=== PATIENT | female | born 1955 | race Caucasian/White ===

== ENCOUNTER 2024-10-06 11:57 | Emergency (ER) | payer MEDICARE, SELFPAY ==
[2024-10-06 11:58] VITALS: BP 159/82; PULSE 88; RESP 16; TEMP 36.1; O2SAT 99; BMI 47.7
--- NOTE | 2024-10-06 12:58 | EX.ED.VIS.EY ---
HPI History of Present Illness Chief Complaint: Eye Problem Informant: patient Onset/Context/Timing Location: Left Eye Onset: Yesterday Context: Sudden Onset Timing: Continuous Worsened by: Bright lights Relieved by: Nothing Associated Symptoms Associated Symptoms - Eyes: Itching, Pain, Photophobia and Redness; Negative for Burning, Crusting, Drainage, Eyelid swelling or Matting History of injury: No Visual correction: Glasses Narrative Narrative: Patient presents with left eye redness that began yesterday. Patient states she started having some pain and mild redness in her left eye and left congregation area last night. Patient states that when she woke up today, the redness was much worse. Patient admits to some itching and photophobia. Patient denies any discharge or drainage. Patient denies any matting or crusting. Patient denies any visual changes. Patient denies any trauma or injury. Patient states she was having some pain over the left temporal area. [facility] Medical History (Updated 10/06/24 @ 16:[address] Guanaco Martinez DO) Cirrhosis Diabetes type 2 Coronary artery disease Allergy/AdvReac Type Severity Reaction Status Date / Time Influenza Virus Vaccines Allergy Severe Anaphylaxis Verified 10/06/24 12:03 (flu vaccine) Corticosteroids AdvReac Intermediate Other Verified 10/06/24 12:03 (Glucocorticoids) Surgical History (Updated 10/06/24 @ 16:[address] Guanaco Martinez DO) Hx of section Hx of total knee replacement History of total hysterectomy with bilateral salpingo-oophorectomy (BSO) Hx of appendectomy Social History Smoking Status: Never smoker ROS ROS ED Constitutional Constitutional ED: Reports chills and subjective; Denies fever(s) Eyes Eyes: Denies blurry vision or change in vision ENT ENT ED: Denies rhinorrhea or sore throat Cardiovascular Cardiovascular: Denies chest pain or palpitations Respiratory/Chest Respiratory/Chest: Denies cough or dyspnea Gastrointestinal Gastrointestinal: Denies nausea or vomiting Genitourinary Genitourinary ED: Denies dysuria or hematuria Musculoskeletal Musculoskeletal: Denies back pain or neck pain Integumentary Denies abscess or rash Neurologic Neurologic: Reports headache(s); Denies weakness Allergic/Immunologic Allergic/Immunologic ED: Denies mouth swelling or urticaria EXAM Physical Exam Const Vital Signs: 10/06/24 11:58 Temperature 96.9 F L Temperature Source Temporal Pulse Rate 88 Respiratory Rate 16 Blood Pressure 159/82 H Blood Pressure Mean 107 Pulse Ox 99 Oxygen Delivery Method Room Air Positive well nourished and well developed General Appearance ED: well developed and NAD HEENT HEENT Narrative: There is minimal tenderness over the left temporal artery. There is some mild tenderness over the left frontal area. There is no bony crepitance or step-off. Eyes Eyes Narrative: Pupils are equal, round, and reactive to light bilaterally. Extraocular muscles are intact. Conjunctiva was somewhat injected on the right. There is also a subconjunctival hemorrhage on the lateral sclera. Anterior chambers are clear. There is no hyphema. There is no cell or flare. Cardio regular rate and regular rhythm Neuro oriented x3, CN's II-XII intact bilaterally, moves all extremities and no sensory deficits noted Sensorium / Orientation: alert Motor Exam: strength 5/5 throughout MDM MDM MDM Narrative Medical decision making narrative: Differential diagnosis includes temporal arteritis, subconjunctival hemorrhage, acute glaucoma, corneal abrasion, iritis, and intracranial bleeding. CT scan of the brain will be obtained to assess for intracranial bleeding. Sed rate will be obtained to assess for temporal arteritis. Radiography Diagnostic Testing: CT scan of the brain was obtained. There is no acute intracranial abnormality. This was interpreted by the radiologist and was also independently reviewed by myself. Treatment and Re-Evaluation Narrative: Tetracaine and fluorescein dye was applied to the left eye. Under slit-lamp examination, there is no corneal abrasion or foreign body noted. Anterior chamber was clear. There is no hyphema. There is no cell or flare. Jairon-Pen was used to measure intraocular pressure. This was 17. Patient was advised of her findings. Patient was instructed to follow-up with her primary care physician in 5 to 7 days. Patient was instructed to return if worse in any way. Patient understood and was agreeable with the plan. All questions were answered. Discharge Plan Triage Chief Complaint: Eye Problem ED Provider: Guanaco Martinez Dx/Rx/DC Orders Clinical Impression: Subconjunctival hemorrhage, Headache Instructions: ED Subconjunctival Hemorrhage Primary Care Provider: Care Physician,No Primary Referrals: Brennon Oconnor MD [Med Staff - Water Quality Control Engineer] - 5-7 Days NOT,DEFINED [Non-Staff] - Print Language: Chinese Disposition Disposition: Home, Self Care
--- NOTE | 2024-10-06 13:06 | CT_ITS ---
EXAM: BRAIN/HEAD WITHOUT CONTRAST CLINICAL HISTORY: Pain COMPARISON: None. TECHNIQUE: Noncontrast images of the head with multiplanar reconstructions. Dose reduction techniques were used including intermediate exposure control (AEC),iterative reconstruction technique, and/or mA and/or KV dose adjustments based on patient's size. FINDINGS: CT HEAD FINDINGS: No acute intracranial hemorrhage, mass, mass effect, midline shift or pathologic extra-axial fluid collection. No hydrocephalus. Age- appropriate cerebral volume and white matter. Visualized paranasal sinuses and mastoid air cells are clear. The calvarium is grossly intact. CT/Brain/Head without Contrast IMPRESSION: No CT evidence of acute intracranial pathology. Reading Location: [place]
[2024-10-06] MEDS: 0.9% Normal Saline (1000mL) 1,000 ML 999 ML IV (13:37)
[2024-10-06] MEDS: Fluorescein 1 MG STRIP 1 STRIP OPHTHALMIC (13:37)
[2024-10-06] MEDS: Tetracaine 0.5% Ophthalmic Bottle 1 DRP OPHTHALMIC (13:37)
[2024-10-06 13:50] LABS: Erythrocyte Sedimentation Rate 12 mm/hr (0-30)
[2024-10-06 14:00] VITALS: BP 136/78; PULSE 64; RESP 18; TEMP 37; O2SAT 98
[2024-10-06 16:00] VITALS: BP 132/84; PULSE 81; RESP 18; O2SAT 99
[2024-10-06 16:52] VITALS: BP 132/84; PULSE 81; RESP 18; TEMP 36.6; O2SAT 99
== END 2024-10-06 16:53 | disposition home or self-care (01) ==
PROVIDERS: Emergency Provider Emergency Medicine; Visit Provider Emergency Medicine
DX: H11.32 Conjunctival hemorrhage, left eye (principal); E11.9 Type 2 diabetes mellitus without complications; R51.9 Headache, unspecified; I25.10 Atherosclerotic heart disease of native coronary artery without angina pectoris
CPT/HCPCS: 70450; 85652; 96360; 96361; 99283

== ENCOUNTER 2024-12-04 09:40 | Inpatient (IN) | payer MEDICARE, SELFPAY ==
[2024-12-04] VITALS (20 sets, daily range): BP systolic 107–160; BP diastolic 45–99; PULSE 72–123; RESP 14–25; TEMP 36.4–36.9; O2SAT 95–100; BMI 46.7
--- NOTE | 2024-12-04 10:08 | CT_ITS ---
PROCEDURE: CTA ABD/PELVIS W/WO CONTRAST 12/04/2024 REASON FOR EXAM: ANEMIA HX OF LOWER GI BLEEDING Chest tightness. TECHNIQUE: CTA imaging of the abdomen and pelvis with intravenous contrast. Coronal and Sagittal reconstruction series were provided. 3D, 3D post processing, 3D reconstructions, Maximum intensity projection (MIPs) Volume rendering and Shaded surface rendering was provided. CONTRAST: Isovue 370 VOLUME: 100mL Gauge IV One or more dose reduction techniques were used (e.g., Automated exposure control, adjustment of the mA and/or kV according to patient size, use of iterative reconstruction technique). RADIATION DOSE SUMMARY: CTDlvol: 30 mGy DLP: 1175.52 mGycm COMPARISON: None FINDINGS: There is evidence of ascites. Nodular contour of the liver suggestive of cirrhosis. Splenomegaly. Gallbladder wall thickening and contraction most likely secondary to the ascites. Sigmoid diverticulosis with no radiographic evidence of diverticulitis. Status post hysterectomy and appendectomy. Aorta: Mild mixed calcified and soft plaque identified. No abdominal aortic aneurysm. Iliac Arteries: Scattered atherosclerotic plaque. No aneurysm or significant stenosis. Celiac: Unremarkable SMA: Unremarkable KAIN : Not visualized Right Renal: Unremarkable Left Renal: Unremarkable Other Findings: The lung bases are unremarkable. CT/CTA Abd/Pelvis W/WO Contrast IMPRESSION: Ascites. Findings suggestive of cirrhosis of the liver with evidence of splenomegaly. Sigmoid diverticulosis. Reading Location: [place] [id number]
--- NOTE | 2024-12-04 10:11 | EX.ED.DYSGE1 ---
HPI History of Present Illness Chief Complaint: Chest Pain Narrative Narrative: Patient is a 69-year-old female with a past medical history of CAD status post 2 stents on Plavix, type 2 diabetes, PARRY with cirrhosis, hypertension, SEVERINO, GERD who presented to the emergency department from her gastroenterology's office with a chief complaint of low hemoglobin. Patient states that from May to June down in [place] where she was originally from she had multiple scopes done as well as a pill swallow study and they discovered that she had some areas of bleeding in her lower intestines she states that she cannot exactly remember the name of this however she states that she has never had to have blood transfusions in the past. They state that they placed her on iron supplementation and her blood count started to improve with this. Patient states that she has been having some chest tightness and shortness of breath recently as well. Patient states that when she was walking here into the emergency department she felt like her symptoms were worsening. [facility] Medical History Bilateral carotid artery disease SEVERINO (obstructive sleep apnea) GERD (gastroesophageal reflux disease) Essential (primary) hypertension Edema Cirrhosis Diabetes type 2 Coronary artery disease Home Medications ?Medication ?Instructions ?Recorded ?Last Taken ?Type cholecalciferol (vitamin D3) 325 50,000 unit PO QODAY 12/04/24 12/03/24 History mcg (13,000 unit) capsule clopidogrel 75 mg tablet (Plavix) 75 mg PO DAILY 12/04/24 12/04/24 History methocarbamol 750 mg tablet 1,500 mg PO QHS 12/04/24 12/03/24 History nitroglycerin 0.4 mg sublingual 0.4 mg sublingual Q5-15M PRN chest 12/04/24 Unknown History tablet pain pantoprazole 20 mg tablet,delayed 20 mg PO QHS 12/04/24 12/03/24 History release simvastatin 10 mg tablet 10 mg PO QHS 12/04/24 12/03/24 History Allergy/AdvReac Type Severity Reaction Status Date / Time Influenza Virus Vaccines Allergy Severe Anaphylaxis Verified 10/06/24 12:03 (flu vaccine) hydrocodone Allergy Angioedema Verified 12/04/24 09:43 Corticosteroids AdvReac Intermediate Other Verified 10/06/24 12:03 (Glucocorticoids) Surgical History History of percutaneous angioplasty (~10/2014) Hx of section Hx of total knee replacement History of total hysterectomy with bilateral salpingo-oophorectomy (BSO) Hx of appendectomy Social History Smoking Status: Never smoker ROS ROS ED ROS Narrative Constitutional: Denies fevers, chills, headaches, lightness, dizziness Eyes: Denies change in vision double vision blurry vision Cardiovascular: Complains of chest pain as noted above denies palpitations Respiratory: Complains shortness of breath denies coughing wheezing Abdomen: Complains of some lower abdominal discomfort denies nausea vomit diarrhea : Denies urinary symptoms Neurological: Denies numbness, wheeze, tingling Musculoskeletal: Denies back pain Skin: Denies rashes or lesions EXAM Physical Exam Narrative Exam Narrative: General: Patient lying in bed rest complete not appear to be in acute distress Head: Atraumatic, normocephalic Eyes: PERRL bilaterally, EOMI bilateral, no conjunctival injection noted Neck: Soft, supple, trachea midline Cardiovascular: Patient tachycardic with a regular rhythm no murmurs gallops rubs noted Respiratory: Clear to auscultation bilaterally Abdomen: Soft, nondistended, nontender to palpation no rebound or guarding on exam Rectal: Rectal exam performed and minimal amount of stool noted however some brown stool was noted no yamileth dark tarry stool Extremities: Patient has bilateral lower extremity swelling but states that she chronically has lower extremity swelling and this is not worse than her baseline Neurological: Denies numbness, exam tingling Skin: Denies rashes or lesions Const Vital Signs: 12/04/24 09:41 12/04/24 10:36 12/04/24 11:00 Temperature 98.2 F Temperature Source Oral Pulse Rate 123 H 97 Respiratory Rate 20 H 15 Respiratory Effort Short of Breath Blood Pressure 160/99 H 151/71 H Blood Pressure Mean 119 97 Blood Pressure Source Blood Pressure Position Blood Pressure Location Pulse Ox 100 96 Oxygen Delivery Method Room Air Room Air 12/04/24 11:46 12/04/24 12:00 12/04/24 12:01 Temperature 97.6 F L 97.9 F Temperature Source Oral Oral Pulse Rate 87 87 87 Respiratory Rate 15 17 18 Respiratory Effort Blood Pressure 138/65 H 142/66 H 142/66 H Blood Pressure Mean 89 91 91 Blood Pressure Source Monitor Monitor Blood Pressure Position Semi-Fowlers Semi-Fowlers Blood Pressure Location Left Arm Left Arm Pulse Ox 97 98 97 Oxygen Delivery Method Room Air Room Air Room Air 12/04/24 12:46 Temperature 98.1 F Temperature Source Oral Pulse Rate 85 Respiratory Rate 25 H Respiratory Effort Blood Pressure 128/49 H Blood Pressure Mean 75 Blood Pressure Source Monitor Blood Pressure Position Semi-Fowlers Blood Pressure Location Left Arm Pulse Ox 98 Oxygen Delivery Method MDM MDM MDM Narrative Medical decision making narrative: Patient is a 69-year-old female who presented to the emergency department the chief complaint of low hemoglobin as well as chest pain and shortness of breath. On the differential diagnose includes but not limited to anemia, ACS, lower GI bleed. Once workup is obtained and reviewed she will be reevaluated. Patient CBC was reviewed and white blood count was noted be 2.8 hemoglobin repeated was 5.7 she was typed and screened for 3 units of blood, patient does have a microcytic anemia with MCV of 68. Patient is thrombocytopenic with a platelet count of 119 she does have a history of cirrhosis and PARRY. Patient's INR 1.5, PT of 18.7. Patient sodium was 139, potassium 3.4, creatinine 0.57. Patient's BUN noted to be 10. Patient's AST and ALT were 39 and 16 respectively. Patient troponin was 8, CRP less than 3. Patient lipase was noted to be 33. Patient CTA of the abdomen pelvis showed ascites finding suggestive of cirrhosis with evidence of splenomegaly sigmoid diverticulosis noted. Patient was fecal occult positive she was given 40 mg IV Protonix I reached out to Dr. Zaman discussed case with him and he believes that she probably has AV malformation based on her previous workups that were done in [place] he will see the patient in consult Will reach out to the hospitalist for admission. Patient's EKG reviewed showed sinus rhythm with a rate of 97 bpm. Discussed case with hospitalist Dr. Aguirre who accept patient for admission. Patient notified as well as significant other bedside all question concerns answered Lab Data Labs: Laboratory Results - last 24 hr 12/04/24 10:19 WBC 2.8 L RBC 3.00 L Hgb 5.7 L* Hct 20.4 L MCV 68.0 L MCH 19.0 L MCHC 27.9 L RDW Std Deviation 44.7 H RDW Coeff of Rafa 18.4 H Plt Count 119 L MPV 10.4 Immature Gran % (Auto) 0.700 Neut % (Auto) 46.9 L Lymph % (Auto) 32.0 Casey % (Auto) 14.7 H Eos % (Auto) 4.3 Baso % (Auto) 1.4 H Absolute Neuts (auto) 1.3 L Absolute Lymphs (auto) 0.89 Nucleated RBC % 0 Diff Path Review May foll Sodium 139 Potassium 3.4 Chloride 108 Carbon Dioxide 20.0 L Anion Gap 11 BUN 10 Creatinine 0.57 L Estim Creat Clear Calc 81.29 Est GFR (MDRD) Non-Af 99 BUN/Creatinine Ratio 17.8 Glucose 111 H Calcium 8.5 Total Bilirubin 0.72 AST 39 H ALT 16 Alkaline Phosphatase 142 H Troponin T High Sens 8 Total Protein 6.2 Albumin 3.4 Globulin 2.8 Albumin/Globulin Ratio 1.2 Lipase 33 Blood Type O POSITIVE Antibody Screen NEGATIVE Crossmatch See Detail Radiography Diagnostic Testing: Clinical Impression(s) from Imaging Studies Abdomen/Pelvis CTA 12/04/24 10:08 IMPRESSION: Ascites. Findings suggestive of cirrhosis of the liver with evidence of splenomegaly. Sigmoid diverticulosis. Reading Location: [place] [id number] Discharge Plan Triage Chief Complaint: Chest Pain Other Complaint: Abn Labs ED Provider: Naga Mcleod Dx/Rx/DC Orders Clinical Impression: Coronary artery disease, Anemia, GI (gastrointestinal bleed), Microcytic anemia Prescriptions: No Action nitroglycerin 0.4 mg tablet, sublingual 0.4 mg sublingual Q5-15M PRN (Reason: chest pain) Rx Instructions: do not exceed 3 doses per episode clopidogrel [Plavix] 75 mg tablet 75 mg PO DAILY pantoprazole 20 mg tablet,delayed release (DR/EC) 20 mg PO QHS Patient Comments: PT UNSURE IF SHE TAKES 20MG OR 40MG. SHE HAD 40MG RECENTLY FILLED, BUT SAID SHE DID NOT PICK ANYTHING UP. simvastatin 10 mg tablet 10 mg PO QHS methocarbamol 750 mg tablet 1,500 mg PO QHS cholecalciferol (vitamin D3) 325 mcg (13,000 unit) capsule 50,000 unit PO QODAY Patient Comments: PT UNSURE OF STRENGTH Primary Care Provider: Casie Nayak Referrals: Casie Nayak, SYSTEM OPERATION SUPERINTENDENT-C [Primary Care Provider] - Print Language: Danish Disposition Disposition: Acute Care Hospital [facility]
[2024-12-04 10:27] LABS: Absolute Lymphocyte Count 0.89 X10^3/uL (0.83-4.51); Absolute Neutrophil Count 1.3 X10^3/uL (2.0-7.7); Basophil# 0.04 X10^3/uL; Basophil% 1.4 % (0-1); Eosinophil# 0.12 X10^3/uL; Eosinophils% 4.3 % (0-5); Hematocrit 20.4 % (37-47); Lymphocyte # 0.89 X10^3/ul (0.83-4.51); Mean Corp Hgb Conc 27.9 g/dL (32-36); Mean Platelet Vol. 10.4 fl (6.2-12.0); Monocyte# 0.41 X10^3/uL; Monocyte% 14.7 % (0-10); NRBC Flagged by Analyzer 0 % (0-5); Neutrophil % 46.9 % (47-70); POSITIVE COUNT YES; Platelet Count 119 K/mm3 (150-450); RBC Distribution Width CV 18.4 % (11.6-14.6); RBC Distribution Width SD 44.7 fl (35.1-43.9); White Blood Count 2.8 K/mm3 (4.4-11.0)
[2024-12-04] MEDS: 0.9% Normal Saline (1000mL) 1,000 ML 999 ML IV (10:41)
[2024-12-04 10:47] LABS: Hemoglobin 5.7 g/dL (12.0-15.0)
[2024-12-04 10:57] LABS: Troponin T High Sensitivity 8 ng/L (<=14)
[2024-12-04 11:03] LABS: ALB/GLOB Ratio 1.2 RATIO (0.9-2.4); AST(SGOT) 39 U/L (<=31); Alanine Aminotransfer ALT/SGPT 16 U/L (<=34); Albumin, Serum 3.4 g/dL (3.4-4.8); Alkaline Phosphatase 142 U/L (35-104); Anion Gap 11 (5-15); BUN 10 mg/dL (4-19); BUN/Creat Ratio 17.8 RATIO (10-20); Calcium,Total 8.5 mg/dL (7.6-11.0); Chloride 108 mmol/L (98-108); Creatinine, Serum 0.57 mg/dL (0.70-1.20); EST Glomerular Filtration Rate 99 (>60); Estimated Creatinine Clearance 81.29 ml/min (50-250); Globulin 2.8 g/dL (2.2-4.2); Glucose 111 mg/dL (70-99); Lipase 33 U/L (13-75); Potassium 3.4 mmol/L (3.3-5.1); Protein, Total 6.2 g/dL (5.9-8.4); Sodium Level 139 mmol/L (133-145); Total Bilirubin 0.72 mg/dL (0.00-1.30)
--- NOTE | 2024-12-04 13:13 | HP.PCM.HOS_ITS ---
HPI - General General Date of Admission: 12/04/24 Date of Service: 12/04/24 Chief Complaint: Abnormal labs HPI Narrative LISSETTE JANE, is a 69 F with past medical history signal for nonalcoholic fatty liver disease, coronary artery disease with previous PCI on antiplatelet therapy, history of anemia for which patient underwent extensive studies including EGD, capsule endoscopy as well as colonoscopy at [facility] in [facility]. Patient was diagnosed with AVMs.. Patient apparently did move to [place] and has been followed by Dr. Zaman with GI. On a routine follow-up patient was found to have hemoglobin of 5.6 was sent to the ED. Patient did complain of progressive shortness of breath with activity as well as chest tightness. Stool guaiac obtained in the emergency department came back positive. An order was given for patient to be transfused with 2 unit PRBC from the emergency department and subsequently admitted to monitored bed with consultation placed to GI FORMERLY [facility], [facility]–1983 Medical History Bilateral carotid artery disease SEVERINO (obstructive sleep apnea) GERD (gastroesophageal reflux disease) Essential (primary) hypertension Edema Cirrhosis Diabetes type 2 Coronary artery disease Home Medications ?Medication ?Instructions ?Recorded ?Last Taken ?Type cholecalciferol (vitamin D3) 325 50,000 unit PO QODAY 12/04/24 12/03/24 History mcg (13,000 unit) capsule clopidogrel 75 mg tablet (Plavix) 75 mg PO DAILY 12/0412/04/24 History methocarbamol 750 mg tablet 1,500 mg PO QHS 12/04/24 0 12/03/24 History nitroglycerin 0.4 mg sublingual 0.4 mg sublingual Q5-1 5M PRN chest 12/04/24 Unknown History tablet pain pantoprazole 20 mg tablet,delayed 20 mg PO QHS 5 12/03/24 History release simvastatin 10 mg tablet 10 mg PO QHS 12/04/24 History Allergy/AdvReac Type Severity Reaction Status Date / Time Influenza Virus Vaccines Allergy Severe Anaphylaxis Verified 10/06/24 12:03 (flu vaccine) hydrocodone Allergy Angioedema Verified 12/04/24 09:43 Corticosteroids AdvReac Intermediate Other Verified 10/06/24 12:03 (Glucocorticoids) Surgical History History of percutaneous angioplasty (~10/2014) Hx of section Hx of total knee replacement History of total hysterectomy with bilateral salpingo-oophorectomy (BSO) Hx of appendectomy Social History Smoking Status: Never smoker ROS ROS Narrative GENERAL: denies fever, chills, night sweats, weight loss, anorexia HEENT: denies headache, sinus congestion, or drainage, dysphagia RESPIRATORY: shortness of breath, dyspnea on exertion CARDIAC: denies chest pain, palpitations, orthopnea, PND GASTROINTESTINAL: denies abdominal pain, nausea, vomiting, melena, GENITOURINARY: denies dysuria, urgency, frequency, heamaturia EXTREMITY: denies swelling MUSCULOSKELETAL: denies current joint pain or tenderness NEUROLOGIC: denies focal numbness, weakness, tingling HEMATOLOGIC: denies easy bruising and/or hemorrhage INTEGUMENT: denies rashes PSYCHIATRIC: denies suicidal or homicidal ideation Vital Signs Vital Signs Vital Signs: 12/04/24 09:41 12/04/24 10:36 12/04/24 11:00 Temperature 98.2 F Temperature Source Oral Pulse Rate 123 H 97 Respiratory Rate 20 H 15 Respiratory Effort Short of Breath Blood Pressure 160/99 H 151/71 H Blood Pressure Mean 119 97 Blood Pressure Source Blood Pressure Position Blood Pressure Location Pulse Ox 100 96 Oxygen Delivery Method Room Air Room Air 12/04/24 11:46 12/04/24 12:00 12/04/24 12:01 Temperature 97.6 F L 97.9 F Temperature Source Oral Oral Pulse Rate 87 87 87 Respiratory Rate 15 17 18 Respiratory Effort Blood Pressure 138/65 H 142/66 H 142/66 H Blood Pressure Mean 89 91 91 Blood Pressure Source Monitor Monitor Blood Pressure Position Semi-Fowlers Semi-Fowlers Blood Pressure Location Left Arm Left Arm Pulse Ox 97 98 97 Oxygen Delivery Method Room Air Room Air Room Air 12/04/24 12:46 12/04/24 13:00 Temperature 98.1 F Temperature Source Oral Pulse Rate 85 87 Respiratory Rate 25 H 20 H Respiratory Effort Blood Pressure 128/49 H 128/49 H Blood Pressure Mean 75 75 Blood Pressure Source Monitor Blood Pressure Position Semi-Fowlers Blood Pressure Location Left Arm Pulse Ox 98 100 Oxygen Delivery Method Room Air Weight Weight: 116.12 kg Body Mass Index (BMI) 46.7 Physical Exam Narrative GENERAL: cooperative HEENT: Atraumatic; normocephalic EYES; Anicteric, Normal Conjunctiva NECK; supple, normal thyroid, RESPIRATORY: Diminished to auscultation CARDIOVASCULAR: Regular S1 S2, GI: soft, normoactive bowel sounds, : No Renal angle tenderness; EXTREMITIES: No edema, no clubbing, MUSCULOSKELETAL: no muscle wasting NEURO: Awake; no lateralizing signs. SKIN: No Rash PSYCH; Flat affect Results Lab / Micro Data 12/04/24 10:19 12/04/24 10:19 Labs: Laboratory Results - last 24 hr 12/04/24 10:19: WBC 2.8 L, RBC 3.00 L, Hgb 5.7 L*, Hct 20.4 L, MCV 68.0 L, MCH 19.0 L, MCHC 27.9 L, RDW Std Deviation 44.7 H, RDW Coeff of Rafa 18.4 H, Plt Count 119 L, MPV 10.4, Immature Gran % (Auto) 0.700, Neut % (Auto) 46.9 L, Lymph % (Auto) 32.0, [place] % (Auto) 14.7 H, Eos % (Auto) 4.3, Baso % (Auto) 1.4 H, A bsolute Neuts (auto) 1.3 L, Absolute Lymphs (auto) 0.89, Nucleated RBC % 0, Diff Path Review January, Sodium 139, Potassium 3.4, Chloride 108, Carbon Dioxide 20.0 L, Anion Gap 11, BUN 10, Creatinine 0.57 L, Estim Creat Clear Calc 81.29, Est GFR (MDRD) Non-Af 99, BUN/Creatinine Ratio 17.8, Glucose 111 H, Calcium 8.5, Total Bilirubin 0.72, AST 39 H, ALT 16, Alkaline Phosphatase 142 H, Troponin T High Sens 8, Total Protein 6.2, Albumin 3.4, Globulin 2.8, Albumin/Globulin Ratio 1.2, Lipase 33, Blood Type O POSITIVE, Antibody Screen NEGATIVE, Crossmatch See Detail Micro: Microbiology 12/04/24 10:19 Stool Stool Occult Blood (ZEENAT) - Final Occult Blood Positive Imaging Radiology Impression Abdomen/Pelvis CTA 12/04/24 10:08 IMPRESSION: Ascites. Findings suggestive of cirrhosis of the liver with evidence of splenomegaly. Sigmoid diverticulosis. Reading Location: [facility] Assessment & Plan Assessment/Plan (1) Microcytic anemia: PLAN: Plan Patient is a 69-year-old female presenting with severe anemia. Patient was also found to have marked microcytosis with hemoglobin 5.7 and MCV of 68. Stool guaiac came back positive admitted to monitored bed for subsequent management 1. Severe anemia ? Secondary to suspected chronic blood loss anemia per patient she has had extensive workup at this [facility] in [place]. Requested for old records. Patient stool guaiac came back positive subsequently started on Protonix. Patient is on clopidogrel for CAD with previous PCI held. An order was given for patient to be transfused with 2 unit PRBC subsequent monitoring with serial H&H ordered 2. Coronary artery disease ? With previous PCI ; Patient is on clopidogrel as well as simvastatin. Clopidogrel held given patient anemia 3. GERD ? Patient is on PPI 4. Diabetes mellitus type II -patient's oral hypoglycemics held. Placed on long acting insulin, Accu-Cheks a.c. and at bedtime and covered with sliding scale insulin 5. Nonalcoholic fatty liver disease ? Patient currently being followed by Dr. Zaman with GI as outpatient 6. Class III obesity with BMI of 46.8 ? Complicating care weight loss advised 7. Dyslipidemia ?Patient is on statin therapy, continued at home dose 8. DVT prophylaxis ? Chemoprophylaxis contraindicated given patient severe anemia Time spent in the patient's overall evaluation,decision-making process, review of diagnostic data, adjustment of management, discussion with other providers, nursing nursing and ancillary staff involved in patient's care documentation, 75 Minutes Advance planning; did discuss with the patient and family regarding advanced directives as well as CODE STATUS. Did explain the various scenarios involved ( FULL CODE, DNR CCA, DNR CCA with no intubation, and DNR CC and what each meant) patient elected to remain full code with CPR intubation if needed. Order was placed. Time spent on discussion 16 minutes. Charges/Coding Multi Select Codes Visit Charges Visit Charges: 91266 Init Hosp L3 Hospitalists' Procedures Procedures: 72184 Advncd Care Plan 30 Min
[2024-12-04] MEDS: Acetaminophen 500 MG Tablet 1000 MG PO (13:52)
[2024-12-04] MEDS: Pantoprazole Sodium 80 MG in 0.9% Normal Saline (100mL Bag) 80 ML 10 MG CONT INF (13:53)
[2024-12-04] MEDS: Pantoprazole Sodium 40 MG in 0.9% Normal Saline (100mL MB+) 100 ML 330 MG IV ×2 (13:54→21:23)
[2024-12-04 14:08] LABS: Troponin T High Sens 2 HR 17 ng/L (<=14)
[2024-12-04] MEDS: 0.9% Saline Lock 10 ML Syringe IV ×2 (19:07→21:24)
[2024-12-04] MEDS: Atorvastatin Calcium 10 MG Tablet 5 MG PO (20:18)
[2024-12-04] MEDS: Acetaminophen 325 MG Tablet 650 MG PO (20:19)
[2024-12-04] MEDS: Methocarbamol 750 MG Tablet 1500 MG PO (20:19)
[2024-12-04 23:53] LABS: Troponin T High Sens 4 HR 12 ng/L (<=14)
[2024-12-05] VITALS (18 sets, daily range): BP systolic 108–148; BP diastolic 62–90; PULSE 70–96; RESP 16–20; TEMP 36.6–37.2; O2SAT 93–99; BMI 46.7
--- NOTE | 2024-12-05 05:55 | EKG12_ITS ---
Test Reason : CP Blood Pressure : */* mmHG Vent. Rate : 97 BPM Atrial Rate : 97 BPM P-R Int : 180 ms QRS Dur : 86 ms QT Int : 352 ms P-R-T Axes : 23 53 39 degrees QTcB Int : 447 ms Normal sinus rhythm minor Nonspecific ST abnormality Borderline Confirmed by Jose Vail ([id number]), photo editor ADAN RODRIGUEZ ([id number]) on 12/05/2024 7:56:14 AM Referred By: Confirmed By: Jose Vail
[2024-12-05 05:56] LABS: Absolute Lymphocyte Count 1.01 X10^3/uL (0.83-4.51); Absolute Neutrophil Count 1.3 X10^3/uL (2.0-7.7); Basophil# 0.03 X10^3/uL; Basophil% 1.1 % (0-1); Eosinophil# 0.15 X10^3/uL; Eosinophils% 5.4 % (0-5); Hematocrit 26.2 % (37-47); Lymphocyte # 1.01 X10^3/ul (0.83-4.51); Lymphocyte % 36.3 % (19-41); Mean Corp Hgb Conc 30.5 g/dL (32-36); Mean Corpuscular Volume 72.2 fL (81-99); Mean Platelet Vol. 10.1 fl (6.2-12.0); Monocyte# 0.32 X10^3/uL; Monocyte% 11.5 % (0-10); NRBC Flagged by Analyzer 0 % (0-5); Neutrophil # 1.27 X10^3/uL (2.7-7.7); Neutrophil % 45.7 % (47-70); POSITIVE MORPHOLOGY YES; Platelet Count 105 K/mm3 (150-450); RBC Distribution Width SD 54.6 fl (35.1-43.9); Red Blood Count 3.63 M/mm3 (4.2-5.4); White Blood Count 2.8 K/mm3 (4.4-11.0)
[2024-12-05 06:02] LABS: International Normalized Ratio 1.6; Prothrombin Time (Protime)PT. 19.1 SECONDS (11.7-14.9)
[2024-12-05 06:03] LABS: Partial Thromboplast Time 33.1 Seconds (24.1-36.2)
[2024-12-05 06:23] LABS: Differential Indicated SCAN CRITERIA MET
[2024-12-05 06:43] LABS: Anion Gap 9 (5-15); BUN 6 mg/dL (4-19); BUN/Creat Ratio 10.8 RATIO (10-20); Calcium,Total 8.4 mg/dL (7.6-11.0); Carbon Dioxide 19.6 mmol/L (21.0-32.0); Chloride 111 mmol/L (98-108); Creatinine, Serum 0.55 mg/dL (0.70-1.20); EST Glomerular Filtration Rate 100 (>60); Glucose 90 mg/dL (70-99); Magnesium 1.8 mg/dL (1.5-2.2); Potassium 3.7 mmol/L (3.3-5.1); Sodium Level 139 mmol/L (133-145)
[2024-12-05 07:23] LABS: Anisocytosis 1+
[2024-12-05] MEDS: Pantoprazole Sodium 40 MG in 0.9% Normal Saline (100mL MB+) 100 ML 330 MG IV ×2 (09:24→21:25)
--- NOTE | 2024-12-05 11:08 | PCM.PN.HOSP ---
Reason for Visit Reason for Visit: Diagnoses Iron deficiency anemia, unspecified (12/04/24) Subjective Subjective Patient is a 69-year-old female presenting with severe anemia. Patient was also found to have marked microcytosis with hemoglobin 5.7 and MCV of 68. Stool guaiac came back positive admitted to monitored bed for subsequent management. Patient was transfused with 2 unit PRBC subsequently admitted to monitored bed with consultation placed to GI Objective Data Objective Data Vital Signs: Vital Signs Temp Pulse Resp BP Pulse Ox O2 Del Method 97.9 F 77 18 127/75 H 94 Room Air 12/05/24 09:20 12/05/24 09:20 12/05/24 09:20 12/05/24 09:20 12/05/24 09:20 12/05/24 10:00 Oxygen Delivery Method Room Air Weight: 115.9 kg Body Mass Index (BMI) 46.7 Intake & Output: Intake and Output for Last 24 Hours 12/03/24 12/04/24 12/05/24 23:59 23:59 23:59 Intake Total 2520 / 2520 110 / 110 Output Total 0 / 0 Balance 2520 / 2520 110 / 110 Lab / Micro Data 12/05/24 05:27 12/05/24 05:27 Labs: Laboratory Results - last 24 hr 12/04/24 10:19: Crossmatch See Detail 12/04/24 13:41: Troponin T Hi Sens 2 Hr 17 H 12/04/24 22:58: Troponin T Hi Sens 4Hr 12 12/05/24 05:27: WBC 2.8 L, RBC 3.63 L, Hgb 8.0 L, Hct 26.2 L, MCV 72.2 L D, MCH 22.0 L, MCHC 30.5 L D, RDW Std Deviation 54.6 H, RDW Coeff of Rafa 21.0 H, Plt Count 105 L, MPV 10.1, Immature Gran % (Auto) 0.000, Neut % (Auto) 45.7 L, Lymph % (Auto) 36.3, [place] % (Auto) 11.5 H, Eos % (Auto) 5.4 H, Baso % (Auto) 1.1 H, Absolute Neuts (auto) 1.3 L, Absolute Lymphs (auto) 1.01, Nucleated RBC % 0, Anisocytosis 1+, PT 19.1 H, INR 1.6, APTT 33.1, Sodium 139, Potassium 3.7, Chloride 111 H, Carbon Dioxide 19.6 L, Anion Gap 9, BUN 6, Creatinine 0.55 L, Estim Creat Clear Calc 81.20, Est GFR (MDRD) Non-Af 100, BUN/Creatinine Ratio 10.8, Glucose 90, Calcium 8.4, Phosphorus 3.0, Magnesium 1.8 Micro: Microbiology 12/04/24 10:19 Stool Stool Occult Blood (ZEENAT) - Final Occult Blood Positive Radiography Diagnostic Testing: Radiology Impression Abdomen/Pelvis CTA 12/04/24 10:08 IMPRESSION: Ascites. Findings suggestive of cirrhosis of the liver with evidence of splenomegaly. Sigmoid diverticulosis. Reading Location: [place] [address] Physical Exam Narrative GENERAL: cooperative HEENT: Atraumatic; normocephalic EYES; Anicteric, Normal Conjunctiva NECK; supple, normal thyroid, RESPIRATORY: Diminished to auscultation CARDIOVASCULAR: Regular S1 S2, GI: soft, normoactive bowel sounds, : No Renal angle tenderness; EXTREMITIES: No edema, no clubbing, MUSCULOSKELETAL: no muscle wasting NEURO: Awake; no lateralizing signs. SKIN: No Rash PSYCH; Flat affect Assessment & Plan Assessment/Plan (1) Microcytic anemia: PLAN: Plan Patient is a 69-year-old female presenting with severe anemia. Patient was also found to have marked microcytosis with hemoglobin 5.7 and MCV of 68. Stool guaiac came back positive admitted to monitored bed for subsequent management 1. Severe anemia ? Secondary to suspected chronic blood loss anemia per patient she has had extensive workup at this [facility] in [place]. Requested for old records. Patient stool guaiac came back positive subsequently started on Protonix. Patient is on clopidogrel for CAD with previous PCI held. An order was given for patient to be transfused with 2 unit PRBC subsequent monitoring with serial H&H ordered ? 12/05/2024; patient was transfused with 2 unit PRBC hemoglobin up to 8.0 patient scheduled to undergo endoscopic evaluation by GI. 2. Coronary artery disease ? With previous PCI ; Patient is on clopidogrel as well as simvastatin. Clopidogrel held given patient anemia 3. GERD ? Patient is on PPI 4. Diabetes mellitus type II -patient's oral hypoglycemics held. Placed on long acting insulin, Accu-Cheks a.c. and at bedtime and covered with sliding scale insulin 5. Nonalcoholic fatty liver disease ? Patient currently being followed by Dr. Zaman with GI as outpatient 6. Class III obesity with BMI of 46.8 ? Complicating care weight loss advised 7. Dyslipidemia ?Patient is on statin therapy, continued at home dose 8. DVT prophylaxis ? Chemoprophylaxis contraindicated given patient severe anemia Time spent in the patient's overall evaluation,decision-making process, review of diagnostic data, adjustment of management, discussion with other providers, nursing nursing and ancillary staff involved in patient's care documentation, 50-minute Charges/Coding Visit Charges Inpatient E&M: 04406 Subs Hosp L3
--- NOTE | 2024-12-05 11:45 | CASEMGMT ---
RN CM Face to Face with patient for initial transition planning/care coordination assessment. RN CM introduced self and role at [facility]. Patient lying in bed, alert and oriented. Patient willing to participate in assessment and is able to answer all questions appropriately. Care providers, pharmacy, and demographics verified. Strata: 2 PCP: Nael Specialists: Friend, GI; Anthony, biological chemist; [facility] Preferred Pharmacy: [facility] Insurance: [employer] Prescription Benefit: yes Living Will/HPOA: yes but they are from [place], would like to redo for [facility] notified LNOK: , Son Living Arrangements: Patient lives with in a 2 story home. Patient is independent and able to ambulate stairs. Transportation: self, DME/HHC: Patient states she has cane, walker, cpap, and pulse ox at home. No previous HHC or SNF Patient wishes to discharge home, denies need for home health at this time. Patient states she has no further needs or concerns at this time. CM to follow for discharge planning needs that may arise. Disposition Plan: Patient to discharge home with family support and follow-up plans in place. Ashley CHAN, RN, CM
--- NOTE | 2024-12-05 13:42 | EKG12_ITS ---
Test Reason : SOB Blood Pressure : */* mmHG Vent. Rate : 79 BPM Atrial Rate : 79 BPM P-R Int : 174 ms QRS Dur : 82 ms QT Int : 394 ms P-R-T Axes : 10 49 37 degrees QTcB Int : 451 ms Normal sinus rhythm Normal ECG When compared with ECG of 04-Dec-2024 09:49, No significant change was found Confirmed by ELLIOT MAS, SAVANNAH ([id number]), manager editorial ADAN RODRIGUEZ ([id number]) on 12/06/2024 1:21:46 PM Referred By: Confirmed By: SAVANNAH ZARATE MD
[2024-12-05] MEDS: Nitroglycerin (INPATIENT USE) 0.4 MG TAB.SUBL SL (14:03)
[2024-12-05 15:01] LABS: Troponin T High Sensitivity 8 ng/L (<=14)
--- NOTE | 2024-12-05 15:29 | CHAPLAIN ---
Type of Pastoral Visit _x__ Initial Visit ___ Follow-up Visit ___ On-call Visit ___ General Patient Visit ___ Spiritual Assessment ___ Family Conference ___ Bereavement ___ Rapid Response ___ Code Blue ___ Other (describe below) Pastoral Care Referral From _x__ Patient ___ Family ___ Nurse ___ Physician ___ Vice President [employer] ___ Lending Advisor ___ Other (describe below) Sacrament/Intervention _x__ Active listening ___ Anointing ___ Hinduism ___ Bereavement ___ Communion _x__ Dina exploration ___ _x__ Life review _x__ Prayer ___ Reconciliation ___ Sacrament of Sick _x__ Supportive presence ___ Wedding ___ Other (describe below) Pastoral Comments patient is welcoming and speaks of dina and seeing God work miracles; pt and spouse recently moved to this area from [place] to be closer to family; pt expresses how they found a adventist; pt describes her health and the many firsts that she is experiencing; spouse walks into room and begins to interact in the conversation; presence and prayer welcomed
[2024-12-05 16:33] LABS: Troponin T High Sens 2 HR 9 ng/L (<=14)
--- NOTE | 2024-12-05 16:51 | PCM.PRE.AN2 ---
ASA Classification* ASA Classification ASA Classification: 3 Assessment & Plan Anesthesia* Anesthesia Assessment Anesthesia Assessment: Discussed sedation and/or anesthesia options, risks, benefits, and alternatives with patient/parents/legal guardian/POA. Questions invited. The patient/parents/legal guardian/POA seems to understand and agrees to proceed with anesthesia plan. Reviewed the physical assessment, medical history, allergy history and patient home medications list prior to surgery/procedure/anesthetic and documented any changes. Performed airway and anesthesia risk assessments. Anesthesia Type Anesthesia Type: MAC History Source History Obtained from:: Patient and Chart Anesthesia Focused Assessment* Temperature: 98.0 F Pulse Rate: 79 Blood Pressure: 137/86 Respiratory Rate: 20 Pulse Ox: 94 Oxygen Delivery Method: Room Air Airway Assessment Mouth opens: >3 cm Mallampati Score: II Teeth Condition: Dentures (Top dentures are out) Neck Range of motion (ROM): Limited ROM (Slight decrease in extension) Focused Labs Anesthesia Preop lab: CBC WBC 2.8 K/mm3 (4.4-11.0) L 12/05/24 05:12/05/24 RBC 3.63 M/mm3 (4.2-5.4) L 12/05/24 05:12/05/24 Hct 26.2 % (37-47) L 12/05/24 05:12/05/24 Plt Count 105 K/mm3 (150-450) L 12/05/24 05:27 12/05/24 CHEMISTRY Potassium 3.7 mmol/L (3.3-5.1) 12/05/24 05:12/05/24 Sodium 139 mmol/L (133-145) 12/05/24 05:12/05/24 Magnesium 1.8 mg/dL (1.5-2.2) 12/05/24 05:12/05/24 Phosphorus 3.0 mg/dL (2.7-4.5) 12/05/24 05:12/05/24 BUN 6 mg/dL (4-19) 12/05/24 05:12/05/24 Creatinine 0.55 mg/dL (0.70-1.20) L 12/05/24 05:12/05/24 Glucose 90 mg/dL (70-99) 12/05/24 05:27 12/05/24 COAG PT 19.1 SECONDS (11.7-14.9) H 12/05/24 05:27 12/05/24 Lab additional comments: Patient had troponins at 13:52 today. They were normal range. Pre-Assessment Diagnosis/Proposed Procedure Planned Operative Procedure(s): Esophagogastroduodenoscopy Anesthesia History Anesthesia History - education specialist: Anesthesia History - education specialist Hx Hospitalization Any Problems With Anesthesia Cholinesterase deficiency You/Your Family Experience fever (hyperthermia) with Relationship Recent Exposure to Contagious Disease Does patient have nerve stimulator Patient instructed to have device shut off --Does patient have Pacemaker or ICD? When Was Last Pacemaker Check QUESTION #4 FULL TEXT: You/Your Family Experience fever (hyperthermia) with Anesthesia Last Oral Intake Last Oral intake: Last Oral Intake NPO since Meds taken in AM with sips of water? Meds patient instructed to take am of surgery Any additional information?: Yes NPO since: 08:00 (Patient had clear liquids and Armenian ice at 8 AM.) PONV PONV - education specialist: PONV - education specialist Female HX of Motion Sickness HX of N/V After Surgery Non-Smoker Duration of Surgery greater than 60 minutes Number of Risk Factors PONV Score Height & Weight Height & Weight: Anesthesia: Height & Weight Height 5 ft 2 in 12/05/24 11:13 Weight: 115.9 kg 12/05/24 11:13 Body Mass Index (BMI) 46.7 12/04/24 17:11 Respiratory Assessment Respiratory Assessment - education specialist: Respiratory Tract Infection Hx - education specialist Hx Respiratory Tract Infection STOP Sleep Apnea STOP Sleep Apnea - education specialist: STOP Sleep Apnea - education specialist Hx Hypertension No 12/04/24 17:11 Hx Sleep Apnea Yes 12/04/24 17:11 CPAP Yes 12/04/24 17:11 BIPAP No 12/04/24 17:11 Do you snore loudly (louder than talking or can be heard Do you often feel tired/ fatigued/ sleepy during daytime? Has anyone observed you stop breathing during sleep? STOP Results Positive 12/04/24 17:11 QUESTION #5 FULL TEXT : Do you snore loudly (louder than talking or can be heard through closed doors)? Tobacco Use History Tobacco Use History - education specialist: Tobacco Use History - education specialist Tobacco Use Smoking Status Never smoker 12/04/24 17:11 Hx Tobacco Use No 12/04/24 17:11 Years Smoking Packs Smoked per Day Smoking Cessation Date was within the last 15 years Hx Smoking Cessation Date Hx Smoking Cessation Counseling Hematologic Medial History Hematologic Hx - education specialist: Hematologic Medical Hx - retail sales specialist Hx of Blood Transfusion No 12/04/24 17:11 Hx of Transfusion in last 3 No 12/04/24 17:11 Months Date of Last Transfusion (if within last 3 months) Ever experience any problems No 12/04/24 17:11 with transfusion(s)? Specify any problems Hx of Preganancy in last 3 No 12/04/24 17:11 Months Nurse Filling Out Transfusion JNORRIS 12/04/24 17:11 & Questions: Date: 12/04/24 12/04/24 17:11 Time: 17:16 12/04/24 17:11 Patient unable to answer at this time (ie. confused, unrespo /Reproduction History /Reproductive History - education specialist: /Reproductive Hx- education specialist Hx Now Gestational Age (in weeks): EDC: Hx Hx Para Hx Section SAB Active Medications Active Medications: Current Medications Generic Name Dose Route Start Last Admin Trade Name Freq PRN Reason Stop Dose Admin Acetaminophen 650 mg 12/04/24 17:06 12/04/24 20:19 Acetaminophen 325 Mg Tablet PO 650 mg Q6H PRN PRN Administration Pain 1-10 Or Fever>100.7 Atorvastatin Calcium 5 mg 12/04/24 22:00 12/04/24 20:18 Atorvastatin Calcium 10 Mg Tablet PO 5 mg QHS ELLIOTT Administration Pantoprazole Sodium 40 mg/ 110 mls @ 330 mls/hr 12/04/24 22:00 12/05/24 09:56 Sodium Chloride IV Infused Q12 ELLIOTT Infusion Sodium Chloride 100 mls @ 15 mls/hr 12/04/24 17:22 IV .Q6H40M PRN SALINE FLUSH Sodium Chloride 100 mls @ 15 mls/hr 12/04/24 17:22 IV .Q6H40M PRN Saline Flush Sodium Chloride 100 mls @ 15 mls/hr 12/04/24 17:22 IV .Q6H40M PRN Additional IVPB Infusion Melatonin 3 mg 12/04/24 17:06 Melatonin 3 Mg Tablet PO QHS PRN PRN INSOMNIA Methocarbamol 1,500 mg 12/04/24 22:00 12/04/24 20:19 Methocarbamol 750 Mg Tablet PO 1,500 mg QHS ELLIOTT Administration Nitroglycerin 0.4 mg 12/04/24 17:06 12/05/24 14:03 Nitroglycerin (Inpatient Use) 0.4 Mg Tab.Subl SL 0.4 tablet Q5M PRN Administration chest pain Ondansetron HCl 4 mg 12/04/24 17:06 Ondansetron 4 Mg/2 Ml Vial IV Q8H PRN PRN NAUSEA/VOMITING Sodium Chloride 10 - 40 ml 12/04/24 17:22 12/04/24 21:24 0.9% Saline Lock 10 Ml Syringe IV 10 ml UD PRN Administration SALINE FLUSH PFSH Medical History Bilateral carotid artery disease SEVERINO (obstructive sleep apnea) GERD (gastroesophageal reflux disease) Essential (primary) hypertension Edema Cirrhosis Diabetes type 2 Coronary artery disease Home Medications ?Medication ?Instructions ?Recorded ?Last Taken ?Type cholecalciferol (vitamin D3) 325 50,000 unit PO QODAY 12/04/24 12/03/24 History mcg (13,000 unit) capsule clopidogrel 75 mg tablet (Plavix) 75 mg PO DAILY 12/04/24 12/04/24 History methocarbamol 750 mg tablet 1,500 mg PO QHS 12/04/24 12/03/24 History nitroglycerin 0.4 mg sublingual 0.4 mg sublingual Q5-15M PRN chest 12/04/24 Unknown History tablet pain pantoprazole 20 mg tablet,delayed 20 mg PO QHS 12/04/24 12/03/24 History release simvastatin 10 mg tablet 10 mg PO QHS 12/04/24 12/03/24 History Allergy/AdvReac Type Severity Reaction Status Date / Time Influenza Virus Vaccines Allergy Severe Anaphylaxis Verified 10/06/24 12:03 (flu vaccine) hydrocodone Allergy Angioedema Verified 12/04/24 09:43 Corticosteroids AdvReac Intermediate Other Verified 10/06/24 12:03 (Glucocorticoids) Surgical History History of percutaneous angioplasty (~10/2014) Hx of section Hx of total knee replacement History of total hysterectomy with bilateral salpingo-oophorectomy (BSO) Hx of appendectomy Social History Smoking Status: Never smoker Review of Systems (Anesthesia) ROS Narrative System reviewed and no additional complaints, except as documented.
--- NOTE | 2024-12-05 18:25 | EX.PCM.CON.G ---
HPI Consult Data Date of Consult: 12/05/24 HPI Narrative Reason for Consultation: Anemia HPI Narrative: LISSETTE JANE, is a 69-year-old female with a past medical history of CAD status post 2 stents on Plavix, type 2 diabetes, PARRY with cirrhosis, hypertension, SEVERINO, GERD who presented to the emergency department with a chief complaint of low hemoglobin. Patient states that from May to June down in [place] where she was originally from she had multiple scopes done as well as a pill swallow study and they discovered that she had some areas of bleeding in her lower intestines she states that she cannot exactly remember the name of this however she states that she has never had to have blood transfusions in the past. They state that they placed her on iron supplementation and her blood count started to improve with this. Patient states that she has been having some chest tightness and shortness of breath recently as well. Patient states that when she was walking here into the emergency department she felt like her symptoms were worsening. Pt diagnosed with cirrhosis about one year in [place]. She has not had consistent f/u with GI in the past. Her last EGD was in 2023 showing gastric varices. On a routine follow-up patient was found to have hemoglobin of 5.6 was sent to the ED. Patient did complain of progressive shortness of breath with activity as well as chest tightness. Stool guaiac obtained in the emergency department came back positive. An order was given for patient to be transfused with 2 unit PRBC from the emergency department COUNT INCLUDES THE [facility] Medical History Bilateral carotid artery disease SEVERINO (obstructive sleep apnea) GERD (gastroesophageal reflux disease) Essential (primary) hypertension Edema Cirrhosis Diabetes type 2 Coronary artery disease Home Medications ?Medication ?Instructions ?Recorded ?Last Taken ?Type cholecalciferol (vitamin D3) 325 50,000 unit PO QODAY 12/04/24 12/03/24 History mcg (13,000 unit) capsule clopidogrel 75 mg tablet (Plavix) 75 mg PO DAILY 12/04/24 12/04/24 History methocarbamol 750 mg tablet 1,500 mg PO QHS 12/04/24 12/03/24 History nitroglycerin 0.4 mg sublingual 0.4 mg sublingual Q5-15M PRN chest 12/04/24 Unknown History tablet pain pantoprazole 20 mg tablet,delayed 20 mg PO QHS 12/04/24 12/03/24 History release simvastatin 10 mg tablet 10 mg PO QHS 12/04/24 12/03/24 History Allergy/AdvReac Type Severity Reaction Status Date / Time Influenza Virus Vaccines Allergy Severe Anaphylaxis Verified 10/06/24 12:03 (flu vaccine) hydrocodone Allergy Angioedema Verified 12/04/24 09:43 Corticosteroids AdvReac Intermediate Other Verified 10/06/24 12:03 (Glucocorticoids) Surgical History History of percutaneous angioplasty (~10/2014) Hx of section Hx of total knee replacement History of total hysterectomy with bilateral salpingo-oophorectomy (BSO) Hx of appendectomy Social History Smoking Status: Never smoker ROS Constitutional Constitutional: Denies fatigue, fever(s), poor appetite, weight gain or weight loss Gastrointestinal Gastrointestinal: Denies belching, bloating, change in bowel habits, change in stool character, chewing difficulty, coffee ground emesis, constipation, cramping, diarrhea, dyspepsia, dysphagia, early satiety, excessive flatus, fecal incontinence, heartburn, hematemesis, hematochezia, hemorrhoids, loose stools, melena, nausea, odynophagia, rectal bleeding, tenesmus, vomiting or weight changes Physical Exam Narrative GENERAL: cooperative HEENT: Atraumatic; normocephalic EYES; Anicteric, Normal Conjunctiva NECK; supple, normal thyroid, RESPIRATORY: Diminished to auscultation CARDIOVASCULAR: Regular S1 S2, GI: soft, normoactive bowel sounds, : No Renal angle tenderness; EXTREMITIES: No edema, no clubbing, MUSCULOSKELETAL: no muscle wasting NEURO: Awake; no lateralizing signs. SKIN: No Rash PSYCH; Flat affect Lab / Micro Data 12/05/24 05:27 12/05/24 05:27 Labs: Laboratory Results - last 24 hr 12/04/24 10:19: Crossmatch See Detail 12/04/24 22:58: Troponin T Hi Sens 4Hr 12 12/05/24 05:27: WBC 2.8 L, RBC 3.63 L, Hgb 8.0 L, Hct 26.2 L, MCV 72.2 L D, MCH 22.0 L, MCHC 30.5 L D, RDW Std Deviation 54.6 H, RDW Coeff of Rafa 21.0 H, Plt Count 105 L, MPV 10.1, Immature Gran % (Auto) 0.000, Neut % (Auto) 45.7 L, Lymph % (Auto) 36.3, [place] % (Auto) 11.5 H, Eos % (Auto) 5.4 H, Baso % (Auto) 1.1 H, Absolute Neuts (auto) 1.3 L, Absolute Lymphs (auto) 1.01, Nucleated RBC % 0, Anisocytosis 1+, PT 19.1 H, INR 1.6, APTT 33.1, Sodium 139, Potassium 3.7, Chloride 111 H, Carbon Dioxide 19.6 L, Anion Gap 9, BUN 6, Creatinine 0.55 L, Estim Creat Clear Calc 81.20, Est GFR (MDRD) Non-Af 100, BUN/Creatinine Ratio 10.8, Glucose 90, Calcium 8.4, Phosphorus 3.0, Magnesium 1.8 12/05/24 13:52: Troponin T High Sens 8 12/05/24 15:38: Troponin T Hi Sens 2 Hr 9 Assessment & Plan Assessment/Plan (1) Microcytic anemia: PLAN: Plan Patient is a 69-year-old female presenting with severe microcytic anemia. Hemoglobin 5.7 and MCV of 68. Stool guaiac came back positive. Severe microcyctic anemia ? Secondary to suspected chronic blood loss anemia. Patient stool guaiac came back positive subsequently started on Protonix. Patient is on clopidogrel for CAD with previous PCI held. An order was given for patient to be transfused with 2 unit PRBC subsequent monitoring with serial H&H ordered ? 12/05/2024; patient was transfused with 2 unit PRBC hemoglobin up to 8.0 patient scheduled to undergo endoscopic evaluation. Charges/Coding Visit Charges Inpatient E&M: 42553 Init Hosp L3
--- NOTE | 2024-12-05 18:56 | OP.CCLET_ITS ---
12/05/2024 Natalie Mishra Re : Upper GI endoscopy procedure for Dian Cabrera Dear Nael This procedure was performed on December. My impressions and recommendations are as follows: Impressions : - Grade II esophageal varices. - Portal hypertensive gastropathy. - Four bleeding angiodysplastic lesions in the duodenum. Treated with a heater probe. - Two angiodysplastic lesions in the jejunum. Treated with a heater probe. - No specimens collected. Recommendations : - Return [facility]. - Full liquid diet today. - Continue present medications. - Nadolol 10 mg twice daily for variceal prophylaxis - Capsule endoscopy My findings are described in the full procedure note, which is enclosed. If I can be of further assistance, please feel free to contact me at . Sincerely, Francisco Zaman, 12/05/2024 6:55:54 PM This report has been signed electronically.
--- NOTE | 2024-12-05 18:56 | OP.EGD_ITS ---
Patient Name: Dian Cabrera Procedure Date: 12/05/2024 6:26 PM Date of : 1955 Age: 69 Procedure: Upper GI endoscopy Indications: Iron deficiency anemia, Recent gastrointestinal bleeding, For therapy of esophageal varices with bleeding Providers: Francisco Zaman DO Medicines: Monitored Anesthesia Care Patient Profile: This is a 69 year old female. Refer to note in patient chart for documentation of history and physical. Patient has symptoms. Her most recent colonoscopy for treatment of bleeding and EGD for treatment of bleeding. Complications: No immediate complications. Procedure: Pre-Anesthesia Assessment: - Prior to the procedure, a History and Physical was performed, and patient medications and allergies were reviewed. The patient is competent. The risks and benefits of the procedure and the sedation options and risks were discussed with the patient. All questions were answered and informed consent was obtained. Patient identification and proposed procedure were verified by the physician in the pre-procedure area. Mental Status Examination: alert and oriented. Airway Examination: normal oropharyngeal airway and neck mobility. Respiratory Examination: clear to auscultation. CV Examination: normal. Prophylactic Antibiotics: The patient does not require prophylactic antibiotics. Prior Anticoagulants: The patient has taken no anticoagulant or antiplatelet agents except for NSAID medication. ASA Grade Assessment: III - A patient with severe systemic disease. After reviewing the risks and benefits, the patient was deemed in satisfactory condition to undergo the procedure. The anesthesia plan was to use monitored anesthesia care (MAC). Immediately prior to administration of medications, the patient was re-assessed for adequacy to receive sedatives. The heart rate, respiratory rate, oxygen saturations, blood pressure, adequacy of pulmonary ventilation, and response to care were monitored throughout the procedure. The physical status of the patient was re-assessed after the procedure. After obtaining informed consent, the endoscope was passed under direct vision. Throughout the procedure, the patient's blood pressure, pulse, and oxygen saturations were monitored continuously. The Endoscope was introduced through the mouth, and advanced to the fourth part of the duodenum. Small bowel enteroscopy was deemed necessary. The upper GI endoscopy was accomplished without difficulty. The patient tolerated the procedure well. Scope In: 6:40:31 PM Scope Out: 6:47:22 PM Total Procedure Duration Time 0 hours 6 minutes 51 seconds Findings: Grade II varices were found in the middle third of the esophagus and in the lower third of the esophagus. They were 14 mm in largest diameter. Moderate portal hypertensive gastropathy was found in the entire examined stomach. Four 5 mm angiodysplastic lesions with bleeding were found in the second portion of the duodenum and in the fourth portion of the duodenum. Coagulation for hemostasis using heater probe was successful. Estimated blood loss was minimal. Two 5 mm angiodysplastic lesions with typical arborization were found in the jejunum. Coagulation for bleeding prevention using heater probe was successful. Estimated blood loss was minimal. Impression: - Grade II esophageal varices. - Portal hypertensive gastropathy. - Four bleeding angiodysplastic lesions in the duodenum. Treated with a heater probe. - Two angiodysplastic lesions in the jejunum. Treated with a heater probe. - No specimens collected. Recommendation: - Return [facility] to [facility] for [facility] care. - Full liquid diet today. - Continue present medications. - Nadolol 10 mg twice daily for variceal prophylaxis - Capsule endoscopy Procedure Code(s): --- Professional --- 22898, Small intestinal endoscopy, enteroscopy beyond second portion of duodenum, not including ileum; with control of bleeding (eg, injection, bipolar cautery, unipolar cautery, laser, heater probe, stapler, plasma spanish speaking babysitter) CPT copyright 2021 [employer]. All rights reserved. The codes documented in this report are preliminary and upon orthopedic designer review may be revised to meet current compliance requirements. Franicsco Zaman DO 12/05/2024 6:55:54 PM This report has been signed electronically. Number of Addenda: 0 Note Initiated On: 12/05/2024 6:26 PM
--- NOTE | 2024-12-05 18:56 | PCM.POST.ANE ---
Anesthesia: Postop Eval I Current Vital Signs Temperature: 98.5 F Pulse Rate: 89 Blood Pressure: 122/63 Respiratory Rate: 16 Pulse Ox: 94 Oxygen Delivery Method: Room Air Assessment Airway patent: Yes Spontaneous unlabored respirations: Yes Mental status: Awake and Calm nausea: Yes Vomiting: No Anesthesia Complication: No Fluid Hydration Crystalloid volume administer (ml): 10 Total IV fluid infused: 10 Progress Note Anesthesia document: Postop Eval 1 completed: Yes
--- NOTE | 2024-12-05 20:14 | PCM.POSTANE2 ---
Anesthesia Postop Eval I Sum Postop Eval Completion status Anesthesia document: Postop Eval 1 completed: Yes Anesthesia Postop Eval I Summary Anesthesia Postop Eval I Summary: Anesthesia Postop Eval I: Assessment Summary Airway patent Yes 12/05/24 18:59 Spontaneous unlabored Yes 12/05/24 18:59 respirations Mental status Awake,Calm 12/05/24 18:59 nausea Yes 12/05/24 18:59 Vomiting No 12/05/24 18:59 Anesthesia Postop Eval I: Fluid Summary Crystalloid volume administer 10 12/05/24 18:59 (ml) Colloids volume administered ( ml) Blood Product volume administered (ml) Total IV fluid infused 10 12/05/24 18:59 Anesthesia Postop Eval I: Summary Notes Anesthesia Complication No 12/05/24 18:59 Anesthesia Complication Comment: Post-operative progress note Anesthesia: Postop Eval II Evaluation Mental status: Awake and Calm Pain Level: 0 nausea: No Vomiting: No Progress Note Post-operative progress note: Nausea improved with breathing from a [place]. Complications Anesthesia Complication: No
[2024-12-05] MEDS: 0.9% Saline Lock 10 ML Syringe IV (21:24)
[2024-12-05] MEDS: Atorvastatin Calcium 10 MG Tablet 5 MG PO (21:24)
[2024-12-05] MEDS: Methocarbamol 750 MG Tablet 1500 MG PO (21:24)
[2024-12-05] MEDS: Nadolol 20 MG Tablet 10 MG PO (21:27)
[2024-12-06 03:30] VITALS: BP 103/57; PULSE 70; RESP 18; TEMP 36.6; O2SAT 96
[2024-12-06 06:00] LABS: Absolute Lymphocyte Count 1.19 X10^3/uL (0.83-4.51); Basophil# 0.04 X10^3/uL; Eosinophil# 0.17 X10^3/uL; Eosinophils% 4.3 % (0-5); Hemoglobin 8.3 g/dL (12.0-15.0); Lymphocyte # 1.19 X10^3/ul (0.83-4.51); Lymphocyte % 30.3 % (19-41); Mean Corp Hgb Conc 29.6 g/dL (32-36); Mean Corpuscular Hgb 21.8 pg (27.0-32.0); Mean Corpuscular Volume 73.7 fL (81-99); Mean Platelet Vol. 10.7 fl (6.2-12.0); Monocyte# 0.55 X10^3/uL; NRBC Flagged by Analyzer 0 % (0-5); Neutrophil # 1.97 X10^3/uL (2.7-7.7); Neutrophil % 50.1 % (47-70); POSITIVE MORPHOLOGY YES; Platelet Count 115 K/mm3 (150-450); RBC Distribution Width CV 21.5 % (11.6-14.6); RBC Distribution Width SD 56.1 fl (35.1-43.9); White Blood Count 3.9 K/mm3 (4.4-11.0)
[2024-12-06 06:15] LABS: Differential Indicated SCAN CRITERIA MET
[2024-12-06 06:49] LABS: Anion Gap 9 (5-15); BUN 7 mg/dL (4-19); BUN/Creat Ratio 11.4 RATIO (10-20); Calcium,Total 8.5 mg/dL (7.6-11.0); Carbon Dioxide 20.3 mmol/L (21.0-32.0); Chloride 109 mmol/L (98-108); Creatinine, Serum 0.63 mg/dL (0.70-1.20); EST Glomerular Filtration Rate 96 (>60); Glucose 95 mg/dL (70-99); Potassium 4.1 mmol/L (3.3-5.1); Sodium Level 139 mmol/L (133-145)
[2024-12-06 07:34] VITALS: O2SAT 95
[2024-12-06 07:40] LABS: Anisocytosis 2+; Ovalocyte 1+; Platelet Estimate SLT DEC (ADEQ); Polychromasia 1+
[2024-12-06 09:00] VITALS: BP 104/71; PULSE 69; RESP 14; TEMP 36.8; O2SAT 96
[2024-12-06] MEDS: Pantoprazole Sodium 40 MG in 0.9% Normal Saline (100mL MB+) 100 ML 330 MG IV (09:02)
[2024-12-06] MEDS: Nadolol 20 MG Tablet 10 MG PO (09:02)
--- NOTE | 2024-12-06 09:29 | DS.PCM_ITS ---
Providers Date of Admission: 12/04/24 Date of Discharge: 12/06/24 Primary Care Physician: JU Mishra Consultations 12/04/24 17:06 Consult: Gastroenterology Routine Consulting Provider: Burke Gastroenteraleksandr Reason for Consult: GI bleed EMERGENT Consult: No MD Notified: Yes Date Notified: 12/04/24 Time Notified: 13:11 Method of Notification: ED Physician Initiated Reason For Visit: ANEMIA Diagnosis Discharge Diagnosis (1) Microcytic anemia: Status: Acute Code(s): D50.9 - Iron deficiency anemia, unspecified Plan Patient is a 69-year-old female presenting with severe anemia. Patient was also found to have marked microcytosis with hemoglobin 5.7 and MCV of 68. Stool guaiac came back positive admitted to monitored bed for subsequent management 1. Severe anemia ? Secondary to suspected chronic blood loss anemia per patient she has had extensive workup at this [facility] in [place]. Requested for old records. Patient stool guaiac came back positive subsequently started on Protonix. Patient is on clopidogrel for CAD with previous PCI held. An order was given for patient to be transfused with 2 unit PRBC subsequent monitoring with serial H&H ordered ? 12/05/2024; patient was transfused with 2 unit PRBC hemoglobin up to 8.0 patient scheduled to undergo endoscopic evaluation by GI. Patient underwent EGD on 12/05/[address] Arnett findings and recommendations as below Impressions : - Grade II esophageal varices. - Portal hypertensive gastropathy. - Four bleeding angiodysplastic lesions in the duodenum. Treated with a heater probe. - Two angiodysplastic lesions in the jejunum. Treated with a heater probe. - No specimens collected. Recommendations : - Return [facility] to [facility] for [facility] care. - Full liquid diet today. - Continue present medications. - Nadolol 10 mg twice daily for variceal prophylaxis - Capsule endoscopy 2. Coronary artery disease ? With previous PCI ; Patient is on clopidogrel as well as simvastatin. Clopidogrel held given patient anemia 3. GERD ? Patient is on PPI 4. Diabetes mellitus type II -patient's oral hypoglycemics held. Placed on long acting insulin, Accu-Cheks a.c. and at bedtime and covered with sliding scale insulin 5. Nonalcoholic fatty liver disease ? Patient currently being followed by Dr. Zaman with GI as outpatient 6. Class III obesity with BMI of 46.8 ? Complicating care weight loss advised 7. Dyslipidemia ?Patient is on statin therapy, continued at home dose 8. DVT prophylaxis ? Chemoprophylaxis contraindicated given patient severe anemia Time spent in the patient's overall evaluation,decision-making process, review of diagnostic data, adjustment of management, discussion with other providers, nursing nursing and ancillary staff involved in patient's care documentation, 50-minute Medications at Discharge Home Medications cholecalciferol (vitamin D3) 325 mcg (13,000 unit) capsule 50,000 unit PO QODAY 12/04/24 clopidogrel 75 mg tablet (Plavix) 75 mg PO DAILY 12/04/24 methocarbamol 750 mg tablet 1,500 mg PO QHS 12/04/24 nitroglycerin 0.4 mg sublingual tablet 0.4 mg sublingual Q5-15M PRN chest pain 12/04/24 pantoprazole 20 mg tablet,delayed release 20 mg PO QHS 12/04/24 simvastatin 10 mg tablet 10 mg PO QHS 12/04/24 nadolol 20 mg tablet 10 mg (1/2 x 20 mg) PO BID 90 days #90 tabs 12/06/24 Physical Exam Narrative GENERAL: cooperative HEENT: Atraumatic; normocephalic EYES; Anicteric, Normal Conjunctiva NECK; supple, normal thyroid, RESPIRATORY: Diminished to auscultation CARDIOVASCULAR: Regular S1 S2, GI: soft, normoactive bowel sounds, : No Renal angle tenderness; EXTREMITIES: No edema, no clubbing, MUSCULOSKELETAL: no muscle wasting NEURO: Awake; no lateralizing signs. SKIN: No Rash PSYCH; Flat affect Weight / BMI Weight Weight: 115.9 kg Body Mass Index (BMI) 46.7 ABG / Lab / Microbiology Data 12/06/24 05:36 12/06/24 05:36 Laboratory: Laboratory Results - last 24 hr 12/05/24 13:52: Troponin T High Sens 8 12/05/24 15:38: Troponin T Hi Sens 2 Hr 9 12/06/24 05:36: WBC 3.9 L, RBC 3.80 L, Hgb 8.3 L, Hct 28.0 L, MCV 73.7 L, MCH 21.8 L, MCHC 29.6 L, RDW Std Deviation 56.1 H, RDW Coeff of Rafa 21.5 H, Plt Count 115 L, MPV 10.7, Immature Gran % (Auto) 0.300, Neut % (Auto) 50.1, Lymph % (Auto) 30.3, [place] % (Auto) 14.0 H, Eos % (Auto) 4.3, Baso % (Auto) 1.0, Absolute Neuts (auto) 2.0, Absolute Lymphs (auto) 1.19, Nucleated RBC % 0, Platelet Estimate SLT DEC, Polychromasia 1+, Anisocytosis 2+, Ovalocytes 1+, Sodium 139, Potassium 4.1, Chloride 109 H, Carbon Dioxide 20.3 L, Anion Gap 9, BUN 7, C reatinine 0.63 L, Estim Creat Clear Calc 81.20, Est GFR (MDRD) Non-Af 96, BUN/Creatinine Ratio 11.4, Glucose 95, Calcium 8.5 Microbiology: Microbiology 12/04/24 10:19 Stool Stool Occult Blood (ZEENAT) - Final Occult Blood Positive D/C Instructions Discharge Diet: 1800 Calorie Control Diet Discharge Activity: Return to Normal Activity Call your doctor if you observe: Fever of 101 or Higher, Shortness of breath, Fainting spells and Chest pain DC O2, CPAP, BIPAP Needs PSN CPAP & BiPAP: BiPAP & CPAP Settings per PSN Mode CPAP 12/06/24 03:43 Bipap Delivery Device Nasal Pillows 12/06/24 03:43 BiPAP Expiratory Pressure 11 12/06/24 03:43 Home O2 Discharge instructions: No Meaningful Use Info Meaningful Use Meaningful Use Diagnoses (Choose all that apply): None applicable Ischemic Stroke Statin Dosing Therapy Reference: STATIN DOSE THERAPY REFERENCE: * Patients > 75 years receive moderate or high dose statin therapy. * Patients 75 years or YOUNGER should receive HIGH intensity statin dose unless contraindicated. You will be required to document reason for non-treatment if statin daily dose does not meet guidelines. HIGH DOSE STATIN THERAPY DAILY Atorvastatin > than or = to 40 mg Rosuvastatin > than or = to 20 mg Amlodipine + Atorvastatin > than or = to 2.5/40 mg Ezetimibe + Simvastatin 10/80 mg Simvastatin 80mg Discharge Plan Admission Admit Date/Time: 12/04/24 13:02 Attending Provider: Hamzah Aguirre Primary Care Provider: Casie Nayak Discharge Orders/Prescriptions Prescriptions: New nadolol 20 mg Tablet 10 mg PO BID 90 Days Qty: 90 0RF Continued nitroglycerin 0.4 mg tablet, sublingual 0.4 mg sublingual Q5-15M PRN (Reason: chest pain) Rx Instructions: do not exceed 3 doses per episode clopidogrel [Plavix] 75 mg tablet 75 mg PO DAILY pantoprazole 20 mg tablet,delayed release (DR/EC) 20 mg PO QHS Patient Comments: PT UNSURE IF SHE TAKES 20MG OR 40MG. SHE HAD 40MG RECENTLY FILLED, BUT SAID SHE DID NOT PICK ANYTHING UP. simvastatin 10 mg tablet 10 mg PO QHS methocarbamol 750 mg tablet 1,500 mg PO QHS cholecalciferol (vitamin D3) 325 mcg (13,000 unit) capsule 50,000 unit PO QODAY Patient Comments: PT UNSURE OF STRENGTH Referrals / Follow Up: Francisco Zaman DO [Med Staff - Active Staff] - Within 2 Weeks (To be scheduled for capsule endoscopy) Casie Nayak [employer] SALES EXECUTIVE[employer] [Primary Care Provider] - Within 2 Weeks Disposition Disposition (needs filled in before D/C Order can be placed): Home, Self Care Charges/Coding Visit Charges Inpatient E&M: 65873 Disch Hosp >30min
--- NOTE | 2024-12-06 10:20 | CASEMGMT ---
Social Work SW met with pt and assisted in completing Living will and Health care POA naming her Rubio Cabrera as primary HCPOA. Original documents given to pt and copies placed on pt chart. TASH Warren
--- NOTE | 2024-12-06 10:38 | CASEMGMT ---
RN LORRI NOTE: Discharge order is in. RN CM to room. Pt resting in bed. Introduced self and role. Pt made aware Rx has been sent to [facility] retail pharmacy and would like [id number]. Call placed to the pharmacy and they were notified. She voices much appreciation for care she has received @ [facility]. Pt denies having any other discharge needs or concerns. La CHAN RN CM
--- NOTE | 2024-12-06 19:38 | PN_ITS ---
Progress Note Patient underwent an upper endoscopy. She denied having any symptoms at that time. Physical Exam Narrative GENERAL: cooperative HEENT: Atraumatic; normocephalic EYES; Anicteric, Normal Conjunctiva NECK; supple, normal thyroid, RESPIRATORY: Diminished to auscultation CARDIOVASCULAR: Regular S1 S2, GI: soft, normoactive bowel sounds, : No Renal angle tenderness; EXTREMITIES: No edema, no clubbing, MUSCULOSKELETAL: no muscle wasting NEURO: Awake; no lateralizing signs. SKIN: No Rash PSYCH; Flat affect Assessment & Plan Assessment/Plan (1) Microcytic anemia: PLAN: Plan Patient is a 69-year-old female presenting with severe anemia. Patient was also found to have marked microcytosis with hemoglobin 5.7 and MCV of 68. Stool guaiac came back positive admitted to monitored bed for subsequent management 1. Severe anemia ? Secondary to suspected chronic blood loss anemia per patient she has had extensive workup at this [facility] in [place]. Requested for old records. Patient stool guaiac came back positive subsequently started on Protonix. Patient is on clopidogrel for CAD with previous PCI held. An order was given for patient to be transfused with 2 unit PRBC subsequent monitoring with serial H&H ordered ? 12/05/2024; patient was transfused with 2 unit PRBC hemoglobin up to 8.0 patient scheduled to undergo endoscopic evaluation by GI. 2. Coronary artery disease ? With previous PCI ; Patient is on clopidogrel as well as simvastatin. Clopidogrel held given patient anemia 3. GERD ? Patient is on PPI 4. Diabetes mellitus type II -patient's oral hypoglycemics held. Placed on long acting insulin, Accu-Cheks a.c. and at bedtime and covered with sliding scale insulin 5. Nonalcoholic fatty liver disease ? Patient currently being followed by Dr. Zaman with GI as outpatient 6. Class III obesity with BMI of 46.8 ? Complicating care weight loss advised 7. Dyslipidemia ?Patient is on statin therapy, continued at home dose 8. DVT prophylaxis ? Chemoprophylaxis contraindicated given patient severe anemia Time spent in the patient's overall evaluation,decision-making process, review of diagnostic data, adjustment of management, discussion with other providers, nursing nursing and ancillary staff involved in patient's care documentation, 50-minute Visit Charges Inpatient E&M: [id number] [place] [id number]
== END 2024-12-06 11:23 | disposition home or self-care (01) | DRG 378 ==
LOC: ED 14:09 → PCU 16:34
PROVIDERS: Anesthesiology; Internal Medicine Gastroenterology; Admitting Provider Internal Medicine; Emergency Provider Emergency Medicine; PCP Nurse Practitioner Family; Visit Provider Internal Medicine
PROC: 0DJ08ZZ Inspection of Upper Intestinal Tract, Via Natural or Artificial Opening Endoscopic (ICD-10-PCS; CPT 43235; principal; 2024-12-05 17:25)
DX: K31.811 Angiodysplasia of stomach and duodenum with bleeding (principal); R18.8 Other ascites; D68.32 Hemorrhagic disorder due to extrinsic circulating anticoagulants; Z68.42 Body mass index [BMI] 45.0-49.9, adult; K76.6 Portal hypertension; D69.6 Thrombocytopenia, unspecified; E11.9 Type 2 diabetes mellitus without complications; D50.0 Iron deficiency anemia secondary to blood loss (chronic); I10 Essential (primary) hypertension; I85.01 Esophageal varices with bleeding; K57.30 Diverticulosis of large intestine without perforation or abscess without bleeding; E78.5 Hyperlipidemia, unspecified; K21.9 Gastro-esophageal reflux disease without esophagitis; I25.10 Atherosclerotic heart disease of native coronary artery without angina pectoris; G47.33 Obstructive sleep apnea (adult) (pediatric); K75.81 Nonalcoholic steatohepatitis (NASH); K31.89 Other diseases of stomach and duodenum; K74.60 Unspecified cirrhosis of liver; E66.813 Obesity, class 3; K63.89 Other specified diseases of intestine; Z90.710 Acquired absence of both cervix and uterus; Z79.02 Long term (current) use of antithrombotics/antiplatelets; R16.1 Splenomegaly, not elsewhere classified; Z95.5 Presence of coronary angioplasty implant and graft; Z79.899 Other long term (current) drug therapy; Z88.8 Allergy status to other drugs, medicaments and biological substances; Z90.49 Acquired absence of other specified parts of digestive tract; Z96.659 Presence of unspecified artificial knee joint; Z79.84 Long term (current) use of oral hypoglycemic drugs
CPT/HCPCS: 36415; 74174; 80048; 80053; 82105; 82140; 82274; 83690; 83735; 84100; 84484; 85025; 85610; 85652; 85730; 86140; 86850; 86900; 86901; 93005; 94660; 97802; 99285; C1889; P9016; Q9967; A4216; J2405

== ENCOUNTER → 2024-12-04 | Outpatient (CLI) | payer MEDICARE, SELFPAY ==
[2024-12-04 09:07] LABS: Erythrocyte Sedimentation Rate 3 mm/hr (0-30)
[2024-12-04 09:10] LABS: Absolute Lymphocyte Count 0.93 X10^3/uL (0.83-4.51); Absolute Neutrophil Count 1.6 X10^3/uL (2.0-7.7); Basophil# 0.03 X10^3/uL; Eosinophil# 0.17 X10^3/uL; Eosinophils% 5.5 % (0-5); Hematocrit 21.3 % (37-47); Lymphocyte # 0.93 X10^3/ul (0.83-4.51); Lymphocyte % 30.3 % (19-41); Mean Corp Hgb Conc 27.7 g/dL (32-36); Mean Corpuscular Hgb 18.9 pg (27.0-32.0); Mean Corpuscular Volume 68.3 fL (81-99); Mean Platelet Vol. 10.2 fl (6.2-12.0); Monocyte# 0.37 X10^3/uL; Monocyte% 12.1 % (0-10); NRBC Flagged by Analyzer 0 % (0-5); Neutrophil # 1.56 X10^3/uL (2.7-7.7); Neutrophil % 50.8 % (47-70); POSITIVE COUNT YES; Platelet Count 127 K/mm3 (150-450); RBC Distribution Width CV 18.3 % (11.6-14.6); RBC Distribution Width SD 44.7 fl (35.1-43.9); Red Blood Count 3.12 M/mm3 (4.2-5.4); White Blood Count 3.1 K/mm3 (4.4-11.0)
[2024-12-04 09:19] LABS: Hemoglobin 5.9 g/dL (12.0-15.0)
[2024-12-04 09:20] LABS: Differential Indicated SCAN CRITERIA MET
[2024-12-04 09:25] LABS: Ammonia 40.7 umol/L (11-51)
[2024-12-04 09:26] LABS: ALB/GLOB Ratio 1.2 RATIO (0.9-2.4); AST(SGOT) 38 U/L (<=31); Alanine Aminotransfer ALT/SGPT 17 U/L (<=34); Albumin, Serum 3.4 g/dL (3.4-4.8); Alkaline Phosphatase 144 U/L (35-104); Anion Gap 9 (5-15); BUN 11 mg/dL (4-19); Calcium,Total 8.6 mg/dL (7.6-11.0); Carbon Dioxide 21.4 mmol/L (21.0-32.0); Chloride 108 mmol/L (98-108); Creatinine, Serum 0.62 mg/dL (0.70-1.20); EST Glomerular Filtration Rate 97 (>60); Globulin 2.9 g/dL (2.2-4.2); Glucose 149 mg/dL (70-99); Potassium 3.3 mmol/L (3.3-5.1); Protein, Total 6.3 g/dL (5.9-8.4); Sodium Level 139 mmol/L (133-145); Total Bilirubin 0.79 mg/dL (0.00-1.30)
[2024-12-04 09:38] LABS: International Normalized Ratio 1.5; Prothrombin Time (Protime)PT. 18.7 SECONDS (11.7-14.9)
[2024-12-04 09:52] LABS: Anisocytosis 1+; CRP < 3.00 mg/L (0.0-3.0); Platelet Estimate SLT DEC (ADEQ)
[2024-12-04 09:53] LABS: Hypochromasia 1+; Pathologist Review May foll; Target Cells 1+
[2024-12-05 04:07] LABS: AFP, Tumor Marker 9.4 ng/mL (0.0-9.2)
== END | disposition home or self-care (01) ==
LOC: LAB 08:29
PROVIDERS: PCP Nurse Practitioner Family; Referring Provider Student in an Organized Health Care Education/Training Program; Visit Provider Student in an Organized Health Care Education/Training Program
DX: K74.60 Unspecified cirrhosis of liver (principal)
CPT/HCPCS: 36415; 80053; 82105; 82140; 85025; 85610; 85652; 86140

== ENCOUNTER → 2024-12-11 | Outpatient (CLI) | payer MEDICARE, SELFPAY ==
[2024-12-11 11:25] LABS: Absolute Lymphocyte Count 1.03 X10^3/uL (0.83-4.51); Basophil# 0.05 X10^3/uL; Basophil% 1.3 % (0-1); Eosinophil# 0.16 X10^3/uL; Eosinophils% 4.3 % (0-5); Hemoglobin 8.4 g/dL (12.0-15.0); Lymphocyte # 1.03 X10^3/ul (0.83-4.51); Lymphocyte % 27.5 % (19-41); Mean Corpuscular Volume 73.5 fL (81-99); Mean Platelet Vol. 10.7 fl (6.2-12.0); Monocyte# 0.47 X10^3/uL; Monocyte% 12.6 % (0-10); NRBC Flagged by Analyzer 0 % (0-5); Neutrophil # 2.02 X10^3/uL (2.7-7.7); POSITIVE MORPHOLOGY YES; Platelet Count 109 K/mm3 (150-450); RBC Distribution Width CV 23.3 % (11.6-14.6); RBC Distribution Width SD 60.7 fl (35.1-43.9); Red Blood Count 3.81 M/mm3 (4.2-5.4); White Blood Count 3.7 K/mm3 (4.4-11.0)
[2024-12-11 11:27] LABS: Differential Indicated SCAN CRITERIA MET
[2024-12-11 11:36] LABS: International Normalized Ratio 1.5; Prothrombin Time (Protime)PT. 17.9 SECONDS (11.7-14.9)
[2024-12-11 11:53] LABS: Differential Comment S; Hypochromasia 1+
[2024-12-11 12:14] LABS: Hemoglobin A1c 5.1 % (<=5.6)
[2024-12-11 12:37] LABS: ALB/GLOB Ratio 1.2 RATIO (0.9-2.4); AST(SGOT) 45 U/L (<=31); Alanine Aminotransfer ALT/SGPT 19 U/L (<=34); Albumin, Serum 3.3 g/dL (3.4-4.8); Alkaline Phosphatase 139 U/L (35-104); Anion Gap 10 (5-15); BUN 8 mg/dL (4-19); BUN/Creat Ratio 14.6 RATIO (10-20); Calcium,Total 8.5 mg/dL (7.6-11.0); Chloride 108 mmol/L (98-108); Creatinine, Serum 0.58 mg/dL (0.70-1.20); EST Glomerular Filtration Rate 98 (>60); Globulin 2.8 g/dL (2.2-4.2); Glucose 105 mg/dL (70-99); Protein, Total 6.1 g/dL (5.9-8.4); Sodium Level 138 mmol/L (133-145); Total Bilirubin 0.83 mg/dL (0.00-1.30)
[2024-12-12 13:08] LABS: Anti-Centromere B Ab <0.2 AI (0.0-0.9); Anti-Chromatin <0.2 AI (0.0-0.9); Anti-Jo <0.2 AI (0.0-0.9); Anti-Mitochondrial AB <20.0 Units (0.0-20.0); Anti-Scleroderma-70 AB <0.2 AI (0.0-0.9); Anti-dsDNA Ab <1 IU/mL (0-9); RNP Ab 0.3 AI (0.0-0.9); SJOGREN'S Anti-SS-A test < 0.2 AI (0.0-0.9); SJOGREN'S Anti-SS-B test < 0.2 AI (0.0-0.9); Smith Ab <0.2 AI (0.0-0.9)
[2024-12-13 21:07] LABS: Angiotensin Convert Enzyme 102 U/L (14-82); Anti-Smooth Muscle ABS 12 Units (0-19); Copper, Serum or Plasma 114 ug/dL (80-158); Cytoplasmic Ab (C-ANCA) <1:20 titer (Neg:<1:20); Perinuclear Ab (P-ANCA) <1:20 titer (Neg:<1:20)
== END | disposition home or self-care (01) ==
LOC: LAB 10:57
PROVIDERS: Student in an Organized Health Care Education/Training Program; PCP Nurse Practitioner Family; Referring Provider Nurse Practitioner Acute Care; Visit Provider Nurse Practitioner Acute Care
DX: K74.60 Unspecified cirrhosis of liver (principal); E11.9 Type 2 diabetes mellitus without complications; D64.9 Anemia, unspecified; K92.2 Gastrointestinal hemorrhage, unspecified
CPT/HCPCS: 36415; 80053; 82164; 82390; 82525; 83036; 83516; 85025; 85610; 86037; 86225; 86235

== ENCOUNTER → 2024-12-20 | Outpatient (CLI) | payer MEDICARE, SELFPAY ==
--- NOTE | 2024-12-20 10:36 | US_ITS ---
PROCEDURE: ABDOMEN LIMITED 12/20/2024 REASON FOR EXAM: RUQ COMPARISON: None FINDINGS: Liver: Diffusely echogenic suggesting fatty infiltration. Gallbladder: No stones, sludge, wall thickening or tenderness. Common bile duct: Normal measuring 3 mm.. Pancreas: Normal Other: Visualized portions of the right kidney are unremarkable. No right upper quadrant ascites. US/Abdomen Limited IMPRESSION: FATTY LIVER. NO CHOLELITHIASIS OR BILIARY DILATION. Reading Location: [id number]
== END | disposition home or self-care (01) ==
LOC: US 10:33
PROVIDERS: PCP Nurse Practitioner Family; Referring Provider Student in an Organized Health Care Education/Training Program; Visit Provider Student in an Organized Health Care Education/Training Program
DX: R10.11 Right upper quadrant pain (principal); K74.60 Unspecified cirrhosis of liver
CPT/HCPCS: 76705

== ENCOUNTER → 2025-01-28 | Outpatient (CLI) | payer MEDICARE, SELFPAY | END | disposition home or self-care (01) | PROVIDERS: PCP Nurse Practitioner Family; Referring Provider Internal Medicine Critical Care Medicine; Visit Provider Internal Medicine Critical Care Medicine | DX: G47.33 Obstructive sleep apnea (adult) (pediatric) (principal); G47.10 Hypersomnia, unspecified | CPT/HCPCS: 95806 ==

== ENCOUNTER → 2025-02-24 | Outpatient (CLI) | payer MEDICARE, SELFPAY ==
--- NOTE | 2025-02-24 07:47 | ECHOD_ITS ---
Reason For Study Reason For Study: MURMUR Procedure This was a 2D Doppler, Color Flow transthoracic echocardiogram. Exam performed in department. Left Ventricle Normal LV size. The left ventricular ejection fraction is 65 %. Right Ventricle Normal RV size. Normal systolic function. Atria Normal left atrium. Normal right atrium. Mitral Valve Normal mitral valve. Tricuspid Valve Normal tricuspid valve. Mild to moderate (1-2+) tricuspid valve insufficiency. Pulmonary artery systolic pressure is 36 mmHg. Aortic Valve Normal aortic valve. Peak aortic valve gradient 23 mmHg. Mean aortic valve gradient 14 mmHg. Great Vessels Normal aortic root. The pulmonary artery is normal size. Inferior vena cava collapse with respiration. Pericardium/Pleural No pericardial effusion. MMode/2D Measurements & Calculations LVIDd: 5.0 cm IVSd: 0.97 cm LVOT diam: 1.9 cm LVIDs: 3.2 cm LVPWd: 0.88 cm LVOT area: 3.0 cm2 RVDd: 4.6 cm FS: 35.1 % asc Aorta Diam: 3.3 cm LAV(MOD-bp): 69.1 ml LVAd ap4: 28.1 cm2 LAV(MOD-bp) Indexed: 33.0 ml/m2 LVLd ap4: 7.4 cm LAV(MOD-sp2): 67.0 ml EDV(MOD-sp4): 84.7 ml LAV(MOD-sp4): 66.2 ml EDV(sp4-el): 90.2 ml LVAs ap4: 15.6 cm2 LVLs ap4: 6.4 cm ESV(MOD-sp4): 31.7 ml ESV(sp4-el): 32.2 ml EF(MOD-sp4): 62.5 % EF(sp4-el): 64.3 % SV(MOD-sp4): 53.0 ml SV(MOD-sp2): 57.7 ml LVAd ap2: 27.8 cm2 LVLd ap2: 7.5 cm SI(MOD-sp4): 25.3 ml/m2 SI(MOD-sp2): 27.6 ml/m2 EDV(MOD-sp2): 81.6 ml EDV(sp2-el): 87.0 ml LVAs ap2: 13.7 cm2 LVLs ap2: 6.3 cm ESV(MOD-sp2): 23.8 ml ESV(sp2-el): 25.1 ml EF(MOD-sp2): 70.8 % SV(sp4-el): 58.0 ml Ao sinus diam: 2.[address] Junction: 2.2 cm LA A4 area: 22.1 cm2 LA dimension(2D): 3.8 cm RA A4 area: 8.7 cm2 TAPSE: 2.0 cm Time Measurements MV dec time: 0.15 sec Doppler Measurements & Calculations MV E max gal: 103.1 cm/sec Lat Peak E' Gal: 16.4 cm/sec Med Peak E' Gal: 10.3 cm/sec MV A max gal: 71.1 cm/sec E/E' lat: 6.3 E/E' med: 10.0 MV E/A: 1.4 Ao V2 max: 240.5 cm/sec LV V1 max: 136.6 cm/sec MV dec slope: 681.5 cm/sec2 Ao max P.2 mmHg LV V1 max P.5 mmHg Ao V2 mean: 177.9 cm/sec LV V1 mean P.6 mmHg Ao mean P.7 mmHg LV V1 mean: 104.2 cm/sec Ao V2 VTI: 58.8 cm LV V1 VTI: 31.2 cm AV (velocity ratio): 0.53 STAN[place]ORD(I,D): 1.6 cm2 ST[place]ORD(V,D): 1.7 cm2 SV(LVOT): 93.0 ml PA V2 max: 102.8 cm/sec TR max gal: 284.5 cm/sec TR max P.4 mmHg ECHO/Echo Complete Interpretation Summary Normal LV size. The left ventricular ejection fraction is 65 %. Peak aortic valve gradient 23 mmHg. Mean aortic valve gradient 14 mmHg. Normal aortic valve. Pulmonary artery systolic pressure is 36 mmHg. Ordering Physician: Harpal Cruz Referring Physician: Harpal Cruz MD Performed By: Tracy Vásquez RDCS
== END | disposition home or self-care (01) ==
LOC: CVS 07:44
PROVIDERS: PCP Nurse Practitioner Family; Referring Provider Internal Medicine Cardiovascular Disease; Visit Provider Internal Medicine Cardiovascular Disease
DX: I25.10 Atherosclerotic heart disease of native coronary artery without angina pectoris (principal); R01.1 Cardiac murmur, unspecified
CPT/HCPCS: 93306

== ENCOUNTER → 2025-02-26 | Outpatient (CLI) | payer MEDICARE, SELFPAY ==
--- OUTSIDE RECORDS SUMMARY | 2025-02-26 07:16 | XMS RPT_ITS | CCD ---
Author Organization [facility] Care Team Providers Care Inseminator Name Role Phone Unavailable Primary Care Provider Dr. Guanaco Smart DO Attending Provider Dr. Guanaco Martinez DO Emergency Provider Care Physician, No Primary Primary Care Provider Unavailable Erma PATIENT RELATIONS SPECIALIST-C, Valdo Primary Care Provider Erma PATIENT RELATIONS SPECIALIST-C, Valdo Referring Provider Jolanta Caldera Attending Provider Jolanta Caldera Referring Provider Dr. Naga Mcleod DO Emergency Provider Carla MAS, Dr. Goodson Admit Provider Unavailable Dr. Hamzah Aguirre MD Attending Provider Unavailantionette Aguirre MD, Dr. Goodson Other Provider Unavailable Dr. Francisco Zaman DO Attending Provider Dr. Harpal Cruz MD Attending Provider Dr. Harpal Cruz MD Referring Provider Dr. Hamzah Aguirre MD Referring Provider Unavailantionette Bonilla PATIENT RELATIONS SPECIALIST-CVanesa Attending Provider Chad PATIENT RELATIONS SPECIALIST-CVanesa Referring Provider Unavailable Primary Care Provider UnavailHUMBERTO Gardner Attending Unavailable VALDO RITCHIE Referring Unavailable Erma PATIENT RELATIONS SPECIALIST, Valdo Primary Care Provider ERMA, VALDO Primary Care Unavailable VENKATA DANIELLE Attending Unavailable VENKATA DANIELLE Referring Unavailable ERMA, VALDO Primary Care Unavailable VENKATA DANIELLE Referring Unavailable ERMA, VALDO Primary Care Unavailable Bruce MAS, Dr. Paul Attending Provider [phone] Dr. Humberto Barrera MD Referring Provider Erma, Valdo Referring Unavailable Erma, Vlado Primary Care Unavailable Anthony, [place] Attending Unavailable Erma, Valdo Referring Unavailable Atanasov, Jolanta Attending Unavailable Erma, Valdo Primary Care Unavailable Ra Austynhsaan Attending Unavailable Erma, Valdo Primary Care Unavailable Kittoe, Hamzah Consulting Unavailable Kittoe, Hamzah Admitting Unavailable Kittoe, Hamzah Referring Unavailable Anthony, [place] Referring Unavailable Anthony, [place] Attending Unavailable Erma, Valdo Primary Care Unavailable Kittoe, Hamzah Attending Unavailable Erma, Valdo Primary Care Unavailable Kittoe, Hamzah Attending Unavailable Erma, Valdo Primary Care Unavailable Kittoe, Hamzah Admitting Unavailable Kittoe, Hamzah Attending Unavailable Atanasov, Jolanta Referring Unavailable Atanasov, Jolanta Attending Unavailable Erma, Valdo Primary Care Unavailable Care Physician, No Primary Primary Care Unava ilable Guanaco Martinez Attending Unavailable Erma, Valdo Referring Unavailable Erma, Valdo Attending Unavailable Erma, Valdo Primary Care Unavailable ChadVanesa Consulting Unavailable Erma, Valdo Primary Care Unavailable Anthony, Harpal Referring Unavailable Anthony, [place] Attending Unavailable Erma, Valdo Referring Unavailable Erma, Valdo Attending Unavailable Erma, Valdo Primary Care Unavailable Erma, Valdo Primary Care Unavailable ChadCarolineVanesa Referring Unavailable ChadVansea Attending Unavailable Erma, Valdo Primary Care Unavailable Atanasov, Jolanta Referring Unavailable Atanasov, Jolanta Attending Unavailable Magalang, Dudley Referring Unavailable Magalang, Humberto Attending Unavailable Erma, Valdo Primary Care Unavailable Erma, Valdo Primary Care Unavailable Anthony, [place] Attending Unavailable Erma, Valdo Primary Care Unavailable Erma, Valdo Referring Unavailable Atanasov, Jolanta Attending Unavailable Allergies Allergy Classification Reported Allergen(s) Allergy Type Date of Onset Reaction(s) Facility (6 sources) Cortisone; Translations: [CORTISONE] Drug Allergy 10-06-19 Other: See [facility] (6 sources) Influenza Virus Vaccines; Translations: [INFLUENZA VIRUS VACCINES] Drug Allergy 10-06-19 25 Anaphylaxis [facility] (5 sources) Glucocorticoid Receptor Agonists Propensity to adverse reactions 10-06-19 Other [facility] Comment on above: HTN (5 sources) HYDROcodone Drug Allergy 12-05-19 Angioedema [facility] (5 sources) Influenza Vaccines Allergy to substance 10-06-19 Anaphylaxis [facility] (1 source) Corticosteroids Drug allergy (disorder) 01-09-20 [facility] Repository (1 source) HYDROcodone Drug Allergy 01-09-20 [facility] (1 source) Influenza Virus Vaccines Drug allergy (disorder) 01-09-20 [facility] Medications Current Medications Medication Drug Class(es) Dates Sig (Normalized) Sig (Original) cholecalciferol 0.325 mg oral capsule (11 sources) Vitamin D Start: 01-08-2025 take 1 capsule by mouth every other day Cholecalciferol (Vitamin D3) 325 mcg (13,000 unit) capsule Active 125 ug PO EVERY OTHER DAY January 08, 2025 8:52am Start: 12-04-2024 End: 01-08-2025 take 1 capsule by mouth every other day Cholecalciferol (Vitamin D3) 325 mcg (13,000 unit) capsule Discontinued 71658 U PO EVERY OTHER DAY December 04, 2024 8:18am January 08, 2025 8:52am Start: 12-04-2024 End: 12-04-2024 take 1 capsule by mouth every week Cholecalciferol (Vitamin D3) 325 mcg (13,000 unit) capsule Discontinued 325 ug PO EVERY WEEK December 04, 2024 12:00am December 04, 2024 8:19am clopidogrel 75 mg oral tablet (10 sources) [id number] Platelet Inhibitor Start: 08-28-2024 take 1 tablet by mouth once daily Clopidogrel (Plavix) 75 mg tablet Active 75 mg PO DAILY December 04, 2024 12:00am methocarbamol 750 mg oral tablet (14 sources) Muscle Relaxant Start: 12-04-2024 take 2 tablets by mouth at bedtime Methocarbamol 750 mg tablet Active 1500 mg PO AT BEDTIME December 04, 2024 8:11am Start: 12-04-2024 End: 12-04-2024 take 1 tablet by mouth at bedtime Methocarbamol 750 mg tablet Discontinued 750 mg PO AT BEDTIME December 04, 2024 12:00am December 04, 2024 8:12am nadolol 20 mg oral tablet (3 sources) beta-Adrenergic Lexi Start: 12-06-2024 take 1 tablet by mouth twice daily Nadolol 20 mg Tablet Active 10 mg PO TWICE A DAY 90 90 December 06, 2024 12:00am Nitrofurantoin (5 sources) Nitrofuran Antibacterial NITROFURANTOIN ORAL Take by mouth. Active omega-3s/dha/epa/fi sh oil/D3 (VITAMIN-D + OMEGA-3 ORAL) (4 sources) omega-3s/dha/epa /fi sh oil/D3 (VITAMIN-D + OMEGA-3 ORAL) Take by mouth. Active spironolactone 100 mg oral tablet (6 sources) Aldosterone Antagonist Start: 12-11-2024 take 1 tablet by mouth once daily in the morning Spironolactone 100 mg tablet Active 100 mg PO EVERY MORNING December 11, 2024 12:00am Completed/Discontinued Medications Medication Drug Class(es) Dates Sig (Normalized) Sig (Original) 24 hr metoprolol succinate 25 mg extended release oral tablet (5 sources) beta-Adrenergic Lexi Start: 12-04-2024 End: 12-04-2024 take 1 tablet by mouth once daily Metoprolol Succinate 25 mg tablet extended release 24 hr Discontinued 25 mg PO daily December 04, 2024 12:00am December 04, 2024 11:26am nitroglycerin 0.3 mg sublingual tablet (15 sources) Nitrate Vasodilator Start: 12-04-2024 End: 12-04-2024 take 0.4 mg under the tongue once Nitroglycerin 0.3 mg tablet, sublingual Discontinued 0.4 mg SL ONCE as needed December 04, 2024 8:11am December 04, 2024 11:26am as a single dose; administer 5-10 minutes before situation known to precipitate angina attack Start: 12-04-2024 Nitroglycerin 0.4 mg tablet, sublingual Active 0.4 mg SL every 5 to 15 minutes as needed for chest pain December 04, 2024 12:00am do not exceed 3 doses per episode Start: 12-04-2024 End: 12-04-2024 take 1 tablet under the tongue once Nitroglycerin 0.3 mg tablet, sublingual Discontinued 0.3 mg SL ONCE as needed December 04, 2024 12:00am December 04, 2024 8:12am as a single dose; administer 5-10 minutes before situation known to precipitate angina attack pantoprazole 20 mg delayed release oral tablet (11 sources) Proton Pump Inhibitor Start: 12-04-2024 End: 01-08-2025 take 1 tablet by mouth at bedtime Pantoprazole 20 mg tablet,delayed release (DR/EC) Discontinued 20 mg PO AT BEDTIME December 04, 2024 12:00am January 08, 2025 8:51am Start: 08-28-2024 take 1 tablet by ceferino th once daily Pantoprazole 40 mg tablet,delayed release (DR/EC) Active 40 mg PO daily January 08, 2025 12:00am simvastatin 10 mg oral tablet (11 sources) HMG-CoA Reductase Inhibitor Start: 12-04-2024 End: 01-08-2025 take 1 tablet by mouth at bedtime Simvastatin 10 mg tablet Discontinued 10 mg PO AT BEDTIME December 04, 2024 12:00am January 08, 2025 8:51am Start: 08-13-2024 take 1 tablet by ceferino once daily Simvastatin 20 mg tablet Active 20 mg PO daily January 08, 2025 12:00am Problems Active Problems Problem Classification Problem Date Documented Da te Episodic/Chronic Abdominal pain (1 source) Right upper quadrant pain; Translations: [Right upper quadrant pain] Onset: 5 Episodic Coronary atherosclerosis and other heart disease (13 sources) Coronary arteriosclerosis; Translations: [Atherosclerotic heart disease of [place] coronary artery without angina pectoris] Onset: 5 12-04-2024 Chronic Deficiency and other anemia (12 sources) Anemia; Translations: [Anemia, unspecified] 12-04-2024 Episodic Deficiency and other anemia (10 sources) Microcytic anemia; Translations: [Iron deficiency anemia, unspecified] 12-04-2024 Episodic Deficiency and other anemia (1 source) Anemia, unspecified; Translations: [Anemia, unspecified] Onset: 5 Episodic Deficiency and other anemia (1 source) Iron deficiency anemia, unspecified; Translations: [Iron deficiency anemia, unspecified] Onset: 5 Episodic Diabetes mellitus without complication (6 sources) Type 2 diabetes mellitus; Translations: [Type 2 diabetes mellitus without complications] Onset: 5 10-06-2024 Chronic Esophageal disorders (13 sources) Gastroesophageal reflux disease; Translations: [Gastro-esophageal reflux disease without esophagitis] Onset: 5 12-04-2024 Chronic Essential hypertension (7 sources) Essential hypertension; Translations: [Essential (primary) hypertension] Onset: 5 12-04-2024 Chronic Gastrointestinal hemorrhage (13 sources) Gastrointestinal hemorrhage; Translations: [Gastrointestinal hemorrhage, unspecified] Onset: 5 12-04-2024 Episodic Headache; including migraine (5 sources) Headache; Translations: [Headache] 10-14-2024 Episodic Heart valve disorders (2 sources) Aortic valve stenosis; Translations: [Nonrheumatic aortic (valve) stenosis] 01-08-2025 Chronic Osteoporosis (1 source) Age-related osteoporosis without current pathological fracture; Translations: [Age-related osteoporosis without current pathological fracture] Onset: Chronic Other circulatory disease (5 sources) Disorder of carotid artery; Translations: [Disorder of arteries and arterioles, unspecified] 12-04-2024 Chronic Other circulatory disease (1 source) Disorder of arteries and arterioles, unspecified; Translations: [Disorder of arteries and arterioles, unspecified] Onset: Chronic Other connective tissue disease (4 sources) Pain of left calf; Translations: [Pain in left lower leg] 01-06-2025 Episodic Other connective tissue disease (6 sources) Pain of left heel; Translations: [Pain in left foot] 01-06-2025 Episodic Other connective tissue disease (1 source) Calcaneal spur of left foot; Translations: [Calcaneal spur, left foot] 01-06-2025 Episodic Other connective tissue disease (1 source) Pain in left foot; Translations: [Pain of left heel] Onset: Episodic Other connective tissue disease (1 source) Calcaneal spur, left foot; Translations: [Heel spur, left] Onset: Episodic Other connective tissue disease (1 source) Pain in left lower leg; Translations: [Pain of left calf] Onset: Episodic Other eye disorders (1 source) Pain in eye; Translations: [Ocular pain, left eye] 10-06-2024 Episodic Other eye disorders (1 source) Subconjunctival hemorrhage of left eye; Translations: [Conjunctival hemorrhage, left eye] 10-06-2024 Episodic Other eye disorders (5 sources) Subconjunctival hemorrhage; Translations: [Conjunctival hemorrhage, unspecified eye] 10-14-2024 Episodic Other eye disorders (1 source) Ocular pain, left eye; Translations: [Ocular pain, left eye] Onset: 5 Episodic Other liver diseases (12 sources) Cirrhosis of liver; Translations: [Unspecified cirrhosis of liver] 10-06-2024 Chronic Other liver diseases (1 source) Unspecified cirrhosis of liver; Translations: [Unspecified cirrhosis of liver] Onset: 5 Chronic Other lower respiratory disease (1 source) Shortness of breath; Translations: [Shortness of breath] Onset: 5 Episodic Other nutritional; endocrine; and metabolic disorders (2 sources) Body mass index 40+ - severely obese; Translations: [Morbid (severe) obesity due to excess calories] 12-19-2024 Chronic Other nutritional; endocrine; and metabolic disorders (2 sources) Morbid (severe) obesity due to excess calories; Translations: [Morbid (severe) obesity due to excess calories] Onset: 5 Chronic Other nutritional; endocrine; and metabolic disorders (2 sources) Body mass index (BMI) 40.0-44.9, adult; Translations: [Body mass index (BMI) 40.0-44.9, adult] Onset: 5 Chronic Other screening for suspected conditions (not mental disorders or infectious disease) (1 source) Encounter for screening mammogram for malignant neoplasm of breast; Translations: [Encounter for screening mammogram for malignant neoplasm of breast] Onset: 5 Episodic Residual codes; unclassified (7 sources) Obstructive sleep apnea syndrome; Translations: [Obstructive sleep apnea (adult) (pediatric)] 12-04-2024 Chronic Residual codes; unclassified (3 sources) Obstructive sleep apnea (adult) (pediatric); Translations: [Obstructive sleep apnea (adult) (pediatric)] Onset: 5 Chronic Residual codes; unclassified (5 sources) Edema; Translations: [Edema, unspecified] 12-04-2024 Episodic Unclassified (3 sources) To be scheduled for capsule endoscopy Past or Other Problems Problem Classification Problem Date Documented Da te Episodic/Chronic Other non-traumatic joint disorders (1 source) Pain in right knee; Translations: [Pain in right knee] Onset: 11-15-2024 Episodic Results Test Name Value Interpretation Reference Range Facility Echo Complete 02-24-2025 Echo Complete [facility] [address] [place] [address] Echo Complete 02/24/25 0806 MR#: [id number] Acct: [id number] Name: DIAN JANE Rep #: [id number] : [id number] 70 From: Harpal Cruz MD Attending Dr: Dr. Harpal Cruz MD Status: REG Guille CASPER Ordering Dr: Harpal Cruz MD Date: 02/24/25 Location: CVS Sex: F C Admitted: Reason For Study Reason For Study: MURMUR Procedure This was a 2D Doppler, Color Flow transthoracic echocardiogram. Exam performed in department. Left Ventricle Normal LV size. The left ventricular ejection fraction is 65 %. Right Ventricle Normal RV size. Normal systolic function. Atria Normal left atrium. Normal right atrium. Mitral Valve Normal mitral valve. Tricuspid Valve Normal tricuspid valve. Mild to moderate (1-2+) tricuspid valve insufficiency. Pulmonary artery systolic pressure is 36 mmHg. Aortic Valve Normal aortic valve. Peak aortic valve gradient 23 mmHg. Mean aortic valve gradient 14 mmHg. Great Vessels Normal aortic root. The pulmonary artery is normal size. Inferior vena cava collapse with respiration. Pericardium/Pleural No pericardial effusion. MMode/2D Measurements Calculations LVIDd: 5.0 cm IVSd: 0.97 cm LVOT diam: 1.9 cm LVIDs: 3.2 cm LVPWd: 0.88 cm LVOT area: 3.0 cm2 RVDd: 4.6 cm FS: 35.1 % asc Aorta Diam: 3.3 cm LAV(MOD-bp): 69.1 ml LVAd ap4: 28.1 cm2 LAV(MOD-bp) Indexed: 33.0 ml/m2 LVLd ap4: 7.4 cm LAV(MOD-sp2): 67.0 ml EDV(MOD-sp4): 84.7 ml LAV(MOD-sp4): 66.2 ml EDV(sp4-el): 90.2 ml LVAs ap4: 15.6 cm2 LVLs ap4: 6.4 cm ESV(MOD-sp4): 31.7 ml ESV(sp4-el): 32.2 ml EF(MOD-sp4): 62.5 % EF(sp4-el): 64.3 % SV(MOD-sp4): 53.0 ml SV(MOD-sp2): 57.7 ml LVAd ap2: 27.8 cm2 LVLd ap2: 7.5 cm SI(MOD-sp4): 25.3 ml/m2 SI(MOD-sp2): 27.6 ml/m2 EDV(MOD-sp2): 81.6 ml EDV(sp2-el): 87.0 ml LVAs ap2: 13.7 cm2 LVLs ap2: 6.3 cm ESV(MOD-sp2): 23.8 ml ESV(sp2-el): 25.1 ml EF(MOD-sp2): 70.8 % SV(sp4-el): 58.0 ml Ao sinus diam: 2.[address] Junction: 2.2 cm LA A4 area: 22.1 cm2 LA dimension(2D): 3.8 cm RA A4 area: 8.7 cm2 TAPSE: 2.0 cm Time Measurements MV dec time: 0.15 sec Doppler Measurements Calculations MV E max ana maria: 103.1 cm/sec Lat Peak E' Ana Maria: 16.4 cm/sec Med Peak E' Ana Maria: 10.3 cm/sec MV A max ana maria: 71.1 cm/sec E/E' lat: 6.3 E/E' med: 10.0 MV E/A: 1.4 Ao V2 max: 240.5 cm/sec LV V1 max: 136.6 cm/sec MV dec slope: 681.5 cm/sec2 Ao max P.2 mmHg LV V1 max P.5 mmHg Ao V2 mean: 177.9 cm/sec LV V1 mean P.6 mmHg Ao mean P.7 mmHg LV V1 mean: 104.2 cm/sec Ao V2 VTI: 58.8 cm LV V1 VTI: 31.2 cm AV (velocity ratio): 0.53 STANFORD(I,D): 1.6 cm2 STANFORD(V,D): 1.7 cm2 SV(LVOT): 93.0 ml PA V2 max: 102.8 cm/sec TR max ana maria: 284.5 cm/sec TR max P.4 mmHg ECHO/Echo Complete Interpretation Summary Normal LV size. The left ventricular ejection fraction is 65 %. Peak aortic valve gradient 23 mmHg. Mean aortic valve gradient 14 mmHg. Normal aortic valve. Pulmonary artery systolic pressure is 36 mmHg. ___ Ordering Physician: Harpal Cruz Referring Physician: Harpal Cruz MD Performed By: Tracy Vásquez RDCS 02/24/25 145 Date Harpal Cruz MD CC: JU Ritchie; Dr. Harpal Cruz MD Date Dictated: 02/24/25805 Date Transcribed: 02/24/251455 Manager Corporate Communications: Hedy [facility] 12 Lead EKG performed by [facility] on 01-08-2025 12 Lead EKG performed by [facility] [address] [place] [address] 12 Lead EKG performed by [facility] 01/08/25844 MR#: [id number] Acct: [id number] Name: DIAN JANE Rep #: [id number] : 1955 69 From: Harpal Cruz MD Attending Dr: Dr. Harpal Cruz MD Status: DEP A MB Ordering Dr: Harpal Cruz MD Date: 01/08/25 Location: [facility] Sex: F C Admitted: BMS/12 Lead EKG performed by [facility] ECG Report Interpretation -Sinus Rhythm Low voltage in precordial leads. ABNORMAL Electronically signed on 01/14/2025 at 08:17 by Harpal Cruz [employer] Version [id number] 01/14/25820 Date Harpal Cruz MD CC: JU Ritchie Date Dictated: 01/08/25844 Date Transcribed: 01/08/25844 Manager Corporate Communications: [place] Signed Normal [facility] Cardiology Visit Reporton Cardiology Visit Report [facility] [address] [place] [address] OFFICE VISIT Date of Service: 01/08/25 MR#: [id number] Acct: [id number] Name: DAIN JANE Rep #: [id number] : 1955 Provider: Dr. Harpal Cruz MD Age/Sex: 69/F Location: [facility] Status: Signed HPI HPI History of Present Illness Details: 69-year-old lady recently relocated here from [place] with a history of mild coronary disease status post previous angioplasty and stenting in 2014 and a more recent history of diabetes mellitus and cirrhosis of the liver with esophageal varices grade 2. She recently had these cauterized again by the real estate representative after she was noted to be anemic. She denies any chest pain she does get occasional palpitations no shortness of breath no pedal edema. In December of this year she was in the emergency room with a low hemoglobin and received 3 units of packed red blood cells. She says that she was told that she had a heart murmur. She has had no major cardiac issues. She did have her cardiac catheterization in June 2020 for which demonstrated nonobstructive CAD with patent stents noted in the LAD and the circumflex artery and the right coronary artery did not have any significant stenosis with the right coronary artery being nondominant. She presents today for optimization of care. Her physical exam is unremarkable other than a soft systolic murmur her electrocardiogram demonstrates sinus rhythm with a rate of 68 bpm. Intake Vital Signs 10/06/24 11:58 12/11/24 10:16 01/08/25 08:45 Height 5 ft 2 in 5 ft 2 in 5 ft 2 in Weight: 247 lb BMI 45.1 BP 111/56 L Blood Pressure Location Lt brachial Position Sitting Respiration 16 Pulse 68 Pulse Source Monitor Intake Visit Reasons: CAD/EDEMA (ERMA) Compliance Assistant Required: No Accompanied by: Significant Other Is patient in pain?: No Allergies Influenza Virus Vaccines (flu vaccine) Allergy (Severe, Verified 01/08/25 08:51) Anaphylaxis hydrocodone Allergy (Verified 01/08/25 08:51) Angioedema Corticosteroids (Glucocorticoids) Adverse Reaction (Intermediate, Verified 01/08/25 08:51) Other Medications ???Medication ???Instructions ???Recorded ???Confirmed ???Type clopidogrel 75 mg tablet (Plavix) 75 mg PO DAILY anti platelet 10/2901/08/25 History methocarbamol 750 mg tablet 1,500 mg PO QHS muscle spasms 10/2901/08/25 History nitroglycerin 0.4 mg sublingual 0.4 mg sublingual Q5-15M PRN chest 12/04/24 01/08/25 History tablet pain nadolol 20 mg tablet 10 mg (1/2 x 20 mg) PO BID 90 days 12/06/24 01/08/25 Rx #90 tabs spironolactone 100 mg tablet 100 mg PO QAM #30 tabs 12/11/24 Rx cholecalciferol (vitamin D3) 325 125 mcg PO QODAY 01/08/25 01/08/25 History mcg (13,000 unit) capsule pantoprazole 40 mg tablet,delayed 40 mg PO QDAY 01/08/25 01/08/25 H istory release simvastatin 20 mg tablet 20 mg PO QDAY 01/08/25 01/08/25 Hi story Have you fallen in the past year?: No PFSH Medical History Esophageal varices Bilateral carotid artery disease SEVERINO (obstructive sleep apnea) GERD (gastroesophageal reflux disease) Essential (primary) hypertension Edema Cirrhosis Diabetes type 2 Coronary artery disease Surgical History History of percutaneous angioplasty ( 10/2014) Hx of section Hx of total knee replacement History of total hysterectomy with bilateral salpingo-oophorectomy (BSO) Hx of appendectomy Family History Mother Heart valve replaced Sister Myocardial infarction Social History Smoking Status: Never smoker alcohol intake: never substance use type: does not use ROS Const Const: Positive for difficulty sleeping (has sleep apnea); Negative for fatigue, weakness, headache(s) or daytime sleepiness ENT ENT: Positive for dizziness (with position changes); Negative for headache(s) or Nosebleed/epistaxis Cardio Chest Pain: No Palpitations: Yes Edema: Bilateral (BLE) Resp Respiratory: Negative for SOB with activity, SOB at rest, SOB orthopnea SOB lying down or Cough GI GI: Negative nausea, vomiting or heartburn Neuro Neuro: Positive for dizziness (with position changes); Negative for lightheadedness, near syncope, headache(s) or weakness Endo Endo: Negative for fatigue Cardiology Exam Const Appearance: cooperative, healthy appearing, no acute distress, well developed and well groomed Nutritional Appearance: average body habitus and well nourished Orientation: alert, awake and oriented x3 Head Head: normal to inspection, normocephalic a (more content not included)... Normal [facility] 01-06-2025 [facility] Office Visit ([facility] ) ----- DIAN JANE ([id number]) 1955 F Date Time Provider Department 01/06/25 10:30 AM VENKATA DANIELLE [facility] During your visit today, we recorded the following information about you: Temperature Pulse Respiration Blood pressure 98.2 degrees 72/minute 18/minute 110/78 Weight 111.3 kg Venkata Danielle MD 01/06/2025 2:22 PM Signed [facility] Subjective Dian Jane is a 69 year old female. Patient presents with: left foot pain: X 1 day-cannot recall an injury Left heel pain: Duration: Woke with pain in the heel yesterday morning, no known injury Location: left heel and arch Character: sharp 5/10 at rest, feels like a numb bubble under her heel sometimes. Radiation: some up the calf Aggravating: standing and walking Relieving: Pain relievers: aspercreme Associated: swelling (unchanged), shortness of breath (unchanged), returned from visit to [place] 2 days ago, has been in PT 6 weeks for injuring right knee replacement, had blood transfusion and EGD for bleeding varices last month Pertinent negatives: Denies fever, chills, palpitations, chest pain, back pain, radicular leg pain, cyanosis. 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 Comments: Ambulates with a cane HENT: Mouth/Throat: Mouth: Mucous membranes are moist. Eyes: Extraocular Movements: Extraocular movements intact. Conjunctiva/sclera: Conjunctivae normal. Pupils: Pupils are equal, round, and reactive to light. Cardiovascular: Rate and Rhythm: Normal rate and regular rhythm. Pulses: Dorsalis pedis pulses are 1+ on the right side. Pulmonary: Breath sounds: No wheezing, rhonchi or rales. Comments: Mild conversational dyspnea Musculoskeletal: Cervical back: Neck supple. Left ankle: Swelling (2+ pitting edema left lateral malleolus) present. No deformity, ecchymosis or lacerations. Tenderness present. No lateral malleolus, medial malleolus, base of 5th metatarsal or proximal fibula tenderness. Comments: Mild discomfort with palpation of the calf and achilles. Sharp pain with palpation of the calcaneus medially and inferior aspects. Neurological: Mental Status: She is alert. {ASSESSMENT/PLAN: 1. Pain of left heel - ICD9: 729.5, ICD10: M79.672 (primary diagnosis) 2. Heel spur, left - ICD9: 726.73, ICD10: M77.32 - XR CALCANEUS 2V AXIAL/LAT LEFT - XR ANKLE GENERAL 3V AP/LAT/OBL LEFT FINDINGS: 3 views of the left ankle and 2 views of the left calcaneus have been obtained. There is no acute fracture or dislocation. There is plantar calcaneal spur and slight plantar fascial calcification. There is calcification of the distal Achilles tendon and at the site of its insertion into the posterior Achilles. Osseous structures are intact. Joint spaces are maintained. There is no joint effusion. There is soft tissue swelling about the ankle. Her pain is in the location of heel spurs. Treatment options are limited by liver cirrhosis and diabetes. She is unable to take regular ibuprofen or acetaminophen. She reports she is also unable to get cortisone injections since she had severe hyperglycemia for weeks after getting one. Treat with rest, ice, and elevation.Schedule follow-up with podiatry. Follow up with PCP in the interim. 3. Pain of left calf - ICD9: 729.5, ICD10: M79.662 Primary location of pain is in the calcaneus however she has edema, calf pain, and recent 6-hour drive. - US DVT LOWER LEFT to rule out DVT. Proceed to the ED of pain out of proportion to exam worsens. Venkata Danielle MD Differential Diagnoses - plantar fasciitis is more likely for the following reason(s): point tenderness and spurs on xray - right lower leg DVT is less likely for the following reason(s): primary tenderness is in the calcaneus Procedures Allergies As of Date: 01/06/2025 Noted Allergy Reaction CORTISONE 10/06/2024 14 - Other: See Comments Comments: Raises BP INFLUENZA VIRUS VACCINES 10/06/2024 10 - Anaphylaxis Date Reviewed: 01/06/2025 Reviewed by: Diamond Lujan LPN - Fully Assessed Reason for Visit: left foot pain [Other] Cmt: X 1 day-cannot recall an injury Primary Visit Diagnosis:Pain of left heel [M79.672] Other Visit Diagnoses:Heel spur, left [M77.32] Pain of left calf [M79.662] Order(s):XR CALCANEUS 2V AXIAL/LAT LEFT [[id number]] Order #: [id number] (more content not included)... Normal [facility] No Panel Informationon 01-06 IMPRESSION: Plantar and posterior calcaneal spurs no acute process seen. Manager Corporate Communications: [employer] Transcribe Date/Time: Jan 06 2025 11:27A Dictated by : KIRA ECHAVARRIA MD This examination was interpreted and the report reviewed and electronically signed by: KIRA ECHAVARRIA MD on Jan 06 2025 11:29AM [facility] DIVISION OF RADIOLOGY Radiology Study observation (narrative) [facility] No Panel InformationOrdered By: [facility] Provider on 01-06-2025 [facility] US DVT LOWER LTon 01-06-2025 US DVT LOWER LT * * *Final Report* * * DATE OF EXAM: Jan 06 2025 1:59PM WRU 1006 - US DVT LOWER LT / PROCEDURE REASON: Pain of left calf * * * * Physician Interpretation * * * * EXAMINATION: LEFT LOWER EXTREMITY DEEP VENOUS ULTRASOUND WITH DOPPLER IMAGING CLINICAL HISTORY: Calf pain TECHNIQUE: Grayscale with compression maneuvers, color Doppler and spectral Doppler imaging of the left proximal deep veins was performed. Grayscale with compression maneuvers of the peroneal and posterior tibial veins was performed. The left great and small saphenous veins were evaluated at their insertion to the deep system. The contralateral common femoral vein was imaged for comparison. Images were obtained and stored in a permanent archive and interpreted remotely. MQ: USLEL_1 COMPARISON: None RESULT: LEFT LOWER EXTREMITY PROXIMAL DEEP VEINS Distal External Iliac, Common Femoral and proximal Profunda Veins: Compression: Normal Doppler: Normal, spontaneous respirophasic flow. Normal response to augmentation. Femoral vein: Compression: Normal Doppler: Normal, spontaneous flow. Normal response to augmentation. Popliteal vein: Compression: Normal Doppler: Normal, spontaneous flow. Normal response to augmentation. CALF DEEP VEINS Peroneal veins: Grossly normal compression in their limited visualized segments. Posterior tibial veins: Grossly normal compression in their limited visualized segments. Gastrocnemius and Soleal veins: Not imaged. SUPERFICIAL VEINS Great saphenous: Patent and compressible at insertion into common femoral vein; not otherwise assessed. Small Saphenous: Patent and compressible in the proximal calf, not otherwise assessed. RIGHT LOWER EXTREMITY (FOR COMPARISON) Common Femoral Vein: Compression: Normal Doppler: Normal, spontaneous respirophasic flow. Normal response to augmentation. IMPRESSION: Negative study for proximal DVT in the left lower extremity. No definite calf DVT in the left lower extremity in their limited visualized segments. Negative study for superficial thrombophlebitis in the imaged segments of the left lower extremity. Manager Corporate Communications: [facility] Transcribe Date/Time: Jan 06 2025 2:01P Dictated by : CALI MIRELES MD This examination was interpreted and the report reviewed and electronically signed by: CALI MIRELES MD on Jan 06 2025 2:03PM EST [id number] Normal [facility] Lower extremity vein - [place] 01-06-2025 IMPRESSION: Negative study for proximal DVT in the left lower extremity. No definite calf DVT in the left lower extremity in their limited visualized segments. Negative study for superficial thrombophlebitis in the imaged segments of the left lower extremity. Manager Corporate Communications: [employer] Transcribe Date/Time: Jan 06 2025 2:01P Dictated by : CALI MIRELES MD This examination was interpreted and the report reviewed and electronically signed by: CALI MIRELES MD on Jan 06 2025 2:03PM EST DIVISION OF RADIOLOGY * * *Final Report* * * DATE OF EXAM: Jan 06 2025 1:59PM U 1006 - US DVT LOWER LT / PROCEDURE REASON: Pain of left calf * * * * Physician Interpretation * * * * EXAMINATION: LEFT LOWER EXTREMITY DEEP VENOUS ULTRASOUND WITH DOPPLER IMAGING CLINICAL HISTORY: Calf pain TECHNIQUE: Grayscale with compression maneuvers, color Doppler and spectral Doppler imaging of the left proximal deep veins was performed. Grayscale with compression maneuvers of the peroneal and posterior tibial veins was performed. The left great and small saphenous veins were evaluated at their insertion to the deep system. The contralateral common femoral vein was imaged for comparison. Images were obtained and stored in a permanent archive and interpreted remotely. MQ: USLEL_1 COMPARISON: None RESULT: LEFT LOWER EXTREMITY PROXIMAL DEEP VEINS Distal External Iliac, Common Femoral and proximal Profunda Veins: Compression: Normal Doppler: Normal, spontaneous respirophasic flow. Normal response to augmentation. Femoral vein: Compression: Normal Doppler: Normal, spontaneous flow. Normal response to augmentation. Popliteal vein: Compression: Normal Doppler: Normal, spontaneous flow. Normal response to augmentation. CALF DEEP VEINS Peroneal veins: Grossly normal compression in their limited visualized segments. Posterior tibial veins: Grossly normal compression in their limited visualized segments. Gastrocnemius and Soleal veins: Not imaged. SUPERFICIAL VEINS Great saphenous: Patent and compressible at insertion into common femoral vein; not otherwise assessed. Small Saphenous: Patent and compressible in the proximal calf, not otherwise assessed. RIGHT LOWER EXTREMITY (FOR COMPARISON) Common Femoral Vein: Compression: Normal Doppler: Normal, spontaneous respirophasic flow. Normal response to augmentation. DIVISION OF RADIOLOGY Provider, [facility] - 01/06/2025 * * *Final Report* * * DATE OF EXAM: Jan 06 2025 1:59PM [facility] 1006 - US DVT LOWER LT / PROCEDURE REASON: Pain of left calf * * * * Physician Interpretation * * * * EXAMINATION: LEFT LOWER EXTREMITY DEEP VENOUS ULTRASOUND WITH DOPPLER IMAGING CLINICAL HISTORY: Calf pain TECHNIQUE: Grayscale with compression maneuvers, color Doppler and spectral Doppler imaging of the left proximal deep veins was performed. Grayscale with compression maneuvers of the peroneal and posterior tibial veins was performed. The left great and small saphenous veins were evaluated at their insertion to the deep system. The contralateral common femoral vein was imaged for comparison. Images were obtained and stored in a permanent archive and interpreted remotely. MQ: USLEL_1 COMPARISON: None RESULT: LEFT LOWER EXTREMITY PROXIMAL DEEP VEINS Distal External Iliac, Common Femoral and proximal Profunda Veins: Compression: Normal Doppler: Normal, spontaneous respirophasic flow. Normal response to augmentation. Femoral vein: Compression: Normal Doppler: Normal, spontaneous flow. Normal response to augmentation. Popliteal vein: Compression: Normal Doppler: Normal, spontaneous flow. Normal response to augmentation. CALF DEEP VEINS Peroneal veins: Grossly normal compression in their limited visualized segments. Posterior tibial veins: Grossly normal compression in their limited visualized segments. Gastrocnemius and Soleal veins: Not imaged. SUPERFICIAL VEINS Great saphenous: Patent and compressible at insertion into common femoral vein; not otherwise assessed. Small Saphenous: Patent and compressible in the proximal calf, not otherwise assessed. RIGHT LOWER EXTREMITY (FOR COMPARISON) Common Femoral Vein: Compression: Normal Doppler: Normal, spontaneous respirophasic flow. Normal response to augmentation. IMPRESSION IMPRESSION: Negative study for proximal DVT in the left lower extremity. No definite calf DVT in the left lower extremity in their limited visualized segments. Negative study for superficial thrombophlebitis in the imaged segments of the left lower extremity. Manager Corporate Communications: [facility] Transcribe Date/Time: Jan 06 2025 2:01P Dictated by : CALI MIRELES MD This examination was interpreted and the report reviewed and electronically signed by: CALI MIRELES MD on Jan 06 2025 2:03PM [facility] XR ANKLE 3V AP/LAT/OBL LTon 01-06-2025 XR ANKLE 3V AP/LAT/OBL LT * * *Final Rep ort* * * DATE OF EXAM: Jan 06 2025 11:14AM WOX 5298 - XR ANKLE 3V AP/LAT/OBL LT / PROCEDURE REASON: Pain of left heel * * * * Physician Interpretation * * * * History: Left heel FINDINGS: 3 views of the left ankle and 2 views of the left calcaneus have been obtained. There is no acute fracture or dislocation. There is plantar calcaneal spur and slight plantar fascial calcification. There is calcification of the distal Achilles tendon and at the site of its insertion into the posterior Achilles. Osseous structures are intact. Joint spaces are maintained. There is no joint effusion. There is soft tissue swelling about the ankle. IMPRESSION: Plantar and posterior calcaneal spurs no acute process seen. Manager Corporate Communications: [employer] Transcribe Date/Time: Jan 06 2025 11:27A Dictated by : KIRA ECHAVARRIA MD This examination was interpreted and the report reviewed and electronically signed by: KIRA ECHAVARRIA MD on Jan 06 2025 11:29AM EST [id number] Normal [facility] XR Ankle - left AP and Later al and obliqueon 01-06-2025 * * *Final Report* * * DATE OF EXAM: Jan 06 2025 11:14AM WOX 5298 - XR ANKLE 3V AP/LAT/OBL LT / PROCEDURE REASON: Pain of left heel * * * * Physician Interpretation * * * * History: Left heel FINDINGS: 3 views of the left ankle and 2 views of the left calcaneus have been obtained. There is no acute fracture or dislocation. There is plantar calcaneal spur and slight plantar fascial calcification. There is calcification of the distal Achilles tendon and at the site of its insertion into the posterior Achilles. Osseous structures are intact. Joint spaces are maintained. There is no joint effusion. There is soft tissue swelling about the ankle. DIVISION OF RADIOLOGY Provider, [facility] - 01/06/2025 * * *Final Report* * * DATE OF EXAM: Jan 06 2025 11:14AM WOX 5298 - XR ANKLE 3V AP/LAT/OBL LT / PROCEDURE REASON: Pain of left heel * * * * Physician Interpretation * * * * History: Left heel FINDINGS: 3 views of the left ankle and 2 views of the left calcaneus have been obtained. There is no acute fracture or dislocation. There is plantar calcaneal spur and slight plantar fascial calcification. There is calcification of the distal Achilles tendon and at the site of its insertion into the posterior Achilles. Osseous structures are intact. Joint spaces are maintained. There is no joint effusion. There is soft tissue swelling about the ankle. IMPRESSION IMPRESSION: Plantar and posterior calcaneal spurs no acute process seen. Manager Corporate Communications: [employer] Transcribe Date/Time: Jan 06 2025 11:27A Dictated by : KIRA ECHAVARRIA MD This examination was interpreted and the report reviewed and electronically signed by: KIRA ECHAVARRIA MD on Jan 06 2025 11:29AM EST [facility] XR CALCANEUS 2V AXIAL/LAT LT on 01-06-2025 XR CALCANEUS 2V AXIAL/LAT LT * * *Final Report* * * DATE OF EXAM: Jan 06 2025 11:14AM WOX 5306 - XR CALCANEUS 2V AXIAL/LAT LT / PROCEDURE REASON: Pain of left heel * * * * Physician Interpretation * * * * History: Left heel FINDINGS: 3 views of the left ankle and 2 views of the left calcaneus have been obtained. There is no acute fracture or dislocation. There is plantar calcaneal spur and slight plantar fascial calcification. There is calcification of the distal Achilles tendon and at the site of its insertion into the posterior Achilles. Osseous structures are intact. Joint spaces are maintained. There is no joint effusion. There is soft tissue swelling about the ankle. IMPRESSION: Plantar and posterior calcaneal spurs no acute process seen. Manager Corporate Communications: [facility] Transcribe Date/Time: Jan 06 2025 11:27A Dictated by : KIRA ECHAVARRIA MD This examination was interpreted and the report reviewed and electronically signed by: KIRA ECHAVARRIA MD on Jan 06 2025 11:29AM EST [id number] Normal [facility] XR Calcaneus - left 2 Viewso n 01-06-2025 * * *Final Report* * * DATE OF EXAM: Jan 06 2025 11:14AM WOX 5306 - XR CALCANEUS 2V AXIAL/LAT LT / PROCEDURE REASON: Pain of left heel * * * * Physician Interpretation * * * * History: Left heel FINDINGS: 3 views of the left ankle and 2 views of the left calcaneus have been obtained. There is no acute fracture or dislocation. There is plantar calcaneal spur and slight plantar fascial calcification. There is calcification of the distal Achilles tendon and at the site of its insertion into the posterior Achilles. Osseous structures are intact. Joint spaces are maintained. There is no joint effusion. There is soft tissue swelling about the ankle. DIVISION OF RADIOLOGY [facility] * * *Final Report* * * DATE OF EXAM: Jan 06 2025 11:14AM WOX 5306 - XR CALCANEUS 2V AXIAL/LAT LT / PROCEDURE REASON: Pain of left heel * * * * Physician Interpretation * * * * History: Left heel FINDINGS: 3 views of the left ankle and 2 views of the left calcaneus have been obtained. There is no acute fracture or dislocation. There is plantar calcaneal spur and slight plantar fascial calcification. There is calcification of the distal Achilles tendon and at the site of its insertion into the posterior Achilles. Osseous structures are intact. Joint spaces are maintained. There is no joint effusion. There is soft tissue swelling about the ankle. IMPRESSION IMPRESSION: Plantar and posterior calcaneal spurs no acute process seen. Manager Corporate Communications: [employer] Transcribe Date/Time: Jan 06 2025 11:27A Dictated by : KIRA ECHAVARRIA MD This examination was interpreted and the report reviewed and electronically signed by: KIRA ECHAVARRIA MD on Jan 06 2025 11:29AM [facility] Abdomen Limitedon 12-20-2024 Abdomen Limited [facility] [address] [place] [id number] Abdomen Limited MR#: [id number] Acct: [id number] Name: DIAN JANE Rep #: [id number] : [id number] F [id number] From: Antwan keller MD PCP: JU Mishra Status: REG CLI Study: Abdomen Limited Date of Exam: 12/20/24 Exam# [id number] Ordering Dr: Jolanta Paz PROCEDURE: ABDOMEN LIMITED 12/20/2024 REASON FOR EXAM: RUQ COMPARISON: None FINDINGS: Liver: Diffusely echogenic suggesting fatty infiltration. Gallbladder: No stones, sludge, wall thickening or tenderness. Common bile duct: Normal measuring 3 mm.. Pancreas: Normal Other: Visualized portions of the right kidney are unremarkable. No right upper quadrant ascites. US/Abdomen Limited IMPRESSION: FATTY LIVER. NO CHOLELITHIASIS OR BILIARY DILATION. Reading Location: [id number] CC: JU Ritchie; SHANNON Norman Manager Corporate Communications: Signed Normal [facility] CBC W/Diff, Automatedon 12-03 PATH REV Reviewed Normal [facility] Comment on above: Result Comment: SEE REPORT IN PATIENT'S EMR AMENDED REPORT 12/17/24 1542 PATH REV previously reported as: January Performed By: #### L 100.0100, L3300.0700, L300.3900, L501.6710, L500.4050, L503.5510, L101.9900 #### [facility] [address] [place], [place], [id number] ANCAon 12-13-2024 Atypical pANCA <1:20 Normal Neg:<1:20 [facility] Comment on above: Order Comment: Test( s) [id number]-Kceejn, Serum or Plasmawas developed and its performance characteristicsdetermined by [employer]. It has not been cleared or approvedby the Food and Drug Administration. Result Comment: The atypical pANCA pattern has been observed in a significant percentage of patients with ulcerative colitis, primary sclerosing cholangitis and autoimmune hepatitis. Performed By: #### L 100.0100, L3300.0700, L300.3900, L501.6710, L500.4050, L503.5510, L101.9900 #### [facility] [address] [place], [place], [id number] Cytoplasmic Ab <1:20 Normal Neg:<1:20 [facility] Comment on above: Order Comment: Test( s) [id number], Serum or Plasmawas developed and its performance characteristicsdetermined by [employer]. It has not been cleared or approvedby the Food and Drug Administration. Performed By: #### L 100.0100, L3300.0700, L300.3900, L501.6710, L500.4050, L503.5510, L101.9900 #### [facility] [address] [place], [place], [id number] Perinuclear Ab. <1:20 Normal Neg:<1:20 [facility] Comment on above: Order Comment: Test( s) 471351-Qydfhv, Serum or Plasmawas developed and its performance characteristicsdetermined by [employer]. It has not been cleared or approvedby the Food and Drug Administration. Result Comment: The presence of positive fluorescence exhibiting P-ANCA or C-ANCA patterns alone is not specific for the diagnosis of Itz's Granulomatosis (WG) or microscopic polyangiitis. Decisions about treatment should not be based solely on ANCA IFA results. The [employer] ANCA [employer] Consensus recommends follow up testing of positive sera with both WA- 3 and MPO-ANCA enzyme immunoassays. As many as 5% serum samples are positive only by EIA. Ref. AM J Clin Pathol 1999;111:507-513. Performed By: #### L 100.0100, L3300.0700, L300.3900, L501.6710, L500.4050, L503.5510, L101.9900 #### [facility] [address] [facility] [place], [address] Angiotensin Convert Enzymeon 12-13-2024 ANGIOT-CONV.ENZ 102 U/L High 14-82 [facility] Comment on above: Order Comment: Test( s) 607440-Qdxfpx, Serum or Plasmawas developed and its performance characteristicsdetermined by [employer]. It has not been cleared or approvedby the Food and Drug Administration. Performed By: #### L 100.0100, L3300.0700, L300.3900, L501.6710, L500.4050, L503.5510, L101.9900 #### [facility] [address] [place], [place], [id number] Anti-Smooth Muscle ABSon ANTISMOOTH MUSC 12 Units Normal 0-19 [facility] Comment on above: Order Comment: Test( s) [id number]-Fodvxv, Serum or Plasmawas developed and its performance characteristicsdetermined by [employer]. It has not been cleared or approvedby the Food and Drug Administration. Result Comment: Nega tive 0 - 19 Weak positive 20 - 30 Moderate to strong positive >30 Actin Antibodies are found in 52-85% of patients with autoimmune hepatitis or chronic active hepatitis and in 22% of patients with primary biliary cirrhosis. Performed By: #### L 100.0100, L3300.0700, L300.3900, L501.6710, L500.4050, L503.5510, L101.9900 #### [facility] [address] [place], [place], [id number] Ceruloplasminon 12-13-2024 CERULOPLASMIN 26.0 mg/dL Normal 19.0-39.0 [facility] Comment on above: Order Comment: Test( s) 485876-Knmtrj, Serum or Plasmawas developed and its performance characteristicsdetermined by [employer]. It has not been cleared or approvedby the Food and Drug Administration. Performed By: #### L 100.0100, L3300.0700, L300.3900, L501.6710, L500.4050, L503.5510, L101.9900 #### [facility] [address] [place], [place], [id number] Copper, Serum or Plasmaon COPPER, SERUM 114 ug/dL Normal 80-158 [facility] Comment on above: Order Comment: Test( s) 394044-Wchwno, Serum or Plasmawas developed and its performance characteristicsdetermined by [employer]. It has not been cleared or approvedby the Food and Drug Administration. Result Comment: Dete ction Limit = 5 Performed at: [address] [id number] [employer]: Chance Geronimo PhD, Phone: [phone] Performed at: [address] [id number] [employer]: Buddy Navarrete MD, Phone: [phone] Performed By: #### L 100.0100, L3300.0700, L300.3900, L501.6710, L500.4050, L503.5510, L101.9900 #### [facility] [address] [place], [address] SONJA Comprehensive Panelon SONJA TABLE Comment Normal . [facility] Comment on above: Result Comment: Auto antibody Disease Association Condition Frequency --------- Antinuclear Antibody, SLE, mixed connective Direct (SONJA-D) tissue diseases --------- dsDNA SLE 40 - 60% --------- Chromatin Drug induced SLE 90% SLE 48 - 97% --------- SSA (Ro) SLE 25 - 35% Sjogren's Syndrome 40 - 70% Lupus 100% --------- SSB (La) SLE 10% Sjogren's Syndrome 30% --------- Sm (anti-Harvey) SLE 15 - 30% --------- PACKER INSPECTOR Mixed Connective Tissue Disease 95% (U1 nRNP, SLE 30 - 50% anti-ribonucleoprotein) Polymyositis and/or Dermatomyositis 20% --------- Scl-70 (antiDNA Scleroderma (diffuse) 20 - 35% topoisomerase) Crest 13% --------- Sara-1 Polymyositis and/or Dermatomyositis 20 - 40% --------- Centromere B Scleroderma - Crest variant 80% AMENDED REPORT 12/12/241307 COMMENT previously reported as: Test not performed Performed By: #### L 100.0100, L3300.0700, L300.3900, L501.6710, L500.4050, L503.5510, L101.9900 #### [facility] [address] [place], [address] ANTI-CENT B AB <0.2 Normal 0.0-0.9 [facility] Comment on above: Result Comment: AMENDED REPORT 12/12/241307 ANTI-CENT B previously reported as: Test not performed Performed By: #### L 100.0100, L3300.0700, L300.3900, L501.6710, L500.4050, L503.5510, L101.9900 #### [facility] [address] [place], [address] ANTI-DNA (DS)AB <1 Normal 0-9 [facility] Comment on above: Result Comment: Nega tive <5 Equivocal 5 - 9 Positive >9 AMENDED REPORT 12/12/241307 dsDNA AB previously reported as: Test not performed Performed By: #### L 100.0100, L3300.0700, L300.3900, L501.6710, L500.4050, L503.5510, L101.9900 #### [facility] [address] [place], [address] ANTI-SARA-1 <0.2 Normal 0.0-0.9 [facility] Comment on above: Result Comment: AMENDED REPORT 12/12/241307 ANTI-SARA previously reported as: Test not performed Performed By: #### L 100.0100, L3300.0700, L300.3900, L501.6710, L500.4050, L503.5510, L101.9900 #### [facility] [address] [place], [address] ANTI-SS-A < 0.2 Normal 0.0-0.9 [facility] Comment on above: Result Comment: AMENDED REPORT 12/12/241307 Anti-SS-A previously reported as: Test not performed Performed By: #### L 100.0100, L3300.0700, L300.3900, L501.6710, L500.4050, L503.5510, L101.9900 #### [facility] [address] [place], [address] ANTI-SS-B < 0.2 Normal 0.0-0.9 [facility] Comment on above: Result Comment: AMENDED REPORT 12/12/241307 Anti-SS-B previously reported as: Test not performed Performed By: #### L 100.0100, L3300.0700, L300.3900, L501.6710, L500.4050, L503.5510, L101.9900 #### [facility] [address] [place], [address] ANTICHROMATIN <0.2 Normal 0.0-0.9 [facility] Comment on above: Result Comment: AMENDED REPORT 12/12/241307 ANTICHROMATIN previously reported as: Test not performed Performed By: #### L 100.0100, L3300.0700, L300.3900, L501.6710, L500.4050, L503.5510, L101.9900 #### [facility] [address] [place], [address] ANTISCLERODERM <0.2 Normal 0.0-0.9 [facility] Comment on above: Result Comment: AMENDED REPORT 12/12/241307 ANTISCLER previously reported as: Test not performed Performed By: #### L 100.0100, L3300.0700, L300.3900, L501.6710, L500.4050, L503.5510, L101.9900 #### [facility] [address] [place], [address] PACKER INSPECTOR Ab 0.3 AI Normal 0.0-0.9 [facility] Comment on above: Result Comment: AMENDED REPORT 12/12/241307 PACKER INSPECTOR Ab previously reported as: Test not performed Performed By: #### L 100.0100, L3300.0700, L300.3900, L501.6710, L500.4050, L503.5510, L101.9900 #### [facility] [address] [place], [address] HARVEY Ab <0.2 Normal 0.0-0.9 [facility] Comment on above: Result Comment: AMENDED REPORT 12/12/241307 HARVEY Ab previously reported as: Test not performed Performed By: #### L 100.0100, L3300.0700, L300.3900, L501.6710, L500.4050, L503.5510, L101.9900 #### [facility] [address] [place], [place], [id number] Anti-Mitochondrial ABon - ANTIMITOCHON AB <20.0 Normal 0.0-20.0 [facility] Comment on above: Result Comment: Nega tive 0.0 - 20.0 Equivocal 20.1 - 24.9 Positive >24.9 Mitochondrial (M2) Antibodies are found in 90-96% of patients with primary biliary cirrhosis. Performed at: [facility] [address] [id number] [employer]: Chance Geronimo PhD, Phone: [phone] Performed By: #### L 100.0100, L3300.0700, L300.3900, L501.6710, L500.4050, L503.5510, L101.9900 #### [facility] [address] [place], [place], [id number] Absolute lymphocyte countOrd ered By: Jolanta Paz on 12-11-2024 Lymphocytes Auto (Unsp spec) [#/Vol] 1.03 10*3/uL 0.83-4.51 [facility] Absolute neutrophil countOrd ered By: Jolanta Paz on 12-11-2024 Neutrophils (Bld) [#/Vol] 2.0 10*3/uL 2.0-7.7 [facility] Actin IgG QnOrdered By: Delores Paz on 12-11-2024 Anti-Smooth Muscle Antibody 12 Units 0-19 [facility] Comment on above: Negative 0 - 19 Weak positive 20 - 30 Moderate to strong positive >30 Actin Antibodies are found in 52-85% of patients with autoimmune hepatitis or chronic active hepatitis and in 22% of patients with primary biliary cirrhosis. Anion gap in Serum or Plasma Ordered By: Jolanta Paz on 12-11-2024 Anion gap [Moles/Vol] 10 mmol/L 5-15 [facility] Atypical perinuclear antineu trophil cytoplasmic antibodies measurementOrdered By: Jolanta Paz on 12-11-2024 Atypical p-ANCA <1:20 titer Neg:<1:20 [facility] Comment on above: The atypical pANCA p attern has been observed in asignificant percentage of patients with ulcerative colitis,primary sclerosing cholangitis and autoimmune hepatitis. Automated lymphocyte count a s percentage of total leukocytesOrdered By: Jolanta Paz on 12-11-2024 Lymphocytes/100 WBC Auto (Unsp spec) 27.5 % - [facility] BUN/creatinine ratioOrdered By: Jolanta Paz on 12-11-2024 Urea nitrogen/Creatinine [Mass ratio] 14.6 mg/mg - [facility] Basophil percentageOrdered B y: Jolanta Paz on 12-11-2024 Basophils/100 WBC (Bld) 1.3 % High 0-1 [facility] Bilirubin, totalOrdered By: Jolanta Paz on 12-11-2024 Bilirubin [Mass/Vol] 0.83 mg/dL 0.00-1.30 [facility] Blood manual differential co mment interpretation (narrative result)Ordered By: Jolanta Paz on 12-11-2024 Manual differential comment Braxton (Bld) [Interp] S [facility] CBC W/Diff, Automatedon HYPOCHROMASIA 1+ Normal [facility] Comment on above: Performed By: #### L 100.0100, L3300.0700, L300.3900, L501.6710, L500.4050, L503.5510, L101.9900 #### [facility] [address] [place], [place], [id number] SMEAR COMMENT S Normal [facility] Comment on above: Performed By: #### L 100.0100, L3300.0700, L300.3900, L501.6710, L500.4050, L503.5510, L101.9900 #### [facility] [address] [place], [address] Carbon dioxide, total [Moles /volume] in Central venous bloodOrdered By: Jolanta Paz on 12-11-2024 CO2 [Moles/Vol] 20.0 mmol/L Low 21.0-32.0 [facility] Centromere B antibody assayO rdered By: Jolanta Paz on 12-11-2024 Centromere B Antibody <0.2 AI 0.0-0.9 [facility] Comment on above: Previous reported re sult: TNP AIEdited by: MOHIT on 12/12/24:1308 AMENDED REPORT 12/12/24 1308 ANTI-CENT B previously reported as: Test not performed CeruloplasminOrdered By: Madeleine Paz on 12-11-2024 Ceruloplasmin 26.0 mg/dL 19.0-39.0 [facility] Chloride assayOrdered By: Laurence Paz on 12-11-2024 Chloride [Moles/Vol] 108 mmol/L 98-108 [facility] Chromatin antibody assayOrde red By: Jolanta Paz on 12-11-2024 Antichromatin Antibodies <0.2 AI 0.0-0.9 [facility] Comment on above: Previous reported re sult: TNP AIEdited by: MOHIT on 12/12/24:1308 AMENDED REPORT 12/12/24 1308 ANTICHROMATIN previously reported as: Test not performed Comprehensive Metabolic Prof ilon 12-11-2024 Albumin [Mass/Vol] 3.3 g/dL Low 3.4-4.8 [facility] Comment on above: Performed By: #### L 100.0100, L3300.0700, L300.3900, L501.6710, L500.4050, L503.5510, L101.9900 #### [facility] [address] [place], [address] Albumin/Globulin [Mass ratio] 1.2 {ratio} Normal 0.9-2.4 [facility] Comment on above: Performed By: #### L 100.0100, L3300.0700, L300.3900, L501.6710, L500.4050, L503.5510, L101.9900 #### [facility] [address] [place], [address] ALK PHOS 139 U/L High 35-104 [facility] Comment on above: Performed By: #### L 100.0100, L3300.0700, L300.3900, L501.6710, L500.4050, L503.5510, L101.9900 #### [facility] [address] [place], [address] ALT [Catalytic activity/Vol] 19 U/L Normal <=34 [facility] Comment on above: Performed By: #### L 100.0100, L3300.0700, L300.3900, L501.6710, L500.4050, L503.5510, L101.9900 #### [facility] [address] [place], [address] AST [Catalytic activity/Vol] 45 U/L High <=31 [facility] Comment on above: Performed By: #### L 100.0100, L3300.0700, L300.3900, L501.6710, L500.4050, L503.5510, L101.9900 #### [facility] [address] [place], [address] Bilirubin [Mass/Vol] 0.83 mg/dL Normal 0.00-1.30 [facility] Comment on above: Performed By: #### L 100.0100, L3300.0700, L300.3900, L501.6710, L500.4050, L503.5510, L101.9900 #### [facility] [address] [place], [address] BUN/CRE 14.6 RATIO Normal 10-20 [facility] Comment on above: Performed By: #### L 100.0100, L3300.0700, L300.3900, L501.6710, L500.4050, L503.5510, L101.9900 #### [facility] [address] [place], [address] Calcium [Mass/Vol] 8.5 mg/dL Normal 7.6-11.0 [facility] Comment on above: Performed By: #### L 100.0100, L3300.0700, L300.3900, L501.6710, L500.4050, L503.5510, L101.9900 #### [facility] [address] [place], [address] Chloride [Moles/Vol] 108 mmol/L Normal 98-108 [facility] Comment on above: Performed By: #### L 100.0100, L3300.0700, L300.3900, L501.6710, L500.4050, L503.5510, L101.9900 #### [facility] [address] [place], [address] CO2 [Moles/Vol] 20.0 mmol/L Low 21.0-32.0 [facility] Comment on above: Performed By: #### L 100.0100, L3300.0700, L300.3900, L501.6710, L500.4050, L503.5510, L101.9900 #### [facility] [address] [place], [address] Creatinine [Mass/Vol] 0.58 mg/dL Low 0.70-1.20 [facility] Comment on above: Performed By: #### L 100.0100, L3300.0700, L300.3900, L501.6710, L500.4050, L503.5510, L101.9900 #### [facility] [address] [place], [address] GAP 10 Normal 5-15 [facility] Comment on above: Performed By: #### L 100.0100, L3300.0700, L300.3900, L501.6710, L500.4050, L503.5510, L101.9900 #### [facility] [address] [place], [address] GFR/1.73 sq M.predicted among non-blacks MDRD (S/P/Bld) [Vol rate/Area] 98 mL/min/{1.73_m2} Normal >60 [facility] Comment on above: Result Comment: mL/m in/1.73m2 CKD-EPI Creatinine Equation (2020) Performed By: #### L 100.0100, L3300.0700, L300.3900, L501.6710, L500.4050, L503.5510, L101.9900 #### [facility] [address] [place], [address] Globulin (S) [Mass/Vol] 2.8 g/dL Normal 2.2-4.2 [facility] Comment on above: Performed By: #### L 100.0100, L3300.0700, L300.3900, L501.6710, L500.4050, L503.5510, L101.9900 #### [facility] [address] [place], [address] Glucose [Mass/Vol] 105 mg/dL High 70-99 [facility] Comment on above: Performed By: #### L 100.0100, L3300.0700, L300.3900, L501.6710, L500.4050, L503.5510, L101.9900 #### [facility] [address] [place], [address] Potassium [Moles/Vol] 4.0 mmol/L Normal 3.3-5.1 [facility] Comment on above: Performed By: #### L 100.0100, L3300.0700, L300.3900, L501.6710, L500.4050, L503.5510, L101.9900 #### [facility] [address] [place], [place], [phone] (616) Sodium [Moles/Vol] 138 mmol/L Normal 133-145 [facility] Comment on above: Performed By: #### L 100.0100, L3300.0700, L300.3900, L501.6710, L500.4050, L503.5510, L101.9900 #### [facility] [address] [place], [place], [phone] (224) T PROT 6.1 g/dL Normal 5.9-8.4 [facility] Comment on above: Performed By: #### L 100.0100, L3300.0700, L300.3900, L501.6710, L500.4050, L503.5510, L101.9900 #### [facility] [address] [place], [place], [phone] (352) Urea nitrogen [Mass/Vol] 8 mg/dL Normal 4-19 [facility] Comment on above: Performed By: #### L 100.0100, L3300.0700, L300.3900, L501.6710, L500.4050, L503.5510, L101.9900 #### [facility] [address] [place], [place], [id number] Copper, serumOrdered By: Madeleine Paz on 12-11-2024 Serum Copper 114 ug/dL 80-158 [facility] Comment on above: Detection Limit = 5P erformed at: [facility] [id number] Director: Chance Geronimo PhD, Phone: [phone] at: [facility] [address] [id number] Director: Buddy Navarrete MD, Phone: [phone] DNA double strand Ab Qn (S)O rdered By: Jolanta Paz on 12-11-2024 Anti-Double Strand DNA Antibody <1 IU/mL 0-9 [facility] Comment on above: Negative <5 Equivoca l 5 - 9 Positive >9Previous reported result: TNP IU/mLEdited by: MOHIT on 12/12/24:1308 AMENDED REPORT 12/12/24 1308 dsDNA AB previously reported as: Test not performed Eosinophil percentageOrdered By: Jolanta Paz on 12-11-2024 Eosinophils/100 WBC (Bld) 4.3 % 0-5 [facility] Erythrocyte distribution wid th (RBC) [Ratio]Ordered By: Jolanta Paz on 12-11-2024 Erythrocyte distribution width (RBC) [Entitic vol] 60.7 fL High 35.1-43.9 [facility] Erythrocyte distribution wid th ratioOrdered By: Jolanta Paz on 12-11-2024 Erythrocyte distribution width (RBC) [Ratio] 23.3 % High 11.6-14.6 [facility] Erythrocyte distribution wid th standard deviationOrdered By: Jolanta Paz on 12-11-2024 Erythrocyte distribution width (RBC) [Ratio] 60.7 fl High 35.1-43.9 [facility] GFR/1.73 sq M.predicted yadi g non-blacks MDRD (S/P/Bld) [Vol rate/Area]Ordered By: Jolanta Paz on 12-11-2024 Estimated GFR (MDRD) Non-Af Amer 98 >60 [facility] Comment on above: mL/min/1.73m2 CKD-EP I Creatinine Equation (2020) Gastroenterology Visit Repor ton 12-11-2024 Gastroenterology Visit Report [facility] [address] [place] [address] OFFICE VISIT Date of Service: 12/11/24 MR#: [id number] Acct: [id number] Name: DIAN JANE Rep #: [id number] : 1955 Provider: SHANNON [place] Age/Sex: 69/F Location: [facility] Status: Signed Intake Vital Signs 12/05/24 16:42 12/11/24 10:16 Height 5 ft 2 in 5 ft 2 in Weight: 253 lb 8 oz BMI 46.3 BP 121/80 H Position Sitting Pulse 65 Pulse Oximetry (%) 97 Intake Visit Reasons: Hospital FU Chief Complaint: cirrhosis Accompanied by: Allergies Influenza Virus Vaccines (flu vaccine) Allergy (Severe, Verified 10/06/24 12:03) Anaphylaxis hydrocodone Allergy (Verified 12/04/24 09:43) Angioedema Corticosteroids (Glucocorticoids) Adverse Reaction (Intermediate, Verified 10/06/24 12:03) Other Medications ???Medication ???Instructions ???Recorded ???Confirmed ???Type cholecalciferol (vitamin D3) 325 50,000 unit PO QODAY 12/04/2405/29 History mcg (13,000 unit) capsule clopidogrel 75 mg tablet (Plavix) 75 mg PO DAILY anti platelet 10/2912/11/24 History methocarbamol 750 mg tablet 1,500 mg PO QHS muscle spasms 10/2912/06/24 History nitroglycerin 0.4 mg sublingual 0.4 mg sublingual Q5-15M PRN chest 12/04/24 12/04/24 History tablet pain pantoprazole 20 mg tablet,delayed 20 mg PO QHS 12/04/24 12/11/24 Hi story release simvastatin 10 mg tablet 10 mg PO QHS cholesterol 12/04/24 12/06/24 History nadolol 20 mg tablet 10 mg (1/2 x 20 mg) PO BID 90 days 12/06/24 12/11/24 Rx #90 tabs spironolactone 100 mg tablet 100 mg PO QAM #30 tabs 12/11/24 Rx Patient : No Have you fallen in the past year?: No Nurse's Note: OV 12.11.24 Pt here for f/u and reports she is feeling very good. She reports having a small amount of discomfort in her lower abdomen but otherwise no complaints. [facility] Medical History Bilateral carotid artery disease SEVERINO (obstructive sleep apnea) GERD (gastroesophageal reflux disease) Essential (primary) hypertension Edema Cirrhosis Diabetes type 2 Coronary artery disease Surgical History History of percutaneous angioplasty ( 10/2014) Hx of section Hx of total knee replacement History of total hysterectomy with bilateral salpingo-oophorectomy (BSO) Hx of appendectomy Social History Smoking Status: Never smoker HPI HPI Chief Complaint: cirrhosis Details: DIAN JANE, is a 69 F who presents to the office today for f/u. I established .. with PMHx of Cirrhosis diagnosed in [place]. Pt recently moved to [place] and wanting to establish care. Last EGD in Jun 2024 with esophageal varices. Colonoscopy at the same time. Pt also with heartburn and on PPI for years. She has a daily bm sometimes loose and sometimes formed Biochemical work up .10.29: WBC 2.8, Hgb 5.7, PT 18.7, INR 1.5, AST 39, alp 142, AFP 9.4 *Labs ordered and Hgb of 5.6. Pt was called and recommended she go to the ED [facility] admission for low hemoglobin .10.29-4.12.27. Started on nadolol for esophageal varices. Transfused and Hgb on discharge 8.3. EGD .11.26: - Grade II esophageal varices. - Portal hypertensive gastropathy. - Four bleeding angiodysplastic lesions in the duodenum. Treated with a heater probe. - Two angiodysplastic lesions in the jejunum. Treated with a heater probe. - No specimens collected. CT abd/pelvis .10.29: Ascites. Findings suggestive of cirrhosis of the liver with evidence of splenomegaly. Sigmoid diverticulosis. OV 4.25 Pt feeling much better since her hospitalization. SHe is no longer having any headaches or SOB. ROS Const Constitutional: No fatigue, fever(s) or weight change ENT ENT: No difficulty swallowing Gastro GI: Positive for abdominal pain; No belching, bloating, change in bowel habits, change in stool character, coffee ground emesis, constipation, cramping, diarrhea, heartburn, difficulty swallowing, feeling full early, excessive flatus, incontinent of stools, Vomiting blood/hematemesis, Blood in stool, loose stools, Black,tarry stools, nausea/dyspepsia, pain with swallowing, vomiting or other Musc Musculoskeletal: Positive for muscle cramps and leg pain at night; No joint pain Skin Skin: Positive for dry skin, itchy eyes and rash; No yellowing of the eye Psych Psychiatric: No anxiety and No depression Endo Endocrine: No fatigue or weight change Aller/Imm Allergy/Immunologic: Positive for itchy eyes Piero/Lymp Hematologic/Lymphatic: Positive for easy bruising; No easy bleeding Exam Const General: cooperative and comfortable (more content not included)... Normal [facility] Glomerular filtration rate ( GFR) estimation/1.73 sq m using serum, plasma, or whole bOrdered By: Jolanta Paz on 12-11-2024 GFR/1.73 sq M.predicted among non-blacks MDRD (S/P/Bld) [Vol rate/Area] 98 mL/min/{1.73_m2} >60 [facility] Comment on above: mL/min/1.73m2 CKD-EP I Creatinine Equation (2020) Hematocrit Auto (Bld) [Volum e fraction]Ordered By: Jolanta Paz on 12-11-2024 Hematocrit (Bld) [Volume fraction] 28.0 % Low 37-47 [facility] Hemoglobin A1con 12-11-2024 HbA1c (Bld) [Mass fraction] 5.1 % Low <=5.6 [facility] Comment on above: Performed By: #### L 100.0100, L3300.0700, L300.3900, L501.6710, L500.4050, L503.5510, L101.9900 #### [facility] [address] [place], [place] [address]. [place], [address] Hemoglobin A1c percentageOrd ered By: Jolanta Paz on 12-11-2024 HbA1c (Bld) [Mass fraction] 5.1 % Low >5.7 [facility] Hemoglobin measurementOrdere d By: Jolanta Paz on 12-11-2024 Hemoglobin (Bld) [Mass/Vol] 8.4 g/dL Low 12.0-15.0 [facility] Hypochromatic red blood cell detectionOrdered By: Jolanta Paz on 12-11-2024 Hypochromia Ql (Bld) 1+ [facility] Hypochromia Ql (Bld)Ordered By: Jolanta Paz on 12-11-2024 Hypochromasia 1+ [facility] Immature granulocytes/100 WB C Auto (Bld)Ordered By: Jolanta Paz on 12-11-2024 Immature granulocytes/100 WBC (Bld) 0.300 % 0.0-0.9 [facility] Comment on above: IG% - Immature Granu locytes (promyelocytes, myelocytes and metamyelocytes) > 1% indicates that a LEFT SHIFT is Present. International normalized rat io (INR) calculationOrdered By: Jolanta Paz on 12-11-2024 INR Coag (Bld) [Relative time] 1.5 {INR} [facility] Sara-1 antibody assayOrdered B y: Jolanta Paz on 12-11-2024 SARA-1 Antibody <0.2 AI 0.0-0.9 [facility] Comment on above: Previous reported re sult: TNP AIEdited by: MOHIT on 12/12/24:1308 AMENDED REPORT 12/12/24 1308 ANTI-SARA previously reported as: Test not performed Laboratory - Chemistry and C hemistry - challengeOrdered By: Jolanta Paz on 12-11-2024 AST [Catalytic activity/Vol] 45 U/L High <32 [facility] Lymphocytes Auto (Unsp spec) [#/Vol]Ordered By: Jolanta Paz on 12-11-2024 Lymphocytes (Bld) [#/Vol] 1.03 10*3/uL 0.83-4.5 1 [facility] Lymphocytes/100 WBC Auto (Un sp spec)Ordered By: Jolanta Paz on 12-11-2024 Lymphocytes/100 WBC (Bld) 27.5 % 19-41 [facility] MCV (mean corpuscular volume ) determinationOrdered By: Jolanta Paz on 12-11-2024 MCV (RBC) [Entitic vol] 73.5 fL Low 81-99 [facility] Manual differential comment Braxton (Bld) [Interp]Ordered By: Jolanta Paz on 12-11-2024 Differential Comment S [facility] Mean corpuscular hemoglobin (MCH) determinationOrdered By: Jolanta Paz on 12-11-2024 MCH (RBC) [Entitic mass] 22.0 pg Low 27.0-32.0 [facility] Mean corpuscular hemoglobin concentration (MCHC) determinationOrdered By: Jolanta Paz on 12-11-2024 MCHC (RBC) [Mass/Vol] 30.0 g/dL Low 32-36 [facility] Mean platelet volume determi nationOrdered By: Jolanta Paz on 12-11-2024 Platelet mean volume (Bld) [Entitic vol] 10.7 fL 6.2-12.0 [facility] Mitochondria Ab Ql (S)Ordere d By: Jolanta Paz on 12-11-2024 Anti-Mitochondrial Antibody <20.0 Units 0.0-20.0 [facility] Comment on above: Negative 0.0 - 20.0 Equivocal 20.1 - 24.9 Positive >24.9Mitochondrial (M2) Antibodies are found in 90-96% ofpatients with primary biliary cirrhosis.Performed at: [facility] [id number] Director: Chance Geronimo PhD, Phone: [phone] Monocyte percentageOrdered B y: Jolanta Paz on 12-11-2024 Monocytes/100 WBC (Bld) 12.6 % High 0-10 [facility] Neutrophil cytoplasmic Ab.cl assic Qn (S)Ordered By: Jolanta Paz on 12-11-2024 Cytoplasmic ANCA (c-ANCA) Antibody <1:20 titer Neg:<1:20 [facility] Neutrophil cytoplasmic Ab.pe rinuclear IF (S) [Titer]Ordered By: Jolanta Paz on 12-11-2024 Perinuclear ANCA (p-ANCA) Antibody <1:20 titer Neg:<1:20 [facility] Comment on above: The presence of posi tive fluorescence exhibiting P-ANCA orC-ANCA patterns alone is not specific for the diagnosis ofWegener's Granulomatosis (WG) or microscopic polyangiitis.Decisions about treatment should not be based solely onANCA IFA results. The [employer] Consensusrecommends follow up testing of positive sera with both WA-3 and MPO-ANCA enzyme immunoassays. As many as 5% serumsamples are positive only by EIA. Ref. AM J Clin [id number];111:507-513. Neutrophil percentageOrdered By: Jolanta Paz on 12-11-2024 Neutrophils/100 WBC (Bld) 54.0 % 47-70 [facility] Nucleated red blood cell per centageOrdered By: Jolanta Paz on 12-11-2024 Nucleated RBC/100 WBC (Bld) [Ratio] 0 % 0-5 [facility] Platelet countOrdered By: Laurence Paz on 12-11-2024 Platelets (Bld) [#/Vol] 109 10*3/uL Low 150-450 [facility] Potassium (Unsp spec) [Mass/ Vol]Ordered By: Jolanta Paz on 12-11-2024 Potassium [Moles/Vol] 4.0 mmol/L 3.3-5.1 [facility] Potassium measurement (mass/ volume)Ordered By: Jolanta Paz on 12-11-2024 Potassium (Unsp spec) [Mass/Vol] 4.0 mmol/L 3.3-5.1 [facility] Prothrombin Time w/INRon INR Coag (PPP) [Relative time] 1.5 {INR} Normal [facility] Comment on above: Performed By: #### L 100.0100, L3300.0700, L300.3900, L501.6710, L500.4050, L503.5510, L101.9900 #### [facility] [address] [place], [address] PT Coag (PPP) [Time] 17.9 s High 11.7-14.9 [facility] Comment on above: Performed By: #### L 100.0100, L3300.0700, L300.3900, L501.6710, L500.4050, L503.5510, L101.9900 #### [facility] [address] [place], [address] Prothrombin timeOrdered By: Jolanta Paz on 12-11-2024 PT Coag (PPP) [Time] 17.9 s High 11.7-14.9 [facility] RBC Auto (Bld) [#/Vol]Ordere d By: Jolanta Paz on 12-11-2024 RBC (Bld) [#/Vol] 3.81 10*6/uL Low 4.2-5.4 [facility] PACKER INSPECTOR abOrdered By: Jolanta raysov on 12-11-2024 PACKER INSPECTOR Antibody 0.3 AI 0.0-0.9 [facility] Comment on above: Previous reported re sult: TNP AIEdited by: MOHIT on 12/12/24:1308 AMENDED REPORT 12/12/24 1308 PACKER INSPECTOR Ab previously reported as: Test not performed SCL-70 extractable nuclear A b Qn (S)Ordered By: Jolanta Paz on 12-11-2024 Scl-70 (Scleroderma) Antibody <0.2 AI 0.0-0.9 [facility] Comment on above: Previous reported re sult: TNP AIEdited by: MOHIT on 12/12/24:1308 AMENDED REPORT 12/12/24 1308 ANTISCLER previously reported as: Test not performed SS-A IgG antibody assayOrder ed By: Jolanta Paz on 12-11-2024 SS-A/Ro IgG Antibody < 0.2 AI 0.0-0.9 [facility] Comment on above: Previous reported re sult: TNP AIEdited by: MOHIT on 12/12/24:1308 AMENDED REPORT 12/12/24 1308 Anti-SS-A previously reported as: Test not performed SS-B IgG antibody assayOrder ed By: Jolanta Paz on 12-11-2024 SS-B/La IgG Antibody < 0.2 AI 0.0-0.9 [facility] Comment on above: Previous reported re sult: TNP AIEdited by: MOHIT on 12/12/24:1308 AMENDED REPORT 12/12/24 1308 Anti-SS-B previously reported as: Test not performed Serum DNA double strand anti body assay (units/volume)Ordered By: Jolanta Paz on 04-09-2025 DNA double strand Ab Qn (S) [IU]/mL 0-9 [facility] Comment on above: Negative <5 Equivoca l 5 - 9 Positive >9Previous reported result: TNP IU/mLEdited by: MOHIT on 12/12/24:1308 AMENDED REPORT 12/12/24 130 dsDNA AB previously reported as: Test not performed Serum Scl-70 antibody assay (units/volume)Ordered By: Jolanta Paz on 12-11-2024 SCL-70 extractable nuclear Ab Qn (S) <0.2 AI 0.0-0.9 [facility] Comment on above: Previous reported re sult: TNP AIEdited by: MOHIT on 12/12/24:1308 AMENDED REPORT 12/12/241307 ANTISCLER previously reported as: Test not performed Serum classic neutrophil cyt oplasmic antibody assay (units/volume)Ordered By: Jolanta Paz on 12-11-2024 Neutrophil cytoplasmic Ab.classic Qn (S) <1:20 titer Neg:<1:20 [facility] Serum creatinine measurement (mass/volume)Ordered By: Jolanta Paz on 12-11-2024 Creatinine [Mass/Vol] 0.58 mg/dL Low 0.70-1.20 [facility] Serum globulin measurementOr dered By: Jolanta Paz on 12-11-2024 Globulin (S) [Mass/Vol] 2.8 g/dL 2.2-4.2 [facility] Serum glucose measurement (m ass/volume)Ordered By: Jolanta Paz on 12-11-2024 Glucose [Mass/Vol] 105 mg/dL High 70-99 [facility] Serum mitochondria antibody detectionOrdered By: Jolanta Paz on 12-11-2024 Mitochondria Ab Ql (S) <20.0 Units 0.0-20.0 [facility] Comment on above: Negative 0.0 - 20.0 Equivocal 20.1 - 24.9 Positive >24.9Mitochondrial (M2) Antibodies are found in 90-96% ofpatients with primary biliary cirrhosis.Performed at: [address] [id number] Director: Chance Geronimo PhD, Phone: [phone] Serum or plasma actin IgG an tibody assay (units/volume)Ordered By: Jolanta Paz on 12-11-2024 Actin IgG Qn 12 Units 0-19 [facility] Comment on above: Negative 0 - 19 Weak positive 20 - 30 Moderate to strong positive >30 Actin Antibodies are found in 52-85% of patients with autoimmune hepatitis or chronic active hepatitis and in 22% of patients with primary biliary cirrhosis. Serum or plasma alanine morocho otransferase (ALT) measurementOrdered By: Jolanta Paz on 12-11-2024 ALT [Catalytic activity/Vol] 19 U/L <35 [facility] Serum or plasma albumin harmony urement (mass/volume)Ordered By: Jolanta Paz on 12-11-2024 Albumin [Mass/Vol] 3.3 g/dL Low 3.4-4.8 [facility] Serum or plasma albumin/glob ulin mass ratioOrdered By: Jolanta Paz on 12-11-2024 Albumin/Globulin [Mass ratio] 1.2 {ratio} 0.9-2.4 [facility] Serum or plasma alkaline chacha sphatase measurementOrdered By: Jolanta Paz on 12-11-2024 ALP [Catalytic activity/Vol] 139 U/L High 35-104 [facility] Serum or plasma angiotensin converting enzyme measurement (enzymatic activity/volume)Ordered By: Jolanta Paz on 12-11-2024 Angiotensin converting enzyme [Catalytic activity/Vol] 102 U/L High 14-82 [facility] Serum or plasma calcium harmony urement (mass/volume)Ordered By: Jolanta Paz on 12-11-2024 Calcium [Mass/Vol] 8.5 mg/dL 7.6-11.0 [facility] Serum or plasma urea nitroge n measurement (mass/volume)Ordered By: Jolanta Paz on 12-11-2024 Urea nitrogen [Mass/Vol] 8 mg/dL 4-19 [facility] Serum perinuclear neutrophil cytoplasmic antibody titer by immunofluorescenceOrdered By: Jolanta Paz on 12-11-2024 Neutrophil cytoplasmic Ab.perinuclear IF (S) [Titer] <1:20 titer Neg:<1:20 [facility] Comment on above: The presence of posi tive fluorescence exhibiting P-ANCA orC-ANCA patterns alone is not specific for the diagnosis ofWegener's Granulomatosis (WG) or microscopic polyangiitis.Decisions about treatment should not be based solely onANCA IFA results. The [employer] Consensusrecommends follow up testing of positive sera with both WA-3 and MPO-ANCA enzyme immunoassays. As many as 5% serumsamples are positive only by EIA. Ref. AM J Clin [id number];111:507-513. Harvey antibody assayOrdered By: Jolanta Paz on 12-11-2024 SM Antibody <0.2 AI 0.0-0.9 [facility] Comment on above: Previous reported re sult: TNP AIEdited by: MOHIT on 12/12/24:1308 AMENDED REPORT 12/12/24 1308 DEBBIE Ab previously reported as: Test not performed Sodium levelOrdered By: Delores Paz on 12-11-2024 Sodium [Moles/Vol] 138 mmol/L 133-145 [facility] Total proteinOrdered By: Madeleine Paz on 12-11-2024 Protein [Mass/Vol] 6.1 g/dL 5.9-8.4 [facility] White blood cell (WBC) count Ordered By: Jolanta Paz on 12-11-2024 WBC (Bld) [#/Vol] 3.7 10*3/uL Low 4.4-11.0 [facility] CBC W/Diff, Automatedon 04-0 PATH REV N/A Normal [facility] Comment on above: Result Comment: AMENDED REPORT 12/08/24 1437 PATH REV previously reported as: January foll Performed By: #### L 100.0100, L3300.0700, L300.3900, L501.6710, L500.4050, L503.5510, L101.9900 #### [facility] [address] [place], [address] Basic Metabolic Profile (BMP )on 12-07-2024 BUN Normal 4-19 [facility] Comment on above: Result Comment: Canc elled via OM: Order cancelled - Patient discharged Performed By: #### L 500.2500, L100.0100 #### [facility] [address] [place], [address] BUN/CRE Normal 10-20 [facility] Comment on above: Result Comment: Canc elled via OM: Order cancelled - Patient discharged Performed By: #### L 500.2500, L100.0100 #### [facility] [address] [place], [address] Calcium Normal 7.6-11.0 [facility] Comment on above: Result Comment: Canc elled via OM: Order cancelled - Patient discharged Performed By: #### L 500.2500, L100.0100 #### [facility] [address] [place], [address] CL Normal 98-108 [facility] Comment on above: Result Comment: Canc elled via OM: Order cancelled - Patient discharged Performed By: #### L 500.2500, L100.0100 #### [facility] [address] [place], [address] CO2 Normal 21.0-32.0 [facility] Comment on above: Result Comment: Canc elled via OM: Order cancelled - Patient discharged Performed By: #### L 500.2500, L100.0100 #### [facility] [address] [place], [address] CREAT,SERUM Normal 0.70-1.20 [facility] Comment on above: Result Comment: Canc elled via OM: Order cancelled - Patient discharged Performed By: #### L 500.2500, L100.0100 #### [facility] [address] [place], [address] eGFR Normal >60 [facility] Comment on above: Result Comment: Canc elled via OM: Order cancelled - Patient discharged Performed By: #### L 500.2500, L100.0100 #### [facility] [address] [place], [address] GAP Normal 5-15 [facility] Comment on above: Result Comment: Canc elled via OM: Order cancelled - Patient discharged Performed By: #### L 500.2500, L100.0100 #### [facility] [address] [place], [address] GLU Normal 70-99 [facility] Comment on above: Result Comment: Canc elled via OM: Order cancelled - Patient discharged Performed By: #### L 500.2500, L100.0100 #### [facility] [address] [place], [address] Potassium Normal 3.3-5.1 [facility] Comment on above: Result Comment: Canc elled via OM: Order cancelled - Patient discharged Performed By: #### L 500.2500, L100.0100 #### [facility] [address] [place], [address] Basic Metabolic Profile (BMP) Normal 133-145 [facility] Comment on above: Result Comment: Canc elled via OM: Order cancelled - Patient discharged Performed By: #### L 500.2500, L100.0100 #### [facility] [address] [place], [address] CBC W/Diff, Automatedon 04-0 Absolute Neut Normal 2.0-7.7 [facility] Comment on above: Result Comment: Canc elled via OM: Order cancelled - Patient discharged Performed By: #### L 500.2500, L100.0100 #### [facility] [address] [place], [address] HCT Normal 37-47 [facility] Comment on above: Result Comment: Canc elled via OM: Order cancelled - Patient discharged Performed By: #### L 500.2500, L100.0100 #### [facility] [address] [place], [address] HGB Normal 12.0-15.0 [facility] Comment on above: Result Comment: Canc elled via OM: Order cancelled - Patient discharged Performed By: #### L 500.2500, L100.0100 #### [facility] [address] [place], [address] MCH Normal 27.0-32.0 [facility] Comment on above: Result Comment: Canc elled via OM: Order cancelled - Patient discharged Performed By: #### L 500.2500, L100.0100 #### [facility] [address] [place], [address] MCHC Normal 32-36 [facility] Comment on above: Result Comment: Canc elled via OM: Order cancelled - Patient discharged Performed By: #### L 500.2500, L100.0100 #### [facility] [address] [place], [address] MCV Normal 81-99 [facility] Comment on above: Result Comment: Canc elled via OM: Order cancelled - Patient discharged Performed By: #### L 500.2500, L100.0100 #### [facility] [address] [place], [address] NEUT% Normal 47-70 [facility] Comment on above: Result Comment: Canc elled via OM: Order cancelled - Patient discharged Performed By: #### L 500.2500, L100.0100 #### [facility] [address] [place], [address] PLT Normal 150-450 [facility] Comment on above: Result Comment: Canc elled via OM: Order cancelled - Patient discharged Performed By: #### L 500.2500, L100.0100 #### [facility] [address] [place], [address] RBC Normal 4.2-5.4 [facility] Comment on above: Result Comment: Canc elled via OM: Order cancelled - Patient discharged Performed By: #### L 500.2500, L100.0100 #### [facility] [address] [place], [address] RDW CV Normal 11.6-14.6 [facility] Comment on above: Result Comment: Canc elled via OM: Order cancelled - Patient discharged Performed By: #### L 500.2500, L100.0100 #### [facility] [address] [place], [address] RDW SD Normal 35.1-43.9 [facility] Comment on above: Result Comment: Canc elled via OM: Order cancelled - Patient discharged Performed By: #### L 500.2500, L100.0100 #### [facility] [address] [place], [address] WBC Normal 4.4-11.0 [facility] Comment on above: Result Comment: Canc elled via OM: Order cancelled - Patient discharged Performed By: #### L 500.2500, L100.0100 #### [facility] [address] [place], [address] Absolute lymphocyte countOrd ered By: Hamzah Aguirre on 12-06-2024 Lymphocytes Auto (Unsp spec) [#/Vol] 1.19 10*3/uL 0.83-4.51 [facility] Absolute neutrophil countOrd ered By: Hamzah Aguirre on 12-06-2024 Neutrophils (Bld) [#/Vol] 2.0 10*3/uL 2.0-7.7 [facility] Anion gap in Serum or Plasma Ordered By: Hamzah Aguirre on 12-06-2024 Anion gap [Moles/Vol] 9 mmol/L 5-15 [facility] Automated lymphocyte count a s percentage of total leukocytesOrdered By: Hamzah Aguirre on 12-06-2024 Lymphocytes/100 WBC Auto (Unsp spec) 30.3 % 19-41 [facility] BUN/creatinine ratioOrdered By: Hamzah Aguirre on 12-06-2024 Urea nitrogen/Creatinine [Mass ratio] 11.4 mg/mg 06-23 [facility] Basic Metabolic Profile (BMP )on 12-06-2024 BUN/CRE 11.4 RATIO Normal 06-23 [facility] Comment on above: Performed By: #### L 100.0100, L3300.0700, L300.3900, L501.6710, L500.4050, L503.5510, L101.9900 #### [facility] [address] [place], [address] Calcium [Mass/Vol] 8.5 mg/dL Normal 7.6-11.0 [facility] Comment on above: Performed By: #### L 100.0100, L3300.0700, L300.3900, L501.6710, L500.4050, L503.5510, L101.9900 #### [facility] [address] [place], [address] Chloride [Moles/Vol] 109 mmol/L High 98-108 [facility] Comment on above: Performed By: #### L 100.0100, L3300.0700, L300.3900, L501.6710, L500.4050, L503.5510, L101.9900 #### [facility] [address] [place], [address] CO2 [Moles/Vol] 20.3 mmol/L Low 21.0-32.0 [facility] Comment on above: Performed By: #### L 100.0100, L3300.0700, L300.3900, L501.6710, L500.4050, L503.5510, L101.9900 #### [facility] [address] [place], [address] Creatinine [Mass/Vol] 0.63 mg/dL Low 0.70-1.20 [facility] Comment on above: Performed By: #### L 100.0100, L3300.0700, L300.3900, L501.6710, L500.4050, L503.5510, L101.9900 #### [facility] [address] [place], [address] ECRCL 81.20 ml/min Normal 50-250 [facility] Comment on above: Performed By: #### L 100.0100, L3300.0700, L300.3900, L501.6710, L500.4050, L503.5510, L101.9900 #### [facility] [address] [place], [address] GAP 9 Normal 5-15 [facility] Comment on above: Performed By: #### L 100.0100, L3300.0700, L300.3900, L501.6710, L500.4050, L503.5510, L101.9900 #### [facility] [address] [place], [address] GFR/1.73 sq M.predicted among non-blacks MDRD (S/P/Bld) [Vol rate/Area] 96 mL/min/{1.73_m2} Normal >60 [facility] Comment on above: Result Comment: mL/m in/1.73m2 CKD-EPI Creatinine Equation (2020) Performed By: #### L 100.0100, L3300.0700, L300.3900, L501.6710, L500.4050, L503.5510, L101.9900 #### [facility] [address] [place], [address] Glucose [Mass/Vol] 95 mg/dL Normal 70-99 [facility] Comment on above: Performed By: #### L 100.0100, L3300.0700, L300.3900, L501.6710, L500.4050, L503.5510, L101.9900 #### [facility] [address] [place], [address] Potassium [Moles/Vol] 4.1 mmol/L Normal 3.3-5.1 [facility] Comment on above: Performed By: #### L 100.0100, L3300.0700, L300.3900, L501.6710, L500.4050, L503.5510, L101.9900 #### [facility] [address] [place], [address] Sodium [Moles/Vol] 139 mmol/L Normal 133-145 [facility] Comment on above: Performed By: #### L 100.0100, L3300.0700, L300.3900, L501.6710, L500.4050, L503.5510, L101.9900 #### [facility] [address] [place], [address] Urea nitrogen [Mass/Vol] 7 mg/dL Normal 4-19 [facility] Comment on above: Performed By: #### L 100.0100, L3300.0700, L300.3900, L501.6710, L500.4050, L503.5510, L101.9900 #### [facility] [address] [place], [address] Basophil percentageOrdered B y: Hamzah Aguirre on 12-06-2024 Basophils/100 WBC (Bld) 1.0 % 0-1 [facility] Blood polychromasia detectio n by light microscopyOrdered By: Hamzah Aguirre on 12-06-2024 Polychromasia LM Ql (Bld) 1+ [facility] CBC W/Diff, Automatedon Anisocytosis Ql (Bld) 2+ Normal [facility] Comment on above: Performed By: #### L 100.0100, L3300.0700, L300.3900, L501.6710, L500.4050, L503.5510, L101.9900 #### [facility] [address] [place], [address] OVALOCYTE 1+ Normal [facility] Comment on above: Performed By: #### L 100.0100, L3300.0700, L300.3900, L501.6710, L500.4050, L503.5510, L101.9900 #### [facility] [address] [place], [address] PLT EST SLT DEC Normal ADEQ [facility] Comment on above: Performed By: #### L 100.0100, L3300.0700, L300.3900, L501.6710, L500.4050, L503.5510, L101.9900 #### [facility] [address] [place], [address] POLYCHROMASIA 1+ Normal [facility] Comment on above: Performed By: #### L 100.0100, L3300.0700, L300.3900, L501.6710, L500.4050, L503.5510, L101.9900 #### [facility] [address] [place], [address] Carbon dioxide, total [Moles /volume] in Central venous bloodOrdered By: Hamzah Aguirre on 12-06-2024 CO2 [Moles/Vol] 20.3 mmol/L Low 21.0-32.0 [facility] Chloride assayOrdered By: Thierno Aguirre on 12-06-2024 Chloride [Moles/Vol] 109 mmol/L High 98-108 [facility] Eosinophil percentageOrdered By: Hamzah Aguirre on 12-06-2024 Eosinophils/100 WBC (Bld) 4.3 % 0-5 [facility] Erythrocyte distribution wid th (RBC) [Ratio]Ordered By: Hamzah Aguirre on 12-06-2024 Erythrocyte distribution width (RBC) [Entitic vol] 56.1 fL High 35.1-43.9 [facility] Erythrocyte distribution wid th ratioOrdered By: Hamzah Aguirre on 12-06-2024 Erythrocyte distribution width (RBC) [Ratio] 21.5 % High 11.6-14.6 [facility] Erythrocyte distribution wid th standard deviationOrdered By: Hamzah Aguirre on 12-06-2024 Erythrocyte distribution width (RBC) [Ratio] 56.1 fl High 35.1-43.9 [facility] Estimation of creatinine jose aranceOrdered By: Hamzah Aguirre on 12-06-2024 Estimated Creatinine Clearance Calc 81.20 ml/min 50-250 [facility] GFR/1.73 sq M.predicted yadi g non-blacks MDRD (S/P/Bld) [Vol rate/Area]Ordered By: Hamzah Aguirre on 12-06-2024 Estimated GFR (MDRD) Non-Af Amer 96 >60 [facility] Comment on above: mL/min/1.73m2 CKD-EP I Creatinine Equation (2020) Glomerular filtration rate ( GFR) estimation/1.73 sq m using serum, plasma, or whole bOrdered By: Hamzah Aguirre on 12-06-2024 GFR/1.73 sq M.predicted among non-blacks MDRD (S/P/Bld) [Vol rate/Area] 96 mL/min/{1.73_m2} >60 [facility] Comment on above: mL/min/1.73m2 CKD-EP I Creatinine Equation (2020) Hematocrit Auto (Bld) [Volum e fraction]Ordered By: Hamzah Aguirre on 12-06-2024 Hematocrit (Bld) [Volume fraction] 28.0 % Low 37-47 [facility] Hemoglobin measurementOrdere d By: Hamzah Aguirre on 12-06-2024 Hemoglobin (Bld) [Mass/Vol] 8.3 g/dL Low 12.0-15.0 [facility] Immature granulocytes/100 WB C Auto (Bld)Ordered By: Hamzah Aguirre on 12-06-2024 Immature granulocytes/100 WBC (Bld) 0.300 % 0.0-0.9 [facility] Comment on above: IG% - Immature Granu locytes (promyelocytes, myelocytes and metamyelocytes) > 1% indicates that a LEFT SHIFT is Present. Laboratory - Hematology and Cell countsOrdered By: Hamzah Aguirre on 12-06-2024 Anisocytosis Ql (Bld) 2+ [facility] Lymphocytes Auto (Unsp spec) [#/Vol]Ordered By: Hamzah Aguirre on 12-06-2024 Lymphocytes (Bld) [#/Vol] 1.19 10*3/uL 0.83-4.5 1 [facility] Lymphocytes/100 WBC Auto (Un sp spec)Ordered By: Hamzah Agurire on 12-06-2024 Lymphocytes/100 WBC (Bld) 30.3 % 19-41 [facility] MCV (mean corpuscular volume ) determinationOrdered By: Hamzah Aguirre on 12-06-2024 MCV (RBC) [Entitic vol] 73.7 fL Low 81-99 [facility] Mean corpuscular hemoglobin (MCH) determinationOrdered By: Hamzah Aguirre on 12-06-2024 MCH (RBC) [Entitic mass] 21.8 pg Low 27.0-32.0 [facility] Mean corpuscular hemoglobin concentration (MCHC) determinationOrdered By: Hamzah Aguirre on 12-06-2024 MCHC (RBC) [Mass/Vol] 29.6 g/dL Low 32-36 [facility] Mean platelet volume determi nationOrdered By: Hamzah Aguirre on 12-06-2024 Platelet mean volume (Bld) [Entitic vol] 10.7 fL 6.2-12.0 [facility] Monocyte percentageOrdered B y: Hamzah Aguirre on 12-06-2024 Monocytes/100 WBC (Bld) 14.0 % High 0-10 [facility] Neutrophil percentageOrdered By: Hamzah Aguirre on 12-06-2024 Neutrophils/100 WBC (Bld) 50.1 % 47-70 [facility] Nucleated red blood cell per centageOrdered By: Hamzah Aguirre on 12-06-2024 Nucleated RBC/100 WBC (Bld) [Ratio] 0 % 0-5 [facility] Ovalocyte detectionOrdered B y: Hamzah Aguirre on 12-06-2024 Ovalocytes LM Ql (Bld) 1+ [facility] Ovalocytes LM Ql (Bld)Ordere d By: Hamzah Aguirre on 04-04-2025 Ovalocytes 1+ [facility] Platelet countOrdered By: Thierno Aguirre on 12-06-2024 Platelets (Bld) [#/Vol] 115 10*3/uL Low 150-450 [facility] Platelet estimateOrdered By: Hamzah Aguirre on 12-06-2024 Platelets LM Ql (Bld) SLT DEC ADEQ [facility] Platelets LM Ql (Bld)Ordered By: Hamzah Aguirre on 12-06-2024 Platelet Estimate SLT DEC ADEQ [facility] Polychromasia LM Ql (Bld)Ord ered By: Hamzah Aguirre on 12-06-2024 Polychromasia 1+ [facility] Potassium (Unsp spec) [Mass/ Vol]Ordered By: Hamzah Aguirre on 12-06-2024 Potassium [Moles/Vol] 4.1 mmol/L 3.3-5.1 [facility] Potassium measurement (mass/ volume)Ordered By: Hamzah Aguirre on 12-06-2024 Potassium (Unsp spec) [Mass/Vol] 4.1 mmol/L 3.3-5.1 [facility] RBC Auto (Bld) [#/Vol]Ordere d By: Hamzah Aguirre on 12-06-2024 RBC (Bld) [#/Vol] 3.80 10*6/uL Low 4.2-5.4 [facility] Serum creatinine measurement (mass/volume)Ordered By: Hamzah Aguirre on 12-06-2024 Creatinine [Mass/Vol] 0.63 mg/dL Low 0.70-1.20 [facility] Serum glucose measurement (m ass/volume)Ordered By: Hamzah Aguirre on 12-06-2024 Glucose [Mass/Vol] 95 mg/dL 70-99 [facility] Serum or plasma calcium harmony urement (mass/volume)Ordered By: Hamzah Aguirre on 12-06-2024 Calcium [Mass/Vol] 8.5 mg/dL 7.6-11.0 [facility] Serum or plasma urea nitroge n measurement (mass/volume)Ordered By: Hamzah Aguirre on 12-06-2024 Urea nitrogen [Mass/Vol] 7 mg/dL 4-19 [facility] Sodium levelOrdered By: Meño Aguirre on 12-06-2024 Sodium [Moles/Vol] 139 mmol/L 133-145 [facility] White blood cell (WBC) count Ordered By: Hamzah Aguirre on 12-06-2024 WBC (Bld) [#/Vol] 3.9 10*3/uL Low 4.4-11.0 [facility] 12 Lead EKGon 12-05-2024 12 Lead EKG [facility] Cardiovascular Services [address] [place] [address] 12 Lead EKG 12/05/24 1345 MR#: [id number] Acct: [id number] Name: DIAN JANE Rep #: [id number] : 1955 69 From: Harpal Cruz MD Attending Dr: Dr. Hamzah Aguirre MD Status: DIS IN Ordering Dr: Hamzah Aguirre MD Date: 12/05/24 Location: [facility] Sex: F C Admitted: 12/04/24 Test Reason : SOB Blood Pressure : */* mmHG Vent. Rate : 79 BPM Atrial Rate : 79 BPM P-R Int : 174 ms QRS Dur : 82 ms QT Int : 394 ms P-R-T Axes : 10 49 37 degrees QTcB Int : 451 ms Normal sinus rhythm Normal ECG When compared with ECG of 04-Dec-2024 09:49, No significant change was found Confirmed by HARPAL CRUZ MD ([id number]), commercial production editor ADAN RODRIGUEZ ([id number]) on 12/06/2024 1:21:46 PM Referred By: Confirmed By: HARPAL CRUZ MD 12/06/24 1321 Date Harpal Cruz MD CC: JU Ritchie; Dr. Hamzah Aguirre MD Signed Normal [facility] 12 Lead EKG [facility] Cardiovascular Services [address] [place] [address] 12 Lead EKG 12/04/24 0949 MR#: [id number] Acct: [id number] Name: BUCKDIAN GARCIA Rep #: [id number] : 1955 69 From: Jose Vail MD Attending Dr: Dr. Hamzah Aguirre MD Status: ADM IN Ordering Dr: Simba Her MD Date: 12/05/24 Location: [facility] Sex: F C Admitted: 12/04/24 Test Reason : CP Blood Pressure : */* mmHG Vent. Rate : 97 BPM Atrial Rate : 97 BPM P-R Int : 180 ms QRS Dur : 86 ms QT Int : 352 ms P-R-T Axes : 23 53 39 degrees QTcB Int : 447 ms Normal sinus rhythm minor Nonspecific ST abnormality Borderline Confirmed by Jose Vail ([id number]), commercial production editor ADAN RODRIGUEZ ([id number]) on 12/05/2024 7:56:14 AM Referred By: Confirmed By: Jose Vail 12/05/24 0756 Date Jose Vail MD CC: PATIENT RELATIONS SPECIALIST-Guille Ritchie; Dr. Simba Her MD; Dr. Hamzah Aguirre MD Signed Normal [facility] AFP, Tumor Markeron 12-06-19 AFP TUMOR PALMA 9.4 ng/mL High 0.0-9.2 [facility] Comment on above: Order Comment: N Result Comment: [employer] [employer] Electrochemiluminescence Immunoassay (ECLIA) Values obtained with different assay methods or kits cannot be used interchangeably. Results cannot be interpreted as absolute evidence of the presence or absence of malignant disease. This test is not interpretable in females. Performed at: [address] [id number] [employer]: Chance Geronimo PhD, Phone: [phone] Performed By: #### L 100.0100, L3300.0700, L300.3900, L501.6710, L500.4050, L503.5510, L101.9900 #### [facility] Laboratory [address] [place], [address] Absolute neutrophil countOrd ered By: Hamzah Aguirre on 04-03-2025 Neutrophils (Bld) [#/Vol] 1.3 10*3/uL Low 2.0-7.7 [facility] Activated partial thrombopla stin time (aPTT) in platelet poor plasma by coagulation aOrdered By: Sibma Her on 12-05-2024 aPTT Coag (PPP) [Time] 33.1 s 24.1-36.2 [facility] Anion gap in Serum or Plasma Ordered By: Hamzah Aguirre on 12-05-2024 Anion gap [Moles/Vol] 9 mmol/L 01-16 [facility] BUN/creatinine ratioOrdered By: Hamzah Aguirre on 12-05-2024 Urea nitrogen/Creatinine [Mass ratio] 10.8 mg/mg 06-23 [facility] Basic Metabolic Profile (BMP )on 12-05-2024 BUN/CRE 10.8 RATIO Normal 06-23 [facility] Comment on above: Performed By: #### L 100.0100, L3300.0700, L300.3900, L501.6710, L500.4050, L503.5510, L101.9900 #### [facility] Laboratory [address] [place], [address] Calcium [Mass/Vol] 8.4 mg/dL Normal 7.6-11.0 [facility] Comment on above: Performed By: #### L 100.0100, L3300.0700, L300.3900, L501.6710, L500.4050, L503.5510, L101.9900 #### [facility] [address] [place], [address] Chloride [Moles/Vol] 111 mmol/L High 98-108 [facility] Comment on above: Performed By: #### L 100.0100, L3300.0700, L300.3900, L501.6710, L500.4050, L503.5510, L101.9900 #### [facility] [address] [place], [address] CO2 [Moles/Vol] 19.6 mmol/L Low 21.0-32.0 [facility] Comment on above: Performed By: #### L 100.0100, L3300.0700, L300.3900, L501.6710, L500.4050, L503.5510, L101.9900 #### [facility] [address] [place], [address] Creatinine [Mass/Vol] 0.55 mg/dL Low 0.70-1.20 [facility] Comment on above: Performed By: #### L 100.0100, L3300.0700, L300.3900, L501.6710, L500.4050, L503.5510, L101.9900 #### [facility] [address] [place], [address] ECRCL 81.20 ml/min Normal 50-250 [facility] Comment on above: Performed By: #### L 100.0100, L3300.0700, L300.3900, L501.6710, L500.4050, L503.5510, L101.9900 #### [facility] [address] [place], [address] GAP 9 Normal 5-15 [facility] Comment on above: Performed By: #### L 100.0100, L3300.0700, L300.3900, L501.6710, L500.4050, L503.5510, L101.9900 #### [facility] [address] [place], [address] GFR/1.73 sq M.predicted among non-blacks MDRD (S/P/Bld) [Vol rate/Area] 100 mL/min/{1.73_m2} Normal >60 [facility] Comment on above: Result Comment: mL/m in/1.73m2 CKD-EPI Creatinine Equation (2020) Performed By: #### L 100.0100, L3300.0700, L300.3900, L501.6710, L500.4050, L503.5510, L101.9900 #### [facility] [address] [place], [address] Glucose [Mass/Vol] 90 mg/dL Normal 70-99 [facility] Comment on above: Performed By: #### L 100.0100, L3300.0700, L300.3900, L501.6710, L500.4050, L503.5510, L101.9900 #### [facility] [address] [place], [address] Potassium [Moles/Vol] 3.7 mmol/L Normal 3.3-5.1 [facility] Comment on above: Performed By: #### L 100.0100, L3300.0700, L300.3900, L501.6710, L500.4050, L503.5510, L101.9900 #### [facility] [address] [place], [address] Sodium [Moles/Vol] 139 mmol/L Normal 133-145 [facility] Comment on above: Performed By: #### L 100.0100, L3300.0700, L300.3900, L501.6710, L500.4050, L503.5510, L101.9900 #### [facility] [address] [place], [address] Urea nitrogen [Mass/Vol] 6 mg/dL Normal 4-19 [facility] Comment on above: Performed By: #### L 100.0100, L3300.0700, L300.3900, L501.6710, L500.4050, L503.5510, L101.9900 #### [facility] [address] [place], [address] Basophil percentageOrdered B y: Hamzah Aguirre on 12-05-2024 Basophils/100 WBC (Bld) 1.1 % High 0-1 [facility] CBC W/Diff, Automatedon 04-0 Anisocytosis Ql (Bld) 1+ Normal [facility] Comment on above: Performed By: #### L 100.0100, L3300.0700, L300.3900, L501.6710, L500.4050, L503.5510, L101.9900 #### [facility] Laboratory [address] [place], [address] Carbon dioxide, total [Moles /volume] in Central venous bloodOrdered By: Hamzah Aguirre on 12-05-2024 CO2 [Moles/Vol] 19.6 mmol/L Low 21.0-32.0 [facility] Chloride assayOrdered By: Thierno Aguirre on 12-05-2024 Chloride [Moles/Vol] 111 mmol/L High 98-108 [facility] EGD Reporton 12-05-2024 EGD Report [facility] Medical Records Department [address] [place] [address] EGD Report MR#: [id number] Acct: [id number] Name: DIAN JANE Rep #: [id number] : 1955 69 From: Francisco Zaman DO PCP: JU Mishra Status:ADM IN Patient Name: Dian Jane Procedure Date: 12/05/2024 6:26 PM Date of : 1955 Age: 69 Procedure: Upper GI endoscopy Indications: Iron deficiency anemia, Recent gastrointestinal bleeding, For therapy of esophageal varices with bleeding Providers: Francisco Zaman DO Medicines: Monitored Anesthesia Care Patient Profile: This is a 69 year old female. Refer to note in patient chart for documentation of history and physical. Patient has symptoms. Her most recent colonoscopy for treatment of bleeding and EGD for treatment of bleeding. Complications: No immediate complications. Procedure: Pre-Anesthesia Assessment: - Prior to the procedure, a History and Physical was performed, and patient medications and allergies were reviewed. The patient is competent. The risks and benefits of the procedure and the sedation options and risks were discussed with the patient. All questions were answered and informed consent was obtained. Patient identification and proposed procedure were verified by the physician in the pre-procedure area. Mental Status Examination: alert and oriented. Airway Examination: normal oropharyngeal airway and neck mobility. Respiratory Examination: clear to auscultation. CV Examination: normal. Prophylactic Antibiotics: The patient does not require prophylactic antibiotics. Prior Anticoagulants: The patient has taken no anticoagulant or antiplatelet agents except for NSAID medication. ASA Grade Assessment: III - A patient with severe systemic disease. After reviewing the risks and benefits, the patient was deemed in satisfactory condition to undergo the procedure. The anesthesia plan was to use monitored anesthesia care (MAC). Immediately prior to administration of medications, the patient was re-assessed for adequacy to receive sedatives. The heart rate, respiratory rate, oxygen saturations, blood pressure, adequacy of pulmonary ventilation, and response to care were monitored throughout the procedure. The physical status of the patient was re-assessed after the procedure. After obtaining informed consent, the endoscope was passed under direct vision. Throughout the procedure, the patient's blood pressure, pulse, and oxygen saturations were monitored continuously. The Endoscope was introduced through the mouth, and advanced to the fourth part of the duodenum. Small bowel enteroscopy was deemed necessary. The upper GI endoscopy was accomplished without difficulty. The patient tolerated the procedure well. Scope In: 6:40:31 PM Scope Out: 6:47:22 PM Total Procedure Duration Time 0 hours 6 minutes 51 seconds Findings: Grade II varices were found in the middle third of the esophagus and in the lower third of the esophagus. They were 14 mm in largest diameter. Moderate portal hypertensive gastropathy was found in the entire examined stomach. Four 5 mm angiodysplastic lesions with bleeding were found in the second portion of the duodenum and in the fourth portion of the duodenum. Coagulation for hemostasis using heater probe was successful. Estimated blood loss was minimal. Two 5 mm angiodysplastic lesions with typical arborization were found in the jejunum. Coagulation for bleeding prevention using heater probe was successful. Estimated blood loss was minimal. Impression: - Grade II esophageal varices. - Portal hypertensive gastropathy. - Four bleeding angiodysplastic lesions in the duodenum. Treated with a heater probe. - Two angiodysplastic lesions in the jejunum. Treated with a heater probe. - No specimens collected. Recommendation: - [facility]. - Full liquid diet today. - Continue present medications. - Nadolol 10 mg twice daily for variceal prophylaxis - Capsule endoscopy Procedure Code(s): --- Professional --- 17809, Small intestinal endoscopy, enteroscopy beyond second portion of duodenum, not including ileum; with control of bleeding (eg, injection, bipolar cautery, unipolar cautery, laser, heater probe, stapler, plasma internet systems administrator) CPT copyright 2021 [employer]. All rights reserved. The codes documented in this report are preliminary and upon natural resource technician review may be revised to meet current compliance requirements. Francisco Zaman DO 12/05/2024 6:55:54 PM This report has been signed electronically. Number of Addenda: 0 Note Initiated On: 12/05/2024 6:26 PM 12/05/24 1855 Date Francisco Zaman DO Cosigner Signature: Date (more content not included)... Normal [facility] Electrocardiogram reportOrde red By: Jose Vail on 12-05-2024 EKG study [facility] Cardiovascular Services [address] [place] [address] 12 Lead EKG 12/04/24 0949 MR#: [id number] Acct: [id number] Name: DIAN JANE Rep #:[id number] : 1955 69 From: Jose daley MD Attending Dr: Dr. Hamzah Aguirre MD Status: ADM IN Ordering Dr: Simba Her MD Date: 12/05/24 Location: [facility] Sex: F C Admitted: 12/04/24 Test Reason : CP Blood Pressure : */* mmHG Vent. Rate : 97 BPM Atrial Rate : 97 BPM P-R Int : 180 ms QRS Dur : 86 ms QT Int : 352 ms P-R-T Axes : 23 53 39 degrees QTcB Int : 447 ms Normal sinus rhythm minor Nonspecific ST abnormality Borderline Confirmed by Jose Vail ([id number]), commercial production editor ADAN RODRIGUEZ ([id number]) on 12/05/2024 7:56:14 AM Referred By: Confirmed By: Jose Vail 12/05/24 0756 Date _ Jose Vail MD CC: PATIENT RELATIONS SPECIALISTTiffanie Ritchie; Dr. Simba Her MD; Dr. Hamzah Aguirre MD ~ Signed [facility] Other Phone: [phone] Eosinophil percentageOrdered By: Hamzah Aguirre on 12-05-2024 Eosinophils/100 WBC (Bld) 5.4 % High 0-5 [facility] Erythrocyte distribution wid th (RBC) [Ratio]Ordered By: Hamzah Aguirre on 12-05-2024 Erythrocyte distribution width (RBC) [Entitic vol] 54.6 fL High 35.1-43.9 [facility] Erythrocyte distribution wid th ratioOrdered By: Hamzah Aguirre on 12-05-2024 Erythrocyte distribution width (RBC) [Ratio] 21.0 % High 11.6-14.6 [facility] Estimation of creatinine jose aranceOrdered By: Hamzah Aguirre on 12-05-2024 Estimated Creatinine Clearance Calc 81.20 ml/min 50-250 [facility] GFR/1.73 sq M.predicted yadi g non-blacks MDRD (S/P/Bld) [Vol rate/Area]Ordered By: Hamzah Aguirre on 12-05-2024 Estimated GFR (MDRD) Non-Af Amer 100 >60 [facility] Comment on above: mL/min/1.73m2 CKD-EP I Creatinine Equation (2020) Hematocrit Auto (Bld) [Volum e fraction]Ordered By: Hamzah Aguirre on 12-05-2024 Hematocrit (Bld) [Volume fraction] 26.2 % Low 37-47 [facility] Hemoglobin measurementOrdere d By: Hamzah Aguirre on 12-05-2024 Hemoglobin (Bld) [Mass/Vol] 8.0 g/dL Low 12.0-15.0 [facility] Immature granulocytes/100 WB C Auto (Bld)Ordered By: Hamzah Aguirre on 12-05-2024 Immature granulocytes/100 WBC (Bld) 0.000 % 0.0-0.9 [facility] Comment on above: IG% - Immature Granu locytes (promyelocytes, myelocytes and metamyelocytes) > 1% indicates that a LEFT SHIFT is Present. International normalized rat io (INR) calculationOrdered By: Simba Her on 12-05-2024 INR Coag (Bld) [Relative time] 1.6 {INR} [facility] L499.0042on 12-05-2024 Trop T High Sen 9 ng/L Normal <=14 [facility] Comment on above: Performed By: #### L 100.0100, L3300.0700, L300.3900, L501.6710, L500.4050, L503.5510, L101.9900 #### [facility] Laboratory [address] [place], [place], [address] L499.0043on 12-05-2024 Trop T High Sen Normal <=14 [facility] Comment on above: Result Comment: NO S PECIMEN COLLECTED. PATIENT DISCHARGED Performed By: #### L 100.0100, L3300.0700, L300.3900, L501.6710, L500.4050, L503.5510, L101.9900 #### [facility] Laboratory [address] [place], [place], [address] L501.4021on 12-05-2024 Trop T High Sen 8 ng/L Normal <=14 [facility] Comment on above: Performed By: #### L 501.4021 #### [facility] [address] [place], [place], [address] Laboratory - Hematology and Cell countsOrdered By: Hamzah Aguirre on 12-05-2024 Anisocytosis Ql (Bld) 1+ [facility] Lymphocytes Auto (Unsp spec) [#/Vol]Ordered By: Hamzah Aguirre on 12-05-2024 Lymphocytes (Bld) [#/Vol] 1.01 10*3/uL 0.83-4.5 1 [facility] Lymphocytes/100 WBC Auto (Un sp spec)Ordered By: Hamzah Aguirre on 12-05-2024 Lymphocytes/100 WBC (Bld) 36.3 % 19-41 [facility] MCV (mean corpuscular volume ) determinationOrdered By: Hamzah Aguirre on 12-05-2024 MCV (RBC) [Entitic vol] 72.2 fL Low 81-99 [facility] Comment on above: Delta: 68.0 on 12/04-1019 MR/CON.PCM.GIon 12-05-2024 MR/CON.PCM.GI [facility] Medical Records Department [address] [place] [address] Consultation - GI 12/05/24 1825 MR#: [id number] Acct: [id number] Name: DIAN JANE Rep #: [id number] : 1955 69 From: Francisco Zaman DO PCP: JU Mishra Status:ADM IN Location: [place] [id number] HPI Consult Data Date of Consult: 12/05/24 HPI Narrative Reason for Consultation: Anemia HPI Narrative: DIAN JANE, is a 69-year-old female with a past medical history of CAD status post 2 stents on Plavix, type 2 diabetes, PARRY with cirrhosis, hypertension, SEVERINO, GERD who presented to the emergency department with a chief complaint of low hemoglobin. Patient states that from May to June down in [place] where she was originally from she had multiple scopes done as well as a pill swallow study and they discovered that she had some areas of bleeding in her lower intestines she states that she cannot exactly remember the name of this however she states that she has never had to have blood transfusions in the past. They state that they placed her on iron supplementation and her blood count started to improve with this. Patient states that she has been having some chest tightness and shortness of breath recently as well. Patient states that when she was walking here into the emergency department she felt like her symptoms were worsening. Pt diagnosed with cirrhosis about one year in [place]. She has not had consistent f/u with GI in the past. Her last EGD was in 2023 showing gastric varices. On a routine follow-up patient was found to have hemoglobin of 5.6 was sent to the ED. Patient did complain of progressive shortness of breath with activity as well as chest tightness. Stool guaiac obtained in the emergency department came back positive. An order was given for patient to be transfused with 2 unit PRBC from the emergency department [facility] Medical History Bilateral carotid artery disease SEVERINO (obstructive sleep apnea) GERD (gastroesophageal reflux disease) Essential (primary) hypertension Edema Cirrhosis Diabetes type 2 Coronary artery disease Home Medications ???Medication ???Instructions ???Recorded ???Last Taken ???Type cholecalciferol (vitamin D3) 325 50,000 unit PO QODAY 12/04/2409/28 History mcg (13,000 unit) capsule clopidogrel 75 mg tablet (Plavix) 75 mg PO DAILY 12/04/24 12/04/24 History methocarbamol 750 mg tablet 1,500 mg PO QHS 12/04/24 12/03/24 History nitroglycerin 0.4 mg sublingual 0.4 mg sublingual Q5-15M PRN chest 12/04/24 Unknown History tablet pain pantoprazole 20 mg tablet,delayed 20 mg PO QHS 12/04/24 12/03/24 Hi story release simvastatin 10 mg tablet 10 mg PO QHS 12/04/24 12/03/24 His tory Allergy/AdvReac Type Severity Reaction Status Date / Time Influenza Virus Vaccines Allergy Severe Anaphylaxis Verified 10/06/24 12:03 (flu vaccine) hydrocodone Allergy Angioedema Verified 12/04/24 09:43 Corticosteroids AdvReac Intermediate Other Verified 10/06/24 12:03 (Glucocorticoids) Surgical History History of percutaneous angioplasty ( 10/2014) Hx of section Hx of total knee replacement History of total hysterectomy with bilateral salpingo-oophorectomy (BSO) Hx of appendectomy Social History Smoking Status: Never smoker ROS Constitutional Constitutional: Denies fatigue, fever(s), poor appetite, weight gain or weight loss Gastrointestinal Gastrointestinal: Denies belching, bloating, change in bowel habits, change in stool character, chewing difficulty, coffee ground emesis, constipation, cramping, diarrhea, dyspepsia, dysphagia, early satiety, excessive flatus, fecal incontinence, heartburn, hematemesis, hematochezia, hemorrhoids, loose stools, melena, nausea, odynophagia, rectal bleeding, tenesmus, vomiting or weight changes Physical Exam Narrative GENERAL: cooperative HEENT: Atraumatic; normocephalic EYES; Anicteric, Normal Conjunctiva NECK; supple, normal thyroid, RESPIRATORY: Diminished to auscultation CARDIOVASCULAR: Regular S1 S2, GI: soft, normoactive bowel sounds, : No Renal angle tenderness; EXTREMITIES: No edema, no clubbing, MUSCULOSKELETAL: no muscle wasting NEURO: Awake; no lateralizing signs. SKIN: No Rash PSYCH; Flat affect Lab / Micro Data 12/05/24 05:27 12/05/24 05:27 Labs: Laboratory Results - last 24 hr 12/04/24 10:19: Crossmatch See Detail 12/04/24 22:58: Troponin T Hi Sens 4Hr 12 12/05/24 05:27: WBC 2.8 L, RBC 3.63 L, Hgb 8.0 L, Hct 26.2 L, MCV 72.2 L D, MCH 22.0 L, MCHC 30.5 L D, RDW Std Deviation 54.6 H, RDW Coeff of Rafa 21.0 H, Plt Count 105 L, MPV 10.1, Kylie (more content not included)... Normal [facility] MR/POSTOP.ANEon 12-05-2024 MR/POSTOP.[facility] Medical Records Department [address] [place] [address] Anesthesia Postop Eval I 12/05/24 1856 MR#: [id number] Acct: [id number] Name: DIAN JANE Rep #: [id number] : 1955 69 From: Simba Her MD PCP: JU Mishra Status:ADM IN Y Race: C Location: [place] [address] Anesthesia: Postop Eval I Current Vital Signs Temperature: 98.5 F Pulse Rate: 89 Blood Pressure: 122/63 Respiratory Rate: 16 Pulse Ox: 94 Oxygen Delivery Method: Room Air Assessment Airway patent: Yes Spontaneous unlabored respirations: Yes Mental status: Awake and Calm nausea: Yes Vomiting: No Anesthesia Complication: No Fluid Hydration Crystalloid volume administer (ml): 10 Total IV fluid infused: 10 Progress Note Anesthesia document: Postop Eval 1 completed: Yes 12/05/241858 Date Sibma Her MD Cosigner Signature: Date CC: Signed Normal [facility] MR/[id number] 12-05-2024 [facility] Medical Records Department [address] [place] [address] Anesthesia Postop Eval II 12/05/242013 MR#: [id number] Acct: [id number] Name: DIAN JANE Rep #: [id number] : 1955 69 From: Simba Her MD PCP: JU Mishra Status:ADM IN Y Race: C Location: [place] [address] Anesthesia Postop Eval I Sum Postop Eval Completion status Anesthesia document: Postop Eval 1 completed: Yes Anesthesia Postop Eval I Summary Anesthesia Postop Eval I Summary: Anesthesia Postop Eval I: Assessment Summary Airway patent Yes 12/05/24 18:59 Spontaneous unlabored Yes 12/05/24 18:59 respirations Mental status Awake,Calm 12/05/24 18:59 nausea Yes 12/05/24 18:59 Vomiting No 12/05/24 18:59 Anesthesia Postop Eval I: Fluid Summary Crystalloid volume administer 10 12/05/24 18:59 (ml) Colloids volume administered ( ml) Blood Product volume administered (ml) Total IV fluid infused 10 12/05/24 18:59 Anesthesia Postop Eval I: Summary Notes Anesthesia Complication No 12/05/24 18:59 Anesthesia Complication Comment: Post-operative progress note Anesthesia: Postop Eval II Evaluation Mental status: Awake and Calm Pain Level: 0 nausea: No Vomiting: No Progress Note Post-operative progress note: Nausea improved with breathing from a [place]. Complications Anesthesia Complication: No 12/05/242014 Date Simba Her MD Cosigner Signature: Date CC: Signed Normal [facility] Magnesiumon 12-05-2024 Magnesium [Mass/Vol] 1.8 mg/dL Normal 1.5-2.2 [facility] Comment on above: Performed By: #### L 100.0100, L3300.0700, L300.3900, L501.6710, L500.4050, L503.5510, L101.9900 #### [facility] Laboratory [address] [place], [address] Magnesium (Unsp spec) [Mass/ Vol]Ordered By: Hamzah Aguirre on 12-05-2024 Magnesium [Mass/Vol] 1.8 mg/dL 1.5-2.2 [facility] Magnesium measurement (mass/ volume)Ordered By: Hamzah Aguirre on 12-05-2024 Magnesium (Unsp spec) [Mass/Vol] 1.8 mg/dL 1.5-2.2 [facility] Mean corpuscular hemoglobin (MCH) determinationOrdered By: Hamzah Aguirre on 12-05-2024 MCH (RBC) [Entitic mass] 22.0 pg Low 27.0-32.0 [facility] Mean corpuscular hemoglobin concentration (MCHC) determinationOrdered By: Hamzah Aguirre on 12-05-2024 MCHC (RBC) [Mass/Vol] 30.5 g/dL Low 32-36 [facility] Comment on above: Delta: 27.9 on 12/04 Mean platelet volume determi nationOrdered By: Hamzah Aguirre on 12-05-2024 Platelet mean volume (Bld) [Entitic vol] 10.1 fL 6.2-12.0 [facility] Monocyte percentageOrdered B y: Hamzah Aguirre on 12-05-2024 Monocytes/100 WBC (Bld) 11.5 % High 0-10 [facility] Neutrophil percentageOrdered By: Hamzah Aguirre on 12-05-2024 Neutrophils/100 WBC (Bld) 45.7 % Low 47-70 [facility] Nucleated red blood cell per centageOrdered By: Hamzah Aguirre on 12-05-2024 Nucleated RBC/100 WBC (Bld) [Ratio] 0 % 0-5 [facility] Partial Thromboplast Timeon 12-05-2024 aPTT Coag (Bld) [Time] 33.1 s Normal 24.1-36.2 [facility] Comment on above: Performed By: #### L 100.0100, L3300.0700, L300.3900, L501.6710, L500.4050, L503.5510, L101.9900 #### [facility] Laboratory [address] [place], [place], [id number] Phosphoruson 12-05-2024 Phosphate [Mass/Vol] 3.0 mg/dL Normal 2.7-4.5 [facility] Comment on above: Performed By: #### L 100.0100, L3300.0700, L300.3900, L501.6710, L500.4050, L503.5510, L101.9900 #### [facility] Laboratory [address] [place], [address] Platelet countOrdered By: Thierno Aguirre on 12-05-2024 Platelets (Bld) [#/Vol] 105 10*3/uL Low 150-450 [facility] Potassium (Unsp spec) [Mass/ Vol]Ordered By: Hamzah Aguirre on 12-05-2024 Potassium [Moles/Vol] 3.7 mmol/L 3.3-5.1 [facility] Prothrombin Time w/INRon INR Coag (PPP) [Relative time] 1.6 {INR} Normal [facility] Comment on above: Performed By: #### L 100.0100, L3300.0700, L300.3900, L501.6710, L500.4050, L503.5510, L101.9900 #### [facility] Laboratory [address] [place], [place], [id number] PT Coag (PPP) [Time] 19.1 s High 11.7-14.9 [facility] Comment on above: Performed By: #### L 100.0100, L3300.0700, L300.3900, L501.6710, L500.4050, L503.5510, L101.9900 #### [facility] Laboratory [address] [place], [place], [id number] Prothrombin timeOrdered By: Simba Her on 12-05-2024 PT Coag (PPP) [Time] 19.1 s High 11.7-14.9 [facility] RBC Auto (Bld) [#/Vol]Ordere d By: Hamzah Aguirre on 12-05-2024 RBC (Bld) [#/Vol] 3.63 10*6/uL Low 4.2-5.4 [facility] Serum creatinine measurement (mass/volume)Ordered By: Hamzah Aguirre on 12-05-2024 Creatinine [Mass/Vol] 0.55 mg/dL Low 0.70-1.20 [facility] Serum glucose measurement (m ass/volume)Ordered By: Hamzah Aguirre on 12-05-2024 Glucose [Mass/Vol] 90 mg/dL 70-99 [facility] Serum or plasma calcium harmony urement (mass/volume)Ordered By: Hamzah Aguirre on 12-05-2024 Calcium [Mass/Vol] 8.4 mg/dL 7.6-11.0 [facility] Serum or plasma urea nitroge n measurement (mass/volume)Ordered By: Hamzah Aguirre on 12-05-2024 Urea nitrogen [Mass/Vol] 6 mg/dL 4-19 [facility] Serum phosphorus measurement Ordered By: Hamzah Aguirre on 12-05-2024 Phosphorus Level 3.0 mg/dL 2.7-4.5 [facility] Sodium levelOrdered By: Meño Aguirre on 12-05-2024 Sodium [Moles/Vol] 139 mmol/L 133-145 [facility] Troponin T.cardiac High sens itivity method [Mass/Vol]Ordered By: Hamzah Aguirre on 12-05-2024 Troponin T High Sensitivity 2 Hour 9 ng/L <14 [facility] Troponin T High Sensitivity 8 ng/L <14 [facility] Troponin T.cardiac [Mass/vol ume] in Serum or Plasma by High sensitivity methodOrdered By: Hamzah Aguirre on 12-05-2024 Troponin T.cardiac High sensitivity method [Mass/Vol] 9 ng/L <14 [facility] Troponin T.cardiac High sensitivity method [Mass/Vol] 8 ng/L <14 [facility] White blood cell (WBC) count Ordered By: Hamzah Aguirre on 12-05-2024 WBC (Bld) [#/Vol] 2.8 10*3/uL Low 4.4-11.0 [facility] aPTT Coag (PPP) [Time]Ordere d By: Simba Her on 12-05-2024 aPTT Coag (Bld) [Time] 33.1 s 24.1-36.2 [facility] Absolute lymphocyte countOrd ered By: Jolanta Paz on 12-04-2024 Lymphocytes Auto (Unsp spec) [#/Vol] 0.93 10*3/uL 0.83-4.51 [facility] Absolute neutrophil countOrd ered By: Naga Mcleod on 12-04-2024 Neutrophils (Bld) [#/Vol] 1.3 10*3/uL Low 2.0-7.7 [facility] Absolute neutrophil countOrd ered By: Jolanta Paz on 12-04-2024 Neutrophils (Bld) [#/Vol] 1.6 10*3/uL Low 2.0-7.7 [facility] Alpha fetoprotein measuremen t as tumor markerOrdered By: Jolanta Paz on 12-04-2024 Tumor Marker Alpha Fetoprotein 9.4 ng/mL High 0.0-9.2 [facility] Comment on above: [facility] El ectrochemiluminescence Immunoassay(ECLIA)Values obtained with different assay methods or kits cannotbe used interchangeably. Results cannot be interpreted asabsolute evidence of the presence or absence of malignantdisease.This test is not interpretable in females.Performed at: [facility] [id number] Director: Chance Geronimo PhD, Phone: [phone] Ammoniaon 12-04-2024 Ammonia (P) [Moles/Vol] 40.7 umol/L Normal [facility] Comment on above: Performed By: #### L 100.0100, L3300.0700, L300.3900, L501.6710, L500.4050, L503.5510, L101.9900 #### [facility] Laboratory [facility] [address] [place], [place], [address] Anion gap in Serum or Plasma Ordered By: Naga Mcleod on 12-04-2024 Anion gap [Moles/Vol] 11 mmol/L 01-16 [facility] Anion gap in Serum or Plasma Ordered By: Jolanta Paz on 12-04-2024 Anion gap [Moles/Vol] 9 mmol/L 01-16 [facility] Automated lymphocyte count a s percentage of total leukocytesOrdered By: Jolanta Paz on 12-04-2024 Lymphocytes/100 WBC Auto (Unsp spec) 30.3 % 19-41 [facility] BRCon 12-04-2024 RC Normal [facility] Comment on above: Result Comment: [id number] OP RC TRANSFUSED 12/04/24 1133 [id number] OP RC TRANSFUSED 12/04/24 1438 [id number] OP RC TRANSFUSED 12/04/24 1806 Performed By: #### L 100.0100, L3300.0700, L300.3900, L501.6710, L500.4050, L503.5510, L101.9900 #### [facility] Laboratory [address] [place], [address] BUN/creatinine ratioOrdered By: Naga Mcleod on 12-04-2024 Urea nitrogen/Creatinine [Mass ratio] 17.8 mg/mg 10- [facility] BUN/creatinine ratioOrdered By: Jolanta Paz on 12-04-2024 Urea nitrogen/Creatinine [Mass ratio] 17.0 mg/mg 10-20 [facility] Basophil percentageOrdered B y: Naga Mcleod on 12-04-2024 Basophils/100 WBC (Bld) 1.4 % High 0-1 [facility] Basophil percentageOrdered B y: Jolanta Paz on 12-04-2024 Basophils/100 WBC (Bld) 1.0 % 0-1 [facility] Bilirubin, totalOrdered By: Naga Mcleod on 12-04-2024 Bilirubin [Mass/Vol] 0.72 mg/dL 0.00-1.30 [facility] Bilirubin, totalOrdered By: Jolanta Paz on 12-04-2024 Bilirubin [Mass/Vol] 0.79 mg/dL 0.00-1.30 [facility] CRPon 12-04-2024 C-REACTIVE PROT < 3.00 Normal 0.0-3.0 [facility] Comment on above: Performed By: #### L 100.0100, L3300.0700, L300.3900, L501.6710, L500.4050, L503.5510, L101.9900 #### [facility] Laboratory [address] [place], [address] CRP [Mass/Vol]Ordered By: Laurence Paz on 12-04-2024 C-Reactive Protein Extended Range < 3.00 mg/L 0.0-3.0 [facility] CTA Abd/Pelvis W/WO Contrast on 12-04-2024 CTA Abd/Pelvis W/WO Contrast [facility] Imaging Services [address] [place], [place] [id number] CTA Abd/Pelvis W/WO Contrast MR#: [id number] Acct: [id number] Name: DIAN JANE Rep #: [id number] : 1955 F 69 From: Antwan keller MD PCP: JU Mishra Status: PRE ER Study: CTA Abd/Pelvis W/WO Contrast Date of Exam: 10/29 Exam# [id number] Ordering Dr: Naga Mcleod DO PROCEDURE: CTA ABD/PELVIS W/WO CONTRAST 12/04/2024 REASON FOR EXAM: ANEMIA HX OF LOWER GI BLEEDING Chest tightness. TECHNIQUE: CTA imaging of the abdomen and pelvis with intravenous contrast. Coronal and Sagittal reconstruction series were provided. 3D, 3D post processing, 3D reconstructions, Maximum intensity projection (MIPs) Volume rendering and Shaded surface rendering was provided. CONTRAST: Isovue 370 VOLUME: 100mL Gauge IV One or more dose reduction techniques were used (e.g., Automated exposure control, adjustment of the mA and/or kV according to patient size, use of iterative reconstruction technique). RADIATION DOSE SUMMARY: CTDlvol: 30 mGy DLP: 1175.52 mGycm COMPARISON: None FINDINGS: There is evidence of ascites. Nodular contour of the liver suggestive of cirrhosis. Splenomegaly. Gallbladder wall thickening and contraction most likely secondary to the ascites. Sigmoid diverticulosis with no radiographic evidence of diverticulitis. Status post hysterectomy and appendectomy. Aorta: Mild mixed calcified and soft plaque identified. No abdominal aortic aneurysm. Iliac Arteries: Scattered atherosclerotic plaque. No aneurysm or significant stenosis. Celiac: Unremarkable SMA: Unremarkable KAIN : Not visualized Right Renal: Unremarkable Left Renal: Unremarkable Other Findings: The lung bases are unremarkable. CT/CTA Abd/Pelvis W/WO Contrast IMPRESSION: Ascites. Findings suggestive of cirrhosis of the liver with evidence of splenomegaly. Sigmoid diverticulosis. Reading Location: [facility] CC: JU Ritchie; Dr. Naga Mcleod DO Manager [employer]: Signed Normal [facility] Carbon dioxide, total [Moles /volume] in Central venous bloodOrdered By: Naga Mcleod on 12-04-2024 CO2 [Moles/Vol] 20.0 mmol/L Low 21.0-32.0 [facility] Carbon dioxide, total [Moles /volume] in Central venous bloodOrdered By: Jolanta Paz on 12-04-2024 CO2 [Moles/Vol] 21.4 mmol/L 21.0-32.0 [facility] Chloride assayOrdered By: Jose Mcleod on 12-04-2024 Chloride [Moles/Vol] 108 mmol/L 98-108 [facility] Chloride assayOrdered By: Laurence Paz on 12-04-2024 Chloride [Moles/Vol] 108 mmol/L 98-108 [facility] Comprehensive Metabolic Prof ilon 12-04-2024 Albumin [Mass/Vol] 3.4 g/dL Normal 3.4-4.8 [facility] Comment on above: Performed By: #### L 100.0100, L3300.0700, L300.3900, L501.6710, L500.4050, L503.5510, L101.9900 #### [facility] Laboratory [address] [place], [address] Albumin/Globulin [Mass ratio] 1.2 {ratio} Normal 0.9-2.4 [facility] Comment on above: Performed By: #### L 100.0100, L3300.0700, L300.3900, L501.6710, L500.4050, L503.5510, L101.9900 #### [facility] Laboratory [address] [place], [address] ALK PHOS 142 U/L High 35-104 [facility] Comment on above: Performed By: #### L 100.0100, L3300.0700, L300.3900, L501.6710, L500.4050, L503.5510, L101.9900 #### [facility] Laboratory [address] [place], [address] ALT [Catalytic activity/Vol] 16 U/L Normal <=34 [facility] Comment on above: Performed By: #### L 100.0100, L3300.0700, L300.3900, L501.6710, L500.4050, L503.5510, L101.9900 #### [facility] Laboratory [address] [place], [address] AST [Catalytic activity/Vol] 39 U/L High <=31 [facility] Comment on above: Performed By: #### L 100.0100, L3300.0700, L300.3900, L501.6710, L500.4050, L503.5510, L101.9900 #### [facility] Laboratory [address] [place], [address] Bilirubin [Mass/Vol] 0.72 mg/dL Normal 0.00-1.30 [facility] Comment on above: Performed By: #### L 100.0100, L3300.0700, L300.3900, L501.6710, L500.4050, L503.5510, L101.9900 #### [facility] Laboratory [address] [place], [address] BUN/CRE 17.8 RATIO Normal 10-20 [facility] Comment on above: Performed By: #### L 100.0100, L3300.0700, L300.3900, L501.6710, L500.4050, L503.5510, L101.9900 #### [facility] Laboratory [address] [place], [address] Calcium [Mass/Vol] 8.5 mg/dL Normal 7.6-11.0 [facility] Comment on above: Performed By: #### L 100.0100, L3300.0700, L300.3900, L501.6710, L500.4050, L503.5510, L101.9900 #### [facility] Laboratory [address] [place], [address] Chloride [Moles/Vol] 108 mmol/L Normal 98-108 [facility] Comment on above: Performed By: #### L 100.0100, L3300.0700, L300.3900, L501.6710, L500.4050, L503.5510, L101.9900 #### [facility] Laboratory [address] [place], [address] CO2 [Moles/Vol] 20.0 mmol/L Low 21.0-32.0 [facility] Comment on above: Performed By: #### L 100.0100, L3300.0700, L300.3900, L501.6710, L500.4050, L503.5510, L101.9900 #### [facility] Laboratory [address] [place], [address] Creatinine [Mass/Vol] 0.57 mg/dL Low 0.70-1.20 [facility] Comment on above: Performed By: #### L 100.0100, L3300.0700, L300.3900, L501.6710, L500.4050, L503.5510, L101.9900 #### [facility] Laboratory [address] [place], [address] ECRCL 81.29 ml/min Normal 50-250 [facility] Comment on above: Performed By: #### L 100.0100, L3300.0700, L300.3900, L501.6710, L500.4050, L503.5510, L101.9900 #### [facility] Laboratory [address] [place], [address] GAP 11 Normal 5-15 [facility] Comment on above: Performed By: #### L 100.0100, L3300.0700, L300.3900, L501.6710, L500.4050, L503.5510, L101.9900 #### [facility] Laboratory [address] [place], [address] GFR/1.73 sq M.predicted among non-blacks MDRD (S/P/Bld) [Vol rate/Area] 99 mL/min/{1.73_m2} Normal >60 [facility] Comment on above: Result Comment: mL/m in/1.73m2 CKD-EPI Creatinine Equation (2020) Performed By: #### L 100.0100, L3300.0700, L300.3900, L501.6710, L500.4050, L503.5510, L101.9900 #### [facility] Laboratory [address] [place], [address] Globulin (S) [Mass/Vol] 2.8 g/dL Normal 2.2-4.2 [facility] Comment on above: Performed By: #### L 100.0100, L3300.0700, L300.3900, L501.6710, L500.4050, L503.5510, L101.9900 #### [facility] Laboratory [address] [place], [address] Glucose [Mass/Vol] 111 mg/dL High 70-99 [facility] Comment on above: Performed By: #### L 100.0100, L3300.0700, L300.3900, L501.6710, L500.4050, L503.5510, L101.9900 #### [facility] Laboratory [address] [place], [address] Potassium [Moles/Vol] 3.4 mmol/L Normal 3.3-5.1 [facility] Comment on above: Performed By: #### L 100.0100, L3300.0700, L300.3900, L501.6710, L500.4050, L503.5510, L101.9900 #### [facility] Laboratory [address] [place], [address] Sodium [Moles/Vol] 139 mmol/L Normal 133-145 [facility] Comment on above: Performed By: #### L 100.0100, L3300.0700, L300.3900, L501.6710, L500.4050, L503.5510, L101.9900 #### [facility] Laboratory [address] [place], [address] T PROT 6.2 g/dL Normal 5.9-8.4 [facility] Comment on above: Performed By: #### L 100.0100, L3300.0700, L300.3900, L501.6710, L500.4050, L503.5510, L101.9900 #### [facility] Laboratory [address] [place], [address] Urea nitrogen [Mass/Vol] 10 mg/dL Normal 4-19 [facility] Comment on above: Performed By: #### L 100.0100, L3300.0700, L300.3900, L501.6710, L500.4050, L503.5510, L101.9900 #### [facility] Laboratory [address] [place], [address] Albumin [Mass/Vol] 3.4 g/dL Normal 3.4-4.8 [facility] Comment on above: Performed By: #### L 100.0100, L3300.0700, L300.3900, L501.6710, L500.4050, L503.5510, L101.9900 #### [facility] Laboratory [address] [place], [address] Albumin/Globulin [Mass ratio] 1.2 {ratio} Normal 0.9-2.4 [facility] Comment on above: Performed By: #### L 100.0100, L3300.0700, L300.3900, L501.6710, L500.4050, L503.5510, L101.9900 #### [facility] Laboratory [address] [place], [address] ALK PHOS 144 U/L High 35-104 [facility] Comment on above: Performed By: #### L 100.0100, L3300.0700, L300.3900, L501.6710, L500.4050, L503.5510, L101.9900 #### [facility] Laboratory [address] [place], [address] ALT [Catalytic activity/Vol] 17 U/L Normal <=34 [facility] Comment on above: Performed By: #### L 100.0100, L3300.0700, L300.3900, L501.6710, L500.4050, L503.5510, L101.9900 #### [facility] Laboratory [address] [place], [address] AST [Catalytic activity/Vol] 38 U/L High <=31 [facility] Comment on above: Performed By: #### L 100.0100, L3300.0700, L300.3900, L501.6710, L500.4050, L503.5510, L101.9900 #### [facility] Laboratory [address] [place], [address] Bilirubin [Mass/Vol] 0.79 mg/dL Normal 0.00-1.30 [facility] Comment on above: Performed By: #### L 100.0100, L3300.0700, L300.3900, L501.6710, L500.4050, L503.5510, L101.9900 #### [facility] [address] [place], [address] BUN/CRE 17.0 RATIO Normal 10-20 [facility] Comment on above: Performed By: #### L 100.0100, L3300.0700, L300.3900, L501.6710, L500.4050, L503.5510, L101.9900 #### [facility] [address] [place], [address] Calcium [Mass/Vol] 8.6 mg/dL Normal 7.6-11.0 [facility] Comment on above: Performed By: #### L 100.0100, L3300.0700, L300.3900, L501.6710, L500.4050, L503.5510, L101.9900 #### [facility] [address] [place], [address] Chloride [Moles/Vol] 108 mmol/L Normal 98-108 [facility] Comment on above: Performed By: #### L 100.0100, L3300.0700, L300.3900, L501.6710, L500.4050, L503.5510, L101.9900 #### [facility] [address] [place], [address] CO2 [Moles/Vol] 21.4 mmol/L Normal 21.0-32.0 [facility] Comment on above: Performed By: #### L 100.0100, L3300.0700, L300.3900, L501.6710, L500.4050, L503.5510, L101.9900 #### [facility] [address] [place], [address] Creatinine [Mass/Vol] 0.62 mg/dL Low 0.70-1.20 [facility] Comment on above: Performed By: #### L 100.0100, L3300.0700, L300.3900, L501.6710, L500.4050, L503.5510, L101.9900 #### [facility] [address] [place], [address] GAP 9 Normal 5-15 [facility] Comment on above: Performed By: #### L 100.0100, L3300.0700, L300.3900, L501.6710, L500.4050, L503.5510, L101.9900 #### [facility] [address] [place], [address] GFR/1.73 sq M.predicted among non-blacks MDRD (S/P/Bld) [Vol rate/Area] 97 mL/min/{1.73_m2} Normal >60 [facility] Comment on above: Result Comment: mL/m in/1.73m2 CKD-EPI Creatinine Equation (2020) Performed By: #### L 100.0100, L3300.0700, L300.3900, L501.6710, L500.4050, L503.5510, L101.9900 #### [facility] [address] [place], [address] Globulin (S) [Mass/Vol] 2.9 g/dL Normal 2.2-4.2 [facility] Comment on above: Performed By: #### L 100.0100, L3300.0700, L300.3900, L501.6710, L500.4050, L503.5510, L101.9900 #### [facility] [address] [place], [address] Glucose [Mass/Vol] 149 mg/dL High 70-99 [facility] Comment on above: Performed By: #### L 100.0100, L3300.0700, L300.3900, L501.6710, L500.4050, L503.5510, L101.9900 #### [facility] [address] [place], [address] Potassium [Moles/Vol] 3.3 mmol/L Normal 3.3-5.1 [facility] Comment on above: Performed By: #### L 100.0100, L3300.0700, L300.3900, L501.6710, L500.4050, L503.5510, L101.9900 #### [facility] [address] [place], [address] Sodium [Moles/Vol] 139 mmol/L Normal 133-145 [facility] Comment on above: Performed By: #### L 100.0100, L3300.0700, L300.3900, L501.6710, L500.4050, L503.5510, L101.9900 #### [facility] [address] [place], [address] T PROT 6.3 g/dL Normal 5.9-8.4 [facility] Comment on above: Performed By: #### L 100.0100, L3300.0700, L300.3900, L501.6710, L500.4050, L503.5510, L101.9900 #### [facility] [address] [place], [address] Urea nitrogen [Mass/Vol] 11 mg/dL Normal 4-19 [facility] Comment on above: Performed By: #### L 100.0100, L3300.0700, L300.3900, L501.6710, L500.4050, L503.5510, L101.9900 #### [facility] [address] [place], [address] Emergency Department Summary on 12-04-2024 Emergency Department Summary [facility] Medical Records Department [address] [place] [address] Emergency Department Summary 12/04/24 MR#: [id number] Acct: [id number] Name: DIAN JANE Rep #: [id number] : 1955 69 From: Naga Mcleod DO PCP: JU Mishra Status:REG ER Location: ED HPI History of Present Illness Chief Complaint: Chest Pain Narrative Narrative: Patient is a 69-year-old female with a past medical history of CAD status post 2 stents on Plavix, type 2 diabetes, PARRY with cirrhosis, hypertension, SEVERINO, GERD who presented to the emergency department from her gastroenterology's office with a chief complaint of low hemoglobin. Patient states that from May to June in [place] where she was originally from she had multiple scopes done as well as a pill swallow study and they discovered that she had some areas of bleeding in her lower intestines she states that she cannot exactly remember the name of this however she states that she has never had to have blood transfusions in the past. They state that they placed her on iron supplementation and her blood count started to improve with this. Patient states that she has been having some chest tightness and shortness of breath recently as well. Patient states that when she was walking here into the emergency department she felt like her symptoms were worsening. [facility] Medical History Bilateral carotid artery disease SEVERINO (obstructive sleep apnea) GERD (gastroesophageal reflux disease) Essential (primary) hypertension Edema Cirrhosis Diabetes type 2 Coronary artery disease Home Medications ???Medication ???Instructions ???Recorded ???Last Taken ???Type cholecalciferol (vitamin D3) 325 50,000 unit PO QODAY 12/04/2409/28 History mcg (13,000 unit) capsule clopidogrel 75 mg tablet (Plavix) 75 mg PO DAILY 12/04/24 12/04/24 History methocarbamol 750 mg tablet 1,500 mg PO QHS 12/04/24 12/03/24 History nitroglycerin 0.4 mg sublingual 0.4 mg sublingual Q5-15M PRN chest 12/04/24 Unknown History tablet pain pantoprazole 20 mg tablet,delayed 20 mg PO QHS 12/04/24 12/03/24 Hi story release simvastatin 10 mg tablet 10 mg PO QHS 12/04/24 12/03/24 His tory Allergy/AdvReac Type Severity Reaction Status Date / Time Influenza Virus Vaccines Allergy Severe Anaphylaxis Verified 10/06/24 12:03 (flu vaccine) hydrocodone Allergy Angioedema Verified 12/04/24 09:43 Corticosteroids AdvReac Intermediate Other Verified 10/06/24 12:03 (Glucocorticoids) Surgical History History of percutaneous angioplasty ( 10/2014) Hx of section Hx of total knee replacement History of total hysterectomy with bilateral salpingo-oophorectomy (BSO) Hx of appendectomy Social History Smoking Status: Never smoker ROS ROS ED ROS Narrative Constitutional: Denies fevers, chills, headaches, lightness, dizziness Eyes: Denies change in vision double vision blurry vision Cardiovascular: Complains of chest pain as noted above denies palpitations Respiratory: Complains shortness of breath denies coughing wheezing Abdomen: Complains of some lower abdominal discomfort denies nausea vomit diarrhea : Denies urinary symptoms Neurological: Denies numbness, wheeze, tingling Musculoskeletal: Denies back pain Skin: Denies rashes or lesions EXAM Physical Exam Narrative Exam Narrative: General: Patient lying in bed rest complete not appear to be in acute distress Head: Atraumatic, normocephalic Eyes: PERRL bilaterally, EOMI bilateral, no conjunctival injection noted Neck: Soft, supple, trachea midline Cardiovascular: Patient tachycardic with a regular rhythm no murmurs gallops rubs noted Respiratory: Clear to auscultation bilaterally Abdomen: Soft, nondistended, nontender to palpation no rebound or guarding on exam Rectal: Rectal exam performed and minimal amount of stool noted however some brown stool was noted no yamileth dark tarry stool Extremities: Patient has bilateral lower extremity swelling but states that she chronically has lower extremity swelling and this is not worse than her baseline Neurological: Denies numbness, exam tingling Skin: Denies rashes or lesions Const Vital Signs: 12/04/24 09:41 12/04/24 10:36 12/04/24 11:00 Temperature 98.2 F Temperature Source Oral Pulse Rate 123 H 97 Respiratory Rate 20 H 15 Respiratory Effort Short of Breath Blood Pressure 160/99 H 151/71 H Blood Pressure Mean 119 97 Blood Pressure Source Blood Pressure Position Blood Pressure Location Pulse Ox 100 96 Oxygen Delivery Method Room Air Room Air 12/04/24 11:46 0 (more content not included)... Normal [facility] Eosinophil percentageOrdered By: Naga Mcleod on 12-04-2024 Eosinophils/100 WBC (Bld) 4.3 % 0-5 [facility] Eosinophil percentageOrdered By: Jolanta Paz on 12-04-2024 Eosinophils/100 WBC (Bld) 5.5 % High 0-5 [facility] Erythrocyte Sed Rateon 12-04 SED RATE 3 mm/hr Normal 0-30 [facility] Comment on above: Performed By: #### L 100.0100, L3300.0700, L300.3900, L501.6710, L500.4050, L503.5510, L101.9900 #### [facility] [address] [place], [address] Erythrocyte distribution wid th (RBC) [Ratio]Ordered By: Naga Mcleod on 12-04-2024 Erythrocyte distribution width (RBC) [Entitic vol] 44.7 fL High 35.1-43.9 [facility] Erythrocyte distribution wid th (RBC) [Ratio]Ordered By: Jolanta Paz on 12-04-2024 Erythrocyte distribution width (RBC) [Entitic vol] 44.7 fL High 35.1-43.9 [facility] Erythrocyte distribution wid th ratioOrdered By: Naga Mcleod on 12-04-2024 Erythrocyte distribution width (RBC) [Ratio] 18.4 % High 11.6-14.6 [facility] Erythrocyte distribution wid th ratioOrdered By: Jolanta Paz on 12-04-2024 Erythrocyte distribution width (RBC) [Ratio] 18.3 % High 11.6-14.6 [facility] Erythrocyte distribution wid th standard deviationOrdered By: Jolanta Paz on 12-04-2024 Erythrocyte distribution width (RBC) [Ratio] 44.7 fl High 35.1-43.9 [facility] Erythrocyte sedimentation ra teOrdered By: Jolanta Paz on 12-04-2024 ESR (Bld) [Velocity] 3 mm/h 0-30 [facility] Estimation of creatinine jose aranceOrdered By: Naga Mcleod on 12-04-2024 Estimated Creatinine Clearance Calc 81.29 ml/min 50-250 [facility] GFR/1.73 sq M.predicted yadi g non-blacks MDRD (S/P/Bld) [Vol rate/Area]Ordered By: Naga Mcleod on 12-04-2024 Estimated GFR (MDRD) Non-Af Amer 99 >60 [facility] Comment on above: mL/min/1.73m2 CKD-EP I Creatinine Equation (2020) GFR/1.73 sq M.predicted yadi g non-blacks MDRD (S/P/Bld) [Vol rate/Area]Ordered By: Jolanta Paz on 12-04-2024 Estimated GFR (MDRD) Non-Af Amer 97 >60 [facility] Comment on above: mL/min/1.73m2 CKD-EP I Creatinine Equation (2020) Gastroenterology Visit Repor ton 12-04-[address] [facility] [address] [place] [address] OFFICE VISIT Date of Service: 12/04/24 MR#: [id number] Acct: [id number] Name: DIAN JANE Rep #: [id number] : 1955 Provider: SHANNON [place] Age/Sex: 69/F Location[place] [facility] [place] Status: Signed Intake Vital Signs 10/06/24 11:58 12/04/24 08:22 Height 5 ft 2 in 5 ft 2 in Weight: 255 lb 8 oz BMI 46.7 BP 138/62 H Pulse Oximetry (%) 97 Intake Visit Reasons: New Patient Chief Complaint: cirrhosis Allergies Influenza Virus Vaccines (flu vaccine) Allergy (Severe, Verified 10/06/24 12:03) Anaphylaxis Corticosteroids (Glucocorticoids) Adverse Reaction (Intermediate, Verified 10/06/24 12:03) Other Medications ???Medication ???Instructions ???Recorded ???Confirmed ???Type cholecalciferol (vitamin D3) 325 50,000 unit PO .Sun/Thurs 12/04/24 12/04/24 History mcg (13,000 unit) capsule clopidogrel 75 mg tablet (Plavix) 75 mg PO QDAY 12/04/24 12/04/24 H istory methocarbamol 750 mg tablet 1,500 mg PO QHS 12/04/24 12/04/24 History metoprolol succinate 25 mg 25 mg PO QDAY 12/04/24 12/04/24 Hi story tablet,extended release 24 hr nitroglycerin 0.3 mg sublingual 0.4 mg sublingual ONCE PRN 5 12/04/24 History tablet nitroglycerin 0.4 mg sublingual 0.4 mg sublingual Q5-15M PRN 12/0412/04/24 History tablet pantoprazole 20 mg tablet,delayed 20 mg PO QDAY 12/04/24 12/04/24 H istory release simvastatin 10 mg tablet 10 mg PO QDAY 12/04/24 12/04/24 Hi story Have you fallen in the past year?: No Nurse's Note: OV 12.04.24 Pt here to establish care with I. Pt reports abdominal pain stating a level 8 or 9, diarrhea, constipation, and indigestion. Reports dx cirrhosis a year ago. Denies n/v and bloody stools. Reports she still has gallbladder. Takes pantoprazole daily. [facility] Medical History (Updated 12/04/24 @ 08:11 by Mary Ann Vicente RN) Bilateral carotid artery disease SEVERINO (obstructive sleep apnea) GERD (gastroesophageal reflux disease) Essential (primary) hypertension Edema Cirrhosis Diabetes type 2 Coronary artery disease Surgical History (Updated 12/04/24 @ 08:11 by Mary Ann Vicente RN) History of percutaneous angioplasty ( 10/2014) Hx of section Hx of total knee replacement History of total hysterectomy with bilateral salpingo-oophorectomy (BSO) Hx of appendectomy Social History Smoking Status: Never smoker HPI HPI Chief Complaint: cirrhosis Details: DIAN JANE, is a 69 F who presents to the office today for establishment with [facility]. Pt refered to [facility] from PCP for PMHx of GERD. Pt new to the area and wanting to become established with GI. On interview with pt she endorses a history of cirrhosis diagnosed about one year ago. She had a diagnosis of fatty liver about 20 years ago and then was found to have fatty liver on MRI. She underwent EGD in Jun 2024 that showed esophageal varices. She had a colonoscopy at the same time. Pt has seen GI in [place] but was told there is nothing that can be done until she goes into liver failure. Pt has some heartburn and has been on PPI for many years. If she does not take it she will have breakthrough heartburn. Her bowels flucuatte between loose and formed. She has daily bowel movements. ROS Const Constitutional: Positive for fatigue; No fever(s) or weight change ENT ENT: No difficulty swallowing Cardio Cardiology: Positive for leg pain with exertion Gastro GI: Positive for abdominal pain, change in bowel habits, constipation, diarrhea and heartburn; No belching, change in stool character, coffee ground emesis, cramping, difficulty swallowing, feeling full early, incontinent of stools, Vomiting blood/hematemesis, Blood in stool, loose stools, Black,tarry stools, nausea/dyspepsia, pain with swallowing, vomiting or other Musc Musculoskeletal: Positive for joint pain, back pain, joint swelling, muscle cramps, restless legs, leg pain at night and leg pain with exertion Skin Skin: No yellowing of the eye or itchy eyes Neuro Neurology: Positive for restless legs Psych Psychiatric: No anxiety and No depression Endo Endocrine: Positive for fatigue; No weight change Aller/Imm Allergy/Immunologic: No itchy eyes Piero/Lymp Hematologic/Lymphatic: Positive for easy bruising; No easy bleeding Exam Const General: cooperative and comfortable Nutritional Appearance: average body habitus and well nourished [facility] Head: normal to inspection Ears: hearing grossly normal bilaterally Nose: external nose normal Face and sinus: normal facial exam (more content not included)... Normal [facility] Glomerular filtration rate ( GFR) estimation/1.73 sq m using serum, plasma, or whole bOrdered By: Jolanta Paz on 12-04-2024 GFR/1.73 sq M.predicted among non-blacks MDRD (S/P/Bld) [Vol rate/Area] 97 mL/min/{1.73_m2} >60 [facility] Comment on above: mL/min/1.73m2 CKD-EP I Creatinine Equation (2020) [facility] H&P Exam - Hospitalist [facility] Medical Records Department [address] [place] [address] H P Exam - Hospitalist 12/04/24 1313 MR#: [id number] Acct: [id number] Name: DIAN JANE Rep #: [id number] : 1955 69 From: Hamzah Aguirre MD PCP: JU Mishra Status:REG ER Location: ED HPI - General General Date of Admission: 12/04/24 Date of Service: 12/04/24 Chief Complaint: Abnormal labs HPI Narrative DIAN JANE, is a 69 F with past medical history signal for nonalcoholic fatty liver disease, coronary artery disease with previous PCI on antiplatelet therapy, history of anemia for which patient underwent extensive studies including EGD, capsule endoscopy as well as colonoscopy at [facility] in [facility]. Patient was diagnosed with AVMs.. Patient apparently did move to [place] and has been followed by Dr. Zaman with GI. On a routine follow-up patient was found to have hemoglobin of 5.6 was sent to the ED. Patient did complain of progressive shortness of breath with activity as well as chest tightness. Stool guaiac obtained in the emergency department came back positive. An order was given for patient to be transfused with 2 unit PRBC from the emergency department and subsequently admitted to monitored bed with consultation placed to GI [facility] Medical History Bilateral carotid artery disease SEVERINO (obstructive sleep apnea) GERD (gastroesophageal reflux disease) Essential (primary) hypertension Edema Cirrhosis Diabetes type 2 Coronary artery disease Home Medications ???Medication ???Instructions ???Recorded ???Last Taken ???Type cholecalciferol (vitamin D3) 325 50,000 unit PO QODAY 12/04/2409/28 History mcg (13,000 unit) capsule clopidogrel 75 mg tablet (Plavix) 75 mg PO DAILY 12/04/24 12/04/24 History methocarbamol 750 mg tablet 1,500 mg PO QHS 12/04/24 12/03/24 History nitroglycerin 0.4 mg sublingual 0.4 mg sublingual Q5-15M PRN chest 12/04/24 Unknown History tablet pain pantoprazole 20 mg tablet,delayed 20 mg PO QHS 12/04/24 12/03/24 Hi story release simvastatin 10 mg tablet 10 mg PO QHS 12/04/24 12/03/24 His tory Allergy/AdvReac Type Severity Reaction Status Date / Time Influenza Virus Vaccines Allergy Severe Anaphylaxis Verified 10/06/24 12:03 (flu vaccine) hydrocodone Allergy Angioedema Verified 12/04/24 09:43 Corticosteroids AdvReac Intermediate Other Verified 10/06/24 12:03 (Glucocorticoids) Surgical History History of percutaneous angioplasty ( 10/2014) Hx of section Hx of total knee replacement History of total hysterectomy with bilateral salpingo-oophorectomy (BSO) Hx of appendectomy Social History Smoking Status: Never smoker ROS ROS Narrative GENERAL: denies fever, chills, night sweats, weight loss, anorexia HEENT: denies headache, sinus congestion, or drainage, dysphagia RESPIRATORY: shortness of breath, dyspnea on exertion CARDIAC: denies chest pain, palpitations, orthopnea, PND GASTROINTESTINAL: denies abdominal pain, nausea, vomiting, melena, GENITOURINARY: denies dysuria, urgency, frequency, heamaturia EXTREMITY: denies swelling MUSCULOSKELETAL: denies current joint pain or tenderness NEUROLOGIC: denies focal numbness, weakness, tingling HEMATOLOGIC: denies easy bruising and/or hemorrhage INTEGUMENT: denies rashes PSYCHIATRIC: denies suicidal or homicidal ideation Vital Signs Vital Signs Vital Signs: 12/04/24 09:41 12/04/24 10:36 12/04/24 11:00 Temperature 98.2 F Temperature Source Oral Pulse Rate 123 H 97 Respiratory Rate 20 H 15 Respiratory Effort Short of Breath Blood Pressure 160/99 H 151/71 H Blood Pressure Mean 119 97 Blood Pressure Source Blood Pressure Position Blood Pressure Location Pulse Ox 100 96 Oxygen Delivery Method Room Air Room Air 12/04/24 11:46 12/04/24 12:00 12/04/24 12:01 Temperature 97.6 F L 97.9 F Temperature Source Oral Oral Pulse Rate 87 87 87 Respiratory Rate 15 17 18 Respiratory Effort Blood Pressure 138/65 H 142/66 H 142/66 H Blood Pressure Mean 89 91 91 Blood Pressure Source Monitor Monitor Blood Pressure Position Semi-Fowlers Semi-Fowlers Blood Pressure Location Left Arm Left Arm Pulse Ox 97 98 97 Oxygen Delivery Method Room Air Room Air Room Air 12/04/24 12:46 12/04/24 13:00 Temperature 98.1 F Temperature Source Oral Pulse Rate 85 87 Respiratory Rate 25 H 20 H Respiratory Effort Blood Pressure 128/49 H 128/49 H Blood Pressure Mean 75 75 Blood Pressure Source Monitor Blood Pressure Position Semi-Fowlers Blood Pressure Location Left (more content not included)... Normal [facility] Hematocrit Auto (Bld) [Volum e fraction]Ordered By: Naga Mcleod on 12-04-2024 Hematocrit (Bld) [Volume fraction] 20.4 % Low 37-47 [facility] Hematocrit Auto (Bld) [Volum e fraction]Ordered By: Jolanta Paz on 12-04-2024 Hematocrit (Bld) [Volume fraction] 21.3 % Low 37-47 [facility] Hemoglobin measurementOrdere d By: Naga Mcleod on 12-04-2024 Hemoglobin (Bld) [Mass/Vol] 5.7 g/dL Low 12.0-15.0 [facility] Comment on above: CRITICAL VALUE MARTINEZ D TO 12/04/24 1045 Jessica Prater.RESULTS READ BACK BY SAME. Hemoglobin measurementOrdere d By: Jolanta Paz on 12-04-2024 Hemoglobin (Bld) [Mass/Vol] 5.9 g/dL Low 12.0-15.0 [facility] Comment on above: CRITICAL VALUE MARTINEZ D TO RICKY JANG12/04/24 0918 Alexandrea Steward.RESULTS READ BACK BY RICKY JANG. Hypochromatic red blood cell detectionOrdered By: Jolanta Paz on 12-04-2024 Hypochromia Ql (Bld) 1+ [facility] Hypochromia Ql (Bld)Ordered By: Jolanta Paz on 12-04-2024 Hypochromasia 1+ [facility] Immature granulocytes/100 WB C Auto (Bld)Ordered By: Naga Mcleod on 12-04-2024 Immature granulocytes/100 WBC (Bld) 0.700 % 0.0-0.9 [facility] Comment on above: IG% - Immature Granu locytes (promyelocytes, myelocytes and metamyelocytes) > 1% indicates that a LEFT SHIFT is Present. Immature granulocytes/100 WB C Auto (Bld)Ordered By: Jolanta Paz on 12-04-2024 Immature granulocytes/100 WBC (Bld) 0.300 % 0.0-0.9 [facility] Comment on above: IG% - Immature Granu locytes (promyelocytes, myelocytes and metamyelocytes) > 1% indicates that a LEFT SHIFT is Present. International normalized rat io (INR) calculationOrdered By: Jolanta Paz on 12-04-2024 INR Coag (Bld) [Relative time] 1.5 {INR} [facility] L499.0042on 12-04-2024 Trop T High Sen 17 ng/L High <=14 [facility] Comment on above: Performed By: #### L 100.0100, L3300.0700, L300.3900, L501.6710, L500.4050, L503.5510, L101.9900 #### [facility] [address] [place], [place], [id number] L499.0043on 12-04-2024 Trop T High Sen 12 ng/L Normal <=14 [facility] Comment on above: Performed By: #### L 100.0100, L3300.0700, L300.3900, L501.6710, L500.4050, L503.5510, L101.9900 #### [facility] [address] [place], [place], [id number] L501.4021on 12-04-2024 Trop T High Sen 8 ng/L Normal <=14 [facility] Comment on above: Performed By: #### L 100.0100, L3300.0700, L300.3900, L501.6710, L500.4050, L503.5510, L101.9900 #### [facility] [address] [place], [place], [id number] Laboratory - Chemistry and C hemistry - challengeOrdered By: Naga Mcleod on 12-04-2024 AST [Catalytic activity/Vol] 39 U/L High <32 [facility] Laboratory - Chemistry and C hemistry - challengeOrdered By: Jolanta Paz on 12-04-2024 AST [Catalytic activity/Vol] 38 U/L High <32 [facility] - Hematology and Cell countsOrdered By: Jolanta Paz on 12-04-2024 Anisocytosis Ql (Bld) 1+ [facility] Lipaseon 12-04-2024 Lipase [Catalytic activity/Vol] 33 U/L Normal 13-75 [facility] Comment on above: Result Comment: Leeann larson note: LIPASE revised reference range effective 22. New Lipase methodology. Expected to produce lower values than the previous assay method. NEW Reference Range: 13 - 75 U/L Performed By: #### L 100.0100, L3300.0700, L300.3900, L501.6710, L500.4050, L503.5510, L101.9900 #### [facility] Laboratory [address] [place], [address] Lipase measurementOrdered By : Naga Mcleod on 12-04-2024 Lipase [Catalytic activity/Vol] 33 U/L 13-75 [facility] Comment on above: Please note:LIPASE r evised reference range effective 22. New Lipase methodology. Expected to produce lower values than the previous assay method. NEW Reference Range: 13 - 75 U/L Lower GI hemoglobin IA Ql (S tl)Ordered By: Naga Mcleod on 12-04-2024 Stool Occult Blood (ZEENAT) Positive Abnormal [facility] Lymphocytes Auto (Unsp spec) [#/Vol]Ordered By: Naga Mcleod on 12-04-2024 Lymphocytes (Bld) [#/Vol] 0.89 10*3/uL 0.83-4.5 1 [facility] Lymphocytes Auto (Unsp spec) [#/Vol]Ordered By: Jolanta Paz on 12-04-2024 Lymphocytes (Bld) [#/Vol] 0.93 10*3/uL 0.83-4.5 1 [facility] Lymphocytes/100 WBC Auto (Un sp spec)Ordered By: Naga Mcleod on 12-04-2024 Lymphocytes/100 WBC (Bld) 32.0 % 19-41 [facility] Lymphocytes/100 WBC Auto (Un sp spec)Ordered By: Jolanta Paz on 12-04-2024 Lymphocytes/100 WBC (Bld) 30.3 % 41 [facility] MCV (mean corpuscular volume ) determinationOrdered By: Naga Mcleod on 12-04-2024 MCV (RBC) [Entitic vol] 68.0 fL Low 81-99 [facility] MCV (mean corpuscular volume ) determinationOrdered By: Jolanta Paz on 12-04-2024 MCV (RBC) [Entitic vol] 68.3 fL Low 81-99 [facility] Mean corpuscular hemoglobin (MCH) determinationOrdered By: Naga Mcleod on 12-04-2024 MCH (RBC) [Entitic mass] 19.0 pg Low 27.0-32.0 [facility] Mean corpuscular hemoglobin (MCH) determinationOrdered By: Jolanta Paz on 12-04-2024 MCH (RBC) [Entitic mass] 18.9 pg Low 27.0-32.0 [facility] Mean corpuscular hemoglobin concentration (MCHC) determinationOrdered By: Naga Mcleod on 12-04-2024 MCHC (RBC) [Mass/Vol] 27.9 g/dL Low 32-36 [facility] Mean corpuscular hemoglobin concentration (MCHC) determinationOrdered By: Jolanta Paz on 12-04-2024 MCHC (RBC) [Mass/Vol] 27.7 g/dL Low 32-36 [facility] Mean platelet volume determi nationOrdered By: Naga Mcleod on 12-04-2024 Platelet mean volume (Bld) [Entitic vol] 10.4 fL 6.2-12.0 [facility] Mean platelet volume determi nationOrdered By: Jolanta Paz on 12-04-2024 Platelet mean volume (Bld) [Entitic vol] 10.2 fL 6.2-12.0 [facility] Monocyte percentageOrdered B y: Naag Mcleod on 12-04-2024 Monocytes/100 WBC (Bld) 14.7 % High 0-10 [facility] Monocyte percentageOrdered B y: Jolanta Paz on 12-04-2024 Monocytes/100 WBC (Bld) 12.1 % High 0-10 [facility] Neutrophil percentageOrdered By: Naga Mcleod on 12-04-2024 Neutrophils/100 WBC (Bld) 46.9 % Low 47-70 [facility] Neutrophil percentageOrdered By: Jolanta Paz on 12-04-2024 Neutrophils/100 WBC (Bld) 50.8 % 47-70 [facility] No Panel InformationOrdered By: Naga Mcleod on 12-04-2024 Troponin T High Sensitivity 8 ng/L <14 [facility] Nucleated red blood cell per centageOrdered By: Naga Mcleod on 12-04-2024 Nucleated RBC/100 WBC (Bld) [Ratio] 0 % 0-5 [facility] Nucleated red blood cell per centageOrdered By: Jolanta Paz on 12-04-2024 Nucleated RBC/100 WBC (Bld) [Ratio] 0 % 0-5 [facility] Pathologist review Braxton (Unsp spec) [Interp]Ordered By: Naga Mcleod on 12-04-2024 Differential Pathologist's Review [facility] Differential Pathologist's Review N/A [facility] Comment on above: Previous reported re sult: January gita Edited by: LAURA on 12/08/24:1437 AMENDED REPORT 12/08/24 1437 PATH REV previously reported as: Shanelle pelayo Pathologist review Braxton (Unsp spec) [Interp]Ordered By: Jolanta Paz on 12-04-2024 Differential Pathologist's Review [facility] Comment on above: Previous reported re sult: May foll Edited by: LAURA on 12/08/24:1439 AMENDED REPORT 12/08/24 1439 PATH REV previously reported as: Shanelle pelayo Previous reported result: N/A Edited by: LAURA on 12/08/24:1511 AMENDED REPORT 12/08/24 1511 PATH REV previously reported as: N/A Platelet countOrdered By: Jose Mcleod on 12-04-2024 Platelets (Bld) [#/Vol] 119 10*3/uL Low 150-450 [facility] Platelet countOrdered By: Laurence Paz on 12-04-2024 Platelets (Bld) [#/Vol] 127 10*3/uL Low 150-450 [facility] Platelet estimateOrdered By: Jolanta Paz on 12-04-2024 Platelets LM Ql (Bld) SLT DEC ADEQ [facility] Platelets LM Ql (Bld)Ordered By: Jolanta Paz on 12-04-2024 Platelet Estimate T AUG ADEQ [facility] Potassium (Unsp spec) [Mass/ Vol]Ordered By: Naga Mcleod on 12-04-2024 Potassium [Moles/Vol] 3.4 mmol/L 3.3-5.1 [facility] Potassium (Unsp spec) [Mass/ Vol]Ordered By: Jolanta Paz on 12-04-2024 Potassium [Moles/Vol] 3.3 mmol/L 3.3-5.1 [facility] Potassium measurement (mass/ volume)Ordered By: Jolanta Paz on 12-04-2024 Potassium (Unsp spec) [Mass/Vol] 3.3 mmol/L 3.3-5.1 [facility] Prothrombin Time w/INRon INR Coag (PPP) [Relative time] 1.5 {INR} Normal [facility] Comment on above: Performed By: #### L 100.0100, L3300.0700, L300.3900, L501.6710, L500.4050, L503.5510, L101.9900 #### [facility] [address] [place], [address] PT Coag (PPP) [Time] 18.7 s High 11.7-14.9 [facility] Comment on above: Performed By: #### L 100.0100, L3300.0700, L300.3900, L501.6710, L500.4050, L503.5510, L101.9900 #### [facility] [address] [place], [address] Prothrombin timeOrdered By: Jolanta Paz on 12-04-2024 PT Coag (PPP) [Time] 18.7 s High 11.7-14.9 [facility] RBC Auto (Bld) [#/Vol]Ordere d By: Naga Mcleod on 12-04-2024 RBC (Bld) [#/Vol] 3.00 10*6/uL Low 4.2-5.4 [facility] RBC Auto (Bld) [#/Vol]Ordere d By: Jolanta Paz on 12-04-2024 RBC (Bld) [#/Vol] 3.12 10*6/uL Low 4.2-5.4 [facility] Review by pathologistOrdered By: Naga Mcleod on 12-04-2024 Pathologist review Braxton (Unsp spec) [Interp] N/A [facility] Comment on above: Previous reported re sult: Shanelle pelayo Edited by: LAURA on 12/08/24:1437 AMENDED REPORT 12/08/24 1437 PATH REV previously reported as: Shanelle pelayo Review by pathologistOrdered By: Jolanta Paz on 12-04-2024 Pathologist review Braxton (Unsp spec) [Interp] Reviewed [facility] Comment on above: Previous reported re sult: January gita Edited by: LAURA on 12/08/24:1439 AMENDED REPORT 12/08/24 1439 PATH REV previously reported as: Shanelle pelayo Previous reported result: N/A Edited by: LAURA on 12/08/24:1511 AMENDED REPORT 12/08/24 1511 PATH REV previously reported as: N/A Previous reported result: January gita Edited by: JAN on 12/17/24:1542SEE REPORT IN PATIENT'S EMR AMENDED REPORT 12/17/24 1542 PATH REV previously reported as: Shanelle pelayo Serum creatinine measurement (mass/volume)Ordered By: Naga Mcleod on 12-04-2024 Creatinine [Mass/Vol] 0.57 mg/dL Low 0.70-1.20 [facility] Serum creatinine measurement (mass/volume)Ordered By: Jolanta Paz on 12-04-2024 Creatinine [Mass/Vol] 0.62 mg/dL Low 0.70-1.20 [facility] Serum globulin measurementOr dered By: Naga Mcleod on 12-04-2024 Globulin (S) [Mass/Vol] 2.8 g/dL 2.2-4.2 [facility] Serum globulin measurementOr dered By: Jolanta Paz on 12-04-2024 Globulin (S) [Mass/Vol] 2.9 g/dL 2.2-4.2 [facility] Serum glucose measurement (m ass/volume)Ordered By: Naga Mcleod on 12-04-2024 Glucose [Mass/Vol] 111 mg/dL High 70-99 [facility] Serum glucose measurement (m ass/volume)Ordered By: Jolanta Paz on 12-04-2024 Glucose [Mass/Vol] 149 mg/dL High 70-99 [facility] Serum or plasma C reactive p rotein measurement (mass/volume)Ordered By: Jolanta Paz on 12-04-2024 CRP [Mass/Vol] mg/L 0.0-3.0 [facility] Serum or plasma alanine morocho otransferase (ALT) measurementOrdered By: Naga Mcleod on 12-04-2024 ALT [Catalytic activity/Vol] 16 U/L <35 [facility] Serum or plasma alanine morocho otransferase (ALT) measurementOrdered By: Jolanta Paz on 12-04-2024 ALT [Catalytic activity/Vol] 17 U/L <35 [facility] Serum or plasma albumin harmony urement (mass/volume)Ordered By: Naga Mcleod on 12-04-2024 Albumin [Mass/Vol] 3.4 g/dL 3.4-4.8 [facility] Serum or plasma albumin harmony urement (mass/volume)Ordered By: Jolanta Paz on 12-04-2024 Albumin [Mass/Vol] 3.4 g/dL 3.4-4.8 [facility] Serum or plasma albumin/glob ulin mass ratioOrdered By: Naga Mcleod on 12-04-2024 Albumin/Globulin [Mass ratio] 1.2 {ratio} 0.9-2.4 [facility] Serum or plasma albumin/glob ulin mass ratioOrdered By: Jolanta Paz on 12-04-2024 Albumin/Globulin [Mass ratio] 1.2 {ratio} 0.9-2.4 [facility] Serum or plasma alkaline chacha sphatase measurementOrdered By: Naga Mcleod on 12-04-2024 ALP [Catalytic activity/Vol] 142 U/L High 35-104 [facility] Serum or plasma alkaline chacha sphatase measurementOrdered By: Jolanta Paz on 12-04-2024 ALP [Catalytic activity/Vol] 144 U/L High 35-104 [facility] Serum or plasma calcium harmony urement (mass/volume)Ordered By: Naga Mcleod on 12-04-2024 Calcium [Mass/Vol] 8.5 mg/dL 7.6-11.0 [facility] Serum or plasma calcium harmony urement (mass/volume)Ordered By: Jolanta Paz on 12-04-2024 Calcium [Mass/Vol] 8.6 mg/dL 7.6-11.0 [facility] Serum or plasma urea nitroge n measurement (mass/volume)Ordered By: Naga Mcleod on 12-04-2024 Urea nitrogen [Mass/Vol] 10 mg/dL 12-21 [facility] Serum or plasma urea nitroge n measurement (mass/volume)Ordered By: Jolanta Paz on 12-04-2024 Urea nitrogen [Mass/Vol] 11 mg/dL 12-21 [facility] Sodium levelOrdered By: Radha Mcleod on 12-04-2024 Sodium [Moles/Vol] 139 mmol/L 133-145 [facility] Sodium levelOrdered By: Delores Paz on 12-04-2024 Sodium [Moles/Vol] 139 mmol/L 133-145 [facility] Stool Occult Blood iFOBon STOB Positive Normal [facility] Comment on above: Performed By: #### L 100.0100, L3300.0700, L300.3900, L501.6710, L500.4050, L503.5510, L101.9900 #### [facility] Laboratory [facility] [address] [place], [place], [id number] Stool gastrointestinal hemog lobin detection by immunologic methodOrdered By: Naga Mcleod on 12-04-2024 Lower GI hemoglobin IA Ql (Stl) Positive Abnormal [facility] Target cell detectionOrdered By: Jolanta Paz on 12-04-2024 Target cells LM Ql (Bld) 1+ [facility] Target cells LM Ql (Bld)Orde red By: Jolanta Paz on 12-04-2024 Target Cells 1+ [facility] Total proteinOrdered By: Justin Mcleod on 12-04-2024 Protein [Mass/Vol] 6.2 g/dL 5.9-8.4 [facility] Total proteinOrdered By: Madeleine Paz on 12-04-2024 Protein [Mass/Vol] 6.3 g/dL 5.9-8.4 [facility] Troponin T.cardiac High sens itivity method [Mass/Vol]Ordered By: Naga Mcleod on 12-04-2024 Troponin T High Sensitivity 4 Hour 12 ng/L <14 [facility] Troponin T High Sensitivity 2 Hour 17 ng/L High <14 [facility] Troponin T.cardiac [Mass/vol ume] in Serum or Plasma by High sensitivity methodOrdered By: Naga Mcleod on 12-04-2024 Troponin T.cardiac High sensitivity method [Mass/Vol] 12 ng/L <14 [facility] Type AND Screenon 12-04-2024 Ab SCREEN GEL Negative Normal [facility] Comment on above: Order Comment: A Performed By: #### L 100.0100, L3300.0700, L300.3900, L501.6710, L500.4050, L503.5510, L101.9900 #### [facility] [address] [facility] [place], [address] Venous blood ammonia measure mentOrdered By: Jolanta Paz on 12-04-2024 Ammonia (P) [Moles/Vol] 40.7 umol/L 11-51 [facility] White blood cell (WBC) count Ordered By: Naga Mcleod on 12-04-2024 WBC (Bld) [#/Vol] 2.8 10*3/uL Low 4.4-11.0 [facility] White blood cell (WBC) count Ordered By: Jolanta Paz on 12-04-2024 WBC (Bld) [#/Vol] 3.1 10*3/uL Low 4.4-11.0 [facility] Brain/Head without Contrasto n 10-06-2024 Brain/Head without Contrast [facility] Imaging Services [address] [place] [address] Brain/Head without Contrast MR#: [id number] Acct: [id number] Name: DIAN JANE Rep #: [id number] : 1955 F 69 From: Krishna Herrera MD PCP: Care Physician,No Primary Status: REG ER Study: Brain/Head without Contrast Date of Exam: 10/29 Exam# [id number] Ordering Dr: Guanaco Martinez DO EXAM: BRAIN/HEAD WITHOUT CONTRAST CLINICAL HISTORY: Pain COMPARISON: None. TECHNIQUE: Noncontrast images of the head with multiplanar reconstructions. Dose reduction techniques were used including intermediate exposure control (AEC),iterative reconstruction technique, and/or mA and/or KV dose adjustments based on patient's size. FINDINGS: CT HEAD FINDINGS: No acute intracranial hemorrhage, mass, mass effect, midline shift or pathologic extra-axial fluid collection. No hydrocephalus. Age- appropriate cerebral volume and white matter. Visualized paranasal sinuses and mastoid air cells are clear. The calvarium is grossly intact. CT/Brain/Head without Contrast IMPRESSION: No CT evidence of acute intracranial pathology. Reading Location: [facility] CC: Dr. Guanaco Martinez DO; No Primary Care Physician Manager Corporate Communications: Signed Normal [facility] CNOVon 10-06-2024 CNOV Office Visit ([facility] ) ----- DIAN JANE ([id number]) 1955 F Date Time Provider Department 10/06/24 11:15 AM ANITHA MAGANA [facility] During your visit today, we recorded the following information about you: Temperature Pulse Respiration Blood pressure 98.6 degrees 95/minute 20/minute 122/72 Weight 118.7 kg Magana, VISHAL Welsh 10/06/2024 12:08 PM Signed This note was created using [employer]. Subjective Dian Jane is a 69 year old female. 69 year old female with PMH hyperlipidemia and GERD presents for eye complaints Acute onset last night +left eye +redness +pain Sharp pain behind eye +photosensitive +headache Denies URI sx Denies loss of vision or double vision Denies skin rash or lesions Wears corrective lens Has seen eye doctor approximately 6 months ago The history is provided by the patient. No speech language pathologist travel was used. Eye Problem This is a new problem. The current episode started yesterday. The problem occurs constantly. The problem has been unchanged. Associated symptoms include headaches. Pertinent negatives include no abdominal pain, anorexia, arthralgias, change in bowel habit, chest pain, chills, congestion, coughing, diaphoresis, fatigue, fever, joint swelling, myalgias, nausea, neck pain, numbness, rash, sore throat, swollen glands, urinary symptoms, vertigo, visual change, vomiting or weakness. Nothing aggravates the symptoms. She has tried nothing for the symptoms. The treatment provided no relief. No past medical history on file. No past surgical history on file. ALLERGIES Cortisone and Influenza Virus Vaccines MEDICATIONS clopidogrel (PLAVIX) [address] (PROTONIX) 40 mg tablet simvastatin (ZOCOR) 20 mg tablet NITROFURANTOIN ORAL Take by mouth. No family history on file. Social History Tobacco Use Smoking status: Never Passive exposure: Never Smokeless tobacco: Never Review of Systems Constitutional: Negative for chills, diaphoresis, fatigue and fever. HENT: Negative for congestion and sore throat. Respiratory: Negative for cough. Cardiovascular: Negative for chest pain. Gastrointestinal: Negative for abdominal pain, anorexia, change in bowel habit, nausea and vomiting. Musculoskeletal: Negative for arthralgias, joint swelling, myalgias and neck pain. Skin: Negative for rash. Neurological: Positive for headaches. Negative for vertigo, weakness and numbness. Objective BP 122/72 Pulse 95 Temp 37 ?C (98.6 ?F) Resp 20 Wt 118.7 kg (261 lb 11 oz) SpO2 98% Physical Exam Constitutional: Appearance: Normal appearance. She is obese. HENT: Head: Normocephalic and atraumatic. Eyes: Comments: OS with findings consistent with subconjunctival hemorrhage +photosensitivity +sluggish reaction on pupil Cardiovascular: Rate and Rhythm: Normal rate and regular rhythm. Pulmonary: Effort: Pulmonary effort is normal. No respiratory distress. Breath sounds: Normal breath sounds. No stridor. No wheezing or rhonchi. Assessment and Plan ASSESSMENT/PLAN: 1. Acute left eye pain - ICD9: 379.91, ICD10: H57.12 (primary diagnosis) Occurred yesterday NO trauma or injury Findings are consistent with subconjunctival hemorrhage, However She is complaining of pain She is complaining of photosensitivity and sluggish pupil Patient would benefit from more comprehensive exam including tonometry and slit lamp examination and possible advanced imaging given pain and headache 2. Subconjunctival hemorrhage of left eye - ICD9: 372.72, ICD10: H11.32 Initial clinical impression, However, she has red flags she is displaying and limitations of express care referred to ED Anitha Magana APRN.TELEPHONE CLERK TELEGRAPH OFFICE Allergies As of Date: 10/06/2024 Noted Allergy Reaction CORTISONE 10/06/2024 14 - Other: See Comments Comments: Raises BP INFLUENZA VIRUS VACCINES 10/06/2024 10 - Anaphylaxis Date Reviewed: 10/06/2024 Reviewed by: Deanne Blank MA - Fully Assessed Reason for Visit: Headache [52] Cmt: Left eye swollen and red, sharp pain in holiness last night, still have dull ache behind left eye x 1 day Primary Visit Diagnosis:Acute left eye pain [H57.12] Other Visit Diagnosis:Subconjunctival hemorrhage of left eye [H11.32] Prescriptions as of 10/06/2024 - clopidogrel (PLAVIX) 75 mg tablet - pantoprazole DR (PROTONIX) 40 mg tablet - simvastatin (ZOCOR) 20 mg tablet - NITROFURANTOIN ORAL Take by mouth. Problem List As Of Date: 10/06/2024 (None) Encounter Status:Closed by ANITHA MAGANA on 10/06/24 Normal [facility] Emergency Department Summary on 10-06-2024 Emergency Department Summary [facility] Medical Records Department [address] [place] [address] Emergency Department Summary 10/06/24 MR#: [id number] Acct: [id number] Name: DIAN JANE Rep #: [id number] : 1955 69 From: Guanaco Martinez DO PCP: Care Physician,No Primary Status:DEP ER Location: ED HPI History of Present Illness Chief Complaint: Eye Problem Informant: patient Onset/Context/Timing Location: Left Eye Onset: Yesterday Context: Sudden Onset Timing: Continuous Worsened by: Bright lights Relieved by: Nothing Associated Symptoms Associated Symptoms - Eyes: Itching, Pain, Photophobia and Redness; Negative for Burning, Crusting, Drainage, Eyelid swelling or Matting History of injury: No Visual correction: Glasses Narrative Narrative: Patient presents with left eye redness that began yesterday. Patient states she started having some pain and mild redness in her left eye and left holiness area last night. Patient states that when she woke up today, the redness was much worse. Patient admits to some itching and photophobia. Patient denies any discharge or drainage. Patient denies any matting or crusting. Patient denies any visual changes. Patient denies any trauma or injury. Patient states she was having some pain over the left temporal area. PFS PFS Medical History (Updated 10/06/24 @ 16:[address] Guanaco Martinez DO) Cirrhosis Diabetes type 2 Coronary artery disease Allergy/AdvReac Type Severity Reaction Status Date / Time Influenza Virus Vaccines Allergy Severe Anaphylaxis Verified 10/06/24 12:03 (flu vaccine) Corticosteroids AdvReac Intermediate Other Verified 10/06/24 12:03 (Glucocorticoids) Surgical History (Updated 10/06/24 @ 16:[address] Guanaco Martinez DO) Hx of section Hx of total knee replacement History of total hysterectomy with bilateral salpingo-oophorectomy (BSO) Hx of appendectomy Social History Smoking Status: Never smoker ROS ROS ED Constitutional Constitutional ED: Reports chills and subjective; Denies fever(s) Eyes Eyes: Denies blurry vision or change in vision ENT ENT ED: Denies rhinorrhea or sore throat Cardiovascular Cardiovascular: Denies chest pain or palpitations Respiratory/Chest Respiratory/Chest: Denies cough or dyspnea Gastrointestinal Gastrointestinal: Denies nausea or vomiting Genitourinary Genitourinary ED: Denies dysuria or hematuria Musculoskeletal Musculoskeletal: Denies back pain or neck pain Integumentary Denies abscess or rash Neurologic Neurologic: Reports headache(s); Denies weakness Allergic/Immunologic Allergic/Immunologic ED: Denies mouth swelling or urticaria EXAM Physical Exam Const Vital Signs: 10/06/24 11:58 Temperature 96.9 F L Temperature Source Temporal Pulse Rate 88 Respiratory Rate 16 Blood Pressure 159/82 H Blood Pressure Mean 107 Pulse Ox 99 Oxygen Delivery Method Room Air Positive well nourished and well developed General Appearance ED: well developed and NAD HEENT HEENT Narrative: There is minimal tenderness over the left temporal artery. There is some mild tenderness over the left frontal area. There is no bony crepitance or step-off. Eyes Eyes Narrative: Pupils are equal, round, and reactive to light bilaterally. Extraocular muscles are intact. Conjunctiva was somewhat injected on the right. There is also a subconjunctival hemorrhage on the lateral sclera. Anterior chambers are clear. There is no hyphema. There is no cell or flare. Cardio regular rate and regular rhythm Neuro oriented x3, CN's II-XII intact bilaterally, moves all extremities and no sensory deficits noted Sensorium / Orientation: alert Motor Exam: strength 5/5 throughout MDM MDM MDM Narrative Medical decision making narrative: Differential diagnosis includes temporal arteritis, subconjunctival hemorrhage, acute glaucoma, corneal abrasion, iritis, and intracranial bleeding. CT scan of the brain will be obtained to assess for intracranial bleeding. Sed rate will be obtained to assess for temporal arteritis. Radiography Diagnostic Testing: CT scan of the brain was obtained. There is no acute intracranial abnormality. This was interpreted by the radiologist and was also independently reviewed by myself. Treatment and Re-Evaluation Narrative: Tetracaine and fluorescein dye was applied to the left eye. Under slit-lamp examination, there is no corneal abrasion or foreign body noted. Anterior chamber was clear. There is no hyphema. There is no cell or flare. Jairon-Pen was used to measure intraocular pressure. This was 17. Patient was advised of her findings. Patient was instructed to follow-up with her primary care physician in 5 to 7 days. Patient was instructed to return i (more content not included)... [facility] [facility] Sed Rateon 10-06 SED RATE 12 mm/hr Normal 0-30 [facility] Comment on above: Performed By: #### L 100.0100, L3300.0700, L300.3900, L501.6710, L500.4050, L503.5510, L101.9900 #### [facility] [address] [place], [address] Erythrocyte sedimentation ra teOrdered By: Guanaco Martinez on 10-06-2024 ESR (Bld) [Velocity] 12 mm/h 0-30 [facility] Vital Signs Date Time Vital Sign Value Performing Clinician Faci lity 01-08-2025 08:45-0400 Body height 157.[address] Guanaco Martinez DO Work Phone: [facility] 01-08-2025 08:45-0400 Body mass index (BMI) [Ratio] 45.1 kg/m2 Dr. Guanaco Martinez DO Work Phone: [facility] 01-08-2025 08:45-0400 Body weight 112.[address] Guanaco Martinez DO Work Phone: [facility] 01-08-2025 08:45-0400 Diastolic blood pressure 56 mm[Hg] Dr. Guanaco Martinez DO Work Phone: [facility] 01-08-2025 08:45-0400 Heart rate 68 /min Dr. Guanaco Martinez DO Work Phone: [facility] 01-08-2025 08:45-0400 Respiratory rate 16 /min Dr. Guanaco Martinez DO Work Phone: [facility] 01-08-2025 08:45-0400 Systolic blood pressure 111 mm[Hg] Dr. Guanaco Martinez DO Work Phone: [facility] 01-06-2025 10:30-0400 Body temperature 98.2 [degF] Venkata Danielle MD Work Phone: [facility] 01-06-2025 10:30-0400 Body weight 111.3 kg Venkata Danielle MD Work Phone: [facility] 01-06-2025 10:30-0400 Diastolic blood pressure 78 mm[Hg] Venkata Danielle MD Work Phone: [facility] 01-06-2025 10:30-0400 Heart rate 72 /min Venkata Danielle MD Work Phone: [facility] 01-06-2025 10:30-0400 Respiratory rate 18 /min Venkata Danielle MD Work Phone: [facility] 01-06-2025 10:30-0400 SaO2% (BldA) [Mass fraction] 98 % Venkata Danielle MD Work Phone: [facility] 01-06-2025 10:30-0400 Systolic blood pressure 110 mm[Hg] Venkata Danielle MD Work Phone: [facility] 12-19-2024 11:08-0400 Body height 157.5 cm Humberto Barrera MD Work Phone: [facility] 12-19-2024 11:08-0400 Body mass index (BMI) [Ratio] 44.99 kg/m2 Humberto Barrera MD Work Phone: [facility] 12-19-2024 11:08-0400 Body weight 111.58 kg Humberto Barrera MD Work Phone: [facility] 12-11-2024 10:16-0400 Body height 157.[address] Guanaco Martinez DO Work Phone: [facility] 12-11-2024 10:16-0400 Body mass index (BMI) [Ratio] 46.3 kg/m2 Dr. Guanaco Martinez DO Work Phone: [facility] 12-11-2024 10:16-0400 Body weight 114.[address] Guanaco Martinez DO Work Phone: [facility] 12-11-2024 10:16-0400 Diastolic blood pressure 80 mm[Hg] Dr. Guanaco Martinez DO Work Phone: 3(879)567-102642 [place] [address] 12-11-2024 10:16-0400 Heart rate 65 /min Dr. Guanaco Martinez DO Work Phone: 0(224)346-508842 [place] [address] 12-11-2024 10:16-0400 SaO2% (BldA) [Mass fraction] 97 % Dr. Guanaco Martinez DO Work Phone: 5(240)897-717942 [place] [address] 12-11-2024 10:16-0400 Systolic blood pressure 121 mm[Hg] Dr. Guanaco Martinez DO Work Phone: 6(172)948-984542 [place] [address] 12-06-2024 09:00-0400 Body temperature 98.2 [degF] Dr. Guanaco Martinez DO Work Phone: 1(869)060-597342 [place] [address] 12-06-2024 09:00-0400 Diastolic blood pressure 71 mm[Hg] Dr. Guanaco Martinez DO Work Phone: [facility] 12-06-2024 09:00-0400 Heart rate 69 /min Dr. Guanaco Martinez DO Work Phone: 9(266)036-789542 [place] [address] 12-06-2024 09:00-0400 Respiratory rate 14 /min Dr. Guanaco Martinez DO Work Phone: 0(280)245-515942 [place] [address] 12-06-2024 09:00-0400 SaO2% (BldA) [Mass fraction] 96 % Dr. Guanaco Martinez DO Work Phone: 1(588)938-231442 [place] [address] 12-06-2024 09:00-0400 Systolic blood pressure 104 mm[Hg] Dr. Guanaco Martinez DO Work Phone: [facility] 12-05-2024 16:42-0400 Body height 157.[address] Guanaco Martinez DO Work Phone: 3(875)053-313642 [place] [address] 12-05-2024 16:42-0400 Body mass index (BMI) [Ratio] 46.7 kg/m2 Dr. Guanaco Martinez DO Work Phone: 0(966)254-514142 [place] [address] 12-05-2024 16:42-0400 Body weight 115.[address] Guanaco Martinez DO Work Phone: 0(626)369-999614 [place] [address] 12-05-2024 14:15-0400 Diastolic blood pressure 79 mm[Hg] Dr. Guanaco Martinez DO Work Phone: 8(208)100-020814 [place] [address] 12-05-2024 14:15-0400 Heart rate 86 /min Dr. Guanaco Martinez DO Work Phone: 4(865)879-150514 [place] [address] 12-05-2024 14:15-0400 Systolic blood pressure 131 mm[Hg] Dr. Guanaco Martinez DO Work Phone: 2(935)463-437414 [place] [address] 12-05-2024 13:35-0400 Body temperature 98 [degF] Dr. Guanaco Martinez DO Work Phone: 4(617)688-225614 [place] [address] 12-05-2024 13:35-0400 Respiratory rate 20 /min Dr. Guanaco Martinez DO Work Phone: 8(723)553-214542 [place] [address] 12-05-2024 13:35-0400 SaO2% (BldA) [Mass fraction] 94 % Dr. Guanaco Martinez DO Work Phone: 3(420)909-965342 [place] [address] 12-05-2024 11:13-0400 Body height 157.[address] Guanaco Martinez DO Work Phone: 0(662)175-341442 [place] [address] 12-05-2024 11:13-0400 Body weight 115.[address] Guanaco Martinez DO Work Phone: 7(283)376-027142 [place] [address] 12-04-2024 17:11-0400 Body height 157.[address] Guanaco Martinez DO Work Phone: 6(120)100-896242 [place] [address] 12-04-2024 17:11-0400 Body mass index (BMI) [Ratio] 46.7 kg/m2 Dr. Guanaco Martinez DO Work Phone: 3(294)939-728442 [place] [address] 12-04-2024 17:11-0400 Body weight 115.[address] Guanaco Martinez DO Work Phone: 3(226)014-042942 [place] [address] 12-04-2024 16:00-0400 Diastolic blood pressure 77 mm[Hg] Dr. Guanaco Martinez DO Work Phone: 1(044)648-424614 [place] [address] 12-04-2024 16:00-0400 Heart rate 75 /min Dr. Guanaco Martinez DO Work Phone: 4(354)147-929614 [place] [address] 12-04-2024 16:00-0400 Respiratory rate 16 /min Dr. Guanaco Martinez DO Work Phone: 8(556)138-245614 [place] [address] 12-04-2024 16:00-0400 SaO2% (BldA) [Mass fraction] 98 % Dr. Guanaco Martinez DO Work Phone: 9(672)251-708914 [place] [address] 12-04-2024 16:00-0400 Systolic blood pressure 156 mm[Hg] Dr. Guanaco Martinez DO Work Phone: 6(177)720-415614 [place] [address] 12-04-2024 15:02-0400 Body temperature 98 [degF] Dr. Guanaco Martinez DO Work Phone: 1(095)056-678714 [place] [address] 12-04-2024 08:22-0400 Body mass index (BMI) [Ratio] 46.7 kg/m2 Dr. Guanaco Martinez DO Work Phone: 3(787)526-216714 [place] [address] 12-04-2024 08:22-0400 Body weight 115.[address] Guanaco Martinez DO Work Phone: 2(641)139-827042 [place] [address] 12-04-2024 08:22-0400 Diastolic blood pressure 62 mm[Hg] Dr. Guanaco Martinez DO Work Phone: 2(564)213-993914 [place] [address] 12-04-2024 08:22-0400 SaO2% (BldA) [Mass fraction] 97 % Dr. Guanaco Martinez DO Work Phone: 1(528)198-161842 [place] [address] 12-04-2024 08:22-0400 Systolic blood pressure 138 mm[Hg] Dr. Guanaco Martinez DO Work Phone: [facility] 10-06-2024 16:52-0500 Body temperature 97.9 [degF] Dr. Guanaco Martinez DO Work Phone: [facility] 10-06-2024 16:52-0500 Diastolic blood pressure 84 mm[Hg] Dr. Guanaco Martinez DO Work Phone: [facility] 10-06-2024 16:52-0500 Heart rate 81 /min Dr. Guanaco Martinez DO Work Phone: 6(272)486-523642 [place] [address] 10-06-2024 16:52-0500 Respiratory rate 18 /min Dr. Guanaco Martinez DO Work Phone: 4(660)515-318442 [place] [address] 10-06-2024 16:52-0500 SaO2% (BldA) [Mass fraction] 99 % Dr. Guanaco Martinez DO Work Phone: [facility] 10-06-2024 16:52-0500 Systolic blood pressure 132 mm[Hg] Dr. Guanaco Martinez DO Work Phone: [facility] 10-06-2024 11:58-0500 Body mass index (BMI) [Ratio] 47.7 kg/m2 Dr. Guanaco Martinez DO Work Phone: [facility] 10-06-2024 11:58-0500 Body weight 118.[address] Guaanco Martinez DO Work Phone: [facility] 10-06-2024 11:33-0500 Body temperature 98.6 [degF] Anitha Magana DIVER TENDER.TELEPHONE CLERK TELEGRAPH OFFICE Work Phone: [facility] 10-06-2024 11:33-0500 Body weight 118.7 kg Anitha Magana DIVER TENDER.TELEPHONE CLERK TELEGRAPH OFFICE Work Phone: [facility] 10-06-2024 11:33-0500 Diastolic blood pressure 72 mm[Hg] Anitha Magana DIVER TENDER.TELEPHONE CLERK TELEGRAPH OFFICE Work Phone: [facility] 10-06-2024 11:33-0500 Heart rate 95 /min Anitha Magana DIVER TENDER.TELEPHONE CLERK TELEGRAPH OFFICE Work Phone: [facility] 10-06-2024 11:33-0500 Respiratory rate 20 /min Anitha Magana DIVER TENDER.TELEPHONE CLERK TELEGRAPH OFFICE Work Phone: [facility] 10-06-2024 11:33-0500 SaO2% (BldA) [Mass fraction] 98 % Anitha Magana DIVER TENDER.TELEPHONE CLERK TELEGRAPH OFFICE Work Phone: [facility] 10-06-2024 11:33-0500 Systolic blood pressure 122 mm[Hg] Anitha Magana DIVER TENDER.TELEPHONE CLERK TELEGRAPH OFFICE Work Phone: [facility] Encounters Encounter Date Encounter Type Care Provider Facility Start: 02-26-2025 ambulatory [facility] Facility:[facility] Start: 02-24-2025 ambulatory [facility] Facility:[facility] Start: 01-28-2025 End: 01-28-[address] Guanaco Martinez DO Work Phone: [facility] Work Phone: Start: 01-28-2025 End: 01-28-[address] Humberto Barrera MD -Sleep Lab Work Phone: Start: 01-28-2025 End: 01-28-2025 ambulatory Humberto Barrera Facility:[facility] Start: 01-08-2025 End: 01-08-[address] Harpal Cruz MD -[facility] Work Phone: Start: 01-08-2025 End: 01-08-2025 ambulatory [facility] Facility:[facility] Start: 01-06-2025 End: 01-06-2025 Follow-up encounter Venkata Danielle MD Work Phone: [facility] Comment on above: Results (US DVT (-)) Start: 01-06-2025 ambulatory VENKATA DANIELLE Facili ty:[facility] Start: 01-06-2025 End: 01-06-2025 Subsequent hospital visit by physician [facility] Work Phone: Radiology Comment on above: Pain of left calf [M 79.662] Start: 01-06-2025 End: 01-06-2025 Subsequent hospital visit by physician Rosalina [facility] Work Phone: Radiology Comment on above: Pain of left heel [M 79.672] Start: 01-06-2025 End: 01-06-2025 Patient encounter procedure Venkata Danielle MD Work Phone: [facility] Comment on above: Pain of left heel (P rimary Dx); Heel spur, left; Pain of left calf Start: 01-06-2025 End: 01-06-2025 ambulatory [facility] Facility:[facility] Start: 12-20-2024 End: 12-20-2024 Patient encounter procedure Jolanta ORTEGA -Ultrasound [facility] Work Phone: Start: 12-19-2024 End: 12-19-2024 Telemedicine consultation with patient Humberto Barrera MD Work Phone: Sleep Medicine [facility] Comment on above: SEVERINO (obstructive sle ep apnea) (Primary Dx); Morbid obesity with BMI of 40.0-44.9, adult Start: 12-19-2024 End: 12-20-2024 ambulatory HUMBERTO BARRERA Facility:[facility] Start: 12-11-2024 End: 12-11-2024 Patient encounter procedure Jolanta ORTEGA -[facility] Work Phone: Start: 12-11-2024 End: 12-11-[address] Guanaco Martinez DO Work Phone: [facility] Work Phone: Start: 12-11-2024 End: 12-11-2024 ambulatory [facility] Facility:[facility] Start: 12-06-2024 Non-patient / Non-visit Francisco Garcia nd, DO -[facility] Start: 12-06-2024 Non-patient / Non-visit Dr. Marcos MAS -[facility] Work Phone: Start: 12-05-2024 Non-patient / Non-visit Francisco Garcia nd, DO -[facility] Start: 12-05-2024 End: 12-05-2024 ambulatory Harpal Cruz Facility:[facility] Start: 12-05-2024 End: 12-05-2024 Non-patient / Non-visit Dr. Harpal Cruz MD -[facility] Work Phone: Start: 12-05-2024 Non-patient / Non-visit Dr. Marcos MAS -[facility] Work Phone: Start: 12-04-2024 Non-patient / Non-visit Dr. Marcos MAS -[facility] Work Phone: Start: 12-04-2024 ambulatory [facility]: [facility] Start: 12-04-2024 End: 12-06-2024 Evaluation and management of inpatient Dr. Hamzah Aguirre MD -Progressive Care Unit Work Phone: Start: 12-04-2024 End: 12-04-[address] Guanaco Martinez DO Work Phone: [facility] Work Phone: Start: 12-04-2024 End: 12-04-2024 Patient encounter procedure Jolanta ORTEGA -Laboratory Work Phone: Start: 12-04-2024 End: 12-04-2024 Patient encounter procedure Jolanta ORTEGA -[facility] Work Phone: Start: 12-04-2024 End: 12-04-2024 ambulatory [facility] Facility:[facility] Start: 12-04-2024 End: 12-04-2024 ambulatory Jolanta Paz Facility:[facility] Start: 11-16-2024 ambulatory [facility] Facility:[facility] Start: 10-06-2024 End: 10-06-2024 Emergency department patient visit Dr. Guanaco Schwiger DO -Emergency Department Work Phone: Start: 10-06-2024 End: 10-06-2024 ambulatory VALDO RITCHIE Facility:[facility] Start: 10-06-2024 End: 10-06-2024 Patient encounter procedure Anitha Magana DIVER TENDER.TELEPHONE CLERK TELEGRAPH OFFICE Work Phone: [facility] Comment on above: Acute left eye pain (Primary Dx); Subconjunctival hemorrhage of left eye Procedures Date Procedure Procedure Detail Performing Clinician Start: 01-08-2025 Evaluation of diagnostic study results Dr. Guanaco Martinez DO Work Phone: Start: 01-06-2025 Dup-scan xtr veins unilateral/limited study Venkata Danielle MD Work Phone: Start: 01-06-2025 Radex ankle complete minimum 3 views Venkata Danielle MD Work Phone: Start: 12-20-[address] Guanaco harry DO Work Phone: Start: 12-11-[address] Guanaco Martinez DO Work Phone: Comment on above: The atypical pANCA pattern has been obse rved in asignificant percentage of patients with ulcerative colitis,primary sclerosing cholangitis and autoimmune hepatitis. Start: 12-11-2024 Antibody to centromere measurement Dr. Dane Martinez DO Work Phone: Comment on above: Previous reported result: TNP AIEdited b y: INFCE on 12/12/24:1308 AMENDED REPORT 12/12/24 1308 ANTI-CENT B previously reported as: Test not performed Start: 12-11-2024 Antibody to extractable nuclear antigen measurement Dr. Guanaco Martinez DO Work Phone: Comment on above: Previous reported result: TNP AIEdited b y: INFCE on 12/12/24:1308 AMENDED REPORT 12/12/24 1308 HARVEY Ab previously reported as: Test not performed Start: 12-11-2024 Antibody to SARA-[address] Guanaco puentes DO Work Phone: Comment on above: Previous reported result: TNP AIEdited b y: INFCE on 12/12/24:1308 AMENDED REPORT 12/12/24 1308 ANTI-SARA previously reported as: Test not performed Start: 12-11-2024 Antibody to lupus La protein measurement Dr. Guanaco Martinez DO Work Phone: Comment on above: Previous reported result: TNP AIEdited b y: INFCE on 12/12/24:1308 AMENDED REPORT 12/12/24 1308 Anti-SS-B previously reported as: Test not performed Start: 12-11-2024 Antibody to SS-A measurement Dr. Guanaco puentes DO Work Phone: Comment on above: Previous reported result: TNP AIEdited b y: INFCE on 12/12/24:1308 AMENDED REPORT 12/12/24 1308 Anti-SS-A previously reported as: Test not performed Start: 12-11-[address] Guanaco velázquez DO Work Phone: Comment on above: Previous reported result: TNP AIEdited b y: INFCE on 12/12/24:1308 AMENDED REPORT 12/12/24 1308 ANTICHROMATIN previously reported as: Test not performed Start: 12-11-[address] Guanaco cintron DO Work Phone: Start: 12-11-2024 Copper measurement, serum Dr. Guanaco cintron DO Work Phone: Comment on above: Detection Limit = 5Performed at: [address] [id number] Director: Chance Geronimo PhD, Phone: [phone] at: [facility] [id number] Director: Buddy Navarrete MD, Phone: [phone] Start: 12-11-2024 PACKER INSPECTOR antibody measurement Dr. Guanaco velázquez DO Work Phone: Comment on above: Previous reported result: TNP AIEdited b y: INFCE on 12/12/24:1308 AMENDED REPORT 12/12/24 1308 PACKER INSPECTOR Ab previously reported as: Test not performed Start: 12-06-[address] Guanaco Martinez DO Work Phone: Start: 12-05-[address] Guanaco harry DO Work Phone: Start: 12-05-2024 Serum inorganic phosphate measurement Dr. Guanaco Martinez DO Work Phone: Start: 12-04-2024 Measurement of occult blood in stool specimen using immunoassay Dr. Guanaco Martinez DO Work Phone: Start: 12-04-2024 Computed tomography of abdomen and pelvis with contrast Dr. Guanaco Martinez DO Work Phone: Start: 12-04-2024 Wegxe-0-Sqejojfjfbq measurement Dr. Guanaco Martinez DO Work Phone: Comment on above: [employer] Electrochemiluminescen ce Immunoassay(ECLIA)Values obtained with different assay methods or kits cannotbe used interchangeably. Results cannot be interpreted asabsolute evidence of the presence or absence of malignantdisease.This test is not interpretable in females.Performed at: [address] [id number] Director: Chance Geronimo PhD, Phone: [phone] Start: 10-06-2024 CT of head without contrast Dr. Guanaco guzmán DO Work Phone: Start: 07-16-2021 Lipid 1996 panel - Serum or Plasma Venktaa Danielle MD Work Phone: Plan of Treatment Date Care Activity Detail Author Start: 02-10-2031 RSV Vaccine (1 - 1-dose 75+ series) RSV Vaccine (1 - 1-dose 75+ series) [facility] Start: 08-23-2026 Diabetes Screening Diabetes Screening [facility] Start: 07-16-2026 Lipid panel Lipid Screening [facility] Start: 05-05-2025 Influenza vaccination INFLUENZA VACCINE (Season Ended) [facility] Start: 04-03-2025 Screening for malignant neoplasm of breast [facility] Start: 12-06-2024 Patient discharge [facility] Start: 12-05-2024 Esophagogastroduodenoscopy EGD (Not Applicable) [facility] Start: 12-05-2024 [facility] Start: 12-05-2024 Serum inorganic phosphate measurement [facility] Start: 12-04-2024 Continuous positive airway pressure ventilation treatment [facility] Start: 12-04-2024 Administration of blood product [facility] Start: 12-04-2024 Following clinical pathway protocol [facility] Start: 12-04-2024 Transfusion of blood product [facility] Start: 12-04-2024 Application of intermittent pneumatic compression device [facility] Start: 12-04-2024 Ambulation without limitation [facility] Start: 12-04-2024 Assessment of risk of venous thromboembolism [facility] Start: 12-04-2024 Insertion of catheter into peripheral vein [facility] Start: 12-04-2024 Measuring intake and output [facility] Start: 12-04-2024 Oxygen therapy [facility] Start: 12-04-2024 Providing care according to standard [facility] Start: 12-04-2024 Referral to gastroenterology service [facility] Start: 12-04-2024 End: 12-04-2024 [facility] Start: 12-04-2024 Administration of blood product [facility] Start: 12-04-2024 Verification routine [facility] Start: 12-04-2024 Admission procedure [facility] Start: 12-04-2024 Administration of blood product [facility] Start: 12-04-2024 Leukocyte reduced red blood cells [facility] Start: 12-04-2024 End: 12-04-2024 [facility] Start: 12-04-2024 Ngnwm-4-pdzltrkzbfz.tumor marker [Units/volume] in Serum or Plasma [facility] Start: 12-04-2024 Patient referral to dietitian [facility] Start: 10-06-2024 [facility] Start: 09-04-2024 Advance Directive Discussion Advance Directive Discussion [facility] Start: 05-05-2024 Covid-19 Vaccine ( season) Covid-19 Vaccine ( season) [facility] Start: 05-05-2024 Influenza vaccination Influenza Vaccine (#1) [facility] Start: 01-17-2023 Screening for osteoporosis DEXA SCAN DISCUSSION [facility] Start: 02-10-2021 Screening for osteoporosis Bone Density Screening [facility] Start: 02-10-2006 Pneumococcal vaccination PNEUMOCOCCAL VACCINE SERIES (1 of 1 - PCV) [facility] Start: 02-10-2006 Pneumococcal Vaccine: 50+ (1 of 1 - PCV) Pneumococcal Vaccine: 50+ (1 of 1 - PCV) [facility] Start: 02-10-2006 Shingrix Vaccine (1 of 2) Shingrix Vaccine (1 of 2) [facility] Start: 02-10-2006 Zoster vaccine hzv live for subcutaneous use ZOSTER (SHINGLES) VACCINE (1 of 2) [facility] Start: 02-10-2001 Diabetes Screening Diabetes Screening [facility] Start: 02-10-2001 Lipid panel Lipid Screening [facility] Start: 02-10-2001 Screening for malignant neoplasm of colon [facility] Start: 1996 Lipid panel LIPID SCREENING [facility] Start: 1996 Screening for malignant neoplasm of breast Mammogram Screening [facility] Start: 02-10-1977 Screening for malignant neoplasm of cervix CERVICAL CANCER SCREENING DISCUSSION [facility] Start: 02-10-1975 Third diphtheria, tetanus and acellular pertussis (DTaP) vaccination TDAP (ADULT) [facility] Start: 02-10-1975 Urine microalbumin profile DTaP,Tdap,Td Vaccine (1 - Tdap) [facility] Start: 02-10-1974 Anxiety Screening Anxiety Screening [facility] Start: 02-10-1974 Depression Screening Depression Screening [facility] Start: 02-10-1974 Hepatitis C screening Hepatitis C Screening [facility] Start: 1956 Hepatitis C screening HEPATITIS C VIRUS SCREENING [facility] Start: 1956 Tetanus vaccination TETANUS [facility] Anion gap in Serum or Plasma [facility] Anion gap in Serum or Plasma [facility] Anion gap in Serum or Plasma [facility] BUN/Creatinine ratio [facility] BUN/Creatinine ratio [facility] BUN/Creatinine ratio [facility] Calcium [Mass/volume ] in Serum or Plasma [facility] Calcium [Mass/volume ] in Serum or Plasma [facility] Calcium [Mass/volume ] in Serum or Plasma [facility] Carbon dioxide, tota l [Moles/volume] in Central venous blood [facility] Carbon dioxide, tota l [Moles/volume] in Central venous blood [facility] Carbon dioxide, tota l [Moles/volume] in Central venous blood [facility] Creatinine [Mass/vol ume] in Serum or Plasma [facility] Creatinine [Mass/vol ume] in Serum or Plasma [facility] Creatinine [Mass/vol ume] in Serum or Plasma [facility] Erythrocyte mean cor puscular volume determination [facility] Erythrocyte mean cor puscular volume determination [facility] Erythrocyte mean cor puscular volume determination [facility] Glucose [Mass/volume ] in Serum or Plasma [facility] Glucose [Mass/volume ] in Serum or Plasma [facility] Glucose [Mass/volume ] in Serum or Plasma [facility] Hematocrit [Volume F raction] of Blood [facility] Hematocrit [Volume F raction] of Blood [facility] Hematocrit [Volume F raction] of Blood [facility] Hemoglobin [Mass/volume] in Blood [facility] Hemoglobin [Mass/volume] in Blood [facility] Hemoglobin [Mass/volume] in Blood [facility] Leukocytes [#/volume] in Blood [facility] Leukocytes [#/volume] in Blood [facility] Leukocytes [#/volume] in Blood [facility] Magnesium measurement [facility] Mean corpuscular hem oglobin concentration determination [facility] Mean corpuscular hem oglobin concentration determination [facility] Mean corpuscular hem oglobin concentration determination [facility] Mean corpuscular hem oglobin determination [facility] Mean corpuscular hem oglobin determination [facility] Mean corpuscular hem oglobin determination [facility] Measurement of renal function [facility] Measurement of renal function [facility] Measurement of renal function [facility] Neutrophil count [facility] Neutrophil count [facility] Neutrophil count [facility] Neutrophil percent d ifferential count [facility] Neutrophil percent d ifferential count [facility] Neutrophil percent d ifferential count [facility] Patient Education ED Subconjunct ival Hemorrhage [facility] Work Phone: Patient referral [facility] Work Phone: Platelets [#/volume] in Blood [facility] Platelets [#/volume] in Blood [facility] Platelets [#/volume] in Blood [facility] Potassium measurement [facility] Potassium measurement [facility] Potassium measurement [facility] Red blood cell count [facility] Red blood cell count [facility] Red blood cell count [facility] Red cell distributio n width determination [facility] Red cell distributio n width determination [facility] Red cell distributio n width determination [facility] Serum chloride measurement [facility] Serum chloride measurement [facility] Serum chloride measurement [facility] Sodium measurement [facility] Sodium measurement [facility] Sodium measurement [facility] Troponin T.cardiac [ Mass/volume] in Serum or Plasma by High sensitivity method [facility] Troponin T.cardiac [ Mass/volume] in Serum or Plasma by High sensitivity method [facility] Troponin T.cardiac [ Mass/volume] in Serum or Plasma by High sensitivity method [facility] Urea nitrogen [Mass/ volume] in Serum or Plasma [facility] Urea nitrogen [Mass/ volume] in Serum or Plasma [facility] Urea nitrogen [Mass/ volume] in Serum or Plasma [facility] US Abdomen limited [facility] Payers Date Payer Category Payer Self-pay 2024 Medicare [employer] MEDICARE [employer] MEDICARE PPO [id number] 2024-Present [phone] [address] [address] [place] [address] PPO [id number] 2024 Medicare (Managed Care) [id number]. [id number] 2024 Medicare [id number] 1955 Unknown [id number] .594 Unknown [id number] 2.16.840.1.819692.3.579.2 .462 Unknown [id number] 2.16.840.1.983963.3.579.2 .462 Unknown [id number] 2.16.840.1.133233.3.579.2 .462 Unknown [id number] 2.16.840.1.654143.3.579.2 .462 Unknown [id number] 2.16.840.1.247179.3.579.2 .462 Unknown [id number] 2.16.840.1.138613.3.579.2 .462 Unknown [id number] 2.16.840.1.339131.3.579.2 .462 Unknown [id number] 2.16.840.1.637785.3.579.2 .462 Unknown [id number] 2.16.840.1.701151.3.579.2 .462 Unknown [id number] 2.16.840.1.266217.3.579.2 .462 Unknown [id number] 2.16.840.1.131315.3.579.2 .462 Unknown [id number] 2.16.840.1.599945.3.579.2 .462 Unknown [id number] 2.16.840.1.741902.3.579.2 .462 Unknown [id number] 2.16.840.1.545165.3.579.2 .462 Unknown [id number] 2.16.840.1.460768.3.579.2 .462 Unknown [id number] 2.16.840.1.870730.3.579.2 .462 Unknown [id number] 2.16.840.1.828274.3.579.2 .462 Unknown [id number] 2.16.840.1.980792.3.579.2 .462 Unknown [id number] 2.16.840.1.811626.3.579.2 .462 Social History Date Type Detail Facility Start: 10-06-2024 End: 01-08-2025 Tobacco smoking status NHIS Never smoked tobacco [facility] Start: 10-06-2024 End: 12-19-2024 Tobacco use and exposure Smokeless tobacco non-user [facility] Start: 10-06-2024 End: 12-19-2024 History of Social function [facility] Start: 10-06-2024 End: 12-19-2024 Tobacco use panel [facility] Start: 1955 Sex assigned at Not on file [facility] Start: 11-20-2024 End: 12-04-2024 Sex Female (finding) [facility] Start: 1955 Sex Assigned At Female [facility] NEGATED: Highlighted rowStart: NINF History of tobacco use Passive smoker [facility] Goals Date Patient Goal Desired Activity /State Functional Status Date Assessment Result Facility 12-06-2024 Functional status Ambulates [facility] Work Phone: 12-05-2024 Functional status Ambulates [facility] Work Phone: Mental Status Date Assessment Result Facility 12-06-2024 Cognitive function Voice/Name [facility] Work Phone: 12-05-2024 Cognitive function Voice/Name [facility] Work Phone: 12-04-2024 Cognitive function Voice/Name [facility] Work Phone: Clinical Notes 10-06-2024 to 01-06-2025 Telephone Encounter - Venkata Danielle MD - 01/06/2025 2:21 PM EDTTelephone Encounter - Venkata Danielle MD - 01/06/2025 2:21 PM Anitha Parker RDOR - 01/06/2025 1:45 PM EDT Note Date & Type Note Facility 01-06-2025 Telephone encount er Note Patient notified of negative ultrasound. [facility] Work Phone: 01-06-2025 Miscellaneous Notes Formattin g of this note might be different from the original. Patient notified of negative ultrasound. documented in this encounter [facility] 01-06-2025 History of Presen t illness Narrative Radiology Service Progress Note PATIENT NAME: Dian Jane DATE OF SERVICE: January 06, 2025 TIME: 2:22 PM PATIENT IDENTITY VERIFICATION COMPLETED USING TWO (2) IDENTIFIERS: Name and Date of confirmed by patient verbally. FALL SCREENING: Has the patient had 2 falls in the last year or 1 fall with injury or currently using an Ambulatory Assistive Device (Walker, Cane, Wheelchair, Crutches, etc.)? Yes, Patient High Risk for Falls What interventions were put in place to prevent falls during this visit? Instructed Patient to Call for Help if Needed, Offered Assistance with Transfers/Clothing, Instructed Patient to Remain Seated (Not on Exam Table) Until Exam, and Increased Observations by Caregivers PATIENT GENDER DATA: Assigned female at . status: : No status: NO. PATIENT RELEVANT IMPLANT DATA REVIEWED: Not Applicable PATIENT PRESENTS WITH AN IMPLANTABLE OR ATTACHED DAY CARE CENTER DIRECTOR: No RADIOLOGY DEPARTMENT: Ultrasound PERIPHERAL IV DATA: Not applicable SIGNED BY: Anitha Nicole RDMS RVT January 06, 2025 2:22 PM documented in this encounter [facility] 01-06-2025 Note HNO ID: [id number] Author: ANITHA NICOLE RDMS Service: ? Author Type: Staff Rn Type: Progress Notes Filed: 01/06/2025 14:23 Note Text: Radiology Service Progress Note PATIENT NAME: Dian Jane DATE OF SERVICE: January 06, 2025 TIME: 2:22 PM PATIENT IDENTITY VERIFICATION COMPLETED USING TWO (2) IDENTIFIERS: Name and Date of confirmed by patient verbally. FALL SCREENING: Has the patient had 2 falls in the last year or 1 fall with injury or currently using an Ambulatory Assistive Device (Walker, Cane, Wheelchair, Crutches, etc.)? Yes, Patient High Risk for Falls What interventions were put in place to prevent falls during this visit? Instructed Patient to Call for Help if Needed, Offered Assistance with Transfers/Clothing, Instructed Patient to Remain Seated (Not on Exam Table) Until Exam, and Increased Observations by Caregivers PATIENT GENDER DATA: Assigned female at . status: : No status: NO. PATIENT RELEVANT IMPLANT DATA REVIEWED: Not Applicable PATIENT PRESENTS WITH AN IMPLANTABLE OR ATTACHED DAY CARE CENTER DIRECTOR: No RADIOLOGY DEPARTMENT: Ultrasound PERIPHERAL IV DATA: Not applicable SIGNED BY: Anitha Nicole RDMS RVT January 06, 2025 2:22 PM [facility] 01-06-2025 History of Presen t illness Narrative Radiology Service Progress Note PATIENT NAME: Dian Jane DATE OF SERVICE: January 06, 2025 TIME: 10:59 AM PATIENT IDENTITY VERIFICATION COMPLETED USING TWO (2) IDENTIFIERS: Name and Date of confirmed by patient verbally. FALL SCREENING: Has the patient had 2 falls in the last year or 1 fall with injury or currently using an Ambulatory Assistive Device (Walker, Cane, Wheelchair, Crutches, etc.)? No PATIENT GENDER DATA: Assigned female at . status: : No status: NO. PATIENT RELEVANT IMPLANT DATA REVIEWED: Not Applicable PATIENT PRESENTS WITH AN IMPLANTABLE OR ATTACHED DAY CARE CENTER DIRECTOR: No RADIOLOGY DEPARTMENT: General X-ray: Exam(s) Completed: Lower Extremity X-Ray(s): Ankle, Left and Heel, Left PERIPHERAL IV DATA: Not applicable SIGNED BY: Arlene Prather January 06, 2025 10:59 AM documented in this encounter [facility] 01-06-2025 Note HNO ID: [id number] Author: BRENDA VIVAS Tech Service: ? Author Type: Technologist Type: Progress Notes Filed: 01/06/2025 11:14 Note Text: Radiology Service Progress Note PATIENT NAME: Dian Jane DATE OF SERVICE: January 06, 2025 TIME: 10:59 AM PATIENT IDENTITY VERIFICATION COMPLETED USING TWO (2) IDENTIFIERS: Name and Date of confirmed by patient verbally. FALL SCREENING: Has the patient had 2 falls in the last year or 1 fall with injury or currently using an Ambulatory Assistive Device (Walker, Cane, Wheelchair, Crutches, etc.)? No PATIENT GENDER DATA: Assigned female at . status: : No status: NO. PATIENT RELEVANT IMPLANT DATA REVIEWED: Not Applicable PATIENT PRESENTS WITH AN IMPLANTABLE OR ATTACHED DAY CARE CENTER DIRECTOR: No RADIOLOGY DEPARTMENT: General X-ray: Exam(s) Completed: Lower Extremity X-Ray(s): Ankle, Left and Heel, Left PERIPHERAL IV DATA: Not applicable SIGNED BY: Arlene Prather January 06, 2025 10:59 AM [facility] 01-06-2025 Note HNO ID: [id number] Author: VENKATA DANIELLE MD Service: ? Author Type: Physician Type: Progress Notes Filed: 01/06/2025 14:22 Note Text: [facility] Subjective Dian Jane is a 69 year old female. Patient presents with: left foot pain: X 1 day-cannot recall an injury Left heel pain: Duration: Woke with pain in the heel yesterday morning, no known injury Location: left heel and arch Character: sharp 5/10 at rest, feels like a numb bubble under her heel sometimes. Radiation: some up the calf Aggravating: standing and walking Relieving: Pain relievers: aspercreme Associated: swelling (unchanged), shortness of breath (unchanged), returned from visit to [place] 2 days ago, has been in PT 6 weeks for injuring right knee replacement, had blood transfusion and EGD for bleeding varices last month Pertinent negatives: Denies fever, chills, palpitations, chest pain, back pain, radicular leg pain, cyanosis. 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 Comments: Ambulates with a cane HENT: Mouth/Throat: Mouth: Mucous membranes are moist. Eyes: Extraocular Movements: Extraocular movements intact. Conjunctiva/sclera: Conjunctivae normal. Pupils: Pupils are equal, round, and reactive to light. Cardiovascular: Rate and Rhythm: Normal rate and regular rhythm. Pulses: Dorsalis pedis pulses are 1+ on the right side. Pulmonary: Breath sounds: No wheezing, rhonchi or rales. Comments: Mild conversational dyspnea Musculoskeletal: Cervical back: Neck supple. Left ankle: Swelling (2+ pitting edema left lateral malleolus) present. No deformity, ecchymosis or lacerations. Tenderness present. No lateral malleolus, medial malleolus, base of 5th metatarsal or proximal fibula tenderness. Comments: Mild discomfort with palpation of the calf and achilles. Sharp pain with palpation of the calcaneus medially and inferior aspects. Neurological: Mental Status: She is alert. {ASSESSMENT/PLAN: 1. Pain of left heel - ICD9: 729.5, ICD10: M79.672 (primary diagnosis) 2. Heel spur, left - ICD9: 726.73, ICD10: M77.32 - XR CALCANEUS 2V AXIAL/LAT LEFT - XR ANKLE GENERAL 3V AP/LAT/OBL LEFT FINDINGS: 3 views of the left ankle and 2 views of the left calcaneus have been obtained. There is no acute fracture or dislocation. There is plantar calcaneal spur and slight plantar fascial calcification. There is calcification of the distal Achilles tendon and at the site of its insertion into the posterior Achilles. Osseous structures are intact. Joint spaces are maintained. There is no joint effusion. There is soft tissue swelling about the ankle. Her pain is in the location of heel spurs. Treatment options are limited by liver cirrhosis and diabetes. She is unable to take regular ibuprofen or acetaminophen. She reports she is also unable to get cortisone injections since she had severe hyperglycemia for weeks after getting one. Treat with rest, ice, and elevation.Schedule follow-up with podiatry. Follow up with PCP in the interim. 3. Pain of left calf - ICD9: 729.5, ICD10: M79.662 Primary location of pain is in the calcaneus however she has edema, calf pain, and recent 6-hour drive. - US DVT LOWER LEFT to rule out DVT. Proceed to the ED of pain out of proportion to exam worsens. Venkata Danielle MD Differential Diagnoses - plantar fasciitis is more likely for the following reason(s): point tenderness and spurs on xray - right lower leg DVT is less likely for the following reason(s): primary tenderness is in the calcaneus Procedures [facility] 01-06-2025 History of Presen t illness Narrative [facility] Subjective Dian Jane is a 69 year old female. Patient presents with: left foot pain: X 1 day-cannot recall an injury Left heel pain: Duration: Woke with pain in the heel yesterday morning, no known injury Location: left heel and arch Character: sharp 5/10 at rest, feels like a numb bubble under her heel sometimes. Radiation: some up the calf Aggravating: standing and walking Relieving: Pain relievers: aspercreme Associated: swelling (unchanged), shortness of breath (unchanged), returned from visit to [place] 2 days ago, has been in PT 6 weeks for injuring right knee replacement, had blood transfusion and EGD for bleeding varices last month Pertinent negatives: Denies fever, chills, palpitations, chest pain, back pain, radicular leg pain, cyanosis. 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 Comments: Ambulates with a cane HENT: Mouth/Throat: Mouth: Mucous membranes are moist. Eyes: Extraocular Movements: Extraocular movements intact. Conjunctiva/sclera: Conjunctivae normal. Pupils: Pupils are equal, round, and reactive to light. Cardiovascular: Rate and Rhythm: Normal rate and regular rhythm. Pulses: Dorsalis pedis pulses are 1+ on the right side. Pulmonary: Breath sounds: No wheezing, rhonchi or rales. Comments: Mild conversational dyspnea Musculoskeletal: Cervical back: Neck supple. Left ankle: Swelling (2+ pitting edema left lateral malleolus) present. No deformity, ecchymosis or lacerations. Tenderness present. No lateral malleolus, medial malleolus, base of 5th metatarsal or proximal fibula tenderness. Comments: Mild discomfort with palpation of the calf and achilles. Sharp pain with palpation of the calcaneus medially and inferior aspects. Neurological: Mental Status: She is alert. {ASSESSMENT/PLAN: 1. Pain of left heel - ICD9: 729.5, ICD10: M79.672 (primary diagnosis) 2. Heel spur, left - ICD9: 726.73, ICD10: M77.32 - XR CALCANEUS 2V AXIAL/LAT LEFT - XR ANKLE GENERAL 3V AP/LAT/OBL LEFT FINDINGS: 3 views of the left ankle and 2 views of the left calcaneus have been obtained. There is no acute fracture or dislocation. There is plantar calcaneal spur and slight plantar fascial calcification. There is calcification of the distal Achilles tendon and at the site of its insertion into the posterior Achilles. Osseous structures are intact. Joint spaces are maintained. There is no joint effusion. There is soft tissue swelling about the ankle. Her pain is in the location of heel spurs. Treatment options are limited by liver cirrhosis and diabetes. She is unable to take regular ibuprofen or acetaminophen. She reports she is also unable to get cortisone injections since she had severe hyperglycemia for weeks after getting one. Treat with rest, ice, and elevation.Schedule follow-up with podiatry. Follow up with PCP in the interim. 3. Pain of left calf - ICD9: 729.5, ICD10: M79.662 Primary location of pain is in the calcaneus however she has edema, calf pain, and recent 6-hour drive. - US DVT LOWER LEFT to rule out DVT. Proceed to the ED of pain out of proportion to exam worsens. Venkata Danielle MD Differential Diagnoses - plantar fasciitis is more likely for the following reason(s): point tenderness and spurs on xray - right lower leg DVT is less likely for the following reason(s): primary tenderness is in the calcaneus Procedures documented in this encounter [facility] 12-19-2024 History of Presen t illness Narrative Patient verified full name and This telehealth visit is a real time video visit communication. During the scheduling process, this patient has verbally consented to the submission of Telehealth visits and the patient is aware of the risks, benefits, and possible coinsurance/copay costs. Patient Location: Home She presents for evaluation of SEVERINO . Onset of symptoms was many years ago. She goes to sleep at 9 pm on weekdays and on weekends. She awakens 8 am on weekdays and on weekends. She falls asleep in variable minutes. She does not use medication for sleep. She describes the symptoms of difficulty falling asleep, non-restful sleep, and excessive daytime sleepiness. Associated symptoms include: fatigue and unusual behavior during sleep. She denies unusual behavior during sleep. Previous sleep study: Yes done 20 years ago CPAP machine not working properly now. Report available: No 12/19/2024 9:00 AM Pulmonary Dept Documentation [place] Sleepiness Scale 3 FOSQ Score 16.5 My interpretation: does not have EDS Smoking: never Past Medical History: T2DM, liver cirrhosis, CAD Past Surgical History: has no past surgical history on file. Allergies: She has no allergies on file. Medications: Plavix. Simvastatin Family History: + SEVERINO in son Past Social History:She reports that she has never smoked. She has never used smokeless tobacco. No history on file for alcohol use and drug use. Review of Systems:Review of Systems: All other systems reviewed. No fever or chills. All else is negative aside from those mentioned above. Ht 1.575 m (5' 2) Wt 111.6 kg (246 lb) BMI 44.99 kg/m Smoking Status Never Body mass index is 44.99 kg/m . Neck Collar size: 16 inches Laboratory and others: Previous medical records from [facility] were reviewed. Serum Chemistry:No results found for: SODIUM, POTASSIUM, CHLORIDE, CO2, BUN, CREATSERUM, GLUCOSE HBA1c: No results found for: HGBA1C Thyroid function tests:No results found for: TSH, [id number], GDO25AXM, TSHBASELINE, TSHULTRASEN, TSHRFT4 Lipid profile: No results found for: CHOLESTEROL, TRIG, HDL, LDLCALC No results found for: FERRITIN ECHO: No results found for this or any previous visit. Diagnostic Review: 12/19/2024 9:00 AM Pulmonary Dept Documentation [place] Sleepiness Scale 3 FOSQ Score 16.5 [place] Sleepiness Score (ESS) > 10 indicates daytime sleepiness but should not be the sole criteria for sleepiness. FOSQ-10 < 17.9 indicates decreased of quality of life due to impact sleepiness. Impression: Obstructive sleep apnea. The patient is adherent to therapy and benefiting from PAP therapy. Needs a sleep study to obtain a new CPAP machine. Current CPAP set at 11 cm water. Obesity No evidence of parasomnia: the sleep history was thoroughly reviewed. No indication of any unusual behavior during sleep that requires intervention. Driving Issues: denies Plan: Portable in-home sleep study. If HSAT negative- would need to consider an in-lab PSG since we have a high suspicion for SEVERINO. Will obtain a new CPAP machine once sleep study is done. 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 A handout on drowsy driving tips was given to the patient. Discussed importance of weight loss to sleep apnea treatment.Discussed plan for lifestyle behavioral changes (diet and exercise). Follow up in clinic after the sleep studies. At that time we will discuss her study results and tolerance of therapy if indicated. RTC 3 months Provider location: Opal Barrera M.D. Professor of Internal Medicine and Neuroscience Division of Pulmonary, Allergy, Critical Care, and Sleep Medicine [facility] FAX: [phone] Email: [email or web address] in this encounter [facility] 12-06-2024 Discharge summary [facility] 12-06-2024 Note [facility] Medical Records Department [address] [place] [address] Discharge Summary 12/06/24 0929 MR#: [id number] Acct: [id number] Name: DIAN JANE Rep #: [id number] : 1955 69 From: Hamzah Aguirre MD PCP: JU Mishra Status:ADM IN Location: [place] [id number] Providers Date of Admission: 12/04/24 Date of Discharge: 12/06/24 Primary Care Physician: JU Mishra Consultations 12/04/24 17:06 Consult: Gastroenterology Routine Consulting Provider: [facility] Reason for Consult: GI bleed EMERGENT Consult: No MD Notified: Yes Date Notified: 12/04/24 Time Notified: 13:11 Method of Notification: ED Physician Initiated Reason For Visit: ANEMIA Diagnosis Discharge Diagnosis (1) Microcytic anemia: Status: Acute Code(s): D50.9 - Iron deficiency anemia, unspecified Plan Patient is a 69-year-old female presenting with severe anemia. Patient was also found to have marked microcytosis with hemoglobin 5.7 and MCV of 68. Stool guaiac came back positive admitted to monitored bed for subsequent management 1. Severe anemia ??? Secondary to suspected chronic blood loss anemia per patient she has had extensive workup at this [facility] in [place]. Requested for old records. Patient stool guaiac came back positive subsequently started on Protonix. Patient is on clopidogrel for CAD with previous PCI held. An order was given for patient to be transfused with 2 unit PRBC subsequent monitoring with serial H H ordered ??? 12/05/2024; patient was transfused with 2 unit PRBC hemoglobin up to 8.0 patient scheduled to undergo endoscopic evaluation by GI. Patient underwent EGD on 12/05/[address] Arnett findings and recommendations as below Impressions : - Grade II esophageal varices. - Portal hypertensive gastropathy. - Four bleeding angiodysplastic lesions in the duodenum. Treated with a heater probe. - Two angiodysplastic lesions in the jejunum. Treated with a heater probe. - No specimens collected. Recommendations : - [facility]. - Full liquid diet today. - Continue present medications. - Nadolol 10 mg twice daily for variceal prophylaxis - Capsule endoscopy 2. Coronary artery disease ??? With previous PCI ; Patient is on clopidogrel as well as simvastatin. Clopidogrel held given patient anemia 3. GERD ??? Patient is on PPI 4. Diabetes mellitus type II -patient's oral hypoglycemics held. Placed on long acting insulin, Accu-Cheks a.c. and at bedtime and covered with sliding scale insulin 5. Nonalcoholic fatty liver disease ??? Patient currently being followed by Dr. Zaman with GI as outpatient 6. Class III obesity with BMI of 46.8 ??? Complicating care weight loss advised 7. Dyslipidemia ???Patient is on statin therapy, continued at home dose 8. DVT prophylaxis ??? Chemoprophylaxis contraindicated given patient severe anemia Time spent in the patient's overall evaluation,decision-making process, review of diagnostic data, adjustment of management, discussion with other providers, nursing nursing and ancillary staff involved in patient's care documentation, 50-minute Medications at Discharge Home Medications cholecalciferol (vitamin D3) 325 mcg (13,000 unit) capsule 50,000 unit PO QODAY 12/04/24 clopidogrel 75 mg tablet (Plavix) 75 mg PO DAILY 12/04/24 methocarbamol 750 mg tablet 1,500 mg PO QHS 12/04/24 nitroglycerin 0.4 mg sublingual tablet 0.4 mg sublingual Q5-15M PRN chest pain 12/04/24 pantoprazole 20 mg tablet,delayed release 20 mg PO QHS 12/04/24 simvastatin 10 mg tablet 10 mg PO QHS 12/04/24 nadolol 20 mg tablet 10 mg (1/2 x 20 mg) PO BID 90 days #90 tabs 12/06/24 Physical Exam Narrative GENERAL: cooperative HEENT: Atraumatic; normocephalic EYES; Anicteric, Normal Conjunctiva NECK; supple, normal thyroid, RESPIRATORY: Diminished to auscultation CARDIOVASCULAR: Regular S1 S2, GI: soft, normoactive bowel sounds, : No Renal angle tenderness; EXTREMITIES: No edema, no clubbing, MUSCULOSKELETAL: no muscle wasting NEURO: Awake; no lateralizing signs. SKIN: No Rash PSYCH; Flat affect Weight / BMI Weight Weight: 115.9 kg Body Mass Index (BMI) 46.7 ABG / Lab / Microbiology Data 12/06/24 05:36 12/06/24 05:36 Laboratory: Laboratory Results - last 24 hr 12/05/24 13:52: Troponin T High Sens 8 12/05/24 15:38: Troponin T Hi Sens 2 Hr 9 12/06/24 05:36: WBC 3.9 L, RBC 3.80 L, Hgb 8.3 L, Hct 28.0 L, MCV 73.7 L, MCH 21.8 L, MCHC 29.6 L, R DW Std Deviation 56.1 H, RDW Coeff of Rafa 21.5 H, Plt Count 115 L, MPV 10.7, Immature Gran % (Auto) 0.300, Neut % (Auto) 50.1, Lymph % (Auto) 30.3, [place] % (Auto) 14.0 H, Eos % (Auto) 4.3, Baso % (Auto) 1.0, Absolute Neuts (auto) 2.0, Absolute Lymphs (auto) 1.19, Nucleated RBC % 0, Plate (more content not included)... [facility] 12-05-2024 Consult note Note Date/Time December 05, 2024 8:15 pm [facility] Medical Records Department [address] [place] [address] Anesthesia Postop Eval II 12/05/242013 MR#: [id number] Acct: [id number] Name: DIAN JANE Rep #:[id number] : 1955 69 From: Simba Her MD PCP: JU Mishra Status:ADM IN Y Race: C Location: [place] [address] 8-1 Anesthesia Postop Eval I Sum Postop Eval Completion status Anesthesia document: Postop Eval 1 completed: Yes Anesthesia Postop Eval I Summary Anesthesia Postop Eval I Summary: Anesthesia Postop Eval I: Assessment Summary Airway patent Yes 12/05/24 18:59 Spontaneous unlabored Yes 12/05/24 18:59 respirations Mental status Awake,Calm 12/05/24 18:59 nausea Yes 12/05/24 18:59 Vomiting No 12/05/24 18:59 Anesthesia Postop Eval I: Fluid Summary Crystalloid volume administer 10 12/05/24 18:59 (ml) Colloids volume administered ( ml) Blood Product volume administered (ml) Total IV fluid infused 10 12/05/24 18:59 Anesthesia Postop Eval I: Summary Notes Anesthesia Complication No 12/05/24 18:59 Anesthesia Complication Comment: Post-operative progress note Anesthesia: Postop Eval II Evaluation Mental status: Awake and Calm Pain Level: 0 nausea: No Vomiting: No Progress Note Post-operative progress note: Nausea improved with breathing from a [place]. Complications Anesthesia Complication: No 12/05/242014 <Electronically signed by Simba peraza MD> Date _ Simba Her MD Cosigner Signature: Date CC: ~ Signed [facility] Work Phone: 1(889) 527-663504-03-2025 Consult note Author Simba [facility] Note Date/Time December 05, 2024 6:59 pm [facility] Medical Records Department [address] [place] [address] Anesthesia Postop Eval I 12/05/24 1856 MR#: [id number] Acct: [id number] Name: DIAN JANE Rep #:[id number] : 1955 69 From: Simba Her MD PCP: JU Mishra Status:ADM IN Y Race: C Location: [place] [address] Anesthesia: Postop Eval I Current Vital Signs Temperature: 98.5 F Pulse Rate: 89 Blood Pressure: 122/63 Respiratory Rate: 16 Pulse Ox: 94 Oxygen Delivery Method: Room Air Assessment Airway patent: Yes Spontaneous unlabored respirations: Yes Mental status: Awake and Calm nausea: Yes Vomiting: No Anesthesia Complication: No Fluid Hydration Crystalloid volume administer (ml): 10 Total IV fluid infused: 10 Progress Note Anesthesia document: Postop Eval 1 completed: Yes 12/05/241858 <Electronically signed by Simba peraza MD> Date _ Simba Her MD Cosigner Signature: Date CC: ~ Signed [facility] Work Phone: [phone]) 696-756304-03-2025 Consult note Author Francisco Zaman [facility] Note Date/Time December 05, 2024 6:29 pm [facility] Medical Records Department [address] [place] [address] Consultation - GI 12/05/24 1825 MR#: [id number] Acct: [id number] Name: DIAN JANE Rep #:[id number] : 1955 69 From: Francisco Zaman DO PCP: JU Mishra Status:ADM IN Location: [place] [address] HPI Consult Data Date of Consult: 12/05/24 HPI Narrative Reason for Consultation: Anemia HPI Narrative: DIAN JANE, is a 69-year-old female with a past medical history of CAD status post 2 stents on Plavix, type 2 diabetes, PARRY with cirrhosis, hypertension, SEVERINO, GERD who presented to the emergency department with a chief complaint of low hemoglobin. Patient states that from May [place] down[place] where she was originally from she had multiple scopes done as well as a pill swallow study and they discovered that she had some areas of bleeding in her lower intestines she states that she cannot exactly remember thename of this however she states that she has never had to have blood transfusions in the past. They state that they placed her on iron supplementation and her blood count started to improve with this. Patient states that she has been having some chest tightness and shortness of breath recently as well. Patient states that when she was walking here into the emergency department she felt like her symptoms were worsening. Pt diagnosed with cirrhosis about one year in [place]. She has not had consistent f/uwith GI in the past. Her last EGD was in 2023 showing gastric varices. On aroutine follow-up patient was found to have hemoglobin of 5.6 was sent to the ED. Patient did complain of progressive shortness of breath with activity as well as chest tightness. Stool guaiac obtained in the emergency department cameback positive. An order was given for patient to be transfused with 2 unit PRBCfrom the emergency department [facility] Medical History Bilateral carotid artery disease SEVERINO (obstructive sleep apnea) GERD (gastroesophageal reflux disease) Essential (primary) hypertension Edema Cirrhosis Diabetes type 2 Coronary artery disease Home Medications ?Medication ?Instructions ?Recorded ?Last Taken ?Type cholecalciferol (vitamin D3) 325 50,000 unit PO QODAY 12/04/24 12/03/24 History mcg (13,000 unit) capsule clopidogrel 75 mg tablet (Plavix) 75 mg PO DAILY 12/0412/04/24 History methocarbamol 750 mg tablet 1,500 mg PO QHS 12/04/24 0 12/03/24 History nitroglycerin 0.4 mg sublingual 0.4 mg sublingual Q5-1 5M PRN chest 12/04/24 Unknown History tablet pain pantoprazole 20 mg tablet,delayed 20 mg PO QHS 5 12/03/24 History release simvastatin 10 mg tablet 10 mg PO QHS 12/04/24 History Allergy/AdvReac Type Severity Reaction Status Date / Time Influenza Virus Vaccines Allergy Severe Anaphylaxis Verified 10/06/24 12:03 (flu vaccine) hydrocodone Allergy Angioedema Verified 12/04/24 09:43 Corticosteroids AdvReac Intermediate Other Verified 10/06/24 12:03 (Glucocorticoids) Surgical History History of percutaneous angioplasty (~10/2014) Hx of section Hx of total knee replacement History of total hysterectomy with bilateral salpingo-oophorectomy (BSO) Hx of appendectomy Social History Smoking Status: Never smoker ROS Constitutional Constitutional: Denies fatigue, fever(s), poor appetite, weight gain or weight loss Gastrointestinal Gastrointestinal: Denies belching, bloating, change in bowel habits, change in stool character, chewing difficulty, coffee ground emesis, constipation, cramping, diarrhea, dyspepsia, dysphagia, early satiety, excessive flatus, fecalincontinence, heartburn, hematemesis, hematochezia, hemorrhoids, loose stools, melena, nausea, odynophagia, rectal bleeding, tenesmus, vomiting or weight changes Physical Exam Narrative GENERAL: cooperative HEENT: Atraumatic; normocephalic EYES; Anicteric, Normal Conjunctiva NECK; supple, normal thyroid, RESPIRATORY: Diminished to auscultation CARDIOVASCULAR: Regular S1 S2, GI: soft, normoactive bowel sounds, : No Renal angle tenderness; EXTREMITIES: No edema, no clubbing, MUSCULOSKELETAL: no muscle wasting NEURO: Awake; no lateralizing signs. SKIN: No Rash PSYCH; Flat affect Lab / Micro Data 12/05/24 05:27 12/05/24 05:27 Labs: Laboratory Results - last 24 hr 12/04/24 10:19: Crossmatch See Detail 12/04/24 22:58: Troponin T Hi Sens 4Hr 12 12/05/24 05:27: WBC 2.8 L, RBC 3.63 L, Hgb 8.0 L, Hct 26.2 L, MCV 72.2 L D, MCH 22.0 L, MCHC 30.5 L D, RDW Std Deviation 54.6 H, RDW Coeff of Rafa 21.0 H, Plt Count 105 L, MPV 10.1, Immature Gran % (Auto) 0.000, Neut % (Auto) 45.7 L, Lymph% (Auto) 36.3, [place] % (Auto) 11.5 H, Eos % (Auto) 5.4 H, Baso % (Auto) 1.1 H, Absolute Neuts (auto) 1.3 L, Absolute Lymphs (auto) 1.01, Nucleated RBC % 0, Anisocytosis 1+, PT 19.1 H, INR 1.6, APTT 33.1, Sodium 139, Potassium 3.7, Chloride 111 H, Carbon Dioxide 19.6 L, Anion Gap 9, BUN 6, Creatinine 0.55 L, Estim Creat Clear Calc 81.20, Est GFR (MDRD) Non-Af 100, BUN/Creatinine Ratio 10.8, Glucose 90, Calcium 8.4, Phosphorus 3.0, Magnesium 1.8 12/05/24 13:52: Troponin T High Sens 8 12/05/24 15:38: Troponin T Hi Sens 2 Hr 9 Assessment & Plan Assessment/Plan (1) Microcytic anemia: PLAN: Plan Patient is a 69-year-old female presenting with severe microcytic anemia. Hemoglobin 5.7 and MCV of 68. Stool guaiac came back positive. Severe microcyctic anemia ? Secondary to suspected chronic blood loss anemia. Patient stool guaiac came back positive subsequently started on Protonix. Patient is on clopidogrel for CAD with previous PCI held. An order was given for patient to be transfused with 2 unit PRBC subsequent monitoring with serial H&H ordered ? 12/05/2024; patient was transfused with 2 unit PRBC hemoglobin up to 8.0 patientscheduled to undergo endoscopic evaluation. Charges/Coding Visit Charges Inpatient E&M: 26765 Init Hosp L3 12/05/24 1829 <Electronically signed by Francisco Friend DO> Cosigner Signature (if applicable): CC: JU Ritchie~ Signed [facility] Work Phone: [phone]) 242-473604-03-2025 Consult note [facility] Medical Records Department [address] [place] [address] Anesthesia Postop Eval II 12/05/242013 MR#: [id number] Acct: [id number] Name: DIAN JANE Rep #:[id number] : 1955 69 From: Simba Her MD PCP: JU Mishra Status:ADM IN Y Race: C Location: [place] [address] 8-1 Anesthesia Postop Eval I Sum Postop Eval Completion status Anesthesia document: Postop Eval 1 completed: Yes Anesthesia Postop Eval I Summary Anesthesia Postop Eval I Summary: Anesthesia Postop Eval I: Assessment Summary Airway patent Yes 12/05/24 18:59 Spontaneous unlabored Yes 12/05/24 18:59 respirations Mental status Awake,Calm 12/05/24 18:59 nausea Yes 12/05/24 18:59 Vomiting No 12/05/24 18:59 Anesthesia Postop Eval I: Fluid Summary Crystalloid volume administer 10 12/05/24 18:59 (ml) Colloids volume administered ( ml) Blood Product volume administered (ml) Total IV fluid infused 10 12/05/24 18:59 Anesthesia Postop Eval I: Summary Notes Anesthesia Complication No 12/05/24 18:59 Anesthesia Complication Comment: Post-operative progress note Anesthesia: Postop Eval II Evaluation Mental status: Awake and Calm Pain Level: 0 nausea: No Vomiting: No Progress Note Post-operative progress note: Nausea improved with breathing from a [place]. Complications Anesthesia Complication: No 12/05/242014 stu MAS> Date _ Simba Her MD Cosigner Signature: Date CC: ~ Signed [facility]04-03-2025 Consult note [facility] Medical Records Department [address] [place] [address] Anesthesia Postop Eval I 12/05/24 1856 MR#: [id number] Acct: [id number] Name: DIAN JANE Rep #:[id number] : 1955 69 From: Simba Her MD PCP: JU Mishra Status:ADM IN Y Race: C Location: [address] Anesthesia: Postop Eval I Current Vital Signs Temperature: 98.5 F Pulse Rate: 89 Blood Pressure: 122/63 Respiratory Rate: 16 Pulse Ox: 94 Oxygen Delivery Method: Room Air Assessment Airway patent: Yes Spontaneous unlabored respirations: Yes Mental status: Awake and Calm nausea: Yes Vomiting: No Anesthesia Complication: No Fluid Hydration Crystalloid volume administer (ml): 10 Total IV fluid infused: 10 Progress Note Anesthesia document: Postop Eval 1 completed: Yes 12/05/24 1859 stu MAS> Date _ Simba Her MD Cosigner Signature: Date CC: ~ Signed [facility]04-03-2025 Consult note Author Simba [facility] Note Date/Time December 05, 2024 4:59 pm [facility] Medical Records Department [address] [place] [address] Pre-Anesthesia Evaluation 12/05/24 1651 MR#: [id number] Acct: [id number] Name: DIAN JANE Rep #:[id number] : 1955 69 From: Simba Her MD PCP: JU Mishra Status:ADM IN Y Race: C Location: [place] [address] ASA Classification* ASA Classification ASA Classification: 3 Assessment & Plan Anesthesia* Anesthesia Assessment Anesthesia Assessment: Discussed sedation and/or anesthesia options, risks, benefits, and alternatives with patient/parents/legal guardian/POA. Questions invited. The patient/parents/legal guardian/POA seems to understand and agrees to proceedwith anesthesia plan. Reviewed the physical assessment, medical history, allergy history and patient home medications list prior to surgery/procedure/anesthetic and documented any changes. Performed airway and anesthesia risk assessments. Anesthesia Type Anesthesia Type: MAC History Source History Obtained from:: Patient and Chart Anesthesia Focused Assessment* Temperature: 98.0 F Pulse Rate: 79 Blood Pressure: 137/86 Respiratory Rate: 20 Pulse Ox: 94 Oxygen Delivery Method: Room Air Airway Assessment Mouth opens: >3 cm Mallampati Score: II Teeth Condition: Dentures (Top dentures are out) Neck Range of motion (ROM): Limited ROM (Slight decrease in extension) Focused Labs Anesthesia Preop lab: CBC WBC 2.8 K/mm3 (4.4-11.0) L 12/05/24 05:12/05/24 RBC 3.63 M/mm3 (4.2-5.4) L 12/05/24 05:12/05/24 Hct 26.2 % (37-47) L 12/05/24 05:12/05/24 Plt Count 105 K/mm3 (150-450) L 12/05/24 05:12/05/24 CHEMISTRY Potassium 3.7 mmol/L (3.3-5.1) 12/05/24 05:12/05/24 Sodium 139 mmol/L (133-145) 12/05/24 05:12/05/24 Magnesium 1.8 mg/dL (1.5-2.2) 12/05/24 05:12/05/24 Phosphorus 3.0 mg/dL (2.7-4.5) 12/05/24 05:12/05/24 BUN 6 mg/dL (4-19) 12/05/24 05:12/05/24 Creatinine 0.55 mg/dL (0.70-1.20) L 12/05/24 05: Glucose 90 mg/dL (70-99) 12/05/24 05:12/05/24 COAG PT 19.1 SECONDS (11.7-14.9) H 12/05/24 05:11/26 Lab additional comments: Patient had troponins at 13:52 today. They were normalrange. 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 When Was Last Pacemaker Check QUESTION #4 FULL TEXT: You/Your Family Experience fever (hyperthermia) with Anesthesia Last Oral Intake Last Oral intake: Last Oral Intake NPO since Meds taken in AM with sips of water? Meds patient instructed to take am of surgery Any additional information?: Yes NPO since: 08:00 (Patient had clear liquids andItalian ice at 8 AM.) PONV PONV - school psychology professor: PONV - school psychology professor Female HX of Motion Sickness HX of N/V After Surgery Non-Smoker Duration of Surgery greater than 60 minutes Number of Risk Factors PONV Score Height & Weight Height & Weight: Anesthesia: Height & Weight Height 5 ft 2 in 12/05/24 11:13 Weight: 115.9 kg 12/05/24 11:13 Body Mass Index (BMI) 46.7 12/04/24 17:11 Respiratory Assessment Respiratory Assessment - school psychology professor: Respiratory Tract Infection Hx - school psychology professor Hx Respiratory Tract Infection STOP Sleep Apnea STOP Sleep Apnea - school psychology professor: STOP Sleep Apnea - school psychology professor Hx Hypertension No 12/04/24 17:11 Hx Sleep Apnea Yes 12/04/24 17:11 CPAP Yes 12/04/24 17:11 BIPAP No 12/04/24 17:11 Do you snore loudly (louder than talking or can be heard Do you often feel tired/ fatigued/ sleepy during daytime? Has anyone observed you stop breathing during sleep? STOP Results Positive 12/04/24 17:11 QUESTION #5 FULL TEXT : Do you snore loudly (louder than talking or can be heard through closed doors)? 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 Specify any problems Hx of Preganancy in last 3 No 12/04/24 17:11 Months Nurse Filling Out Transfusion JNORRIS 12/04/24 17:11 & Questions: Date: 12/04/24 12/04/24 17:11 Time: 17:16 12/04/24 17:11 Patient unable to answer at this time (ie. confused, unrespo /Reproduction History /Reproductive History - school psychology professor: /Reproductive Hx- school psychology professor Hx Now Gestational Age (in weeks): EDC: Hx Hx Para Hx Section SAB Active Medications Active Medications: Current Medications Generic Name Dose Route Start Last Admin Trade Name Freq PRN Reason Stop Dose Admin Acetaminophen 650 mg 12/04/24 17:06 12/04/24 20:19 Acetaminophen 325 Mg Tablet PO 650 mg Q6H PRN PRN Administration Pain 1-10 Or Fever>100.7 Atorvastatin Calcium 5 mg 12/04/24 22:00 12/04/24 20:18 Atorvastatin Calcium 10 Mg Tablet PO 5 mg QHS ELLIOTT Administration Pantoprazole Sodium 40 mg/ 110 mls @ 330 mls/hr 12/04/24 22:00 12/05/24 09:56 Sodium Chloride IV Infused Q12 ELLIOTT Infusion Sodium Chloride 100 mls @ 15 mls/hr 12/04/24 17:22 IV .Q6H40M PRN SALINE FLUSH Sodium Chloride 100 mls @ 15 mls/hr 12/04/24 17:22 IV .Q6H40M PRN Saline Flush Sodium Chloride 100 mls @ 15 mls/hr 12/04/24 17:22 IV .Q6H40M PRN Additional IVPB Infusion Melatonin 3 mg 12/04/24 17:06 Melatonin 3 Mg Tablet PO QHS PRN PRN INSOMNIA Methocarbamol 1,500 mg 12/04/24 22:00 12/04/24 20:19 Methocarbamol 750 Mg Tablet PO 1,500 mg QHS ELLIOTT Administration Nitroglycerin 0.4 mg 12/04/24 17:06 12/05/24 14:03 Nitroglycerin (Inpatient Use) 0.4 Mg Tab.Subl SL 0.4 tablet Q5M PRN Administration chest pain Ondansetron HCl 4 mg 12/04/24 17:06 Ondansetron 4 Mg/2 Ml Vial IV Q8H PRN PRN NAUSEA/VOMITING Sodium Chloride 10 - 40 ml 12/04/24 17:22 12/04/24 21:24 0.9% Saline Lock 10 Ml Syringe IV 10 ml UD PRN Administration SALINE FLUSH PFSH Medical History Bilateral carotid artery disease SEVERINO (obstructive sleep apnea) GERD (gastroesophageal reflux disease) Essential (primary) hypertension Edema Cirrhosis Diabetes type 2 Coronary artery disease Home Medications ?Medication ?Instructions ?Recorded ?Last Taken ?Type cholecalciferol (vitamin D3) 325 50,000 unit PO QODAY 12/04/24 12/03/24 History mcg (13,000 unit) capsule clopidogrel 75 mg tablet (Plavix) 75 mg PO DAILY 12/0412/04/24 History methocarbamol 750 mg tablet 1,500 mg PO QHS 12/04/24 0 12/03/24 History nitroglycerin 0.4 mg sublingual 0.4 mg sublingual Q5-1 5M PRN chest 12/04/24 Unknown History tablet pain pantoprazole 20 mg tablet,delayed 20 mg PO QHS 5 12/03/24 History release simvastatin 10 mg tablet 10 mg PO QHS 12/04/24 History Allergy/AdvReac Type Severity Reaction Status Date / Time Influenza Virus Vaccines Allergy Severe Anaphylaxis Verified 10/06/24 12:03 (flu vaccine) hydrocodone Allergy Angioedema Verified 12/04/24 09:43 Corticosteroids AdvReac Intermediate Other Verified 10/06/24 12:03 (Glucocorticoids) Surgical History History of percutaneous angioplasty (~10/2014) Hx of section Hx of total knee replacement History of total hysterectomy with bilateral salpingo-oophorectomy (BSO) Hx of appendectomy Social History Smoking Status: Never smoker Review of Systems (Anesthesia) ROS Narrative System reviewed and no additional complaints, except as documented. 12/05/24 1135 <Electronically signed by Simba peraza MD> Date _ Simba Her MD Cosigner Signature: Date CC: ~ Signed [facility] Work Phone: 1(776) 989-133104-03-2025 Procedure note [facility] Medical Records Department [address] [place] [address] EGD Report MR#: [id number] Acct: [id number] Name: DIAN JANE Rep #:[id number] : 1955 69 From: Francisco Zaman DO PCP: JU Mishra Status:ADM IN Patient Name: Dian Jane Procedure Date: 12/05/2024 6:26 PM Date of : 1955 Age: 69 Procedure: Upper GI endoscopy Indications: Iron deficiency anemia, Recent gastrointestinal bleeding, For therapy of esophageal varices with bleeding Providers: Francisco Zaman DO Medicines: Monitored Anesthesia Care Patient Profile: This is a 69 year old female. Refer to note in patient chart for documentation of history and physical. Patient has symptoms. Her most recent colonoscopy for treatment of bleeding and EGD for treatment of bleeding. Complications: No immediate complications. Procedure: Pre-Anesthesia Assessment: - Prior to the procedure, a History and Physical was performed, and patient medications and allergies were reviewed. The patient is competent. The risks and benefits of the procedure and the sedation options and risks were discussed with the patient. All questions were answered and informed consent was obtained. Patient identification and proposed procedure were verified by the physician in the pre-procedure area. Mental Status Examination: alert and oriented. Airway Examination: normal oropharyngeal airway and neck mobility. Respiratory Examination: clear to auscultation. CV Examination: normal. Prophylactic Antibiotics: The patient does not require prophylactic antibiotics. Prior Anticoagulants: The patient has taken no anticoagulant or antiplatelet agents except for NSAID medication. ASA Grade Assessment: III - A patient with severe systemic disease. After reviewing the risks and benefits, the patient was deemed in satisfactory condition to undergo the procedure. The anesthesia plan was to use monitored anesthesia care (MAC). Immediately prior to administration of medications, the patient was re-assessed for adequacy to receive sedatives. The heart rate, respiratory rate, oxygen saturations, blood pressure, adequacy of pulmonary ventilation, and response to care were monitored throughout the procedure. The physical status of the patient was re-assessed after the procedure. After obtaining informed consent, the endoscope was passed under direct vision. Throughout the procedure, the patient's blood pressure, pulse, and oxygen saturations were monitored continuously. The Endoscope was introduced through the mouth, and advanced to the fourth part of the duodenum. Small bowel enteroscopy was deemed necessary. The upper GI endoscopy was accomplished without difficulty. The patient tolerated the procedure well. Scope In: 6:40:31 PM Scope Out: 6:47:22 PM Total Procedure Duration Time 0 hours 6 minutes 51 seconds Findings: Grade II varices were found in the middle third of the esophagus and in the lower third of the esophagus. They were 14 mm in largest diameter. Moderate portal hypertensive gastropathy was found in the entire examined stomach. Four 5 mm angiodysplastic lesions with bleeding were found in the second portion of the duodenum and in the fourth portion of the duodenum. Coagulation for hemostasis using heater probe was successful. Estimated blood loss was minimal. Two 5 mm angiodysplastic lesions with typical arborization were found in the jejunum. Coagulation for bleeding prevention using heater probe was successful. Estimated blood loss was minimal. Impression: - Grade II esophageal varices. - Portal hypertensive gastropathy. - Four bleeding angiodysplastic lesions in the duodenum. Treated with a heater probe. - Two angiodysplastic lesions in the jejunum. Treated with a heater probe. - No specimens collected. Recommendation: - Return patient [facility] care. - Full liquid diet today. - Continue present medications. - Nadolol 10 mg twice daily for variceal prophylaxis - Capsule endoscopy Procedure Code(s): --- Professional --- 18870, Small intestinal endoscopy, enteroscopy beyond second portion of duodenum, not including ileum; with control of bleeding (eg, injection, bipolar cautery, unipolar cautery, laser, heater probe, stapler, plasma internet systems administrator) CPT copyright 2021 [employer]. All rights reserved. The codes documented in this report are preliminary and upon natural resource technician review may be revised to meet current compliance requirements. Francisco Zaman DO 12/05/2024 6:55:54 PM This report has been signed electronically. Number of Addenda: 0 Note Initiated On: 12/05/2024 6:26 PM 12/05/241854 Date _ Francisco Barryigneber Signature: Date (if indicated) CC: PATIENT RELATIONS SPECIALISTTiffanie Ritchie; Francisco Zaman DO ~ Date Dictated: 12/05/241825 Date Transcribed: Manager Corporate Communications: RF Signed [facility]04-03-2025 Procedure note [facility] Medical Records Department [address] [place] [address] Operative Report - CC Letter MR#: [id number] Acct: [id number] Name: DIAN JANE Rep #:[id number] : 1955 69 From: Francisco Zaman DO PCP: JU Mishra Status:ADM IN 12/05/2024 Ju Mishra Re : Upper GI endoscopy procedure for Dian Jane Dear Erma This procedure was performed on December. My impressions and recommendations are as follows: Impressions : - Grade II esophageal varices. - Portal hypertensive gastropathy. - Four bleeding angiodysplastic lesions in the duodenum. Treated with a heater probe. - Two angiodysplastic lesions in the jejunum. Treated with a heater probe. - No specimens collected. Recommendations : - Return patient to [facility] care. - Full liquid diet today. - Continue present medications. - Nadolol 10 mg twice daily for variceal prophylaxis - Capsule endoscopy My findings are described in the full procedure note, which is enclosed. If I can be of further assistance, please feel free to contact me at . Sincerely, Francisco Zaman DO 12/05/2024 6:55:54 PM This report has been signed electronically. 12/05/241854 Date _ Francisco Friend DO Joshua Signature: Date (if indicated) CC: PATIENT RELATIONS SPECIALIST-C Valdo Ritchie; Dr. Hamzah Aguirre MD ~ Date Dictated: 12/05/241825 Date Transcribed: Manager Corporate Communications: RF Signed [facility]04-03-2025 Consult note [facility] Medical Records Department [address] [place] [address] Consultation - GI 12/05/241824 MR#: [id number] Acct: [id number] Name: DIAN JANE Rep #:[id number] : 1955 69 From: Francisco Zaman DO PCP: JU Mishra Status:ADM IN Location: [place] [address] HPI Consult Data Date of Consult: 12/05/24 HPI Narrative Reason for Consultation: Anemia HPI Narrative: DIAN JANE, is a 69-year-old female with a past medical history of CAD status post 2 stents on Plavix, type 2 diabetes, PARRY with cirrhosis, hypertension, SEVERINO, GERD who presented to the emergency department with a chief complaint of low hemoglobin. Patient states that [place] was originally from she had multiple scopes done as well as a pillswallow study and they discovered that she had some areas of bleeding in her lower intestines she states that she cannot exactly remember thename of this however she states that she has never had to have blood transfusions in the past. They state that they placed her on iron supplementation and her blood count started to improve withthis. Patient states that she has been having some chest tightness and shortness of breath recentlyas well. Patient states that when she was walking here into the emergency department she felt like her symptoms were worsening. Pt diagnosed with cirrhosis about one year in [place]. She has not had consistent f/uwith GI in the past. Her last EGD was in 2023 showing gastric varices. On aroutine follow-up patient was found to have hemoglobin of 5.6 was sent to the ED. Patient did complain of progressive shortness of breath with activity as well as chest tightness. Stool guaiac obtained in the emergency department cameback positive. An order was given for patient to be transfused with 2 unit PRBCfrom the emergency department [facility] Medical History Bilateral carotid artery disease SEVERINO (obstructive sleep apnea) GERD (gastroesophageal reflux disease) Essential (primary) hypertension Edema Cirrhosis Diabetes type 2 Coronary artery disease Home Medications ?Medication ?Instructions ?Recorded ?Last Taken ?Type cholecalciferol (vitamin D3) 325 50,000 unit PO QODAY 12/04/24 12/03/24 History mcg (13,000 unit) capsule clopidogrel 75 mg tablet (Plavix) 75 mg PO DAILY 12/0412/04/24 History methocarbamol 750 mg tablet 1,500 mg PO QHS 12/04/24 0 12/03/24 History nitroglycerin 0.4 mg sublingual 0.4 mg sublingual Q5-1 5M PRN chest 12/04/24 Unknown History tablet pain pantoprazole 20 mg tablet,delayed 20 mg PO QHS 5 12/03/24 History release simvastatin 10 mg tablet 10 mg PO QHS 12/04/24 History Allergy/AdvReac Type Severity Reaction Status Date / Time Influenza Virus Vaccines Allergy Severe Anaphylaxis Verified 10/06/24 12:03 (flu vaccine) hydrocodone Allergy Angioedema Verified 12/04/24 09:43 Corticosteroids AdvReac Intermediate Other Verified 10/06/24 12:03 (Glucocorticoids) Surgical History History of percutaneous angioplasty (~10/2014) Hx of section Hx of total knee replacement History of total hysterectomy with bilateral salpingo-oophorectomy (BSO) Hx of appendectomy Social History Smoking Status: Never smoker ROS Constitutional Constitutional: Denies fatigue, fever(s), poor appetite, weight gain or weight loss Gastrointestinal Gastrointestinal: Denies belching, bloating, change in bowel habits, change in stool character, chewing difficulty, coffee ground emesis, constipation, cramping, diarrhea, dyspepsia, dysphagia, earlysatiety, excessive flatus, fecalincontinence, heartburn, hematemesis, hematochezia, hemorrhoids, loose stools, melena, nausea, odynophagia, rectal bleeding, tenesmus, vomiting or weight changes Physical Exam Narrative GENERAL: cooperative HEENT: Atraumatic; normocephalic EYES; Anicteric, Normal Conjunctiva NECK; supple, normal thyroid, RESPIRATORY: Diminished to auscultation CARDIOVASCULAR: Regular S1 S2, GI: soft, normoactive bowel sounds, : No Renal angle tenderness; EXTREMITIES: No edema, no clubbing, MUSCULOSKELETAL: no muscle wasting NEURO: Awake; no lateralizing signs. SKIN: No Rash PSYCH; Flat affect Lab / Micro Data 12/05/24 05:27 12/05/24 05:27 Labs: Laboratory Results - last 24 hr 12/04/24 10:19: Crossmatch See Detail 12/04/24 22:58: Troponin T Hi Sens 4Hr 12 12/05/24 05:27: WBC 2.8 L, RBC 3.63 L, Hgb 8.0 L, Hct 26.2 L, MCV 72.2 L D, MCH 22.0 L, MCHC 30.5 LD, RDW Std Deviation 54.6 H, RDW Coeff of Rafa 21.0 H, Plt Count 105 L, MPV 10.1, Immature Gran % (Auto) 0.000, Neut % (Auto) 45.7 L, Lymph% (Auto) 36.3, [place] % (Auto) 11.5 H, Eos % (Auto) 5.4 H, Baso% (Auto) 1.1 H, Absolute Neuts (auto) 1.3 L, Absolute Lymphs (auto) 1.01, Nucleated RBC % 0, Anisocytosis 1+, PT 19.1 H, INR 1.6, APTT 33.1, Sodium 139, Potassium 3.7, Chloride 111 H, Carbon Dioxide 19.6 L, Anion Gap 9, BUN 6, Creatinine 0.55 L, Estim Creat Clear Calc 81.20, Est GFR (MDRD) Non-Af 100, BUN/Creatinine Ratio 10.8, Glucose 90, Calcium 8.4, Phosphorus 3.0, Magnesium 1.8 12/05/24 13:52: Troponin T High Sens 8 12/05/24 15:38: Troponin T Hi Sens 2 Hr 9 Assessment & Plan Assessment/Plan (1) Microcytic anemia: PLAN: Plan Patient is a 69-year-old female presenting with severe microcytic anemia. Hemoglobin 5.7 and MCV of68. Stool guaiac came back positive. Severe microcyctic anemia ? Secondary to suspected chronic blood loss anemia. Patient stool guaiac came back positive subsequently started on Protonix. Patient is on clopidogrel for CAD with previous PCI held. An order was given for patient to be transfused with 2 unit PRBC subsequent monitoring with serial H&H ordered ? 12/05/2024; patient was transfused with 2 unit PRBC hemoglobin up to 8.0 patientscheduled to undergo endoscopic evaluation. Charges/Coding Visit Charges Inpatient E&M: 34760 Init Hosp L3 12/05/24 6958 Cosigner Signature (if applicable): CC: JU Ritchie~ Signed [facility]04-03-2025 Consult note [facility] Medical Records Department [address] [place] [address] Pre-Anesthesia Evaluation 12/05/24 1651 MR#: [id number] Acct: [id number] Name: DIAN JANE Rep #:[id number] : 1955 69 From: Simba Her MD PCP: JU Mishra Status:ADM IN Y Race: C Location: [place] [address] ASA Classification* ASA Classification ASA Classification: 3 Assessment & Plan Anesthesia* Anesthesia Assessment Anesthesia Assessment: Discussed sedation and/or anesthesia options, risks, benefits, and alternatives with patient/parents/legal guardian/POA. Questions invited. The patient/parents/legal guardian/POA seems to understand and agrees to proceedwith anesthesia plan. Reviewed the physical assessment, medical history, allergy history and patient home medications list prior to surgery/procedure/anesthetic and documented any changes. Performed airway and anesthesia risk assessments. Anesthesia Type Anesthesia Type: MAC History Source History Obtained from:: Patient and Chart Anesthesia Focused Assessment* Temperature: 98.0 F Pulse Rate: 79 Blood Pressure: 137/86 Respiratory Rate: 20 Pulse Ox: 94 Oxygen Delivery Method: Room Air Airway Assessment Mouth opens: >3 cm Mallampati Score: II Teeth Condition: Dentures (Top dentures are out) Neck Range of motion (ROM): Limited ROM (Slight decrease in extension) Focused Labs Anesthesia Preop lab: CBC WBC 2.8 K/mm3 (4.4-11.0) L 12/05/24 05:12/05/24 RBC 3.63 M/mm3 (4.2-5.4) L 12/05/24 05:12/05/24 Hct 26.2 % (37-47) L 12/05/24 05:12/05/24 Plt Count 105 K/mm3 (150-450) L 12/05/24 05:12/05/24 CHEMISTRY Potassium 3.7 mmol/L (3.3-5.1) 12/05/24 05:12/05/24 Sodium 139 mmol/L (133-145) 12/05/24 05:12/05/24 Magnesium 1.8 mg/dL (1.5-2.2) 12/05/24 05:12/05/24 Phosphorus 3.0 mg/dL (2.7-4.5) 12/05/24 05:12/05/24 BUN 6 mg/dL (4-19) 12/05/24 05:12/05/24 Creatinine 0.55 mg/dL (0.70-1.20) L 12/05/24 05: Glucose 90 mg/dL (70-99) 12/05/24 05:12/05/24 COAG PT 19.1 SECONDS (11.7-14.9) H 12/05/24 05:11/26 Lab additional comments: Patient had troponins at 13:52 today. They were normalrange. 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 When Was Last Pacemaker Check QUESTION #4 FULL TEXT: You/Your Family Experience fever (hyperthermia) with Anesthesia Last Oral Intake Last Oral intake: Last Oral Intake NPO since Meds taken in AM with sips of water? Meds patient instructed to take am of surgery Any additional information?: Yes NPO since: 08:00 (Patient had clear liquids andItalian ice at 8 AM.) PONV PONV - school psychology professor: PONV - school psychology professor Female HX of Motion Sickness HX of N/V After Surgery Non-Smoker Duration of Surgery greater than 60 minutes Number of Risk Factors PONV Score Height & Weight Height & Weight: Anesthesia: Height & Weight Height 5 ft 2 in 12/05/24 11:13 Weight: 115.9 kg 12/05/24 11:13 Body Mass Index (BMI) 46.7 12/04/24 17:11 Respiratory Assessment Respiratory Assessment - school psychology professor: Respiratory Tract Infection Hx - school psychology professor Hx Respiratory Tract Infection STOP Sleep Apnea STOP Sleep Apnea - school psychology professor: STOP Sleep Apnea - school psychology professor Hx Hypertension No 12/04/24 17:11 Hx Sleep Apnea Yes 12/04/24 17:11 CPAP Yes 12/04/24 17:11 BIPAP No 12/04/24 17:11 Do you snore loudly (louder than talking or can be heard Do you often feel tired/ fatigued/ sleepy during daytime? Has anyone observed you stop breathing during sleep? STOP Results Positive 12/04/24 17:11 QUESTION #5 FULL TEXT : Do you snore loudly (louder than talking or can be heard through closeddoors)? 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 Specify any problems Hx of Preganancy in last 3 No 12/04/24 17:11 Months Nurse Filling Out Transfusion JNORRIS 12/04/24 17:11 & Questions: Date: 12/04/24 12/04/24 17:11 Time: 17:16 12/04/24 17:11 Patient unable to answer at this time (ie. confused, unrespo /Reproduction History /Reproductive History - school psychology professor: /Reproductive Hx- school psychology professor Hx Now Gestational Age (in weeks): EDC: Hx Hx Para Hx Section SAB Active Medications Active Medications: Current Medications Generic Name Dose Route Start Last Admin Trade Name Freq PRN Reason Stop Dose Admin Acetaminophen 650 mg 12/04/24 17:06 12/04/24 20:19 Acetaminophen 325 Mg Tablet PO 650 mg Q6H PRN PRN Administration Pain 1-10 Or Fever>100.7 Atorvastatin Calcium 5 mg 12/04/24 22:00 12/04/24 20:18 Atorvastatin Calcium 10 Mg Tablet PO 5 mg QHS ELLIOTT Administration Pantoprazole Sodium 40 mg/ 110 mls @ 330 mls/hr 12/04/24 22:00 12/05/24 09:56 Sodium Chloride IV Infused Q12 ELLIOTT Infusion Sodium Chloride 100 mls @ 15 mls/hr 12/04/24 17:22 IV .Q6H40M PRN SALINE FLUSH Sodium Chloride 100 mls @ 15 mls/hr 12/04/24 17:22 IV .Q6H40M PRN Saline Flush Sodium Chloride 100 mls @ 15 mls/hr 12/04/24 17:22 IV .Q6H40M PRN Additional IVPB Infusion Melatonin 3 mg 12/04/24 17:06 Melatonin 3 Mg Tablet PO QHS PRN PRN INSOMNIA Methocarbamol 1,500 mg 12/04/24 22:00 12/04/24 20:19 Methocarbamol 750 Mg Tablet PO 1,500 mg QHS ELLIOTT Administration Nitroglycerin 0.4 mg 12/04/24 17:06 12/05/24 14:03 Nitroglycerin (Inpatient Use) 0.4 Mg Tab.Subl SL 0.4 tablet Q5M PRN Administration chest pain Ondansetron HCl 4 mg 12/04/24 17:06 Ondansetron 4 Mg/2 Ml Vial IV Q8H PRN PRN NAUSEA/VOMITING Sodium Chloride 10 - 40 ml 12/04/24 17:22 12/04/24 21:24 0.9% Saline Lock 10 Ml Syringe IV 10 ml UD PRN Administration SALINE FLUSH PFSH Medical History Bilateral carotid artery disease SEVERINO (obstructive sleep apnea) GERD (gastroesophageal reflux disease) Essential (primary) hypertension Edema Cirrhosis Diabetes type 2 Coronary artery disease Home Medications ?Medication ?Instructions ?Recorded ?Last Taken ?Type cholecalciferol (vitamin D3) 325 50,000 unit PO QODAY 12/04/24 12/03/24 History mcg (13,000 unit) capsule clopidogrel 75 mg tablet (Plavix) 75 mg PO DAILY 12/0412/04/24 History methocarbamol 750 mg tablet 1,500 mg PO QHS 12/04/24 0 12/03/24 History nitroglycerin 0.4 mg sublingual 0.4 mg sublingual Q5-1 5M PRN chest 12/04/24 Unknown History tablet pain pantoprazole 20 mg tablet,delayed 20 mg PO QHS 5 12/03/24 History release simvastatin 10 mg tablet 10 mg PO QHS 12/04/24 History Allergy/AdvReac Type Severity Reaction Status Date / Time Influenza Virus Vaccines Allergy Severe Anaphylaxis Verified 10/06/24 12:03 (flu vaccine) hydrocodone Allergy Angioedema Verified 12/04/24 09:43 Corticosteroids AdvReac Intermediate Other Verified 10/06/24 12:03 (Glucocorticoids) Surgical History History of percutaneous angioplasty (~10/2014) Hx of section Hx of total knee replacement History of total hysterectomy with bilateral salpingo-oophorectomy (BSO) Hx of appendectomy Social History Smoking Status: Never smoker Review of Systems (Anesthesia) ROS Narrative System reviewed and no additional complaints, except as documented. 12/05/24 1659 stu MAS> Date _ Simba Her MD Cosigner Signature: Date CC: ~ Signed [facility]04-03-2025 Progress note Author Hamzah Aguirre [facility] Note Date/Time December 05, 2024 11:1 5am [facility] Medical Records Department [address] [place] [address] Progress Note - Hospitalist 12/05/24 1108 MR#: [id number] Acct: [id number] Name: DIAN JANE Rep #:[id number] : 1955 69 From: Hamzah Aguirre MD PCP: JU Mishra Status:ADM IN Location: [place] [address] Reason for Visit Reason for Visit: Diagnoses Iron deficiency anemia, unspecified (12/04/24) Subjective Subjective Patient is a 69-year-old female presenting with severe anemia. Patient was alsofound to have marked microcytosis with hemoglobin 5.7 and MCV of 68. Stool guaiac came back positive admitted to monitored bed for subsequent management. Patient was transfused with 2 unit PRBC subsequently admitted to monitored bed with consultation placed to GI Objective Data Objective Data Vital Signs: Vital Signs Temp Pulse Resp BP Pulse Ox O2 Del Method 97.9 F 77 18 127/75 H 94 Room Air 12/05/24 09:20 12/05/24 09:20 12/05/24 09:20 12/05/24 09:20 12/05/24 09:20 12/05/24 10:00 Oxygen Delivery Method Room Air Weight: 115.9 kg Body Mass Index (BMI) 46.7 Intake & Output: Intake and Output for Last 24 Hours 12/03/24 12/04/24 12/05/24 23:59 23:59 23:59 Intake Total 2520 / 2520 110 / 110 Output Total 0 / 0 Balance 2520 / 2520 110 / 110 Lab / Micro Data 12/05/24 05:27 12/05/24 05:27 Labs: Laboratory Results - last 24 hr 12/04/24 10:19: Crossmatch See Detail 12/04/24 13:41: Troponin T Hi Sens 2 Hr 17 H 12/04/24 22:58: Troponin T Hi Sens 4Hr 12 12/05/24 05:27: WBC 2.8 L, RBC 3.63 L, Hgb 8.0 L, Hct 26.2 L, MCV 72.2 L D, MCH 22.0 L, MCHC 30.5 L D, RDW Std Deviation 54.6 H, RDW Coeff of Rafa 21.0 H, Plt Count 105 L, MPV 10.1, Immature Gran % (Auto) 0.000, Neut % (Auto) 45.7 L, Lymph% (Auto) 36.3, [place] % (Auto) 11.5 H, Eos % (Auto) 5.4 H, Baso % (Auto) 1.1 H, Absolute Neuts (auto) 1.3 L, Absolute Lymphs (auto) 1.01, Nucleated RBC % 0, Anisocytosis 1+, PT 19.1 H, INR 1.6, APTT 33.1, Sodium 139, Potassium 3.7, Chloride 111 H, Carbon Dioxide 19.6 L, Anion Gap 9, BUN 6, Creatinine 0.55 L, Estim Creat Clear Calc 81.20, Est GFR (MDRD) Non-Af 100, BUN/Creatinine Ratio 10.8, Glucose 90, Calcium 8.4, Phosphorus 3.0, Magnesium 1.8 Micro: Microbiology 12/04/24 10:19 Stool Stool Occult Blood (ZEENAT) - Final Occult Blood Positive Radiography Diagnostic Testing: Radiology Impression Abdomen/Pelvis CTA 12/04/24 10:08 IMPRESSION: Ascites. Findings suggestive of cirrhosis of the liver with evidence of splenomegaly. Sigmoid diverticulosis. Reading Location: [facility]- Physical Exam Narrative GENERAL: cooperative HEENT: Atraumatic; normocephalic EYES; Anicteric, Normal Conjunctiva NECK; supple, normal thyroid, RESPIRATORY: Diminished to auscultation CARDIOVASCULAR: Regular S1 S2, GI: soft, normoactive bowel sounds, : No Renal angle tenderness; EXTREMITIES: No edema, no clubbing, MUSCULOSKELETAL: no muscle wasting NEURO: Awake; no lateralizing signs. SKIN: No Rash PSYCH; Flat affect Assessment & Plan Assessment/Plan (1) Microcytic anemia: PLAN: Plan Patient is a 69-year-old female presenting with severe anemia. Patient was alsofound to have marked microcytosis with hemoglobin 5.7 and MCV of 68. Stool guaiac came back positive admitted to monitored bed for subsequent management 1. Severe anemia ? Secondary to suspected chronic blood loss anemia per patient she has had extensive workup at this [facility] in [place]. Requested for old records. Patient stool guaiac came back positive subsequently started on Protonix. Patient is on clopidogrel for CAD with previous PCI held. An order was given for patient to be transfused with 2 unit PRBC subsequent monitoring with serial H&H ordered ? 12/05/2024; patient was transfused with 2 unit PRBC hemoglobin up to 8.0 patientscheduled to undergo endoscopic evaluation by GI. 2. Coronary artery disease ? With previous PCI ; Patient is on clopidogrel as well as simvastatin. Clopidogrel held given patient anemia 3. GERD ? Patient is on PPI 4. Diabetes mellitus type II -patient's oral hypoglycemics held. Placed on long acting insulin, Accu-Cheks a.c. and at bedtime and covered with sliding scale insulin 5. Nonalcoholic fatty liver disease ? Patient currently being followed by Dr. Zaman with GI as outpatient 6. Class III obesity with BMI of 46.8 ? Complicating care weight loss advised 7. Dyslipidemia ?Patient is on statin therapy, continued at home dose 8. DVT prophylaxis ? Chemoprophylaxis contraindicated given patient severe anemia Time spent in the patient's overall evaluation,decision-making process, review of diagnostic data, adjustment of management, discussion with other providers, nursing nursing and ancillary staff involved in patient's care documentation, 50-minute Charges/Coding Visit Charges Inpatient E&M: 55907 Subs Hosp L3 12/05/24 1115 <Electronically signed by Hamzah Aguirre MD> Cosigner Signature (if applicable): CC: ~ Signed [facility] Work Phone: 1(326) 666-318704-03-2025 Progress note [facility] Medical Records Department [address] [place] [address] Progress Note - Hospitalist 12/05/24 1108 MR#: [id number] Acct: [id number] Name: DIAN JANE Rep #:[id number] : [id number] 69 From: Hamzah Aguirre MD PCP: Valdo Erma, PATIENT RELATIONS SPECIALIST-C Status:ADM IN Location: [facility] [id number]- [id number] Reason for Visit Reason for Visit: Diagnoses Iron deficiency anemia, unspecified (12/04/24) Subjective Subjective Patient is a 69-year-old female presenting with severe anemia. Patient was alsofound to have markedmicrocytosis with hemoglobin 5.7 and MCV of 68. Stool guaiac came back positive admitted to monitored bed for subsequent management. Patient was transfused with 2 unit PRBC subsequently admitted to monitored bed with consultation placed to GI Objective Data Objective Data Vital Signs: Vital Signs Temp Pulse Resp BP Pulse Ox O2 Del Method 97.9 F 77 18 127/75 H 94 Room Air 12/05/24 09:20 12/05/24 09:20 12/05/24 09:20 12/05/24 09:20 12/05/24 09:20 12/05/24 10:00 Oxygen Delivery Method Room Air Weight: 115.9 kg Body Mass Index (BMI) 46.7 Intake & Output: Intake and Output for Last 24 Hours 12/03/24 12/04/24 12/05/24 23:59 23:59 23:59 Intake Total 2520 / 2520 110 / 110 Output Total 0 / 0 Balance 2520 / 2520 110 / 110 Lab / Micro Data 12/05/24 05:27 12/05/24 05:27 Labs: Laboratory Results - last 24 hr 12/04/24 10:19: Crossmatch See Detail 12/04/24 13:41: Troponin T Hi Sens 2 Hr 17 H 12/04/24 22:58: Troponin T Hi Sens 4Hr 12 12/05/24 05:27: WBC 2.8 L, RBC 3.63 L, Hgb 8.0 L, Hct 26.2 L, MCV 72.2 L D, MCH 22.0 L, MCHC 30.5 LD, RDW Std Deviation 54.6 H, RDW Coeff of Rafa 21.0 H, Plt Count 105 L, MPV 10.1, Immature Gran % (Auto) 0.000, Neut % (Auto) 45.7 L, Lymph% (Auto) 36.3, [place] % (Auto) 11.5 H, Eos % (Auto) 5.4 H, Baso% (Auto) 1.1 H, Absolute Neuts (auto) 1.3 L, Absolute Lymphs (auto) 1.01, Nucleated RBC % 0, Anisocytosis 1+, PT 19.1 H, INR 1.6, APTT 33.1, Sodium 139, Potassium 3.7, Chloride 111 H, Carbon Dioxide 19.6 L, Anion Gap 9, BUN 6, Creatinine 0.55 L, Estim Creat Clear Calc 81.20, Est GFR (MDRD) Non-Af 100, BUN/Creatinine Ratio 10.8, Glucose 90, Calcium 8.4, Phosphorus 3.0, Magnesium 1.8 Micro: Microbiology 12/04/24 10:19 Stool Stool Occult Blood (ZEENAT) - Final Occult Blood Positive Radiography Diagnostic Testing: Radiology Impression Abdomen/Pelvis CTA 12/04/24 10:08 IMPRESSION: Ascites. Findings suggestive of cirrhosis of the liver with evidence of splenomegaly. Sigmoid diverticulosis. Reading Location: [place] [address] Physical Exam Narrative GENERAL: cooperative HEENT: Atraumatic; normocephalic EYES; Anicteric, Normal Conjunctiva NECK; supple, normal thyroid, RESPIRATORY: Diminished to auscultation CARDIOVASCULAR: Regular S1 S2, GI: soft, normoactive bowel sounds, : No Renal angle tenderness; EXTREMITIES: No edema, no clubbing, MUSCULOSKELETAL: no muscle wasting NEURO: Awake; no lateralizing signs. SKIN: No Rash PSYCH; Flat affect Assessment & Plan Assessment/Plan (1) Microcytic anemia: PLAN: Plan Patient is a 69-year-old female presenting with severe anemia. Patient was alsofound to have markedmicrocytosis with hemoglobin 5.7 and MCV of 68. Stool guaiac came back positive admitted to monitored bed for subsequent management 1. Severe anemia ? Secondary to suspected chronic blood loss anemia per patient she has had extensive workup at [facility] in [place]. Requested for old records. Patient stool guaiac came back positive subsequently started on Protonix. Patient is on clopidogrel for CAD with previous PCI held. An order was given for patient to be transfused with 2 unit PRBC subsequent monitoring with serial H&H ordered ? 12/05/2024; patient was transfused with 2 unit PRBC hemoglobin up to 8.0 patientscheduled to undergo endoscopic evaluation by GI. 2. Coronary artery disease ? With previous PCI ; Patient is on clopidogrel as well as simvastatin. Clopidogrel held given patient anemia 3. GERD ? Patient is on PPI 4. Diabetes mellitus type II -patient's oral hypoglycemics held. Placed on long acting insulin, Accu-Cheks a.c. and at bedtime and covered with sliding scale insulin 5. Nonalcoholic fatty liver disease ? Patient currently being followed by Dr. Zaman with GI as outpatient 6. Class III obesity with BMI of 46.8 ? Complicating care weight loss advised 7. Dyslipidemia ?Patient is on statin therapy, continued at home dose 8. DVT prophylaxis ? Chemoprophylaxis contraindicated given patient severe anemia Time spent in the patient's overall evaluation,decision-making process, review of diagnostic data, adjustment of management, discussion with other providers, nursing nursing and ancillary staff involved in patient's care documentation, 50-minute Charges/Coding Visit Charges Inpatient E&M: 25851 Subs Hosp L3 12/05/24 1115 Cosigner Signature (if applicable): CC: ~ Signed [facility]04-02-2025 History and physical note Author Hamzah Aguirre [facility] Note Date/Time December 04, 2024 1:59 pm [facility] Medical Records Department [address] [place] [address] H&P Exam - Hospitalist 12/04/24 1313 MR#: [id number] Acct: [id number] Name: DIAN JANE Rep #:[id number] : 1955 69 From: Hamzah Aguirre MD PCP: JU Mishra Status:REG ER Location: ED HPI - General General Date of Admission: 12/04/24 Date of Service: 12/04/24 Chief Complaint: Abnormal labs HPI Narrative DIAN JANE, is a 69 F with past medical history signal for nonalcoholic fatty liver disease, coronary artery disease with previous PCI on antiplatelet therapy, history of anemia for which patient underwent extensive studies including EGD, capsule endoscopy as well as colonoscopy at [facility] in [facility]. Patient was diagnosed with AVMs.. Patient apparently did move to [place] and has been followed by Dr. Zaman with GI. On a routine follow-up patient was found to have hemoglobin of 5.6 was sent to the ED. Patient did complain of progressive shortness of breath with activity as well as chest tightness. Stool guaiac obtained in the emergency department came back positive. An order was given for patient to be transfused with 2 unit PRBC fromthe emergency department and subsequently admitted to monitored bed with consultation placed to GI [facility] Medical History Bilateral carotid artery disease SEVERINO (obstructive sleep apnea) GERD (gastroesophageal reflux disease) Essential (primary) hypertension Edema Cirrhosis Diabetes type 2 Coronary artery disease Home Medications ?Medication ?Instructions ?Recorded ?Last Taken ?Type cholecalciferol (vitamin D3) 325 50,000 unit PO QODAY 12/04/24 12/03/24 History mcg (13,000 unit) capsule clopidogrel 75 mg tablet (Plavix) 75 mg PO DAILY 12/0412/04/24 History methocarbamol 750 mg tablet 1,500 mg PO QHS 12/04/24 0 12/03/24 History nitroglycerin 0.4 mg sublingual 0.4 mg sublingual Q5-1 5M PRN chest 12/04/24 Unknown History tablet pain pantoprazole 20 mg tablet,delayed 20 mg PO QHS 5 12/03/24 History release simvastatin 10 mg tablet 10 mg PO QHS 12/04/24 History Allergy/AdvReac Type Severity Reaction Status Date / Time Influenza Virus Vaccines Allergy Severe Anaphylaxis Verified 10/06/24 12:03 (flu vaccine) hydrocodone Allergy Angioedema Verified 12/04/24 09:43 Corticosteroids AdvReac Intermediate Other Verified 10/06/24 12:03 (Glucocorticoids) Surgical History History of percutaneous angioplasty (~10/2014) Hx of section Hx of total knee replacement History of total hysterectomy with bilateral salpingo-oophorectomy (BSO) Hx of appendectomy Social History Smoking Status: Never smoker ROS ROS Narrative GENERAL: denies fever, chills, night sweats, weight loss, anorexia HEENT: denies headache, sinus congestion, or drainage, dysphagia RESPIRATORY: shortness of breath, dyspnea on exertion CARDIAC: denies chest pain, palpitations, orthopnea, PND GASTROINTESTINAL: denies abdominal pain, nausea, vomiting, melena, GENITOURINARY: denies dysuria, urgency, frequency, heamaturia EXTREMITY: denies swelling MUSCULOSKELETAL: denies current joint pain or tenderness NEUROLOGIC: denies focal numbness, weakness, tingling HEMATOLOGIC: denies easy bruising and/or hemorrhage INTEGUMENT: denies rashes PSYCHIATRIC: denies suicidal or homicidal ideation Vital Signs Vital Signs Vital Signs: 12/04/24 09:41 12/04/24 10:36 12/04/24 11:00 Temperature 98.2 F Temperature Source Oral Pulse Rate 123 H 97 Respiratory Rate 20 H 15 Respiratory Effort Short of Breath Blood Pressure 160/99 H 151/71 H Blood Pressure Mean 119 97 Blood Pressure Source Blood Pressure Position Blood Pressure Location Pulse Ox 100 96 Oxygen Delivery Method Room Air Room Air 12/04/24 11:46 12/04/24 12:00 12/04/24 12:01 Temperature 97.6 F L 97.9 F Temperature Source Oral Oral Pulse Rate 87 87 87 Respiratory Rate 15 17 18 Respiratory Effort Blood Pressure 138/65 H 142/66 H 142/66 H Blood Pressure Mean 89 91 91 Blood Pressure Source Monitor Monitor Blood Pressure Position Semi-Fowlers Semi-Fowlers Blood Pressure Location Left Arm Left Arm Pulse Ox 97 98 97 Oxygen Delivery Method Room Air Room Air Room Air 12/04/24 12:46 12/04/24 13:00 Temperature 98.1 F Temperature Source Oral Pulse Rate 85 87 Respiratory Rate 25 H 20 H Respiratory Effort Blood Pressure 128/49 H 128/49 H Blood Pressure Mean 75 75 Blood Pressure Source Monitor Blood Pressure Position Semi-Fowlers Blood Pressure Location Left Arm Pulse Ox 98 100 Oxygen Delivery Method Room Air Weight Weight: 116.12 kg Body Mass Index (BMI) 46.7 Physical Exam Narrative GENERAL: cooperative HEENT: Atraumatic; normocephalic EYES; Anicteric, Normal Conjunctiva NECK; supple, normal thyroid, RESPIRATORY: Diminished to auscultation CARDIOVASCULAR: Regular S1 S2, GI: soft, normoactive bowel sounds, : No Renal angle tenderness; EXTREMITIES: No edema, no clubbing, MUSCULOSKELETAL: no muscle wasting NEURO: Awake; no lateralizing signs. SKIN: No Rash PSYCH; Flat affect Results Lab / Micro Data 12/04/24 10:19 12/04/24 10:19 Labs: Laboratory Results - last 24 hr 12/04/24 10:19: WBC 2.8 L, RBC 3.00 L, Hgb 5.7 L*, Hct 20.4 L, MCV 68.0 L, MCH 19.0 L, MCHC 27.9 L, RDW Std Deviation 44.7 H, RDW Coeff of Rafa 18.4 H, Plt Count 119 L, MPV 10.4, Immature Gran % (Auto) 0.700, Neut % (Auto) 46.9 L, Lymph% (Auto) 32.0, [place] % (Auto) 14.7 H, Eos % (Auto) 4.3, Baso % (Auto) 1.4 H, Absolute Neuts (auto) 1.3 L, Absolute Lymphs (auto) 0.89, Nucleated RBC % 0, DiffPath Review January, Sodium 139, Potassium 3.4, Chloride 108, Carbon Dioxide 20.0 L, Anion Gap 11, BUN 10, Creatinine 0.57 L, Estim Creat Clear Calc 81.29, Est GFR (MDRD) Non-Af 99, BUN/Creatinine Ratio 17.8, Glucose 111 H, Calcium 8.5,Total Bilirubin 0.72, AST 39 H, ALT 16, Alkaline Phosphatase 142 H, Troponin T High Sens 8, Total Protein 6.2, Albumin 3.4, Globulin 2.8, Albumin/Globulin Ratio 1.2, Lipase 33, Blood Type O POSITIVE, Antibody Screen NEGATIVE, Crossmatch See Detail Micro: Microbiology 12/04/24 10:19 Stool Stool Occult Blood (ZEENAT) - Final Occult Blood Positive Imaging Radiology Impression Abdomen/Pelvis CTA 12/04/24 10:08 IMPRESSION: Ascites. Findings suggestive of cirrhosis of the liver with evidence of splenomegaly. Sigmoid diverticulosis. Reading Location: [facility] Assessment & Plan Assessment/Plan (1) Microcytic anemia: PLAN: Plan Patient is a 69-year-old female presenting with severe anemia. Patient was alsofound to have marked microcytosis with hemoglobin 5.7 and MCV of 68. Stool guaiac came back positive admitted to monitored bed for subsequent management 1. Severe anemia ? Secondary to suspected chronic blood loss anemia per patient she has had extensive workup at this [facility] in [place]. Requested for old records. Patient stool guaiac came back positive subsequently started on Protonix. Patient is on clopidogrel for CAD with previous PCI held. An order was given for patient to be transfused with 2 unit PRBC subsequent monitoring with serial H&H ordered 2. Coronary artery disease ? With previous PCI ; Patient is on clopidogrel as well as simvastatin. Clopidogrel held given patient anemia 3. GERD ? Patient is on PPI 4. Diabetes mellitus type II -patient's oral hypoglycemics held. Placed on long acting insulin, Accu-Cheks a.c. and at bedtime and covered with sliding scale insulin 5. Nonalcoholic fatty liver disease ? Patient currently being followed by Dr. Zaman with GI as outpatient 6. Class III obesity with BMI of 46.8 ? Complicating care weight loss advised 7. Dyslipidemia ?Patient is on statin therapy, continued at home dose 8. DVT prophylaxis ? Chemoprophylaxis contraindicated given patient severe anemia Time spent in the patient's overall evaluation,decision-making process, review of diagnostic data, adjustment of management, discussion with other providers, nursing nursing and ancillary staff involved in patient's care documentation, 75 Minutes Advance planning; did discuss with the patient and family regarding advanced directives as well as CODE STATUS. Did explain the various scenarios involved (FULL CODE, DNR CCA, DNR CCA with no intubation, and DNR CC and what each meant) patient elected to remain full code with CPR intubation if needed. Order was placed. Time spent on discussion 16 minutes. Charges/Coding Multi Select Codes Visit Charges Visit Charges: 71698 Init Hosp Hospitalists' Procedures Procedures: 07994 Advncd Care Plan 30 Min 12/04/24 0262 <Electronically signed by Hamzah Aguirre MD> Cosigner Signature (if applicable): CC: PATIENT RELATIONS SPECIALIST-C Valdo Ritchie; Dr. Hamzah Aguirre MD~ Signed [facility] Work Phone: 1(859) 951-996704-02-2025 History and physical note Author Hamzah Aguirre [facility] Note Date/Time December 04, 2024 1:59 pm [facility] Medical Records Department [address] [place] [address] H&P Exam - Hospitalist 12/04/24 1313 MR#: [id number] Acct: [id number] Name: DIAN JANE Rep #:[id number] : 1955 69 From: Hamzah Aguirre MD PCP: Valdo Erma, PATIENT RELATIONS SPECIALIST-C Status:REG ER Location: ED HPI - General General Date of Admission: 12/04/24 Date of Service: 12/04/24 Chief Complaint: Abnormal labs HPI Narrative DIAN JANE, is a 69 F with past medical history signal for nonalcoholic fatty liver disease, coronary artery disease with previous PCI on antiplatelet therapy, history of anemia for which patient underwent extensive studies including EGD, capsule endoscopy as well as colonoscopy at [facility] in [facility]. Patient was diagnosed with AVMs.. Patient apparently did move to [place] and has been followed by Dr. Zaman with GI. On a routine follow-up patient was found to have hemoglobin of 5.6 was sent to the ED. Patient did complain of progressive shortness of breath with activity as well as chest tightness. Stool guaiac obtained in the emergency department came back positive. An order was given for patient to be transfused with 2 unit PRBC fromthe emergency department and subsequently admitted to monitored bed with consultation placed to GI [facility] Medical History Bilateral carotid artery disease SEVERINO (obstructive sleep apnea) GERD (gastroesophageal reflux disease) Essential (primary) hypertension Edema Cirrhosis Diabetes type 2 Coronary artery disease Home Medications ?Medication ?Instructions ?Recorded ?Last Taken ?Type cholecalciferol (vitamin D3) 325 50,000 unit PO QODAY 12/04/24 12/03/24 History mcg (13,000 unit) capsule clopidogrel 75 mg tablet (Plavix) 75 mg PO DAILY 12/0412/04/24 History methocarbamol 750 mg tablet 1,500 mg PO QHS 12/04/24 0 12/03/24 History nitroglycerin 0.4 mg sublingual 0.4 mg sublingual Q5-1 5M PRN chest 12/04/24 Unknown History tablet pain pantoprazole 20 mg tablet,delayed 20 mg PO QHS 5 12/03/24 History release simvastatin 10 mg tablet 10 mg PO QHS 12/04/24 History Allergy/AdvReac Type Severity Reaction Status Date / Time Influenza Virus Vaccines Allergy Severe Anaphylaxis Verified 10/06/24 12:03 (flu vaccine) hydrocodone Allergy Angioedema Verified 12/04/24 09:43 Corticosteroids AdvReac Intermediate Other Verified 10/06/24 12:03 (Glucocorticoids) Surgical History History of percutaneous angioplasty (~10/2014) Hx of section Hx of total knee replacement History of total hysterectomy with bilateral salpingo-oophorectomy (BSO) Hx of appendectomy Social History Smoking Status: Never smoker ROS ROS Narrative GENERAL: denies fever, chills, night sweats, weight loss, anorexia HEENT: denies headache, sinus congestion, or drainage, dysphagia RESPIRATORY: shortness of breath, dyspnea on exertion CARDIAC: denies chest pain, palpitations, orthopnea, PND GASTROINTESTINAL: denies abdominal pain, nausea, vomiting, melena, GENITOURINARY: denies dysuria, urgency, frequency, heamaturia EXTREMITY: denies swelling MUSCULOSKELETAL: denies current joint pain or tenderness NEUROLOGIC: denies focal numbness, weakness, tingling HEMATOLOGIC: denies easy bruising and/or hemorrhage INTEGUMENT: denies rashes PSYCHIATRIC: denies suicidal or homicidal ideation Vital Signs Vital Signs Vital Signs: 12/04/24 09:41 12/04/24 10:36 12/04/24 11:00 Temperature 98.2 F Temperature Source Oral Pulse Rate 123 H 97 Respiratory Rate 20 H 15 Respiratory Effort Short of Breath Blood Pressure 160/99 H 151/71 H Blood Pressure Mean 119 97 Blood Pressure Source Blood Pressure Position Blood Pressure Location Pulse Ox 100 96 Oxygen Delivery Method Room Air Room Air 12/04/24 11:46 12/04/24 12:00 12/04/24 12:01 Temperature 97.6 F L 97.9 F Temperature Source Oral Oral Pulse Rate 87 87 87 Respiratory Rate 15 17 18 Respiratory Effort Blood Pressure 138/65 H 142/66 H 142/66 H Blood Pressure Mean 89 91 91 Blood Pressure Source Monitor Monitor Blood Pressure Position Semi-Fowlers Semi-Fowlers Blood Pressure Location Left Arm Left Arm Pulse Ox 97 98 97 Oxygen Delivery Method Room Air Room Air Room Air 12/04/24 12:46 12/04/24 13:00 Temperature 98.1 F Temperature Source Oral Pulse Rate 85 87 Respiratory Rate 25 H 20 H Respiratory Effort Blood Pressure 128/49 H 128/49 H Blood Pressure Mean 75 75 Blood Pressure Source Monitor Blood Pressure Position Semi-Fowlers Blood Pressure Location Left Arm Pulse Ox 98 100 Oxygen Delivery Method Room Air Weight Weight: 116.12 kg Body Mass Index (BMI) 46.7 Physical Exam Narrative GENERAL: cooperative HEENT: Atraumatic; normocephalic EYES; Anicteric, Normal Conjunctiva NECK; supple, normal thyroid, RESPIRATORY: Diminished to auscultation CARDIOVASCULAR: Regular S1 S2, GI: soft, normoactive bowel sounds, : No Renal angle tenderness; EXTREMITIES: No edema, no clubbing, MUSCULOSKELETAL: no muscle wasting NEURO: Awake; no lateralizing signs. SKIN: No Rash PSYCH; Flat affect Results Lab / Micro Data 12/04/24 10:19 12/04/24 10:19 Labs: Laboratory Results - last 24 hr 12/04/24 10:19: WBC 2.8 L, RBC 3.00 L, Hgb 5.7 L*, Hct 20.4 L, MCV 68.0 L, MCH 19.0 L, MCHC 27.9 L, RDW Std Deviation 44.7 H, RDW Coeff of Rafa 18.4 H, Plt Count 119 L, MPV 10.4, Immature Gran % (Auto) 0.700, Neut % (Auto) 46.9 L, Lymph% (Auto) 32.0, [place] % (Auto) 14.7 H, Eos % (Auto) 4.3, Baso % (Auto) 1.4 H, Absolute Neuts (auto) 1.3 L, Absolute Lymphs (auto) 0.89, Nucleated RBC % 0, DiffPath Review January, Sodium 139, Potassium 3.4, Chloride 108, Carbon Dioxide 20.0 L, Anion Gap 11, BUN 10, Creatinine 0.57 L, Estim Creat Clear Calc 81.29, Est GFR (MDRD) Non-Af 99, BUN/Creatinine Ratio 17.8, Glucose 111 H, Calcium 8.5,Total Bilirubin 0.72, AST 39 H, ALT 16, Alkaline Phosphatase 142 H, Troponin T High Sens 8, Total Protein 6.2, Albumin 3.4, Globulin 2.8, Albumin/Globulin Ratio 1.2, Lipase 33, Blood Type O POSITIVE, Antibody Screen NEGATIVE, Crossmatch See Detail Micro: Microbiology 12/04/24 10:19 Stool Stool Occult Blood (ZEENAT) - Final Occult Blood Positive Imaging Radiology Impression Abdomen/Pelvis CTA 12/04/24 10:08 IMPRESSION: Ascites. Findings suggestive of cirrhosis of the liver with evidence of splenomegaly. Sigmoid diverticulosis. [facility] Assessment & Plan Assessment/Plan (1) Microcytic anemia: PLAN: Plan Patient is a 69-year-old female presenting with severe anemia. Patient was alsofound to have marked microcytosis with hemoglobin 5.7 and MCV of 68. Stool guaiac came back positive admitted to monitored bed for subsequent management 1. Severe anemia ? Secondary to suspected chronic blood loss anemia per patient she has had extensive workup at this [facility] in [place]. Requested for old records. Patient stool guaiac came back positive subsequently started on Protonix. Patient is on clopidogrel for CAD with previous PCI held. An order was given for patient to be transfused with 2 unit PRBC subsequent monitoring with serial H&H ordered 2. Coronary artery disease ? With previous PCI ; Patient is on clopidogrel as well as simvastatin. Clopidogrel held given patient anemia 3. GERD ? Patient is on PPI 4. Diabetes mellitus type II -patient's oral hypoglycemics held. Placed on long acting insulin, Accu-Cheks a.c. and at bedtime and covered with sliding scale insulin 5. Nonalcoholic fatty liver disease ? Patient currently being followed by Dr. Zaman with GI as outpatient 6. Class III obesity with BMI of 46.8 ? Complicating care weight loss advised 7. Dyslipidemia ?Patient is on statin therapy, continued at home dose 8. DVT prophylaxis ? Chemoprophylaxis contraindicated given patient severe anemia Time spent in the patient's overall evaluation,decision-making process, review of diagnostic data, adjustment of management, discussion with other providers, nursing nursing and ancillary staff involved in patient's care documentation, 75 Minutes Advance planning; did discuss with the patient and family regarding advanced directives as well as CODE STATUS. Did explain the various scenarios involved (FULL CODE, DNR CCA, DNR CCA with no intubation, and DNR CC and what each meant) patient elected to remain full code with CPR intubation if needed. Order was placed. Time spent on discussion 16 minutes. Charges/Coding Multi Select Codes Visit Charges Visit Charges: 81683 Init Hosp L3 Hospitalists' Procedures Procedures: 20358 Advncd Care Plan 30 Min 12/04/24 6264 <Electronically signed by Hamzah Aguirre MD> Cosigner Signature (if applicable): CC: PATIENT RELATIONS SPECIALIST-C Valdo Ritchie; Dr. Hamzah Aguirre MD~ Signed [facility] Work Phone: 1(750) 783-555604-02-2025 Discharge summary Author Naga Mcleod [facility] Note Date/Time December 04, 2024 1:04 pm [facility] Medical Records Department [address] [place] [address] Emergency Department Summary 12/04/24 MR#: [id number] Acct: [id number] Name: DIAN JANE Rep #:[id number] : 1955 69 From: Naga Mcleod DO PCP: JU Mishra Status:REG ER Location: ED HPI History of Present Illness Chief Complaint: Chest Pain Narrative Narrative: Patient is a 69-year-old female with a past medical history of CAD status post 2stents on Plavix, type 2 diabetes, PARRY with cirrhosis, hypertension, SEVERINO, GERD who presented to the emergency department from her gastroenterology's office with a chief complaint of low hemoglobin. Patient states that from [place] down in [place] where she was originally from she had multiple scopes done as well as a pill swallow study and they discovered that she had some areas of bleeding in her lower intestines she states that she cannot exactly remember the name of this however she states that she has never had to have blood transfusions in the past. They state that they placed her on iron supplementation and her blood count started to improve with this. Patient states that she has been having some chest tightness and shortness of breath recently as well. Patient states that when she was walking here into the emergency department she felt like her symptoms were worsening. [facility] Medical History Bilateral carotid artery disease SEVERINO (obstructive sleep apnea) GERD (gastroesophageal reflux disease) Essential (primary) hypertension Edema Cirrhosis Diabetes type 2 Coronary artery disease Home Medications ?Medication ?Instructions ?Recorded ?Last Taken ?Type cholecalciferol (vitamin D3) 325 50,000 unit PO QODAY 12/04/24 12/03/24 History mcg (13,000 unit) capsule clopidogrel 75 mg tablet (Plavix) 75 mg PO DAILY 12/0412/04/24 History methocarbamol 750 mg tablet 1,500 mg PO QHS 12/04/24 0 12/03/24 History nitroglycerin 0.4 mg sublingual 0.4 mg sublingual Q5-1 5M PRN chest 12/04/24 Unknown History tablet pain pantoprazole 20 mg tablet,delayed 20 mg PO QHS 5 12/03/24 History release simvastatin 10 mg tablet 10 mg PO QHS 12/04/24 History Allergy/AdvReac Type Severity Reaction Status Date / Time Influenza Virus Vaccines Allergy Severe Anaphylaxis Verified 10/06/24 12:03 (flu vaccine) hydrocodone Allergy Angioedema Verified 12/04/24 09:43 Corticosteroids AdvReac Intermediate Other Verified 10/06/24 12:03 (Glucocorticoids) Surgical History History of percutaneous angioplasty (~10/2014) Hx of section Hx of total knee replacement History of total hysterectomy with bilateral salpingo-oophorectomy (BSO) Hx of appendectomy Social History Smoking Status: Never smoker ROS ROS ED ROS Narrative Constitutional: Denies fevers, chills, headaches, lightness, dizziness Eyes: Denies change in vision double vision blurry vision Cardiovascular: Complains of chest pain as noted above denies palpitations Respiratory: Complains shortness of breath denies coughing wheezing Abdomen: Complains of some lower abdominal discomfort denies nausea vomit diarrhea : Denies urinary symptoms Neurological: Denies numbness, wheeze, tingling Musculoskeletal: Denies back pain Skin: Denies rashes or lesions EXAM Physical Exam Narrative Exam Narrative: General: Patient lying in bed rest complete not appear to be in acute distress Head: Atraumatic, normocephalic Eyes: PERRL bilaterally, EOMI bilateral, no conjunctival injection noted Neck: Soft, supple, trachea midline Cardiovascular: Patient tachycardic with a regular rhythm no murmurs gallops rubs noted Respiratory: Clear to auscultation bilaterally Abdomen: Soft, nondistended, nontender to palpation no rebound or guarding on exam Rectal: Rectal exam performed and minimal amount of stool noted however some brown stool was noted no yamileth dark tarry stool Extremities: Patient has bilateral lower extremity swelling but states that she chronically has lower extremity swelling and this is not worse than her baseline Neurological: Denies numbness, exam tingling Skin: Denies rashes or lesions Const Vital Signs: 12/04/24 09:41 12/04/24 10:36 12/04/24 11:00 Temperature 98.2 F Temperature Source Oral Pulse Rate 123 H 97 Respiratory Rate 20 H 15 Respiratory Effort Short of Breath Blood Pressure 160/99 H 151/71 H Blood Pressure Mean 119 97 Blood Pressure Source Blood Pressure Position Blood Pressure Location Pulse Ox 100 96 Oxygen Delivery Method Room Air Room Air 12/04/24 11:46 12/04/24 12:00 12/04/24 12:01 Temperature 97.6 F L 97.9 F Temperature Source Oral Oral Pulse Rate 87 87 87 Respiratory Rate 15 17 18 Respiratory Effort Blood Pressure 138/65 H 142/66 H 142/66 H Blood Pressure Mean 89 91 91 Blood Pressure Source Monitor Monitor Blood Pressure Position Semi-Fowlers Semi-Fowlers Blood Pressure Location Left Arm Left Arm Pulse Ox 97 98 97 Oxygen Delivery Method Room Air Room Air Room Air 12/04/24 12:46 Temperature 98.1 F Temperature Source Oral Pulse Rate 85 Respiratory Rate 25 H Respiratory Effort Blood Pressure 128/49 H Blood Pressure Mean 75 Blood Pressure Source Monitor Blood Pressure Position Semi-Fowlers Blood Pressure Location Left Arm Pulse Ox 98 Oxygen Delivery Method MDM MDM MDM Narrative Medical decision making narrative: Patient is a 69-year-old female who presented to the emergency department the chief complaint of low hemoglobin as well as chest pain and shortness of breath. On the differential diagnose includes but not limited to anemia, ACS, lower GI bleed. Once workup is obtained and reviewed she will be reevaluated. Patient CBC was reviewed and white blood count was noted be 2.8 hemoglobin repeated was 5.7 she was typed and screened for 3 units of blood, patient does have a microcytic anemia with MCV of 68. Patient is thrombocytopenic with a platelet count of 119 she does have a history of cirrhosis and PARRY. Patient's INR 1.5, PT of 18.7. Patient sodium was 139, potassium 3.4, creatinine 0.57. Patient's BUN noted to be 10. Patient's AST and ALT were 39 and 16 respectively. Patient troponin was 8, CRP less than 3. Patient lipase was noted to be 33. Patient CTA of the abdomen pelvis showed ascites finding suggestive of cirrhosis with evidence of splenomegaly sigmoid diverticulosis noted. Patient was fecal occult positive she was given 40 mg IV Protonix I reached out to Dr. 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 Patient's EKG reviewed showed sinus rhythm with a rate of 97 bpm. Discussed case with hospitalist Dr. Aguirre who accept patient for admission. Patient notified as well as significant other bedside all question concerns answered Lab Data Labs: Laboratory Results - last 24 hr 12/04/24 10:19 WBC 2.8 L RBC 3.00 L Hgb 5.7 L* Hct 20.4 L MCV 68.0 L MCH 19.0 L MCHC 27.9 L RDW Std Deviation 44.7 H RDW Coeff of Rafa 18.4 H Plt Count 119 L MPV 10.4 Immature Gran % (Auto) 0.700 Neut % (Auto) 46.9 L Lymph % (Auto) 32.0 [place] % (Auto) 14.7 H Eos % (Auto) 4.3 Baso % (Auto) 1.4 H Absolute Neuts (auto) 1.3 L Absolute Lymphs (auto) 0.89 Nucleated RBC % [address] Review May foll Sodium 139 Potassium 3.4 Chloride 108 Carbon Dioxide 20.0 L Anion Gap 11 BUN 10 Creatinine 0.57 L Estim Creat Clear Calc 81.29 Est GFR (MDRD) Non-Af 99 BUN/Creatinine Ratio 17.8 Glucose 111 H Calcium 8.5 Total Bilirubin 0.72 AST 39 H ALT 16 Alkaline Phosphatase 142 H Troponin T High Sens 8 Total Protein 6.2 Albumin 3.4 Globulin 2.8 Albumin/Globulin Ratio 1.2 Lipase 33 Blood Type O POSITIVE Antibody Screen NEGATIVE Crossmatch See Detail Radiography Diagnostic Testing: Clinical Impression(s) from Imaging Studies Abdomen/Pelvis CTA 12/04/24 10:08 IMPRESSION: Ascites. Findings suggestive of cirrhosis of the liver with evidence of splenomegaly. Sigmoid diverticulosis. Reading Location: [place] [address] Discharge Plan Triage Chief Complaint: Chest Pain Other Complaint: Abn Labs ED Provider: Naga Mcleod Dx/Rx/DC Orders Clinical Impression: Coronary artery disease, Anemia, GI (gastrointestinal bleed), Microcytic anemia Prescriptions: No Action nitroglycerin 0.4 mg tablet, sublingual 0.4 mg sublingual Q5-15M PRN (Reason: chest pain) Rx Instructions: do not exceed 3 doses per episode clopidogrel [Plavix] 75 mg tablet 75 mg PO DAILY pantoprazole 20 mg tablet,delayed release (DR/EC) 20 mg PO QHS Patient Comments: PT UNSURE IF SHE TAKES 20MG OR 40MG. SHE HAD 40MG RECENTLY FILLED, BUT SAID SHE DID NOT PICK ANYTHING UP. simvastatin 10 mg tablet 10 mg PO QHS methocarbamol 750 mg tablet 1,500 mg PO QHS cholecalciferol (vitamin D3) 325 mcg (13,000 unit) capsule 50,000 unit PO QODAY Patient Comments: PT UNSURE OF STRENGTH Primary Care Provider: Valdo Ritchie Referrals: Valdo Ritchie NP-C [Primary Care Provider] - Print Language: Honduran Disposition Disposition: Acute Care Hospital [facility] What to do if you have Problems For any increased pain, shortness of breath, bleeding, nausea or vomiting, chestpain, or any unexpected problems, contact your Primary Care Provider. Call [facility] ([phone]) or report to the closest Emergency Room. Call 911 if necessary. 12/04/24 1304 <Electronically signed by Naga Mcleod DO> Cosigner Signature (if applicable): CC: JU Ritchie ~ Signed [facility] Work Phone: 1(879) 998-762304-02-2025 Discharge summary Author Naga Mcleod [facility] Note Date/Time December 04, 2024 1:04 pm [facility] Medical Records Department [address] [place] [address] Emergency Department Summary 12/04/24 MR#: [id number] Acct: [id number] Name: DIAN JANE Rep #:[id number] : 1955 69 From: Naga Mcleod DO PCP: JU Mishra Status:REG ER Location: ED HPI History of Present Illness Chief Complaint: Chest Pain Narrative Narrative: Patient is a 69-year-old female with a past medical history of CAD status post 2stents on Plavix, type 2 diabetes, PARRY with cirrhosis, hypertension, SEVERINO, GERD who presented to the emergency department from her gastroenterology's office with a chief complaint of low hemoglobin. Patient states that [place] she was originally from she had multiple scopes done as well as a pill swallow study and they discovered that she had some areas of bleeding in her lower intestines she states that she cannot exactly remember the name of this however she states that she has never had to have blood transfusions in the past. They state that they placed her on iron supplementation and her blood count started to improve with this. Patient states that she has been having some chest tightness and shortness of breath recently as well. Patient states that when she was walking here into the emergency department she felt like her symptoms were worsening. [facility] Medical History Bilateral carotid artery disease SEVERINO (obstructive sleep apnea) GERD (gastroesophageal reflux disease) Essential (primary) hypertension Edema Cirrhosis Diabetes type 2 Coronary artery disease Home Medications ?Medication ?Instructions ?Recorded ?Last Taken ?Type cholecalciferol (vitamin D3) 325 50,000 unit PO QODAY 12/04/24 12/03/24 History mcg (13,000 unit) capsule clopidogrel 75 mg tablet (Plavix) 75 mg PO DAILY 12/0412/04/24 History methocarbamol 750 mg tablet 1,500 mg PO QHS 12/04/24 0 12/03/24 History nitroglycerin 0.4 mg sublingual 0.4 mg sublingual Q5-1 5M PRN chest 12/04/24 Unknown History tablet pain pantoprazole 20 mg tablet,delayed 20 mg PO QHS 5 12/03/24 History release simvastatin 10 mg tablet 10 mg PO QHS 12/04/24 History Allergy/AdvReac Type Severity Reaction Status Date / Time Influenza Virus Vaccines Allergy Severe Anaphylaxis Verified 10/06/24 12:03 (flu vaccine) hydrocodone Allergy Angioedema Verified 12/04/24 09:43 Corticosteroids AdvReac Intermediate Other Verified 10/06/24 12:03 (Glucocorticoids) Surgical History History of percutaneous angioplasty (~10/2014) Hx of section Hx of total knee replacement History of total hysterectomy with bilateral salpingo-oophorectomy (BSO) Hx of appendectomy Social History Smoking Status: Never smoker ROS ROS ED ROS Narrative Constitutional: Denies fevers, chills, headaches, lightness, dizziness Eyes: Denies change in vision double vision blurry vision Cardiovascular: Complains of chest pain as noted above denies palpitations Respiratory: Complains shortness of breath denies coughing wheezing Abdomen: Complains of some lower abdominal discomfort denies nausea vomit diarrhea : Denies urinary symptoms Neurological: Denies numbness, wheeze, tingling Musculoskeletal: Denies back pain Skin: Denies rashes or lesions EXAM Physical Exam Narrative Exam Narrative: General: Patient lying in bed rest complete not appear to be in acute distress Head: Atraumatic, normocephalic Eyes: PERRL bilaterally, EOMI bilateral, no conjunctival injection noted Neck: Soft, supple, trachea midline Cardiovascular: Patient tachycardic with a regular rhythm no murmurs gallops rubs noted Respiratory: Clear to auscultation bilaterally Abdomen: Soft, nondistended, nontender to palpation no rebound or guarding on exam Rectal: Rectal exam performed and minimal amount of stool noted however some brown stool was noted no yamileth dark tarry stool Extremities: Patient has bilateral lower extremity swelling but states that she chronically has lower extremity swelling and this is not worse than her baseline Neurological: Denies numbness, exam tingling Skin: Denies rashes or lesions Const Vital Signs: 12/04/24 09:41 12/04/24 10:36 12/04/24 11:00 Temperature 98.2 F Temperature Source Oral Pulse Rate 123 H 97 Respiratory Rate 20 H 15 Respiratory Effort Short of Breath Blood Pressure 160/99 H 151/71 H Blood Pressure Mean 119 97 Blood Pressure Source Blood Pressure Position Blood Pressure Location Pulse Ox 100 96 Oxygen Delivery Method Room Air Room Air 12/04/24 11:46 12/04/24 12:00 12/04/24 12:01 Temperature 97.6 F L 97.9 F Temperature Source Oral Oral Pulse Rate 87 87 87 Respiratory Rate 15 17 18 Respiratory Effort Blood Pressure 138/65 H 142/66 H 142/66 H Blood Pressure Mean 89 91 91 Blood Pressure Source Monitor Monitor Blood Pressure Position Semi-Fowlers Semi-Fowlers Blood Pressure Location Left Arm Left Arm Pulse Ox 97 98 97 Oxygen Delivery Method Room Air Room Air Room Air 12/04/24 12:46 Temperature 98.1 F Temperature Source Oral Pulse Rate 85 Respiratory Rate 25 H Respiratory Effort Blood Pressure 128/49 H Blood Pressure Mean 75 Blood Pressure Source Monitor Blood Pressure Position Semi-Fowlers Blood Pressure Location Left Arm Pulse Ox 98 Oxygen Delivery Method MDM MDM MDM Narrative Medical decision making narrative: Patient is a 69-year-old female who presented to the emergency department the chief complaint of low hemoglobin as well as chest pain and shortness of breath. On the differential diagnose includes but not limited to anemia, ACS, lower GI bleed. Once workup is obtained and reviewed she will be reevaluated. Patient CBC was reviewed and white blood count was noted be 2.8 hemoglobin repeated was 5.7 she was typed and screened for 3 units of blood, patient does have a microcytic anemia with MCV of 68. Patient is thrombocytopenic with a platelet count of 119 she does have a history of cirrhosis and PARRY. Patient's INR 1.5, PT of 18.7. Patient sodium was 139, potassium 3.4, creatinine 0.57. Patient's BUN noted to be 10. Patient's AST and ALT were 39 and 16 respectively. Patient troponin was 8, CRP less than 3. Patient lipase was noted to be 33. Patient CTA of the abdomen pelvis showed ascites finding suggestive of cirrhosis with evidence of splenomegaly sigmoid diverticulosis noted. Patient was fecal occult positive she was given 40 mg IV Protonix I reached out to Dr. 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 Patient's EKG reviewed showed sinus rhythm with a rate of 97 bpm. Discussed case with hospitalist Dr. Aguirre who accept patient for admission. Patient notified as well as significant other bedside all question concerns answered Lab Data Labs: Laboratory Results - last 24 hr 12/04/24 10:19 WBC 2.8 L RBC 3.00 L Hgb 5.7 L* Hct 20.4 L MCV 68.0 L MCH 19.0 L MCHC 27.9 L RDW Std Deviation 44.7 H RDW Coeff of Rafa 18.4 H Plt Count 119 L MPV 10.4 Immature Gran % (Auto) 0.700 Neut % (Auto) 46.9 L Lymph % (Auto) 32.0 [place] % (Auto) 14.7 H Eos % (Auto) 4.3 Baso % (Auto) 1.4 H Absolute Neuts (auto) 1.3 L Absolute Lymphs (auto) 0.89 Nucleated RBC % 0 Diff Path Review January foll Sodium 139 Potassium 3.4 Chloride 108 Carbon Dioxide 20.0 L Anion Gap 11 BUN 10 Creatinine 0.57 L Estim Creat Clear Calc 81.29 Est GFR (MDRD) Non-Af 99 BUN/Creatinine Ratio 17.8 Glucose 111 H Calcium 8.5 Total Bilirubin 0.72 AST 39 H ALT 16 Alkaline Phosphatase 142 H Troponin T High Sens 8 Total Protein 6.2 Albumin 3.4 Globulin 2.8 Albumin/Globulin Ratio 1.2 Lipase 33 Blood Type O POSITIVE Antibody Screen NEGATIVE Crossmatch See Detail Radiography Diagnostic Testing: Clinical Impression(s) from Imaging Studies Abdomen/Pelvis CTA 12/04/24 10:08 IMPRESSION: Ascites. Findings suggestive of cirrhosis of the liver with evidence of splenomegaly. Sigmoid diverticulosis. Reading Location: [place] [address] Discharge Plan Triage Chief Complaint: Chest Pain Other Complaint: Abn Labs ED Provider: Naga Mcleod Dx/Rx/DC Orders Clinical Impression: Coronary artery disease, Anemia, GI (gastrointestinal bleed), Microcytic anemia Prescriptions: No Action nitroglycerin 0.4 mg tablet, sublingual 0.4 mg sublingual Q5-15M PRN (Reason: chest pain) Rx Instructions: do not exceed 3 doses per episode clopidogrel [Plavix] 75 mg tablet 75 mg PO DAILY pantoprazole 20 mg tablet,delayed release (DR/EC) 20 mg PO QHS Patient Comments: PT UNSURE IF SHE TAKES 20MG OR 40MG. SHE HAD 40MG RECENTLY FILLED, BUT SAID SHE DID NOT PICK ANYTHING UP. simvastatin 10 mg tablet 10 mg PO QHS methocarbamol 750 mg tablet 1,500 mg PO QHS cholecalciferol (vitamin D3) 325 mcg (13,000 unit) capsule 50,000 unit PO QODAY Patient Comments: PT UNSURE OF STRENGTH Primary Care Provider: Valdo Ritchie Referrals: Valdo Ritchie NP-C [Primary Care Provider] - Print Language: Honduran Disposition Disposition: Acute Care Hospital [facility] What to do if you have Problems For any increased pain, shortness of breath, bleeding, nausea or vomiting, chestpain, or any unexpected problems, contact your Primary Care Provider. Call [facility] ([phone]) or report to the closest Emergency Room. Call 911 if necessary. 12/04/24 1304 <Electronically signed by Naga Mcleod DO> Cosigner Signature (if applicable): CC: PATIENT RELATIONS SPECIALIST-Guille Ritchie ~ Signed [facility] Work Phone: 1(329) 657-884504-02-2025 History and physical note [facility] Medical Records Department [address] [place] [address] H&P Exam - Hospitalist 12/04/24 1313 MR#: [id number] Acct: [id number] Name: DIAN JANE Rep #:[id number] : 1955 69 From: Hamzah Aguirre MD PCP: JU Mishra Status:REG ER Location: ED HPI - General General Date of Admission: 12/04/24 Date of Service: 12/04/24 Chief Complaint: Abnormal labs HPI Narrative DIAN JANE, is a 69 F with past medical history signal for nonalcoholic fatty liver disease,coronary artery disease with previous PCI on antiplatelet therapy, history of anemia for which patient underwent extensive studies including EGD, capsule endoscopy as well as colonoscopy at [facility] in [facility]. Patient was diagnosed with AVMs.. Patient apparently did move to [place] and has been followed by Dr. Zaman with GI. On a routine follow-up patient was found to have hemoglobin of 5.6 was sent to the ED. Patient did complain of progressive shortness of breath with activity as well as chest tightness. Stool guaiac obtained in the emergency department came back positive. An order was given for patient to be transfused with 2 unit PRBC fromthe emergency department and subsequently admitted to monitored bed with consultation placed to GI [facility] Medical History Bilateral carotid artery disease SEVERINO (obstructive sleep apnea) GERD (gastroesophageal reflux disease) Essential (primary) hypertension Edema Cirrhosis Diabetes type 2 Coronary artery disease Home Medications ?Medication ?Instructions ?Recorded ?Last Taken ?Type cholecalciferol (vitamin D3) 325 50,000 unit PO QODAY 12/04/24 12/03/24 History mcg (13,000 unit) capsule clopidogrel 75 mg tablet (Plavix) 75 mg PO DAILY 12/0412/04/24 History methocarbamol 750 mg tablet 1,500 mg PO QHS 12/04/24 0 12/03/24 History nitroglycerin 0.4 mg sublingual 0.4 mg sublingual Q5-1 5M PRN chest 12/04/24 Unknown History tablet pain pantoprazole 20 mg tablet,delayed 20 mg PO QHS 5 12/03/24 History release simvastatin 10 mg tablet 10 mg PO QHS 12/04/24 History Allergy/AdvReac Type Severity Reaction Status Date / Time Influenza Virus Vaccines Allergy Severe Anaphylaxis Verified 10/06/24 12:03 (flu vaccine) hydrocodone Allergy Angioedema Verified 12/04/24 09:43 Corticosteroids AdvReac Intermediate Other Verified 10/06/24 12:03 (Glucocorticoids) Surgical History History of percutaneous angioplasty (~10/2014) Hx of section Hx of total knee replacement History of total hysterectomy with bilateral salpingo-oophorectomy (BSO) Hx of appendectomy Social History Smoking Status: Never smoker ROS ROS Narrative GENERAL: denies fever, chills, night sweats, weight loss, anorexia HEENT: denies headache, sinus congestion, or drainage, dysphagia RESPIRATORY: shortness of breath, dyspnea on exertion CARDIAC: denies chest pain, palpitations, orthopnea, PND GASTROINTESTINAL: denies abdominal pain, nausea, vomiting, melena, GENITOURINARY: denies dysuria, urgency, frequency, heamaturia EXTREMITY: denies swelling MUSCULOSKELETAL: denies current joint pain or tenderness NEUROLOGIC: denies focal numbness, weakness, tingling HEMATOLOGIC: denies easy bruising and/or hemorrhage INTEGUMENT: denies rashes PSYCHIATRIC: denies suicidal or homicidal ideation Vital Signs Vital Signs Vital Signs: 12/04/24 09:41 12/04/24 10:36 12/04/24 11:00 Temperature 98.2 F Temperature Source Oral Pulse Rate 123 H 97 Respiratory Rate 20 H 15 Respiratory Effort Short of Breath Blood Pressure 160/99 H 151/71 H Blood Pressure Mean 119 97 Blood Pressure Source Blood Pressure Position Blood Pressure Location Pulse Ox 100 96 Oxygen Delivery Method Room Air Room Air 12/04/24 11:46 12/04/24 12:00 12/04/24 12:01 Temperature 97.6 F L 97.9 F Temperature Source Oral Oral Pulse Rate 87 87 87 Respiratory Rate 15 17 18 Respiratory Effort Blood Pressure 138/65 H 142/66 H 142/66 H Blood Pressure Mean 89 91 91 Blood Pressure Source Monitor Monitor Blood Pressure Position Semi-Fowlers Semi-Fowlers Blood Pressure Location Left Arm Left Arm Pulse Ox 97 98 97 Oxygen Delivery Method Room Air Room Air Room Air 12/04/24 12:46 12/04/24 13:00 Temperature 98.1 F Temperature Source Oral Pulse Rate 85 87 Respiratory Rate 25 H 20 H Respiratory Effort Blood Pressure 128/49 H 128/49 H Blood Pressure Mean 75 75 Blood Pressure Source Monitor Blood Pressure Position Semi-Fowlers Blood Pressure Location Left Arm Pulse Ox 98 100 Oxygen Delivery Method Room Air Weight Weight: 116.12 kg Body Mass Index (BMI) 46.7 Physical Exam Narrative GENERAL: cooperative HEENT: Atraumatic; normocephalic EYES; Anicteric, Normal Conjunctiva NECK; supple, normal thyroid, RESPIRATORY: Diminished to auscultation CARDIOVASCULAR: Regular S1 S2, GI: soft, normoactive bowel sounds, : No Renal angle tenderness; EXTREMITIES: No edema, no clubbing, MUSCULOSKELETAL: no muscle wasting NEURO: Awake; no lateralizing signs. SKIN: No Rash PSYCH; Flat affect Results Lab / Micro Data 12/04/24 10:19 12/04/24 10:19 Labs: Laboratory Results - last 24 hr 12/04/24 10:19: WBC 2.8 L, RBC 3.00 L, Hgb 5.7 L*, Hct 20.4 L, MCV 68.0 L, MCH 19.0 L, MCHC 27.9 L,RDW Std Deviation 44.7 H, RDW Coeff of Rafa 18.4 H, Plt Count 119 L, MPV 10.4, Immature Gran % (Auto) 0.700, Neut % (Auto) 46.9 L, Lymph% (Auto) 32.0, [place] % (Auto) 14.7 H, Eos % (Auto) 4.3, Baso % (Auto) 1.4 H, Absolute Neuts (auto) 1.3 L, Absolute Lymphs (auto) 0.89, Nucleated RBC % 0, DiffPath Review January foll, Sodium 139, Potassium 3.4, Chloride 108, Carbon Dioxide 20.0 L, Anion Gap 11, BUN 10,Creatinine 0.57 L, Estim Creat Clear Calc 81.29, Est GFR (MDRD) Non-Af 99, BUN/Creatinine Ratio 17.8, Glucose 111 H, Calcium 8.5,Total Bilirubin 0.72, AST 39 H, ALT 16, Alkaline Phosphatase 142 H, Troponin T High Sens 8, Total Protein 6.2, Albumin 3.4, Globulin 2.8, Albumin/Globulin Ratio 1.2, Lipase 33, Blood Type O POSITIVE, Antibody Screen NEGATIVE, Crossmatch See Detail Micro: Microbiology 12/04/24 10:19 Stool Stool Occult Blood (ZEENAT) - Final Occult Blood Positive Imaging Radiology Impression Abdomen/Pelvis CTA 12/04/24 10:08 IMPRESSION: Ascites. Findings suggestive of cirrhosis of the liver with evidence of splenomegaly. Sigmoid diverticulosis. Reading Location: [facility]-1 Assessment & Plan Assessment/Plan (1) Microcytic anemia: PLAN: Plan Patient is a 69-year-old female presenting with severe anemia. Patient was alsofound to have markedmicrocytosis with hemoglobin 5.7 and MCV of 68. Stool guaiac came back positive admitted to monitored bed for subsequent management 1. Severe anemia ? Secondary to suspected chronic blood loss anemia per patient she has had extensive workup at [facility] in [place]. Requested for old records. Patient stool guaiac came back positive subsequently started on Protonix. Patient is on clopidogrel for CAD with previous PCI held. An order was given for patient to be transfused with 2 unit PRBC subsequent monitoring with serial H&H ordered 2. Coronary artery disease ? With previous PCI ; Patient is on clopidogrel as well as simvastatin. Clopidogrel held given patient anemia 3. GERD ? Patient is on PPI 4. Diabetes mellitus type II -patient's oral hypoglycemics held. Placed on long acting insulin, Accu-Cheks a.c. and at bedtime and covered with sliding scale insulin 5. Nonalcoholic fatty liver disease ? Patient currently being followed by Dr. Zaman with GI as outpatient 6. Class III obesity with BMI of 46.8 ? Complicating care weight loss advised 7. Dyslipidemia ?Patient is on statin therapy, continued at home dose 8. DVT prophylaxis ? Chemoprophylaxis contraindicated given patient severe anemia Time spent in the patient's overall evaluation,decision-making process, review of diagnostic data, adjustment of management, discussion with other providers, nursing nursing and ancillary staff involved in patient's care documentation, 75 Minutes Advance planning; did discuss with the patient and family regarding advanced directives as well as CODE STATUS. Did explain the various scenarios involved (FULL CODE, DNR CCA, DNR CCA with no intubation, and DNR CC and what each meant) patient elected to remain full code with CPR intubation if needed. Order was placed. Time spent on discussion 16 minutes. Charges/Coding Multi Select Codes Visit Charges Visit Charges: 27094 Init Hosp Hospitalists' Procedures Procedures: 94910 Advncd Care Plan 30 Min 12/04/24 1359 Cosigner Signature (if applicable): CC: PATIENT RELATIONS SPECIALIST-C Valdo Ritchie; Dr. Hamzah Aguirre MD~ Signed [facility]04-02-2025 Discharge summary [facility] Medical Records Department [address] [place] [address] Emergency Department Summary 12/04/24 MR#: [id number] Acct: [id number] Name: DIAN JANE Rep #:[id number] : 1955 69 From: Naga Mcleod DO PCP: JU Mishra Status:REG ER Location: ED HPI History of Present Illness Chief Complaint: Chest Pain Narrative Narrative: Patient is a 69-year-old female with a past medical history of CAD status post 2stents on Plavix, type 2 diabetes, PARRY with cirrhosis, hypertension, SEVERINO, GERD who presented to the emergency department from her gastroenterology's office with a chief complaint of low hemoglobin. Patient states that [place] in [place] where she was originally from she had multiple scopesdone as well as a pill swallow study and they discovered that she had some areas of bleeding in herlower intestines she states that she cannot exactly remember the name of this however she states that she has never had to have blood transfusions in the past. They state that they placed her on iron supplementation and her blood count started to improve with this. Patient states that she has been having some chest tightness and shortness of breath recently as well. Patient states that when she was walking here into the emergency department she felt like her symptoms were worsening. PFSH PFS Medical History Bilateral carotid artery disease SEVERINO (obstructive sleep apnea) GERD (gastroesophageal reflux disease) Essential (primary) hypertension Edema Cirrhosis Diabetes type 2 Coronary artery disease Home Medications ?Medication ?Instructions ?Recorded ?Last Taken ?Type cholecalciferol (vitamin D3) 325 50,000 unit PO QODAY 12/04/24 12/03/24 History mcg (13,000 unit) capsule clopidogrel 75 mg tablet (Plavix) 75 mg PO DAILY 12/0412/04/24 History methocarbamol 750 mg tablet 1,500 mg PO QHS 12/04/24 0 12/03/24 History nitroglycerin 0.4 mg sublingual 0.4 mg sublingual Q5-1 5M PRN chest 12/04/24 Unknown History tablet pain pantoprazole 20 mg tablet,delayed 20 mg PO QHS 5 12/03/24 History release simvastatin 10 mg tablet 10 mg PO QHS 12/04/24 History Allergy/AdvReac Type Severity Reaction Status Date / Time Influenza Virus Vaccines Allergy Severe Anaphylaxis Verified 10/06/24 12:03 (flu vaccine) hydrocodone Allergy Angioedema Verified 12/04/24 09:43 Corticosteroids AdvReac Intermediate Other Verified 10/06/24 12:03 (Glucocorticoids) Surgical History History of percutaneous angioplasty (~10/2014) Hx of section Hx of total knee replacement History of total hysterectomy with bilateral salpingo-oophorectomy (BSO) Hx of appendectomy Social History Smoking Status: Never smoker ROS ROS ED ROS Narrative Constitutional: Denies fevers, chills, headaches, lightness, dizziness Eyes: Denies change in vision double vision blurry vision Cardiovascular: Complains of chest pain as noted above denies palpitations Respiratory: Complains shortness of breath denies coughing wheezing Abdomen: Complains of some lower abdominal discomfort denies nausea vomit diarrhea : Denies urinary symptoms Neurological: Denies numbness, wheeze, tingling Musculoskeletal: Denies back pain Skin: Denies rashes or lesions EXAM Physical Exam Narrative Exam Narrative: General: Patient lying in bed rest complete not appear to be in acute distress Head: Atraumatic, normocephalic Eyes: PERRL bilaterally, EOMI bilateral, no conjunctival injection noted Neck: Soft, supple, trachea midline Cardiovascular: Patient tachycardic with a regular rhythm no murmurs gallops rubs noted Respiratory: Clear to auscultation bilaterally Abdomen: Soft, nondistended, nontender to palpation no rebound or guarding on exam Rectal: Rectal exam performed and minimal amount of stool noted however some brown stool was noted no yamileth dark tarry stool Extremities: Patient has bilateral lower extremity swelling but states that she chronically has lower extremity swelling and this is not worse than her baseline Neurological: Denies numbness, exam tingling Skin: Denies rashes or lesions Const Vital Signs: 12/04/24 09:41 12/04/24 10:36 12/04/24 11:00 Temperature 98.2 F Temperature Source Oral Pulse Rate 123 H 97 Respiratory Rate 20 H 15 Respiratory Effort Short of Breath Blood Pressure 160/99 H 151/71 H Blood Pressure Mean 119 97 Blood Pressure Source Blood Pressure Position Blood Pressure Location Pulse Ox 100 96 Oxygen Delivery Method Room Air Room Air 12/04/24 11:46 12/04/24 12:00 12/04/24 12:01 Temperature 97.6 F L 97.9 F Temperature Source Oral Oral Pulse Rate 87 87 87 Respiratory Rate 15 17 18 Respiratory Effort Blood Pressure 138/65 H 142/66 H 142/66 H Blood Pressure Mean 89 91 91 Blood Pressure Source Monitor Monitor Blood Pressure Position Semi-Fowlers Semi-Fowlers Blood Pressure Location Left Arm Left Arm Pulse Ox 97 98 97 Oxygen Delivery Method Room Air Room Air Room Air 12/04/24 12:46 Temperature 98.1 F Temperature Source Oral Pulse Rate 85 Respiratory Rate 25 H Respiratory Effort Blood Pressure 128/49 H Blood Pressure Mean 75 Blood Pressure Source Monitor Blood Pressure Position Semi-Fowlers Blood Pressure Location Left Arm Pulse Ox 98 Oxygen Delivery Method MDM MDM MDM Narrative Medical decision making narrative: Patient is a 69-year-old female who presented to the emergency department the chief complaint of low hemoglobin as well as chest pain and shortness of breath. On the differential diagnose includes but not limited to anemia, ACS, lower GI bleed. Once workup is obtained and reviewed she will be reevaluated. Patient CBC was reviewed and white blood count was noted be 2.8 hemoglobin repeated was 5.7 she wastyped and screened for 3 units of blood, patient does have a microcytic anemia with MCV of 68. Patient is thrombocytopenic with a platelet count of 119 she does have a history of cirrhosis and PARRY. Patient's INR 1.5, PT of 18.7. Patient sodium was 139, potassium 3.4, creatinine 0.57. Patient's BUNnoted to be 10. Patient's AST and ALT were 39 and 16 respectively. Patient troponin was 8, CRP lessthan 3. Patient lipase was noted to be 33. Patient CTA of the abdomen pelvis showed ascites findingsuggestive of cirrhosis with evidence of splenomegaly sigmoid diverticulosis noted. Patient was fecal occult positive she was given 40 mg IV Protonix I reached out to Dr. 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 Patient's EKG reviewed showed sinus rhythm with a rate of 97 bpm. Discussed case with hospitalist Dr. Aguirre who accept patient for admission. Patient notified as well as significant other bedside all question concerns answered Lab Data Labs: Laboratory Results - last 24 hr 12/04/24 10:19 WBC 2.8 L RBC 3.00 L Hgb 5.7 L* Hct 20.4 L MCV 68.0 L MCH 19.0 L MCHC 27.9 L RDW Std Deviation 44.7 H RDW Coeff of Rafa 18.4 H Plt Count 119 L MPV 10.4 Immature Gran % (Auto) 0.700 Neut % (Auto) 46.9 L Lymph % (Auto) 32.0 [place] % (Auto) 14.7 H Eos % (Auto) 4.3 Baso % (Auto) 1.4 H Absolute Neuts (auto) 1.3 L Absolute Lymphs (auto) 0.89 Nucleated RBC % 0 [address] Review January foll Sodium 139 Potassium 3.4 Chloride 108 Carbon Dioxide 20.0 L Anion Gap 11 BUN 10 Creatinine 0.57 L Estim Creat Clear Calc 81.29 Est GFR (MDRD) Non-Af 99 BUN/Creatinine Ratio 17.8 Glucose 111 H Calcium 8.5 Total Bilirubin 0.72 AST 39 H ALT 16 Alkaline Phosphatase 142 H Troponin T High Sens 8 Total Protein 6.2 Albumin 3.4 Globulin 2.8 Albumin/Globulin Ratio 1.2 Lipase 33 Blood Type O POSITIVE Antibody Screen NEGATIVE Crossmatch See Detail Radiography Diagnostic Testing: Clinical Impression(s) from Imaging Studies Abdomen/Pelvis CTA 12/04/24 10:08 IMPRESSION: Ascites. Findings suggestive of cirrhosis of the liver with evidence of splenomegaly. Sigmoid diverticulosis. Reading Location: [place] [address] Discharge Plan Triage Chief Complaint: Chest Pain Other Complaint: Abn Labs ED Provider: Naga Mcleod Dx/Rx/DC Orders Clinical Impression: Coronary artery disease, Anemia, GI (gastrointestinal bleed), Microcytic anemia Prescriptions: No Action nitroglycerin 0.4 mg tablet, sublingual 0.4 mg sublingual Q5-15M PRN (Reason: chest pain) Rx Instructions: do not exceed 3 doses per episode clopidogrel [Plavix] 75 mg tablet 75 mg PO DAILY pantoprazole 20 mg tablet,delayed release (DR/EC) 20 mg PO QHS Patient Comments: PT UNSURE IF SHE TAKES 20MG OR 40MG. SHE HAD 40MG RECENTLY FILLED, BUT SAID SHE DID NOT PICK ANYTHING UP. simvastatin 10 mg tablet 10 mg PO QHS methocarbamol 750 mg tablet 1,500 mg PO QHS cholecalciferol (vitamin D3) 325 mcg (13,000 unit) capsule 50,000 unit PO QODAY Patient Comments: PT UNSURE OF STRENGTH Primary Care Provider: Valdo Ritchie Referrals: Valdo Ritchie, PATIENT RELATIONS SPECIALIST-C [Primary Care Provider] - Print Language: Honduran Disposition Disposition: Acute Care Hospital [facility] What to do if you have Problems For any increased pain, shortness of breath, bleeding, nausea or vomiting, chestpain, or any unexpected problems, contact your Primary Care Provider. Call [facility] ([phone]) or report tothe closest Emergency Room. Call 911 if necessary. 12/04/24 1304 Cosigner Signature (if applicable): CC: JU Ritchie ~ Signed [facility]04-02-2025 Radiology Diagnostic study note [facility] Imaging Services [address] [place] [address] CTA Abd/Pelvis W/WO Contrast MR#: [id number] Acct: [id number] Name: IDAN JANE Rep #: [id number] : [id number] F 69 From: Mauricio Pace MD PCP: JU Mishra Status: PRE ER Study:CTA Abd/Pelvis W/WO Contrast Date of Ex am: 12/04/24 Exam# [id number] Ordering Dr: Jean Mcleod DO PROCEDURE: CTA ABD/PELVIS W/WO CONTRAST 12/04/2024 REASON FOR EXAM: ANEMIA HX OF LOWER GI BLEEDING Chest tightness. TECHNIQUE: CTA imaging of the abdomen and pelvis with intravenous contrast. Coronal and Sagittal reconstruction series were provided. 3D, 3D post processing, 3D reconstructions, Maximum intensity projection (MIPs) Volume rendering and Shaded surface rendering was provided. CONTRAST: Isovue 370 VOLUME: 100mL Gauge IV One or more dose reduction techniques were used (e.g., Automated exposure control, adjustment of the mA and/or kV according to patient size, use of iterative reconstruction technique). RADIATION DOSE SUMMARY: CTDlvol: 30 mGy DLP: 1175.52 mGycm COMPARISON: None FINDINGS: There is evidence of ascites. Nodular contour of the liver suggestive of cirrhosis. Splenomegaly. Gallbladder wall thickening and contraction most likely secondary to the ascites. Sigmoid diverticulosis with no radiographic evidence of diverticulitis. Status post hysterectomy and appendectomy. Aorta: Mild mixed calcified and soft plaque identified. No abdominal aortic aneurysm. Iliac Arteries: Scattered atherosclerotic plaque. No aneurysm or significant stenosis. Celiac: Unremarkable SMA: Unremarkable KAIN : Not visualized Right Renal: Unremarkable Left Renal: Unremarkable Other Findings: The lung bases are unremarkable. CT/CTA Abd/Pelvis W/WO Contrast IMPRESSION: Ascites. Findings suggestive of cirrhosis of the liver with evidence of splenomegaly. Sigmoid diverticulosis. Reading Location: [facility]- CC: JU Ritchie; Dr. Naga Mcleod, DO ~ Manager Corporate Communications: Signed [facility]04-02-2025 Evaluation note* Diagnosis Onset Date Resolution Status Admit Date Cirrhosis acute December 04 7:26am GERD (gastroesophageal reflu x disease) acute December 04, 2024 7:26am Anemia acute December 04 1:02pm Coronary artery disease acute A pril 2024 1:02pm GI (gastrointestinal bleed) acute December 04, 2024 1:02pm Microcytic anemia acute December 042024 1:02pm [facility] Work Phone: 1(297) 603-343304-02-2025 Evaluation note* Diagnosis Onset Date Resolution Status Admit Date Cirrhosis acute December 04 7:26am GERD (gastroesophageal reflu x disease) acute December 04, 2024 7:26am Coronary artery disease acute A l 2024 1:02pm Microcytic anemia acute December 042024 1:02pm Anemia resolved December 04 1:02pm GI (gastrointestinal bleed) resolved December 04, 2024 1:02pm Cirrhosis acute December 11 10:14am Anemia resolved December 11 10:14am GI (gastrointestinal bleed) resolved December 11, 2024 10:14am [facility] Work Phone: 1(272) 688-106304-02-2025 Evaluation note* Diagnosis Onset Date Resolution Status Admit Date Cirrhosis acute December 04 7:26am GERD (gastroesophageal reflu x disease) acute December 04, 2024 7:26am Coronary artery disease acute A pri2024 1:02pm Microcytic anemia acute December 042024 1:02pm Anemia resolved December 04 1:02pm GI (gastrointestinal bleed) resolved December 04, 2024 1:02pm Cirrhosis acute December 11 10:14am Anemia resolved December 11 10:14am GI (gastrointestinal bleed) resolved December 11, 2024 10:14am Aortic stenosis acute January 08, 2025 8:42am Coronary artery disease acute M 2024 8:42am Esophageal varices acute January 8:42am Essential (primary) hypertension acute January 08, 2025 8: 42am [facility] Work Phone: 1(104) 848-257502-02-2025 NoteHNO ID: [id number] Author: ANITHA MAGANA APRN.AMBREEN Service: ? Author Type: Nurse Practitioner Type: Progress Notes Filed: 10/06/2024 12:08 Note Text: This note was created using Interview Rocketriter. Subjective Dian Jane is a 69 year old female. 69 year old female with PMH hyperlipidemia and GERD presents for eye complaints Acute onset last night +left eye +redness +pain Sharp pain behind eye +photosensitive +headache Denies URI sx Denies loss of vision or double vision Denies skin rash or lesions Wears corrective lens Has seen eye doctor approximately 6 months ago The history is provided by the patient. No speech language pathologist travel was used. Eye Problem This is a new problem. The current episode started yesterday. The problem occurs constantly. The problem has been unchanged. Associated symptoms include headaches. Pertinent negatives include no abdominal pain, anorexia, arthralgias, change in bowel habit, chest pain, chills, congestion, coughing, diaphoresis, fatigue, fever, joint swelling, myalgias, nausea, neck pain, numbness, rash, sore throat, swollen glands, urinary symptoms, vertigo, visual change, vomiting or weakness. Nothing aggravates the symptoms. She has tried nothing for the symptoms. The treatment provided no relief. No past medical history on file. No past surgical history on file. ALLERGIES Cortisone and Influenza Virus Vaccines MEDICATIONS clopidogrel (PLAVIX) [address] (PROTONIX) 40 mg tablet simvastatin (ZOCOR) 20 mg tablet NITROFURANTOIN ORAL Take by mouth. No family history on file. Social History Tobacco Use Smoking status: Never Passive exposure: Never Smokeless tobacco: Never Review of Systems Constitutional: Negative for chills, diaphoresis, fatigue and fever. HENT: Negative for congestion and sore throat. Respiratory: Negative for cough. Cardiovascular: Negative for chest pain. Gastrointestinal: Negative for abdominal pain, anorexia, change in bowel habit, nausea and vomiting. Musculoskeletal: Negative for arthralgias, joint swelling, myalgias and neck pain. Skin: Negative for rash. Neurological: Positive for headaches. Negative for vertigo, weakness and numbness. Objective BP 122/72 Pulse 95 Temp 37 ?C (98.6 ?F) Resp 20 Wt 118.7 kg (261 lb 11 oz) SpO2 98% Physical Exam Constitutional: Appearance: Normal appearance. She is obese. HENT: Head: Normocephalic and atraumatic. Eyes: Comments: OS with findings consistent with subconjunctival hemorrhage +photosensitivity +sluggish reaction on pupil Cardiovascular: Rate and Rhythm: Normal rate and regular rhythm. Pulmonary: Effort: Pulmonary effort is normal. No respiratory distress. Breath sounds: Normal breath sounds. No stridor. No wheezing or rhonchi. Assessment and Plan ASSESSMENT/PLAN: 1. Acute left eye pain - ICD9: 379.91, ICD10: H57.12 (primary diagnosis) Occurred yesterday NO trauma or injury Findings are consistent with subconjunctival hemorrhage, However She is complaining of pain She is complaining of photosensitivity and sluggish pupil Patient would benefit from more comprehensive exam including tonometry and slit lamp examination and possible advanced imaging given pain and headache 2. Subconjunctival hemorrhage of left eye - ICD9: 372.72, ICD10: H11.32 Initial clinical impression, However, she has red flags she is displaying and limitations of express care referred to ED Anitha Magana APRN.[facility]02-02-2025 History of Present illness Narrative* Anitha Magana APRN.TELEPHONE CLERK TELEGRAPH OFFICE - 10/06/2024 11:39 AM EST This note was created using NoteWriter. Subjective Dian Jane is a 69 year old female. 69 year old female with PMH hyperlipidemia and GERD presents for eye complaints Acute onset last night +left eye +redness +pain Sharp pain behind eye +photosensitive +headache Denies URI sx Denies loss of vision or double vision Denies skin rash or lesions Wears corrective lens Has seen eye doctor approximately 6 months ago The history is provided by the patient. No speech language pathologist travel was used. Eye Problem This is a new problem. The current episode started yesterday. The problem occurs constantly. The problem has been unchanged. Associated symptoms include headaches. Pertinent negatives include no abdominal pain, anorexia, arthralgias, change in bowel habit, chest pain, chills, congestion, coughing, diaphoresis, fatigue, fever, joint swelling, myalgias, nausea, neck pain, numbness, rash, sore throat, swollen glands, urinary symptoms, vertigo, visual change, vomiting or weakness. Nothing aggravates the symptoms. She has tried nothing for the symptoms. The treatment provided no relief. No past medical history on file. No past surgical history on file. ALLERGIES Cortisone and Influenza Virus Vaccines MEDICATIONS clopidogrel (PLAVIX) [address] (PROTONIX) 40 mg tablet simvastatin (ZOCOR) 20 mg tablet NITROFURANTOIN ORAL Take by mouth. No family history on file. Social History Tobacco Use Smoking status: Never Passive exposure: Never Smokeless tobacco: Never Review of Systems Constitutional: Negative for chills, diaphoresis, fatigue and fever. HENT: Negative for congestion and sore throat. Respiratory: Negative for cough. Cardiovascular: Negative for chest pain. Gastrointestinal: Negative for abdominal pain, anorexia, change in bowel habit, nausea and vomiting. Musculoskeletal: Negative for arthralgias, joint swelling, myalgias and neck pain. Skin: Negative for rash. Neurological: Positive for headaches. Negative for vertigo, weakness and numbness. Objective BP 122/72 Pulse 95 Temp 37 C (98.6 F) Resp 20 Wt 118.7 kg (261 lb 11 oz) SpO2 98% Physical Exam Constitutional: Appearance: Normal appearance. She is obese. HENT: Head: Normocephalic and atraumatic. Eyes: Comments: OS with findings consistent with subconjunctival hemorrhage +photosensitivity +sluggish reaction on pupil Cardiovascular: Rate and Rhythm: Normal rate and regular rhythm. Pulmonary: Effort: Pulmonary effort is normal. No respiratory distress. Breath sounds: Normal breath sounds. No stridor. No wheezing or rhonchi. Assessment and Plan ASSESSMENT/PLAN: 1. Acute left eye pain - ICD9: 379.91, ICD10: H57.12 (primary diagnosis) Occurred yesterday NO trauma or injury Findings are consistent with subconjunctival hemorrhage, However She is complaining of pain She is complaining of photosensitivity and sluggish pupil Patient would benefit from more comprehensive exam including tonometry and slit lamp examination and possible advanced imaging given pain and headache 2. Subconjunctival hemorrhage of left eye - ICD9: 372.72, ICD10: H11.32 Initial clinical impression, However, she has red flags she is displaying and limitations of express care referred to ED Anitha Magana APRN.TELEPHONE CLERK TELEGRAPH OFFICE documented in this encounterMount Vernon ClinicDischar summary Author Hamzah Aguirre [facility] Note Date/Time December 06, 2024 9:34 am [facility] Medical Records Department [address] [place] [address] Discharge Summary 12/06/24 0929 MR#: [id number] Acct: [id number] Name: DIAN JANE Rep #[id number] From: Hamzah Aguirre MD PCP: JU Mishra Status:ADM IN Location: [place] [address] Providers Date of Admission: 12/04/24 Date of Discharge: 12/06/24 Primary Care Physician: JU Mishra Consultations 12/04/24 17:06 Consult: Gastroenterology Routine Consulting Provider: [facility] Reason for Consult: GI bleed EMERGENT Consult: No MD Notified: Yes Date Notified: 12/04/24 Time Notified: 13:11 Method of Notification: ED Physician Initiated Reason For Visit: ANEMIA Diagnosis Discharge Diagnosis (1) Microcytic anemia: Status: Acute Code(s): D50.9 - Iron deficiency anemia, unspecified Plan Patient is a 69-year-old female presenting with severe anemia. Patient was alsofound to have marked microcytosis with hemoglobin 5.7 and MCV of 68. Stool guaiac came back positive admitted to monitored bed for subsequent management 1. Severe anemia ? Secondary to suspected chronic blood loss anemia per patient she has had extensive workup at this [facility] in [place]. Requested for old records. Patient stool guaiac came back positive subsequently started on Protonix. Patient is on clopidogrel for CAD with previous PCI held. An order was given for patient to be transfused with 2 unit PRBC subsequent monitoring with serial H&H ordered ? 12/05/2024; patient was transfused with 2 unit PRBC hemoglobin up to 8.0 patientscheduled to undergo endoscopic evaluation by GI. Patient underwent EGD on 12/05/[address] Arnett findings and recommendations as below Impressions : - Grade II esophageal varices. - Portal hypertensive gastropathy. - Four bleeding angiodysplastic lesions in the duodenum. Treated with a heater probe. - Two angiodysplastic lesions in the jejunum. Treated with a heater probe. - No specimens collected. Recommendations : - [facility]. - Full liquid diet today. - Continue present medications. - Nadolol 10 mg twice daily for variceal prophylaxis - Capsule endoscopy 2. Coronary artery disease ? With previous PCI ; Patient is on clopidogrel as well as simvastatin. Clopidogrel held given patient anemia 3. GERD ? Patient is on PPI 4. Diabetes mellitus type II -patient's oral hypoglycemics held. Placed on long acting insulin, Accu-Cheks a.c. and at bedtime and covered with sliding scale insulin 5. Nonalcoholic fatty liver disease ? Patient currently being followed by Dr. Zaman with GI as outpatient 6. Class III obesity with BMI of 46.8 ? Complicating care weight loss advised 7. Dyslipidemia ?Patient is on statin therapy, continued at home dose 8. DVT prophylaxis ? Chemoprophylaxis contraindicated given patient severe anemia Time spent in the patient's overall evaluation,decision-making process, review of diagnostic data, adjustment of management, discussion with other providers, nursing nursing and ancillary staff involved in patient's care documentation, 50-minute Medications at Discharge Home Medications cholecalciferol (vitamin D3) 325 mcg (13,000 unit) capsule 50,000 unit PO QODAY 12/04/24 clopidogrel 75 mg tablet (Plavix) 75 mg PO DAILY 12/04/24 methocarbamol 750 mg tablet 1,500 mg PO QHS 12/04/24 nitroglycerin 0.4 mg sublingual tablet 0.4 mg sublingual Q5-15M PRN chest pain 12/04/24 pantoprazole 20 mg tablet,delayed release 20 mg PO QHS 12/04/24 simvastatin 10 mg tablet 10 mg PO QHS 12/04/24 nadolol 20 mg tablet 10 mg (1/2 x 20 mg) PO BID 90 days #90 tabs 12/06/24 Physical Exam Narrative GENERAL: cooperative HEENT: Atraumatic; normocephalic EYES; Anicteric, Normal Conjunctiva NECK; supple, normal thyroid, RESPIRATORY: Diminished to auscultation CARDIOVASCULAR: Regular S1 S2, GI: soft, normoactive bowel sounds, : No Renal angle tenderness; EXTREMITIES: No edema, no clubbing, MUSCULOSKELETAL: no muscle wasting NEURO: Awake; no lateralizing signs. SKIN: No Rash PSYCH; Flat affect Weight / BMI Weight Weight: 115.9 kg Body Mass Index (BMI) 46.7 ABG / Lab / Microbiology Data 12/06/24 05:36 12/06/24 05:36 Laboratory: Laboratory Results - last 24 hr 12/05/24 13:52: Troponin T High Sens 8 12/05/24 15:38: Troponin T Hi Sens 2 Hr 9 12/06/24 05:36: WBC 3.9 L, RBC 3.80 L, Hgb 8.3 L, Hct 28.0 L, MCV 73.7 L, MCH 21.8 L, MCHC 29.6 L, RDW Std Deviation 56.1 H, RDW Coeff of Rafa 21.5 H, Plt Count 115 L, MPV 10.7, Immature Gran % (Auto) 0.300, Neut % (Auto) 50.1, Lymph %(Auto) 30.3, [place] % (Auto) 14.0 H, Eos % (Auto) 4.3, Baso % (Auto) 1.0, AbsoluteNeuts (auto) 2.0, Absolute Lymphs (auto) 1.19, Nucleated RBC % 0, Platelet Estimate SLT DEC, Polychromasia 1+, Anisocytosis 2+, Ovalocytes 1+, Sodium 139, Potassium 4.1, Chloride 109 H, Carbon Dioxide 20.3 L, Anion Gap 9, BUN 7, Creatinine 0.63 L, Estim Creat Clear Calc 81.20, Est GFR (MDRD) Non-Af 96, BUN/Creatinine Ratio 11.4, Glucose 95, Calcium 8.5 Microbiology: Microbiology 12/04/24 10:19 Stool Stool Occult Blood (ZEENAT) - Final Occult Blood Positive D/C Instructions Discharge Diet: 1800 Calorie Control Diet Discharge Activity: Return to Normal Activity Call your doctor if you observe: Fever of 101 or Higher, Shortness of breath, Fainting spells and Chest pain DC O2, CPAP, BIPAP Needs PSN CPAP & BiPAP: BiPAP & CPAP Settings per PSN Mode CPAP 12/06/24 03:43 Bipap Delivery Device Nasal Pillows 12/06/24 03:43 BiPAP Expiratory Pressure 11 12/06/24 03:43 Home O2 Discharge instructions: No Meaningful Use Info Meaningful Use Meaningful Use Diagnoses (Choose all that apply): None applicable Ischemic Stroke Statin Dosing Therapy Reference: STATIN DOSE THERAPY REFERENCE: * Patients > 75 years receive moderate or high dose statin therapy. * Patients 75 years or YOUNGER should receive HIGH intensity statin dose unless contraindicated. You will be required to document reason for non-treatment if statin daily dose does not meet guidelines. HIGH DOSE STATIN THERAPY DAILY Atorvastatin > than or = to 40 mg Rosuvastatin > than or = to 20 mg Amlodipine + Atorvastatin > than or = to 2.5/40 mg Ezetimibe + Simvastatin 10/80 mg Simvastatin 80mg Discharge Plan Admission Admit Date/Time: 12/04/24 13:02 Attending Provider: Hamzah Aguirre Primary Care Provider: Valdo Ritchie Discharge Orders/Prescriptions Prescriptions: New nadolol 20 mg Tablet 10 mg PO BID 90 Days Qty: 90 0RF Continued nitroglycerin 0.4 mg tablet, sublingual 0.4 mg sublingual Q5-15M PRN (Reason: chest pain) Rx Instructions: do not exceed 3 doses per episode clopidogrel [Plavix] 75 mg tablet 75 mg PO DAILY pantoprazole 20 mg tablet,delayed release (DR/EC) 20 mg PO QHS Patient Comments: PT UNSURE IF SHE TAKES 20MG OR 40MG. SHE HAD 40MG RECENTLY FILLED, BUT SAID SHE DID NOT PICK ANYTHING UP. simvastatin 10 mg tablet 10 mg PO QHS methocarbamol 750 mg tablet 1,500 mg PO QHS cholecalciferol (vitamin D3) 325 mcg (13,000 unit) capsule 50,000 unit PO QODAY Patient Comments: PT UNSURE OF STRENGTH Referrals / Follow Up: Francisco Zaman DO [Med Staff - Active Staff] - Within 2 Weeks (To be scheduled for capsule endoscopy) Valdo Ritchie NP-C [Primary Care Provider] - Within 2 Weeks Disposition Disposition (needs filled in before D/C Order can be placed): Home, Self Care Charges/Coding Visit Charges Inpatient E&M: 55540 Disch Hosp >30min 12/06/24 0934 <Electronically signed by Hamzah Aguirre MD> Cosigner Signature (if applicable): CC: PATIENT RELATIONS SPECIALIST-C Valdo Ritchie; Dr. Hamzah Aguirre MD~ Signed [facility] Work Phone: Evaluation note* Diagnosis Acute left eye pain- Primary Pain in or around eye Subconjunctival hemorrhage of left eye [facility]* Diagnosis SEVERINO (obstructive sleep apnea)- Primary Obstructive sleep apnea (adult) (pediatric) Morbid obesity with BMI of 40.0-44.9, adult [facility] Diagnosis Pain of left heel- Primary Pain in limb Heel spur, left Pain of left calf Pain in limb Pain of left heel Pain in limb Pain of left calf Pain in limb [facility]* Diagnosis Pain of left heel Pain in limb [facility]* Diagnosis Pain of left calf Pain in limb [facility] this encounter [facility] (narrative)No reason for referral information availableWCleveland Clinic Mercy [facility] Work Phone: Reason for visit Narrative* Diagnostic Procedure Only (Urgent) - Closed Specialty Diagnoses / Procedures Referred By Contpepper t Referred To Contact XR IMAGING Diagnoses Pain of left heel Procedures XR ANKLE GENERAL 3V AP/LAT/OBL LEFT RADEX ANKLE COMPLETE MINIMUM 3 VIEWS Venkata Danielle MD [address] [place] [address] Phone: tel: fax: [place] [id number] Referral ID Status Reason Start Date Expiration Date V isits Requested Visits Authorized [id number] Closed Auto-Generate d Referral 01/06/2025 02/05/2026 1 1 [facility] Chief Complaint and Reason for Visit Chief Complaint Admit Date EYE October 06, 2024 1 1:57am New Patient December 04, 2024 7:26 am INT LABS December 04, 2024 8:27 am ANEMIA December 04, 2024 1:02 pm Ches pain, Abnl labs December 04, 2024 1:1 3pm Reason for Visit Admit Date Cirrhosis December 04, 2024 7:26 am GERD (gastroesophageal reflux disease) A pril 2024 7:26am Anemia December 04, 2024 1:02 pm Coronary artery disease December 04, 2024 1:02pm GI (gastrointestinal bleed) Margie 2nd, 2 025 1:02pm Microcytic anemia December 04, 2024 1:02 pm Chief Complaint Admit Date EYE October 06, 2024 1 1:57am New Patient December 04, 2024 7:26 am INT LABS December 04, 2024 8:27 am ANEMIA December 04, 2024 1:02 pm Ches pain, Abnl labs December 04, 2024 1:1 3pm Anemia December 05, 2024 11:0 8am Chief Complaint Admit Date EYE October 06, 2024 1 1:57am New Patient December 04, 2024 7:26 am INT LABS December 04, 2024 8:27 am ANEMIA December 04, 2024 1:02 pm Ches pain, Abnl labs December 04, 2024 1:1 3pm Anemia December 05, 2024 11:0 8am Anemia December 05, 2024 6:25 pm Anemia December 06, 2024 9:29 am Chief Complaint Admit Date EYE October 06, 2024 1 1:57am New Patient December 04, 2024 7:26 am INT LABS December 04, 2024 8:27 am ANEMIA December 04, 2024 1:02 pm Ches pain, Abnl labs December 04, 2024 1:1 3pm Anemia December 05, 2024 11:0 8am Shortness of breath December 05, 2024 1:45 pm Anemia December 05, 2024 6:25 pm Anemia December 06, 2024 9:29 am Anemia December 06, 2024 7:38 pm Hospital FU December 11, 2024 10:1 4am Reason for Visit Admit Date Cirrhosis December 04, 2024 7:26 am GERD (gastroesophageal reflux disease) A pril 2024 7:26am Coronary artery disease December 04, 2024 1:02pm Microcytic anemia December 04, 2024 1:02 pm Anemia December 04, 2024 1:02 pm GI (gastrointestinal bleed) December 04 025 1:02pm Cirrhosis December 11, 2024 10:1 4am Anemia December 11, 2024 10:1 4am GI (gastrointestinal bleed) December 11 10:14am Chief Complaint Admit Date EYE October 06, 2024 1 1:57am New Patient December 04, 2024 7:26 am INT LABS December 04, 2024 8:27 am ANEMIA December 04, 2024 1:02 pm Ches pain, Abnl labs December 04, 2024 1:1 3pm Anemia December 05, 2024 11:0 8am Shortness of breath December 05, 2024 1:45 pm Anemia December 05, 2024 6:25 pm Anemia December 06, 2024 9:29 am Anemia December 06, 2024 7:38 pm Hospital FU December 11, 2024 10:1 4am RUQ PAIN December 20, 2024 10: 32am CAD/EDEMA (ERMA) January 08, 2025 8:42am Obstructive sleep apnea (adult) (pediatr ic) January 28, 2025 9:10am Reason for Visit Admit Date Cirrhosis December 04, 2024 7:26 am GERD (gastroesophageal reflux disease) A pril 2024 7:26am Coronary artery disease December 04, 2024 1:02pm Microcytic anemia December 04, 2024 1:02 pm Anemia December 04, 2024 1:02 pm GI (gastrointestinal bleed) December 04 1:02pm Cirrhosis December 11, 2024 10:1 4am Anemia December 11, 2024 10:1 4am GI (gastrointestinal bleed) December 11 025 10:14am Aortic stenosis January 08, 2025 8:42am Coronary artery disease January 08, 2025 8: 42am Esophageal varices January 08, 2025 8:42am Essential (primary) hypertension January 8:42am Advance Directives No Advanced Directives Records Found Advance Directive Response Recorded Date/ Time Living Will No October 06 12:58pm Do you have a Healthcare Power of Field Service Specialist? No October 06, 2024 12:58pm Living Will No December 04, 2024 10:36am Do you have a Healthcare Power of Field Service Specialist? No December 04, 2024 10:36am Advance Directive Response Recorded Date/ Time Living Will No October 06 12:58pm Do you have a Healthcare Power of Field Service Specialist? No October 06, 2024 12:58pm Living Will No December 04, 2024 5:11pm Do you have a Healthcare Power of Field Service Specialist? No December 04, 2024 5:11pm Summary Purpose Family History No Family History Records Found Relationship Condition Age at Onset Recorded Date/T aimee mother History of heart valve replacement Unknow n sister Myocardial infarction Unknown Additional Source Comments Source Comments (unrecognize d section and content) In the event this informatio n is protected by the Federal Confidentiality of Alcohol and Drug Abuse Patient Records regulations: The Federal rules restrict any use of the information to criminally investigate or prosecute any alcohol or drug abuse patient.[facility] the event this information is protected by the Federal Confidentiality of Alcohol and Drug Abuse Patient Records regulations: The Federal rules restrict any use of the information to criminally investigate or prosecute any alcohol or drug abuse patient.[facility] Center[facility] the event this information is protected by the Federal Confidentiality of Alcohol and Drug Abuse Patient Records regulations: The Federal rules restrict any use of the information to criminally investigate or prosecute any alcohol or drug abuse patient.[facility] Center[facility] the event this information is protected by the Federal Confidentiality of Alcohol and Drug Abuse Patient Records regulations: The Federal rules restrict any use of the information to criminally investigate or prosecute any alcohol or drug abuse patient.[facility] Center[facility] the event this information is protected by the Federal Confidentiality of Alcohol and Drug Abuse Patient Records regulations: The Federal rules restrict any use of the information to criminally investigate or prosecute any alcohol or drug abuse patient.[facility] Reason for Visit (unrecogniz ed section and content) Reason Comments Headache Left eye swollen and red, sharp pain in holiness last night, still have dull ache behind left eye x 1 day Reason Comments New Patient Has Difficulty falli ng asleep. Specialty Diagnoses / Procedures Referred By Contac t Referred To Contact Sleep Medicine Diagnoses SEVERINO (obstructive sleep apnea) Valdo Ritchie, SAMUEL [address] [place] [address] Phone: tel: fax: [facility] [address] [place] [address] Referral ID Status Reason Start Date Expiration Date V isits Requested Visits Authorized [id number] Pending Review 11/20/2024 12/15/2025 1 1 Reason Onset Date Comments Results 01/06/2025 US DVT (-) Reason Comments left foot pain X 1 day-cannot recal l an injury Reason Comments Radiology US Specialty Diagnoses / Procedures Referred By Contac t Referred To Contact US IMAGING Diagnoses Pain of left calf Procedures US DVT LOWER LEFT DUP-SCAN XTR VEINS UNILATERAL/LIMITED STUDY Venkata Danielle MD [address] [place] [address] Phone: tel: fax: [place] [id number] Referral ID Status Reason Start Date Expiration Date V isits Requested Visits Authorized [id number] Closed Auto-Generate d Referral 01/06/2025 02/05/2026 1 1 Care Teams (unrecognized sec tion and content) Team Status: Active Member Role Status Dates Valdo Ritchie , PATIENT RELATIONS SPECIALIST-C Primary Care Provider Active Team Status: Inactive Member Role Status Dates Dr. Guanaco Martinez DO Attending Provider Active Start: October 06, 2024 End: October 06, 2024 Dr. Guanaco Martinez DO Emergency Provider Active Start: October 06, 2024 End: October 06, 2024 No Primary Care Physician Primary Care Provider Active Start: October 06, 2024 End: October 06, 2024 Team Status: Inactive Member Role Status Dates Valdo Erma , PATIENT RELATIONS SPECIALIST-C Primary Care Provider Active Start: December 04, 2024 End: December 04, 2024 Valdo Ritchie , PATIENT RELATIONS SPECIALIST-C Referring Provider Active St art: December 04, 2024 End: December 04, 2024 SHANNON Norman Attending Provider Active Start: December 04, 2024 End: December 04, 2024 Team Status: Active Member Role Status Dates Valdo Ritchie , PATIENT RELATIONS SPECIALIST-C Primary Care Provider Active Start: December 04, 2024 SHANNON Norman Attending Provider Active Start: December 04, 2024 SHANNON Norman Referring Provider Active Start: December 04, 2024 Team Status: Active Member Role Status Dates Valdojuli Ritchie , PATIENT RELATIONS SPECIALIST-C Primary Care Provider Active Start: December 04, 2024 Dr. Naga Mcleod DO Emergency Provider Active Start: December 04, 2024 Dr. Hamzah Aguirre MD Admit Provider Active Star t: December 04, 2024 Dr. Hamzah Aguirre MD Attending Provider Active Start: December 04, 2024 Team Status: Active Member Role Status Dates Valdo Ritchie , PATIENT RELATIONS SPECIALIST-C Primary Care Provider Active Start: December 04, 2024 Dr. Naga Mcleod DO Emergency Provider Active Start: December 04, 2024 Dr. Hamzah Aguirre MD Attending Provider Active Start: December 04, 2024 Team Status: Inactive Member Role Status Dates Valdojuli Ritchie , PATIENT RELATIONS SPECIALIST-C Primary Care Provider Active Start: December 04, 2024 End: December 04, 2024 SHANNON Norman Attending Provider Active Start: December 04, 2024 End: December 04, 2024 SHANNON Norman Referring Provider Active Start: December 04, 2024 End: December 04, 2024 Team Status: Active Member Role Status Dates Valdo Erma , PATIENT RELATIONS SPECIALIST-C Primary Care Provider Active Start: December 05, 2024 Dr. Naga Mcleod DO Emergency Provider Active Start: December 05, 2024 Dr. Hamzah Aguirre MD Admit Provider Active Star t: December 05, 2024 Dr. Hamzah Aguirre MD Attending Provider Active Start: December 05, 2024 Dr. Hamzah Aguirre MD Other Provider Active Star t: December 05, 2024 Team Status: Inactive Member Role Status Dates Valdo Ritchie , PATIENT RELATIONS SPECIALIST-C Primary Care Provider Active Start: December 04, 2024 End: December 06, 2024 Dr. Naga Mcleod DO Emergency Provider Active Start: December 04, 2024 End: December 06, 2024 Dr. Hamzah Aguirre MD Admit Provider Active Star t: December 04, 2024 End: December 06, 2024 Dr. Hamzah Aguirre MD Attending Provider Active Start: December 04, 2024 End: December 06, 2024 Team Status: Active Member Role Status Dates Valdo Ritchie PATIENT RELATIONS SPECIALIST-C Primary Care Provider Active Start: December 05, 2024 Dr. Naga Mcleod DO Emergency Provider Active Start: December 05, 2024 Dr. Hamzah Aguirre MD Admit Provider Active Star t: December 05, 2024 Dr. Hamzah Aguirre MD Other Provider Active Star t: December 05, 2024 Dr. Francisco Zaman DO Attending Provider Active Start: December 05, 2024 Team Status: Active Member Role Status Dates Valdo Ritchie PATIENT RELATIONS SPECIALIST-C Primary Care Provider Active Start: December 06, 2024 Dr. Naga Mcleod DO Emergency Provider Active Start: December 06, 2024 Dr. Hamzah Aguirre MD Admit Provider Active Star t: December 06, 2024 Dr. Hamzah Aguirre MD Attending Provider Active Start: December 06, 2024 Dr. Hamzah Aguirre MD Other Provider Active Star t: December 06, 2024 Team Status: Active Member Role Status Dates Valdo Ritchie PATIENT RELATIONS SPECIALIST-C Primary Care Provider Active Start: December 05, 2024 End: December 05, 2024 Dr. Harpal Cruz MD Attending Provider Active S tart: December 05, 2024 End: December 05, 2024 Dr. Harpal Cruz MD Referring Provider Active S tart: December 05, 2024 End: December 05, 2024 Team Status: Active Member Role Status Dates Valdo Ritchie PATIENT RELATIONS SPECIALIST-C Primary Care Provider Active Start: December 05, 2024 Dr. Naga Mcleod DO Emergency Provider Active Start: December 05, 2024 Dr. Hamzah Aguirre MD Admit Provider Active Star t: December 05, 2024 Dr. Hamzah Aguirre MD Referring Provider Active Start: December 05, 2024 Dr. Hamzah Aguirre MD Other Provider Active Star t: December 05, 2024 Dr. Francisco Zaman DO Attending Provider Active Start: December 05, 2024 Team Status: Active Member Role Status Dates JU Mishra Primary Care Provider Active Start: December 06, 2024 Dr. Naga Mcleod DO Emergency Provider Active Start: December 06, 2024 Dr. Hamzah Aguirre MD Admit Provider Active Star t: December 06, 2024 Dr. Hamzah Aguirre MD Referring Provider Active Start: December 06, 2024 Dr. Hamzah Aguirre MD Other Provider Active Star t: December 06, 2024 Dr. Francisco Zaman DO Attending Provider Active Start: December 06, 2024 Team Status: Inactive Member Role Status Dates JU Mishra Primary Care Provider Active Start: December 11, 2024 End: December 11, 2024 JU Mishra Referring Provider Active St art: December 11, 2024 End: December 11, 2024 SHANNON Norman Attending Provider Active Start: December 11, 2024 End: December 11, 2024 Team Status: Inactive Member Role Status Dates JU Mishra Primary Care Provider Active Start: December 11, 2024 End: December 11, 2024 JU Plunkett Attending Provider Active Start: December 11, 2024 End: December 11, 2024 JU Plunkett Referring Provider Active Start: December 11, 2024 End: December 11, 2024 Inseminator Relationship Specialty [place] [address] [place] [id number] PCP - General Family Medicine 01/06/25 Inseminator Relationship Specialty [place] [address] [place] [address], [place] [address] PCP - General Family Medicine 01/06/25 Inseminator Relationship Specialty Start Date End Date Valdo Ritchie NP [address] [facility] [place] [address] PCP - General Family Medicine 01/06/25 Team Status: Inactive Member Role Status Dates Valdo Ritchie NP-C Primary Care Provider Active Start: December 20, 2024 End: December 20, 2024 SHANNON Norman Attending Provider Active Start: December 20, 2024 End: December 20, 2024 SHANNON Norman Referring Provider Active Start: December 20, 2024 End: December 20, 2024 Team Status: Inactive Member Role Status Dates Valdo Ritchie NP-C Primary Care Provider Active Start: January 08, 2025 End: January 08, 2025 JU Mishra Referring Provider Active St art: January 08, 2025 End: January 08, 2025 Dr. Harpal Cruz MD Attending Provider Active S tart: January 08, 2025 End: January 08, 2025 Team Status: Inactive Member Role Status Dates Valdo Ritchie NP-C Primary Care Provider Active Start: January 28, 2025 End: January 28, 2025 Dr. Humberto Barrera MD Attending Provider Active Start: January 28, 2025 End: January 28, 2025 Dr. Humberto Barrera MD Referring Provider Active Start: January 28, 2025 End: January 28, 2025 Goals (unrecognized section and content) Goals may be documented in a n alternate section INFORMATION SOURCE (unrecogn ized section and content) DATE CREATED AUTHOR 12/21/2024 [facility] DATE CREATED AUTHOR AUTHOR'S ORGANIZ ATION 01/09/2025 [facility] DATE CREATED AUTHOR AUTHOR'S ORGANIZ ATION 02/25/2025 [facility] FOR RECORDS PERTAINING TO PATIENTS WHO ARE OR HAVE BEEN ENROLLED IN A CHEMICAL DEPENDENCY/SUBSTANCEABUSE PROGRAM, SOME INFORMATION MAY BE OMITTED. This clinical summary was aggregated from multiple sources. Caution should be exercised in using it in the provision of clinical care. This summary normalizes information from multiple sources, and as a consequence, information in this document may materially change the coding, format and clinical context of patient data. In addition, data may be omitted in some cases. CLINICAL DECISIONS SHOULD BE BASED ON THE PRIMARY CLINICAL RECORDS. [facility] [employer] [facility]. provides no warranty or guarantee of the accuracy or completeness of information in this document.
--- NOTE | 2025-02-26 07:22 | BI_ITS ---
EXAM: SCRN MAMM (CAD)W/MIKO BILAT DATE: 02/26/2025 CLINICAL HISTORY: F, Age 70 y/o , SCREENING TECHNIQUE: SCRN MAMM (CAD)W/MIKO BILAT COMPARISON: Prior exam(s) dated 04/03/2024, 01/17/2022. FINDINGS: TISSUE DENSITY: There are scattered areas of fibroglandular density. Bilateral Breast Mammographic Findings: No significant masses, calcifications or other abnormalities are identified. BI/SCRN MAMM (CAD)W/MIKO BILAT IMPRESSION: There is no mammographic evidence of malignancy. OVERALL FINAL ASSESSMENT BI-RADS 1: NEGATIVE. RECOMMEND ANNUAL MAMMOGRAPHIC SCREENING. RECOMMENDATION: Routine annual follow-up in 1 Year A letter with findings and recommendations will be mailed to the patient. Reading Location: [id number]
--- NOTE | 2025-02-26 07:27 | BD_ITS ---
PROCEDURE: DEXA BONE DENSITY STUDY 02/26/2025 REASON FOR EXAM: F, age 70 y/o . Postmenopausal. TECHNIQUE: DEXA BONE DENSITY STUDY COMPARISON: None FINDINGS: BMD and T-SCORES Lumbar spine: 0.901 g/cm2, T-score -1.0 Levels: L1 through L4 Left femoral neck: 0.634 g/cm2, T-score -1.9 Femoral neck comparison data not recommended for monitoring change. Left total hip: 0.843 g/cm2, T-score -0.8 Right femoral neck: 0.505 g/cm2, T-score -3.1 Femoral neck comparison data not recommended for monitoring change. Right total hip: 0.773 g/cm2, T-score -1.1 The World Health Organization has defined the following categories based on bone density: Normal bone density: T-score equal to or greater than -1.0 Osteopenia: T-score between -1.0 and -2.5 Osteoporosis: T-score equal to or less than -2.5 The patient does meet the pharmacological treatment recommendations for prevention of osteoporosis. BD/Dexa Bone Density Study IMPRESSION: OSTEOPOROSIS. Recommend follow-up as clinically warranted. Reading Location: [facility]
[2025-02-26 10:12] LABS: Ferritin 9 ng/mL (22-378); Hepatitis B Surface Antigen Nonreactive (Nonreactive); Hepatitis C Antibody Nonreactive (Nonreactive); Iron 16 ug/dL (50-170); Iron Binding Capacity,Total 442 ug/dL (250-450); Iron Binding Capacity,Unsat 426 ug/dL (228-428)
[2025-02-26 11:43] LABS: Hepatitis B Surface Antibody REAC
[2025-02-27 05:07] LABS: GGTP 36 IU/L (0-60); Hepatitis A AB, Total Negative (Negative); Hepatitis B Core Ab Total Negative (Negative)
== END | disposition home or self-care (01) ==
PROVIDERS: Nurse Practitioner Acute Care; PCP Nurse Practitioner Family; Referring Provider Nurse Practitioner Family; Visit Provider Nurse Practitioner Family
DX: Z12.31 Encounter for screening mammogram for malignant neoplasm of breast (principal); K74.60 Unspecified cirrhosis of liver; Z78.0 Asymptomatic menopausal state; Z13.820 Encounter for screening for osteoporosis; S82.131A Displaced fracture of medial condyle of right tibia, initial encounter for closed fracture
CPT/HCPCS: 36415; 77063; 77067; 77080; 82728; 82977; 83540; 83550; 86704; 86706; 86708; 86803; 87340

== ENCOUNTER 2025-03-05 14:18 | Emergency (ER) | payer MEDICARE, SELFPAY ==
[2025-03-05] VITALS (10 sets, daily range): BP systolic 119–155; BP diastolic 49–79; PULSE 64–74; RESP 14–24; TEMP 35.8–36.8; O2SAT 100; BMI 48.2
--- NOTE | 2025-03-05 15:13 | EX.ED.DYSGE1 ---
HPI History of Present Illness Chief Complaint: Abn Labs Detail of Chief Complaint: Symptomatic anemia Informant: patient Onset/Context/Timing Onset: Weeks (2) Context: Sudden Onset Timing: Intermittent Quality: Dyspnea with activity Location: Cardiovascular/hematologic Current Severity: Gone Maximum Severity: Severe Worsened by: Walking briskly and especially going up steps Relieved by: Rest Associated Symptoms Associated Symptoms: None Narrative Narrative: Patient is a 70-year-old woman. She has a history of PARRY with varices, type 2 diabetes, coronary artery disease, essential hypertension, sliding hiatal hernia, GERD, obstructive sleep apnea and aortic stenosis who was sent to the ER because of a hemoglobin of 6.4. Hemoglobin was 8.4 December of this year. Patient denies black or maroon-colored stool. She denies dark stool. She has not noted any bright red blood. She denies orthostatic symptoms. She denies orthopnea. She has chronic swelling of her legs due to her cirrhosis. She denies nausea or vomiting. She denies chest pain at rest or activity. She is no longer on Plavix. She is on Protonix. She states she no longer bruises easily. She has not noted blood in her urine. She has not reported bleeding from her gums. Prior similar symptoms: No Recent Illness/Hospitalization: No [facility] Medical History (Updated 03/05/25 @ 16:[address] Pablo Douglas MD) Depression Diabetes Osteoporosis Non-smoker CPAP (continuous positive airway pressure) dependence Asthma Unstable angina Esophageal varices Bilateral carotid artery disease SEVERINO (obstructive sleep apnea) GERD (gastroesophageal reflux disease) Essential (primary) hypertension Edema Cirrhosis Diabetes type 2 Coronary artery disease Home Medications ?Medication ?Instructions ?Recorded ?Last Taken ?Type methocarbamol 750 mg tablet 1,500 mg PO QHS muscle spasms 12/04/24 12/03/24 History nitroglycerin 0.4 mg sublingual 0.4 mg sublingual Q5-15M PRN chest 12/04/24 Unknown History tablet pain cholecalciferol (vitamin D3) 325 125 mcg PO QODAY 01/08/25 Unknown History mcg (13,000 unit) capsule pantoprazole 40 mg tablet,delayed 40 mg PO QDAY 01/08/25 Unknown History release simvastatin 20 mg tablet 20 mg PO QDAY 01/08/25 Unknown History alendronate 70 mg tablet 70 mg PO QWEEK 03/05/25 Unknown History nadolol 20 mg tablet 10 mg (1/2 x 20 mg) PO BID 90 days 03/05/25 Unknown Rx #90 tabs spironolactone 100 mg tablet 100 mg PO BID #90 tabs 03/05/25 Unknown Rx Allergy/AdvReac Type Severity Reaction Status Date / Time Influenza Virus Vaccines Allergy Severe Anaphylaxis Verified 03/05/25 14:20 (flu vaccine) hydrocodone Allergy Angioedema Verified 03/05/25 14:20 Corticosteroids AdvReac Intermediate Other Verified 03/05/25 14:20 (Glucocorticoids) Family History Mother Heart valve replaced Sister Myocardial infarction Surgical History (Updated 03/05/25 @ 15:25 by Bella Calles) History of coronary artery stent placement History of percutaneous angioplasty (~10/2014) Hx of section Hx of total knee replacement History of total hysterectomy with bilateral salpingo-oophorectomy (BSO) Hx of appendectomy Social History (Updated 03/05/25 @ 15:[address] Pablo Douglas MD) household members: spouse Smoking Status: Never smoker alcohol intake: never substance use type: does not use ROS ROS ED Constitutional Constitutional ED: Denies chills, fever(s), subjective or sweats Eyes Eyes: Denies blurry vision or change in vision Cardiovascular Cardiovascular: Denies chest pain, orthopnea, palpitations, paroxysmal nocturnal dyspnea or racing heartbeat Respiratory/Chest Respiratory/Chest: Reports dyspnea on exertion; Denies cough, dyspnea, orthopnea, paroxysmal nocturnal dyspnea or sputum Gastrointestinal Gastrointestinal: Reports other Details: Detailed HPI narrative ; Denies abdominal pain, constipation, diarrhea, melena, nausea or vomiting Genitourinary Genitourinary ED: Denies hematuria Integumentary Denies rash Neurologic Neurologic: Denies weakness Hematologic/Lymphatic Hematologic/Lymphatic: Reports systems reviewed and no addt'l complaints, except as documented EXAM Physical Exam Const Vital Signs: 03/05/25 14:19 03/05/25 14:30 03/05/25 14:36 Temperature 96.5 F L Temperature Source Oral Pulse Rate 74 Pulse Rate [Lying] 64 Pulse Rate [Sitting (for 1 minute prior to obtaining)] 72 Pulse Rate [Standing (for 1 minute prior to obtaining)] 72 Respiratory Rate 22 H Respiratory Effort Normal Non-Labored Respiratory Pattern Normal Blood Pressure 141/68 H Blood Pressure [Lying] 131/64 H Blood Pressure [Sitting (for 1 minute prior to obtaining)] 139/59 H Blood Pressure [Standing (for 1 minute prior to obtaining)] 155/79 H Blood Pressure Mean 92 Blood Pressure Mean [Lying] 86 Blood Pressure Mean [Sitting (for 1 minute prior to obtaining)] 85 Blood Pressure Mean [Standing (for 1 minute prior to obtaining)] 104 Pulse Ox 100 Oxygen Delivery Method Room Air 03/05/25 15:36 03/05/25 16:00 Temperature Temperature Source Pulse Rate 74 66 Pulse Rate [Lying] Pulse Rate [Sitting (for 1 minute prior to obtaining)] Pulse Rate [Standing (for 1 minute prior to obtaining)] Respiratory Rate 16 20 H Respiratory Effort Respiratory Pattern Blood Pressure 141/49 H 155/79 H Blood Pressure [Lying] Blood Pressure [Sitting (for 1 minute prior to obtaining)] Blood Pressure [Standing (for 1 minute prior to obtaining)] Blood Pressure Mean 79 104 Blood Pressure Mean [Lying] Blood Pressure Mean [Sitting (for 1 minute prior to obtaining)] Blood Pressure Mean [Standing (for 1 minute prior to obtaining)] Pulse Ox 100 100 Oxygen Delivery Method Room Air Room Air Positive well nourished and well developed Constitutional Narrative: She appears no distress. BMI is 48.2. She does appear pale. General Appearance ED: well developed, NAD and pallor; Negative for cyanotic or diaphoretic HEENT Reports moist mucous membranes HEENT Narrative: Ears are normal. Nares are patent. Head is normocephalic and atraumatic. Eyes PERRL and EOMs intact bilaterally General Eye ED: Negative for pale conjunctiva or scleral icterus Neck no lymphadenopathy, supple and no JVD Chest Wall inspection of chest normal and palpation of chest normal Resp normal respiratory effort and clear to auscultation bilaterally Cardio regular rate, regular rhythm, S1 normal heart sound and S2 normal heart sound; Negative for no murmurs GI normal to inspection, nondistended, normoactive bowel sounds, non-tender, non-distended and no masses; Negative for hepatosplenomegaly GI Narrative: Rectal exam reveals evidence of prior hemorrhoids. There is no fissures or fistulas noted. Rectal tone is normal. Stool is light brown. Palpation: soft Back/Spine no CVA tenderness Extremity Negative for normal to inspection General Extremety ED: Yes edema General Extremity: edema Neuro oriented x3, CN's II-XII intact bilaterally and no sensory deficits noted Sensorium / Orientation: alert Motor Exam: strength 5/5 throughout Psych mental status grossly normal Skin no rashes or lesions noted, no wounds and skin turgor normal General Skin Exam: pallor; Negative for elasticity normal or jaundice [facility] MDM Narrative Medical decision making narrative: Since patient had blood work prior to arrival this was not repeated. Hemoglobin is 6.4. BUN to creatinine ratio was normal. This would suggest not an active bleed. Stool was sent to see if there is microscopic bleeding. Orthostatic vital signs were ordered as well. Review of prior records indicates she was seen today by physician clinic office assistant Jolanta Sidhu. Her note was reviewed. Assessment was #1 cirrhosis, #2 esophageal varices, #3 GERD and blood work was ordered. Spironolactone was changed from 100 mg a.m. to 100 mg twice daily. She also was seen by SHANNON December 11. At that time diagnosis of cirrhosis, anemia and gastrointestinal bleed. Based on that note patient also has ascites that was documented on CAT scan. He performed an EGD upper on the third as well. 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 These recommendations were reviewed. History & Record Review Additional record(s) reviewed:: Prior outpatient record (Documented in the MDM portion of the EMR.) and Prior labs Lab Data Attestation: I reviewed the patient's lab results. Lab results narrative: Reviewed labs that were obtained prior to her arrival. These were documented in the MDM narrative of the EMR. Labs: Laboratory Results - last 24 hr 03/05/25 14:45 Blood Type O POSITIVE Antibody Screen NEGATIVE Crossmatch See Detail Management Discussion w/another healthcare provider: Para Educator (Spoke with Dr. Zaman her blower feeder dyed raw stock. Plan is discharge after infusion, ferrous sulfate tablets and follow-up since she has heme positive stool and 2 g drop in her hemoglobin since December.) Discharge Plan Triage Chief Complaint: Abn Labs ED Provider: MisaelPablo Dx/Rx/DC Orders Clinical Impression: Symptomatic anemia, Essential (primary) hypertension, SEVERINO (obstructive sleep apnea), Diabetes type 2, Aortic stenosis, Signs and symptoms of anemia, Occult blood in stools, RUBY (iron deficiency anemia) Prescriptions: No Action nitroglycerin 0.4 mg tablet, sublingual 0.4 mg sublingual Q5-15M PRN (Reason: chest pain) Rx Instructions: do not exceed 3 doses per episode pantoprazole 40 mg tablet,delayed release (DR/EC) 40 mg PO QDAY simvastatin 20 mg tablet 20 mg PO QDAY Patient Comments: [NO ORIGINAL SIG] methocarbamol 750 mg tablet 1,500 mg PO QHS cholecalciferol (vitamin D3) 325 mcg (13,000 unit) capsule 125 mcg PO QODAY Patient Comments: PT UNSURE OF STRENGTH spironolactone 100 mg tablet 100 mg PO BID Qty: 90 1RF Patient Comments: was supposed to start bid today nadolol 20 mg tablet 10 mg PO BID 90 Days Qty: 90 0RF alendronate 70 mg tablet 70 mg PO QWEEK Patient Comments: has not started med yet Primary Care Provider: Casie Nayak Referrals: Francisco Zaman DO [Med Staff - Active Staff] - 1-2 Weeks Casie Nayak NP-C [Primary Care Provider] - Activity Restrictions/Additional Instructions: 1. You need to contact Dr. Zaman's office for follow-up since you have occult blood in your stool and is the cause of your anemia 2. If you notice black stool or maroon-colored stool return to the emergency department immediately 3. You need to take an iron tablet in the morning and in the afternoon for the next 30 days Print Language: Arabic Disposition Disposition: Home, Self Care
== END 2025-03-05 18:50 | disposition home or self-care (01) ==
PROVIDERS: Emergency Provider Emergency Medicine; PCP Nurse Practitioner Family; Referring Provider Emergency Medicine; Visit Provider Emergency Medicine
DX: R79.9 Abnormal finding of blood chemistry, unspecified (principal); I35.0 Nonrheumatic aortic (valve) stenosis; D50.9 Iron deficiency anemia, unspecified; I25.10 Atherosclerotic heart disease of native coronary artery without angina pectoris; Z90.710 Acquired absence of both cervix and uterus; G47.33 Obstructive sleep apnea (adult) (pediatric); I10 Essential (primary) hypertension; R19.5 Other fecal abnormalities; Z99.89 Dependence on other enabling machines and devices; K21.9 Gastro-esophageal reflux disease without esophagitis; Z79.899 Other long term (current) drug therapy; Z95.5 Presence of coronary angioplasty implant and graft; Z95.820 Peripheral vascular angioplasty status with implants and grafts; Z96.659 Presence of unspecified artificial knee joint; Z90.722 Acquired absence of ovaries, bilateral; Z90.49 Acquired absence of other specified parts of digestive tract
CPT/HCPCS: 82274; 86850; 86900; 86901; 99285; P9016; A4216

== ENCOUNTER → 2025-03-05 | Outpatient (CLI) | payer MEDICARE, SELFPAY ==
[2025-03-05 10:32] LABS: Hematocrit 23.5 % (37-47); Hemoglobin 6.4 g/dL (12.0-15.0); Immature Granulocytes Count 0.010 X10^3/uL (0.0-0.0); Mean Corp Hgb Conc 27.2 g/dL (32-36); Mean Corpuscular Volume 71.9 fL (81-99); Mean Platelet Vol. 11.5 fl (6.2-12.0); NRBC Flagged by Analyzer 0 % (0-5); POSITIVE COUNT YES; Platelet Count 99 K/mm3 (150-450); RBC Distribution Width CV 18.3 % (11.6-14.6); RBC Distribution Width SD 47.3 fl (35.1-43.9); Red Blood Count 3.27 M/mm3 (4.2-5.4); White Blood Count 3.5 K/mm3 (4.4-11.0)
[2025-03-05 10:41] LABS: Prothrombin Time (Protime)PT. 18.0 SECONDS (11.7-14.9)
[2025-03-05 11:16] LABS: AST(SGOT) 39 U/L (<=31); Alanine Aminotransfer ALT/SGPT 21 U/L (<=34); Albumin, Serum 3.5 g/dL (3.4-4.8); Alkaline Phosphatase 153 U/L (35-104); Anion Gap 10 (5-15); BUN 11 mg/dL (4-19); BUN/Creat Ratio 19.0 RATIO (10-20); Calcium,Total 8.8 mg/dL (7.6-11.0); Carbon Dioxide 22.0 mmol/L (21.0-32.0); Chloride 109 mmol/L (98-108); Globulin 2.6 g/dL (2.2-4.2); Glucose 141 mg/dL (70-99); Potassium 3.7 mmol/L (3.3-5.1)
--- OUTSIDE RECORDS SUMMARY | 2025-03-05 20:55 | XMS RPT_ITS | CCD ---
Author Organization 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 Blanc Attending Provider [phone] Dr. Guanaco Martinez DO Emergency Provider Care Physician, No Primary Primary Care Provider Unavailable Erma AUDIO PRODUCTION INSTRUCTOR-C, Valdo Primary Care Provider Erma AUDIO PRODUCTION INSTRUCTOR-C, Valdo Referring Provider Jolanta Caldera Attending Provider Jolanta Caldera Referring Provider [phone] Naga Mcleod DO Emergency Provider Dr. Hamzah Aguirre MD Admit Provider Unavailable Dr. Hamzah Aguirre MD Attending Provider Unavailantionette Aguirre MD, Dr. Goodson Other Provider Unavailable Dr. Francisco Zaman DO Attending Provider Dr. Harpal Cruz MD Attending Provider [phone] Dr. Harpal Cruz MD Referring Provider [phone] Dr. Hamzah Aguirre MD Referring Provider Unavailantionette Bonilla AUDIO PRODUCTION INSTRUCTOR-CVanesa Attending Provider Chad AUDIO PRODUCTION INSTRUCTOR-CVanesa Referring Provider Unavailable Primary Care Provider UnavailHUMBERTO Gardner Attending Unavailable ERMA, VALDO Referring Unavailable Erma AUDIO PRODUCTION INSTRUCTOR, Valdo Primary Care Provider ERMA, VALDO Primary Care Unavailable VENKATA DANIELLE Attending Unavailable VENKATA DANIELLE Referring Unavailable ERMA, VALDO Primary Care Unavailable VENKATA DANIELLE Referring Unavailable ERMA, VALDO Primary Care Unavailable Bruce MAS, Dr. Paul Attending Provider Dr. Humberto Barrera MD Referring Provider [phone] Chad AUDIO PRODUCTION INSTRUCTOR-C, Vanesa Other Provider Erma AUDIO PRODUCTION INSTRUCTOR-C, Valdo Attending Provider Erma, Valdo Primary Care Unavailable Francisco Zaman Attending Unavailable Hamzah Aguirre Consulting Unavailable Hamzah Aguirre Admitting Unavailable Hamzah Aguirre Referring Unavailable Care Physician, No Primary Primary Care Unava ilable Guanaco Martinez Attending Unavailable ChadVanesa Referring Unavailable ChadVanesa Attending Unavailable Erma, Valdo Primary Care Unavailable Erma, Valdo Primary Care Unavailable Hamzah Aguirre Attending Unavailable KitHamzah hernandez Attending Unavailable Erma, Valdo Primary Care Unavailable Anthony, Harpal Referring Unavailable Anthony, Harpal Attending Unavailable Hamzah Aguirre Admitting Unavailable Hamzah Aguirre Attending Unavailable Erma, Valdo Primary Care Unavailable Atanasov, Jolanta Referring Unavailable Atanasov, Jolanta Attending Unavailable Erma, Valdo Primary Care Unavailable Erma, Valdo Referring Unavailable Erma, Valdo Attending Unavailable Erma, Valdo Primary Care Unavailable Erma, Valdo Referring Unavailable Atanasov, Jolanta Attending Unavailable Erma, Valdo Primary Care Unavailable MagalangJohnHumberto Referring Unavailable MagalangEvertons Attending Unavailable Erma, Valdo Primary Care Unavailable ChadVanesa Consulting Unavailable Erma, Valdo Primary Care Unavailable Anthony, Harpal Referring Unavailable Anthony, [place] Attending Unavailable Erma, Valdo Referring Unavailable Erma, Valdo Attending Unavailable ChadMarybethVanesa Consulting Unavailable Erma, Valdo Primary Care Unavailable Atanasov, Jolanta Referring Unavailable Atanasov, Jolanta Attending Unavailable Erma, Valdo Primary Care Unavailable Erma, Valdo Primary Care Unavailable Erma, Valdo Referring Unavailable Atanasov, Jolanta Attending Unavailable Erma, Valdo Referring Unavailable Atanasov, Jolanta Attending Unavailable Erma, Valdo Primary Care Unavailable Erma, Valdo Referring Unavailable Erma, Valdo Primary Care Unavailable Anthony, [place] Attending Unavailable Erma, Valdo Primary Care Unavailable Anthony, Harpal Attending Unavailable Dr. Pablo Douglas MD Referring Provider Dr. Pablo Douglas MD Emergency Provider Allergies Allergy Classification Reported Allergen(s) Allergy Type Date of Onset Reaction(s) Facility (6 sources) Cortisone; Translations: [CORTISONE] Drug Allergy 10-06-19 Other: See Comments [facility] (6 sources) Influenza Virus Vaccines; Translations: [INFLUENZA VIRUS VACCINES] Drug Allergy 10-06-19 Anaphylaxis [facility] (9 sources) Glucocorticoid Receptor Agonists Propensity to adverse reactions 10-06-19 Other [facility] Comment on above: HTN (9 sources) HYDROcodone Drug Allergy 12-05-19 Angioedema [facility] (9 sources) Influenza Vaccines Allergy to substance 10-06-19 Anaphylaxis [facility] (1 source) Corticosteroids Drug allergy (disorder) 01-09-20 [facility] (1 source) HYDROcodone Drug Allergy 01-09-20 [facility] (1 source) Influenza Virus Vaccines Drug allergy (disorder) 01-09-20 [facility] Medications Current Medications Medication Drug Class(es) Dates Sig (Normalized) Sig (Original) alendronic acid 70 mg oral tablet (1 source) Bisphosphonate Start: 03-05-2025 take 1 tablet by mouth every week Alendronate 70 mg tablet Active 70 mg PO EVERY WEEK March 05, 2025 12:00am cholecalciferol 0.325 mg oral capsule (20 sources) Vitamin D Start: 01-08-2025 take 1 capsule by mouth every other day Cholecalciferol (Vitamin D3) 325 mcg (13,000 unit) capsule Active 125 ug PO EVERY OTHER DAY January 08, 2025 8:52am Start: 12-04-2024 End: 01-08-2025 take 1 capsule by mouth every other day Cholecalciferol (Vitamin D3) 325 mcg (13,000 unit) capsule Discontinued 70000 U PO EVERY OTHER DAY December 04, 2024 8:18am January 08, 2025 8:52am Start: 12-04-2024 End: 12-04-2024 take 1 capsule by mouth every week Cholecalciferol (Vitamin D3) 325 mcg (13,000 unit) capsule Discontinued 325 ug PO EVERY WEEK December 04, 2024 12:00am December 04, 2024 8:19am methocarbamol 750 mg oral tablet (20 sources) Muscle Relaxant Start: 12-04-2024 take 2 tablets by mouth at bedtime Methocarbamol 750 mg tablet Active 1500 mg PO AT BEDTIME December 04, 2024 8:11am muscle spasms Start: 12-04-2024 End: 12-04-2024 take 1 tablet by mouth at bedtime Methocarbamol 750 mg tablet Discontinued 750 mg PO AT BEDTIME December 04, 2024 12:00am December 04, 2024 8:12am nadolol 20 mg oral tablet (9 sources) beta-Adrenergic Lexi Start: 12-06-2024 End: 03-05-2025 take 1 tablet by mouth twice daily Nadolol 20 mg tablet Active 10 mg PO TWICE A DAY 90 90 0 March 05, 2025 9:03am Nitrofurantoin (5 sources) Nitrofuran Antibacterial NITROFURANTOIN ORAL Take by mouth. Active omega-3s/dha/epa/fis h oil/D3 (VITAMIN-D + OMEGA-3 ORAL) (4 sources) omega-3s/dha/epa /fi sh oil/D3 (VITAMIN-D + OMEGA-3 ORAL) Take by mouth. Active spironolactone 100 mg oral tablet (12 sources) Aldosterone Antagonist Start: 03-05-2025 take 1 tablet by mouth twice daily Spironolactone 100 mg tablet Active 100 mg PO TWICE A DAY 90 1 March 05, 2025 8:59am Start: 12-11-2024 End: 03-05-2025 take 1 tablet by mouth once daily in the morning Spironolactone 100 mg tablet Discontinued 100 mg PO EVERY MORNING 30 December 11, 2024 12:00am March 05, 2025 9:00am Completed/Discontinued Medications Medication Drug Class(es) Dates Sig (Normalized) Sig (Original) clopidogrel 75 mg oral tablet (14 sources) [id number] Platelet Inhibitor Start: 08-28-2024 End: 03-05-2025 take 1 tablet by mouth once daily Clopidogrel (Plavix) 75 mg tablet Discontinued 75 mg PO DAILY December 04, 2024 12:00am March 05, 2025 8:53am anti platelet 24 hr metoprolol succinate 25 mg extended release oral tablet (9 sources) beta-Adrenergic Lexi Start: 12-04-2024 End: 12-04-2024 take 1 tablet by mouth once daily Metoprolol Succinate 25 mg tablet extended release 24 hr Discontinued 25 mg PO daily December 04, 2024 12:00am December 04, 2024 11:26am nitroglycerin 0.3 mg sublingual tablet (20 sources) Nitrate Vasodilator Start: 12-04-2024 End: 12-04-2024 [...] pantoprazole 20 mg delayed release oral tablet (19 sources) Proton Pump Inhibitor Start: 12-04-2024 End: 01-08-2025 take 1 tablet by mouth at bedtime Pantoprazole 20 mg tablet,delayed release (DR/EC) Discontinued 20 mg PO AT BEDTIME December 04, 2024 12:00am January 08, 2025 8:51am Start: 08-28-2024 take 1 tablet by ceferino once daily Pantoprazole 40 mg tablet,delayed release (DR/EC) Active 40 mg PO daily January 08, 2025 12:00am simvastatin 10 mg oral tablet (19 sources) HMG-CoA Reductase Inhibitor Start: 12-04-2024 End: 01-08-2025 take 1 tablet by mouth at bedtime Simvastatin 10 mg tablet Discontinued 10 mg PO AT BEDTIME December 04, 2024 12:00am January 08, 2025 8:51am cholesterol Start: 08-13-2024 take 1 tablet by ceferino once daily Simvastatin 20 mg tablet Active 20 mg PO daily January 08, 2025 12:00am Problems Active Problems Problem Classification Problem Date Documented Da te Episodic/Chronic Abdominal pain (1 source) Right upper quadrant pain; Translations: [Right upper quadrant pain] Onset: Episodic Coronary atherosclerosis and other heart disease (20 sources) Coronary arteriosclerosis; Translations: [Atherosclerotic heart disease of [place] coronary artery without angina pectoris] Onset: 5 12-04-2024 Chronic Deficiency and other anemia (20 sources) Anemia; Translations: [Anemia, unspecified] 12-04-2024 Episodic Deficiency and other anemia (18 sources) Microcytic anemia; Translations: [Iron deficiency anemia, unspecified] 12-04-2024 Episodic Deficiency and other anemia (1 source) Anemia, unspecified; Translations: [Anemia, unspecified] Onset: Episodic Deficiency and other anemia (1 source) Iron deficiency anemia, unspecified; Translations: [Iron deficiency anemia, unspecified] Onset: Episodic Deficiency and other anemia (1 source) Iron deficiency anemia; Translations: [Iron deficiency anemia, unspecified] 03-05-2025 Episodic Diabetes mellitus without complication (10 sources) Type 2 diabetes mellitus; Translations: [Type 2 diabetes mellitus without complications] Onset: 5 10-06-2024 Chronic Esophageal disorders (20 sources) Gastroesophageal reflux disease; Translations: [Gastro-esophageal reflux disease without esophagitis] Onset: 5 12-04-2024 Chronic Essential hypertension (15 sources) Essential hypertension; Translations: [Essential (primary) hypertension] Onset: 5 12-04-2024 Chronic Gastrointestinal hemorrhage (20 sources) Gastrointestinal hemorrhage; Translations: [Gastrointestinal hemorrhage, unspecified] Onset: 5 12-04-2024 Episodic Headache; including migraine (9 sources) Headache; Translations: [Headache] 10-14-2024 Episodic Heart valve disorders (10 sources) Aortic valve stenosis; Translations: [Nonrheumatic aortic (valve) stenosis] 01-08-2025 Chronic Other circulatory disease (9 sources) Disorder of carotid artery; Translations: [Disorder [...] left eye] 10-06-2024 Episodic Other eye disorders (9 sources) Subconjunctival hemorrhage; Translations: [Conjunctival hemorrhage, unspecified eye] 10-14-2024 Episodic Other gastrointestinal disorders (1 source) Occult blood in stools; Translations: [Other fecal abnormalities] 03-05-2025 Episodic Other liver diseases (20 sources) Cirrhosis of liver; Translations: [Unspecified cirrhosis of liver] 10-06-2024 Chronic Other liver diseases (1 source) Unspecified cirrhosis of liver; Translations: [Unspecified cirrhosis of liver] Onset: Chronic Other lower respiratory disease (1 source) Shortness of breath; Translations: [Shortness of breath] Onset: Episodic Other nutritional; endocrine; and metabolic disorders (2 sources) Body mass index 40+ - severely obese; Translations: [Morbid (severe) obesity due to excess calories] 12-19-2024 Chronic Other nutritional; endocrine; and metabolic disorders (2 sources) Morbid (severe) obesity due to excess calories; Translations: [Morbid (severe) obesity due to excess calories] Onset: Chronic Other nutritional; endocrine; and metabolic disorders (2 sources) Body mass index (BMI) 40.0-44.9, adult; Translations: [Body mass index (BMI) 40.0-44.9, adult] Onset: 5 Chronic Other screening for suspected conditions (not mental disorders or infectious disease) (1 source) Encounter for screening mammogram for malignant neoplasm of breast; Translations: [Encounter for screening mammogram for malignant neoplasm of breast] Onset: 5 Episodic Residual codes; unclassified (11 sources) Obstructive sleep apnea syndrome; Translations: [Obstructive sleep apnea (adult) (pediatric)] 12-04-2024 Chronic Residual codes; unclassified (3 sources) Obstructive sleep apnea (adult) (pediatric); Translations: [Obstructive sleep apnea (adult) (pediatric)] Onset: 5 Chronic Residual codes; unclassified (9 sources) Edema; Translations: [Edema, unspecified] 12-04-2024 Episodic Residual codes; unclassified (1 source) Sign; Translations: [Other general symptoms and signs] 03-05-2025 Episodic Unclassified (7 sources) To be scheduled for capsule endoscopy Past or Other Problems Problem Classification Problem Date Documented Da te Episodic/Chronic Other eye disorders (1 source) Ocular pain, left eye; Translations: [Ocular pain, left eye] Onset: 12-03-2024 Episodic Other non-traumatic joint disorders (1 source) Pain in right knee; Translations: [Pain in right knee] Onset: 11-15-2024 Episodic Results Test Name Value Interpretation Reference Range Facility Absolute lymphocyte countOrd ered By: Jolanta Paz on 03-05-2025 Lymphocytes Auto (Unsp spec) [#/Vol] 0.90 10*3/uL 0.83-4.51 [facility] Absolute neutrophil countOrd ered By: Jolanta Paz on 03-05-2025 Neutrophils (Bld) [#/Vol] 1.9 10*3/uL Low 2.0-7.7 [facility] Anion gap in Serum or Plasma Ordered By: Jolanta Paz on 03-05-2025 Anion gap [Moles/Vol] 10 mmol/L 5-15 [facility] Automated lymphocyte count a s percentage of total leukocytesOrdered By: Jolanta Paz on 03-05-2025 Lymphocytes/100 WBC Auto (Unsp spec) 25.9 % 19-41 [facility] BUN/creatinine ratioOrdered By: Jolanta Paz on 03-05-2025 Urea nitrogen/Creatinine [Mass ratio] 19.0 mg/mg 10-20 [facility] Basophil percentageOrdered B y: Jolanta Paz on 03-05-2025 Basophils/100 WBC (Bld) 0.9 % 0-1 [facility] Bilirubin, totalOrdered By: Jolanta Paz on 03-05-2025 Bilirubin [Mass/Vol] 0.72 mg/dL 0.00-1.30 [facility] Carbon dioxide, total [Moles /volume] in Central venous bloodOrdered By: Jolanta Paz on 03-05-2025 CO2 [Moles/Vol] 22.0 mmol/L 21.0-32.0 [facility] Chloride assayOrdered By: Laurence Paz on 03-05-2025 Chloride [Moles/Vol] 109 mmol/L High 98-108 [facility] Eosinophil percentageOrdered By: Jolanta Paz on 03-05-2025 Eosinophils/100 WBC (Bld) 5.5 % High 0-5 [facility] Erythrocyte distribution wid th ratioOrdered By: Jolanta Paz on 03-05-2025 Erythrocyte distribution width (RBC) [Ratio] 18.3 % High 11.6-14.6 [facility] Erythrocyte distribution wid th standard deviationOrdered By: Jolanta Paz on 03-05-2025 Erythrocyte distribution width (RBC) [Ratio] 47.3 fl High 35.1-43.9 [facility] Glomerular filtration rate ( GFR) estimation/1.73 sq m using serum, plasma, or whole bOrdered By: Jolanta Paz on 03-05-2025 GFR/1.73 sq M.predicted among non-blacks MDRD (S/P/Bld) [Vol rate/Area] 98 mL/min/{1.73_m2} >60 [facility] Comment on above: mL/min/1.73m2 CKD-EP I Creatinine Equation (2020) Hematocrit Auto (Bld) [Volum e fraction]Ordered By: Jolanta Paz on 03-05-2025 Hematocrit (Bld) [Volume fraction] 23.5 % Low 37-47 [facility] Hemoglobin measurementOrdere d By: Jolanta Paz on 03-05-2025 Hemoglobin (Bld) [Mass/Vol] 6.4 g/dL Low 12.0-15.0 [facility] Immature granulocytes/100 WB C Auto (Bld)Ordered By: Jolanta Paz on 03-05-2025 Immature granulocytes/100 WBC (Bld) 0.300 % 0.0-0.9 [facility] Comment on above: IG% - Immature Granu locytes (promyelocytes, myelocytes and metamyelocytes) > 1% indicates that a LEFT SHIFT is Present. International normalized rat io (INR) calculationOrdered By: Jolanta Paz on 03-05-2025 INR Coag (Bld) [Relative time] 1.5 {INR} [facility] - Chemistry and C hemistry - challengeOrdered By: Jolanta Paz on 03-05-2025 AST [Catalytic activity/Vol] 39 U/L High <32 [facility] MCV (mean corpuscular volume ) determinationOrdered By: Jolanta Paz on 03-05-2025 MCV (RBC) [Entitic vol] 71.9 fL Low 81-99 [facility] Mean corpuscular hemoglobin (MCH) determinationOrdered By: Jolanta Paz on 03-05-2025 MCH (RBC) [Entitic mass] 19.6 pg Low 27.0-32.0 [facility] Mean corpuscular hemoglobin concentration (MCHC) determinationOrdered By: Jolanta Paz on 03-05-2025 MCHC (RBC) [Mass/Vol] 27.2 g/dL Low 32-36 [facility] Mean platelet volume determi nationOrdered By: Jolanta Paz on 03-05-2025 Platelet mean volume (Bld) [Entitic vol] 11.5 fL 6.2-12.0 [facility] Monocyte percentageOrdered B y: Jolanta Paz on 03-05-2025 Monocytes/100 WBC (Bld) 12.4 % High 0-10 [facility] Neutrophil percentageOrdered By: Jolanta Paz on 03-05-2025 Neutrophils/100 WBC (Bld) 55.0 % 47-70 [facility] Nucleated red blood cell per centageOrdered By: Jolanta Paz on 03-05-2025 Nucleated RBC/100 WBC (Bld) [Ratio] 0 % 0-5 [facility] Platelet countOrdered By: Laurence Paz on 03-05-2025 Platelets (Bld) [#/Vol] 99 10*3/uL Low 150-450 [facility] Potassium measurement (mass/ volume)Ordered By: Jolanta Paz on 03-05-2025 Potassium (Unsp spec) [Mass/Vol] 3.7 mmol/L 3.3-5.1 [facility] Prothrombin timeOrdered By: Jolanta Paz on 03-05-2025 PT Coag (PPP) [Time] 18.0 s High 11.7-14.9 [facility] RBC Auto (Bld) [#/Vol]Ordere d By: Jolanta Paz on 03-05-2025 RBC (Bld) [#/Vol] 3.27 10*6/uL Low 4.2-5.4 [facility] Serum creatinine measurement (mass/volume)Ordered By: Jolanta Paz on 03-05-2025 Creatinine [Mass/Vol] 0.58 mg/dL Low 0.70-1.20 [facility] Serum globulin measurementOr dered By: Jolanta Paz on 03-05-2025 Globulin (S) [Mass/Vol] 2.6 g/dL 2.2-4.2 [facility] Serum glucose measurement (m ass/volume)Ordered By: Jolanta Paz on 03-05-2025 Glucose [Mass/Vol] 141 mg/dL High 70-99 [facility] Serum or plasma alanine morocho otransferase (ALT) measurementOrdered By: Jolanta Paz on 03-05-2025 ALT [Catalytic activity/Vol] 21 U/L <35 [facility] Serum or plasma albumin harmony urement (mass/volume)Ordered By: Jolanta Paz on 03-05-2025 Albumin [Mass/Vol] 3.5 g/dL 3.4-4.8 [facility] Serum or plasma albumin/glob ulin mass ratioOrdered By: Jolanta Paz on 03-05-2025 Albumin/Globulin [Mass ratio] 1.3 {ratio} 0.9-2.4 [facility] Serum or plasma alkaline chacha sphatase measurementOrdered By: Jolanta Paz on 03-05-2025 ALP [Catalytic activity/Vol] 153 U/L High 35-104 [facility] Serum or plasma calcium harmony urement (mass/volume)Ordered By: Jolanta Paz on 03-05-2025 Calcium [Mass/Vol] 8.8 mg/dL 7.6-11.0 [facility] Serum or plasma urea nitroge n measurement (mass/volume)Ordered By: Jolanta Paz on 03-05-2025 Urea nitrogen [Mass/Vol] 11 mg/dL 4-19 [facility] Sodium levelOrdered By: Delores Paz on 03-05-2025 Sodium [Moles/Vol] 141 mmol/L 133-145 [facility] Stool gastrointestinal hemog lobin detection by immunologic methodOrdered By: Pablo Douglas on 03-05-2025 Lower GI hemoglobin IA Ql (Stl) Positive Abnormal [facility] Total proteinOrdered By: Madeleine Paz on 03-05-2025 Protein [Mass/Vol] 6.1 g/dL 5.9-8.4 [facility] White blood cell (WBC) count Ordered By: Jolanta Paz on 03-05-2025 WBC (Bld) [#/Vol] 3.5 10*3/uL Low 4.4-11.0 [facility] Hepatitis A AB, Totalon 02-03 HEPATITIS A,TOT Negative Normal Negative [facility] Comment on above: Result Comment: Comm ent: The HAV total antibody assay detects both IgG and IgM but does not differentiate between them. A negative result suggests susceptibility to infection. A positive result could be due to vaccination, previously resolved infection or active infection. Testing for HAV IgM should be performed if active HAV infection is suspected. [facility] offers profiles that will automatically reflex positive HAV total antibody results to IgM (e.g., panel #[id number] HAV Antibody w/ Rfx). Performed at: [address] [id number] [employer] Engineer: Chance Geronimo PhD, Phone: [phone] Performed By: #### L 500.4050, L503.5510, L100.0100, L3300.0700, L300.3900, L501.6710, L101.9900 #### [facility] [address] [place], [address] Hepatitis B Core Ab Totalon 02-27-2025 HEP B CORE,TOT Negative Normal Negative [facility] Comment on above: Performed By: #### L 500.4050, L503.5510, L100.0100, L3300.0700, L300.3900, L501.6710, L101.9900 #### [facility] [address] [place], [address] L501.5101on 02-27-2025 GGTP 36 IU/L Normal 0-60 [facility] Comment on above: Performed By: #### L 500.4050, L503.5510, L100.0100, L3300.0700, L300.3900, L501.6710, L101.9900 #### [facility] [address] [place], [address] Bone density reportOrdered B y: Antwan Pace on 02-26-2025 Study report Skeletal system [facility] Imaging Services [address] [place] [address] Dexa Bone Density Study MR#: [id number] Acct: [id number] Name: DIAN JANE Rep #: [id number] : [id number] F [id number] From: Mauricio Pace MD PCP: JU Mishra Status: REG CLI Study:Dexa Bone Density Study Date of Exam: 02/26/25 Exam# [id number] Ordering Dr: Ra jacqueline Nayak PROCEDURE: DEXA BONE DENSITY STUDY 02/26/2025 REASON FOR EXAM: F, age 70 y/o . Postmenopausal. TECHNIQUE: DEXA BONE DENSITY STUDY COMPARISON: None FINDINGS: BMD and T-SCORES Lumbar spine: 0.901 g/cm2, T-score -1.0 Levels: L1 through L4 Left femoral neck: 0.634 g/cm2, T-score -1.9 Femoral neck comparison data not recommended for monitoring change. Left total hip: 0.843 g/cm2, T-score -0.8 Right femoral neck: 0.505 g/cm2, T-score -3.1 Femoral neck comparison data not recommended for monitoring change. Right total hip: 0.773 g/cm2, T-score -1.1 The World Health Organization has defined the following categories based on bonedensity: Normal bone density: T-score equal to or greater than -1.0 Osteopenia: T-score between -1.0 and -2.5 Osteoporosis: T-score equal to or less than -2.5 The patient does meet the pharmacological treatment recommendations for prevention of osteoporosis. BD/Dexa Bone Density Study IMPRESSION: OSTEOPOROSIS. Recommend follow-up as clinically warranted. Reading Location: [id number] CC: JU Nayak ~ Vice President Business Development: Signed [facility] Dexa Bone Density Studyon Dexa Bone Density Study [facility] Imaging Services [address] [place] [id number] Dexa Bone Density Study MR#: [id number] Acct: [id number] Name: DIAN JANE Rep #: [id number] : [id number] F [id number] From: Antwan keller MD PCP: JU Mishra Status: REG CLI Study: Dexa Bone Density Study Date of Exam: 02/26/25 Exam# [id number] Ordering Dr: Valdo Nayak PROCEDURE: DEXA BONE DENSITY STUDY 02/26/2025 REASON FOR EXAM: F, age 70 y/o . Postmenopausal. TECHNIQUE: DEXA BONE DENSITY STUDY COMPARISON: None FINDINGS: BMD and T-SCORES Lumbar spine: 0.901 g/cm2, T-score -1.0 Levels: L1 through L4 Left femoral neck: 0.634 g/cm2, T-score -1.9 Femoral neck comparison data not recommended for monitoring change. Left total hip: 0.843 g/cm2, T-score -0.8 Right femoral neck: 0.505 g/cm2, T-score -3.1 Femoral neck comparison data not recommended for monitoring change. Right total hip: 0.773 g/cm2, T-score -1.1 The World Health Organization has defined the following categories based on bone density: Normal bone density: T-score equal to or greater than -1.0 Osteopenia: T-score between -1.0 and -2.5 Osteoporosis: T-score equal to or less than -2.5 The patient does meet the pharmacological treatment recommendations for prevention of osteoporosis. BD/Dexa Bone Density Study IMPRESSION: OSTEOPOROSIS. Recommend follow-up as clinically warranted. Reading Location: [id number] CC: JU Nayak Vice President Business Development: Signed Normal [facility] Ferritinon 02-26-2025 Ferritin [Mass/Vol] 9 ng/mL Low 22-378 [facility] Comment on above: Performed By: #### L 3100.0460, L3100.0300, L3890.6202, L503.6030, L503.6550, L501.5101, L3890.6102, L3890.6301 #### [facility] [address] [place], [place] [address], [address] Gamma glutamyl transferase ( GGT) measurementOrdered By: Vanesa Bonilla on 02-26-2025 Amylase [Catalytic activity/Vol] 36 U/L 0-60 [facility] Hepatitis B Surface Antibody on 02-26-2025 HEP B Surf Ab REAC Normal [facility] Comment on above: Result Comment: <8.5 mIU/mL: Non-Reactive 8.5<= x <11.5 mIU/mL: Indeterminate >=11.5 mIU/mL: Reactive Non Reactive: Inconsistent with immunity less than <10 mIU/mL Reactive: Consistent with immunity greater than or equal to 10 mIU/mL Performed By: #### L 500.4050, L503.5510, L100.0100, L3300.0700, L300.3900, L501.6710, L101.9900 #### [facility] [address] [place], [place], [id number] Hepatitis C Antibodyon 02-26 Hepatitis C Ab Non-Reactive Normal Nonreactive [facility] Comment on above: Result Comment: Reac tive: Presumptive evidence of antibodies to HCV. Follow CDC recommendations for supplemental testing. Non-Reactive: Antibodies to HCV were not detected; does not exclude the possibility of exposure to HCV Reactive Results are presumptive evidence of antibodies to HCV. Follow CDC recommendations for supplemental testing. Order confirmation testing: HCV Quant by PCR testing - HCVPCR #[id number] Non Reactive: < 0.8 Equivocal: >/= 0.8 to < 1.0 Reactive: >/= 1.0 The [facility] requires that a reactive/equivocal HCV antibody result be sent out for confirmation. HCV Quant by PCR testing. Performed By: #### L 500.4050, L503.5510, L100.0100, L3300.0700, L300.3900, L501.6710, L101.9900 #### [facility] [address] [place], [place], [id number] Iron measurement (mass/mass) Ordered By: Vanesa Bonilla on 02-26-2025 Iron (Unsp spec) [Mass/Mass] 16 ug/dL Low 50-170 [facility] Iron+Iron Binding Capacityon 02-26-2025 Iron [Mass/Vol] 16 ug/dL Low 50-170 [facility] Comment on above: Performed By: #### L 3100.0460, L3100.0300, L3890.6202, L503.6030, L503.6550, L501.5101, L3890.6102, L3890.6301 #### [facility] [address] [place], [address] IRON SATURATION 4.0 Low 13-59 [facility] Comment on above: Performed By: #### L 3100.0460, L3100.0300, L3890.6202, L503.6030, L503.6550, L501.5101, L3890.6102, L3890.6301 #### [facility] [address] [place], [address] TIBC 442 ug/dL Normal 250-450 [facility] Comment on above: Performed By: #### L 3100.0460, L3100.0300, L3890.6202, L503.6030, L503.6550, L501.5101, L3890.6102, L3890.6301 #### [facility] [address] [place], [address] UIBC 426 ug/dL Normal 228-428 [facility] Comment on above: Performed By: #### L 3100.0460, L3100.0300, L3890.6202, L503.6030, L503.6550, L501.5101, L3890.6102, L3890.6301 #### [facility] [address] [place], [address] L3890.6102on 02-26-2025 HEP B Surf Ag Non-Reactive Normal Nonreactive [facility] Comment on above: Result Comment: Reac tive: Presumptive evidence of HBV. Repeatedly reactive samples must be confirmed using a neutralization test ([employer] HBsAg Confirmatory Test) Non-Reactive: HBsAg not detected; does not exclude the possibility of exposure to HBV Performed By: #### L 500.4050, L503.5510, L100.0100, L3300.0700, L300.3900, L501.6710, L101.9900 #### [facility] [address] [place], [address] Laboratory - Microbiology an d Antimicrobial susceptibilityOrdered By: Vanesa Bonilla on 02-26-2025 HBV surface Ag Ql (S) Non-Reactive Nonreactive [facility] Comment on above: Reactive: Presumptiv e evidence of HBV. Repeatedly reactive samples must be confirmed using a neutralization test ([employer] HBsAg Confirmatory Test)Non-Reactive: HBsAg not detected; does not exclude the possibility of exposure to HBV No Panel InformationOrdered By: Vanesa Bonilla on 02-26-2025 Unsaturated Iron Binding Capacity 426 ug/dL 228-428 [facility] Serum hepatitis B virus core antibody detectionOrdered By: Vanesa Bonilla on 02-26-2025 HBV core Ab Ql (S) Negative Negative [facility] Serum hepatitis B virus surf darien antibody detectionOrdered By: Vanesa Bonilla on 02-26-2025 HBV surface Ab Ql (S) REAC [facility] Comment on above: <8.5 mIU/mL: Non-Alda ctive8.5<= x <11.5 mIU/mL: Indeterminate>=11.5 mIU/mL: Reactive Non Reactive: Inconsistent with immunity less than <10 mIU/mL Reactive: Consistent with immunity greater than or equal to 10 mIU/mL Serum or plasma ferritin kay surement (mass/volume)Ordered By: Vanesa Bonilla on 02-26-2025 Ferritin [Mass/Vol] 9 ng/mL Low 22-378 [facility] Serum or plasma iron saturat ion measurement (mass fraction)Ordered By: Vanesa Bonilla on 02-26-2025 Iron saturation [Mass fraction] 4.0 % Low 13-59 [facility] Echo Completeon 02-24-2025 Echo Complete [facility] [address] [place] [address] Echo Complete 02/24/25 0806 MR#: [id number] Acct: [id number] Name: DIAN JANE Rep #: [id number] : 1955 70 From: Harpal Cruz MD Attending Dr: Dr. Harpal Cruz MD Status: MICHAEL CASPER Ordering Dr: Harpal Cruz MD Date: [...] cm2 RVDd: 4.6 cm FS: 35.1 % _ asc Aorta Diam: 3.3 cm LAV(MOD-bp): 69.1 ml LVAd ap4: 28.1 cm2 LAV(MOD-bp) Indexed: 33.0 ml/m2 LVLd ap4: 7.4 cm LAV(MOD-sp2): 67.0 ml EDV(MOD-sp4): 84.7 ml LAV(MOD-sp4): 66.2 ml EDV(sp4-el): 90.2 ml LVAs ap4: 15.6 cm2 LVLs ap4: 6.4 cm ESV(MOD-sp4): 31.7 ml ESV(sp4-el): 32.2 ml EF(MOD-sp4): 62.5 % EF(sp4-el): 64.3 % _ SV(MOD-sp4): 53.0 ml SV(MOD-sp2): 57.7 ml LVAd ap2: 27.8 cm2 LVLd ap2: 7.5 cm SI(MOD-sp4): 25.3 ml/m2 SI(MOD-sp2): 27.6 ml/m2 EDV(MOD-sp2): 81.6 ml EDV(sp2-el): 87.0 ml LVAs ap2: 13.7 cm2 LVLs ap2: 6.3 cm ESV(MOD-sp2): 23.8 ml ESV(sp2-el): 25.1 ml EF(MOD-sp2): 70.8 % _ SV(sp4-el): 58.0 ml Ao sinus diam: 2.[address] Junction: 2.2 cm _ LA A4 area: 22.1 cm2 LA dimension(2D): 3.8 cm RA A4 area: 8.7 cm2 _ TAPSE: 2.0 cm Time Measurements MV dec time: 0.15 sec Doppler Measurements Calculations MV E max ana maria: 103.1 cm/sec Lat Peak E' Ana Maria: 16.4 cm/sec Med Peak E' Ana Maria: 10.3 cm/sec MV A max ana maria: 71.1 cm/sec E/E' lat: 6.3 E/E' med: 10.0 MV E/A: 1.4 _ Ao V2 max: 240.5 cm/sec LV V1 max: 136.6 cm/sec MV dec slope: 681.5 cm/sec2 Ao max P.2 mmHg LV V1 max P.5 mmHg Ao V2 mean: 177.9 cm/sec LV V1 mean P.6 mmHg Ao mean P.7 mmHg LV V1 mean: 104.2 cm/sec Ao V2 VTI: 58.8 cm LV V1 VTI: 31.2 cm AV (velocity ratio): 0.53 STANFORD(I,D): 1.6 cm2 STANFORD(V,D): 1.7 cm2 _ SV(LVOT): 93.0 ml PA V2 max: 102.8 cm/sec TR max ana maria: 284.5 cm/sec TR max P.4 mmHg ECHO/Echo Complete Interpretation Summary Normal LV size. The left ventricular ejection fraction is 65 %. Peak aortic valve gradient 23 mmHg. Mean aortic valve gradient 14 mmHg. Normal aortic valve. Pulmonary artery systolic pressure is 36 mmHg. Ordering Physician: Harpal Cruz Referring Physician: Harpal Cruz MD Performed By: Tracy Vásquez RDCS 02/24/25 1456 Date Harpal Cruz MD CC: AUDIO PRODUCTION INSTRUCTOR-C Valdo Nayak; Dr. Harpal Cruz MD Date Dictated: 02/24/25 0806 Date Transcribed: 02/24/251455 Vice President Business Development: Signed Normal [facility] Echocardiogram study reportO rdered By: Harpal Cruz on 02-24-2025 Study report [facility] [address] [place] [address] Echo Complete 02/24/25 0806 MR#: [id number] Acct: [id number] Name: DIAN JANE Rep #:[id number] : 1955 70 From: Harpal Pringle Attending Dr: Dr. Harpal Cruz MD S tatus: REG CLI Ordering Dr: Harpal Cruz MD Date: Location: [facility] Sex: F C Admitted: Reason For Study [...] respiration. Pericardium/Pleural No pericardial effusion. MMode/2D Measurements & Calculations LVIDd: 5.0 cm IVSd: 0.97 cm [...] ml EF(MOD-sp4): 62.5 % EF(sp4-el): 64.3 % _ SV(MOD-sp4): 53.0 ml SV(MOD-sp2): 57.7 ml LVAd [...] MV dec time: 0.15 sec Doppler Measurements & Calculations MV E max ana maria: 103.1 [...] Pulmonary artery systolic pressure is 36 mmHg. Ordering Physician: Harpal Cruz Referring Physician: Harpal Cruz MD Performed By: Tracy Vásquez RDCS 02/24/25 145 Date _ Harpal Cruz MD CC: AUDIO PRODUCTION INSTRUCTORTiffanie Nayak; Dr. Harpal Cruz MD ~ Date Dictated: 02/24/25805 Date Transcribed: 02/24/251455 Vice President Business Development: Signed [facility] Work Phone: 12 Lead EKG performed by [facility] on 01-08-2025 12 Lead EKG performed by [address] [address] 12 Lead EKG performed by [facility] 01/08/25 0845 MR#: [id number] Acct: [id number] Name: DIAN JANE Rep #: [id number] : 1955 69 From: Harpal Cruz MD Attending Dr: Dr. Harpal Cruz MD Status: DEP A MB Ordering Dr: Harpal Cruz MD Date: 01/08/25 Location: [facility] Sex: F C Admitted: [facility]/12 Lead EKG performed by [facility] ECG Report Interpretation --Sinus Rhythm Low voltage in precordial leads. ABNORMAL Electronically signed on 01/14/2025 at 08:17 by Harpal Cruz [employer]bles: [employer] Software Version 8610 01/14/25 Date Harpal Cruz MD CC: JU Valdo Nayak Date Dictated: 01/08/25844 Date Transcribed: 01/08/25844 Vice President Business Development: [place] Signed Normal [facility] Cardiology Visit Reporton Cardiology Visit Report [facility] [address] [place] [address] OFFICE VISIT Date of Service: 01/08/25 MR#: [id number] Acct: [id number] Name: DIAN JANE Rep #: [id number] : 1955 Provider: Dr. Harpal Cruz MD Age/Sex: 69/F Location: [facility] Status: Signed HPI HPI History of Present Illness Details: 69-year-old lady recently relocated here from [place] with a history of mild coronary disease status post previous angioplasty and stenting in 2014 and a more recent history of diabetes mellitus and cirrhosis of the liver with esophageal varices grade 2. She recently had these cauterized again by the plywood layup line core feeder after she was noted to be anemic. [...] Source Monitor Intake Visit Reasons: CAD/EDEMA (ERMA) Car Chaser Required: No Accompanied by: Significant Other Is [...] normocephalic a (more content not included)... [facility] Office Visit (UCWSTR ) -------- DIAN JANE ([id number]) 1955 F Date Time Provider Department 01/06/25 10:30 AM VENKATA DANIELLE [facility] During your visit today, we recorded the following information about you: Temperature Pulse Respiration Blood pressure 98.2 degrees 72/minute 18/minute 110/78 Weight 111.3 kg Venkata Danielle MD 01/06/2025 2:22 PM Signed [facility] Subjective Dian Jane is a 69 year [...] of breath (unchanged), returned from visit to [place] 2 days ago, has been in PT [...] calf [M79.662] Order(s):XR CALCANEUS 2V AXIAL/LAT LEFT [[id number]] Order #: [id number] (more content not included)... Normal [facility] No Panel Informationon 01-06 IMPRESSION: Plantar and posterior calcaneal spurs no acute process seen. Vice President Business Development: PSCAnny Transcribe Date/Time: Jan 06 2025 11:27A Dictated by : KIRA ECHAVARRIA MD This examination was interpreted and the report reviewed and electronically signed by: KRIA ECHAVARRIA MD on Jan 06 2025 11:29AM [facility] DIVISION OF RADIOLOGY Radiology Study observation (narrative) [facility] No Panel InformationOrdered By: Ccf Provider on 01-06-2025 [facility] US DVT LOWER LTon 01-06-2025 US DVT [...] imaged segments of the left lower extremity. Vice President Business Development: [facility] Transcribe Date/Time: Jan 06 2025 2:01P Dictated by : CALI MIRELES MD This examination was interpreted and the report reviewed and electronically signed by: CALI MIRELES MD on Jan 06 2025 2:03PM EST [id number] Normal [facility] US Lower extremity vein - le fton 01-06-2025 IMPRESSION: Negative study for proximal DVT in the left lower extremity. No definite calf DVT in the left lower extremity in their limited visualized segments. Negative study for superficial thrombophlebitis in the imaged segments of the left lower extremity. Vice President Business Development: [employer] Transcribe Date/Time: Jan 06 2025 2:01P Dictated by : CALI MIRELES MD This examination was interpreted and the report reviewed and electronically signed by: CALI MIRELES MD on Jan 06 2025 2:03PM [facility] DIVISION OF RADIOLOGY * * *Final Report* * * DATE OF EXAM: Jan 06 2025 1:59PM [facility] 1006 - US DVT LOWER LT [...] response to augmentation. DIVISION OF RADIOLOGY Provider, Marissa Kelsi [facility] - 01/06/2025 * * *Final Report* * * DATE OF EXAM: Jan 06 2025 1:59PM [facility] 1006 - US DVT LOWER LT [...] imaged segments of the left lower extremity. Vice President Business Development: [facility] Transcribe Date/Time: Jan 06 2025 2:01P Dictated by : CALI MIRELES MD This examination was interpreted and the report reviewed and electronically signed by: CALI MIRELES MD on Jan 06 2025 2:03PM EST [facility] XR ANKLE 3V AP/LAT/OBL LTon 01-06-2025 XR ANKLE 3V AP/LAT/OBL LT * * *Final Report* * * [...] posterior calcaneal spurs no acute process seen. Vice President Business Development: [facility] Transcribe Date/Time: Jan 06 2025 11:27A Dictated by : KIRA ECHAVARRIA MD This examination was interpreted and the report reviewed and electronically signed by: KIRA ECHAVARRIA MD on Jan 06 2025 11:29AM EST [id number] Normal [facility] XR Ankle - left AP and Later [...] about the ankle. DIVISION OF RADIOLOGY Provider, [facility] Kelsi [facility] - 01/06/2025 * * *Final Report* [...] posterior calcaneal spurs no acute process seen. Vice President Business Development: [employer] Transcribe Date/Time: Jan 06 2025 11:27A Dictated by : KIRA ECHAVARRIA MD This examination was interpreted and the report reviewed and electronically signed by: KIRA ECHAVARRIA MD on Jan 06 2025 11:29AM [facility] XR CALCANEUS 2V AXIAL/LAT LT on 01-06-2025 [...] posterior calcaneal spurs no acute process seen. Vice President Business Development: [employer] Transcribe Date/Time: Jan 06 2025 11:27A Dictated by : KIRA ECHAVARRIA MD This examination was interpreted and the report reviewed and electronically signed by: KIRA ECHAVARRIA MD on Jan 06 2025 11:29AM EST [id number] Normal [facility] XR Calcaneus - left 2 Viewso n [...] about the ankle. DIVISION OF RADIOLOGY Provider, [facility] - 01/06/2025 * * *Final Report* [...] posterior calcaneal spurs no acute process seen. Vice President Business Development: [facility] Transcribe Date/Time: Jan 06 2025 11:27A Dictated by : KIRA ECHAVARRIA MD This examination was interpreted and the report reviewed and electronically signed by: KIRA ECHAVARRIA MD on Jan 06 2025 11:29AM EST [facility] Abdomen Limitedon 12-20-2024 Abdomen Limited [facility] Imaging Services [address] [place] [address] Abdomen Limited MR#: [id number] Acct: [id number] Name: DIAN JANE Rep #: [id number] : 1955 F 69 From: Antwan keller MD PCP: JU Mishra Status: REG CLI Study: Abdomen Limited Date of Exam: 12/20/24 Exam# [id number] Ordering Dr: Jolanta Paz PROCEDURE: ABDOMEN LIMITED [...] NO CHOLELITHIASIS OR BILIARY DILATION. Reading Location: [id number] CC: JU Nayak; SHANNON Norman Vice President Business Development: Signed Normal [facility] CBC W/Diff, Automatedon 12-03 PATH REV Reviewed Normal [facility] Comment on above: Result Comment: SEE REPORT IN PATIENT'S EMR AMENDED REPORT 12/17/24 1542 PATH REV previously reported as: January Performed By: #### L 500.4050, L503.5510, L100.0100, L3300.0700, L300.3900, L501.6710, L101.9900 #### [facility] [address] [place], [address] ANCAon 12-13-2024 Atypical pANCA <1:20 Normal Neg:<1:20 [facility] Comment on above: Order Comment: Test( s) 717813-Wivngr, Serum or Plasmawas developed and its performance characteristicsdetermined by [facility]. It has not been cleared or approvedby the Food and Drug Administration. Result Comment: The atypical pANCA pattern has been observed in a significant percentage of patients with ulcerative colitis, primary sclerosing cholangitis and autoimmune hepatitis. Performed By: #### L 500.4050, L503.5510, L100.0100, L3300.0700, L300.3900, L501.6710, L101.9900 #### [facility] [address] [place], [place], [phone] ([phone]) Cytoplasmic Ab <1:20 Normal Neg:<1:20 [facility] Comment on above: Order Comment: Test( s) 663177-Bdppyx, Serum or Plasmawas developed and its performance characteristicsdetermined by [facility]. It has not been cleared or approvedby the Food and Drug Administration. Performed By: #### L 500.4050, L503.5510, L100.0100, L3300.0700, L300.3900, L501.6710, L101.9900 #### [facility] [address] [place], [address] (055) Perinuclear Ab. <1:20 Normal Neg:<1:20 [facility] Comment on above: Order Comment: Test( s) 416501-Vtrmld, Serum or Plasmawas developed and its performance characteristicsdetermined by [facility]. It has not been cleared or approvedby [...] up testing of positive sera with both WV- 3 and MPO-ANCA enzyme immunoassays. As many as 5% serum samples are positive only by EIA. Ref. AM J Clin Pathol 1999;111:507-513. Performed By: #### L 500.4050, L503.5510, L100.0100, L3300.0700, L300.3900, L501.6710, L101.9900 #### [facility] [address] [place], [place], [phone] Angiotensin Convert Enzymeon 04-11-2025 ANGIOT-CONV.ENZ 102 U/L High 14-82 [facility] Comment on above: Order Comment: Test( s) 708847-Nheuxv, Serum or Plasmawas developed and its performance characteristicsdetermined by [facility]. It has not been cleared or approvedby the Food and Drug Administration. Performed By: #### L 500.4050, L503.5510, L100.0100, L3300.0700, L300.3900, L501.6710, L101.9900 #### [facility] [address] [place], [address] Anti-Smooth Muscle ABSon ANTISMOOTH MUSC 12 Units Normal 0-19 [facility] Comment on above: Order Comment: Test( s) 251706-Wehnxb, Serum or Plasmawas developed and its performance characteristicsdetermined by [facility]. It has not been cleared or approvedby the Food and Drug Administration. Result Comment: Nega tive 0 - 19 Weak positive 20 - 30 Moderate to strong positive >30 Actin Antibodies are found in 52-85% of patients with autoimmune hepatitis or chronic active hepatitis and in 22% of patients with primary biliary cirrhosis. Performed By: #### L 500.4050, L503.5510, L100.0100, L3300.0700, L300.3900, L501.6710, L101.9900 #### [facility] [address] [place], [place], [id number] Ceruloplasminon 12-13-2024 CERULOPLASMIN 26.0 mg/dL Normal 19.0-39.0 [facility] Comment on above: Order Comment: Test( s) 724214-Cmcabf, Serum or Plasmawas developed and its performance characteristicsdetermined by [facility]. It has not been cleared or approvedby the Food and Drug Administration. Performed By: #### L 500.4050, L503.5510, L100.0100, L3300.0700, L300.3900, L501.6710, L101.9900 #### [facility] [address] [place], [place], [address] Copper, Serum or Plasmaon COPPER, SERUM 114 ug/dL Normal 80-158 [facility] Comment on above: Order Comment: Test( s) 185850-Obfqsr, Serum or Plasmawas developed and its performance characteristicsdetermined by [facility]. It has not been cleared or approvedby the Food and Drug Administration. Result Comment: Dete ction Limit = 5 Performed at: [address] [id number] Nuclear Logging Engineer: Chance Geronimo PhD, Phone: [phone] Performed at: [address] [id number] Nuclear Logging Engineer: Buddy Navarrete MD, Phone: [phone] Performed By: #### L 500.4050, L503.5510, L100.0100, L3300.0700, L300.3900, L501.6710, L101.9900 #### [facility] [address] [place], [place], [id number] SONJA Comprehensive Panelon SONJA TABLE Comment Normal . [facility] Comment on above: Result Comment: Auto antibody [...] Sm (anti-Harvey) SLE 15 - 30% --------- PRIMARY CARE NURSE Mixed Connective Tissue Disease 95% (U1 nRNP, SLE 30 - 50% anti-ribonucleoprotein) Polymyositis and/or Dermatomyositis 20% --------- Scl-70 (antiDNA Scleroderma (diffuse) 20 - 35% topoisomerase) Crest 13% --------- Sara-1 Polymyositis and/or Dermatomyositis 20 - 40% --------- Centromere B Scleroderma - Crest variant 80% AMENDED REPORT 12/12/241307 COMMENT previously reported as: Test not performed Performed By: #### L 500.4050, L503.5510, L100.0100, L3300.0700, L300.3900, L501.6710, L101.9900 #### [facility] [address] [place], [place], [id number] ANTI-CENT B AB <0.2 Normal 0.0-0.9 [facility] Comment on above: Result Comment: AMENDED REPORT 12/12/241307 ANTI-CENT B previously reported as: Test not performed Performed By: #### L 500.4050, L503.5510, L100.0100, L3300.0700, L300.3900, L501.6710, L101.9900 #### [facility] [address] [place], [place], [id number] ANTI-DNA (DS)AB <1 Normal 0-9 [facility] Comment on above: Result Comment: Nega tive <5 Equivocal 5 - 9 Positive >9 AMENDED REPORT 12/12/241307 dsDNA AB previously reported as: Test not performed Performed By: #### L 500.4050, L503.5510, L100.0100, L3300.0700, L300.3900, L501.6710, L101.9900 #### [facility] [address] [place], [place], [id number] ANTI-SARA-1 <0.2 Normal 0.0-0.9 [facility] Comment on above: Result Comment: AMENDED REPORT 12/12/241307 ANTI-SARA previously reported as: Test not performed Performed By: #### L 500.4050, L503.5510, L100.0100, L3300.0700, L300.3900, L501.6710, L101.9900 #### [facility] [address] [place], [address] ANTI-SS-A < 0.2 Normal 0.0-0.9 [facility] Comment on above: Result Comment: AMENDED REPORT 12/12/241307 Anti-SS-A previously reported as: Test not performed Performed By: #### L 500.4050, L503.5510, L100.0100, L3300.0700, L300.3900, L501.6710, L101.9900 #### [facility] [address] [place], [address] ANTI-SS-B < 0.2 Normal 0.0-0.9 [facility] Comment on above: Result Comment: AMENDED REPORT 12/12/241307 Anti-SS-B previously reported as: Test not performed Performed By: #### L 500.4050, L503.5510, L100.0100, L3300.0700, L300.3900, L501.6710, L101.9900 #### [facility] [address] [place], [address] ANTICHROMATIN <0.2 Normal 0.0-0.9 [facility] Comment on above: Result Comment: AMENDED REPORT 12/12/241307 ANTICHROMATIN previously reported as: Test not performed Performed By: #### L 500.4050, L503.5510, L100.0100, L3300.0700, L300.3900, L501.6710, L101.9900 #### [facility] [address] [place], [address] ANTISCLERODERM <0.2 Normal 0.0-0.9 [facility] Comment on above: Result Comment: AMENDED REPORT 12/12/241307 ANTISCLER previously reported as: Test not performed Performed By: #### L 500.4050, L503.5510, L100.0100, L3300.0700, L300.3900, L501.6710, L101.9900 #### [facility] [address] [place], [address] PRIMARY CARE NURSE Ab 0.3 AI Normal 0.0-0.9 [facility] Comment on above: Result Comment: AMENDED REPORT 12/12/241307 PRIMARY CARE NURSE Ab previously reported as: Test not performed Performed By: #### L 500.4050, L503.5510, L100.0100, L3300.0700, L300.3900, L501.6710, L101.9900 #### [facility] [address] [place], [address] HARVEY Ab <0.2 Normal 0.0-0.9 [facility] Comment on above: Result Comment: AMENDED REPORT 12/12/241307 HARVEY Ab previously reported as: Test not performed Performed By: #### L 500.4050, L503.5510, L100.0100, L3300.0700, L300.3900, L501.6710, L101.9900 #### [facility] [address] [place], [place], [id number] Anti-Mitochondrial ABon 04- 0 ANTIMITOCHON AB <20.0 Normal 0.0-20.0 [facility] Comment on above: Result Comment: Nega tive 0.0 - 20.0 Equivocal 20.1 - 24.9 Positive >24.9 Mitochondrial (M2) Antibodies are found in 90-96% of patients with primary biliary cirrhosis. Performed at: [address] [id number] Nuclear Logging Engineer: Chance Geronimo PhD, Phone: [phone] Performed By: #### L 500.4050, L503.5510, L100.0100, L3300.0700, L300.3900, L501.6710, L101.9900 #### [facility] [place], [address] Absolute lymphocyte countOrd ered By: Jolanta Paz on 12-11-2024 Lymphocytes Auto (Unsp spec) [#/Vol] 1.03 10*3/uL 0.83-4.51 [facility] Absolute neutrophil countOrd ered By: Jolanta Paz on 12-11-2024 Neutrophils (Bld) [#/Vol] 2.0 10*3/uL 2.0-7.7 [facility] Actin IgG QnOrdered By: Delores Paz on 12-11-2024 Anti-Smooth Muscle Antibody 12 Units 0-19 [facility] Comment on above: Negative 0 - 19 Weak positive 20 - 30 Moderate to strong positive >30 Actin Antibodies are found in 52-85% of patients with autoimmune hepatitis or chronic active hepatitis and in 22% of patients with primary biliary cirrhosis. Anion gap in Serum or Plasma Ordered By: Jolanta Paz on 12-11-2024 Anion gap [Moles/Vol] 10 mmol/L 5-15 [facility] Atypical perinuclear antineu trophil cytoplasmic antibodies measurementOrdered By: Jolanta Paz on 12-11-2024 Atypical p-ANCA <1:20 titer Neg:<1:20 [facility] Comment on above: The atypical pANCA p attern has been observed in asignificant percentage of patients with ulcerative colitis,primary sclerosing cholangitis and autoimmune hepatitis. Automated lymphocyte count a s percentage of total leukocytesOrdered By: Jolanta Paz on 12-11-2024 Lymphocytes/100 WBC Auto (Unsp spec) 27.5 % 19-41 [facility] BUN/creatinine ratioOrdered By: Jolanta Paz on 12-11-2024 Urea nitrogen/Creatinine [Mass ratio] 14.6 mg/mg 10-20 [facility] Basophil percentageOrdered B y: Jolanta Paz on 12-11-2024 Basophils/100 WBC (Bld) 1.3 % High 0-1 [facility] Bilirubin, totalOrdered By: Jolanta Paz on 12-11-2024 Bilirubin [Mass/Vol] 0.83 mg/dL 0.00-1.30 [facility] Blood manual differential co mment interpretation (narrative result)Ordered By: Jolanta Paz on 12-11-2024 Manual differential comment Braxton (Bld) [Interp] S [facility] CBC W/Diff, Automatedon HYPOCHROMASIA 1+ Normal [facility] Comment on above: Performed By: #### L 500.4050, L503.5510, L100.0100, L3300.0700, L300.3900, L501.6710, L101.9900 #### [facility] [address] [place], [place], [id number] SMEAR COMMENT S Normal [facility] Comment on above: Performed By: #### L 500.4050, L503.5510, L100.0100, L3300.0700, L300.3900, L501.6710, L101.9900 #### [facility] [address] [place], [place], [id number] Carbon dioxide, total [Moles /volume] in Central venous bloodOrdered By: Jolanta Paz on 12-11-2024 CO2 [Moles/Vol] 20.0 mmol/L Low 21.0-32.0 [facility] Centromere B antibody assayO rdered By: Jolanta Paz on 12-11-2024 Centromere B Antibody <0.2 AI 0.0-0.9 [facility] Comment on above: Previous reported re sult: TNP AIEdited by: MOHIT on 12/12/24:1308 AMENDED REPORT 12/12/24 1308 ANTI-CENT B previously reported as: Test not performed CeruloplasminOrdered By: Madeleine Paz on 12-11-2024 Ceruloplasmin 26.0 mg/dL 19.0-39.0 [facility] Chloride assayOrdered By: Laurence Paz on 12-11-2024 Chloride [Moles/Vol] 108 mmol/L 98-108 [facility] Chromatin antibody assayOrde red By: Jolanta Paz on 12-11-2024 Antichromatin Antibodies <0.2 AI 0.0-0.9 [facility] Comment on above: Previous reported re sult: TNP AIEdited by: MOHIT on 12/12/24:1308 AMENDED REPORT 12/12/24 1308 ANTICHROMATIN previously reported as: Test not performed Comprehensive Metabolic Prof ilon 12-11-2024 Albumin [Mass/Vol] 3.3 g/dL Low 3.4-4.8 [facility] Comment on above: Performed By: #### L 500.4050, L503.5510, L100.0100, L3300.0700, L300.3900, L501.6710, L101.9900 #### [facility] [address] [place], [address] Albumin/Globulin [Mass ratio] 1.2 {ratio} Normal 0.9-2.4 [facility] Comment on above: Performed By: #### L 500.4050, L503.5510, L100.0100, L3300.0700, L300.3900, L501.6710, L101.9900 #### [facility] [address] [place], [address] ALK PHOS 139 U/L High 35-104 [facility] Comment on above: Performed By: #### L 500.4050, L503.5510, L100.0100, L3300.0700, L300.3900, L501.6710, L101.9900 #### [facility] [address] [place], [address] ALT [Catalytic activity/Vol] 19 U/L Normal <=34 [facility] Comment on above: Performed By: #### L 500.4050, L503.5510, L100.0100, L3300.0700, L300.3900, L501.6710, L101.9900 #### [facility] [address] [place], [address] AST [Catalytic activity/Vol] 45 U/L High <=31 [facility] Comment on above: Performed By: #### L 500.4050, L503.5510, L100.0100, L3300.0700, L300.3900, L501.6710, L101.9900 #### [facility] [address] [place], [address] Bilirubin [Mass/Vol] 0.83 mg/dL Normal 0.00-1.30 [facility] Comment on above: Performed By: #### L 500.4050, L503.5510, L100.0100, L3300.0700, L300.3900, L501.6710, L101.9900 #### [facility] [address] [place], [address] BUN/CRE 14.6 RATIO Normal 10-20 [facility] Comment on above: Performed By: #### L 500.4050, L503.5510, L100.0100, L3300.0700, L300.3900, L501.6710, L101.9900 #### [facility] [address] [place], [address] Calcium [Mass/Vol] 8.5 mg/dL Normal 7.6-11.0 [facility] Comment on above: Performed By: #### L 500.4050, L503.5510, L100.0100, L3300.0700, L300.3900, L501.6710, L101.9900 #### [facility] [address] [place], [address] Chloride [Moles/Vol] 108 mmol/L Normal 98-108 [facility] Comment on above: Performed By: #### L 500.4050, L503.5510, L100.0100, L3300.0700, L300.3900, L501.6710, L101.9900 #### [facility] [address] [place], [address] CO2 [Moles/Vol] 20.0 mmol/L Low 21.0-32.0 [facility] Comment on above: Performed By: #### L 500.4050, L503.5510, L100.0100, L3300.0700, L300.3900, L501.6710, L101.9900 #### [facility] [address] [place], [address] Creatinine [Mass/Vol] 0.58 mg/dL Low 0.70-1.20 [facility] Comment on above: Performed By: #### L 500.4050, L503.5510, L100.0100, L3300.0700, L300.3900, L501.6710, L101.9900 #### [facility] [address] [place], [address] GAP 10 Normal 5-15 [facility] Comment on above: Performed By: #### L 500.4050, L503.5510, L100.0100, L3300.0700, L300.3900, L501.6710, L101.9900 #### [facility] [address] [place], [address] GFR/1.73 sq M.predicted among non-blacks MDRD (S/P/Bld) [Vol rate/Area] 98 mL/min/{1.73_m2} Normal >60 [facility] Comment on above: Result Comment: mL/m in/1.73m2 CKD-EPI Creatinine Equation (2020) Performed By: #### L 500.4050, L503.5510, L100.0100, L3300.0700, L300.3900, L501.6710, L101.9900 #### [facility] [address] [place], [address] Globulin (S) [Mass/Vol] 2.8 g/dL Normal 2.2-4.2 [facility] Comment on above: Performed By: #### L 500.4050, L503.5510, L100.0100, L3300.0700, L300.3900, L501.6710, L101.9900 #### [facility] [address] [place], [address] Glucose [Mass/Vol] 105 mg/dL High 70-99 [facility] Comment on above: Performed By: #### L 500.4050, L503.5510, L100.0100, L3300.0700, L300.3900, L501.6710, L101.9900 #### [facility] [address] [place], [address] Potassium [Moles/Vol] 4.0 mmol/L Normal 3.3-5.1 [facility] Comment on above: Performed By: #### L 500.4050, L503.5510, L100.0100, L3300.0700, L300.3900, L501.6710, L101.9900 #### [facility] [address] [place], [address] Sodium [Moles/Vol] 138 mmol/L Normal 133-145 [facility] Comment on above: Performed By: #### L 500.4050, L503.5510, L100.0100, L3300.0700, L300.3900, L501.6710, L101.9900 #### [facility] [address] [place], [address] T PROT 6.1 g/dL Normal 5.9-8.4 [facility] Comment on above: Performed By: #### L 500.4050, L503.5510, L100.0100, L3300.0700, L300.3900, L501.6710, L101.9900 #### [facility] [address] [place], [address] Urea nitrogen [Mass/Vol] 8 mg/dL Normal 4-19 [facility] Comment on above: Performed By: #### L 500.4050, L503.5510, L100.0100, L3300.0700, L300.3900, L501.6710, L101.9900 #### [facility] [address] [place], [place], [address] Copper, serumOrdered By: Madeleine Paz on 12-11-2024 Serum Copper 114 ug/dL 80-158 [facility] Comment on above: Detection Limit = 5P erformed at: [facility] [address] [id number] Director: Chance Geronimo PhD, Phone: [phone] at: [facility] [address] [id number] Director: Buddy Navarrete MD, Phone: [phone] DNA double strand Ab Qn (S)O rdered By: Jolanta Paz on 12-11-2024 Anti-Double Strand DNA Antibody <1 IU/mL 0-9 [facility] Comment on above: Negative <5 Equivoca l 5 - 9 Positive >9Previous reported result: TNP IU/mLEdited by: MOHIT on 12/12/24:1308 AMENDED REPORT 12/12/24 1308 dsDNA AB previously reported as: Test not performed Eosinophil percentageOrdered By: Jolanta Paz on 12-11-2024 Eosinophils/100 WBC (Bld) 4.3 % 0-5 [facility] Erythrocyte distribution wid th (RBC) [Ratio]Ordered By: Jolanta Paz on 12-11-2024 Erythrocyte distribution width (RBC) [Entitic vol] 60.7 fL High 35.1-43.9 [facility] Erythrocyte distribution wid th ratioOrdered By: Jolanta Paz on 12-11-2024 Erythrocyte distribution width (RBC) [Ratio] 23.3 % High 11.6-14.6 [facility] Erythrocyte distribution wid th standard deviationOrdered By: Jolanta Paz on 12-11-2024 Erythrocyte distribution width (RBC) [Ratio] 60.7 fl High 35.1-43.9 [facility] GFR/1.73 sq M.predicted yadi g non-blacks MDRD (S/P/Bld) [Vol rate/Area]Ordered By: Jolanta Paz on 12-11-2024 Estimated GFR (MDRD) Non-Af Amer 98 >60 [facility] Comment on above: mL/min/1.73m2 CKD-EP I Creatinine Equation (2020) Gastroenterology Visit Repor ton 12-11-2024 Gastroenterology Visit Report [facility] [address] [place] [address] OFFICE VISIT Date of Service: 12/11/24 MR#: [id number] Acct: [id number] Name: DIAN JANE Rep #: [id number] : 1955 Provider: SHANNON Norman Age/Sex: 69/F Location: [facility] Status: Signed Intake Vital Signs 12/05/24 16:42 [...] her lower abdomen but otherwise no complaints. [facility] Medical History Bilateral carotid artery disease SEVERINO [...] the office today for f/u. I established 4.2.25 with PMHx of Cirrhosis diagnosed in [place]. Pt recently moved to [place] and wanting to establish care. Last EGD in Jun 2024 with esophageal varices. Colonoscopy at the same time. Pt also with heartburn and on PPI for years. She has a daily bm sometimes loose and sometimes formed Biochemical work up 4.10.29: WBC 2.8, Hgb 5.7, PT 18.7, INR 1.5, AST 39, alp 142, AFP 9.4 *Labs ordered and Hgb of 5.6. Pt was called and recommended she go to the ED [facility] admission for low hemoglobin 4.2.25-4. Started on nadolol for esophageal varices. Transfused and Hgb on discharge 8.3. EGD 12.05.24: - Grade II esophageal varices. - Portal hypertensive gastropathy. - Four bleeding angiodysplastic lesions in the duodenum. Treated with a heater probe. - Two angiodysplastic lesions in the jejunum. Treated with a heater probe. - No specimens collected. CT abd/pelvis 12.04.24: Ascites. Findings suggestive of cirrhosis of the liver with evidence of splenomegaly. Sigmoid diverticulosis. OV 12.11.24 Pt feeling much better since her hospitalization. [...] and comfortable (more content not included)... Normal [facility] Glomerular filtration rate ( GFR) estimation/1.73 sq m using serum, plasma, or whole bOrdered By: Jolanta Paz on 12-11-2024 GFR/1.73 sq M.predicted among non-blacks MDRD (S/P/Bld) [Vol rate/Area] 98 mL/min/{1.73_m2} >60 [facility] Comment on above: mL/min/1.73m2 CKD-EP I Creatinine Equation (2020) Hematocrit Auto (Bld) [Volum e fraction]Ordered By: Jolanta Paz on 12-11-2024 Hematocrit (Bld) [Volume fraction] 28.0 % Low 37-47 [facility] Hemoglobin A1con 12-11-2024 HbA1c (Bld) [Mass fraction] 5.1 % Low <=5.6 [facility] Comment on above: Performed By: #### L 500.4050, L503.5510, L100.0100, L3300.0700, L300.3900, L501.6710, L101.9900 #### [facility] [address] [place], [address] Hemoglobin A1c percentageOrd ered By: Jolanta Paz on 12-11-2024 HbA1c (Bld) [Mass fraction] 5.1 % Low >5.7 [facility] Hemoglobin measurementOrdere d By: Jolanta Paz on 12-11-2024 Hemoglobin (Bld) [Mass/Vol] 8.4 g/dL Low 12.0-15.0 [facility] Hypochromatic red blood cell detectionOrdered By: Jolanta Paz on 12-11-2024 Hypochromia Ql (Bld) 1+ [facility] Hypochromia Ql (Bld)Ordered By: Jolanta Paz on 12-11-2024 Hypochromasia 1+ [facility] Immature granulocytes/100 WB C Auto (Bld)Ordered By: Jolanta Paz on 12-11-2024 Immature granulocytes/100 WBC (Bld) 0.300 % 0.0-0.9 [facility] Comment on above: IG% - Immature Granu locytes (promyelocytes, myelocytes and metamyelocytes) > 1% indicates that a LEFT SHIFT is Present. International normalized rat io (INR) calculationOrdered By: Jolatna Paz on 12-11-2024 INR Coag (Bld) [Relative time] 1.5 {INR} [facility] Sara-1 antibody assayOrdered B y: Jolanta Paz on 12-11-2024 SARA-1 Antibody <0.2 AI 0.0-0.9 [facility] Comment on above: Previous reported re sult: TNP AIEdited by: MOHIT on 12/12/24:1308 AMENDED REPORT 12/12/24 1308 ANTI-SARA previously reported as: Test not performed Laboratory - Chemistry and C hemistry - challengeOrdered By: Jolanta Paz on 12-11-2024 AST [Catalytic activity/Vol] 45 U/L High <32 [facility] Lymphocytes Auto (Unsp spec) [#/Vol]Ordered By: Jolanta Paz on 12-11-2024 Lymphocytes (Bld) [#/Vol] 1.03 10*3/uL 0.83-4.51 [facility] Lymphocytes/100 WBC Auto (Un sp spec)Ordered By: Jolanta Paz on 12-11-2024 Lymphocytes/100 WBC (Bld) 27.5 % 19-41 [facility] MCV (mean corpuscular volume ) determinationOrdered By: Jolanta Paz on 12-11-2024 MCV (RBC) [Entitic vol] 73.5 fL Low 81-99 [facility] Manual differential comment Braxton (Bld) [Interp]Ordered By: Jolanta Paz on 12-11-2024 Differential Comment S [facility] Mean corpuscular hemoglobin (MCH) determinationOrdered By: Jolanta Paz on 12-11-2024 MCH (RBC) [Entitic mass] 22.0 pg Low 27.0-32.0 [facility] Mean corpuscular hemoglobin concentration (MCHC) determinationOrdered By: Jolanta Paz on 12-11-2024 MCHC (RBC) [Mass/Vol] 30.0 g/dL Low 32-36 [facility] Mean platelet volume determi nationOrdered By: Jolanta Paz on 12-11-2024 Platelet mean volume (Bld) [Entitic vol] 10.7 fL 6.2-12.0 [facility] Mitochondria Ab Ql (S)Ordere d By: Jolanta Paz on 12-11-2024 Anti-Mitochondrial Antibody <20.0 Units 0.0-20.0 [facility] Comment on above: Negative 0.0 - 20.0 Equivocal 20.1 - 24.9 Positive >24.9Mitochondrial (M2) Antibodies are found in 90-96% ofpatients with primary biliary cirrhosis.Performed at: [address], [place], [place] [id number] Director: Chance Geronimo PhD, Phone: [phone] Monocyte percentageOrdered B y: Jolanta Paz on 12-11-2024 Monocytes/100 WBC (Bld) 12.6 % High 0-10 [facility] Neutrophil cytoplasmic Ab.cl assic Qn (S)Ordered By: Jolanta Paz on 12-11-2024 Cytoplasmic ANCA (c-ANCA) Antibody <1:20 titer Neg:<1:20 [facility] Neutrophil cytoplasmic Ab.pe rinuclear IF (S) [Titer]Ordered By: Jolanta Paz on 12-11-2024 Perinuclear ANCA (p-ANCA) Antibody <1:20 titer Neg:<1:20 [facility] Comment on above: The presence of posi tive fluorescence exhibiting P-ANCA orC-ANCA patterns alone is not specific for the diagnosis ofWegener's Granulomatosis (WG) or microscopic polyangiitis.Decisions about treatment should not be based solely onANCA IFA results. The International ANCA Group Consensusrecommends follow up testing of positive sera with both WV-3 and MPO-ANCA enzyme immunoassays. As many as 5% serumsamples are positive only by EIA. Ref. AM J Clin Jvfofq6694;111:507-513. Neutrophil percentageOrdered By: Jolanta Paz on 12-11-2024 Neutrophils/100 WBC (Bld) 54.0 % 47-70 [facility] Nucleated red blood cell per centageOrdered By: Jolanta Paz on 12-11-2024 Nucleated RBC/100 WBC (Bld) [Ratio] 0 % 0-5 [facility] Platelet countOrdered By: Laurence Paz on 12-11-2024 Platelets (Bld) [#/Vol] 109 10*3/uL Low 150-450 [facility] Potassium (Unsp spec) [Mass/ Vol]Ordered By: Jolanta Paz on 12-11-2024 Potassium [Moles/Vol] 4.0 mmol/L 3.3-5.1 [facility] Potassium measurement (mass/ volume)Ordered By: Jolanta Paz on 12-11-2024 Potassium (Unsp spec) [Mass/Vol] 4.0 mmol/L 3.3-5.1 [facility] Prothrombin Time w/INRon INR Coag (PPP) [Relative time] 1.5 {INR} Normal [facility] Comment on above: Performed By: #### L 500.4050, L503.5510, L100.0100, L3300.0700, L300.3900, L501.6710, L101.9900 #### [facility] [address] [place], [place], [id number] PT Coag (PPP) [Time] 17.9 s High 11.7-14.9 [facility] Comment on above: Performed By: #### L 500.4050, L503.5510, L100.0100, L3300.0700, L300.3900, L501.6710, L101.9900 #### [facility] [address] [place], [place], [id number] Prothrombin timeOrdered By: Jolanta Paz on 12-11-2024 PT Coag (PPP) [Time] 17.9 s High 11.7-14.9 [facility] RBC Auto (Bld) [#/Vol]Ordere d By: Jolanta Paz on 12-11-2024 RBC (Bld) [#/Vol] 3.81 10*6/uL Low 4.2-5.4 [facility] PRIMARY CARE NURSE abOrdered By: Jolanta raysolexus on 12-11-2024 PRIMARY CARE NURSE Antibody 0.3 AI 0.0-0.9 [facility] Comment on above: Previous reported re sult: TNP AIEdited by: MOHIT on 12/12/24:1308 AMENDED REPORT 12/12/24 1308 PRIMARY CARE NURSE Ab previously reported as: Test not performed SCL-70 extractable nuclear A b Qn (S)Ordered By: Jolanta Paz on 12-11-2024 Scl-70 (Scleroderma) Antibody <0.2 AI 0.0-0.9 [facility] Comment on above: Previous reported re sult: TNP AIEdited by: MOHIT on 12/12/24:1308 AMENDED REPORT 12/12/24 1308 ANTISCLER previously reported as: Test not performed SS-A IgG antibody assayOrder ed By: Jolanta Paz on 12-11-2024 SS-A/Ro IgG Antibody < 0.2 AI 0.0-0.9 [facility] Comment on above: Previous reported re sult: TNP AIEdited by: MOHIT on 12/12/24:1308 AMENDED REPORT 12/12/24 130 Anti-SS-A previously reported as: Test not performed SS-B IgG antibody assayOrder ed By: Jolanta Paz on 12-11-2024 SS-B/La IgG Antibody < 0.2 AI 0.0-0.9 [facility] Comment on above: Previous reported re sult: TNP AIEdited by: MOHIT on 12/12/24:1308 AMENDED REPORT 12/12/24 130 Anti-SS-B previously reported as: Test not performed Serum DNA double strand anti body assay (units/volume)Ordered By: Jolanta Paz on 12-11-2024 DNA double strand Ab Qn (S) [IU]/mL 0-9 [facility] Comment on above: Negative <5 Equivoca l 5 - 9 Positive >9Previous reported result: TNP IU/mLEdited by: MOHIT on 12/12/24:1308 AMENDED REPORT 12/12/24 130 dsDNA AB previously reported as: Test not performed Serum Scl-70 antibody assay (units/volume)Ordered By: Jolanta Paz on 12-11-2024 SCL-70 extractable nuclear Ab Qn (S) <0.2 AI 0.0-0.9 [facility] Comment on above: Previous reported re sult: TNP AIEdited by: MOHIT on 12/12/24:1308 AMENDED REPORT 12/12/24 130 ANTISCLER previously reported as: Test not performed Serum classic neutrophil cyt oplasmic antibody assay (units/volume)Ordered By: Jolanta Paz on 12-11-2024 Neutrophil cytoplasmic Ab.classic Qn (S) <1:20 titer Neg:<1:20 [facility] Serum creatinine measurement (mass/volume)Ordered By: Jolanta Paz on 12-11-2024 Creatinine [Mass/Vol] 0.58 mg/dL Low 0.70-1.20 [facility] Serum globulin measurementOr dered By: Jolanta Paz on 12-11-2024 Globulin (S) [Mass/Vol] 2.8 g/dL 2.2-4.2 [facility] Serum glucose measurement (m ass/volume)Ordered By: Jolanta Paz on 12-11-2024 Glucose [Mass/Vol] 105 mg/dL High 70-99 [facility] Serum mitochondria antibody detectionOrdered By: Jolanta Paz on 12-11-2024 Mitochondria Ab Ql (S) <20.0 Units 0.0-20.0 [facility] Comment on above: Negative 0.0 - 20.0 Equivocal 20.1 - 24.9 Positive >24.9Mitochondrial (M2) Antibodies are found in 90-96% ofpatients with primary biliary cirrhosis.Performed at: [facility] [id number] Director: Chance Geronimo PhD, Phone: [phone] Serum or plasma actin IgG an tibody assay (units/volume)Ordered By: Jolanta Paz on 12-11-2024 Actin IgG Qn 12 Units 0-19 [facility] Comment on above: Negative 0 - 19 Weak positive 20 - 30 Moderate to strong positive >30 Actin Antibodies are found in 52-85% of patients with autoimmune hepatitis or chronic active hepatitis and in 22% of patients with primary biliary cirrhosis. Serum or plasma alanine morocho otransferase (ALT) measurementOrdered By: Jolanta Paz on 12-11-2024 ALT [Catalytic activity/Vol] 19 U/L <35 [facility] Serum or plasma albumin harmony urement (mass/volume)Ordered By: Jolanta Paz on 12-11-2024 Albumin [Mass/Vol] 3.3 g/dL Low 3.4-4.8 [facility] Serum or plasma albumin/glob ulin mass ratioOrdered By: Jolanta Paz on 12-11-2024 Albumin/Globulin [Mass ratio] 1.2 {ratio} 0.9-2.4 [facility] Serum or plasma alkaline chacha sphatase measurementOrdered By: Jolanta Paz on 12-11-2024 ALP [Catalytic activity/Vol] 139 U/L High 35-104 [facility] Serum or plasma angiotensin converting enzyme measurement (enzymatic activity/volume)Ordered By: Jolanta Paz on 12-11-2024 Angiotensin converting enzyme [Catalytic activity/Vol] 102 U/L High 14-82 [facility] Serum or plasma calcium harmony urement (mass/volume)Ordered By: Jolanta Paz on 12-11-2024 Calcium [Mass/Vol] 8.5 mg/dL 7.6-11.0 [facility] Serum or plasma urea nitroge n measurement (mass/volume)Ordered By: Jolanta Paz on 12-11-2024 Urea nitrogen [Mass/Vol] 8 mg/dL 4-19 [facility] Serum perinuclear neutrophil cytoplasmic antibody titer by immunofluorescenceOrdered By: Jolanta Paz on 12-11-2024 Neutrophil cytoplasmic Ab.perinuclear IF (S) [Titer] <1:20 titer Neg:<1:20 [facility] Comment on above: The presence of posi tive fluorescence exhibiting P-ANCA orC-ANCA patterns alone is not specific for the diagnosis ofWegener's Granulomatosis (WG) or microscopic polyangiitis.Decisions about treatment should not be based solely onANCA IFA results. The [employer] ANCA Group Consensusrecommends follow up testing of positive sera with both WV-3 and MPO-ANCA enzyme immunoassays. As many as 5% serumsamples are positive only by EIA. Ref. AM J Clin [id number];111:507-513. Harvey antibody assayOrdered By: Jolanta Paz on 12-11-2024 SM Antibody <0.2 AI 0.0-0.9 [facility] Comment on above: Previous reported re sult: TNP AIEdited by: MOHIT on 12/12/24:1308 AMENDED REPORT 12/12/24 1308 HARVEY Ab previously reported as: Test not performed Sodium levelOrdered By: Delores Paz on 12-11-2024 Sodium [Moles/Vol] 138 mmol/L 133-145 [facility] Total proteinOrdered By: Madeleine chris Brandi on 12-11-2024 Protein [Mass/Vol] 6.1 g/dL 5.9-8.4 [facility] White blood cell (WBC) count Ordered By: Jolantaledy Paz on 12-11-2024 WBC (Bld) [#/Vol] 3.7 10*3/uL Low 4.4-11.0 [facility] CBC W/Diff, Automatedon 04-0 PATH REV N/A Normal [facility] Comment on above: Result Comment: AMENDED REPORT 12/08/24 1437 PATH REV previously reported as: January Performed By: #### L 500.4050, L503.5510, L100.0100, L3300.0700, L300.3900, L501.6710, L101.9900 #### [facility] [address] [place], [place], [id number] [phone] Basic Metabolic Profile (BMP )on 12-07-2024 BUN Normal 4-19 [facility] Comment on above: Result Comment: Canc elled via OM: Order cancelled - Patient discharged Performed By: #### L 500.4050, L503.5510, L100.0100, L3300.0700, L300.3900, L501.6710, L101.9900 #### [facility] [address] [place], [place], [id number] [phone] BUN/CRE Normal 10-20 [facility] Comment on above: Result Comment: Canc elled via OM: Order cancelled - Patient discharged Performed By: #### L 500.4050, L503.5510, L100.0100, L3300.0700, L300.3900, L501.6710, L101.9900 #### [facility] [address] [place], [place], [phone] Calcium Normal 7.6-11.0 [facility] Comment on above: Result Comment: Canc elled via OM: Order cancelled - Patient discharged Performed By: #### L 500.4050, L503.5510, L100.0100, L3300.0700, L300.3900, L501.6710, L101.9900 #### [facility] [address] [place], [address] CL Normal 98-108 [facility] Comment on above: Result Comment: Canc elled via OM: Order cancelled - Patient discharged Performed By: #### L 500.4050, L503.5510, L100.0100, L3300.0700, L300.3900, L501.6710, L101.9900 #### [facility] [address] [place], [address] CO2 Normal 21.0-32.0 [facility] Comment on above: Result Comment: Canc elled via OM: Order cancelled - Patient discharged Performed By: #### L 500.4050, L503.5510, L100.0100, L3300.0700, L300.3900, L501.6710, L101.9900 #### [facility] [address] [place], [address] CREAT,SERUM Normal 0.70-1.20 [facility] Comment on above: Result Comment: Canc elled via OM: Order cancelled - Patient discharged Performed By: #### L 500.4050, L503.5510, L100.0100, L3300.0700, L300.3900, L501.6710, L101.9900 #### [facility] [address] [place], [address] eGFR Normal >60 [facility] Comment on above: Result Comment: Canc elled via OM: Order cancelled - Patient discharged Performed By: #### L 500.4050, L503.5510, L100.0100, L3300.0700, L300.3900, L501.6710, L101.9900 #### [facility] [address] [place], [address] GAP Normal 5-15 [facility] Comment on above: Result Comment: Canc elled via OM: Order cancelled - Patient discharged Performed By: #### L 500.4050, L503.5510, L100.0100, L3300.0700, L300.3900, L501.6710, L101.9900 #### [facility] [address] [place], [address] GLU Normal 70-99 [facility] Comment on above: Result Comment: Canc elled via OM: Order cancelled - Patient discharged Performed By: #### L 500.4050, L503.5510, L100.0100, L3300.0700, L300.3900, L501.6710, L101.9900 #### [facility] [address] [place], [address] Potassium Normal 3.3-5.1 [facility] Comment on above: Result Comment: Canc elled via OM: Order cancelled - Patient discharged Performed By: #### L 500.4050, L503.5510, L100.0100, L3300.0700, L300.3900, L501.6710, L101.9900 #### [facility] [address] [place], [address] Basic Metabolic Profile (BMP) Normal 133-145 [facility] Comment on above: Result Comment: Canc elled via OM: Order cancelled - Patient discharged Performed By: #### L 500.4050, L503.5510, L100.0100, L3300.0700, L300.3900, L501.6710, L101.9900 #### [facility] [address] [place], [address] CBC W/Diff, Automatedon 04-0 5-2024 Absolute Neut Normal 2.0-7.7 [facility] Comment on above: Result Comment: Canc elled via OM: Order cancelled - Patient discharged Performed By: #### L 500.4050, L503.5510, L100.0100, L3300.0700, L300.3900, L501.6710, L101.9900 #### [facility] [address] [place], [address] HCT Normal 37-47 [facility] Comment on above: Result Comment: Canc elled via OM: Order cancelled - Patient discharged Performed By: #### L 500.4050, L503.5510, L100.0100, L3300.0700, L300.3900, L501.6710, L101.9900 #### [facility] [address] [place], [address] HGB Normal 12.0-15.0 [facility] Comment on above: Result Comment: Canc elled via OM: Order cancelled - Patient discharged Performed By: #### L 500.4050, L503.5510, L100.0100, L3300.0700, L300.3900, L501.6710, L101.9900 #### [facility] [address] [place], [address] MCH Normal 27.0-32.0 [facility] Comment on above: Result Comment: Canc elled via OM: Order cancelled - Patient discharged Performed By: #### L 500.4050, L503.5510, L100.0100, L3300.0700, L300.3900, L501.6710, L101.9900 #### [facility] [address] [place], [address] MCHC Normal 32-36 [facility] Comment on above: Result Comment: Canc elled via OM: Order cancelled - Patient discharged Performed By: #### L 500.4050, L503.5510, L100.0100, L3300.0700, L300.3900, L501.6710, L101.9900 #### [facility] [address] [place], [address] MCV Normal 81-99 [facility] Comment on above: Result Comment: Canc elled via OM: Order cancelled - Patient discharged Performed By: #### L 500.4050, L503.5510, L100.0100, L3300.0700, L300.3900, L501.6710, L101.9900 #### [facility] [address] [place], [address] NEUT% Normal 47-70 [facility] Comment on above: Result Comment: Canc elled via OM: Order cancelled - Patient discharged Performed By: #### L 500.4050, L503.5510, L100.0100, L3300.0700, L300.3900, L501.6710, L101.9900 #### [facility] [address] [place], [address] PLT Normal 150-450 [facility] Comment on above: Result Comment: Canc elled via OM: Order cancelled - Patient discharged Performed By: #### L 500.4050, L503.5510, L100.0100, L3300.0700, L300.3900, L501.6710, L101.9900 #### [facility] [address] [place], [address] RBC Normal 4.2-5.4 [facility] Comment on above: Result Comment: Canc elled via OM: Order cancelled - Patient discharged Performed By: #### L 500.4050, L503.5510, L100.0100, L3300.0700, L300.3900, L501.6710, L101.9900 #### [facility] [address] [place], [address] RDW CV Normal 11.6-14.6 [facility] Comment on above: Result Comment: Canc elled via OM: Order cancelled - Patient discharged Performed By: #### L 500.4050, L503.5510, L100.0100, L3300.0700, L300.3900, L501.6710, L101.9900 #### [facility] [address] [place], [address] RDW SD Normal 35.1-43.9 [facility] Comment on above: Result Comment: Canc elled via OM: Order cancelled - Patient discharged Performed By: #### L 500.4050, L503.5510, L100.0100, L3300.0700, L300.3900, L501.6710, L101.9900 #### [facility] [address] [place], [address] WBC Normal 4.4-11.0 [facility] Comment on above: Result Comment: Canc elled via OM: Order cancelled - Patient discharged Performed By: #### L 500.4050, L503.5510, L100.0100, L3300.0700, L300.3900, L501.6710, L101.9900 #### [facility] [address] [place], [address] Absolute lymphocyte countOrd ered By: Hamzah Aguirre on 12-06-2024 Lymphocytes Auto (Unsp spec) [#/Vol] 1.19 10*3/uL 0.83-4.51 [facility] Absolute neutrophil countOrd ered By: Hamzah Aguirre on 12-06-2024 Neutrophils (Bld) [#/Vol] 2.0 10*3/uL 2.0-7.7 [facility] Anion gap in Serum or Plasma Ordered By: Hamzah Aguirre on 12-06-2024 Anion gap [Moles/Vol] 9 mmol/L 5-15 [facility] Automated lymphocyte count a s percentage of total leukocytesOrdered By: Hamzah Aguirre on 12-06-2024 Lymphocytes/100 WBC Auto (Unsp spec) 30.3 % 19-41 [facility] BUN/creatinine ratioOrdered By: Hamzah Aguirre on 12-06-2024 Urea nitrogen/Creatinine [Mass ratio] 11.4 mg/mg - [facility] Basic Metabolic Profile (BMP )on 12-06-2024 BUN/CRE 11.4 RATIO Normal 06-23 [facility] Comment on above: Performed By: #### L 500.4050, L503.5510, L100.0100, L3300.0700, L300.3900, L501.6710, L101.9900 #### [facility] [address] [place], [address] Calcium [Mass/Vol] 8.5 mg/dL Normal 7.6-11.0 [facility] Comment on above: Performed By: #### L 500.4050, L503.5510, L100.0100, L3300.0700, L300.3900, L501.6710, L101.9900 #### [facility] [address] [place], [address] Chloride [Moles/Vol] 109 mmol/L High 98-108 [facility] Comment on above: Performed By: #### L 500.4050, L503.5510, L100.0100, L3300.0700, L300.3900, L501.6710, L101.9900 #### [facility] [address] [place], [address] CO2 [Moles/Vol] 20.3 mmol/L Low 21.0-32.0 [facility] Comment on above: Performed By: #### L 500.4050, L503.5510, L100.0100, L3300.0700, L300.3900, L501.6710, L101.9900 #### [facility] [address] [place], [address] Creatinine [Mass/Vol] 0.63 mg/dL Low 0.70-1.20 [facility] Comment on above: Performed By: #### L 500.4050, L503.5510, L100.0100, L3300.0700, L300.3900, L501.6710, L101.9900 #### [facility] [address] [place], [address] ECRCL 81.20 ml/min Normal 50-250 [facility] Comment on above: Performed By: #### L 500.4050, L503.5510, L100.0100, L3300.0700, L300.3900, L501.6710, L101.9900 #### [facility] [address] [place], [address] GAP 9 Normal 5-15 [facility] Comment on above: Performed By: #### L 500.4050, L503.5510, L100.0100, L3300.0700, L300.3900, L501.6710, L101.9900 #### [facility] [address] [place], [address] GFR/1.73 sq M.predicted among non-blacks MDRD (S/P/Bld) [Vol rate/Area] 96 mL/min/{1.73_m2} Normal >60 [facility] Comment on above: Result Comment: mL/m in/1.73m2 CKD-EPI Creatinine Equation (2020) Performed By: #### L 500.4050, L503.5510, L100.0100, L3300.0700, L300.3900, L501.6710, L101.9900 #### [facility] [address] [place], [address] Glucose [Mass/Vol] 95 mg/dL Normal 70-99 [facility] Comment on above: Performed By: #### L 500.4050, L503.5510, L100.0100, L3300.0700, L300.3900, L501.6710, L101.9900 #### [facility] [address] [place], [address] Potassium [Moles/Vol] 4.1 mmol/L Normal 3.3-5.1 [facility] Comment on above: Performed By: #### L 500.4050, L503.5510, L100.0100, L3300.0700, L300.3900, L501.6710, L101.9900 #### [facility] [address] [place], [address] Sodium [Moles/Vol] 139 mmol/L Normal 133-145 [facility] Comment on above: Performed By: #### L 500.4050, L503.5510, L100.0100, L3300.0700, L300.3900, L501.6710, L101.9900 #### [facility] [address] [place], [place], [address] [phone] Urea nitrogen [Mass/Vol] 7 mg/dL Normal 4-19 [facility] Comment on above: Performed By: #### L 500.4050, L503.5510, L100.0100, L3300.0700, L300.3900, L501.6710, L101.9900 #### [facility] [address] [place], [address] Basophil percentageOrdered B y: Hamzah Aguirre on 12-06-2024 Basophils/100 WBC (Bld) 1.0 % 0-1 [facility] Blood polychromasia detectio n by light microscopyOrdered By: Hamzah Aguirre on 12-06-2024 Polychromasia LM Ql (Bld) 1+ [facility] CBC W/Diff, Automatedon 04-0 Anisocytosis Ql (Bld) 2+ Normal [facility] Comment on above: Performed By: #### L 500.4050, L503.5510, L100.0100, L3300.0700, L300.3900, L501.6710, L101.9900 #### [facility] [address] [place], [address] OVALOCYTE 1+ Normal [facility] Comment on above: Performed By: #### L 500.4050, L503.5510, L100.0100, L3300.0700, L300.3900, L501.6710, L101.9900 #### [facility] [address] [place], [address] PLT EST SLT DEC Normal ADEQ [facility] Comment on above: Performed By: #### L 500.4050, L503.5510, L100.0100, L3300.0700, L300.3900, L501.6710, L101.9900 #### [facility] [address] [place], [address] POLYCHROMASIA 1+ Normal [facility] Comment on above: Performed By: #### L 500.4050, L503.5510, L100.0100, L3300.0700, L300.3900, L501.6710, L101.9900 #### [facility] [address] [place], [address] Carbon dioxide, total [Moles /volume] in Central venous bloodOrdered By: Hamzah Aguirre on 12-06-2024 CO2 [Moles/Vol] 20.3 mmol/L Low 21.0-32.0 [facility] Chloride assayOrdered By: Thierno Aguirre on 12-06-2024 Chloride [Moles/Vol] 109 mmol/L High 98-108 [facility] Eosinophil percentageOrdered By: Hamzah Aguirre on 12-06-2024 Eosinophils/100 WBC (Bld) 4.3 % 0-5 [facility] Erythrocyte distribution wid th (RBC) [Ratio]Ordered By: Hamzah Aguirre on 12-06-2024 Erythrocyte distribution width (RBC) [Entitic vol] 56.1 fL High 35.1-43.9 [facility] Erythrocyte distribution wid th ratioOrdered By: Hamzah Aguirre on 12-06-2024 Erythrocyte distribution width (RBC) [Ratio] 21.5 % High 11.6-14.6 [facility] Erythrocyte distribution wid th standard deviationOrdered By: Hamzah Aguirre on 12-06-2024 Erythrocyte distribution width (RBC) [Ratio] 56.1 fl High 35.1-43.9 [facility] Estimation of creatinine jose aranceOrdered By: Hamzah Aguirre on 12-06-2024 Estimated Creatinine Clearance Calc 81.20 ml/min 50-250 [facility] GFR/1.73 sq M.predicted yadi g non-blacks MDRD (S/P/Bld) [Vol rate/Area]Ordered By: Hamzah Aguirre on 12-06-2024 Estimated GFR (MDRD) Non-Af Amer 96 >60 [facility] Comment on above: mL/min/1.73m2 CKD-EP I Creatinine Equation (2020) Glomerular filtration rate ( GFR) estimation/1.73 sq m using serum, plasma, or whole bOrdered By: Hamzah Aguirre on 12-06-2024 GFR/1.73 sq M.predicted among non-blacks MDRD (S/P/Bld) [Vol rate/Area] 96 mL/min/{1.73_m2} >60 [facility] Comment on above: mL/min/1.73m2 CKD-EP I Creatinine Equation (2020) Hematocrit Auto (Bld) [Volum e fraction]Ordered By: Hamzah Aguirre on 12-06-2024 Hematocrit (Bld) [Volume fraction] 28.0 % Low 37-47 [facility] Hemoglobin measurementOrdere d By: Hamzah Aguirre on 12-06-2024 Hemoglobin (Bld) [Mass/Vol] 8.3 g/dL Low 12.0-15.0 [facility] Immature granulocytes/100 WB C Auto (Bld)Ordered By: Hamzah Aguirre on 12-06-2024 Immature granulocytes/100 WBC (Bld) 0.300 % 0.0-0.9 [facility] Comment on above: IG% - Immature Granu locytes (promyelocytes, myelocytes and metamyelocytes) > 1% indicates that a LEFT SHIFT is Present. Laboratory - Hematology and Cell countsOrdered By: Hamzah Aguirre on 12-06-2024 Anisocytosis Ql (Bld) 2+ [facility] Lymphocytes Auto (Unsp spec) [#/Vol]Ordered By: Hamzah Aguirre on 12-06-2024 Lymphocytes (Bld) [#/Vol] 1.19 10*3/uL 0.83-4.51 [facility] Lymphocytes/100 WBC Auto (Un sp spec)Ordered By: Hamzah Aguirre on 12-06-2024 Lymphocytes/100 WBC (Bld) 30.3 % 19-41 [facility] MCV (mean corpuscular volume ) determinationOrdered By: Hamzah Aguirre on 12-06-2024 MCV (RBC) [Entitic vol] 73.7 fL Low 81-99 [facility] Mean corpuscular hemoglobin (MCH) determinationOrdered By: Hamzah Aguirre on 12-06-2024 MCH (RBC) [Entitic mass] 21.8 pg Low 27.0-32.0 [facility] Mean corpuscular hemoglobin concentration (MCHC) determinationOrdered By: Hamzah Aguirre on 12-06-2024 MCHC (RBC) [Mass/Vol] 29.6 g/dL Low 32-36 [facility] Mean platelet volume determi nationOrdered By: Hamzah Aguirre on 12-06-2024 Platelet mean volume (Bld) [Entitic vol] 10.7 fL 6.2-12.0 [facility] Monocyte percentageOrdered B y: Hamzah Aguirre on 12-06-2024 Monocytes/100 WBC (Bld) 14.0 % High 0-10 [facility] Neutrophil percentageOrdered By: Hamzah Aguirre on 12-06-2024 Neutrophils/100 WBC (Bld) 50.1 % 47-70 [facility] Nucleated red blood cell per centageOrdered By: Hamzah Aguirre on 12-06-2024 Nucleated RBC/100 WBC (Bld) [Ratio] 0 % 0-5 [facility] Ovalocyte detectionOrdered B y: Hamzah Aguirre on 12-06-2024 Ovalocytes LM Ql (Bld) 1+ [facility] Ovalocytes LM Ql (Bld)Ordere d By: Hamzah Aguirre on 12-06-2024 Ovalocytes 1+ [facility] Platelet countOrdered By: Thierno Aguirre on 12-06-2024 Platelets (Bld) [#/Vol] 115 10*3/uL Low 150-450 [facility] Platelet estimateOrdered By: Hamzah Aguirre on 12-06-2024 Platelets LM Ql (Bld) SLT DEC ADEQ [facility] Platelets LM Ql (Bld)Ordered By: Hamzah Aguirre on 12-06-2024 Platelet Estimate SLT DEC ADEQ [facility] Polychromasia LM Ql (Bld)Ord ered By: Hamzah Aguirre on 12-06-2024 Polychromasia 1+ [facility] Potassium (Unsp spec) [Mass/ Vol]Ordered By: Hamzah Aguirre on 12-06-2024 Potassium [Moles/Vol] 4.1 mmol/L 3.3-5.1 [facility] Potassium measurement (mass/ volume)Ordered By: Hamzah Aguirre on 12-06-2024 Potassium (Unsp spec) [Mass/Vol] 4.1 mmol/L 3.3-5.1 [facility] RBC Auto (Bld) [#/Vol]Ordere d By: Hamzah Aguirre on 12-06-2024 RBC (Bld) [#/Vol] 3.80 10*6/uL Low 4.2-5.4 [facility] Serum creatinine measurement (mass/volume)Ordered By: Hamzah Aguirre on 12-06-2024 Creatinine [Mass/Vol] 0.63 mg/dL Low 0.70-1.20 [facility] Serum glucose measurement (m ass/volume)Ordered By: Hamzah Aguirre on 12-06-2024 Glucose [Mass/Vol] 95 mg/dL 70-99 [facility] Serum or plasma calcium harmony urement (mass/volume)Ordered By: Hamzah Aguirre on 12-06-2024 Calcium [Mass/Vol] 8.5 mg/dL 7.6-11.0 [facility] Serum or plasma urea nitroge n measurement (mass/volume)Ordered By: Hamzah Aguirre on 12-06-2024 Urea nitrogen [Mass/Vol] 7 mg/dL 4-19 [facility] Sodium levelOrdered By: Meño Aguirre on 12-06-2024 Sodium [Moles/Vol] 139 mmol/L 133-145 [facility] White blood cell (WBC) count Ordered By: Hamzah Aguirre on 12-06-2024 WBC (Bld) [#/Vol] 3.9 10*3/uL Low 4.4-11.0 [facility] 12 Lead EKGon 12-05-2024 12 Lead EKG [facility] [address] [place] [address] 12 Lead EKG 12/05/24 1345 MR#: [id number] Acct: [id number] Name: DIAN JANE Rep #: [id number] : 1955 69 From: Harpal Cruz MD Attending Dr: Dr. Hamzah Aguirre MD Status: DIS IN Ordering Dr: Hamzah Aguirre MD Date: 12/05/24 Location: [facility] Sex: F C Admitted: 12/04/24 Test [...] found Confirmed by HARPAL CRUZ MD ([id number]), associate editor ADAN RODRIGUEZ ([id number]) on 12/06/2024 1:21:46 PM Referred By: Confirmed By: HARPAL CRUZ MD 12/06/24 1321 Date Harpal Cruz MD CC: JU Nayak; Dr. Hamzah Aguirre MD Signed Normal [facility] 12 Lead EKG [facility] [address] [place] [address] 12 Lead EKG 12/04/24 0949 MR#: [id number] Acct: [id number] Name: DIAN JANE Rep #: [id number] : 1955 69 From: Jose Vail MD Attending Dr: Dr. Hamzah Aguirre MD Status: ADM IN Ordering Dr: Simba Her MD Date: 12/05/24 Location: [facility] Sex: F C Admitted: 12/04/24 Test [...] ST abnormality Borderline Confirmed by Jose Vail ([id number]), associate editor ADAN RODRIGUEZ ([id number]) on 12/05/2024 7:56:14 AM Referred By: Confirmed By: Jose Vail 12/05/24 0756 Date Jose Vail MD CC: AUDIO PRODUCTION INSTRUCTOR-C Valdo Nayak; Dr. Simba Her MD; Dr. Hamzah Aguirre MD Signed Normal [facility] AFP, Tumor Markeron 12-06-19 AFP TUMOR PALMA 9.4 ng/mL High 0.0-9.2 [facility] Comment on above: Order Comment: N Result Comment: [facility] Electrochemiluminescence Immunoassay (ECLIA) Values obtained with different assay methods or kits cannot be used interchangeably. Results cannot be interpreted as absolute evidence of the presence or absence of malignant disease. This test is not interpretable in females. Performed at: [address] [id number] [employer] Log[employer] Engineer: Chance Geronimo PhD, Phone: [phone] Performed By: #### L 500.4050, L503.6210, L100.0100, L3300.0700, L300.3900, L501.6710, L101.9900 #### [facility] [address] [place], [address] Absolute neutrophil countOrd ered By: Hamzah Aguirre on 12-05-2024 Neutrophils (Bld) [#/Vol] 1.3 10*3/uL Low 2.0-7.7 [facility] Activated partial thrombopla stin time (aPTT) in platelet poor plasma by coagulation aOrdered By: Simba Her on 12-05-2024 aPTT Coag (PPP) [Time] 33.1 s 24.1-36.2 [facility] Anion gap in Serum or Plasma Ordered By: Hamzah Aguirre on 12-05-2024 Anion gap [Moles/Vol] 9 mmol/L 5- [facility] BUN/creatinine ratioOrdered By: Hamzah Aguirre on 12-05-2024 Urea nitrogen/Creatinine [Mass ratio] 10.8 mg/mg - [facility] Basic Metabolic Profile (BMP )on 12-05-2024 BUN/CRE 10.8 RATIO Normal 06-23 [facility] Comment on above: Performed By: #### L 500.4050, L503.5510, L100.0100, L3300.0700, L300.3900, L501.6710, L101.9900 #### [facility] [address] [place], [address] Calcium [Mass/Vol] 8.4 mg/dL Normal 7.6-11.0 [facility] Comment on above: Performed By: #### L 500.4050, L503.5510, L100.0100, L3300.0700, L300.3900, L501.6710, L101.9900 #### [facility] [address] [place], [address] Chloride [Moles/Vol] 111 mmol/L High 98-108 [facility] Comment on above: Performed By: #### L 500.4050, L503.5510, L100.0100, L3300.0700, L300.3900, L501.6710, L101.9900 #### [facility] [address] [place], [address] CO2 [Moles/Vol] 19.6 mmol/L Low 21.0-32.0 [facility] Comment on above: Performed By: #### L 500.4050, L503.5510, L100.0100, L3300.0700, L300.3900, L501.6710, L101.9900 #### [facility] [address] [place], [address] Creatinine [Mass/Vol] 0.55 mg/dL Low 0.70-1.20 [facility] Comment on above: Performed By: #### L 500.4050, L503.5510, L100.0100, L3300.0700, L300.3900, L501.6710, L101.9900 #### [facility] [address] [place], [address] ECRCL 81.20 ml/min Normal 50-250 [facility] Comment on above: Performed By: #### L 500.4050, L503.5510, L100.0100, L3300.0700, L300.3900, L501.6710, L101.9900 #### [facility] [address] [place], [address] GAP 9 Normal 5-15 [facility] Comment on above: Performed By: #### L 500.4050, L503.5510, L100.0100, L3300.0700, L300.3900, L501.6710, L101.9900 #### [facility] [address] [place], [address] GFR/1.73 sq M.predicted among non-blacks MDRD (S/P/Bld) [Vol rate/Area] 100 mL/min/{1.73_m2} Normal >60 [facility] Comment on above: Result Comment: mL/m in/1.73m2 CKD-EPI Creatinine Equation (2020) Performed By: #### L 500.4050, L503.5510, L100.0100, L3300.0700, L300.3900, L501.6710, L101.9900 #### [facility] [address] [place], [address] Glucose [Mass/Vol] 90 mg/dL Normal 70-99 [facility] Comment on above: Performed By: #### L 500.4050, L503.5510, L100.0100, L3300.0700, L300.3900, L501.6710, L101.9900 #### [facility] [address] [place], [address] Potassium [Moles/Vol] 3.7 mmol/L Normal 3.3-5.1 [facility] Comment on above: Performed By: #### L 500.4050, L503.5510, L100.0100, L3300.0700, L300.3900, L501.6710, L101.9900 #### [facility] [address] [place], [address] Sodium [Moles/Vol] 139 mmol/L Normal 133-145 [facility] Comment on above: Performed By: #### L 500.4050, L503.5510, L100.0100, L3300.0700, L300.3900, L501.6710, L101.9900 #### [facility] [address] [place], [address] Urea nitrogen [Mass/Vol] 6 mg/dL Normal 4-19 [facility] Comment on above: Performed By: #### L 500.4050, L503.5510, L100.0100, L3300.0700, L300.3900, L501.6710, L101.9900 #### [facility] [address] [place], [address] Basophil percentageOrdered B y: Hamzah Aguirre on 12-05-2024 Basophils/100 WBC (Bld) 1.1 % High 0-1 [facility] CBC W/Diff, Automatedon Anisocytosis Ql (Bld) 1+ Normal [facility] Comment on above: Performed By: #### L 500.4050, L503.5510, L100.0100, L3300.0700, L300.3900, L501.6710, L101.9900 #### [facility] [address] [place], [address] Carbon dioxide, total [Moles /volume] in Central venous bloodOrdered By: Hamzah Aguirre on 12-05-2024 CO2 [Moles/Vol] 19.6 mmol/L Low 21.0-32.0 [facility] Chloride assayOrdered By: Thierno Aguirre on 12-05-2024 Chloride [Moles/Vol] 111 mmol/L High 98-108 [facility] EGD Reporton 12-05-2024 EGD Report [facility] Medical Records Department [address] [place] [address] EGD Report MR#: [id number] Acct: [id number] Name: DIAN JANE Rep #: [id number] : 1955 69 From: Francisco Zaman DO [...] Capsule endoscopy Procedure Code(s): --- Professional --- 24157, Small intestinal endoscopy, enteroscopy beyond second portion of duodenum, not including ileum; with control of bleeding (eg, injection, bipolar cautery, unipolar cautery, laser, heater probe, stapler, plasma beach lifeguard) CPT copyright 2021 [employer]. All rights reserved. The codes documented in this report are preliminary and upon parks and recreation manager review may be revised to meet current compliance requirements. Francisco Zaman DO 12/05/2024 6:55:54 PM This report has been signed electronically. Number of Addenda: 0 Note Initiated On: 12/05/2024 6:26 PM 12/05/24 1855 Date Francisco Zaman DO Cosigner Signature: Date (more content not included)... Normal [facility] Electrocardiogram reportOrde red By: Jose Vail on 12-05-2024 EKG study [facility] Cardiovascular Services [address] [place] [address] 12 Lead EKG 12/04/24 0949 MR#: [id number] Acct: [id number] Name: DIAN JANE Rep #:[id number] : 1955 69 From: Jose daley MD Attending Dr: Dr. Hamzah Aguirre MD Status: ADM IN Ordering Dr: Simba Her MD Date: 12/05/24 Location: [facility] Sex: F C Admitted: 12/04/24 Test [...] ST abnormality Borderline Confirmed by Jose Vail ([id number]), associate editor ADAN RODRIGUEZ ([id number]) on 12/05/2024 7:56:14 AM Referred By: Confirmed By: Jose Vail 12/05/24 0756 Date _ Jose Vail MD CC: JU Nayak; Dr. Simba Her MD; Dr. Hamzah Aguirre MD ~ Signed [facility] Other Phone: Eosinophil percentageOrdered By: Hamzah Aguirre on 12-05-2024 Eosinophils/100 WBC (Bld) 5.4 % High 0-5 [facility] Erythrocyte distribution wid th (RBC) [Ratio]Ordered By: Hamzah Aguirre on 12-05-2024 Erythrocyte distribution width (RBC) [Entitic vol] 54.6 fL High 35.1-43.9 [facility] Erythrocyte distribution wid th ratioOrdered By: Hamzah Aguirre on 12-05-2024 Erythrocyte distribution width (RBC) [Ratio] 21.0 % High 11.6-14.6 [facility] Estimation of creatinine jose aranceOrdered By: Hamzah Aguirre on 12-05-2024 Estimated Creatinine Clearance Calc 81.20 ml/min 50-250 [facility] GFR/1.73 sq M.predicted yadi g non-blacks MDRD (S/P/Bld) [Vol rate/Area]Ordered By: Hamzah Aguirre on 12-05-2024 Estimated GFR (MDRD) Non-Af Amer 100 >60 [facility] Comment on above: mL/min/1.73m2 CKD-EP I Creatinine Equation (2020) Hematocrit Auto (Bld) [Volum e fraction]Ordered By: Hamzah Aguirre on 12-05-2024 Hematocrit (Bld) [Volume fraction] 26.2 % Low 37-47 [facility] Hemoglobin measurementOrdere d By: Hamzah Aguirre on 12-05-2024 Hemoglobin (Bld) [Mass/Vol] 8.0 g/dL Low 12.0-15.0 [facility] Immature granulocytes/100 WB C Auto (Bld)Ordered By: Hamzah Aguirre on 12-05-2024 Immature granulocytes/100 WBC (Bld) 0.000 % 0.0-0.9 [facility] Comment on above: IG% - Immature Granu locytes (promyelocytes, myelocytes and metamyelocytes) > 1% indicates that a LEFT SHIFT is Present. International normalized rat io (INR) calculationOrdered By: Simba Her on 12-05-2024 INR Coag (Bld) [Relative time] 1.6 {INR} [facility] L499.0042on 12-05-2024 Trop T High Sen 9 ng/L Normal <=14 [facility] Comment on above: Performed By: #### L 500.4050, L503.5510, L100.0100, L3300.0700, L300.3900, L501.6710, L101.9900 #### [facility] [address] [place], [address] L499.0043on 12-05-2024 Trop T High Sen Normal <=14 [facility] Comment on above: Result Comment: NO S PECIMEN COLLECTED. PATIENT DISCHARGED Performed By: #### L 500.4050, L503.5510, L100.0100, L3300.0700, L300.3900, L501.6710, L101.9900 #### [facility] [address] [place], [address] L501.4021on 12-05-2024 Trop T High Sen 8 ng/L Normal <=14 [facility] Comment on above: Performed By: #### L 501.4021 #### [facility] [address] [place], [place], [address] Laboratory - Hematology and Cell countsOrdered By: Hamzah Aguirre on 12-05-2024 Anisocytosis Ql (Bld) 1+ [facility] Lymphocytes Auto (Unsp spec) [#/Vol]Ordered By: Hamzah Aguirre on 12-05-2024 Lymphocytes (Bld) [#/Vol] 1.01 10*3/uL 0.83-4.51 [facility] Lymphocytes/100 WBC Auto (Un sp spec)Ordered By: Hamzah Aguirre on 12-05-2024 Lymphocytes/100 WBC (Bld) 36.3 % 19-41 [facility] MCV (mean corpuscular volume ) determinationOrdered By: Hamzah Leonardcristianodane on 12-05-2024 MCV (RBC) [Entitic vol] 72.2 fL Low 81-99 [facility] Comment on above: Delta: 68.0 on 12/04-1019 MR/CON.PCM.GIon 12-05-2024 MR/CON.PCM.GI [facility] Medical Records Department [address] [place] [address] Consultation - GI 12/05/24 1825 MR#: [id number] Acct: [id number] Name: DIAN JANE Rep #: [id number] : 1955 69 From: Francisco Zaman DO PCP: JU Mishra Status:ADM IN Location: [place] [address] HPI Consult Data Date of Consult: 12/05/24 [...] that from May to June down in [place] where she was originally from she had [...] diagnosed with cirrhosis about one year in [place]. She has not had consistent f/u with [...] 2 unit PRBC from the emergency department [facility] Medical History Bilateral carotid artery disease SEVERINO (obstructive sleep apnea) GERD (gastroesophageal reflux disease) Essential (primary) hypertension Edema Cirrhosis Diabetes type 2 Coronary artery disease Home Medications ???Medication ???Instructions ???Recorded ???Last Taken ???Type cholecalciferol (vitamin D3) 325 50,000 unit PO QODAY 12/04/24 04/09/28 History mcg (13,000 unit) capsule clopidogrel 75 [...] 10.1, Kylie (more content not included)... Normal [facility] MR/POSTOP.ANEon 12-05-2024 MR/POSTOP.ANE [facility] Medical Records Department [address] [place] [address] Anesthesia Postop Eval I 12/05/24 1856 MR#: [id number] Acct: [id number] Name: DIAN JANE Rep #: [id number] : 1955 69 From: Simba Her MD PCP: JU Mishra Status:ADM IN Y Race: C Location: [place] [address] Anesthesia: Postop Eval I Current Vital Signs [...] Postop Eval 1 completed: Yes 12/05/241858 Date Simba Her MD Cosigner Signature: Date CC: Signed Normal [facility] MR/[id number] 12-05-2024 [facility] Medical Records Department [address] [place] [address] Anesthesia Postop Eval II 12/05/242013 MR#: [id number] Acct: [id number] Name: DIAN JANE Rep #: [id number] : 1955 69 From: Simba Her MD PCP: JU Mishra Status:ADM IN Y Race: C Location: [place] [address] Anesthesia Postop Eval I Sum Postop Eval [...] Summary Notes Anesthesia Complication No 12/05/24 18:59 DR.AKANCH Anesthesia Complication Comment: Post-operative progress note Anesthesia: Postop Eval II Evaluation Mental status: Awake and Calm Pain Level: 0 nausea: No Vomiting: No Progress Note Post-operative progress note: Nausea improved with breathing from a Queasy. Complications Anesthesia Complication: No 12/05/242014 Date Simba Her MD Cosigner Signature: Date CC: Signed Normal [facility] Magnesiumon 12-05-2024 Magnesium [Mass/Vol] 1.8 mg/dL Normal 1.5-2.2 [facility] Comment on above: Performed By: #### L 500.4050, L503.5510, L100.0100, L3300.0700, L300.3900, L501.6710, L101.9900 #### [facility] [facility] [place], [place], [address] Magnesium (Unsp spec) [Mass/ Vol]Ordered By: Hamzah Aguirre on 12-05-2024 Magnesium [Mass/Vol] 1.8 mg/dL 1.5-2.2 [facility] Magnesium measurement (mass/ volume)Ordered By: Hamzah Aguirre on 12-05-2024 Magnesium (Unsp spec) [Mass/Vol] 1.8 mg/dL 1.5-2.2 [facility] Mean corpuscular hemoglobin (MCH) determinationOrdered By: Hamzah Aguirre on 12-05-2024 MCH (RBC) [Entitic mass] 22.0 pg Low 27.0-32.0 [facility] Mean corpuscular hemoglobin concentration (MCHC) determinationOrdered By: Hamzah Aguirre on 12-05-2024 MCHC (RBC) [Mass/Vol] 30.5 g/dL Low 32-36 [facility] Comment on above: Delta: 27.9 on 12/04 Mean platelet volume determi nationOrdered By: Hamzah Aguirre on 12-05-2024 Platelet mean volume (Bld) [Entitic vol] 10.1 fL 6.2-12.0 [facility] Monocyte percentageOrdered B y: Hamzah Aguirre on 12-05-2024 Monocytes/100 WBC (Bld) 11.5 % High 0-10 [facility] Neutrophil percentageOrdered By: Hamzah Aguirre on 12-05-2024 Neutrophils/100 WBC (Bld) 45.7 % Low 47-70 [facility] Nucleated red blood cell per centageOrdered By: Hamzah Aguirre on 12-05-2024 Nucleated RBC/100 WBC (Bld) [Ratio] 0 % 0-5 [facility] Partial Thromboplast Timeon 12-05-2024 aPTT Coag (Bld) [Time] 33.1 s Normal 24.1-36.2 [facility] Comment on above: Performed By: #### L 500.4050, L503.5510, L100.0100, L3300.0700, L300.3900, L501.6710, L101.9900 #### [facility] [address] [place], [place], [id number] Phosphoruson 12-05-2024 Phosphate [Mass/Vol] 3.0 mg/dL Normal 2.7-4.5 [facility] Comment on above: Performed By: #### L 500.4050, L503.5510, L100.0100, L3300.0700, L300.3900, L501.6710, L101.9900 #### [facility] [address] [place], [address] Platelet countOrdered By: Thierno Aguirre on 12-05-2024 Platelets (Bld) [#/Vol] 105 10*3/uL Low 150-450 [facility] Potassium (Unsp spec) [Mass/ Vol]Ordered By: Hamzah Aguirre on 12-05-2024 Potassium [Moles/Vol] 3.7 mmol/L 3.3-5.1 [facility] Prothrombin Time w/INRon INR Coag (PPP) [Relative time] 1.6 {INR} Normal [facility] Comment on above: Performed By: #### L 500.4050, L503.5510, L100.0100, L3300.0700, L300.3900, L501.6710, L101.9900 #### [facility] [address] [place], [place], [id number] PT Coag (PPP) [Time] 19.1 s High 11.7-14.9 [facility] Comment on above: Performed By: #### L 500.4050, L503.5510, L100.0100, L3300.0700, L300.3900, L501.6710, L101.9900 #### [facility] [address] [place], [place], [id number] Prothrombin timeOrdered By: Simba Her on 12-05-2024 PT Coag (PPP) [Time] 19.1 s High 11.7-14.9 [facility] RBC Auto (Bld) [#/Vol]Ordere d By: Hamzah Aguirre on 12-05-2024 RBC (Bld) [#/Vol] 3.63 10*6/uL Low 4.2-5.4 [facility] Serum creatinine measurement (mass/volume)Ordered By: Hamzah Aguirre on 12-05-2024 Creatinine [Mass/Vol] 0.55 mg/dL Low 0.70-1.20 [facility] Serum glucose measurement (m ass/volume)Ordered By: Hamzah Aguirre on 12-05-2024 Glucose [Mass/Vol] 90 mg/dL 70-99 [facility] Serum or plasma calcium harmony urement (mass/volume)Ordered By: Hamzah Aguirre on 12-05-2024 Calcium [Mass/Vol] 8.4 mg/dL 7.6-11.0 [facility] Serum or plasma urea nitroge n measurement (mass/volume)Ordered By: Hamzah Aguirre on 12-05-2024 Urea nitrogen [Mass/Vol] 6 mg/dL 4-19 [facility] Serum phosphorus measurement Ordered By: Hamzah Aguirre on 12-05-2024 Phosphorus Level 3.0 mg/dL 2.7-4.5 [facility] Sodium levelOrdered By: Meño Aguirre on 12-05-2024 Sodium [Moles/Vol] 139 mmol/L 133-145 [facility] Troponin T.cardiac High sens itivity method [Mass/Vol]Ordered By: Hamzah Aguirre on 12-05-2024 Troponin T High Sensitivity 2 Hour 9 ng/L <14 [facility] Troponin T High Sensitivity 8 ng/L <14 [facility] Troponin T.cardiac [Mass/vol ume] in Serum or Plasma by High sensitivity methodOrdered By: Hamzah Aguirre on 12-05-2024 Troponin T.cardiac High sensitivity method [Mass/Vol] 9 ng/L <14 [facility] Troponin T.cardiac High sensitivity method [Mass/Vol] 8 ng/L <14 [facility] White blood cell (WBC) count Ordered By: Hamzah Aguirre on 12-05-2024 WBC (Bld) [#/Vol] 2.8 10*3/uL Low 4.4-11.0 [facility] aPTT Coag (PPP) [Time]Ordere d By: Simba Her on 12-05-2024 aPTT Coag (Bld) [Time] 33.1 s 24.1-36.2 [facility] Absolute lymphocyte countOrd ered By: Jolanta Paz on 12-04-2024 Lymphocytes Auto (Unsp spec) [#/Vol] 0.93 10*3/uL 0.83-4.51 [facility] Absolute neutrophil countOrd ered By: Naga Mcleod on 12-04-2024 Neutrophils (Bld) [#/Vol] 1.3 10*3/uL Low 2.0-7.7 [facility] Absolute neutrophil countOrd ered By: Jolanta Paz on 12-04-2024 Neutrophils (Bld) [#/Vol] 1.6 10*3/uL Low 2.0-7.7 [facility] Alpha fetoprotein measuremen t as tumor markerOrdered By: Jolanta Paz on 12-04-2024 Tumor Marker Alpha Fetoprotein 9.4 ng/mL High 0.0-9.2 [facility] Comment on above: [facility] El ectrochemiluminescence Immunoassay(ECLIA)Values obtained with different assay methods or kits cannotbe used interchangeably. Results cannot be interpreted asabsolute evidence of the presence or absence of malignantdisease.This test is not interpretable in females.Performed at: [address] [id number] Director: Chance Geronimo PhD, Phone: [phone] Ammoniaon 12-04-2024 Ammonia (P) [Moles/Vol] 40.7 umol/L Normal [facility] Comment on above: Performed By: #### L 500.4050, L503.5510, L100.0100, L3300.0700, L300.3900, L501.6710, L101.9900 #### [facility] [address] [place], [place], [id number] Anion gap in Serum or Plasma Ordered By: Naga Mcleod on 12-04-2024 Anion gap [Moles/Vol] 11 mmol/L 01-16 [facility] Anion gap in Serum or Plasma Ordered By: Jolanta Paz on 12-04-2024 Anion gap [Moles/Vol] 9 mmol/L 01-16 [facility] Automated lymphocyte count a s percentage of total leukocytesOrdered By: Jolanta Paz on 12-04-2024 Lymphocytes/100 WBC Auto (Unsp spec) 30.3 % 19- [facility] BRCon 12-04-2024 RC Normal [facility] Comment on above: Result Comment: [id number] OP RC TRANSFUSED 12/04/24 1133 [id number] OP RC TRANSFUSED 12/04/24 1438 [id number] OP RC TRANSFUSED 12/04/24 1806 Performed By: #### L 500.4050, L503.5510, L100.0100, L3300.0700, L300.3900, L501.6710, L101.9900 #### [facility] [address] [place], [place], [id number] BUN/creatinine ratioOrdered By: Naga Mcleod on 12-04-2024 Urea nitrogen/Creatinine [Mass ratio] 17.8 mg/mg 06-23 [facility] BUN/creatinine ratioOrdered By: Jolanta Paz on 12-04-2024 Urea nitrogen/Creatinine [Mass ratio] 17.0 mg/mg 10 [facility] Basophil percentageOrdered B y: Naga Mcleod on 12-04-2024 Basophils/100 WBC (Bld) 1.4 % High 0-1 [facility] Basophil percentageOrdered B y: Jolanta Paz on 12-04-2024 Basophils/100 WBC (Bld) 1.0 % 0-1 [facility] Bilirubin, totalOrdered By: Naga Mcleod on 12-04-2024 Bilirubin [Mass/Vol] 0.72 mg/dL 0.00-1.30 [facility] Bilirubin, totalOrdered By: Jolanta Paz on 12-04-2024 Bilirubin [Mass/Vol] 0.79 mg/dL 0.00-1.30 [facility] CRPon 12-04-2024 C-REACTIVE PROT < 3.00 Normal 0.0-3.0 [facility] Comment on above: Performed By: #### L 500.4050, L503.5510, L100.0100, L3300.0700, L300.3900, L501.6710, L101.9900 #### [facility] [address] [place], [place], [id number] CRP [Mass/Vol]Ordered By: Laurence Paz on 12-04-2024 C-Reactive Protein Extended Range < 3.00 mg/L 0.0-3.0 [facility] CTA Abd/Pelvis W/WO Contrast on 12-04-2024 CTA Abd/Pelvis W/WO Contrast [facility] Imaging Services [address] [place], [place] [id number] CTA Abd/Pelvis W/WO Contrast MR#: [id number] Acct: [id number] Name: DIAN JANE Rep #: [id number] : 1955 F 69 From: Antwan keller MD PCP: JU Mishra Status: PRE ER Study: CTA Abd/Pelvis W/WO Contrast Date of Exam: 10/29 Exam# [id number] Ordering Dr: Naga Mcleod DO PROCEDURE: CTA [...] evidence of splenomegaly. Sigmoid diverticulosis. Reading Location: [facility] CC: JU Nayak; Dr. Naga Mcleod DO Vice President Business Development: Signed Normal [facility] Carbon dioxide, total [Moles /volume] in Central venous bloodOrdered By: Naga Mcleod on 12-04-2024 CO2 [Moles/Vol] 20.0 mmol/L Low 21.0-32.0 [facility] Carbon dioxide, total [Moles /volume] in Central venous bloodOrdered By: Jolanta Paz on 12-04-2024 CO2 [Moles/Vol] 21.4 mmol/L 21.0-32.0 [facility] Chloride assayOrdered By: Jose Mcleod on 12-04-2024 Chloride [Moles/Vol] 108 mmol/L 98-108 [facility] Chloride assayOrdered By: Laurence Paz on 12-04-2024 Chloride [Moles/Vol] 108 mmol/L 98-108 [facility] Comprehensive Metabolic Prof ilon 12-04-2024 Albumin [Mass/Vol] 3.4 g/dL Normal 3.4-4.8 [facility] Comment on above: Performed By: #### L 500.4050, L503.5510, L100.0100, L3300.0700, L300.3900, L501.6710, L101.9900 #### [facility] [address] [place], [address] Albumin/Globulin [Mass ratio] 1.2 {ratio} Normal 0.9-2.4 [facility] Comment on above: Performed By: #### L 500.4050, L503.5510, L100.0100, L3300.0700, L300.3900, L501.6710, L101.9900 #### [facility] [address] [place], [place], [id number] ([phone] ALK PHOS 142 U/L High 35-104 [facility] Comment on above: Performed By: #### L 500.4050, L503.5510, L100.0100, L3300.0700, L300.3900, L501.6710, L101.9900 #### [facility] [address] [place], [address] ALT [Catalytic activity/Vol] 16 U/L Normal <=34 [facility] Comment on above: Performed By: #### L 500.4050, L503.5510, L100.0100, L3300.0700, L300.3900, L501.6710, L101.9900 #### [facility] [address] [place], [address] AST [Catalytic activity/Vol] 39 U/L High <=31 [facility] Comment on above: Performed By: #### L 500.4050, L503.5510, L100.0100, L3300.0700, L300.3900, L501.6710, L101.9900 #### [facility] [address] [place], [address] Bilirubin [Mass/Vol] 0.72 mg/dL Normal 0.00-1.30 [facility] Comment on above: Performed By: #### L 500.4050, L503.5510, L100.0100, L3300.0700, L300.3900, L501.6710, L101.9900 #### [facility] [address] [place], [address] BUN/CRE 17.8 RATIO Normal 10-20 [facility] Comment on above: Performed By: #### L 500.4050, L503.5510, L100.0100, L3300.0700, L300.3900, L501.6710, L101.9900 #### [facility] [address] [place], [address] Calcium [Mass/Vol] 8.5 mg/dL Normal 7.6-11.0 [facility] Comment on above: Performed By: #### L 500.4050, L503.5510, L100.0100, L3300.0700, L300.3900, L501.6710, L101.9900 #### [facility] [address] [place], [address] Chloride [Moles/Vol] 108 mmol/L Normal 98-108 [facility] Comment on above: Performed By: #### L 500.4050, L503.5510, L100.0100, L3300.0700, L300.3900, L501.6710, L101.9900 #### [facility] [address] [place], [address] CO2 [Moles/Vol] 20.0 mmol/L Low 21.0-32.0 [facility] Comment on above: Performed By: #### L 500.4050, L503.5510, L100.0100, L3300.0700, L300.3900, L501.6710, L101.9900 #### [facility] [address] [place], [address] Creatinine [Mass/Vol] 0.57 mg/dL Low 0.70-1.20 [facility] Comment on above: Performed By: #### L 500.4050, L503.5510, L100.0100, L3300.0700, L300.3900, L501.6710, L101.9900 #### [facility] [address] [place], [address] ECRCL 81.29 ml/min Normal 50-250 [facility] Comment on above: Performed By: #### L 500.4050, L503.5510, L100.0100, L3300.0700, L300.3900, L501.6710, L101.9900 #### [facility] [address] [place], [address] GAP 11 Normal 5-15 [facility] Comment on above: Performed By: #### L 500.4050, L503.5510, L100.0100, L3300.0700, L300.3900, L501.6710, L101.9900 #### [facility] [address] [place], [address] GFR/1.73 sq M.predicted among non-blacks MDRD (S/P/Bld) [Vol rate/Area] 99 mL/min/{1.73_m2} Normal >60 [facility] Comment on above: Result Comment: mL/m in/1.73m2 CKD-EPI Creatinine Equation (2020) Performed By: #### L 500.4050, L503.5510, L100.0100, L3300.0700, L300.3900, L501.6710, L101.9900 #### [facility] [address] [place], [address] Globulin (S) [Mass/Vol] 2.8 g/dL Normal 2.2-4.2 [facility] Comment on above: Performed By: #### L 500.4050, L503.5510, L100.0100, L3300.0700, L300.3900, L501.6710, L101.9900 #### [facility] [address] [place], [address] Glucose [Mass/Vol] 111 mg/dL High 70-99 [facility] Comment on above: Performed By: #### L 500.4050, L503.5510, L100.0100, L3300.0700, L300.3900, L501.6710, L101.9900 #### [facility] [address] [place], [address] Potassium [Moles/Vol] 3.4 mmol/L Normal 3.3-5.1 [facility] Comment on above: Performed By: #### L 500.4050, L503.5510, L100.0100, L3300.0700, L300.3900, L501.6710, L101.9900 #### [facility] [address] [place], [address] Sodium [Moles/Vol] 139 mmol/L Normal 133-145 [facility] Comment on above: Performed By: #### L 500.4050, L503.5510, L100.0100, L3300.0700, L300.3900, L501.6710, L101.9900 #### [facility] [address] [place], [address] T PROT 6.2 g/dL Normal 5.9-8.4 [facility] Comment on above: Performed By: #### L 500.4050, L503.5510, L100.0100, L3300.0700, L300.3900, L501.6710, L101.9900 #### [facility] [address] [place], [address] Urea nitrogen [Mass/Vol] 10 mg/dL Normal 4-19 [facility] Comment on above: Performed By: #### L 500.4050, L503.5510, L100.0100, L3300.0700, L300.3900, L501.6710, L101.9900 #### [facility] [address] [place], [address] Albumin [Mass/Vol] 3.4 g/dL Normal 3.4-4.8 [facility] Comment on above: Performed By: #### L 500.4050, L503.5510, L100.0100, L3300.0700, L300.3900, L501.6710, L101.9900 #### [facility] [address] [place], [address] Albumin/Globulin [Mass ratio] 1.2 {ratio} Normal 0.9-2.4 [facility] Comment on above: Performed By: #### L 500.4050, L503.5510, L100.0100, L3300.0700, L300.3900, L501.6710, L101.9900 #### [facility] [address] [place], [address] ALK PHOS 144 U/L High 35-104 [facility] Comment on above: Performed By: #### L 500.4050, L503.5510, L100.0100, L3300.0700, L300.3900, L501.6710, L101.9900 #### [facility] [address] [place], [address] ALT [Catalytic activity/Vol] 17 U/L Normal <=34 [facility] Comment on above: Performed By: #### L 500.4050, L503.5510, L100.0100, L3300.0700, L300.3900, L501.6710, L101.9900 #### [facility] [address] [place], [address] AST [Catalytic activity/Vol] 38 U/L High <=31 [facility] Comment on above: Performed By: #### L 500.4050, L503.5510, L100.0100, L3300.0700, L300.3900, L501.6710, L101.9900 #### [facility] [address] [place], [address] Bilirubin [Mass/Vol] 0.79 mg/dL Normal 0.00-1.30 [facility] Comment on above: Performed By: #### L 500.4050, L503.5510, L100.0100, L3300.0700, L300.3900, L501.6710, L101.9900 #### [facility] [address] [place], [address] BUN/CRE 17.0 RATIO Normal 10-20 [facility] Comment on above: Performed By: #### L 500.4050, L503.5510, L100.0100, L3300.0700, L300.3900, L501.6710, L101.9900 #### [facility] [address] [place], [address] Calcium [Mass/Vol] 8.6 mg/dL Normal 7.6-11.0 [facility] Comment on above: Performed By: #### L 500.4050, L503.5510, L100.0100, L3300.0700, L300.3900, L501.6710, L101.9900 #### [facility] [address] [place], [address] Chloride [Moles/Vol] 108 mmol/L Normal 98-108 [facility] Comment on above: Performed By: #### L 500.4050, L503.5510, L100.0100, L3300.0700, L300.3900, L501.6710, L101.9900 #### [facility] [address] [place], [address] CO2 [Moles/Vol] 21.4 mmol/L Normal 21.0-32.0 [facility] Comment on above: Performed By: #### L 500.4050, L503.5510, L100.0100, L3300.0700, L300.3900, L501.6710, L101.9900 #### [facility] [address] [place], [address] Creatinine [Mass/Vol] 0.62 mg/dL Low 0.70-1.20 [facility] Comment on above: Performed By: #### L 500.4050, L503.5510, L100.0100, L3300.0700, L300.3900, L501.6710, L101.9900 #### [facility] [address] [place], [address] GAP 9 Normal 5-15 [facility] Comment on above: Performed By: #### L 500.4050, L503.5510, L100.0100, L3300.0700, L300.3900, L501.6710, L101.9900 #### [facility] [address] [place], [address] GFR/1.73 sq M.predicted among non-blacks MDRD (S/P/Bld) [Vol rate/Area] 97 mL/min/{1.73_m2} Normal >60 [facility] Comment on above: Result Comment: mL/m in/1.73m2 CKD-EPI Creatinine Equation (2020) Performed By: #### L 500.4050, L503.5510, L100.0100, L3300.0700, L300.3900, L501.6710, L101.9900 #### [facility] [address] [place], [address] Globulin (S) [Mass/Vol] 2.9 g/dL Normal 2.2-4.2 [facility] Comment on above: Performed By: #### L 500.4050, L503.5510, L100.0100, L3300.0700, L300.3900, L501.6710, L101.9900 #### [facility] [address] [place], [address] Glucose [Mass/Vol] 149 mg/dL High 70-99 [facility] Comment on above: Performed By: #### L 500.4050, L503.5510, L100.0100, L3300.0700, L300.3900, L501.6710, L101.9900 #### [facility] [address] [place], [address] Potassium [Moles/Vol] 3.3 mmol/L Normal 3.3-5.1 [facility] Comment on above: Performed By: #### L 500.4050, L503.5510, L100.0100, L3300.0700, L300.3900, L501.6710, L101.9900 #### [facility] [address] [place], [address] Sodium [Moles/Vol] 139 mmol/L Normal 133-145 [facility] Comment on above: Performed By: #### L 500.4050, L503.5510, L100.0100, L3300.0700, L300.3900, L501.6710, L101.9900 #### [facility] [address] [place], [address] T PROT 6.3 g/dL Normal 5.9-8.4 [facility] Comment on above: Performed By: #### L 500.4050, L503.5510, L100.0100, L3300.0700, L300.3900, L501.6710, L101.9900 #### [facility] [address] [place], [address] Urea nitrogen [Mass/Vol] 11 mg/dL Normal 4-19 [facility] Comment on above: Performed By: #### L 500.4050, L503.5510, L100.0100, L3300.0700, L300.3900, L501.6710, L101.9900 #### [facility] [address] [facility] [place], [address] Emergency Department Summary on 12-04-2024 Emergency Department Summary [facility] Medical Records Department [address] [place] [address] Emergency Department Summary 12/04/24 MR#: [id number] Acct: [id number] Name: DIAN JANE Rep #: [id number] : 1955 69 From: Naga Mcleod DO [...] that from May to June down in [place] where she was originally from she had [...] she felt like her symptoms were worsening. [facility] Medical History Bilateral carotid artery disease SEVERINO [...] 11:46 0 (more content not included)... Normal [facility] Eosinophil percentageOrdered By: Naga Mcleod on 12-04-2024 Eosinophils/100 WBC (Bld) 4.3 % 0-5 [facility] Eosinophil percentageOrdered By: Jolanta Paz on 12-04-2024 Eosinophils/100 WBC (Bld) 5.5 % High 0-5 [facility] Erythrocyte Sed Rateon 12-04 SED RATE 3 mm/hr Normal 0-30 [facility] Comment on above: Performed By: #### L 500.4053, L503.5510, L100.0100, L3300.0700, L300.3900, L501.6710, L101.9900 #### [facility] [place], [address] Erythrocyte distribution wid th (RBC) [Ratio]Ordered By: Naga Mcleod on 12-04-2024 Erythrocyte distribution width (RBC) [Entitic vol] 44.7 fL High 35.1-43.9 [facility] Erythrocyte distribution wid th (RBC) [Ratio]Ordered By: Jolanta Paz on 12-04-2024 Erythrocyte distribution width (RBC) [Entitic vol] 44.7 fL High 35.1-43.9 [facility] Erythrocyte distribution wid th ratioOrdered By: Naga Mcleod on 12-04-2024 Erythrocyte distribution width (RBC) [Ratio] 18.4 % High 11.6-14.6 [facility] Erythrocyte distribution wid th ratioOrdered By: Jolanta Paz on 12-04-2024 Erythrocyte distribution width (RBC) [Ratio] 18.3 % High 11.6-14.6 [facility] Erythrocyte distribution wid th standard deviationOrdered By: Jolanta Paz on 12-04-2024 Erythrocyte distribution width (RBC) [Ratio] 44.7 fl High 35.1-43.9 [facility] Erythrocyte sedimentation ra teOrdered By: Jolanta Paz on 12-04-2024 ESR (Bld) [Velocity] 3 mm/h 0-30 [facility] Estimation of creatinine jose aranceOrdered By: Naga Mcleod on 12-04-2024 Estimated Creatinine Clearance Calc 81.29 ml/min 50-250 [facility] GFR/1.73 sq M.predicted yadi g non-blacks MDRD (S/P/Bld) [Vol rate/Area]Ordered By: Naga Mcleod on 12-04-2024 Estimated GFR (MDRD) Non-Af Amer 99 >60 [facility] Comment on above: mL/min/1.73m2 CKD-EP I Creatinine Equation (2020) GFR/1.73 sq M.predicted yadi g non-blacks MDRD (S/P/Bld) [Vol rate/Area]Ordered By: Jolanta Paz on 12-04-2024 Estimated GFR (MDRD) Non-Af Amer 97 >60 [facility] Comment on above: mL/min/1.73m2 CKD-EP I Creatinine Equation (2020) Gastroenterology Visit Repor ton 12-04-2024 Gastroenterology Visit Report [facility] Gastroenterology [address] [place] [address] OFFICE VISIT Date of Service: 12/04/24 MR#: [id number] Acct: [id number] Name: DIAN JANE Rep #: [id number] : 1955 Provider: SHANNON Norman Age/Sex: 69/F Location[place] [facility] [place] Status: Signed Intake Vital Signs 10/06/24 11:58 [...] 12.04.24 Pt here to establish care with [facility]. Pt reports abdominal pain stating a level 8 or 9, diarrhea, constipation, and indigestion. Reports dx cirrhosis a year ago. Denies n/v and bloody stools. Reports she still has gallbladder. Takes pantoprazole daily. ---- [facility] Medical History (Updated 12/04/24 @ 08:11 by [...] to the office today for establishment with [facility]. Pt refered to [facility] from PCP for [...] same time. Pt has seen GI in [place] but was told there is nothing that [...] Appearance: average body habitus and well nourished [facility] Head: normal to inspection Ears: hearing grossly normal bilaterally Nose: external nose normal Face and sinus: normal facial exam (more content not included)... Normal [facility] Glomerular filtration rate ( GFR) estimation/1.73 sq m using serum, plasma, or whole bOrdered By: Jolanta Paz on 12-04-2024 GFR/1.73 sq M.predicted among non-blacks MDRD (S/P/Bld) [Vol rate/Area] 97 mL/min/{1.73_m2} >60 [facility] Comment on above: mL/min/1.73m2 CKD-EP I Creatinine Equation (2020) [facility]&P Exam - Hospitalist [facility] Medical Records Department [address] [place] [address] H P Exam - Hospitalist 12/04/24 1313 MR#: [id number] Acct: [id number] Name: DIAN JANE Rep #: [id number] : 1955 69 From: Hamzah Aguirre MD [...] capsule endoscopy as well as colonoscopy at [facility] in [facility]. Patient was diagnosed with AVMs.. Patient apparently did move to [place] and has been followed by Dr. Zaman [...] monitored bed with consultation placed to GI [facility] Medical History Bilateral carotid artery disease SEVERINO [...] Location Left (more content not included)... Normal [facility] Hematocrit Auto (Bld) [Volum e fraction]Ordered By: Naga Mcleod on 12-04-2024 Hematocrit (Bld) [Volume fraction] 20.4 % Low 37-47 [facility] Hematocrit Auto (Bld) [Volum e fraction]Ordered By: Jolanta Paz on 12-04-2024 Hematocrit (Bld) [Volume fraction] 21.3 % Low 37-47 [facility] Hemoglobin measurementOrdere d By: Naga Mcleod on 12-04-2024 Hemoglobin (Bld) [Mass/Vol] 5.7 g/dL Low 12.0-15.0 [facility] Comment on above: CRITICAL VALUE MARTINEZ D TO 12/04/24 1045 Jessica Prater.RESULTS READ BACK BY SAME. Hemoglobin measurementOrdere d By: Jolanta Paz on 12-04-2024 Hemoglobin (Bld) [Mass/Vol] 5.9 g/dL Low 12.0-15.0 [facility] Comment on above: CRITICAL VALUE MARTINEZ D TO RICKY JANG12/04/24 0969 Alexandrea Steward.RESULTS READ BACK BY RICKY JANG. Hypochromatic red blood cell detectionOrdered By: Jolanta Paz on 12-04-2024 Hypochromia Ql (Bld) 1+ [facility] Hypochromia Ql (Bld)Ordered By: Jolanta Paz on 12-04-2024 Hypochromasia 1+ [facility] Immature granulocytes/100 WB C Auto (Bld)Ordered By: Naag Mcleod on 12-04-2024 Immature granulocytes/100 WBC (Bld) 0.700 % 0.0-0.9 [facility] Comment on above: IG% - Immature Granu locytes (promyelocytes, myelocytes and metamyelocytes) > 1% indicates that a LEFT SHIFT is Present. Immature granulocytes/100 WB C Auto (Bld)Ordered By: Jolanta Paz on 12-04-2024 Immature granulocytes/100 WBC (Bld) 0.300 % 0.0-0.9 [facility] Comment on above: IG% - Immature Granu locytes (promyelocytes, myelocytes and metamyelocytes) > 1% indicates that a LEFT SHIFT is Present. International normalized rat io (INR) calculationOrdered By: Jolanta Paz on 12-04-2024 INR Coag (Bld) [Relative time] 1.5 {INR} [facility] L499.0042on 12-04-2024 Trop T High Sen 17 ng/L High <=14 [facility] Comment on above: Performed By: #### L 500.4050, L503.5510, L100.0100, L3300.0700, L300.3900, L501.6710, L101.9900 #### [facility] [address] [place], [place], [address] L499.0043on 12-04-2024 Trop T High Sen 12 ng/L Normal <=14 [facility] Comment on above: Performed By: #### L 500.4050, L503.5510, L100.0100, L3300.0700, L300.3900, L501.6710, L101.9900 #### [facility] [address] [place], [place], [address] L501.4021on 12-04-2024 Trop T High Sen 8 ng/L Normal <=14 [facility] Comment on above: Performed By: #### L 500.4050, L503.5510, L100.0100, L3300.0700, L300.3900, L501.6710, L101.9900 #### [facility] [address] [place], [place], [id number] Laboratory - Chemistry and C hemistry - challengeOrdered By: Naga Mcleod on 12-04-2024 AST [Catalytic activity/Vol] 39 U/L High <32 [facility] - Chemistry and C hemistry - challengeOrdered By: Jolanta Paz on 12-04-2024 AST [Catalytic activity/Vol] 38 U/L High <32 [facility] - Hematology and Cell countsOrdered By: Jolanta Paz on 12-04-2024 Anisocytosis Ql (Bld) 1+ [facility] Lipaseon 12-04-2024 Lipase [Catalytic activity/Vol] 33 U/L Normal 13-75 [facility] Comment on above: Result Comment: Plea se note: LIPASE revised reference range effective 22. New Lipase methodology. Expected to produce lower values than the previous assay method. NEW Reference Range: 13 - 75 U/L Performed By: #### L 500.4050, L503.5510, L100.0100, L3300.0700, L300.3900, L501.6710, L101.9900 #### [facility] [address] [place], [address] Lipase measurementOrdered By : Naga Mcleod on 12-04-2024 Lipase [Catalytic activity/Vol] 33 U/L 13-75 [facility] Comment on above: Please note:LIPASE r evised reference range effective 22. New Lipase methodology. Expected to produce lower values than the previous assay method. NEW Reference Range: 13 - 75 U/L Lower GI hemoglobin IA Ql (S tl)Ordered By: Naga Mcleod on 12-04-2024 Stool Occult Blood (ZEENAT) Positive Abnormal [facility] Lymphocytes Auto (Unsp spec) [#/Vol]Ordered By: Naga Mcleod on 12-04-2024 Lymphocytes (Bld) [#/Vol] 0.89 10*3/uL 0.83-4.51 [facility] Lymphocytes Auto (Unsp spec) [#/Vol]Ordered By: Jolanta Paz on 12-04-2024 Lymphocytes (Bld) [#/Vol] 0.93 10*3/uL 0.83-4.51 [facility] Lymphocytes/100 WBC Auto (Un sp spec)Ordered By: Naga Mcleod on 12-04-2024 Lymphocytes/100 WBC (Bld) 32.0 % 19-41 [facility] Lymphocytes/100 WBC Auto (Un sp spec)Ordered By: Jolanta Paz on 12-04-2024 Lymphocytes/100 WBC (Bld) 30.3 % 19-41 [facility] MCV (mean corpuscular volume ) determinationOrdered By: Naga Mcleod on 12-04-2024 MCV (RBC) [Entitic vol] 68.0 fL Low 81-99 [facility] MCV (mean corpuscular volume ) determinationOrdered By: Jolanta Paz on 12-04-2024 MCV (RBC) [Entitic vol] 68.3 fL Low 81-99 [facility] Mean corpuscular hemoglobin (MCH) determinationOrdered By: Naga Mcleod on 12-04-2024 MCH (RBC) [Entitic mass] 19.0 pg Low 27.0-32.0 [facility] Mean corpuscular hemoglobin (MCH) determinationOrdered By: Jolanta Paz on 12-04-2024 MCH (RBC) [Entitic mass] 18.9 pg Low 27.0-32.0 [facility] Mean corpuscular hemoglobin concentration (MCHC) determinationOrdered By: Naga Mcleod on 12-04-2024 MCHC (RBC) [Mass/Vol] 27.9 g/dL Low 32-36 [facility] Mean corpuscular hemoglobin concentration (MCHC) determinationOrdered By: Jolanta Paz on 12-04-2024 MCHC (RBC) [Mass/Vol] 27.7 g/dL Low 32-36 [facility] Mean platelet volume determi nationOrdered By: Naga Mcleod on 12-04-2024 Platelet mean volume (Bld) [Entitic vol] 10.4 fL 6.2-12.0 [facility] Mean platelet volume determi nationOrdered By: Jolanta Paz on 12-04-2024 Platelet mean volume (Bld) [Entitic vol] 10.2 fL 6.2-12.0 [facility] Monocyte percentageOrdered B y: Naga Mcleod on 12-04-2024 Monocytes/100 WBC (Bld) 14.7 % High 0-10 [facility] Monocyte percentageOrdered B y: Jolanta Paz on 12-04-2024 Monocytes/100 WBC (Bld) 12.1 % High 0-10 [facility] Neutrophil percentageOrdered By: Naga Mcleod on 12-04-2024 Neutrophils/100 WBC (Bld) 46.9 % Low 47-70 [facility] Neutrophil percentageOrdered By: Jolanta Paz on 12-04-2024 Neutrophils/100 WBC (Bld) 50.8 % 47-70 [facility] No Panel InformationOrdered By: Naga Mcleod on 12-04-2024 Troponin T High Sensitivity 8 ng/L <14 [facility] Nucleated red blood cell per centageOrdered By: Naga Mcleod on 12-04-2024 Nucleated RBC/100 WBC (Bld) [Ratio] 0 % 0-5 [facility] Nucleated red blood cell per centageOrdered By: Jolanta Paz on 12-04-2024 Nucleated RBC/100 WBC (Bld) [Ratio] 0 % 0-5 [facility] Pathologist review Braxtno (Unsp spec) [Interp]Ordered By: Naga Mcleod on 12-04-2024 Differential Pathologist's Review [facility] Differential Pathologist's Review N/A [facility] Comment on above: Previous reported re sult: Shanelle pelayo Edited by: LAURA on 12/08/24:1437 AMENDED REPORT 12/08/24 1437 PATH REV previously reported as: Shanelle pelayo Pathologist review Braxton (Unsp spec) [Interp]Ordered By: Jolanta Paz on 12-04-2024 Differential Pathologist's Review [facility] Comment on above: Previous reported re sult: May gita Edited by: LAURA on 12/08/24:1439 AMENDED REPORT 12/08/24 1439 PATH REV previously reported as: Shanelle pelayo Previous reported result: N/A Edited by: LAURA on 12/08/24:1511 AMENDED REPORT 12/08/24 1511 PATH REV previously reported as: N/A Platelet countOrdered By: Jose Mcleod on 12-04-2024 Platelets (Bld) [#/Vol] 119 10*3/uL Low 150-450 [facility] Platelet countOrdered By: Laurence Paz on 12-04-2024 Platelets (Bld) [#/Vol] 127 10*3/uL Low 150-450 [facility] Platelet estimateOrdered By: Jolanta Paz on 12-04-2024 Platelets LM Ql (Bld) SLT DEC ADEQ [facility] Platelets LM Ql (Bld)Ordered By: Jolanta Paz on 12-04-2024 Platelet Estimate SLT AUG ADEQ [facility] Potassium (Unsp spec) [Mass/ Vol]Ordered By: Naga Mcleod on 12-04-2024 Potassium [Moles/Vol] 3.4 mmol/L 3.3-5.1 [facility] Potassium (Unsp spec) [Mass/ Vol]Ordered By: Jolanta Paz on 12-04-2024 Potassium [Moles/Vol] 3.3 mmol/L 3.3-5.1 [facility] Potassium measurement (mass/ volume)Ordered By: Jolanta Paz on 12-04-2024 Potassium (Unsp spec) [Mass/Vol] 3.3 mmol/L 3.3-5.1 [facility] Prothrombin Time w/INRon INR Coag (PPP) [Relative time] 1.5 {INR} Normal [facility] Comment on above: Performed By: #### L 500.4050, L503.5510, L100.0100, L3300.0700, L300.3900, L501.6710, L101.9900 #### [facility] [address] [place], [address] PT Coag (PPP) [Time] 18.7 s High 11.7-14.9 [facility] Comment on above: Performed By: #### L 500.4050, L503.5510, L100.0100, L3300.0700, L300.3900, L501.6710, L101.9900 #### [facility] [address] [facility] [place], [address] Prothrombin timeOrdered By: Jolanta Paz on 12-04-2024 PT Coag (PPP) [Time] 18.7 s High 11.7-14.9 [facility] RBC Auto (Bld) [#/Vol]Ordere d By: Naga Mcleod on 12-04-2024 RBC (Bld) [#/Vol] 3.00 10*6/uL Low 4.2-5.4 [facility] RBC Auto (Bld) [#/Vol]Ordere d By: Jolanta Paz on 12-04-2024 RBC (Bld) [#/Vol] 3.12 10*6/uL Low 4.2-5.4 [facility] Review by pathologistOrdered By: Naga Mcleod on 12-04-2024 Pathologist review Braxton (Unsp spec) [Interp] N/A [facility] Comment on above: Previous reported re sult: January gita Edited by: LAURA on 12/08/24:1437 AMENDED REPORT 12/08/24 1437 PATH REV previously reported as: Shanelle pelayo Review by pathologistOrdered By: Jolanta Paz on 12-04-2024 Pathologist review Braxton (Unsp spec) [Interp] Reviewed [facility] Comment on above: Previous reported re sult: January foll Edited by: LAURA on 12/08/24:1439 AMENDED [...] 12-04-2024 Creatinine [Mass/Vol] 0.57 mg/dL Low 0.70-1.20 [facility] Serum creatinine measurement (mass/volume)Ordered By: Jolanta Paz on 12-04-2024 Creatinine [Mass/Vol] 0.62 mg/dL Low 0.70-1.20 [facility] Serum globulin measurementOr dered By: Naga Mcleod on 12-04-2024 Globulin (S) [Mass/Vol] 2.8 g/dL 2.2-4.2 [facility] Serum globulin measurementOr dered By: Jolanta Paz on 12-04-2024 Globulin (S) [Mass/Vol] 2.9 g/dL 2.2-4.2 [facility] Serum glucose measurement (m ass/volume)Ordered By: Naga Mcleod on 12-04-2024 Glucose [Mass/Vol] 111 mg/dL High 70-99 [facility] Serum glucose measurement (m ass/volume)Ordered By: Jolanta Paz on 12-04-2024 Glucose [Mass/Vol] 149 mg/dL High 70-99 [facility] Serum or plasma C reactive p rotein measurement (mass/volume)Ordered By: Jolanta Paz on 12-04-2024 CRP [Mass/Vol] mg/L 0.0-3.0 [facility] Serum or plasma alanine morocho otransferase (ALT) measurementOrdered By: Naga Mcleod on 12-04-2024 ALT [Catalytic activity/Vol] 16 U/L <35 [facility] Serum or plasma alanine morocho otransferase (ALT) measurementOrdered By: Jolanta Paz on 12-04-2024 ALT [Catalytic activity/Vol] 17 U/L <35 [facility] Serum or plasma albumin harmony urement (mass/volume)Ordered By: Naga Mcleod on 12-04-2024 Albumin [Mass/Vol] 3.4 g/dL 3.4-4.8 [facility] Serum or plasma albumin harmony urement (mass/volume)Ordered By: Jolanta Paz on 12-04-2024 Albumin [Mass/Vol] 3.4 g/dL 3.4-4.8 [facility] Serum or plasma albumin/glob ulin mass ratioOrdered By: Naga Mcleod on 12-04-2024 Albumin/Globulin [Mass ratio] 1.2 {ratio} 0.9-2.4 [facility] Serum or plasma albumin/glob ulin mass ratioOrdered By: Jolanta Paz on 12-04-2024 Albumin/Globulin [Mass ratio] 1.2 {ratio} 0.9-2.4 [facility] Serum or plasma alkaline chacha sphatase measurementOrdered By: Naga Mcleod on 12-04-2024 ALP [Catalytic activity/Vol] 142 U/L High 35-104 [facility] Serum or plasma alkaline chacha sphatase measurementOrdered By: Jolanta Paz on 12-04-2024 ALP [Catalytic activity/Vol] 144 U/L High 35-104 [facility] Serum or plasma calcium harmony urement (mass/volume)Ordered By: Naga Mcleod on 12-04-2024 Calcium [Mass/Vol] 8.5 mg/dL 7.6-11.0 [facility] Serum or plasma calcium harmony urement (mass/volume)Ordered By: Jolanta Paz on 12-04-2024 Calcium [Mass/Vol] 8.6 mg/dL 7.6-11.0 [facility] Serum or plasma urea nitroge n measurement (mass/volume)Ordered By: Naga Mcleod on 12-04-2024 Urea nitrogen [Mass/Vol] 10 mg/dL - [facility] Serum or plasma urea nitroge n measurement (mass/volume)Ordered By: Jolanta Paz on 12-04-2024 Urea nitrogen [Mass/Vol] 11 mg/dL 4- [facility] Sodium levelOrdered By: Radha Mcleod on 12-04-2024 Sodium [Moles/Vol] 139 mmol/L 133-145 [facility] Sodium levelOrdered By: Delores Paz on 12-04-2024 Sodium [Moles/Vol] 139 mmol/L 133-145 [facility] Stool Occult Blood iFOBon STOB Positive Normal [facility] Comment on above: Performed By: #### L 500.4050, L503.5510, L100.0100, L3300.0700, L300.3900, L501.6710, L101.9900 #### [facility] [address] [place], [address] Stool gastrointestinal hemog lobin detection by immunologic methodOrdered By: Naga Mcleod on 12-04-2024 Lower GI hemoglobin IA Ql (Stl) Positive Abnormal [facility] Target cell detectionOrdered By: Jolanta Paz on 12-04-2024 Target cells LM Ql (Bld) 1+ [facility] Target cells LM Ql (Bld)Orde red By: Jolanta Paz on 12-04-2024 Target Cells 1+ [facility] Total proteinOrdered By: Justin Mcleod on 12-04-2024 Protein [Mass/Vol] 6.2 g/dL 5.9-8.4 [facility] Total proteinOrdered By: Madeleine Paz on 12-04-2024 Protein [Mass/Vol] 6.3 g/dL 5.9-8.4 [facility] Troponin T.cardiac High sens itivity method [Mass/Vol]Ordered By: Naga Mcleod on 12-04-2024 Troponin T High Sensitivity 4 Hour 12 ng/L <14 [facility] Troponin T High Sensitivity 2 Hour 17 ng/L High <14 [facility] Troponin T.cardiac [Mass/vol ume] in Serum or Plasma by High sensitivity methodOrdered By: Naga Mcleod on 12-04-2024 Troponin T.cardiac High sensitivity method [Mass/Vol] 12 ng/L <14 [facility] Type AND Screenon 12-04-2024 Ab SCREEN GEL Negative Normal [facility] Comment on above: Order Comment: A Performed By: #### L 500.4050, L503.5510, L100.0100, L3300.0700, L300.3900, L501.6710, L101.9900 #### [facility] [address] [place] [address]. [place], [place], [id number] Venous blood ammonia measure mentOrdered By: Jolanta Paz on 12-04-2024 Ammonia (P) [Moles/Vol] 40.7 umol/L 11-51 [facility] White blood cell (WBC) count Ordered By: Naga Mcleod on 12-04-2024 WBC (Bld) [#/Vol] 2.8 10*3/uL Low 4.4-11.0 [facility] White blood cell (WBC) count Ordered By: Jolanta Paz on 12-04-2024 WBC (Bld) [#/Vol] 3.1 10*3/uL Low 4.4-11.0 [facility] Brain/Head without Contrasto n 10-06-2024 Brain/Head without Contrast [facility] Imaging Services [address] [place], [place] [address] Brain/Head without Contrast MR#: [id number] Acct: [id number] Name: DIAN JANE Rep #: [id number] : 1955 F 69 From: Krishna Herrera MD PCP: Care Physician,No Primary Status: REG ER Study: Brain/Head without Contrast Date of Exam: 10/29 Exam# [id number] Ordering Dr: Guanaco Martinez DO EXAM: BRAIN/HEAD [...] evidence of acute intracranial pathology. Reading Location: [facility] CC: Dr. Guanaco Martinez DO; No Primary Care Physician Vice President Business Development: Signed Normal [facility] CNOVon 10-06-2024 CNOV Office Visit ([facility] ) -------- DIAN JANE ([id number]) 1955 F Date Time Provider Department 10/06/24 11:15 AM ANITHA MAGANA [facility] During your visit today, we recorded the following information about you: Temperature Pulse Respiration Blood pressure 98.6 degrees 95/minute 20/minute 122/72 Weight 118.7 kg Anitha Magana APRN.CNP 10/06/2024 12:08 PM Signed This note was created using Feedjitriter. Subjective Dian Jane is a 69 year [...] history is provided by the patient. No bilingual speech language pathologist was used. 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 Allergies As of Date: 10/06/2024 Noted Allergy Reaction CORTISONE 10/06/2024 14 - Other: See Comments Comments: Raises BP INFLUENZA VIRUS VACCINES 10/06/2024 10 - Anaphylaxis Date Reviewed: 10/06/2024 Reviewed by: Deanne Blank MA - Fully Assessed Reason for Visit: Headache [52] Cmt: Left eye swollen and red, sharp pain in zoroastrianism last night, still have dull ache behind left eye x 1 day Primary Visit Diagnosis:Acute left eye pain [H57.12] Other Visit Diagnosis:Subconjunctiva l hemorrhage of left eye [H11.32] Prescriptions as of 10/06/2024 - clopidogrel (PLAVIX) 75 mg tablet - pantoprazole DR (PROTONIX) 40 mg tablet - simvastatin (ZOCOR) 20 mg tablet - NITROFURANTOIN ORAL Take by mouth. Problem List As Of Date: 10/06/2024 (None) Encounter Status:Closed by ANITHA MAGANA on 10/06/24 Normal [facility] Emergency Department Summary on 10-06-2024 Emergency Department Summary [facility] Medical Records Department [address] [place] [address] Emergency Department Summary 10/06/24 MR#: [id number] Acct: [id number] Name: DIAN JANE Rep #: [id number] : 1955 69 From: Guanaco Martinez DO [...] redness in her left eye and left zoroastrianism area last night. Patient states that when she woke up today, the redness was much worse. Patient admits to some itching and photophobia. Patient denies any discharge or drainage. Patient denies any matting or crusting. Patient denies any visual changes. Patient denies any trauma or injury. Patient states she was having some pain over the left temporal area. [facility] Medical History (Updated 10/06/24 @ 16:38 by [...] return i (more content not included)... [facility] Erythrocyte Sed Rateon 10-06 SED RATE 12 mm/hr Normal 0-30 [facility] Comment on above: Performed By: #### L 500.4050, L503.5510, L100.0100, L3300.0700, L300.3900, L501.6710, L101.9900 #### [facility] [address] [place], [address] Erythrocyte sedimentation ra teOrdered By: Guanaco Martinez on 10-06-2024 ESR (Bld) [Velocity] 12 mm/h 0-30 [facility] Vital Signs Date Time Vital Sign Value Performing Clinician Faina gomez 03-05-2025 18:49-0400 Body temperature 98.1 [degF] Valdo Erma AUDIO PRODUCTION INSTRUCTOR-C Work Phone: [facility] 03-05-2025 18:49-0400 Diastolic blood pressure 63 mm[Hg] Valdo Erma AUDIO PRODUCTION INSTRUCTOR-C Work Phone: [facility] 03-05-2025 18:49-0400 Heart rate 64 /min [facility] AUDIO PRODUCTION INSTRUCTOR-C Work Phone: [facility] 03-05-2025 18:49-0400 Respiratory rate 20 /min [facility] AUDIO PRODUCTION INSTRUCTOR-C Work Phone: [facility] 03-05-2025 18:49-0400 SaO2% (BldA) [Mass fraction] 100 % Valdo Erma AUDIO PRODUCTION INSTRUCTOR-C Work Phone: [facility] 03-05-2025 18:49-0400 Systolic blood pressure 128 mm[Hg] Valdo Erma AUDIO PRODUCTION INSTRUCTOR-C Work Phone: [facility] 03-05-2025 14:19-0400 Body height 154.94 cm Valdo Erma AUDIO PRODUCTION INSTRUCTOR-C Work Phone: [facility] 03-05-2025 14:19-0400 Body mass index (BMI) [Ratio] 48.2 kg/m2 Valdo Nayak AUDIO PRODUCTION INSTRUCTOR-C Work Phone: [facility] 03-05-2025 14:19-0400 Body weight 115.66 kg Valdo Nayak AUDIO PRODUCTION INSTRUCTOR-C Work Phone: [facility] 03-05-2025 08:56-0400 Body height 157.48 cm Valdo Nayak AUDIO PRODUCTION INSTRUCTOR-C Work Phone: [facility] 03-05-2025 08:56-0400 Body mass index (BMI) [Ratio] 46.4 kg/m2 Valdo Nayak AUDIO PRODUCTION INSTRUCTOR-C Work Phone: [facility] 03-05-2025 08:56-0400 Body weight 115.21 kg Valdo Nayak AUDIO PRODUCTION INSTRUCTOR-C Work Phone: [facility] 03-05-2025 08:56-0400 Diastolic blood pressure 60 mm[Hg] Valdo Nayak AUDIO PRODUCTION INSTRUCTOR-C Work Phone: [facility] 03-05-2025 08:56-0400 SaO2% (BldA) [Mass fraction] 98 % Valdojuli Nayak AUDIO PRODUCTION INSTRUCTOR-C Work Phone: [facility] 03-05-2025 08:56-0400 Systolic blood pressure 115 mm[Hg] Valdo Nayak AUDIO PRODUCTION INSTRUCTOR-C Work Phone: [facility] 01-08-2025 08:45-0400 Body height 157.[address] Guanaco Martinez DO Work Phone: [facility] 01-08-2025 08:45-0400 Body mass index (BMI) [Ratio] 45.1 kg/m2 Dr. Guanaco Martinez DO Work Phone: [facility] 01-08-2025 08:45-0400 Body weight 112.[address] Guanaco Martinez DO Work Phone: [facility] 01-08-2025 08:45-0400 Diastolic blood pressure 56 mm[Hg] Dr. Guanaco Martinez DO Work Phone: [facility] 01-08-2025 08:45-0400 Heart rate 68 /min Dr. Guanaco Martinez DO Work Phone: [facility] 01-08-2025 08:45-0400 Respiratory rate 16 /min Dr. Guanaco Martinez DO Work Phone: [facility] 01-08-2025 08:45-0400 Systolic blood pressure 111 mm[Hg] Dr. Guanaco Martinez DO Work Phone: [facility] 01-06-2025 10:30-0400 Body temperature 98.2 [degF] Venkata Danielle MD Work Phone: [facility] 01-06-2025 10:30-0400 Body weight 111.3 kg Venkata Danielle MD Work Phone: [facility] 01-06-2025 10:30-0400 Diastolic blood pressure 78 mm[Hg] Venkata Danielle MD Work Phone: [facility] 01-06-2025 10:30-0400 Heart rate 72 /min Venkata Danielle MD Work Phone: [facility] 01-06-2025 10:30-0400 Respiratory rate 18 /min Venkata Danielle MD Work Phone: [facility] 01-06-2025 10:30-0400 SaO2% (BldA) [Mass fraction] 98 % Venkata Danielle MD Work Phone: [facility] 01-06-2025 10:30-0400 Systolic blood pressure 110 mm[Hg] Venkata Danielle MD Work Phone: [facility] 12-19-2024 11:08-0400 Body height 157.5 cm Humberto Barrera MD Work Phone: [facility] 12-19-2024 11:08-0400 Body mass index (BMI) [Ratio] 44.99 kg/m2 Humberto Barrera MD Work Phone: [facility] 12-19-2024 11:08-0400 Body weight 111.58 kg Humberto Barrera MD Work Phone: [facility] 12-11-2024 10:16-0400 Body height 157.[address] Guanaco Martinez DO Work Phone: [facility] 12-11-2024 10:16-0400 Body mass index (BMI) [Ratio] 46.3 kg/m2 Dr. Guanaco Martinez DO Work Phone: [facility] 12-11-2024 10:16-0400 Body weight 114.[address] Guanaco Martinez DO Work Phone: 8(403)219-905670 [place] [address] 12-11-2024 10:16-0400 Diastolic blood pressure 80 mm[Hg] Dr. Guanaco Martinez DO Work Phone: 4(102)489-630370 [place] [address] 12-11-2024 10:16-0400 Heart rate 65 /min Dr. Guanaco Martinez DO Work Phone: 9(017)605-119170 [place] [address] 12-11-2024 10:16-0400 SaO2% (BldA) [Mass fraction] 97 % Dr. Guanaco Martniez DO Work Phone: [facility] 12-11-2024 10:16-0400 Systolic blood pressure 121 mm[Hg] Dr. Guanaco Martinez DO Work Phone: [facility] 12-06-2024 09:00-0400 Body temperature 98.2 [degF] Dr. Guanaco Martinez DO Work Phone: [facility] 12-06-2024 09:00-0400 Diastolic blood pressure 71 mm[Hg] Dr. Guanaco Martinez DO Work Phone: [facility] 12-06-2024 09:00-0400 Heart rate 69 /min Dr. Guanaco Martinez DO Work Phone: [facility] 12-06-2024 09:00-0400 Respiratory rate 14 /min Dr. Guanaco Martinez DO Work Phone: [facility] 12-06-2024 09:00-0400 SaO2% (BldA) [Mass fraction] 96 % Dr. Guanaco Martinez DO Work Phone: [facility] 12-06-2024 09:00-0400 Systolic blood pressure 104 mm[Hg] Dr. Guanaco Martinez DO Work Phone: 2(779)474-264870 [place] [address] 12-05-2024 16:42-0400 Body height 157.[address] Guanaco Martinez DO Work Phone: 5(738)916-301570 [place] [address] 12-05-2024 16:42-0400 Body mass index (BMI) [Ratio] 46.7 kg/m2 Dr. Guanaco Martinez DO Work Phone: 7(914)777-647670 [place] [address] 12-05-2024 16:42-0400 Body weight 115.[address] Guanaco Martinez DO Work Phone: 0(752)477-677970 [place] [address] 12-05-2024 14:15-0400 Diastolic blood pressure 79 mm[Hg] Dr. Guanaco Martinez DO Work Phone: 5(463)355-898370 [place] [address] 12-05-2024 14:15-0400 Heart rate 86 /min Dr. Guanaco Martinez DO Work Phone: 0(736)073-780870 [place] [address] 12-05-2024 14:15-0400 Systolic blood pressure 131 mm[Hg] Dr. Guanaco Martinez DO Work Phone: 2(640)651-786270 [place] [address] 12-05-2024 13:35-0400 Body temperature 98 [degF] Dr. Guanaco Martinez DO Work Phone: 6(514)787-954070 [place] [address] 12-05-2024 13:35-0400 Respiratory rate 20 /min Dr. Guanaco Martinez DO Work Phone: 8(667)017-443070 [place] [address] 12-05-2024 13:35-0400 SaO2% (BldA) [Mass fraction] 94 % Dr. Guanaco Martinez DO Work Phone: 2(773)978-110670 [place] [address] 12-05-2024 11:13-0400 Body height 157.[address] Guanaco Martinez DO Work Phone: 3(255)272-300070 [place] [address] 12-05-2024 11:13-0400 Body weight 115.[address] Guanaco Martinez DO Work Phone: 9(441)778-061370 [place] [address] 12-04-2024 17:11-0400 Body height 157.[address] Guanaco Martinez DO Work Phone: 8(227)610-063870 [place] [address] 12-04-2024 17:11-0400 Body mass index (BMI) [Ratio] 46.7 kg/m2 Dr. Guanaco Martinez DO Work Phone: 7(953)789-406970 [place] [address] 12-04-2024 17:11-0400 Body weight 115.[address] Guanaco Martinez DO Work Phone: 0(376)996-786270 [place] [address] 12-04-2024 16:00-0400 Diastolic blood pressure 77 mm[Hg] Dr. Guanaco Martinez DO Work Phone: 9(569)619-527570 [place] [address] 12-04-2024 16:00-0400 Heart rate 75 /min Dr. Guanaco Martinez DO Work Phone: 8(258)770-123670 [place] [address] 12-04-2024 16:00-0400 Respiratory rate 16 /min Dr. Guanaco Martinez DO Work Phone: 0(848)412-134770 [place] [address] 12-04-2024 16:00-0400 SaO2% (BldA) [Mass fraction] 98 % Dr. Guanaco Martinez DO Work Phone: 6(050)414-134970 [place] [address] 12-04-2024 16:00-0400 Systolic blood pressure 156 mm[Hg] Dr. Guanaco Martinez DO Work Phone: 2(715)168-329470 [place] [address] 12-04-2024 15:02-0400 Body temperature 98 [degF] Dr. Guanaco Martinez DO Work Phone: 3(060)941-962523 [place] [address] 12-04-2024 08:22-0400 Body mass index (BMI) [Ratio] 46.7 kg/m2 Dr. Guanaco Martinez DO Work Phone: 9(512)262-203470 [place] [address] 12-04-2024 08:22-0400 Body weight 115.[address] Guanaco Martinez DO Work Phone: 7(105)517-986270 [place] [address] 12-04-2024 08:22-0400 Diastolic blood pressure 62 mm[Hg] Dr. Guanaco Martinez DO Work Phone: 2(778)601-330470 [place] [address] 12-04-2024 08:22-0400 SaO2% (BldA) [Mass fraction] 97 % Dr. Guanaco Martinez DO Work Phone: 6(384)027-277870 [place] [address] 12-04-2024 08:22-0400 Systolic blood pressure 138 mm[Hg] Dr. Guanaco Martinez DO Work Phone: 7(612)131-821270 [place] [address] 10-06-2024 16:52-0500 Body temperature 97.9 [degF] Dr. Guanaco Martinez DO Work Phone: 3(223)207-284270 [place] [address] 10-06-2024 16:52-0500 Diastolic blood pressure 84 mm[Hg] Dr. Guanaco Martinez DO Work Phone: 0(556)216-096123 [place] [address] 10-06-2024 16:52-0500 Heart rate 81 /min Dr. Guanaco Martinez DO Work Phone: 9(693)573-075770 [place] [address] 10-06-2024 16:52-0500 Respiratory rate 18 /min Dr. Guanaco Martinez DO Work Phone: 9(145)402-490270 [place] [address] 10-06-2024 16:52-0500 SaO2% (BldA) [Mass fraction] 99 % Dr. Guanaco Martinez DO Work Phone: 0(382)895-903070 [place] [address] 10-06-2024 16:52-0500 Systolic blood pressure 132 mm[Hg] Dr. Guanaco Martinez DO Work Phone: 2(720)914-840670 [place] [address] 10-06-2024 11:58-0500 Body mass index (BMI) [Ratio] 47.7 kg/m2 Dr. Guanaco Martinez DO Work Phone: 4(153)183-069170 [place] [address] 10-06-2024 11:58-0500 Body weight 118.[address] Guanaco Martinez DO Work Phone: 3(094)955-927670 [place] [address] 10-06-2024 11:33-0500 Body temperature 98.6 [degF] Anitha Magana WINDSHIELD TECHNICIAN.VENEER REPAIRER MACHINE Work Phone: [facility] 10-06-2024 11:33-0500 Body weight 118.7 kg Anitha Magana WINDSHIELD TECHNICIAN.VENEER REPAIRER MACHINE Work Phone: [facility] 10-06-2024 11:33-0500 Diastolic blood pressure 72 mm[Hg] Anitha Magana WINDSHIELD TECHNICIAN.VENEER REPAIRER MACHINE Work Phone: [facility] 10-06-2024 11:33-0500 Heart rate 95 /min Anitha Magana WINDSHIELD TECHNICIAN.VENEER REPAIRER MACHINE Work Phone: [facility] 10-06-2024 11:33-0500 Respiratory rate 20 /min Anitha Magana WINDSHIELD TECHNICIAN.VENEER REPAIRER MACHINE Work Phone: [facility] 10-06-2024 11:33-0500 SaO2% (BldA) [Mass fraction] 98 % Anitha Magana WINDSHIELD TECHNICIAN.VENEER REPAIRER MACHINE Work Phone: [facility] 10-06-2024 11:33-0500 Systolic blood pressure 122 mm[Hg] Anitha Magana WINDSHIELD TECHNICIAN.VENEER REPAIRER MACHINE Work Phone: [facility] Encounters Encounter Date Encounter Type Care Provider Facility Start: 03-06-2025 ambulatory Valdo Nayak Facility:[facility] Start: 03-05-2025 End: 03-05-2025 Emergency department patient visit Valdo Nayak AUDIO PRODUCTION INSTRUCTOR-C Work Phone: -Emergency Department Work Phone: Start: 03-05-2025 End: 03-05-2025 ambulatory Valdo Nayak AUDIO PRODUCTION INSTRUCTOR-C Work Phone: -[facility] Start: 03-05-2025 End: 03-05-2025 Patient encounter procedure Jolanta ORTEGA -[facility] Work Phone: Start: 02-26-2025 End: 02-26-2025 ambulatory Valdo Nayak AUDIO PRODUCTION INSTRUCTOR-C Work Phone: -Outpatient Bone Densitometry Start: 02-26-2025 End: 02-26-2025 Patient encounter procedure Valdo Nayak AUDIO PRODUCTION INSTRUCTOR-C -Outpatient Bone Densitometry Work Phone: Start: 02-26-2025 End: 02-26-2025 ambulatory Valdo Nayak Facility:[facility] Start: 02-24-2025 Non-patient / Non-visit Dr. Pacheco MAS -[facility] Start: 02-24-2025 End: 02-24-2025 ambulatory Valdo Nayak AUDIO PRODUCTION INSTRUCTOR-C Work Phone: -Cardiovascular Services Start: 02-24-2025 End: 02-24-[address] Harpal Cruz MD -Cardiovascular Services Work Phone: Start: 02-24-2025 End: 02-24-2025 ambulatory Vanesa Chad Facility:[facility] Start: 01-28-2025 End: 01-28-[address] Guanaco Martinez DO Work Phone: [facility] Work Phone: Start: 01-28-2025 End: 01-28-[address] Humberto Barrera MD -Sleep Lab Work Phone: Start: 01-28-2025 End: 01-28-2025 ambulatory Humberto Barrera Facility:[facility] Start: 01-08-2025 End: 01-08-[address] Harpal Cruz MD -[facility] Work Phone: Start: 01-08-2025 End: 01-08-2025 ambulatory Valdo Nayak Facility:[facility] Start: 01-06-2025 End: 01-06-2025 Follow-up encounter Venkata Danielle MD Work Phone: [facility] Comment on above: Results (US DVT (-)) Start: 01-06-2025 ambulatory VENKATA DANIELLE Facili ty:[facility] Start: 01-06-2025 End: 01-06-2025 Subsequent hospital visit by physician [facility] Work Phone: Radiology Comment on above: Pain of left calf [M 79.662] Start: 01-06-2025 End: 01-06-2025 Subsequent hospital visit by physician Rosalina [facility] Jelly Work Phone: Radiology Comment on above: Pain of left heel [M 79.672] Start: 01-06-2025 End: 01-06-2025 Patient encounter procedure Venkata Danielle MD Work Phone: [facility] Comment on above: Pain of left heel (P rimary Dx); Heel spur, left; Pain of left calf Start: 01-06-2025 End: 01-06-2025 ambulatory [facility] Facility:[facility] Start: 12-20-2024 End: 12-20-2024 Patient encounter procedure Jolanta ORTEGA -Ultrasound [facility] Work Phone: Start: 12-19-2024 End: 12-19-2024 Telemedicine consultation with patient Humberto Barrera MD Work Phone: Sleep Medicine [facility] Comment on above: SEVERINO (obstructive sle ep apnea) (Primary Dx); Morbid obesity with BMI of 40.0-44.9, adult Start: 12-19-2024 End: 12-20-2024 ambulatory HUMBERTO BARRERA Facility:[facility] Start: 12-11-2024 End: 12-11-2024 Patient encounter procedure Jolanta ORTEGA -[facility] Work Phone: Start: 12-11-2024 End: 12-11-[address] Guanaco Martinez DO Work Phone: [facility] Work Phone: Start: 12-11-2024 End: 12-11-2024 ambulatory Vanesa Bonilla Facility:[facility] Start: 12-06-2024 Non-patient / Non-visit Francisco Garcia nd, DO -[facility] Start: 12-06-2024 Non-patient / Non-visit Dr. Marcos MAS -[facility] Work Phone: Start: 12-05-2024 Non-patient / Non-visit Francisco Dotydane mirian MIX -[facility] Start: 12-05-2024 End: 12-05-2024 ambulatory [facility] Facility:[facility] Start: 12-05-2024 End: 12-05-2024 Non-patient / Non-visit Dr. Harpal Cruz MD -[facility] Work Phone: Start: 12-05-2024 Non-patient / Non-visit Dr. Marcos MAS -[facility] Work Phone: Start: 12-04-2024 Non-patient / Non-visit Dr. Marcos MAS -[facility] Work Phone: Start: 12-04-2024 ambulatory [facility] Facility:[facility] Start: 12-04-2024 End: 12-06-2024 Evaluation and management of inpatient Dr. Hamzah Aguirre MD -Progressive Care Unit Work Phone: Start: 12-04-2024 End: 12-04-[address] Guanaco Martinez DO Work Phone: [facility] Work Phone: Start: 12-04-2024 End: 12-04-2024 Patient encounter procedure Jolanta Paz PA -Laboratory Work Phone: Start: 12-04-2024 End: 12-04-2024 Patient encounter procedure Jolanta ORTEGA -[facility] Work Phone: Start: 12-04-2024 End: 12-04-2024 ambulatory [facility] Facility:[facility] Start: 12-04-2024 End: 12-04-2024 ambulatory Jolanta Paz Facility:[facility] Start: 11-16-2024 ambulatory [facility] Facility:[facility] Start: 10-06-2024 End: 10-06-2024 Emergency department patient visit Dr. Guanaco Martinez DO -Emergency Department Work Phone: Start: 10-06-2024 End: 10-06-2024 ambulatory VALDO ERMA Facility:[facility] Start: 10-06-2024 End: 10-06-2024 Patient encounter procedure Anitha Magana WINDSHIELD TECHNICIAN.VENEER REPAIRER MACHINE Work Phone: [facility] Comment on above: Acute left eye pain (Primary Dx); Subconjunctival hemorrhage of left eye Procedures Date Procedure Procedure Detail Performing Clinician Start: 03-05-2025 Measurement of occult blood in stool specimen using immunoassay [facility] Work Phone: Start: 02-26-2025 Hepatitis A virus antibody, total measurement [facility] Work Phone: Comment on above: Comment: The HAV total antibody assay de tects both IgG andIgM but does not differentiate between them. A negativeresult suggests susceptibility to infection. A positiveresult could be due to vaccination, previously resolvedinfection or active infection. Testing for HAV IgM shouldbe performed if active HAV infection is suspected. [facility]ers profiles that will automatically reflex positive HAVtotal antibody results to IgM (e.g., panel #[id number] HAVAntibody w/ Rfx).Performed at: [address] [id number] Director: Chance Geronimo PhD, Phone: [phone] Start: 02-26-2025 Hepatitis C antibody measurement [facility] Work Phone: Comment on above: Reactive: Presumptive evidence of antibo dies to HCV. Follow CDC recommendations for supplemental testing.Non-Reactive: Antibodies to HCV were not detected; does not exclude the possibility of exposure to HCVReactive Results are presumptive evidence of antibodies to HCV. Follow CDC recommendations for supplemental testing.Order confirmation testing: HCV Quant by PCR testing - HCVPCR #[id number] Non Reactive: < 0.8 Equivocal: >/= 0.8 to < 1.0 Reactive: >/= 1.0The CDC requires that a reactive/equivocal HCV antibody result be sent out for confirmation. HCV Quant by PCR testing. Start: 02-26-2025 Total iron binding capacity measurement Valdo Erma AUDIO PRODUCTION INSTRUCTOR-C Work Phone: Start: 02-26-2025 Dual energy X-ray absorptiometry Valdo Nayak AUDIO PRODUCTION INSTRUCTOR-C Work Phone: Start: 02-26-2025 Screening mammography Valdo Nayak AUDIO PRODUCTION INSTRUCTOR-C Work Phone: Start: 01-08-2025 Evaluation of diagnostic study results [...] on above: Detection Limit = 5Performed at: [address] [id number] Director: Chance Geronimo PhD, Phone: [phone] at: [facility] [address] [id number] Director: Buddy Navarrete MD, Phone: [phone] Start: 12-11-2024 PRIMARY CARE NURSE antibody measurement Dr. Guanaco velázquez DO Work Phone: Comment on above: Previous reported result: TNP AIEdited b y: INFCE on 12/12/24:1308 AMENDED REPORT 12/12/24 1308 PRIMARY CARE NURSE Ab previously reported as: Test not performed [...] Guanaco Martinez DO Work Phone: Start: 12-04-2024 Sheex-5-Kxiqamtsxxf measurement Dr. Guanaco Martinez DO Work Phone: Comment on above: [employer] Electrochemiluminescen ce Immunoassay(ECLIA)Values obtained with different assay methods or kits cannotbe used interchangeably. Results cannot be interpreted asabsolute evidence of the presence or absence of malignantdisease.This test is not interpretable in females.Performed at: [address] [id number] Director: Chance Geronimo PhD, Phone: [phone] Start: 10-06-2024 CT of head without contrast Dr. Guanaco guzmán DO Work Phone: Start: 07-16-2021 Lipid 1996 panel - Serum or Plasma Venkata Danielle MD Work Phone: Plan of Treatment Date Care Activity Detail Author Start: 02-10-2031 RSV Vaccine (1 - 1-dose 75+ series) RSV Vaccine (1 - 1-dose 75+ series) [facility] Start: 08-23-2026 Diabetes Screening Diabetes Screening [facility] Start: 07-16-2026 Lipid panel Lipid Screening [facility] Start: 05-05-2025 Influenza vaccination INFLUENZA VACCINE (Season Ended) [facility] Start: 04-03-2025 Screening for malignant neoplasm of breast [facility] Start: 03-05-2025 [facility] Start: 03-05-2025 End: 03-05-2025 Administration of blood product [facility] Start: 02-26-2025 MG Breast - bilateral Screening [facility] Start: 02-26-2025 Screening mammography SCRN MAMM (CAD)W/MIKO BILAT [facility] Start: 12-06-2024 Patient discharge [facility] Start: 12-05-2024 Esophagogastroduodenoscopy EGD (Not Applicable) [facility] Start: 12-05-2024 [facility] Start: 12-05-2024 Serum inorganic phosphate measurement [facility] Start: 12-04-2024 Continuous positive airway pressure ventilation treatment [facility] Start: 12-04-2024 Administration of blood product [facility] Start: 12-04-2024 Following clinical pathway protocol [facility] Start: 12-04-2024 Transfusion of blood product [facility] Start: 12-04-2024 Application of intermittent pneumatic compression device [facility] Start: 12-04-2024 Ambulation without limitation [facility] Start: 12-04-2024 Assessment of risk of venous thromboembolism [facility] Start: 12-04-2024 Insertion of catheter into peripheral vein [facility] Start: 12-04-2024 Measuring intake and output [facility] Start: 12-04-2024 Oxygen therapy [facility] Start: 12-04-2024 Providing care according to standard [facility] Start: 12-04-2024 Referral to gastroenterology service [facility] Start: 12-04-2024 End: 12-04-2024 [facility] Start: 12-04-2024 Administration of blood product [facility] Start: 12-04-2024 Verification routine [facility] Start: 12-04-2024 Admission procedure [facility] Start: 12-04-2024 Administration of blood product [facility] Start: 12-04-2024 Leukocyte reduced red blood cells [facility] Start: 12-04-2024 End: 12-04-2024 [facility] Start: 12-04-2024 [id number].tumor marker [Units/volume] in Serum or Plasma [facility] Start: 12-04-2024 Patient referral to dietitian [facility] Start: 10-06-2024 [facility] Start: 09-04-2024 Advance Directive Discussion Advance Directive Discussion [facility] Start: 05-05-2024 Covid-19 Vaccine ( season) Covid-19 Vaccine ( season) [facility] Start: 05-05-2024 Influenza vaccination Influenza Vaccine (#1) [facility] Start: 01-17-2023 Screening for osteoporosis DEXA SCAN DISCUSSION [facility] Start: 02-10-2021 Screening for osteoporosis Bone Density Screening [facility] Start: 02-10-2006 Pneumococcal vaccination PNEUMOCOCCAL VACCINE SERIES (1 of 1 - PCV) [facility] Start: 02-10-2006 Pneumococcal Vaccine: 50+ (1 of 1 - PCV) Pneumococcal Vaccine: 50+ (1 of 1 - PCV) [facility] Start: 02-10-2006 Shingrix Vaccine (1 of 2) Shingrix Vaccine (1 of 2) [facility] Start: 02-10-2006 Zoster vaccine hzv live for subcutaneous use ZOSTER (SHINGLES) VACCINE (1 of 2) [facility] Start: 02-10-2001 Diabetes Screening Diabetes Screening [facility] Start: 02-10-2001 Lipid panel Lipid Screening [facility] Start: 02-10-2001 Screening for malignant neoplasm of colon [facility] Start: 1996 Lipid panel LIPID SCREENING [facility] Start: 1996 Screening for malignant neoplasm of breast Mammogram Screening [facility] Start: 02-10-1977 Screening for malignant neoplasm of cervix CERVICAL CANCER SCREENING DISCUSSION [facility] Start: 02-10-1975 Third diphtheria, tetanus and acellular pertussis (DTaP) vaccination TDAP (ADULT) [facility] Start: 02-10-1975 Urine microalbumin profile DTaP,Tdap,Td Vaccine (1 - Tdap) [facility] Start: 02-10-1974 Anxiety Screening Anxiety Screening [facility] Start: 02-10-1974 Depression Screening Depression Screening [facility] Start: 02-10-1974 Hepatitis C screening Hepatitis C Screening [facility] Start: 1955 Hepatitis C screening HEPATITIS C VIRUS SCREENING [facility] Start: 1955 Tetanus vaccination TETANUS [facility] Anion gap in Serum or Plasma [facility] Anion gap in Serum or Plasma [facility] Anion gap in Serum or Plasma [facility] BUN/Creatinine ratio [facility] BUN/Creatinine ratio [facility] BUN/Creatinine ratio [facility] Calcium [Mass/volume ] in Serum or Plasma [facility] Calcium [Mass/volume ] in Serum or Plasma [facility] Calcium [Mass/volume ] in Serum or Plasma [facility] Carbon dioxide, tota l [Moles/volume] in Central venous blood [facility] Carbon dioxide, tota l [Moles/volume] in Central venous blood [facility] Carbon dioxide, tota l [Moles/volume] in Central venous blood [facility] CBC W Auto Different ial panel - Blood [facility] Comprehensive metabo lic 2000 panel - Serum or Plasma [facility] Creatinine [Mass/vol ume] in Serum or Plasma [facility] Creatinine [Mass/vol ume] in Serum or Plasma [facility] Creatinine [Mass/vol ume] in Serum or Plasma [facility] Erythrocyte mean cor puscular volume determination [facility] Erythrocyte mean cor puscular volume determination [facility] Erythrocyte mean cor puscular volume determination [facility] Glucose [Mass/volume ] in Serum or Plasma [facility] Glucose [Mass/volume ] in Serum or Plasma [facility] Glucose [Mass/volume ] in Serum or Plasma [facility] Hematocrit [Volume F raction] of Blood [facility] Hematocrit [Volume F raction] of Blood [facility] Hematocrit [Volume F raction] of Blood [facility] Hemoglobin [Mass/volume] in Blood [facility] Hemoglobin [Mass/volume] in Blood [facility] Hemoglobin [Mass/volume] in Blood [facility] Leukocytes [#/volume] in Blood [facility] Leukocytes [#/volume] in Blood [facility] Leukocytes [#/volume] in Blood [facility] Magnesium measurement [facility] Mean corpuscular hem oglobin concentration determination [facility] Mean corpuscular hem oglobin concentration determination [facility] Mean corpuscular hem oglobin concentration determination [facility] Mean corpuscular hem oglobin determination [facility] Mean corpuscular hem oglobin determination [facility] Mean corpuscular hem oglobin determination [facility] Measurement of renal function [facility] Measurement of renal function [facility] Measurement of renal function [facility] Neutrophil count [facility] Neutrophil count [facility] Neutrophil count [facility] Neutrophil percent d ifferential count [facility] Neutrophil percent d ifferential count [facility] Neutrophil percent d ifferential count [facility] Patient Education ED Subconjunct ival Hemorrhage [facility] Work Phone: Patient referral [facility] Work Phone: Platelets [#/volume] in Blood [facility] Platelets [#/volume] in Blood [facility] Platelets [#/volume] in Blood [facility] Potassium measurement [facility] Potassium measurement [facility] Potassium measurement [facility] Prothrombin time [facility] Red blood cell count [facility] Red blood cell count [facility] Red blood cell count [facility] Red cell distributio n width determination [facility] Red cell distributio n width determination [facility] Red cell distributio n width determination [facility] Serum chloride measurement [facility] Serum chloride measurement [facility] Serum chloride measurement [facility] Sodium measurement [facility] Sodium measurement [facility] Sodium measurement [facility] Troponin T.cardiac [ Mass/volume] in Serum or Plasma by High sensitivity method [facility] Troponin T.cardiac [ Mass/volume] in Serum or Plasma by High sensitivity method [facility] Troponin T.cardiac [ Mass/volume] in Serum or Plasma by High sensitivity method [facility] Urea nitrogen [Mass/ volume] in Serum or Plasma [facility] Urea nitrogen [Mass/ volume] in Serum or Plasma [facility] Urea nitrogen [Mass/ volume] in Serum or Plasma [facility] US Abdomen limited [facility] US Abdomen limited [facility] US Heart [facility] Payers Date Payer Category Payer Self-pay 2024 Medicare [employer] MEDICARE [employer] MEDICARE PPO [id number] 2024-Present [phone] [place] [address] PPO [id number] 2024 Medicare (Managed Care) [id number] 2024 Medicare [id number] 1955 Unknown [id number] .594 Unknown [id number] 2.16.840.1.907565.3.579.2 .462 Unknown [id number] 2.16.840.1.810628.3.579.2 .462 Unknown [id number] 2.16.840.1.775365.3.579.2 .462 Unknown [id number] 2.16.840.1.688488.3.579.2 .462 Unknown [id number] 2.16.840.1.727286.3.579.2 .462 Unknown [id number] 2.16.840.1.383922.3.579.2 .462 Unknown [id number] 2.16.840.1.053831.3.579.2 .462 Unknown [id number] 2.16.840.1.077118.3.579.2 .462 Unknown [id number] 2.16.840.1.298241.3.579.2 .462 Unknown [id number] 2.16.840.1.265788.3.579.2 .462 Unknown [id number] 2.16.840.1.477558.3.579.2 .462 Unknown [id number] 2.16.840.1.531139.3.579.2 .462 Unknown [id number] 2.16.840.1.375873.3.579.2 .462 Unknown [id number] 2.16.840.1.826620.3.579.2 .462 Unknown [id number] 2.16.840.1.812261.3.579.2 .462 Unknown [id number] 2.16.840.1.111745.3.579.2 .462 Unknown [id number] 2.16.840.1.221971.3.579.2 .462 Unknown [id number] 2.16.840.1.255623.3.579.2 .462 Unknown [id number] 2.16.840.1.827981.3.579.2 .462 Unknown [id number] 2.16.840.1.006315.3.579.2 .462 Social History Date Type Detail Facility Start: 10-06-2024 End: 03-05-2025 Tobacco smoking status NHIS Never smoked tobacco [facility] Start: 10-06-2024 End: 12-19-2024 Tobacco use and exposure Smokeless tobacco non-user [facility] Start: 10-06-2024 End: 12-19-2024 History of Social function [facility] Start: 10-06-2024 End: 12-19-2024 Tobacco use panel [facility] Start: 1955 Sex assigned at Not on file [facility] Start: 11-20-2024 End: 12-04-2024 Sex Female (finding) [facility] Start: 1955 Sex Assigned At Female [facility] NEGATED: Highlighted rowStart: NINF History of tobacco use Passive smoker [facility] Goals Date Patient Goal Desired Activity /State Functional Status Date Assessment Result Facility 12-06-2024 Functional status Ambulates [facility] Work Phone: 12-05-2024 Functional status Ambulates [facility] Work Phone: Mental Status Date Assessment Result Facility 03-05-2025 Cognitive function Level Of Cons ciousness Awake;Alert;Appropriate;Follow s Commands [facility] Work Phone: 12-06-2024 Cognitive function Voice/Name [facility] Work Phone: 12-05-2024 Cognitive function Voice/Name [facility] Work Phone: 12-04-2024 Cognitive function Voice/Name [facility] Work Phone: Clinical Notes 10-06-2024 to 03-05-2025 Note Date & Type Note Facility 03-05-2025 Discharge summary Note Date/Time March 05, 2025 4:50pm [facility] Medical Records Department [address] [place] [address] Emergency Department Summary 03/05/25 MR#: [id number] Acct: [id number] Name: DIAN JANE Rep #:[id number] : 1955 70 From: Pablo Douglas MD PCP: JU Mishra Status:REG ER Location: ED HPI History of Present Illness Chief Complaint: Abn Labs Detail of Chief Complaint: Symptomatic anemia Informant: patient Onset/Context/Timing Onset: Weeks (2) Context: Sudden Onset Timing: Intermittent Quality: Dyspnea with activity Location: Cardiovascular/hematologic Current Severity: Gone Maximum Severity: Severe Worsened by: Walking briskly and especially going up steps Relieved by: Rest Associated Symptoms Associated Symptoms: None Narrative Narrative: Patient is a 70-year-old woman. She has a history of PARRY with varices, type 2 diabetes, coronary artery disease, essential hypertension, sliding hiatal hernia, GERD, obstructive sleep apnea and aortic stenosis who was sent to the [facility] of a hemoglobin of 6.4. Hemoglobin was 8.4 December of this year. Patientdenies black or maroon-colored stool. She denies dark stool. She has not notedany bright red blood. She denies orthostatic symptoms. She denies orthopnea. She has chronic swelling of her legs due to her cirrhosis. She denies nausea or vomiting. She denies chest pain at rest or activity. She is no longer on Plavix. She is on Protonix. She states she no longer bruises easily. She has not noted blood in her urine. She has not reported bleeding from her gums. Prior similar symptoms: No Recent Illness/Hospitalization: No PFSH PFSH Medical History (Updated 03/05/25 @ 16:[address] Pablo Douglas MD) Depression Diabetes Osteoporosis Non-smoker CPAP (continuous positive airway pressure) dependence Asthma Unstable angina Esophageal varices Bilateral carotid artery disease SEVERINO (obstructive sleep apnea) GERD (gastroesophageal reflux disease) Essential (primary) hypertension Edema Cirrhosis Diabetes type 2 Coronary artery disease Home Medications ?Medication ?Instructions ?Recorded ?Last Taken ?Type methocarbamol 750 mg tablet 1,500 mg PO QHS muscle spa sms 12/04/24 12/03/24 History nitroglycerin 0.4 mg sublingual 0.4 mg sublingual Q5-1 5M PRN chest 12/04/24 Unknown History tablet pain cholecalciferol (vitamin D3) 325 125 mcg PO QODAY 03/28 Unknown History mcg (13,000 unit) capsule pantoprazole 40 mg tablet,delayed 40 mg PO QDAY Unknown History release simvastatin 20 mg tablet 20 mg PO QDAY 01/08/25 Unkno wn History alendronate 70 mg tablet 70 mg PO QWEEK 03/05/25 Unkn own History nadolol 20 mg tablet 10 mg (1/2 x 20 mg) PO BID 9 0 days 03/05/25 Unknown Rx #90 tabs spironolactone 100 mg tablet 100 mg PO BID #90 tabs Unknown Rx Allergy/AdvReac Type Severity Reaction Status Date / Time Influenza Virus Vaccines Allergy Severe Anaphylaxis Verified 03/05/25 14:20 (flu vaccine) hydrocodone Allergy Angioedema Verified 03/05/25 14:20 Corticosteroids AdvReac Intermediate Other Verified 03/05/25 14:20 (Glucocorticoids) Family History Mother Heart valve replaced Sister Myocardial infarction Surgical History (Updated 03/05/25 @ 15:25 by Bella Calles) History of coronary artery stent placement History of percutaneous angioplasty (~10/2014) Hx of section Hx of total knee replacement History of total hysterectomy with bilateral salpingo-oophorectomy (BSO) Hx of appendectomy Social History (Updated 03/05/25 @ 15:[address] Pablo Douglas MD) household members: spouse Smoking Status: Never smoker alcohol intake: never substance use type: does not use ROS ROS ED Constitutional Constitutional ED: Denies chills, fever(s), subjective or sweats Eyes Eyes: Denies blurry vision or change in vision Cardiovascular Cardiovascular: Denies chest pain, orthopnea, palpitations, paroxysmal nocturnaldyspnea or racing heartbeat Respiratory/Chest Respiratory/Chest: Reports dyspnea on exertion; Denies cough, dyspnea, orthopnea, paroxysmal nocturnal dyspnea or sputum Gastrointestinal Gastrointestinal: Reports other Details: Detailed HPI narrative ; Denies abdominal pain, constipation, diarrhea, melena, nausea or vomiting Genitourinary Genitourinary ED: Denies hematuria Integumentary Denies rash Neurologic Neurologic: Denies weakness Hematologic/Lymphatic Hematologic/Lymphatic: Reports systems reviewed and no addt'l complaints, exceptas documented EXAM Physical Exam Const Vital Signs: 03/05/25 14:19 03/05/25 14:30 03/05/25 14:36 Temperature 96.5 F L Temperature Source Oral Pulse Rate 74 Pulse Rate [Lying] 64 Pulse Rate [Sitting (for 1 minute prior to obtaining)] 72 Pulse Rate [Standing (for 1 minute prior to obtaining)] 72 Respiratory Rate 22 H Respiratory Effort Normal Non-Labored Respiratory Pattern Normal Blood Pressure 141/68 H Blood Pressure [Lying] 131/64 H Blood Pressure [Sitting (for 1 minute prior to obtaining)] 139/59 H Blood Pressure [Standing (for 1 minute prior to obtaining)] 155/79 H Blood Pressure Mean 92 Blood Pressure Mean [Lying] 86 Blood Pressure Mean [Sitting (for 1 minute prior to obtaining)] 85 Blood Pressure Mean [Standing (for 1 minute prior to obtaining)] 104 Pulse Ox 100 Oxygen Delivery Method Room Air 03/05/25 15:36 03/05/25 16:00 Temperature Temperature Source Pulse Rate 74 66 Pulse Rate [Lying] Pulse Rate [Sitting (for 1 minute prior to obtaining)] Pulse Rate [Standing (for 1 minute prior to obtaining)] Respiratory Rate 16 20 H Respiratory Effort Respiratory Pattern Blood Pressure 141/49 H 155/79 H Blood Pressure [Lying] Blood Pressure [Sitting (for 1 minute prior to obtaining)] Blood Pressure [Standing (for 1 minute prior to obtaining)] Blood Pressure Mean 79 104 Blood Pressure Mean [Lying] Blood Pressure Mean [Sitting (for 1 minute prior to obtaining)] Blood Pressure Mean [Standing (for 1 minute prior to obtaining)] Pulse Ox 100 100 Oxygen Delivery Method Room Air Room Air Positive well nourished and well developed Constitutional Narrative: She appears no distress. BMI is 48.2. She does appear pale. General Appearance ED: well developed, NAD and pallor; Negative for cyanotic or diaphoretic HEENT Reports moist mucous membranes HEENT Narrative: Ears are normal. Nares are patent. Head is normocephalic and atraumatic. Eyes PERRL and EOMs intact bilaterally General Eye ED: Negative for pale conjunctiva or scleral icterus Neck no lymphadenopathy, supple and no JVD Chest Wall inspection of chest normal and palpation of chest normal Resp normal respiratory effort and clear to auscultation bilaterally Cardio regular rate, regular rhythm, S1 normal heart sound and S2 normal heart sound; Negative for no murmurs GI normal to inspection, nondistended, normoactive bowel sounds, non-tender, non-distended and no masses; Negative for hepatosplenomegaly GI Narrative: Rectal exam reveals evidence of prior hemorrhoids. There is no fissures or fistulas noted. Rectal tone is normal. Stool is light brown. Palpation: soft Back/Spine no CVA tenderness Extremity Negative for normal to inspection General Extremety ED: Yes edema General Extremity: edema Neuro oriented x3, CN's II-XII intact bilaterally and no sensory deficits noted Sensorium / Orientation: alert Motor Exam: strength 5/5 throughout Psych mental status grossly normal Skin no rashes or lesions noted, no wounds and skin turgor normal General Skin Exam: pallor; Negative for elasticity normal or jaundice MDM MDM MDM Narrative Medical decision making narrative: Since patient had blood work prior to arrival this was not repeated. Hemoglobinis 6.4. BUN to creatinine ratio was normal. This would suggest not an active bleed. Stool was sent to see if there is microscopic bleeding. Orthostatic vital signs were ordered as well. Review of prior records indicates she was seen today by physician mri assistant Jolanta Sidhu. Her note was reviewed. Assessment was #1 cirrhosis, #2 esophageal varices, #3 GERD and blood work was ordered. Spironolactone was changed from 100 mg a.m. to 100 mg twice daily. She also was seen by SHANNON December 11. At that time diagnosis of cirrhosis, anemia and gastrointestinal bleed. Based on that note patient also has ascites that was documented on CAT scan. He performed an EGD upper on the third as well. 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 These recommendations were reviewed. History & Record Review Additional record(s) reviewed:: Prior outpatient record (Documented in the MDM portion of the EMR.) and Prior labs Lab Data Attestation: I reviewed the patient's lab results. Lab results narrative: Reviewed labs that were obtained prior to her arrival. These were documented inthe MDM narrative of the EMR. 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 Plan is discharge after infusion, ferrous sulfate tablets and follow-up since she has heme positive stool and 2 g drop in her hemoglobin since December.) Discharge Plan Triage Chief Complaint: Abn Labs ED Provider: Pablo Douglas Dx/Rx/DC Orders Clinical Impression: Symptomatic anemia, Essential (primary) hypertension, SEVERINO (obstructive sleep apnea), Diabetes type 2, Aortic stenosis, Signs and symptoms of anemia, Occult blood in stools, RUBY (iron deficiency anemia) Prescriptions: No Action nitroglycerin 0.4 mg tablet, sublingual 0.4 mg sublingual Q5-15M PRN (Reason: chest pain) Rx Instructions: do not exceed 3 doses per episode pantoprazole 40 mg tablet,delayed release (DR/EC) 40 mg PO QDAY simvastatin 20 mg tablet 20 mg PO QDAY Patient Comments: [NO ORIGINAL SIG] methocarbamol 750 mg tablet 1,500 mg PO QHS cholecalciferol (vitamin D3) 325 mcg (13,000 unit) capsule 125 mcg PO QODAY Patient Comments: PT UNSURE OF STRENGTH spironolactone 100 mg tablet 100 mg PO BID Qty: 90 1RF Patient Comments: was supposed to start bid today nadolol 20 mg tablet 10 mg PO BID 90 Days Qty: 90 0RF alendronate 70 mg tablet 70 mg PO QWEEK Patient Comments: has not started med yet Primary Care Provider: Valdo Nayak Referrals: Francisco Zaman DO [Med Staff - Active Staff] - 1-2 Weeks Valdo Nayak NP-C [Primary Care Provider] - Activity Restrictions/Additional Instructions: 1. You need to contact Dr. Zaman's office for follow-up since you have occult blood in your stool and is the cause of your anemia 2. If you notice black stool or maroon-colored stool return to the emergency department immediately 3. You need to take an iron tablet in the morning and in the afternoon for the next 30 days Print Language: Mauritanian Disposition Disposition: Home, Self Care What to do if you have Problems For any increased pain, shortness of breath, bleeding, nausea or vomiting, chestpain, or any unexpected problems, contact your Primary Care Provider. Call [facility] ([phone]) or report to the closest Emergency Room. Call 911 if necessary. 03/05/25 1650 <Electronically signed by Pablo Douglas MD> Cosigner Signature (if applicable): CC: JU Nayak ~ Signed [facility] Work Phone: 1(299) 866-530907-02-2025 Discharge summary [facility] Medical Records Department [address] [place] [address] Emergency Department Summary 03/05/25 MR#: [id number] Acct: [id number] Name: DIAN JANE Rep #:[id number] : 1955 70 From: Pablo Douglas MD PCP: JU Mishra Status:REG ER Location: ED HPI History of Present Illness Chief Complaint: Abn Labs Detail of Chief Complaint: Symptomatic anemia Informant: patient Onset/Context/Timing Onset: Weeks (2) Context: Sudden Onset Timing: Intermittent Quality: Dyspnea with activity Location: Cardiovascular/hematologic Current Severity: Gone Maximum Severity: Severe Worsened by: Walking briskly and especially going up steps Relieved by: Rest Associated Symptoms Associated Symptoms: None Narrative Narrative: Patient is a 70-year-old woman. She has a history of PARRY with varices, type 2 diabetes, coronary artery disease, essential hypertension, sliding hiatal hernia, GERD, obstructive sleep apnea and aortic stenosis who was sent to the [facility] of a hemoglobin of 6.4. Hemoglobin was 8.4 December of this year. Patientdenies black or maroon-colored stool. She denies dark stool. She has not notedany brightred blood. She denies orthostatic symptoms. She denies orthopnea. She has chronic swelling of her legs due to her cirrhosis. She denies nausea or vomiting. She denies chest pain at rest or activity. She is no longer on Plavix. She is on Protonix. She states she no longer bruises easily. She has not noted blood in her urine. She has not reported bleeding from her gums. Prior similar symptoms: No Recent Illness/Hospitalization: No PFSH [facility] Medical History (Updated 03/05/25 @ 16:[address] Pablo Douglas MD) Depression Diabetes Osteoporosis Non-smoker CPAP (continuous positive airway pressure) dependence Asthma Unstable angina Esophageal varices Bilateral carotid artery disease SEVERINO (obstructive sleep apnea) GERD (gastroesophageal reflux disease) Essential (primary) hypertension Edema Cirrhosis Diabetes type 2 Coronary artery disease Home Medications ?Medication ?Instructions ?Recorded ?Last Taken ?Type methocarbamol 750 mg tablet 1,500 mg PO QHS muscle spa sms 12/04/24 12/03/24 History nitroglycerin 0.4 mg sublingual 0.4 mg sublingual Q5-1 5M PRN chest 12/04/24 Unknown History tablet pain cholecalciferol (vitamin D3) 325 125 mcg PO QODAY 03/28 Unknown History mcg (13,000 unit) capsule pantoprazole 40 mg tablet,delayed 40 mg PO QDAY Unknown History release simvastatin 20 mg tablet 20 mg PO QDAY 01/08/25 Unkno wn History alendronate 70 mg tablet 70 mg PO QWEEK 03/05/25 Unkn own History nadolol 20 mg tablet 10 mg (1/2 x 20 mg) PO BID 9 0 days 03/05/25 Unknown Rx #90 tabs spironolactone 100 mg tablet 100 mg PO BID #90 tabs Unknown Rx Allergy/AdvReac Type Severity Reaction Status Date / Time Influenza Virus Vaccines Allergy Severe Anaphylaxis Verified 03/05/25 14:20 (flu vaccine) hydrocodone Allergy Angioedema Verified 03/05/25 14:20 Corticosteroids AdvReac Intermediate Other Verified 03/05/25 14:20 (Glucocorticoids) Family History Mother Heart valve replaced Sister Myocardial infarction Surgical History (Updated 03/05/25 @ 15:25 by Bella Calles) History of coronary artery stent placement History of percutaneous angioplasty (~10/2014) Hx of section Hx of total knee replacement History of total hysterectomy with bilateral salpingo-oophorectomy (BSO) Hx of appendectomy Social History (Updated 03/05/25 @ 15:[address] Pablo Douglas MD) household members: spouse Smoking Status: Never smoker alcohol intake: never substance use type: does not use ROS ROS ED Constitutional Constitutional ED: Denies chills, fever(s), subjective or sweats Eyes Eyes: Denies blurry vision or change in vision Cardiovascular Cardiovascular: Denies chest pain, orthopnea, palpitations, paroxysmal nocturnaldyspnea or racing heartbeat Respiratory/Chest Respiratory/Chest: Reports dyspnea on exertion; Denies cough, dyspnea, orthopnea, paroxysmal nocturnal dyspnea or sputum Gastrointestinal Gastrointestinal: Reports other Details: Detailed HPI narrative ; Denies abdominal pain, constipation, diarrhea, melena, nausea or vomiting Genitourinary Genitourinary ED: Denies hematuria Integumentary Denies rash Neurologic Neurologic: Denies weakness Hematologic/Lymphatic Hematologic/Lymphatic: Reports systems reviewed and no addt'l complaints, exceptas documented EXAM Physical Exam Const Vital Signs: 03/05/25 14:19 03/05/25 14:30 03/05/25 14:36 Temperature 96.5 F L Temperature Source Oral Pulse Rate 74 Pulse Rate [Lying] 64 Pulse Rate [Sitting (for 1 minute prior to obtaining)] 72 Pulse Rate [Standing (for 1 minute prior to obtaining)] 72 Respiratory Rate 22 H Respiratory Effort Normal Non-Labored Respiratory Pattern Normal Blood Pressure 141/68 H Blood Pressure [Lying] 131/64 H Blood Pressure [Sitting (for 1 minute prior to obtaining)] 139/59 H Blood Pressure [Standing (for 1 minute prior to obtaining)] 155/79 H Blood Pressure Mean 92 Blood Pressure Mean [Lying] 86 Blood Pressure Mean [Sitting (for 1 minute prior to obtaining)] 85 Blood Pressure Mean [Standing (for 1 minute prior to obtaining)] 104 Pulse Ox 100 Oxygen Delivery Method Room Air 03/05/25 15:36 03/05/25 16:00 Temperature Temperature Source Pulse Rate 74 66 Pulse Rate [Lying] Pulse Rate [Sitting (for 1 minute prior to obtaining)] Pulse Rate [Standing (for 1 minute prior to obtaining)] Respiratory Rate 16 20 H Respiratory Effort Respiratory Pattern Blood Pressure 141/49 H 155/79 H Blood Pressure [Lying] Blood Pressure [Sitting (for 1 minute prior to obtaining)] Blood Pressure [Standing (for 1 minute prior to obtaining)] Blood Pressure Mean 79 104 Blood Pressure Mean [Lying] Blood Pressure Mean [Sitting (for 1 minute prior to obtaining)] Blood Pressure Mean [Standing (for 1 minute prior to obtaining)] Pulse Ox 100 100 Oxygen Delivery Method Room Air Room Air Positive well nourished and well developed Constitutional Narrative: She appears no distress. BMI is 48.2. She does appear pale. General Appearance ED: well developed, NAD and pallor; Negative for cyanotic or diaphoretic HEENT Reports moist mucous membranes HEENT Narrative: Ears are normal. Nares are patent. Head is normocephalic and atraumatic. Eyes PERRL and EOMs intact bilaterally General Eye ED: Negative for pale conjunctiva or scleral icterus Neck no lymphadenopathy, supple and no JVD Chest Wall inspection of chest normal and palpation of chest normal Resp normal respiratory effort and clear to auscultation bilaterally Cardio regular rate, regular rhythm, S1 normal heart sound and S2 normal heart sound; Negative for no murmurs GI normal to inspection, nondistended, normoactive bowel sounds, non-tender, non- distended and no masses; Negative for hepatosplenomegaly GI Narrative: Rectal exam reveals evidence of prior hemorrhoids. There is no fissures or fistulas noted. Rectal tone is normal. Stool is light brown. Palpation: soft Back/Spine no CVA tenderness Extremity Negative for normal to inspection General Extremety ED: Yes edema General Extremity: edema Neuro oriented x3, CN's II-XII intact bilaterally and no sensory deficits noted Sensorium / Orientation: alert Motor Exam: strength 5/5 throughout Psych mental status grossly normal Skin no rashes or lesions noted, no wounds and skin turgor normal General Skin Exam: pallor; Negative for elasticity normal or jaundice MDM MDM MDM Narrative Medical decision making narrative: Since patient had blood work prior to arrival this was not repeated. Hemoglobinis 6.4. BUN to creatinine ratio was normal. This would suggest not an active bleed. Stool was sent to see if there is microscopic bleeding. Orthostatic vital signs were ordered as well. Review of prior records indicates she was seen today by physician mri assistant Jolanta Sidhu. Her note was reviewed. Assessment was #1 cirrhosis, #2 esophageal varices, #3 GERD and blood work was ordered. Spironolactone was changed from 100 mg a.m. to 100 mg twice daily. She also was seen by SHANNON December 11. At that time diagnosis of cirrhosis, anemia and gastrointestinal bleed. Based on that note patient also has ascites that was documented on CAT scan. He performed an EGD upper on the third as well. 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 These recommendations were reviewed. History & Record Review Additional record(s) reviewed:: Prior outpatient record (Documented in the MDM portion of the EMR.)and Prior labs Lab Data Attestation: I reviewed the patient's lab results. Lab results narrative: Reviewed labs that were obtained prior to her arrival. These were documented inthe MDM narrative ofthe EMR. 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Plan is discharge after infusion, ferrous sulfate tablets and follow-up since she has heme positivestool and 2 g drop in her hemoglobin since December.) Discharge Plan Triage Chief Complaint: Abn Labs ED Provider: Pablo Douglas Dx/Rx/DC Orders Clinical Impression: Symptomatic anemia, Essential (primary) hypertension, SEVERINO (obstructive sleep apnea), Diabetes type 2, Aortic stenosis, Signs and symptoms of anemia, Occult blood in stools, RUBY (iron deficiency anemia) Prescriptions: No Action nitroglycerin 0.4 mg tablet, sublingual 0.4 mg sublingual Q5-15M PRN (Reason: chest pain) Rx Instructions: do not exceed 3 doses per episode pantoprazole 40 mg tablet,delayed release (DR/EC) 40 mg PO QDAY simvastatin 20 mg tablet 20 mg PO QDAY Patient Comments: [NO ORIGINAL SIG] methocarbamol 750 mg tablet 1,500 mg PO QHS cholecalciferol (vitamin D3) 325 mcg (13,000 unit) capsule 125 mcg PO QODAY Patient Comments: PT UNSURE OF STRENGTH spironolactone 100 mg tablet 100 mg PO BID Qty: 90 1RF Patient Comments: was supposed to start bid today nadolol 20 mg tablet 10 mg PO BID 90 Days Qty: 90 0RF alendronate 70 mg tablet 70 mg PO QWEEK Patient Comments: has not started med yet Primary Care Provider: Valdo Nayak Referrals: Francisco Zaman DO [Med Staff - Active Staff] - 1-2 Weeks Valdo Nayak NP-C [Primary Care Provider] - Activity Restrictions/Additional Instructions: 1. You need to contact Dr. Zaman's office for follow-up since you have occult blood in your stool and is the cause of your anemia 2. If you notice black stool or maroon-colored stool return to the emergency department immediately 3. You need to take an iron tablet in the morning and in the afternoon for the next 30 days Print Language: Mauritanian Disposition Disposition: Home, Self Care What to do if you have Problems For any increased pain, shortness of breath, bleeding, nausea or vomiting, chestpain, or any unexpected problems, contact your Primary Care Provider. Call [facility] ([phone]) or report tothe closest Emergency Room. Call 911 if necessary. 03/05/25 1650 Cosigner Signature (if applicable): CC: JU Nayak ~ Signed [facility]07-02-2025 Hospital Discharge instructionsAdditional Instructions 1. You need to contact Dr. Zaman's office for follow-up since you have occult blood in your stool and is the cause of your anemia 2. If you notice black stool or maroon-colored stool return to the emergency department immediately 3. You need to take an iron tablet in the morning and in the afternoon for the next [facility] Work Phone: 1(884) 177-318305-05-2025 Telephone encounter Note* Telephone Encounter - Venkata Danielle MD - 01/06/2025 2:21 PM EDT Patient notified of negative ultrasound. [facility] Work Phone: 1(563) 313-962405-05-2025 Miscellaneous Notes* Telephone Encounter - Venkata Danielle MD - 01/06/2025 2:21 PM EDT Patient notified of negative ultrasound. documented in this encounterProtestant [facility]acon[facility]05-05-2025 History of Present illness Narrative* Anitha Nicole RDMS - 01/06/2025 1:45 PM EDT Radiology Service Progress Note PATIENT NAME: Dian Jane DATE OF SERVICE: January 06, 2025 TIME: 2:22 PM PATIENT IDENTITY VERIFICATION COMPLETED USING TWO (2) IDENTIFIERS: Name and Date of confirmedby patient verbally. FALL SCREENING: Has the patient had 2 falls in the last year or 1 fall with injury or currently using an Ambulatory Assistive Device (Walker, Cane, Wheelchair, Crutches, etc.)? Yes, Patient High Riskfor Falls What interventions were put in place to prevent falls during this visit? Instructed Patient to Callfor Help if Needed, Offered Assistance with Transfers/Clothing, Instructed Patient to Remain Seated(Not on Exam Table) Until Exam, and Increased Observations by Caregivers PATIENT GENDER DATA: Assigned female at . status: : No status:NO. PATIENT RELEVANT IMPLANT DATA REVIEWED: Not Applicable PATIENT PRESENTS WITH AN IMPLANTABLE OR ATTACHED BUSINESS OFFICE ASSISTANT: No RADIOLOGY DEPARTMENT: Ultrasound PERIPHERAL IV DATA: Not applicable SIGNED BY: Anitha Nicole RDMS RVT January 06, 2025 2:22 PM documented in this encounterProtestant Deacon[facility]05-05-2025 NoteHNO ID: [id number] Author: ANITHA NICOLE RDMS Service: ? Author Type: Networks Software Consultant Type: Progress Notes Filed: 01/06/2025 14:23 Note [...] PATIENT PRESENTS WITH AN IMPLANTABLE OR ATTACHED BUSINESS OFFICE ASSISTANT: No RADIOLOGY DEPARTMENT: Ultrasound PERIPHERAL IV DATA: Not applicable SIGNED BY: Anitha Nicole RDMS RVT January 06, 2025 2:22 [facility]05-05-2025 History of Present illness Narrative* Brenda Vivas Tech - 01/06/2025 11:00 AM EDT Radiology Service Progress Note PATIENT NAME: Dian Jane DATE OF SERVICE: January 06, 2025 TIME: 10:59 AM PATIENT IDENTITY VERIFICATION COMPLETED USING TWO (2) IDENTIFIERS: Name and Date of confirmedby patient verbally. FALL SCREENING: Has the patient had 2 falls in the last year or 1 fall with injury or currently using an Ambulatory Assistive Device (Walker, Cane, Wheelchair, Crutches, etc.)? No PATIENT GENDER DATA: Assigned female at . status: : No status:NO. PATIENT RELEVANT IMPLANT DATA REVIEWED: Not Applicable PATIENT PRESENTS WITH AN IMPLANTABLE OR ATTACHED BUSINESS OFFICE ASSISTANT: No RADIOLOGY DEPARTMENT: General X-ray: Exam(s) Completed: Lower Extremity X- Ray(s): Ankle, Left and Heel, Left PERIPHERAL IV DATA: Not applicable SIGNED BY: Arlene Prather January 06, 2025 10:59 AM documented in this encounterProtestant Deaconess [facility]05-05-2025 NoteHNO ID: [id number] Author: BRENDA VIVAS Tech Service: ? Author [...] PATIENT PRESENTS WITH AN IMPLANTABLE OR ATTACHED BUSINESS OFFICE ASSISTANT: No RADIOLOGY DEPARTMENT: General X-ray: Exam(s) Completed: Lower Extremity X-Ray(s): Ankle, Left and Heel, Left PERIPHERAL IV DATA: Not applicable SIGNED BY: Arlene Prather January 06, 2025 10:59 [facility]05-05-2025 NoteHNO ID: [id number] Author: VENKATA DANIELLE MD Service: ? Author Type: Physician Type: Progress Notes Filed: 01/06/2025 14:22 Note Text: [facility] Subjective Dian Jane is [...] of breath (unchanged), returned from visit to [place] 2 days ago, has been in PT [...] reason(s): primary tenderness is in the calcaneus ProceduresUniversity [facility] History of Present illness Narrative* Venkata Danielle MD - 01/06/2025 10:35 AM EDT [facility] Subjective Dian Jane is [...] of breath (unchanged), returned from visit to [place] 2 daysago, has been in PT 6 weeks for injuring right knee replacement, had blood transfusion and EGD for bleeding varices last month Pertinent negatives: Denies fever, chills, palpitations, chest pain, back pain, radicular leg pain,cyanosis. 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 No deformity, ecchymosis orlacerations. Tenderness present. No lateral malleolus, medial malleolus, base of 5th metatarsal or proximal fibula tenderness. Comments: Mild discomfort with palpation of the calf and achilles. Sharp pain with palpation of thecalcaneus medially and inferior aspects. Neurological: Mental Status: [...] in the calcaneus Procedures documented in this encounterProtestant Deacon[facility] Hospital04-17-2025 History of Present illness Narrative* Shea De La Cruz LPN - 12/19/2024 11:00 AM EDT Patient verified full name and * Humberto Barrera MD - 12/19/2024 11:00 AM EDT This telehealth visit is a real time video visit communication. During the scheduling process, thispatient has verbally consented to the submission of [...] and excessive daytime sleepiness. Associated symptoms include: fatigueand unusual behavior during sleep. She denies unusual behavior during sleep. Previous sleep study: Yes done 20 years ago CPAP machine not working properly now. Report available: No 12/19/2024 9:00 AM Pulmonary Dept Documentation Hawthorne Sleepiness Scale 3 FOSQ Score 16.5 My interpretation: does not have EDS Smoking: never Past Medical History: T2DM, liver cirrhosis, CAD Past Surgical History: has no past surgical history on file. Allergies: She has no allergies on file. Medications: Plavix. Simvastatin Family History: + SEVERINO in son Past Social History:She reports that she has never smoked. She has never used smokeless tobacco. Nohistory on file for alcohol use and drug [...] Laboratory and others: Previous medical records from [facility] were reviewed. Serum Chemistry:No results found for: SODIUM, POTASSIUM, CHLORIDE, CO2, BUN, CREATSERUM, GLUCOSE HBA1c: No results found for: HGBA1C Thyroid function tests:No results found for: TSH, GTO94GYT, XQZ86PQI, TSHBASELINE, TSHULTRASEN, TSHRFT4 Lipid profile: No results found for: CHOLESTEROL, TRIG, HDL, LDLCALC No results found for: FERRITIN ECHO: No results found for this or any previous visit. 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 if she [...] Allergy, Critical Care, and Sleep Medicine [facility] FAX: [phone] Email: [email or web address] documented in this encounterK[facility]04-[facility] Discharge summary [facility] Medical Records Department [address] [place] [address] Discharge Summary 12/06/24 0929 MR#: [id number] Acct: [id number] Name: DIAN JANE Rep #:[id number] : 1955 69 From: Hamzah Aguirre MD PCP: JU Mishra Status:ADM IN [facility] Prov[facility] Date of Admission: 12/04/24 Date of Discharge: 12/06/24 Primary Care Physician: JU Mishra Consultations 12/04/24 17:06 Consult: Gastroenterology Routine Consulting Provider: [facility] Reason for Consult: GI bleed EMERGENT [...] patient she has had extensive workup at [facility] in [place]. Requested for old records. Patient stool guaiac [...] 115 L, MPV 10.7, Immature Gran % (Auto)0.300, Neut % (Auto) 50.1, Lymph %(Auto) 30.3, [place] % (Auto) 14.0 H, Eos % (Auto) 4.3, Baso % (Auto) 1.0, AbsoluteNeuts (auto) 2.0, Absolute Lymphs (auto) 1.19, Nucleated RBC % 0, Platelet Estimate SLT DEC, Polychromasia 1+, Anisocytosis 2+, Ovalocytes 1+, Sodium 139, Potassium 4.1, Chloride 109 H,Carbon Dioxide 20.3 L, Anion Gap 9, BUN 7, Creatinine 0.63 L, Estim Creat Clear Calc 81.20, Est GFR(MDRD) Non-Af 96, BUN/Creatinine Ratio 11.4, Glucose 95, [...] Provider: Hamzah Aguirre Primary Care Provider: Valdo Nayak Discharge Orders/Prescriptions Prescriptions: New nadolol 20 mg [...] (To be scheduled for capsule endoscopy) Valdo Nayak NP-C [Primary Care Provider] - Within 2 Weeks Disposition Disposition (needs filled in before D/C Order can be placed): Home, Self Care Charges/Coding Visit Charges Inpatient E&M: 44667 Disch Hosp >30min 12/06/24 0934 Cosigner Signature (if applicable): CC: AUDIO PRODUCTION INSTRUCTOR-C Valdo Nayak; Dr. Hamzah Aguirre MD~ Signed [facility]04-04-2025 [facility] Medical Records Department [address] [place] [address] Discharge Summary 12/06/24 0929 MR#: [id number] Acct: [id number] Name: DIAN JANE Rep #: [id number] : 1955 69 From: Hamzah Aguirre MD PCP: Valdo Erma, AUDIO PRODUCTION INSTRUCTOR-C Status:ADM IN Location: [facility] [id number] Providers Date of Admission: 12/04/24 Date of Discharge: 12/06/24 Primary Care Physician: JU Mishra Consultations 12/04/24 17:06 Consult: Gastroenterology Routine Consulting Provider: Burke Cox Reason for Consult: GI bleed EMERGENT Consult: [...] she has had extensive workup at this [facility] in [place]. Requested for old records. Patient stool guaiac [...] % (Auto) 50.1, Lymph % (Auto) 30.3, [place] % (Auto) 14.0 H, Eos % (Auto) 4.3, Baso % (Auto) 1.0, Absolute Neuts (auto) 2.0, Absolute Lymphs (auto) 1.19, Nucleated RBC % 0, Plate (more content not included)...[facility] 12-05-2024 Consult note Author Simba Her [facility] Note Date/Time December 05, 2024 8:15 pm [facility] Medical Records Department [address] [place] [address] Anesthesia Postop Eval II 12/05/242013 MR#: [id number] Acct: [id number] Name: DIAN JANE Rep #:[id number] : 1955 69 From: Simba Her MD PCP: JU Mishra Status:ADM IN Y Race: C Location: [address] Anesthesia Postop Eval I Sum Postop Eval [...] MD Cosigner Signature: Date CC: ~ Signed [facility] Work Phone: 1(602) 215-949904-03-2025 Consult note Author Simba [facility] Note Date/Time December 05, 2024 6:59 pm [facility] Medical Records Department [address] [place] [address] Anesthesia Postop Eval I 12/05/241855 MR#: [id number] Acct: [id number] Name: DIAN JANE Rep #:[id number] : 1955 69 From: Simba Her MD PCP: JU Mishra Status:ADM IN Y Race: C Location: [place] [address] Anesthesia: Postop Eval I Current Vital Signs [...] MD Cosigner Signature: Date CC: ~ Signed [facility] Work Phone: 1(742) 319-602304-03-2025 Consult note Author Francisco Zaman [facility] Note Date/Time December 05, 2024 6:29 pm [facility] Medical Records Department [address] [place] [address] Consultation - GI 12/05/24 1825 MR#: [id number] Acct: [id number] Name: DIAN JANE Rep #:[id number] : 1955 69 From: Francisco Zaman DO PCP: JU Mishra Status:ADM IN Location: [place] [address] HPI Consult Data Date of Consult: 12/05/24 [...] states [place] was [place] from she had [...] diagnosed with cirrhosis about one year in [place]. She has not had consistent f/uwith GI [...] with 2 unit PRBCfrom the emergency department [facility] Medical History Bilateral carotid artery disease SEVERINO [...] % (Auto) 45.7 L, Lymph% (Auto) 36.3, [place] % (Auto) 11.5 H, Eos % (Auto) [...] endoscopic evaluation. Charges/Coding Visit Charges Inpatient E&M: 97179 Init Hosp L3 12/05/24 1829 <Electronically signed by Francisco Friend DO> Cosigner Signature (if applicable): CC: JU Nayak~ Signed [facility] Work Phone: 1(505) 502-497504-03-2025 Consult note [facility] Medical Records Department [address] [place] [address] Anesthesia Postop Eval II 12/05/242013 MR#: [id number] Acct: [id number] Name: DIAN JANE Rep #:[id number] : 1955 69 From: Simba Her MD PCP: JU Mishra Status:ADM IN Y Race: C Location: [address] Anesthesia Postop Eval I Sum Postop Eval [...] MD Cosigner Signature: Date CC: ~ Signed [facility]04-03-2025 Consult note [facility] Medical Records Department [address] [place] [address] Anesthesia Postop Eval I 12/05/241855 MR#: [id number] Acct: [id number] Name: DIAN JANE Rep #:[id number] : 1955 69 From: Simba Her MD PCP: JU Mishra Status:ADM IN Y Race: C Location: [place] [address] Anesthesia: Postop Eval I Current Vital Signs [...] document: Postop Eval 1 completed: Yes 12/05/241858 stu MAS> Date _ Simba Her MD Cosigner Signature: Date CC: ~ Signed [facility]04-03-2025 Consult note Author Simba Her [facility] Hospital Note Date/Time December 05, 2024 4:59 pm [facility] Medical Records Department [address] [place] [address] Pre-Anesthesia Evaluation 12/05/24 1651 MR#: [id number] Acct: [id number] Name: DIAN JANE Rep #:[id number] : 1955 69 From: Simba Her MD PCP: JU Mishra Status:ADM IN Y Race: C Location: [place] [address] ASA Classification* ASA Classification ASA Classification: 3 [...] 05:12/05/24 Hct 26.2 % (37-47) L 12/05/24 05:27 12/05/24 Plt Count 105 K/mm3 (150-450) L 12/05/24 [...] Procedure(s): Esophagogastroduodenoscopy Anesthesia History Anesthesia History - computer project manager: Anesthesia History - computer project manager Hx Hospitalization Any Problems With Anesthesia Cholinesterase [...] ice at 8 AM.) PONV PONV - computer project manager: PONV - computer project manager Female HX of Motion Sickness HX of N/V After Surgery Non-Smoker Duration of Surgery greater than 60 minutes Number of Risk Factors PONV Score Height & Weight Height & Weight: Anesthesia: Height & Weight Height 5 ft 2 in 12/05/24 11:13 Weight: 115.9 kg 12/05/24 11:13 Body Mass Index (BMI) 46.7 12/04/24 17:11 Respiratory Assessment Respiratory Assessment - computer project manager: Respiratory Tract Infection Hx - computer project manager Hx Respiratory Tract Infection STOP Sleep Apnea STOP Sleep Apnea - computer project manager: STOP Sleep Apnea - computer project manager Hx Hypertension No 12/04/24 17:11 Hx Sleep [...] Tobacco Use History Tobacco Use History - computer project manager: Tobacco Use History - computer project manager Tobacco Use Smoking Status Never smoker 12/04/24 17:11 Hx Tobacco Use No 12/04/24 17:11 Years Smoking Packs Smoked per Day Smoking Cessation Date was within the last 15 years Hx Smoking Cessation Date Hx Smoking Cessation Counseling Hematologic Medial History Hematologic Hx - computer project manager: Hematologic Medical Hx - security attendant Hx of Blood Transfusion No 12/04/24 17:11 [...] confused, unrespo /Reproduction History /Reproductive History - computer project manager: /Reproductive Hx- computer project manager Hx Now Gestational Age (in weeks): EDC: [...] no additional complaints, except as documented. 12/05/24 8885 <Electronically signed by Simba peraza MD> Date _ Simba Her MD Cosigner Signature: Date CC: ~ Signed [facility] Work Phone: 1([phone]) 893-439004-03-2025 Procedure note [facility] Medical Records Department [address] [place] [address] EGD Report MR#: [id number] Acct: [id number] Name: DIAN JANE Rep #:[id number] : 1955 69 From: Francisco Zaman DO [...] Capsule endoscopy Procedure Code(s): --- Professional --- 11633, Small intestinal endoscopy, enteroscopy beyond second portion of duodenum, not including ileum; with control of bleeding (eg, injection, bipolar cautery, unipolar cautery, laser, heater probe, stapler, plasma beach lifeguard) CPT copyright 2021 [employer]. All rights reserved. The codes documented in this report are preliminary and upon parks and recreation manager review may be revised to meet current compliance requirements. Francisco Zaman DO 12/05/2024 6:55:54 PM This report has been signed electronically. Number of Addenda: 0 Note Initiated On: 12/05/2024 6:26 PM 12/05/24 4987 Date _ Francisco Mathias Signature: Date (if indicated) CC: JU Nayak; Francisco Zaman DO ~ Date Dictated: 12/05/241825 Date Transcribed: Vice President Business Development: REA Signed [facility]04-03-2025 Procedure note [facility] Medical Records Department [address] [place] [address] Operative Report - CC Letter MR#: [id number] Acct: [id number] Name: DIAN JANE Rep #:[id number] : 1955 69 From: Francisco Zaman DO [...] been signed electronically. 12/05/241854 Date _ Francisco Mathias Signature: Date (if indicated) CC: JU Nayak; Dr. Hamzah Aguirre MD ~ Date Dictated: 12/05/241825 Date Transcribed: Vice President Business Development: RF Signed [facility]04-03-2025 Consult note [facility] Medical Records Department [address] [place] [address] Consultation - GI 12/05/24 1825 MR#: [id number] Acct: [id number] Name: DIAN JANE Rep #:[id number] : 1955 69 From: Francisco Zaman DO PCP: JU Mishra Status:ADM IN Location: [place] [id number] HPI Consult Data Date of Consult: 12/05/24 HPI Narrative Reason for Consultation: Anemia HPI Narrative: DIAN JANE, is a 69-year-old female with a past medical history of CAD status post 2 stents on Plavix, type 2 diabetes, PARRY with cirrhosis, hypertension, SEVERINO, GERD who presented to the emergency department with a chief complaint of low hemoglobin. Patient states that from May to [facility] where she was originally from she had [...] diagnosed with cirrhosis about one year in [place]. She has not had consistent f/uwith GI [...] with 2 unit PRBCfrom the emergency department [facility] Medical History Bilateral carotid artery disease SEVERINO [...] % (Auto) 45.7 L, Lymph% (Auto) 36.3, [place] % (Auto) 11.5 H, Eos % (Auto) [...] endoscopic evaluation. Charges/Coding Visit Charges Inpatient E&M: 26827 Init Hosp L3 12/05/24 1829 Cosigner Signature (if applicable): CC: JENNIFERC Valdo Nayak~ Signed [facility]04-03-2025 Consult note [facility] Medical Records Department [address] [place] [address] Pre-Anesthesia Evaluation 12/05/24 1651 MR#: [id number] Acct: [id number] Name: DIAN JANE Rep #:[id number] : 1955 69 From: Simba Her MD PCP: JU Mishra Status:ADM IN Y Race: C Location: [place] [address] ASA Classification* ASA Classification ASA Classification: 3 [...] CBC WBC 2.8 K/mm3 (4.4-11.0) L 12/05/24 05:27 12/05/24 RBC 3.63 M/mm3 (4.2-5.4) L 12/05/24 05:27 12/05/24 Hct 26.2 % (37-47) L 12/05/24 05:27 12/05/24 Plt Count 105 K/mm3 (150-450) L 12/05/24 05:27 12/05/24 CHEMISTRY Potassium 3.7 mmol/L (3.3-5.1) 12/05/24 05:27 12/05/24 Sodium 139 mmol/L (133-145) 12/05/24 05:12/05/24 Magnesium 1.8 mg/dL (1.5-2.2) 12/05/24 05:12/05/24 Phosphorus 3.0 mg/dL (2.7-4.5) 12/05/24 05:12/05/24 BUN 6 mg/dL (4-19) 12/05/24 05:12/05/24 Creatinine 0.55 mg/dL (0.70-1.20) L 12/05/24 05: Glucose 90 mg/dL (70-99) 12/05/24 05:27 12/05/24 COAG PT 19.1 SECONDS (11.7-14.9) H 12/05/24 05:11/26 Lab additional comments: Patient had troponins at 13:52 today. They were normalrange. Pre-Assessment Diagnosis/Proposed Procedure Planned Operative Procedure(s): Esophagogastroduodenoscopy Anesthesia History Anesthesia History - computer project manager: Anesthesia History - computer project manager Hx Hospitalization Any Problems With Anesthesia Cholinesterase [...] ice at 8 AM.) PONV PONV - computer project manager: PONV - computer project manager Female HX of Motion Sickness HX of N/V After Surgery Non-Smoker Duration of Surgery greater than 60 minutes Number of Risk Factors PONV Score Height & Weight Height & Weight: Anesthesia: Height & Weight Height 5 ft 2 in 12/05/24 11:13 Weight: 115.9 kg 12/05/24 11:13 Body Mass Index (BMI) 46.7 12/04/24 17:11 Respiratory Assessment Respiratory Assessment - computer project manager: Respiratory Tract Infection Hx - computer project manager Hx Respiratory Tract Infection STOP Sleep Apnea STOP Sleep Apnea - computer project manager: STOP Sleep Apnea - computer project manager Hx Hypertension No 12/04/24 17:11 Hx Sleep [...] Tobacco Use History Tobacco Use History - computer project manager: Tobacco Use History - computer project manager Tobacco Use Smoking Status Never smoker 12/04/24 17:11 Hx Tobacco Use No 12/04/24 17:11 Years Smoking Packs Smoked per Day Smoking Cessation Date was within the last 15 years Hx Smoking Cessation Date Hx Smoking Cessation Counseling Hematologic Medial History Hematologic Hx - computer project manager: Hematologic Medical Hx - security attendant Hx of Blood Transfusion No 12/04/24 17:11 [...] confused, unrespo /Reproduction History /Reproductive History - computer project manager: /Reproductive Hx- computer project manager Hx Now Gestational Age (in weeks): EDC: [...] 12/05/24 1659 stu MAS> Date _ Simba Lewis Signature: Date CC: ~ Signed [facility]04-03-2025 Progress note Author Hamzah Aguirre [facility] Note Date/Time December 05, 2024 11:1 5am [facility] Medical Records Department [address] [place] [address] Progress Note - Hospitalist 12/05/24 1108 MR#: [id number] Acct: [id number] Name: DIAN JANE Rep #:[id number] : 1955 69 From: Hamzah Aguirre MD PCP: JU Mishra Status:ADM IN Location: [place] [address] Reason for Visit Reason for Visit: Diagnoses [...] % (Auto) 45.7 L, Lymph% (Auto) 36.3, [place] % (Auto) 11.5 H, Eos % (Auto) [...] evidence of splenomegaly. Sigmoid diverticulosis. Reading Location: [facility]- Physical Exam Narrative GENERAL: cooperative HEENT: [...] she has had extensive workup at this [facility] in [place]. Requested for old records. Patient stool guaiac [...] documentation, 50-minute Charges/Coding Visit Charges Inpatient E&M: 92587 Subs Hosp L3 12/05/24 1115 <Electronically signed by Hamzah Aguirre MD> Cosigner Signature (if applicable): CC: ~ Signed [facility] Work Phone: 1(468) 779-603404-03-2025 Progress note [facility] Medical Records Department [address] [facility] [place] [address] Progress Note - Hospitalist 12/05/24 1108 MR#: [id number] Acct: [id number] Name: DIAN JANE Rep #:[id number] : 1955 69 From: Hamzah Aguirre MD PCP: UJ Mishra Status:ADM IN Location: [place] [address] Reason for Visit Reason for Visit: Diagnoses [...] 12/04/24 12/05/24 23:59 23:59 23:59 Intake Total 2519 110 / 110 Output Total 0 / 0 Balance 2519 110 / 110 Lab / Micro Data [...] % (Auto) 45.7 L, Lymph% (Auto) 36.3, [place] % (Auto) 11.5 H, Eos % (Auto) [...] evidence of splenomegaly. Sigmoid diverticulosis. Reading Location: [place] [address] Physical Exam Narrative GENERAL: cooperative HEENT: Atraumatic; [...] patient she has had extensive workup at [facility] in [place]. Requested for old records. Patient stool guaiac [...] documentation, 50-minute Charges/Coding Visit Charges Inpatient E&M: 07327 Subs Hosp L3 12/05/24 1115 Cosigner Signature (if applicable): CC: ~ Signed [facility]04-02-2025 History and physical note Author Hamzah Aguirre [facility] Note Date/Time December 04, 2024 1:59 pm [facility] Medical Records Department [address] [place] [address] H&P Exam - Hospitalist 12/04/24 1313 MR#: [id number] Acct: [id number] Name: DIAN JANE Rep #:[id number] : 1955 69 From: Hamzah Aguirre MD [...] capsule endoscopy as well as colonoscopy at [facility] in [facility]. Patient was diagnosed with AVMs.. Patient apparently did move to [place] and has been followed by Dr. Zaman [...] monitored bed with consultation placed to GI [facility] Medical History Bilateral carotid artery disease SEVERINO [...] % (Auto) 46.9 L, Lymph% (Auto) 32.0, [place] % (Auto) 14.7 H, Eos % (Auto) 4.3, Baso % (Auto) 1.4 H, Absolute Neuts (auto) 1.3 L, Absolute Lymphs (auto) 0.89, Nucleated RBC % 0, DiffPath Review May foll, Sodium 139, Potassium 3.4, Chloride 108, [...] she has had extensive workup at this [facility] in [place]. Requested for old records. Patient stool guaiac [...] Multi Select Codes Visit Charges Visit Charges: 82230 Init Hosp Hospitalists' Procedures Procedures: 06908 Advncd Care Plan 30 Min 12/04/24 1357 <Electronically signed by Hamzah Aguirre MD> Cosigner Signature (if applicable): CC: AUDIO PRODUCTION INSTRUCTOR-C Valdo Nayak; Dr. Hamzah Aguirre MD~ Signed [facility] Work Phone: 1(362) 739-356604-02-2025 History and physical note Author Hamzah Aguirre [facility] Note Date/Time December 04, 2024 1:59 pm [facility] Medical Records Department [address] [place] [address] H&P Exam - Hospitalist 12/04/24 1313 MR#: [id number] Acct: [id number] Name: DIAN JANE Rep #:[id number] : 1955 69 From: Hamzah Aguirre MD [...] capsule endoscopy as well as colonoscopy at [facility] in [facility]. Patient was diagnosed with AVMs.. Patient apparently did move to [place] and has been followed by Dr. Zaman [...] monitored bed with consultation placed to GI [facility] Medical History Bilateral carotid artery disease SEVERINO [...] % (Auto) 46.9 L, Lymph% (Auto) 32.0, [place] % (Auto) 14.7 H, Eos % (Auto) [...] she has had extensive workup at this [facility] in [place]. Requested for old records. Patient stool guaiac [...] Multi Select Codes Visit Charges Visit Charges: 25574 Init Hosp Hospitalists' Procedures Procedures: 56062 Advncd Care Plan 30 Min 12/04/24 1357 <Electronically signed by Hamzah Aguirre MD> Cosigner Signature (if applicable): CC: AUDIO PRODUCTION INSTRUCTOR-Guille Nayak; Dr. Hamzah Aguirre MD~ Signed [facility] Work Phone: 1(330) 561-734404-02-2025 Discharge summary Author Naga Harsha [facility] Note Date/Time December 04, 2024 1:04 pm [facility] Medical Records Department [address] [place] [address] Emergency Department Summary 12/04/24 MR#: [id number] Acct: [id number] Name: DIAN JANE Rep #:[id number] : 1955 69 From: Naga Mcleod DO [...] of low hemoglobin. Patient states that from [facility] in [place] where she was originally from she had [...] she felt like her symptoms were worsening. [facility] Medical History Bilateral carotid artery disease SEVERINO [...] her previous workups that were done in [place] he will see the patient in consult Will reach out to the hospitalist for admission. Patient's EKG reviewed showed sinus rhythm with a rate of 97 bpm. Discussed case with hospitalist Dr. Kittoe who accept patient for admission. Patient notified [...] (Auto) 46.9 L Lymph % (Auto) 32.0 [place] % (Auto) 14.7 H Eos % (Auto) [...] evidence of splenomegaly. Sigmoid diverticulosis. Reading Location: [place] [address] Discharge Plan Triage Chief Complaint: Chest Pain [...] UNSURE OF STRENGTH Primary Care Provider: Valdo Nayak Referrals: Valdo Nayak, AUDIO PRODUCTION INSTRUCTOR-C [Primary Care Provider] - Print Language: Mauritanian Disposition Disposition: Acute Care Hospital [facility] What to do if you have Problems For any increased pain, shortness of breath, bleeding, nausea or vomiting, chestpain, or any unexpected problems, contact your Primary Care Provider. Call [facility] ([phone]) or report to the closest Emergency Room. Call 911 if necessary. 12/04/24 1304 <Electronically signed by Naga Mcleod DO> Cosigner Signature (if applicable): CC: AUDIO PRODUCTION INSTRUCTOR-C Valdo Nayak ~ Signed [facility] Work Phone: 1(971) 593-375804-02-2025 Discharge summary Author Naga [facility] Note Date/Time December 04, 2024 1:04 pm [facility] Medical Records Department [address] [place] [address] Emergency Department Summary 12/04/24 MR#: [id number] Acct: [id number] Name: DIAN JANE Rep #:[id number] : 1955 69 From: Naga Mcleod DO [...] of low hemoglobin. Patient states that from [place] down in [place] where she was originally from she had [...] she felt like her symptoms were worsening. [facility] Medical History Bilateral carotid artery disease SEVERINO [...] her previous workups that were done in [place] he will see the patient in consult [...] (Auto) 46.9 L Lymph % (Auto) 32.0 [place] % (Auto) 14.7 H Eos % (Auto) [...] evidence of splenomegaly. Sigmoid diverticulosis. Reading Location: [place] [address] Discharge Plan Triage Chief Complaint: Chest Pain [...] UNSURE OF STRENGTH Primary Care Provider: Valdo Nayak Referrals: Valdo Nayak, AUDIO PRODUCTION INSTRUCTOR-C [Primary Care Provider] - Print Language: Mauritanian Disposition Disposition: Acute Care Hospital [facility] What to do if you have Problems For any increased pain, shortness of breath, bleeding, nausea or vomiting, chestpain, or any unexpected problems, contact your Primary Care Provider. Call [facility] ([phone]) or report to the closest Emergency Room. Call 911 if necessary. 12/04/24 1304 <Electronically signed by Naga Mcleod DO> Cosigner Signature (if applicable): CC: AUDIO PRODUCTION INSTRUCTOR-C Valdo Nayak ~ Signed [facility] Work Phone: 1([phone]) 175-858904-02-2025 History and physical note [facility] Medical Records Department [address] [place] [address] H&P Exam - Hospitalist 12/04/24 1313 MR#: [id number] Acct: [id number] Name: DIAN JANE Rep #:[id number] : 1955 69 From: Hamzah Aguirre MD [...] capsule endoscopy as well as colonoscopy at [facility] in [facility]. Patient was diagnosed with AVMs.. Patient apparently did move to [place] and has been followed by Dr. Zaman [...] monitored bed with consultation placed to GI [facility] Medical History Bilateral carotid artery disease SEVERINO [...] % (Auto) 46.9 L, Lymph% (Auto) 32.0, [place] % (Auto) 14.7 H, Eos % (Auto) [...] evidence of splenomegaly. Sigmoid diverticulosis. Reading Location: [facility] Assessment & Plan Assessment/Plan (1) Microcytic anemia: PLAN: Plan Patient is a 69-year-old female presenting with severe anemia. Patient was alsofound to have markedmicrocytosis with hemoglobin 5.7 and MCV of 68. Stool guaiac came back positive admitted to monitored bed for subsequent management 1. Severe anemia ? Secondary to suspected chronic blood loss anemia per patient she has had extensive workup at [facility] in [place]. Requested for old records. Patient stool guaiac [...] Multi Select Codes Visit Charges Visit Charges: 61888 Init Hosp L3 Hospitalists' Procedures Procedures: 07766 Advncd Care Plan 30 Min 12/04/24 1359 Cosigner Signature (if applicable): CC: AUDIO PRODUCTION INSTRUCTOR-C Valdo Nayak; Dr. Hamzah Aguirre MD~ Signed [facility]04-02-2025 Discharge summary [facility] Medical Records Department [address] [place] [address] Emergency Department Summary 12/04/24 MR#: [id number] Acct: [id number] Name: DIAN JANE Rep #:[id number] : 1955 69 From: Naga Mcleod DO [...] of low hemoglobin. [facility] [place] [facility] she was originally from she had [...] she felt like her symptoms were worsening. [facility] Medical History Bilateral carotid artery disease SEVERINO [...] her previous workups that were done in [place] he will see the patient in consult [...] (Auto) 46.9 L Lymph % (Auto) 32.0 [place] % (Auto) 14.7 H Eos % (Auto) [...] evidence of splenomegaly. Sigmoid diverticulosis. Reading Location: [place] [address] Discharge Plan Triage Chief Complaint: Chest Pain [...] UNSURE OF STRENGTH Primary Care Provider: Valdo Nayak Referrals: Valdo Nayak NP-C [Primary Care Provider] - Print Language: Mauritanian Disposition Disposition: Acute Care Hospital [facility] What to do if you have Problems For any increased pain, shortness of breath, bleeding, nausea or vomiting, chestpain, or any unexpected problems, contact your Primary Care Provider. Call [facility] ([phone]) or report tothe closest Emergency Room. Call 911 if necessary. 12/04/24 1304 Cosigner Signature (if applicable): CC: AUDIO PRODUCTION INSTRUCTORJohannaC Vlado Nayak ~ Signed [facility]04-02-2025 Radiology Diagnostic study note [facility] Imaging Services [address] [place], [place] [address] CTA Abd/Pelvis W/WO Contrast MR#: [id number] Acct: [id number] Name: DIAN JANE Rep #: [id number] : 1955 F 69 From: Mauricio Pace MD PCP: JU Mishra Status: PRE ER Study:CTA Abd/Pelvis W/WO Contrast Date of Ex am: 12/04/24 Exam# [id number] Ordering Dr: Jean Mcleod DO PROCEDURE: CTA [...] evidence of splenomegaly. Sigmoid diverticulosis. Reading Location: [place] [address] CC: JU Nayak; Dr. Naga Mcleod DO ~ Vice President Business Development: Signed [facility]04-02-2025 Evaluation note* Diagnosis Onset Date Resolution Status Admit Date Cirrhosis acute December 04 7:26am GERD (gastroesophageal reflu x disease) acute December 04, 2024 7:26am Anemia acute December 04 1:02pm Coronary artery disease acute A pril 2024 1:02pm GI (gastrointestinal bleed) acute December 04, 2024 1:02pm Microcytic anemia acute December 042024 1:02pm [facility] Work Phone: 1(806) [phone] Evaluation note* Diagnosis Onset Date Resolution Status [...] (gastrointestinal bleed) resolved December 11, 2024 10:14am [facility] Work Phone: 1(452) 118-112104-02-2025 Evaluation note* Diagnosis Onset Date Resolution Status [...] hypertension acute January 08, 2025 8: 42am [facility] Work Phone: 1([phone]) 442-356404-02-2025 Evaluation note* Diagnosis Onset Date Resolution Status [...] 08, 2025 8:42am Coronary artery disease acute ay 2024 8:42am Esophageal varices acute January 8:42am Essential (primary) hypertension acute January 08, 2025 8: 42am Cirrhosis acute March 05, 2025 8:45am [facility] Work Phone: 1([phone]) 387-645904-02-2025 Evaluation note* Diagnosis Onset Date Resolution Status [...] 2025 8:42am Coronary artery disease acute M ay 2024 8:42am Esophageal varices acute January 8:42am Essential (primary) hypertension acute January 08, 2025 8: 42am Cirrhosis acute March 05, 2025 8:45am Esophageal varices acute March 052024 8:45am GERD (gastroesophageal reflu x disease) acute March 05, 2025 8 :45am [facility] Work Phone: 1([phone]) 630-410602-02-2025 NoteHNO ID: [id number] Author: ANITHA MAGANA APRN.VENEER REPAIRER MACHINE Service: ? Author Type: Nurse Practitioner Type: Progress Notes Filed: 10/06/2024 12:08 Note Text: This note was created using NoteWriter. Subjective [...] history is provided by the patient. No bilingual speech language pathologist was used. Eye Problem This is a [...] express care referred to ED Anitha Magana APRN.[facility]02-02-2025 History of Present illness Narrative* Anitha Magana APRN.VENEER REPAIRER MACHINE - 10/06/2024 11:39 AM EST This note was created using Feedjitriter. Subjective Dian Jane is a 69 year [...] history is provided by the patient. No bilingual speech language pathologist was used. Eye Problem This is a [...] express care referred to ED Anitha Magana APRN.AMBREEN documented in this encounterHillsboro ClinicDischar summary Author Hamzah Aguirre [facility] Note Date/Time December 06, 2024 9:34 am [facility] Medical Records Department [address] [place] [address] Discharge Summary 12/06/24 0929 MR#: [id number] Acct: [id number] Name: DIAN JANE Rep #:[id number] : 1955 69 From: Hamzah Aguirre MD PCP: JU Mishra Status:ADM IN Location: [facility] [id number] Providers Date of Admission: 12/04/24 Date of [...] she has had extensive workup at this [facility] in [place]. Requested for old records. Patient stool guaiac [...] Neut % (Auto) 50.1, Lymph %(Auto) 30.3, [place] % (Auto) 14.0 H, Eos % (Auto) [...] Provider: Hamzah Aguirre Primary Care Provider: Valdo Nayak Discharge Orders/Prescriptions Prescriptions: New nadolol 20 mg [...] (To be scheduled for capsule endoscopy) Valdo Nayak, AUDIO PRODUCTION INSTRUCTOR-C [Primary Care Provider] - Within 2 Weeks Disposition Disposition (needs filled in before D/C Order can be placed): Home, Self Care Charges/Coding Visit Charges Inpatient E&M: 60478 Disch Hosp >30min 12/06/24 0934 <Electronically signed by Hamzah Aguirre MD> Cosigner Signature (if applicable): CC: JU Nayak; Dr. Hamzah Aguirre MD~ Signed [facility] Work Phone: Evaluation note* Diagnosis Acute left eye pain- Primary Pain in or around eye Subconjunctival hemorrhage of left eye [facility] SEVERINO (obstructive sleep apnea)- Primary Obstructive sleep apnea (adult) (pediatric) Morbid obesity with BMI of 40.0-44.9, adult [facility] Pain of left heel- Primary Pain in limb Heel spur, left Pain of left calf Pain in limb Pain of left heel Pain in limb Pain of left calf Pain in limb [facility] Diagnosis Pain of left heel Pain in limb [facility] Diagnosis Pain of left calf Pain in limb [facility] (narrative)No reason for referral information availableWNationwide Children's [facility] Work Phone: Reason for visit Narrative* Diagnostic Procedure Only (Urgent) - Closed Specialty Diagnoses / Procedures Referred By Contac t Referred To Contact XR IMAGING Diagnoses Pain of left heel Procedures XR ANKLE GENERAL 3V AP/LAT/OBL LEFT RADEX ANKLE COMPLETE MINIMUM 3 VIEWS Venkata Danielle MD [address] [place] [address] Phone: tel: fax: [place] [phone] Referral ID Status Reason Start Date Expiration Date V isits Requested Visits Authorized [id number] Closed Auto-Generate d Referral 01/06/2025 02/05/2026 1 1 [facility] Chief Complaint and Reason for Visit Chief [...] December 04, 2024 1:02pm GI (gastrointestinal bleed) December 04 1:02pm Microcytic anemia December 04, 2024 1:02 [...] Anemia December 06, 2024 7:38 pm Hospital December 11, 2024 10:1 4am Reason for [...] Anemia December 06, 2024 7:38 pm Hospital December 11, 2024 10:1 4am RUQ PAIN [...] 4am GI (gastrointestinal bleed) December 11 10:14am Aortic stenosis January 08, 2025 8:42am Coronary artery disease January 08, 2025 8: 42am Esophageal varices January 08, 2025 8:42am Essential (primary) hypertension January 8:42am Chief Complaint Admit Date New Patient December 04, 2024 7:26 am INT LABS December 04, 2024 8:27 am ANEMIA December 04, 2024 1:02 pm Ches pain, Abnl labs December 04, 2024 1:1 3pm Anemia December 05, 2024 11:0 8am Shortness of breath December 05, 2024 1:45 pm Anemia December 05, 2024 6:25 pm Anemia December 06, 2024 9:29 am Anemia December 06, 2024 7:38 pm Hospital December 11, 2024 10:1 4am RUQ PAIN December 20, 2024 10: 32am CAD/EDEMA (ERMA) January 08, 2025 8:42am Obstructive sleep apnea (adult) (pediatr ic) January 28, 2025 9:10am MURMUR February 24, 2025 7:43 am SCREENING February 26, 2025 7:12 am Chief Complaint Admit Date New Patient December 04, 2024 7:26 am INT LABS December 04, 2024 8:27 am ANEMIA December 04, 2024 1:02 pm Ches pain, Abnl labs December 04, 2024 1:1 3pm Anemia December 05, 2024 11:0 8am Shortness of breath December 05, 2024 1:45 pm Anemia December 05, 2024 6:25 pm Anemia December 06, 2024 9:29 am Anemia December 06, 2024 7:38 pm Hospital December 11, 2024 10:1 4am RUQ PAIN December 20, 2024 10: 32am CAD/EDEMA (ERMA) January 08, 2025 8:42am Obstructive sleep apnea (adult) (pediatr ic) January 28, 2025 9:10am MURMUR February 24, 2025 7:43 am SCREENING February 26, 2025 7:12 am 3 M FU March 05, 2025 8:45a m Reason for Visit Admit Date Cirrhosis December [...] 2025 8:42am Essential (primary) hypertension January 8:42am Cirrhosis March 05, 2025 8:45a m Chief Complaint Admit Date New Patient December 04, 2024 7:26 am [...] (adult) (pediatr ic) January 28, 2025 9:10am MURMUR February 24, 2025 7:43 am SCREENING February 26, 2025 7:12 am 3 M FU March 05, 2025 8:45a m abn labs March 05, 2025 2:18p m Reason for Visit Admit Date Cirrhosis December 04, 2024 7:26 am GERD (gastroesophageal reflux disease) A pril 2024 7:26am Coronary artery disease December 04, 2024 1:02pm Microcytic anemia December 04, 2024 1:02 pm Anemia December 04, 2024 1:02 pm GI (gastrointestinal bleed) December 04 1:02pm Cirrhosis December 11, 2024 10:1 4am Anemia December 11, 2024 10:1 4am GI (gastrointestinal bleed) December 11 10:14am Aortic stenosis January 08, 2025 8:42am Coronary artery disease January 08, 2025 8: 42am Esophageal varices January 08, 2025 8:42am Essential (primary) hypertension January 8:42am Cirrhosis March 05, 2025 8:45a m Esophageal varices March 05, 2025 8:45a m GERD (gastroesophageal reflux disease) J payal 2024 8:45am Advance Directives Advance Directive Response Recorded Date/ Time Living Will No October 06 12:58pm Do you have a Healthcare Power of Internet Assessor? No October 06, 2024 12:58pm Living Will No December 04, 2024 10:36am Do you have a Healthcare Power of Internet Assessor? No December 04, 2024 10:36am Advance Directive Response Recorded Date/ Time Living Will No October 06 12:58pm Do you have a Healthcare Power of Internet Assessor? No October 06, 2024 12:58pm Living Will No December 04, 2024 5:11pm Do you have a Healthcare Power of Internet Assessor? No December 04, 2024 5:11pm Advance Directive Response Recorded Date/ Time Living Will No December 04, 2024 5:11pm Do you have a Healthcare Power of Internet Assessor? No December 04, 2024 5:11pm Advance Directive Response Recorded Date/ Time Living Will No December 04, 2024 5:11pm Do you have a Healthcare Power of Internet Assessor? No December 04, 2024 5:11pm Do you have a Healthcare Power of Internet Assessor? Yes March 05, 2025 2:36pm Name of Medical Power of Internet Assessor yasemin child ers March 05, 2025 2:36pm Summary Purpose Family History Relationship Condition Age at Onset Recorded Date/T aimee mother History of heart valve replacement Unknow n sister Myocardial infarction Unknown Additional Source Comments Source Comments (unrecognize d section and content) In the event this informatio n is protected by the [facility] Confidentiality of Alcohol and Drug Abuse Patient Records regulations: The Federal rules restrict any use of the information to criminally investigate or prosecute any alcohol or drug abuse patient.[facility] the event this information is protected by the Federal Confidentiality of Alcohol and Drug Abuse Patient Records regulations: The Federal rules restrict any use of the information to criminally investigate or prosecute any alcohol or drug abuse patient.[facility] the event this information is protected by the Federal Confidentiality of Alcohol and Drug Abuse Patient Records regulations: The Federal rules restrict any use of the information to criminally investigate or prosecute any alcohol or drug abuse patient.[facility] the event this information is protected by the Federal Confidentiality of Alcohol and Drug Abuse Patient Records regulations: The Federal rules restrict any use of the information to criminally investigate or prosecute any alcohol or drug abuse patient.[facility] the event this information is protected by the Federal Confidentiality of Alcohol and Drug Abuse Patient Records regulations: The Federal rules restrict any use of the information to criminally investigate or prosecute any alcohol or drug abuse patient.[facility] Reason for Visit (unrecogniz ed section and content) Reason Comments Headache Left eye swollen and red, sharp pain in zoroastrianism last night, still have dull ache behind left eye x 1 day Reason Comments New Patient Has Difficulty falli ng asleep. Specialty Diagnoses / Procedures Referred By Liz montelongo Referred To Contact Sleep Medicine Diagnoses SEVERINO (obstructive sleep apnea) Valdo Nayak, SAMUEL [address] [place] [address] Phone: tel: fax: [facility] [address] [place] [address] Referral ID Status Reason Start Date Expiration Date V isits Requested Visits Authorized [id number] Pending Review 11/20/2024 12/15/2025 1 1 Reason Onset Date Comments Results 01/06/2025 US DVT (-) Reason Comments left foot pain X 1 day-cannot recal l an injury Reason Comments Radiology US Specialty Diagnoses / Procedures Referred By Contac t Referred To Contact US IMAGING Diagnoses Pain of left calf Procedures US DVT LOWER LEFT DUP-SCAN XTR VEINS UNILATERAL/LIMITED STUDY Venkata Danielle MD [address] [place] [address] Phone: tel: fax: [place] [phone] Referral ID Status Reason Start Date Expiration Date V isits Requested Visits Authorized [id number] Closed Auto-Generate d Referral 01/06/2025 02/05/2026 1 1 Care Teams (unrecognized sec tion and content) Team Status: Active Member Role Status Dates Valdo Erma , AUDIO PRODUCTION INSTRUCTOR-C Primary Care Provider Active Team Status: Inactive [...] Member Role Status Dates Valdo Erma , AUDIO PRODUCTION INSTRUCTOR-C Primary Care Provider Active Start: December 04, 2024 End: December 04, 2024 Valdo Nayak , AUDIO PRODUCTION INSTRUCTOR-C Referring Provider Active St art: December 04, 2024 End: December 04, 2024 SHANNON Norman Attending Provider Active Start: December 04, 2024 End: December 04, 2024 Team Status: Active Member Role Status Dates Valdojuli Nayak , AUDIO PRODUCTION INSTRUCTOR-C Primary Care Provider Active Start: December 04, 2024 SHANNON Norman Attending Provider Active Start: December 04, 2024 SHANNON Norman Referring Provider Active Start: December 04, 2024 Team Status: Active Member Role Status Dates Valdo Nayak , AUDIO PRODUCTION INSTRUCTOR-C Primary Care Provider Active Start: December 04, 2024 Dr. Naga Mcleod DO Emergency Provider Active Start: December 04, 2024 Dr. Hamzah Aguirre MD Admit Provider Active Star t: December 04, 2024 Dr. Hamzah Aguirre MD Attending Provider Active Start: December 04, 2024 Team Status: Active Member Role Status Dates Valdojuli Nayak , AUDIO PRODUCTION INSTRUCTOR-C Primary Care Provider Active Start: December 04, 2024 Dr. Naga Mcleod DO Emergency Provider Active Start: December 04, 2024 Dr. Hamzah Aguirre MD Attending Provider Active Start: December 04, 2024 Team Status: Inactive Member Role Status Dates Valdo Nayak , AUDIO PRODUCTION INSTRUCTOR-C Primary Care Provider Active Start: December 04, 2024 End: December 04, 2024 SHANNON Norman Attending Provider Active Start: December 04, 2024 End: December 04, 2024 SHANNON Norman Referring Provider Active Start: December 04, 2024 End: December 04, 2024 Team Status: Active Member Role Status Dates Valdojuli Nayak , AUDIO PRODUCTION INSTRUCTOR-C Primary Care Provider Active Start: December 05, 2024 Dr. Naga Mcleod DO Emergency Provider Active Start: December 05, 2024 Dr. Hamzah Aguirre MD Admit Provider Active Star t: December 05, 2024 Dr. Hamzah Aguirre MD Attending Provider Active Start: December 05, 2024 Dr. Hamzah Aguirre MD Other Provider Active Star t: December 05, 2024 Team Status: Inactive Member Role Status Dates Valdo Nayak , AUDIO PRODUCTION INSTRUCTOR-C Primary Care Provider Active Start: December 04, [...] Status: Active Member Role Status Dates Valdo Nayak AUDIO PRODUCTION INSTRUCTOR-C Primary Care Provider Active Start: December 05, 2024 Dr. Naga Mcleod DO Emergency Provider Active Start: December 05, 2024 Dr. Hamzah Aguirre MD Admit Provider Active Star t: December 05, 2024 Dr. Hamzah Aguirre MD Other Provider Active Star t: December 05, 2024 Dr. Francisco Zaman DO Attending Provider Active Start: December 05, 2024 Team Status: Active Member Role Status Dates Valdo Nayak AUDIO PRODUCTION INSTRUCTOR-C Primary Care Provider Active Start: December 06, 2024 Dr. Naga Mcleod DO Emergency Provider Active Start: December 06, 2024 Dr. Hamzah Aguirre MD Admit Provider Active Star t: December 06, 2024 Dr. Hamzah Aguirre MD Attending Provider Active Start: December 06, 2024 Dr. Hamzah Aguirre MD Other Provider Active Star t: December 06, 2024 Team Status: Active Member Role Status Dates Valdo Nayak AUDIO PRODUCTION INSTRUCTOR-C Primary Care Provider Active Start: December 05, 2024 End: December 05, 2024 Dr. Harpal Cruz MD Attending Provider Active S tart: December 05, 2024 End: December 05, 2024 Dr. Harpal Cruz MD Referring Provider Active S tart: December 05, 2024 End: December 05, 2024 Team Status: Active Member Role Status Dates Valdo Nayak AUDIO PRODUCTION INSTRUCTOR-C Primary Care Provider Active Start: December 05, 2024 Dr. Naga Mcleod , DO Emergency Provider Active Start: December 05, [...] December 11, 2024 End: December 11, 2024 Grass Farm Laborer Relationship Specialty Start Date End Date Valdo Nayak NP [address] [place] [address] PCP - General Family Medicine 01/06/25 Grass Farm Laborer Relationship Specialty Start Date End Date Valdo Nayak NP [address] [place] [address] PCP - General Family Medicine 01/06/25 Grass Farm Laborer Relationship Specialty Start Date End Date Valdo Nayak NP [address] [place] [address] PCP - General Family Medicine 01/06/25 Team Status: Inactive Member Role Status Dates Valdo Nayak AUDIO PRODUCTION INSTRUCTOR-C Primary Care Provider Active Start: December 20, 2024 End: December 20, 2024 SHANNON Norman Attending Provider Active Start: December 20, 2024 End: December 20, 2024 SHANNON Norman Referring Provider Active Start: December 20, 2024 End: December 20, 2024 Team Status: Inactive Member Role Status Dates Valdo Nayak AUDIO PRODUCTION INSTRUCTOR-C Primary Care Provider Active Start: January 08, 2025 End: January 08, 2025 Valdo Nayak AUDIO PRODUCTION INSTRUCTOR-C Referring Provider Active St art: January 08, 2025 End: January 08, 2025 Dr. Harpal Cruz MD Attending Provider Active S tart: January 08, 2025 End: January 08, 2025 Team Status: Inactive Member Role Status Dates Valdo Nayak AUDIO PRODUCTION INSTRUCTOR-C Primary Care Provider Active Start: January 28, 2025 End: January 28, 2025 Dr. Humberto Barrera MD Attending Provider Active Start: January 28, 2025 End: January 28, 2025 Dr. Humberto Barrera MD Referring Provider Active Start: January 28, 2025 End: January 28, 2025 Team Status: Active Member Role/Relationship Status Dates Valdo Nayak AUDIO PRODUCTION INSTRUCTOR-C Primary Care Provider Active Team Status: Inactive Member Role/Relationship Status Dates Valdo Nayak AUDIO PRODUCTION INSTRUCTOR-C Primary Care Provider Active Start: December 04, 2024 End: December 04, 2024 Valdo Nayak AUDIO PRODUCTION INSTRUCTOR-C Referring Provider Active St art: December 04, 2024 End: December 04, 2024 SHANNON Norman Attending Provider Active Start: December 04, 2024 End: December 04, 2024 Team Status: Inactive Member Role/Relationship Status Dates Valdo Nayak AUDIO PRODUCTION INSTRUCTOR-C Primary Care Provider Active Start: December 04, 2024 End: December 04, 2024 SHANNON Norman Attending Provider Active Start: December 04, 2024 End: December 04, 2024 SHANNON Norman Referring Provider Active Start: December 04, 2024 End: December 04, 2024 Team Status: Inactive Member Role/Relationship Status Dates Valdo Nayak , AUDIO PRODUCTION INSTRUCTOR-C Primary Care Provider Active Start: December 04, 2024 End: December 06, 2024 Dr. Naga Mcleod DO Emergency Provider Active Start: December 04, 2024 End: December 06, 2024 Dr. Hamzah Aguirre MD Admit Provider Active Star t: December 04, 2024 End: December 06, 2024 Dr. Hamzah Aguirre MD Attending Provider Active Start: December 04, 2024 End: December 06, 2024 Team Status: Active Member Role/Relationship Status Dates Valdo Nayka AUDIO PRODUCTION INSTRUCTOR-C Primary Care Provider Active Start: December 04, 2024 Dr. Naga Mcleod DO Emergency Provider Active Start: December 04, 2024 Dr. Hamzah Aguirre MD Attending Provider Active Start: December 04, 2024 Team Status: Active Member Role/Relationship Status Dates Valdo Nayak AUDIO PRODUCTION INSTRUCTOR-C Primary Care Provider Active Start: December 05, 2024 Dr. Naga Mcleod DO Emergency Provider Active Start: December 05, 2024 Dr. Hamzah Aguirre MD Admit Provider Active Star t: December 05, 2024 Dr. Hamzah Aguirre MD Attending Provider Active Start: December 05, 2024 Dr. Hamzah Aguirre MD Other Provider Active Star t: December 05, 2024 Team Status: Active Member Role/Relationship Status Dates Valdo Nayak AUDIO PRODUCTION INSTRUCTOR-C Primary Care Provider Active Start: December 05, 2024 End: December 05, 2024 Dr. Harpal Cruz MD Attending Provider Active S tart: December 05, 2024 End: December 05, 2024 Dr. Harpal Cruz MD Referring Provider Active S tart: December 05, 2024 End: December 05, 2024 Team Status: Active Member Role/Relationship Status Dates Valdo Nayak , AUDIO PRODUCTION INSTRUCTOR-C Primary Care Provider Active Start: December 05, [...] December 05, 2024 Team Status: Active Member Role/Relationship Status Dates Valdo Nayak AUDIO PRODUCTION INSTRUCTOR-C Primary Care Provider Active Start: December 06, 2024 Dr. Naga Mcleod DO Emergency Provider Active Start: December 06, 2024 Dr. Hamzah Aguirre MD Admit Provider Active Star t: December 06, 2024 Dr. Hamzah Aguirre MD Attending Provider Active Start: December 06, 2024 Dr. Hamzah Aguirre MD Other Provider Active Star t: December 06, 2024 Team Status: Active Member Role/Relationship Status Dates Valdo Nayak AUDIO PRODUCTION INSTRUCTOR-C Primary Care Provider Active Start: December 06, [...] December 06, 2024 Team Status: Inactive Member Role/Relationship Status Dates Valdo Nayak AUDIO PRODUCTION INSTRUCTOR-C Primary Care Provider Active Start: December 11, 2024 End: December 11, 2024 Valdo Nayak AUDIO PRODUCTION INSTRUCTOR-C Referring Provider Active St art: December 11, 2024 End: December 11, 2024 SHANNON Norman Attending Provider Active Start: December 11, 2024 End: December 11, 2024 Team Status: Inactive Member Role/Relationship Status Dates Valdo Nayak AUDIO PRODUCTION INSTRUCTOR-C Primary Care Provider Active Start: December 11, 2024 End: December 11, 2024 Vanesa Bonilla NP-C Attending Provider Active Start: December 11, 2024 End: December 11, 2024 Vanesa Bonilla NP-C Referring Provider Active Start: December 11, 2024 End: December 11, 2024 Team Status: Inactive Member Role/Relationship Status Dates Valdo Nayak AUDIO PRODUCTION INSTRUCTOR-C Primary Care Provider Active Start: December 20, 2024 End: December 20, 2024 SHANNON Norman Attending Provider Active Start: December 20, 2024 End: December 20, 2024 SHANNON Norman Referring Provider Active Start: December 20, 2024 End: December 20, 2024 Team Status: Inactive Member Role/Relationship Status Dates Valdo Nayak AUDIO PRODUCTION INSTRUCTOR-C Primary Care Provider Active Start: January 08, 2025 End: January 08, 2025 Valdo Nayak NP-C Referring Provider Active St art: January 08, 2025 End: January 08, 2025 Dr. Harpal Cruz MD Attending Provider Active S tart: January 08, 2025 End: January 08, 2025 Team Status: Inactive Member Role/Relationship Status Dates Valdo Nayak NP-C Primary Care Provider Active Start: January 28, 2025 End: January 28, 2025 Dr. Humberto Barrera MD Attending Provider Active Start: January 28, 2025 End: January 28, 2025 Dr. Humberto Barrera MD Referring Provider Active Start: January 28, 2025 End: January 28, 2025 Team Status: Inactive Member Role/Relationship Status Dates Valdo Nayak NP-C Primary Care Provider Active Start: February 24, 2025 End: February 24, 2025 Dr. Harpal Cruz MD Attending Provider Active S tart: February 24, 2025 End: February 24, 2025 Dr. Harpal Cruz MD Referring Provider Active S tart: February 24, 2025 End: February 24, 2025 JU Plunkett Other Provider Active St art: February 24, 2025 End: February 24, 2025 Team Status: Active Member Role/Relationship Status Dates Valdo Nayak NP-C Primary Care Provider Active Start: February 24, 2025 Dr. Harpal Cruz MD Attending Provider Active S tart: February 24, 2025 Team Status: Active Member Role/Relationship Status Dates Valdo Nayak AUDIO PRODUCTION INSTRUCTOR-C Primary Care Provider Active Start: February 26, 2025 Valdo Nayak NP-C Attending Provider Active St art: February 26, 2025 Valdo Nayak NP-C Referring Provider Active St art: February 26, 2025 Vanesa Chad , AUDIO PRODUCTION INSTRUCTOR-C Other Provider Active St art: February 26, 2025 Team Status: Inactive Member Role/Relationship Status Dates Valdo Nayak AUDIO PRODUCTION INSTRUCTOR-C Primary Care Provider Active Start: February 26, 2025 End: February 26, 2025 Valdo Nayak AUDIO PRODUCTION INSTRUCTOR-C Attending Provider Active St art: February 26, 2025 End: February 26, 2025 Valdo Nayak AUDIO PRODUCTION INSTRUCTOR-C Referring Provider Active St art: February 26, 2025 End: February 26, 2025 Vanesa Bonilla AUDIO PRODUCTION INSTRUCTOR-C Other Provider Active St art: February 26, 2025 End: February 26, 2025 Team Status: Inactive Member Role/Relationship Status Dates Valdo Nayak AUDIO PRODUCTION INSTRUCTOR-C Primary Care Provider Active Start: March 05, 2025 End: March 05, 2025 Valdo Nayak AUDIO PRODUCTION INSTRUCTOR-C Referring Provider Active St art: March 05, 2025 End: March 05, 2025 SHANNON Norman Attending Provider Active Start: March 05, 2025 End: March 05, 2025 Team Status: Active Member Role/Relationship Status Dates Valdo Nayak AUDIO PRODUCTION INSTRUCTOR-C Primary Care Provider Active Start: March 05, 2025 SHANNON Norman Attending Provider Active Start: March 05, 2025 SHANNON Norman Referring Provider Active Start: March 05, 2025 Team Status: Inactive Member Role/Relationship Status Dates Valdo Nayak AUDIO PRODUCTION INSTRUCTOR-C Primary Care Provider Active Start: March 05, 2025 End: March 05, 2025 Dr. Pablo Douglas MD Referring Provider Active Sta rt: March 05, 2025 End: March 05, 2025 Dr. Pablo Douglas MD Emergency Provider Active Sta rt: March 05, 2025 End: March 05, 2025 Goals (unrecognized section and content) Goals may be documented in a n alternate section INFORMATION SOURCE (unrecogn ized section and content) DATE CREATED AUTHOR 12/21/2024 [facility] DATE CREATED AUTHOR AUTHOR'S ORGANIZ ATION 01/09/2025 [facility] DATE CREATED AUTHOR AUTHOR'S ORGANIZ ATION 03/04/2025 [facility] FOR RECORDS PERTAINING TO PATIENTS [...] BE BASED ON THE PRIMARY CLINICAL RECORDS. [employer] [facility]. provides no warranty or guarantee of the accuracy or completeness of information in this document.
== END | disposition home or self-care (01) ==
LOC: LAB 09:19
PROVIDERS: PCP Nurse Practitioner Family; Referring Provider Student in an Organized Health Care Education/Training Program; Visit Provider Student in an Organized Health Care Education/Training Program
DX: K74.60 Unspecified cirrhosis of liver (principal)
CPT/HCPCS: 36415; 80053; 85025; 85610

== ENCOUNTER → 2025-03-18 | Outpatient (CLI) | payer MEDICARE, SELFPAY ==
[2025-03-18 16:05] LABS: Hematocrit 24.4 % (37-47); Hemoglobin 7.1 g/dL (12.0-15.0); Immature Granulocytes Count 0.020 X10^3/uL (0.0-0.0); Mean Corp Hgb Conc 29.1 g/dL (32-36); Mean Corpuscular Volume 70.5 fL (81-99); NRBC Flagged by Analyzer 0 % (0-5); POSITIVE MORPHOLOGY YES; Platelet Count 104 K/mm3 (150-450); RBC Distribution Width CV 21.1 % (11.6-14.6); RBC Distribution Width SD 52.6 fl (35.1-43.9); Red Blood Count 3.46 M/mm3 (4.2-5.4); White Blood Count 3.5 K/mm3 (4.4-11.0)
[2025-03-18 16:06] LABS: Differential Indicated SCAN CRITERIA MET
[2025-03-18 16:33] LABS: Anisocytosis 1+; Hypochromasia 1+
== END | disposition home or self-care (01) ==
LOC: LAB 15:25
PROVIDERS: PCP Nurse Practitioner Family; Referring Provider Student in an Organized Health Care Education/Training Program; Visit Provider Student in an Organized Health Care Education/Training Program
DX: D64.9 Anemia, unspecified (principal)
CPT/HCPCS: 36415; 85025

== ENCOUNTER 2025-03-21 07:50 | Outpatient (CLI) | payer MEDICARE, SELFPAY ==
[2025-03-21 08:16] VITALS: BP 113/57; PULSE 64; RESP 16; TEMP 35.5; O2SAT 99; BMI 47.2
[2025-03-21 08:40] VITALS: BP 106/44; PULSE 60; RESP 16; TEMP 35.8
[2025-03-21 09:50] VITALS: BP 105/57; PULSE 62; RESP 16; TEMP 35.8
[2025-03-21 10:29] VITALS: BP 112/51; PULSE 61; RESP 16; TEMP 35.6; O2SAT 96
[2025-03-21 11:51] VITALS: BP 110/50; PULSE 64; RESP 16; TEMP 35.9; O2SAT 96
== END 2025-03-21 23:59 | disposition home or self-care (01) ==
LOC: MEDOUTP 07:50
PROVIDERS: PCP Nurse Practitioner Family; Referring Provider Student in an Organized Health Care Education/Training Program; Visit Provider Student in an Organized Health Care Education/Training Program
DX: I85.00 Esophageal varices without bleeding (principal); D50.9 Iron deficiency anemia, unspecified
CPT/HCPCS: 36415; 36430; 86850; 86900; 86901; P9016; A4216

== ENCOUNTER → 2025-03-26 | Outpatient (CLI) | payer MEDICARE, SELFPAY ==
--- NOTE | 2025-03-26 09:42 | US_ITS ---
PROCEDURE: ABDOMEN LIMITED 03/26/2025 REASON FOR EXAM: CIRRHOSIS, ASCITES COMPARISON: Limited abdominal ultrasound and CT abdomen pelvis 12/20/2024 FINDINGS: Liver: The liver is normal in size measuring 16.6 cm with heterogeneous, coarse echotexture. The bile ducts are within normal limits. The major portal vein is patent with normal directional flow at midline. Gallbladder: No stones, sludge, wall thickening or tenderness. Common bile duct: Normal measuring 0.2 cm. Pancreas: Visualized portions are sonographically unremarkable. Other: Visualized portions of the right kidney are unremarkable. No right upper quadrant ascites. US/Abdomen Limited IMPRESSION: Liver cirrhosis. Reading Location: [id number]
== END | disposition home or self-care (01) ==
LOC: US 09:39
PROVIDERS: PCP Nurse Practitioner Family; Referring Provider Student in an Organized Health Care Education/Training Program; Visit Provider Student in an Organized Health Care Education/Training Program
DX: K74.60 Unspecified cirrhosis of liver (principal)
CPT/HCPCS: 76705

== ENCOUNTER 2025-03-27 09:52 | Day surgery (SDC) | payer MEDICARE, SELFPAY ==
--- NOTE | 2025-03-25 16:24 | PAT.ANESEVAL ---
Pre-Assessment Diagnosis/Proposed Procedure Planned Operative Procedure(s): COLONOSCOPY, EGD Anesthesia History Anesthesia History - foreign language interpreter: Anesthesia History - foreign language interpreter Hx Hospitalization Yes: 12/2024 EGD- VARICES 03/25/25 08:50 Any Problems With Anesthesia No 03/25/25 08:50 Cholinesterase deficiency No 03/25/25 08:50 You/Your Family Experience No 03/25/25 08:50 fever (hyperthermia) with Relationship Recent Exposure to Contagious No 12/05/24 16:42 Disease Does patient have nerve No 03/25/25 08:50 stimulator Patient instructed to have device shut off --Does patient have Pacemaker or ICD? When Was Last Pacemaker Check QUESTION #4 FULL TEXT: You/Your Family Experience fever (hyperthermia) with Anesthesia Last Oral Intake Last Oral intake: Last Oral Intake NPO since Meds taken in AM with sips of water? Meds patient instructed to take am of surgery PONV PONV - foreign language interpreter: PONV - foreign language interpreter Female Yes 03/25/25 08:50 HX of Motion Sickness No 03/25/25 08:50 HX of N/V After Surgery No 03/25/25 08:50 Non-Smoker Yes 03/25/25 08:50 Duration of Surgery greater No 03/25/25 08:50 than 60 minutes Number of Risk Factors 2 03/25/25 08:50 PONV Score Moderate Risk 03/25/25 08:50 Height & Weight Height & Weight: Anesthesia: Height & Weight Height 5 ft 1 in 03/21/25 08:16 Respiratory Assessment Respiratory Assessment - foreign language interpreter: Respiratory Tract Infection Hx - foreign language interpreter Hx Respiratory Tract Infection No 03/25/25 08:50 STOP Sleep Apnea STOP Sleep Apnea - foreign language interpreter: STOP Sleep Apnea - foreign language interpreter Hx Hypertension Yes 03/25/25 08:50 Hx Sleep Apnea Yes 03/25/25 08:50 CPAP Yes 03/25/25 08:50 BIPAP No 03/25/25 08:50 Do you snore loudly (louder than talking or can be heard Do you often feel tired/ fatigued/ sleepy during daytime? Has anyone observed you stop breathing during sleep? STOP Results Positive 03/25/25 08:50 QUESTION #5 FULL TEXT : Do you snore loudly (louder than talking or can be heard through closed doors)? Tobacco Use History Tobacco Use History - foreign language interpreter: Tobacco Use History - foreign language interpreter Tobacco Use Smoking Status Never smoker 03/25/25 08:50 Hx Tobacco Use No 03/25/25 08:50 Years Smoking Packs Smoked per Day Smoking Cessation Date was within the last 15 years Hx Smoking Cessation Date Hx Smoking Cessation Counseling Hematologic Medial History Hematologic Hx - foreign language interpreter: Hematologic Medical Hx - director workers compensation Hx of Blood Transfusion No 03/25/25 08:50 Hx of Transfusion in last 3 No 03/25/25 08:50 Months Date of Last Transfusion (if within last 3 months) Ever experience any problems No 03/25/25 08:50 with transfusion(s)? Specify any problems Hx of Preganancy in last 3 No 03/25/25 08:50 Months Nurse Filling Out Transfusion [email or web address] 03/25/25 08:50 & Questions: Date: 03/25/25 03/25/25 08:50 Time: 08:53 03/25/25 08:50 Patient unable to answer at this time (ie. confused, unrespo /Reproduction History /Reproductive History - foreign language interpreter: /Reproductive Hx- foreign language interpreter Hx Now Gestational Age (in weeks): EDC: Hx Hx Para Hx Section SAB PFSH Medical History (Updated 03/25/25 @ 08:59 by Karan Ward) Wears glasses Wears partial dentures PARRY (nonalcoholic steatohepatitis) Low iron Fatty liver Gastric reflux Sleep apnea History of edema Cardiology follow-up encounter History of echocardiogram Depression Diabetes Osteoporosis Non-smoker CPAP (continuous positive airway pressure) dependence Asthma Unstable angina Esophageal varices Bilateral carotid artery disease SEVERINO (obstructive sleep apnea) GERD (gastroesophageal reflux disease) Essential (primary) hypertension Edema Cirrhosis Diabetes type 2 Coronary artery disease Home Medications ?Medication ?Instructions ?Recorded ?Last Taken ?Type methocarbamol 750 mg tablet 1,500 mg PO QHS PRN muscle spasms 12/04/24 12/03/24 History nitroglycerin 0.4 mg sublingual 0.4 mg sublingual Q5-15M PRN chest 12/04/24 Unknown History tablet pain cholecalciferol (vitamin D3) 325 125 mcg PO QODAY 01/08/25 Unknown History mcg (13,000 unit) capsule pantoprazole 40 mg tablet,delayed 40 mg PO QDAY 01/08/25 Unknown History release simvastatin 20 mg tablet 20 mg PO QDAY 01/08/25 Unknown History alendronate 70 mg tablet 70 mg PO QWEEK 03/05/25 Unknown History spironolactone 100 mg tablet 100 mg PO BID #90 tabs 03/05/25 Unknown Rx nadolol 20 mg tablet 10 mg (1/2 x 20 mg) PO BID 90 days 03/19/25 Unknown Rx #90 tabs peg 3350-electrolytes 236 240 ml PO Q10M #4,000 mL 03/19/25 Unknown Rx gram-22.74 gram-6.74 gram-5.86 gram solution (Golytely) peg 3350-electrolytes 236 240 ml PO Q10M #4,000 mL 03/19/25 Unknown Rx gram-22.74 gram-6.74 gram-5.86 gram solution (Golytely) Allergy/AdvReac Type Severity Reaction Status Date / Time Influenza Virus Vaccines Allergy Severe Anaphylaxis Verified 03/25/25 08:48 (flu vaccine) hydrocodone Allergy Angioedema Verified 03/25/25 08:48 Corticosteroids AdvReac Intermediate Other Verified 03/25/25 08:48 (Glucocorticoids) Family History Mother Heart valve replaced Sister Myocardial infarction Surgical History (Updated 03/25/25 @ 08:59 by Karan Ward) History of cardiac catheterization History of coronary artery stent placement History of percutaneous angioplasty (~10/2014) Hx of section Hx of total knee replacement History of total hysterectomy with bilateral salpingo-oophorectomy (BSO) Hx of appendectomy Social History (Updated 03/05/25 @ 15:[address] Pablo Douglas MD) household members: spouse Smoking Status: Never smoker alcohol intake: never substance use type: does not use Audit: Pertinent Findings Pertinent Findings Additional pertinent findings: On 03/05/2025 PT abnormal 18 sec, Hgb abnormal 7.1 g/dl, Hct abnormal 24.4% Recommendation Anesthesia Recommendation Anesthesia recommendation: F/U recommended Follow up Details CBC Recommendation: Yes CBC Rec Details: reevaluate CBC lab compared with 03/05/2025 COAG Recommendation: Yes COAG Rec Details: re-draw PT
--- NOTE | 2025-03-26 16:22 | PAT.ANESEVAL ---
Pre-Assessment Diagnosis/Proposed Procedure Planned Operative Procedure(s): COLONOSCOPY, EGD Anesthesia History Anesthesia History - locker attendant: Anesthesia History - locker attendant Hx Hospitalization Yes: 12/2024 EGD- VARICES 03/25/25 08:50 Any Problems With Anesthesia No 03/25/25 08:50 Cholinesterase deficiency No 03/25/25 08:50 You/Your Family Experience No 03/25/25 08:50 fever (hyperthermia) with Relationship Recent Exposure to Contagious No 12/05/24 16:42 Disease Does patient have nerve No 03/25/25 08:50 stimulator Patient instructed to have device shut off --Does patient have Pacemaker or ICD? When Was Last Pacemaker Check QUESTION #4 FULL TEXT: You/Your Family Experience fever (hyperthermia) with Anesthesia Last Oral Intake Last Oral intake: Last Oral Intake NPO since Meds taken in AM with sips of water? Meds patient instructed to take am of surgery PONV PONV - locker attendant: PONV - locker attendant Female Yes 03/25/25 08:50 HX of Motion Sickness No 03/25/25 08:50 HX of N/V After Surgery No 03/25/25 08:50 Non-Smoker Yes 03/25/25 08:50 Duration of Surgery greater No 03/25/25 08:50 than 60 minutes Number of Risk Factors 2 03/25/25 08:50 PONV Score Moderate Risk 03/25/25 08:50 Height & Weight Height & Weight: Anesthesia: Height & Weight Height 5 ft 1 in 03/21/25 08:16 Respiratory Assessment Respiratory Assessment - locker attendant: Respiratory Tract Infection Hx - locker attendant Hx Respiratory Tract Infection No 03/25/25 08:50 STOP Sleep Apnea STOP Sleep Apnea - locker attendant: STOP Sleep Apnea - locker attendant Hx Hypertension Yes 03/25/25 08:50 Hx Sleep Apnea Yes 03/25/25 08:50 CPAP Yes 03/25/25 08:50 BIPAP No 03/25/25 08:50 Do you snore loudly (louder than talking or can be heard Do you often feel tired/ fatigued/ sleepy during daytime? Has anyone observed you stop breathing during sleep? STOP Results Positive 03/25/25 08:50 QUESTION #5 FULL TEXT : Do you snore loudly (louder than talking or can be heard through closed doors)? Tobacco Use History Tobacco Use History - locker attendant: Tobacco Use History - locker attendant Tobacco Use Smoking Status Never smoker 03/25/25 08:50 Hx Tobacco Use No 03/25/25 08:50 Years Smoking Packs Smoked per Day Smoking Cessation Date was within the last 15 years Hx Smoking Cessation Date Hx Smoking Cessation Counseling Hematologic Medial History Hematologic Hx - locker attendant: Hematologic Medical Hx - clinical field specialist Hx of Blood Transfusion No 03/25/25 08:50 Hx of Transfusion in last 3 No 03/25/25 08:50 Months Date of Last Transfusion (if within last 3 months) Ever experience any problems No 03/25/25 08:50 with transfusion(s)? Specify any problems Hx of Preganancy in last 3 No 03/25/25 08:50 Months Nurse Filling Out Transfusion [email or web address] 03/25/25 08:50 & Questions: Date: 03/25/25 03/25/25 08:50 Time: 08:53 03/25/25 08:50 Patient unable to answer at this time (ie. confused, unrespo /Reproduction History /Reproductive History - locker attendant: /Reproductive Hx- locker attendant Hx Now Gestational Age (in weeks): EDC: Hx Hx Para Hx Section SAB PFSH Medical History (Updated 03/25/25 @ 08:59 by Karan Ward) Wears glasses Wears partial dentures PARRY (nonalcoholic steatohepatitis) Low iron Fatty liver Gastric reflux Sleep apnea History of edema Cardiology follow-up encounter History of echocardiogram Depression Diabetes Osteoporosis Non-smoker CPAP (continuous positive airway pressure) dependence Asthma Unstable angina Esophageal varices Bilateral carotid artery disease SEVERINO (obstructive sleep apnea) GERD (gastroesophageal reflux disease) Essential (primary) hypertension Edema Cirrhosis Diabetes type 2 Coronary artery disease Home Medications ?Medication ?Instructions ?Recorded ?Last Taken ?Type methocarbamol 750 mg tablet 1,500 mg PO QHS PRN muscle spasms 12/04/24 12/03/24 History nitroglycerin 0.4 mg sublingual 0.4 mg sublingual Q5-15M PRN chest 12/04/24 Unknown History tablet pain cholecalciferol (vitamin D3) 325 125 mcg PO QODAY 01/08/25 Unknown History mcg (13,000 unit) capsule pantoprazole 40 mg tablet,delayed 40 mg PO QDAY 01/08/25 Unknown History release simvastatin 20 mg tablet 20 mg PO QDAY 01/08/25 Unknown History alendronate 70 mg tablet 70 mg PO QWEEK 03/05/25 Unknown History spironolactone 100 mg tablet 100 mg PO BID #90 tabs 03/05/25 Unknown Rx nadolol 20 mg tablet 10 mg (1/2 x 20 mg) PO BID 90 days 03/19/25 Unknown Rx #90 tabs peg 3350-electrolytes 236 240 ml PO Q10M #4,000 mL 03/19/25 Unknown Rx gram-22.74 gram-6.74 gram-5.86 gram solution (Golytely) peg 3350-electrolytes 236 240 ml PO Q10M #4,000 mL 03/19/25 Unknown Rx gram-22.74 gram-6.74 gram-5.86 gram solution (Golytely) Allergy/AdvReac Type Severity Reaction Status Date / Time Influenza Virus Vaccines Allergy Severe Anaphylaxis Verified 03/25/25 08:48 (flu vaccine) hydrocodone Allergy Angioedema Verified 03/25/25 08:48 Corticosteroids AdvReac Intermediate Other Verified 03/25/25 08:48 (Glucocorticoids) Family History Mother Heart valve replaced Sister Myocardial infarction Surgical History (Updated 03/25/25 @ 08:59 by Karan Ward) History of cardiac catheterization History of coronary artery stent placement History of percutaneous angioplasty (~10/2014) Hx of section Hx of total knee replacement History of total hysterectomy with bilateral salpingo-oophorectomy (BSO) Hx of appendectomy Social History (Updated 03/05/25 @ 15:[address] Pablo Douglas MD) household members: spouse Smoking Status: Never smoker alcohol intake: never substance use type: does not use Audit: Pertinent Findings HISTORY of Pertinent Findings History of Pertinent Findings: Additional Pertinent Findings Additional pertinent findings On 03/05/2025 PT abnormal 18 03/25/25 16:31 sec, Hgb abnormal 7.1 g/dl, Hct abnormal 24.4% Pertinent Findings EKG Perinent findings: January 08, 2025. Sinus rhythm. Echo (EF%) pertinent findings: February 24, 2025. EF of 65%. PASP is 36 mmHg. Normal aortic valve. Mean aortic valve gradient is 14 mmHg. Consult pertinent findings: January 08, 2025. Dr. Cruz. 1. Coronary artery disease?acute-status post PCI of the LAD. Recently reevaluated and was noted to be patent. Continue with medical therapy. Discontinue Plavix at this time. 2. Hypertension?acute-good control. No changes at this time. 3. Esophageal varices?acute-patient is to discontinue Plavix at this time to reduce the risk of bleed. Continue the beta-nicolasa. 4. Aortic stenosis?acute-mild aortic stenosis. Recheck echo (see above). Additional pertinent findings: Hemoglobin on March 18 was 7.1. 2 units of packed red blood cells was given on 03/20/2025. Will recheck a CBC on day of surgery. Recommendation Anesthesia Recommendation Anesthesia recommendation: OPTIMIZED for anesthesia (Recheck labs on day of surgery.)
[2025-03-27] VITALS (10 sets, daily range): BP systolic 96–132; BP diastolic 55–106; PULSE 55–72; RESP 16; TEMP 36.1–36.4; O2SAT 96–100; BMI 44.9
--- NOTE | 2025-03-27 10:30 | PCM.HP.STD ---
HPI - General General Date of Admission: 03/27/25 Date of Service: 03/27/25 Chief Complaint: cirrhosis and need for screening colonoscopy HPI Orestes JANE, is a 70 F who presents Chief Complaint: cirrhosis and need for screening colonoscopy [facility] established .10.29 with PMHx of Cirrhosis diagnosed in [place]. Pt recently moved to [place] and wanting to establish care. Last EGD in Jun 2024 with esophageal varices. Colonoscopy at the same time. Pt also with heartburn and on PPI for years. She has a daily bm sometimes loose and sometimes formed Biochemical work up .10.29: WBC 2.8, Hgb 5.7, PT 18.7, INR 1.5, AST 39, alp 142, AFP 9.4 MELD .05.29; 11 *Labs ordered and Hgb of 5.6. Pt was called and recommended she go to the ED [facility] admission for low hemoglobin 4..-4..25. Started on nadolol for esophageal varices. Transfused and Hgb on discharge 8.3. EGD 12.05.24: - Grade II esophageal varices. - Portal hypertensive gastropathy. - Four bleeding angiodysplastic lesions in the duodenum. Treated with a heater probe. - Two angiodysplastic lesions in the jejunum. Treated with a heater probe. - No specimens collected. CT abd/pelvis 12.04.24: Ascites. Findings suggestive of cirrhosis of the liver with evidence of splenomegaly. Sigmoid diverticulosis. OV 4.9.25 Pt feeling much better since her hospitalization. SHe is no longer having any headaches or SOB. OV 7.2.25 Pt having increased lower extremity swelling. She feels that the spironolactone helped at first but it is no longer helping at this point. She feels sob and like she may have fluid in her abd. She continues with nadolol, spironolactone and PPI. She denies abd pain, pruritis, confusion, constipation or diarrhea. *Blood work with low hgb 6.4. Advised to go to the ED [facility] ED 7..25 Transfused and discharged OV 7.16.25 Pt here for f/u after ED visit for blood transfusion. She feels less fatigued and has more energy. She continues to have complaints of swelling in her lower extremities. Increased dose of spironolactone causing musculoskeletal pains. Coding Level of Care Code [facility] Medical History Wears glasses Wears partial dentures PARRY (nonalcoholic steatohepatitis) Low iron Fatty liver Gastric reflux Sleep apnea History of edema Cardiology follow-up encounter History of echocardiogram Depression Diabetes Osteoporosis Non-smoker CPAP (continuous positive airway pressure) dependence Asthma Unstable angina Esophageal varices Bilateral carotid artery disease SEVERINO (obstructive sleep apnea) GERD (gastroesophageal reflux disease) Essential (primary) hypertension Edema Cirrhosis Diabetes type 2 Coronary artery disease Home Medications ?Medication ?Instructions ?Recorded ?Last Taken ?Type methocarbamol 750 mg tablet 1,500 mg PO QHS PRN muscle spasms 12/04/24 12/03/24 History nitroglycerin 0.4 mg sublingual 0.4 mg sublingual Q5-15M PRN chest 12/04/24 Unknown History tablet pain cholecalciferol (vitamin D3) 325 125 mcg PO QODAY 01/08/25 Unknown History mcg (13,000 unit) capsule pantoprazole 40 mg tablet,delayed 40 mg PO QDAY 01/08/25 Unknown History release simvastatin 20 mg tablet 20 mg PO QDAY 01/08/25 Unknown History alendronate 70 mg tablet 70 mg PO QWEEK 03/05/25 Unknown History spironolactone 100 mg tablet 100 mg PO BID #90 tabs 03/05/25 Unknown Rx nadolol 20 mg tablet 10 mg (1/2 x 20 mg) PO BID 90 days 03/19/25 Unknown Rx #90 tabs peg 3350-electrolytes 236 240 ml PO Q10M #4,000 mL 03/19/25 Unknown Rx gram-22.74 gram-6.74 gram-5.86 gram solution (Golytely) peg 3350-electrolytes 236 240 ml PO Q10M #4,000 mL 03/19/25 Unknown Rx gram-22.74 gram-6.74 gram-5.86 gram solution (Golytely) Allergy/AdvReac Type Severity Reaction Status Date / Time Influenza Virus Vaccines Allergy Severe Anaphylaxis Verified 03/25/25 08:48 (flu vaccine) hydrocodone Allergy Angioedema Verified 03/25/25 08:48 Corticosteroids AdvReac Intermediate Other Verified 03/25/25 08:48 (Glucocorticoids) Family History Mother Heart valve replaced Sister Myocardial infarction Surgical History History of cardiac catheterization History of coronary artery stent placement History of percutaneous angioplasty (~10/2014) Hx of section Hx of total knee replacement History of total hysterectomy with bilateral salpingo-oophorectomy (BSO) Hx of appendectomy Social History household members: spouse Smoking Status: Never smoker alcohol intake: never substance use type: does not use ROS Constitutional Constitutional: Denies fatigue, fever(s), poor appetite, weight gain or weight loss Gastrointestinal Gastrointestinal: Denies belching, bloating, change in bowel habits, change in stool character, chewing difficulty, coffee ground emesis, constipation, cramping, diarrhea, dyspepsia, dysphagia, early satiety, excessive flatus, fecal incontinence, heartburn, hematemesis, hematochezia, hemorrhoids, loose stools, melena, nausea, odynophagia, rectal bleeding, tenesmus, vomiting or weight changes Assessment & Plan Assessment/Plan (1) Microcytic anemia: (2) Esophageal varices: (3) Cirrhosis: (4) Encounter for screening colonoscopy: PLAN: ROS Const Constitutional: No fatigue, fever(s) or weight change ENT ENT: Positive for difficulty swallowing Gastro GI: Positive for abdominal pain, bloating, diarrhea, heartburn, difficulty swallowing, excessive flatus and nausea/dyspepsia; No belching, change in bowel habits, change in stool character, coffee ground emesis, constipation, cramping, feeling full early, incontinent of stools, Vomiting blood/hematemesis, Blood in stool, loose stools, Black,tarry stools, pain with swallowing, vomiting or other Musc Musculoskeletal: Positive for back pain, numbness, stiffness, tingling and Arthritis; No joint pain Skin Skin: Positive for dry skin; No yellowing of the eye or itchy eyes Neuro Neurology: Positive for numbness and tingling Psych Psychiatric: Positive for anxiety, Positive for depression and Positive for inattentiveness Endo Endocrine: No fatigue or weight change Aller/Imm Allergy/Immunologic: No itchy eyes Piero/Lymp Hematologic/Lymphatic: No easy bleeding or easy bruising Exam Const General: cooperative, healthy appearing and comfortable Orientation: alert Eyes General: appearance normal, both eyes and all related structures Neck Neck: normal visual inspection Chest Chest palpation & inspection: normal inspection of the chest Resp Effort & Inspection: normal respiratory effort Cardio Rate: regular rate Rhythm: regular rhythm GI Inspection: normal to inspection and obesity Palpation: soft and nontender Extrem General: edema Assessment and Plan Assessment and Plan (1) Microcytic anemia: Status: Acute Plan: Dian is a 70 yo female pt here today for f/u regarding her anemia and cirrhosis. Following pt last visit she was advised to go to the ED due to low hgb. SHe was transfused and discharged. I did have her scheduled for both upper and lower endoscopy. Last EGD in December 2024 with bleeding AVMs in the duodenum and stomach. Also with esophageal varices. Started on Nadolol. Spironolactone started. Would like to start lasix however pt has had adverse reaction to this in the past. Repeat Hgb from 7.. was 7.1. Will plan for outpatient blood transfusion prior to endoscopies which is scheduled for 03.27.25. Pt denies any signs and symptoms are acute GI bleeding including blood/black tarry stool, sob, dizziness or fatigue. She will f/u with Dr. Hart for further management of her cirrhosis. -EGD and Colonoscopy 03.27.25 -outpatient blood transfusion -Continue spironolactone -Continue nadolol -f/u with Dr. Hart for management of cirrhosis (2) Esophageal varices: Status: Acute (3) GERD (gastroesophageal reflux disease): Status: Acute (4) Cirrhosis: Status: Acute Orders: Orders T&S with Crossmatch, Red Cells Today D50.9 - Iron deficiency anemia, unspecified, I85.00 - Esophageal varices without bleeding Medications: New peg 3350-electrolytes 236-22.74-6.74 -5.86 gram (Golytely) until fecal effluent is clear 240 mL PO Q10M 4,000 mL 0RF peg 3350-electrolytes 236-22.74-6.74 -5.86 gram (Golytely) until fecal effluent is clear 240 mL PO Q10M 4,000 mL 0RF Refilled nadolol 10 mg (1/2 x 20 mg) PO BID 90 tabs 0RF 90 days
--- NOTE | 2025-03-27 10:45 | EGD_PTH ---
PATIENT: LISSETTE JANE LOC: EN U#:[id number] AGE/SX: 70/F ROOM: RE03/27/[address]: Dr. Francisco Zaman DO : 1955 BED: DIS: 03/27/2025 SPEC #: [id number] RECD: 03/27/25 17:53 STATUS: VINAY REAlvin #: [id number] CARINA: 03/27/25 10:[address]: Francisco Zaman DEPT: SURGICAL PATHOLOGY RECD BY: Alejandro Moore ENTERED: 03/28/25 09:50 SP TYPE: EGD BIOPSY OTHR DR: Casie Nayak, [facility] Tissues: A - Gastric mucous membrane B - Cecum, NOS Procedures: Immunohistochemical Stains Surgery Specimen Level IV HEADER OPERATION: Colonoscopy with electrohemostasis, EGD and biopsy and polyp PRE-OP DIAGNOSIS: Esophageal varices, cirrhosis, need for screening colonoscopy, anemia TISSUE SUBMITTED: A- Gastric body biopsy, B- Cecal polyp MICROSCOPIC DIAGNOSIS A. Gastric body, biopsy: - Oxyntic mucosa with mild chronic inflammation. - IHC negative for H.pylori organisms. B. Cecum, colon, biopsy: - No specific pathologic change. MICROSCOPIC DESCRIPTION Slides are reviewed. All matched controls reacted appropriately. These tests were developed and their performance characteristics determined by [facility]. They may not have been cleared or approved by the U.S. Food and Drug Administration. The FDA has determined that such clearance or approval is not necessary. The above immunohistochemical/dualISH markers are viewed by the Pathologist. GROSS DESCRIPTION A. Received in fixative is one container labeled with the patient's name and designated Gastric body biopsy. The specimen consists of one irregular fragment of light terrell soft tissue that measures 0.7 cm. The specimen is totally submitted in one cassette. B. Received in fixative is one container labeled with the patient's name and designated Cecal polyp. The specimen consists of one irregular fragment of light terrell soft tissue that measures 0.3 cm. The specimen is totally submitted in one cassette. PA 03/28/2025 CPT:96298c7,93507
[2025-03-27 10:49] LABS: Hematocrit 35.7 % (37-47); Hemoglobin 10.4 g/dL (12.0-15.0); Mean Corp Hgb Conc 29.1 g/dL (32-36); Mean Corpuscular Volume 74.5 fL (81-99); POSITIVE MORPHOLOGY YES; Platelet Count 112 K/mm3 (150-450); RBC Distribution Width CV 24.2 % (11.6-14.6); RBC Distribution Width SD 64.4 fl (35.1-43.9); Red Blood Count 4.79 M/mm3 (4.2-5.4); White Blood Count 3.6 K/mm3 (4.4-11.0)
--- NOTE | 2025-03-27 11:02 | PCM.PRE.AN2 ---
ASA Classification* ASA Classification ASA Classification: 3 Assessment & Plan Anesthesia* Anesthesia Assessment Anesthesia Assessment: Discussed sedation and/or anesthesia options, risks, benefits, and alternatives with patient/parents/legal guardian/POA. Questions invited. The patient/parents/legal guardian/POA seems to understand and agrees to proceed with anesthesia plan. Reviewed the physical assessment, medical history, allergy history and patient home medications list prior to surgery/procedure/anesthetic and documented any changes. Performed airway and anesthesia risk assessments. Anesthesia Type Anesthesia Type: General and MAC History Source History Obtained from:: Patient and Chart Anesthesia Focused Assessment* Temperature: 97.2 F Pulse Rate: 59 Blood Pressure: 132/62 Respiratory Rate: 16 Pulse Ox: 100 Airway Assessment Mouth opens: >3 cm Mallampati Score: II Teeth Condition: Dentures (Upper partial dentures removed prior to procedure) Neck Range of motion (ROM): Full ROM Labs Anesthesia Preop lab: CBC WBC 3.6 K/mm3 (4.4-11.0) L 03/27/25 10:35 03/27/25 RBC 4.79 M/mm3 (4.2-5.4) 03/27/25 10:35 03/27/25 Hgb 10.4 g/dL (12.0-15.0) L 03/27/25 10:35 03/27/25 Hct 35.7 % (37-47) L 03/27/25 10:35 03/27/25 Plt Count 112 K/mm3 (150-450) L 03/27/25 10:35 03/27/25 CHEMISTRY Potassium 3.7 mmol/L (3.3-5.1) 03/05/25 09:20 03/05/25 Sodium 141 mmol/L (133-145) 03/05/25 09:20 03/05/25 Magnesium 1.8 mg/dL (1.5-2.2) 12/05/24 05:27 12/05/24 Phosphorus 3.0 mg/dL (2.7-4.5) 12/05/24 05:27 12/05/24 BUN 11 mg/dL (4-19) 03/05/25 09:20 03/05/25 Creatinine 0.58 mg/dL (0.70-1.20) L 03/05/25 09:20 03/05/25 Glucose 141 mg/dL (70-99) H 03/05/25 09:20 03/05/25 COAG PT 18.0 SECONDS (11.7-14.9) H 03/05/25 09:20 03/05/25 Pre-Assessment Diagnosis/Proposed Procedure Planned Operative Procedure(s): COLONOSCOPY, EGD Anesthesia History Anesthesia History - manager industrial: Anesthesia History - manager industrial Hx Hospitalization Yes: 12/2024 EGD- [facility] 03/25/25 08:50 Any Problems With Anesthesia No 03/25/25 08:50 Cholinesterase deficiency No 03/25/25 08:50 You/Your Family Experience No 03/25/25 08:50 fever (hyperthermia) with Relationship Recent Exposure to Contagious No 03/27/25 10:43 Disease Does patient have nerve No 03/25/25 08:50 stimulator Patient instructed to have device shut off --Does patient have Pacemaker No 03/27/25 10:43 or ICD? When Was Last Pacemaker Check QUESTION #4 FULL TEXT: You/Your Family Experience fever (hyperthermia) with Anesthesia Last Oral Intake Last Oral intake: Last Oral Intake NPO since 18:00 03/27/25 10:43 Meds taken in AM with sips of Yes 03/27/25 10:43 water? Meds patient instructed to see chart 03/27/25 10:43 take am of surgery PONV PONV - manager industrial: PONV - manager industrial Female Yes 03/25/25 08:50 HX of Motion Sickness No 03/25/25 08:50 HX of N/V After Surgery No 03/25/25 08:50 Non-Smoker Yes 03/25/25 08:50 Duration of Surgery greater No 03/25/25 08:50 than 60 minutes Number of Risk Factors 2 03/25/25 08:50 PONV Score Moderate Risk 03/25/25 08:50 Height & Weight Height & Weight: Anesthesia: Height & Weight Height 5 ft 1 in 03/27/25 10:43 Weight: 108 kg 03/27/25 10:43 Body Mass Index (BMI) 44.9 03/27/25 10:43 Respiratory Assessment Respiratory Assessment - manager industrial: Respiratory Tract Infection Hx - manager industrial Hx Respiratory Tract Infection No 03/25/25 08:50 STOP Sleep Apnea STOP Sleep Apnea - manager industrial: STOP Sleep Apnea - manager industrial Hx Hypertension Yes 03/25/25 08:50 Hx Sleep Apnea Yes 03/25/25 08:50 CPAP Yes 03/25/25 08:50 BIPAP No 03/25/25 08:50 Do you snore loudly (louder than talking or can be heard Do you often feel tired/ fatigued/ sleepy during daytime? Has anyone observed you stop breathing during sleep? STOP Results Positive 03/25/25 08:50 QUESTION #5 FULL TEXT : Do you snore loudly (louder than talking or can be heard through closed doors)? Tobacco Use History Tobacco Use History - manager industrial: Tobacco Use History - manager industrial Tobacco Use Smoking Status Never smoker 03/25/25 08:50 Hx Tobacco Use No 03/25/25 08:50 Years Smoking Packs Smoked per Day Smoking Cessation Date was within the last 15 years Hx Smoking Cessation Date Hx Smoking Cessation Counseling Hematologic Medial History Hematologic Hx - manager industrial: Hematologic Medical Hx - documentation consultant Hx of Blood Transfusion No 03/25/25 08:50 Hx of Transfusion in last 3 No 03/25/25 08:50 Months Date of Last Transfusion (if within last 3 months) Ever experience any problems No 03/25/25 08:50 with transfusion(s)? Specify any problems Hx of Preganancy in last 3 No 03/25/25 08:50 Months Nurse Filling Out Transfusion [email or web address] 03/25/25 08:50 & Questions: Date: 03/25/25 03/25/25 08:50 Time: 08:53 03/25/25 08:50 Patient unable to answer at this time (ie. confused, unrespo /Reproduction History /Reproductive History - manager industrial: /Reproductive Hx- manager industrial Hx Now Gestational Age (in weeks): EDC: Hx Hx Para Hx Section SAB Active Medications Active Medications: Current Medications Generic Name Dose Route Start Last Admin Trade Name Freq PRN Reason Stop Dose Admin Lactated Ringer's 1,000 mls @ 15 mls/hr 03/27/25 10:15 IV .Q48H ELLIOTT PFSH Medical History Wears glasses Wears partial dentures PARRY (nonalcoholic steatohepatitis) Low iron Fatty liver Gastric reflux Sleep apnea History of edema Cardiology follow-up encounter History of echocardiogram Depression Diabetes Osteoporosis Non-smoker CPAP (continuous positive airway pressure) dependence Asthma Unstable angina Esophageal varices Bilateral carotid artery disease SEVERINO (obstructive sleep apnea) GERD (gastroesophageal reflux disease) Essential (primary) hypertension Edema Cirrhosis Diabetes type 2 Coronary artery disease Home Medications ?Medication ?Instructions ?Recorded ?Last Taken ?Type methocarbamol 750 mg tablet 1,500 mg PO QHS PRN muscle spasms 12/04/24 12/03/24 History nitroglycerin 0.4 mg sublingual 0.4 mg sublingual Q5-15M PRN chest 12/04/24 Unknown History tablet pain cholecalciferol (vitamin D3) 325 125 mcg PO QODAY 01/08/25 03/24/25 History mcg (13,000 unit) capsule pantoprazole 40 mg tablet,delayed 40 mg PO QDAY 01/08/25 03/25/25 History release simvastatin 20 mg tablet 20 mg PO QDAY 01/08/25 03/26/25 History alendronate 70 mg tablet 70 mg PO QWEEK 03/05/25 03/24/25 History spironolactone 100 mg tablet 100 mg PO BID #90 tabs 03/05/25 03/24/25 Rx nadolol 20 mg tablet 10 mg (1/2 x 20 mg) PO BID 90 days 03/19/25 03/27/25 Rx #90 tabs peg 3350-electrolytes 236 240 ml PO Q10M #4,000 mL 03/19/25 Unknown Rx gram-22.74 gram-6.74 gram-5.86 gram solution (Golytely) peg 3350-electrolytes 236 240 ml PO Q10M #4,000 mL 03/19/25 03/26/25 Rx gram-22.74 gram-6.74 gram-5.86 gram solution (Golytely) Allergy/AdvReac Type Severity Reaction Status Date / Time Influenza Virus Vaccines Allergy Severe Anaphylaxis Verified 03/27/25 10:41 (flu vaccine) hydrocodone Allergy Angioedema Verified 03/27/25 10:41 Corticosteroids AdvReac Intermediate Other Verified 03/27/25 10:41 (Glucocorticoids) Family History Mother Heart valve replaced Sister Myocardial infarction Surgical History History of cardiac catheterization History of coronary artery stent placement History of percutaneous angioplasty (~10/2014) Hx of section Hx of total knee replacement History of total hysterectomy with bilateral salpingo-oophorectomy (BSO) Hx of appendectomy Social History household members: spouse Smoking Status: Never smoker alcohol intake: never substance use type: does not use Review of Systems (Anesthesia) ROS Narrative System reviewed and no additional complaints, except as documented.
[2025-03-27 11:28] LABS: Prothrombin Time (Protime)PT. 18.0 SECONDS (11.7-14.9)
[2025-03-27 11:41] LABS: Scan Indicated on CBC? Y/N YES- FLAGS NOTED
--- NOTE | 2025-03-27 11:44 | OP.CCLET_ITS ---
03/27/2025 Natalie Mishra Re : Upper GI endoscopy procedure for Dian Cabrera Dear Nael This procedure was performed on March. My impressions and recommendations are as follows: Impressions : - Grade II esophageal varices. - Portal hypertensive gastropathy. Biopsied. - No gross lesions in the entire examined duodenum. Recommendations : - Discharge patient to home. - Resume previous diet. - Continue present medications. My findings are described in the full procedure note, which is enclosed. If I can be of further assistance, please feel free to contact me at . Sincerely, Francisco Zaman, 03/27/2025 11:44:12 AM This report has been signed electronically.
--- NOTE | 2025-03-27 11:44 | OP.EGD_ITS ---
Patient Name: Dian Cabrera Procedure Date: 03/27/2025 10:57 AM Date of : 1955 Age: 70 Procedure: Upper GI endoscopy Indications: Iron deficiency anemia Providers: Francisco Zaman DO Referring MD: Natalie Mishra Medicines: Monitored Anesthesia Care Patient Profile: This is a 70 year old female. Refer to note in patient chart for documentation of history and physical. Patient has symptoms. Her most recent EGD for treatment of bleeding was within the past six months. Complications: No immediate complications. Procedure: Pre-Anesthesia Assessment: - Prior to the procedure, a History and Physical was performed, and patient medications and allergies were reviewed. The patient is competent. The risks and benefits of the procedure and the sedation options and risks were discussed with the patient. All questions were answered and informed consent was obtained. Patient identification and proposed procedure were verified by the physician in the pre-procedure area. Mental Status Examination: alert and oriented. Airway Examination: normal oropharyngeal airway and neck mobility. Respiratory Examination: clear to auscultation. CV Examination: normal. Prophylactic Antibiotics: The patient does not require prophylactic antibiotics. Prior Anticoagulants: The patient has taken no anticoagulant or antiplatelet agents. ASA Grade Assessment: III - A patient with severe systemic disease. After reviewing the risks and benefits, the patient was deemed in satisfactory condition to undergo the procedure. The anesthesia plan was to use monitored anesthesia care (MAC). Immediately prior to administration of medications, the patient was re-assessed for adequacy to receive sedatives. The heart rate, respiratory rate, oxygen saturations, blood pressure, adequacy of pulmonary ventilation, and response to care were monitored throughout the procedure. The physical status of the patient was re-assessed after the procedure. After obtaining informed consent, the endoscope was passed under direct vision. Throughout the procedure, the patient's blood pressure, pulse, and oxygen saturations were monitored continuously. The colonoscope was introduced through the mouth, and advanced to the jejunum. Small bowel enteroscopy was deemed necessary. The upper GI endoscopy was accomplished without difficulty. The patient tolerated the procedure well. Scope In: 11:17:58 AM Scope Out: 11:21:06 AM Total Procedure Duration Time 0 hours 3 minutes 8 seconds Findings: Grade II varices were found in the lower third of the esophagus. They were 8 mm in largest diameter. Severe portal hypertensive gastropathy was found in the entire examined stomach. Biopsies were taken with a cold forceps for histology. Verification of patient identification for the specimen was done. Estimated blood loss was minimal. Biopsies were taken with a cold forceps for Helicobacter pylori testing. Verification of patient identification for the specimen was done. Estimated blood loss was minimal. No gross lesions were noted in the entire examined duodenum. Impression: - Grade II esophageal varices. - Portal hypertensive gastropathy. Biopsied. - No gross lesions in the entire examined duodenum. Recommendation: - Discharge patient to home. - Resume previous diet. - Continue present medications. Procedure Code(s): --- Professional --- 66997, Small intestinal endoscopy, enteroscopy beyond second portion of duodenum, not including ileum; with biopsy, single or multiple CPT copyright 2021 [employer]. All rights reserved. The codes documented in this report are preliminary and upon medical billing coder review may be revised to meet current compliance requirements. Francisco Zaman DO 03/27/2025 11:44:12 AM This report has been signed electronically. Number of Addenda: 0 Note Initiated On: 03/27/2025 10:57 AM
--- NOTE | 2025-03-27 11:45 | PCM.POST.ANE ---
Anesthesia: Postop Eval I Current Vital Signs Temperature: 97.6 F Pulse Rate: 64 Blood Pressure: 126/106 Respiratory Rate: 16 Pulse Ox: 97 Oxygen Delivery Method: Room Air Assessment Airway patent: Yes Spontaneous unlabored respirations: Yes Mental status: Awake nausea: No Vomiting: No Anesthesia Complication: No Fluid Hydration Crystalloid volume administer (ml): 600 Total IV fluid infused: 600 Progress Note Anesthesia document: Postop Eval 1 completed: Yes
--- NOTE | 2025-03-27 11:48 | OP.CCLET_ITS ---
03/27/2025 Natalie Mishra Re : Colonoscopy procedure for Dian Cabrera Dear Nael This procedure was performed on March. My impressions and recommendations are as follows: Impressions : - Three bleeding colonic angiodysplastic lesions. Treated with a heater probe. - One 5 mm polyp in the cecum, removed with a jumbo cold forceps. Resected and retrieved. - Diverticulosis in the recto-sigmoid colon and in the sigmoid colon. - Non-bleeding external and internal hemorrhoids. Recommendations : - Repeat colonoscopy in 5 years for surveillance. - Continue present medications. My findings are described in the full procedure note, which is enclosed. If I can be of further assistance, please feel free to contact me at . Sincerely, Francisco Zaman, 03/27/2025 11:47:47 AM This report has been signed electronically.
--- NOTE | 2025-03-27 11:48 | OP.COLON_ITS ---
Patient Name: Dian Cabrera Procedure Date: 03/27/2025 11:21 AM Date of : 1955 Age: 70 Procedure: Colonoscopy Indications: Iron deficiency anemia Providers: Francisco Zaman DO Referring MD: Natalie Mishra Medicines: Monitored Anesthesia Care Patient Profile: This is a 70 year old female. Refer to note in patient chart for documentation of history and physical. Patient has symptoms. Her most recent EGD for treatment of bleeding was within the past six months. Last Colonoscopy: several years ago. Complications: No immediate complications. Procedure: Pre-Anesthesia Assessment: - Prior to the procedure, a History and Physical was performed, and patient medications and allergies were reviewed. The patient is competent. The risks and benefits of the procedure and the sedation options and risks were discussed with the patient. All questions were answered and informed consent was obtained. Patient identification and proposed procedure were verified by the physician in the pre-procedure area. Mental Status Examination: alert and oriented. Airway Examination: normal oropharyngeal airway and neck mobility. Respiratory Examination: clear to auscultation. CV Examination: normal. Prophylactic Antibiotics: The patient does not require prophylactic antibiotics. Prior Anticoagulants: The patient has taken no anticoagulant or antiplatelet agents. ASA Grade Assessment: III - A patient with severe systemic disease. After reviewing the risks and benefits, the patient was deemed in satisfactory condition to undergo the procedure. The anesthesia plan was to use monitored anesthesia care (MAC). Immediately prior to administration of medications, the patient was re-assessed for adequacy to receive sedatives. The heart rate, respiratory rate, oxygen saturations, blood pressure, adequacy of pulmonary ventilation, and response to care were monitored throughout the procedure. The physical status of the patient was re-assessed after the procedure. After I obtained informed consent, the scope was passed under direct vision. Throughout the procedure, the patient's blood pressure, pulse, and oxygen saturations were monitored continuously. The colonoscope was introduced through the anus and advanced to the terminal ileum. The colonoscopy was performed without difficulty. The patient tolerated the procedure well. The quality of the bowel preparation was adequate. The terminal ileum, ileocecal valve, appendiceal orifice, and rectum were photographed. Scope In: 11:22:43 AM Scope Withdrawal Time 0 hours 11 minutes 7 seconds Scope Out: 11:36:45 AM Total Procedure Duration Time 0 hours 14 minutes 2 seconds Findings: The perianal and digital rectal examinations were normal. Three small localized angiodysplastic lesions with bleeding were found in the sigmoid colon and in the descending colon. Coagulation for hemostasis using heater probe was successful. Estimated blood loss was minimal. A 5 mm polyp was found in the cecum. The polyp was sessile. The polyp was removed with a jumbo cold forceps. Resection and retrieval were complete. Verification of patient identification for the specimen was done. Estimated blood loss was minimal. A few small and large-mouthed diverticula were found in the recto-sigmoid colon and sigmoid colon. Non-bleeding external and internal hemorrhoids were found during retroflexion. The hemorrhoids were Grade II (internal hemorrhoids that prolapse but reduce spontaneously). Impression: - Three bleeding colonic angiodysplastic lesions. Treated with a heater probe. - One 5 mm polyp in the cecum, removed with a jumbo cold forceps. Resected and retrieved. - Diverticulosis in the recto-sigmoid colon and in the sigmoid colon. - Non-bleeding external and internal hemorrhoids. Recommendation: - Repeat colonoscopy in 5 years for surveillance. - Continue present medications. Procedure Code(s): --- Professional --- 44955, 59, Colonoscopy, flexible; with control of bleeding, any method 47058, Colonoscopy, flexible; with biopsy, single or multiple CPT copyright 2021 [employer]. All rights reserved. The codes documented in this report are preliminary and upon packaging inspector review may be revised to meet current compliance requirements. Francisco Zaman DO 03/27/2025 11:47:47 AM This report has been signed electronically. Number of Addenda: 0 Note Initiated On: 03/27/2025 11:21 AM
--- NOTE | 2025-03-27 14:56 | PCM.POSTANE2 ---
Anesthesia Postop Eval I Sum Postop Eval Completion status Anesthesia document: Postop Eval 1 completed: Yes Anesthesia Postop Eval I Summary Anesthesia Postop Eval I Summary: Anesthesia Postop Eval I: Assessment Summary Airway patent Yes 03/27/25 11:46 [email or web address] Spontaneous unlabored Yes 03/27/25 11:46 [email or web address] respirations Mental status Awake 03/27/25 11:46 [email or web address] nausea No 03/27/25 11:46 [email or web address] Vomiting No 03/27/25 11:46 [email or web address] Anesthesia Postop Eval I: Fluid Summary Crystalloid volume administer 600 03/27/25 11:46 [email or web address] (ml) Colloids volume administered ( ml) Blood Product volume administered (ml) Total IV fluid infused 600 03/27/25 11:46 [email or web address] Anesthesia Postop Eval I: Summary Notes Anesthesia Complication No 03/27/25 11:46 [email or web address] Anesthesia Complication Comment: Post-operative progress note Anesthesia: Postop Eval II Evaluation Mental status: Awake and Calm Pain Level: 2 nausea: No Vomiting: No Complications Anesthesia Complication: No
== END 2025-03-27 12:42 | disposition home or self-care (01) ==
LOC: EN 09:55 → AC 09:55
PROVIDERS: Anesthesiology; PCP Nurse Practitioner Family; Referring Provider Nurse Practitioner Family; Visit Provider Internal Medicine Gastroenterology
PROC: 0DJD8ZZ Inspection of Lower Intestinal Tract, Via Natural or Artificial Opening Endoscopic (ICD-10-PCS; CPT 45378; principal; 2025-03-27 10:40)
DX: Z12.11 Encounter for screening for malignant neoplasm of colon (principal); I85.00 Esophageal varices without bleeding; K76.6 Portal hypertension; K74.60 Unspecified cirrhosis of liver; E11.43 Type 2 diabetes mellitus with diabetic autonomic (poly)neuropathy; D50.9 Iron deficiency anemia, unspecified; I25.10 Atherosclerotic heart disease of native coronary artery without angina pectoris; K57.30 Diverticulosis of large intestine without perforation or abscess without bleeding; K63.5 Polyp of colon; R20.2 Paresthesia of skin; R20.0 Anesthesia of skin; F41.9 Anxiety disorder, unspecified; F32.A Depression, unspecified; K21.9 Gastro-esophageal reflux disease without esophagitis; K55.21 Angiodysplasia of colon with hemorrhage; K64.1 Second degree hemorrhoids; K31.84 Gastroparesis; J45.909 Unspecified asthma, uncomplicated; Z79.899 Other long term (current) drug therapy; K29.50 Unspecified chronic gastritis without bleeding
CPT/HCPCS: 44361; 45382; 45380; 82962; 85027; 85610; 88305; 88342; C1889; J2405